=== PATIENT | male | born 1970 | race Caucasian/White ===

== ENCOUNTER 2022-01-16 16:41 | Emergency (ER) | payer BC, SELFPAY ==
--- NOTE | ~2022-01-16 | CT_ITS ---
EXAMINATION: CT abdomen pelvis w con DATE: 01/16/2022 20:37 INDICATION: Hematuria. Fever. TECHNIQUE: Computed tomography (CT) of the abdomen and pelvis was performed with 100 mL Omnipaque 350 intravenous contrast. Automated exposure control and iterative reconstruction technique were employe d. The dose-length product was 1026.94 mGy-cm. COMPARISON: None. FINDINGS: The visualized portions of the lung bases demonstrate minimal atelectasis. Calcified right lung nodules are consistent with old granulomatous disease. There is a 6 mm nodule in left lower lobe . There is a 5 mm nodule in left lower lobe. There is a 4 mm nodule in left lower lobe. No pleural ef fusion. The heart size is normal. No pericardial effusion. The liver, gallbladder, pancreas, adrenal glands, and right kidney are normal. There is a small area of focal volume loss of left kidney. Calci fications in the spleen are consistent with old granulomatous disease. The bladder is not well disten ded. There is diffuse bladder wall thickening. There is an umbilical hernia containing fat. There are no dilated loops of bowel. The appendix is normal. There are no pathologically enlarged lymph nodes. There is no free intraperitoneal fluid. There is mild thoracal lumbar spondylosis. IMPRESSION: 1. Diffuse bladder wall thickening, which may be seen with cystitis. 2. Pulmonary nodules measuring up to 6 mm, probably benign. Consider noncontrast low-dose chest CT in 6-12 months. 3. Umbilical hernia containing fat. Reviewed, dictated and finalized at location A. IMPRESSION: 1. Diffuse bladder wall thickening, which may be seen with cystitis. 2. Pulmonary nodules measuring up to 6 mm, probably benign. Consider noncontras t low-dose chest CT in 6-12 months. 3. Umbilical hernia containing fat.
[2022-01-16 17:08] VITALS: BP 141/93; PULSE 77; RESP 20; TEMP 36.6; O2SAT 98
[2022-01-16 17:15] LABS: Basophils Percent Auto 0.2 % (0.2-1.2); Eosinophils Absolute Auto 0.3 K/mm3 (0-0.3); Eosinophils Percent Auto 2.6 % (0-4.4); Hematocrit 43.5 % (42.0-52.0); Hemoglobin 15.1 g/dL (14.0-18.0); Immature Granulocyte Absolute 0.05 K/mm3 (0.00-0.031); Immature Granulocyte Percent A 0.4 % (0-0.5); Lymphocytes Absolute Auto 3.59 K/mm3 (0.9-3.2); Lymphocytes Percent Auto 29.3 % (18.3-44.2); Mean Corpuscular HGB Conc 34.7 g/dl (32-36); Mean Corpuscular Hemoglobin 30.3 pg (26-34); Mean Corpuscular Volume 87.2 fl (80-100); Mean Platelet Volume 8.8 fl (7.4-10.4); Monocytes Absolute Auto 0.8 K/mm3 (0.1-0.6); Monocytes Percent Auto 6.6 % (2.6-8.5); Neutrophils Absolute Auto 7.5 K/mm3 (1.3-6.7); Neutrophils Percent Auto 60.9 % (45.5-73.1); Platelet Count Result 193 k/mm3 (150-375); Red Blood Count 4.99 M/mm3 (4.6-6.20); Red Cell Distribution Width 12.1 % (11.5-14.5); White Blood Count 12.3 K/mm3 (4.5-10.0)
[2022-01-16 17:21] LABS: Add Urine Microscopic? YES; Appearance Urine Turbid (Clear); Bilirubin Urine 1+ (Negative); Blood Urine 3+ (Negative); Color Urine Red (Yellow); Glucose Urine UA Negative (Negative); Ketones Urine Negative (Negative); Leukocyte Esterase Ur Negative LEU/UL (Negative); Nitrate Urine Negative (Negative); Protein Urine 3+ mg/dL (Negative); Specific Grav Ur >= 1.030 (1.001-1.035); Urobilinogen Urine 0.2 mg/dL (<2.0); pH Urine 5.5 (5.0-9.0)
[2022-01-16 17:25] LABS: Alanine Aminotransferase 58 U/L (6-50); Albumin Level 4.5 g/dL (3.5-5.1); Alkaline Phosphatase 95 U/L (38-126); Anion Gap 10 mmol/L (8-16); Aspartate Amino Transferase 46 U/L (17-59); Bilirubin,Total 0.5 mg/dL (0.2-1.3); Blood Urea Nitrogen 24 mg/dL (9-20); Calcium 9.1 mg/dL (8.4-10.2); Carbon Dioxide 23 mmol/L (22-30); Chloride 107 mmol/L (98-107); Estimated CRCL calculation 115 ml/min; Estimated Glomerular Filt Rate > 60; Glucose 145 mg/dL (65-110); Potassium 4.4 mmol/L (3.4-5.0); Sodium 140 mmol/L (137-145)
[2022-01-16 17:35] LABS: Bacteria Urine Trace /hpf; Mucus Urine Rare /lpf; RBC Urine >75 /hpf (0-2); WBC Urine 51-75 /hpf
--- NOTE | 2022-01-16 18:24 | ED.GENADULT ---
HPI - General Adult General Chief complaint: Urogenital-Male Stated complaint: HEMATURIA Time Seen by Provider: 01/16/22 18:12 History of Present Illness HPI narrative: Patient is a 51-year-old male here for evaluation of urinary symptoms over the past several days. Patient states that his symptoms started out with some burning with urination 4 days ago and also a fever of 101 degrees. He told his primary care doctor who recommended ED evaluation at that time. Patient decided to wait for several days, states his symptoms did improve for a day, but today he started noting blood in his urine and urinary urgency. He denies any back pain, swelling, fevers since 2 days ago, nausea, vomiting, abdominal pain, chest pain or shortness of breath. Related Data Allergies Allergy/AdvReac Type Severity Reaction Status Date / Time No Known Allergies Allergy Unknown Unverified 12/17/21 15:48 Review of Systems Review of Systems: Gen: Denies fevers or chills Eyes: Denies eye pain or visual change ENT: Denies congestion Respiratory: Denies shortness of breath or cough CV: Denies chest pain or palpitations GI: Denies abdominal pain nausea, emesis or diarrhea : Reports urgency and hematuria. Musculoskeletal: Denies back pain or muscle pain Neuro: Denies numbness, tingling, weakness or focal weakness Skin: Denies rash Except as documented, all other systems reviewed and negative PMFSH Family History Family History Other Diabetes mellitus Social History Social History Smoking status: Never smoker Smoking end date: 05/04/05 Alcohol intake: current Alcohol use details: social Substance use: never Gender identity (if verbalized by the patient): Male Exam Narrative: APPEARANCE: Well appearing, no pain in distress, well-nourished. Head: Normocephalic and atraumatic. EYES: PERRLA/EOMI, conjunctivae clear NOSE: No nasal drainage EARS: External ear normal in appearance THROAT: Oropharynx is clear. Mucous membranes are moist. NECK: Supple. No adenopathy, no masses. RESPIRATORY: Airway patent, respirations nonlabored. Clear to auscultation bilaterally, no rales, rhonchi, wheezing. CARDIOVASCULAR: Regular rate and rhythm without murmurs, rubs, or gallops. ABDOMINAL: Normoactive bowel sounds. Soft, nontender, nondistended. No rebound tenderness or guarding. MUSCULOSKELETAL: Extremities are warm and well-perfused. Moves all extremities well. No edema. NEURO: Normal speech. No focal neurologic deficits. SKIN: Skin is warm and dry. No rashes. PSYCHIATRIC: Normal affect/mood. Course Vital Signs Vital signs: Vital Signs Temperature 97.9 F 01/16/22 17:08 Pulse Rate 77 01/16/22 17:08 Respiratory Rate 20 01/16/22 17:08 Blood Pressure 141/93 H 01/16/22 17:08 Pulse Oximetry 98 01/16/22 17:08 Oxygen Delivery Room Air 01/16/22 17:08 Temperature 97.9 F 01/16/22 17:08 Pulse Rate 80 01/16/22 21:40 Respiratory Rate 18 01/16/22 21:40 Blood Pressure 142/68 H 01/16/22 21:40 Pulse Oximetry 99 01/16/22 21:40 Oxygen Delivery Room Air 01/16/22 17:08 Medical Decision Making MDM Narrative Medical decision making narrative: 51 year old male here for evaluation of hematuria, urgency and burning over the past 4 days. Here is he is non-toxic appearing with normal vital signs. He has no abdominal tenderness or CVA tenderness. Workup significant for mikhail hematuria on UA with WBC, leukocytosis to 12.3, CT abdomen with findings suggestive of cystitis. Likely hemorrhagic cystitis; Doubt glomerular bleeding given presence of blood clots in urine. Considered prostatitis but feel unlikely given patient's lack of pelvic pain/systemic symptoms. Shared decision making was used; Will treat with cipro as outpatient and have patient follow up with urology should his symptoms persist. He was given return precautions
[2022-01-16 19:30] VITALS: BP 137/70; PULSE 78; RESP 20; O2SAT 99
[2022-01-16] MEDS: CIPROFLOXACIN 500 MG TAB PO (21:04)
[2022-01-16 21:40] VITALS: BP 142/68; PULSE 80; RESP 18; O2SAT 99
== END 2022-01-16 21:41 | disposition home or self-care (01) ==
PROVIDERS: Emergency Medicine; Emergency Provider Emergency Medicine; PCP Family Medicine
DX: N39.0 Urinary tract infection, site not specified (principal); Z87.891 Personal history of nicotine dependence
CPT/HCPCS: 36415; 74177; 80053; 81001; 85025; 87077; 87086; 87186; 99284; A9270; Q9967

== ENCOUNTER 2023-08-18 14:40 | Outpatient (CLI) | payer BC, SELFPAY ==
--- NOTE | ~2023-08-18 | CT_ITS ---
EXAMINATION:CT diagnostic chest wo con DATE: 08/18/2023 15:15 INDICATION: Solitary pulmonary nodule. TECHNIQUE: Computed tomography (CT) of the chest was performed without intravenous contrast. Automate d exposure control and iterative reconstruction technique were employed. The dose-length product (DLP ) was 271.80 mGy-cm. COMPARISON: None. FINDINGS: There is a 5 mm nodule in right lower lobe. There is a 3 mm nodule in right upper lobe. The re is a 6 mm nodule in left lower lobe. There is a 3 mm nodule in left upper lobe. Calcified pulmonar y nodules and calcified right hilar lymph nodes are consistent with old granulomatous disease. No ple ural effusion. The heart size is normal. No pericardial effusion. There is mild thoracic spondylosis. There is mild chronic anterior wedging of multiple vertebral bodies. IMPRESSION: 1. Pulmonary nodules measuring up to 6 mm, probably benign. Consider noncontrast low-dose chest CT in 6-12 months. Reviewed, dictated and finalized at location E. IMPRESSION: 1. Pulmonary nodules measuring up to 6 mm, probably benign. Consider noncontras t low-dose chest CT in 6-12 months.
== END 2023-08-18 14:41 | disposition home or self-care (01) ==
PROVIDERS: PCP Family Medicine; Visit Provider Physician Assistant
DX: R91.1 Solitary pulmonary nodule (principal); Z87.891 Personal history of nicotine dependence; R91.8 Other nonspecific abnormal finding of lung field
CPT/HCPCS: 71250

== ENCOUNTER 2023-10-13 03:12 | Day surgery (SDC) | payer BC, SELFPAY ==
[2023-09-30 13:13] VITALS: BMI 33.5
[2023-10-13 11:49] VITALS: BP 116/72; PULSE 57; RESP 18; TEMP 36.7; O2SAT 97
[2023-10-13] MEDS: LACTATED RINGERS 1,000 ML 150 ML IV CONT (11:51)
--- NOTE | 2023-10-13 12:34 | P.PNAN_ITS ---
Anes - Initial Pre Proc Eval Procedure: Operation Date: 10/13/23 13:00 Proposed Procedures p Screening Colonoscopy - Karl Ronquillo DO Date/Time: 10/13/23 12:34 Surgeon: Karl Ronquillo DO Pre Op Diagnosis: Screening for malignant neoplasm of colon Patient Data Age: 53 Gender: M Height: 1.78 m Weight: 106 kg Last Vital Signs Temp 98.1 F 10/13/23 11:49 Pulse 57 L 10/13/23 11:49 Resp 18 10/13/23 11:49 BP 116/72 10/13/23 11:49 Pulse Ox 97 10/13/23 11:49 O2 Del Method Room Air 10/13/23 11:49 Allergies Allergy/AdvReac Type Severity Reaction Status Date / Time No Known Allergies Allergy Unknown Verified 10/13/23 11:48 Home Medications Medication Instructions Recorded Confirmed Type tadalafil 5 mg tablet 5 mg PO DAILY #90 tabs 08/04/23 10/13/23 Rx Patient hx anesthesia problems: none Family hx anesthesia problems: none Results Review: All pre-operative results and documents have been reviewed as part of the pre- operative evaluation. [facility] Family History Family History Other Diabetes mellitus Social History Social History Smoking packs per day: 2 Smoking cigarettes per day: 40.0 Years smoked: 16 Smoking pack-years: 32.00 Smoking status: Former smoker Tobacco type: cigarettes Smoking end date: 05/04/05 Alcohol intake: current Drinks per week: 7 Alcohol use details: social Substance use: never Living arrangements: with family Occupation/Education: occupation Gender identity (if verbalized by the patient): Male Spiritual care concerns: No Anes - Eval Final PreProcedure Day of Procedure 10/13/23 12:34 Patient weight: normal Heart: regular rate and rhythm Lungs: clear to auscultation Airway: Mallampati scale class II Neurological: alert and oriented Last oral intake: >/= 8 hours ASA classification: II Emergent: no Anesthetic plan: proceed Anesthesia type and monitoring: general GIVS and standard monitoring Results Review: All pre-operative results and documents have been reviewed as part of the pre- operative evaluation. Informed Consent: The patient's anesthetic plan and its attendant risks and benefits were discussed with the patient/family/POA. Questions were solicited and answers provided to the satisfaction of the patient/family/POA.
--- NOTE | 2023-10-13 13:06 | PM.IMHP ---
H&P: HPI History of Present Illness Date/Time: 10/13/23 13:06 Chief Complaint: screening for colorectal cancer Narrative: this is a 53-year-old man who presents for colonoscopy. He has never had a colonoscopy before. He denies any hematochezia or melena. He denies family history colon cancer. Review of Systems Review of Systems: All systems reviewed & are unremarkable except as noted in HPI and below Constitutional: Constitutional: Denies chills, Denies fever(s), Denies headache(s) and Denies weight loss Eyes: Eyes: Denies change in vision ENT: Denies dizziness, Denies headache(s), Denies neck mass and Denies throat swelling Cardiovascular: Cardiovascular: Denies chest pain, Denies lightheadedness and Denies dyspnea Respiratory: Respiratory: Denies cough, Denies dyspnea and Denies wheezing Gastrointestinal: Gastrointestinal: Denies abdominal pain, Denies change in bowel habits, Denies nausea and Denies vomiting Genitourinary: Genitourinary: Denies hematuria and Denies dysuria Musculoskeletal: Musculoskeletal: Reports as per HPI Integumentary/Breasts: Skin/Breast: Reports as per HPI Neurologic: Denies dizziness and Denies headache(s) Allergic/Immunologic: Allergic/Immunologic: Denies throat swelling and Denies wheezing PMF Family History Family History Other Diabetes mellitus Social History Social History Smoking packs per day: 2 Smoking cigarettes per day: 40.0 Years smoked: 16 Smoking pack-years: 32.00 Smoking status: Former smoker Tobacco type: cigarettes Smoking end date: 05/04/05 Alcohol intake: current Drinks per week: 7 Alcohol use details: social Substance use: never Living arrangements: with family Occupation/Education: occupation Gender identity (if verbalized by the patient): Male Spiritual care concerns: No Meds Home Medications and Allergies Home Medications Medication Instructions Recorded Confirmed Type tadalafil 5 mg tablet 5 mg PO DAILY #90 tabs 08/04/23 10/13/23 Rx Allergies Allergy/AdvReac Type Severity Reaction Status Date / Time No Known Allergies Allergy Unknown Verified 10/13/23 11:48 Vital Signs Vital Signs - 24 hr 10/13/23 11:49 Temperature 36.7 C Pulse Rate 57 L Respiratory Rate 18 Blood Pressure 116/72 Pulse Oximetry 97 Oxygen Delivery Room Air Exam Const: General: no acute distress and alert Orientation/consciousness: patient oriented x3 HENMT: Head: normocephalic and atraumatic Ears: hearing grossly normal bilaterally Face/Nose/Sinus: Normal nares present Mouth: Yes Normal oral and palatal mucosa present Eyes: Periorbital: periorbital findings normal Sclera: sclerae normal EOM: EOMs intact bilaterally Neck: Neck: normal visual inspection, no lymphadenopathy and trachea midline Chest: Chest palpation & inspection: normal inspection of the chest Resp: Effort & Inspection: normal respiratory effort Auscultation: clear to auscultation bilaterally Cardio: Jugular venous distension: no JVD Rate: regular rate Rhythm: regular rhythm Heart sounds: S1 normal heart sound present and S2 normal heart sound present Peripheral pulses: Peripheral pulses 2+ throughout GI: Inspection: normal to inspection GI Palp: Yes Soft to palpation, No Tenderness to palpation present (GI), No Guarding due to palpation present (GI) and No Rebound tenderness present Percussion: Yes normal to percussion Auscultation: normal bowel sounds : General: Yes no CVA tenderness Back/Spine/Pelvis: Back: no CVA tenderness Neuro: General: patient oriented x3, no focal motor deficits and CN's II-XI intact bilaterally Cognition (Neuro): normal cognition Speech: normal speech Motor exam (neuro): 5/5 motor strength present throughout Extrem: General: capillary refill normal and no clubbing, cyanosis or edema Assessm
[2023-10-13 13:39] VITALS: BP 103/56; PULSE 48; RESP 16; O2SAT 95
[2023-10-13 13:49] VITALS: BP 102/70; PULSE 49; RESP 16; O2SAT 96
[2023-10-13 13:59] VITALS: BP 103/66; PULSE 46; RESP 19; O2SAT 98
== END 2023-10-13 14:10 | disposition home or self-care (01) ==
PROVIDERS: PCP Family Medicine; Visit Provider Surgery
PROC: 0DJD8ZZ Inspection of Lower Intestinal Tract, Via Natural or Artificial Opening Endoscopic (ICD-10-PCS; CPT 45378; principal; 2023-10-13 13:00)
DX: Z12.11 Encounter for screening for malignant neoplasm of colon (principal); K63.5 Polyp of colon; Z87.891 Personal history of nicotine dependence
CPT/HCPCS: 45385; 88305; J2704; J7120

== ENCOUNTER 2024-02-01 07:51 | Outpatient (CLI) | payer BC, SELFPAY ==
--- NOTE | ~2024-02-01 | CT_ITS ---
CT Scan of the Chest without Contrast: Clinical Indication: Pulmonary nodule Technique: Contiguous sections were acquired throughout the chest without intravenous contrast. Dose reduction technique was used on this scan by utilizing automated exposure control and iterative recon struction technique. The dose-length product (DLP) was 288.14 mGy-cm. COMPARISON: 08/18/2023 Findings: There is no evidence of any significant mediastinal, hilar or axillary lymphadenopathy. The mediastin al soft tissues appear normal. There is no evidence of pleural or pericardial effusion. 5 mm right middle lobe pulmonary nodule present, unchanged. Stable small fissural nodules along the r ight minor fissure. Stable calcified right basilar granuloma. Stable 5 mm right lower lobe pulmonary nodule (axial image 77). Stable 6 mm left lower lobe pulmonary nodule (axial image 78). Stable small pleural-based nodule medially at the left lower lobe. Images through the upper abdomen reveal no abnormalities. Impression: Stable subcentimeter pulmonary nodules, as detailed above, largest measuring 6 mm. Reviewed, dictated and finalized at location M. Impression: Stable subcentimeter pulmonary nodules, as detailed above, largest measuring 6 mm.
== END 2024-02-01 07:52 | disposition home or self-care (01) ==
PROVIDERS: PCP Family Medicine; Visit Provider Physician Assistant
DX: R91.8 Other nonspecific abnormal finding of lung field (principal)
CPT/HCPCS: 71250

== ENCOUNTER 2024-11-05 11:27 | Emergency (ER) | payer OTHER, BC, SELFPAY ==
--- NOTE | ~2024-11-05 | XR_ITS ---
HISTORY: Pain after hyper extension COMPARISON: None TECHNIQUE: 3 views of the right knee were performed FINDINGS: Acute (likely) avulsion fracture of the fibular head is identified. Medial and lateral tibiofemoral joint space narrowing is identified. Large suprapatellar joint effusion is identified. The infrapatellar joint space is clear. IMPRESSION: Acute (likely) avulsion fracture of the fibular head is suspected with a large suprapate llar joint effusion. Reviewed, dictated and finalized at location A. IMPRESSION: Acute (likely) avulsion fracture of the fibular head is suspected with a large suprapatellar joint effusion.
[2024-11-05 11:28] VITALS: BP 135/76; PULSE 74; RESP 18; TEMP 36.6; O2SAT 98
--- OUTSIDE RECORDS SUMMARY | 2024-11-05 11:29 | XMS_ITS | Clinical Summary ---
Author Organization [facility] Address [address] [place] [id number] Care Team Providers Care Ibm Mainframe Systems Programmer Name Role Phone Unavailable Primary Care Provider Unavailabl e Social History Tobacco Use Types Packs/Day Years Used Date Smoking Tobacco: Never Assessed Sex and Gender Information Value Date Recorded Sex Assigned at Not on file Legal Sex Male 8:01 PM CDT Gender Identity Not on file Sexual Orientation Not on file Plan of Treatment Health Maintenance Due Date Last Done Comments Colorectal Cancer Screening Colonoscopy (10 Years) 1969 Annual Physical 1972 Hepatitis C 1987 DTaP, Tdap and Td Vaccines ( 1 - Tdap) 1988 Hepatitis B Vaccines (1 of 3 - 19+ 3-dose series) 1988 Pneumococcal Vaccine: 50+ Ye ars (1 of 1 - PCV) 2019 Zoster Vaccines (1 of 2) 2019 COVID-19 Vaccine (2023-2 5 season) 2024 Meningococcal B Vaccine Aged Out No l onger eligible based on patient's age to complete this topic Meningococcal Vaccine Aged Out No olive zev eligible based on patient's age to complete this topic RSV Immunizations Under 20 Months Aged Out No longer eligible based on patient's age to complete this topic
--- OUTSIDE RECORDS SUMMARY | 2024-11-05 12:21 | XMS_ITS | Clinical Summary ---
Author Organization [facility] Address [address] [place] [id number] Care Team Providers Care Comber Operator Name Role Phone Unavailable Primary Care Provider [...]
--- NOTE | 2024-11-05 12:22 | ED_ITS ---
HPI - Extremity Injury (Lower) General Chief Complaint: Extremity Injury, Lower Stated Complaint: rle injury Time Seen by Provider: 11/05/24 12:04 Source: patient Mode of arrival: ambulatory Limitations: no limitations History of Present Illness HPI Narrative: 54 years old white male came to the ED by private car complaining of pain at the right knee anteriorly and posteriorly also pain radiating to the back of the right lower leg after tripping on a fence with possible hyper extension of the knee. Prior to arrival. Patient denies other injuries. Related Data Allergies Allergy/AdvReac Type Severity Reaction Status Date / Time No Known Allergies Allergy Unknown Verified 08/11/24 16:27 Review of Systems Review of Systems: All systems reviewed & are unremarkable except as noted in HPI and below PMFSH Family History Family History Other Diabetes mellitus Social History Social History Smoking packs per day: 1 Smoking cigarettes per day: 20.0 Years smoked: 16 Smoking pack-years: 16.00 Smoking status: Former smoker Tobacco type: cigarettes Second hand tobacco smoke exposure: No Smoking end date: 05/04/05 Alcohol intake: current Alcohol use details: social Substance use: never Substance use type: does not use Do You Feel Safe in your Home?: Yes Lack of Transportation: No Lack of Food: Never True Current Housing: I Have Housing Concerned About Future Housing: No Difficulty Paying Gas/Electric Bills: No Difficulty Paying for Meds: No Currently Unemployed: No Education: Don't Know Difficulty w/ Childcare or Family Care: No Living arrangements: with family Occupation/Education: occupation Gender identity (if verbalized by the patient): Male Sexual Orientation (if Verbalized by the Patient): Straight or Heterosexual Spiritual care concerns: No Exam Narrative: General appearance: Well-developed, well-nourished Skin: Normal color Head: Normocephalic, nontraumatic Eyes: Clear conjunctiva ENT: Oropharynx normal, ears normal, nose normal Neck: Supple, nontender Chest and respiratory: Airway patent, no respiratory distress, no accessory muscle use Heart: Regular rate/rhythm Abdomen: Soft, nontender, no organomegaly, quiet bowel sounds Vascular: Normal peripheral pulses, normal capillary refill. Musculoskeletal: Right knee exam showed slight diffuse tenderness, no swelling, no bruises, no deformity, slight diffuse tenderness at the right calf muscle. Neurologic: Alert and oriented ?3, BLOW DOWN OPERATOR is normal as tested, no gross motor deficit Course Vital Signs Vital signs: Vital Signs Temperature 36.6 C 11/05/24 11:28 Pulse Rate 74 11/05/24 11:28 Respiratory Rate 18 11/05/24 11:28 Blood Pressure 135/76 11/05/24 11:28 Pulse Oximetry 98 11/05/24 11:28 Oxygen Delivery Room Air 11/05/24 11:28 Temperature 36.6 C 11/05/24 11:28 Pulse Rate 74 11/05/24 11:28 Respiratory Rate 18 11/05/24 11:28 Blood Pressure 135/76 11/05/24 11:28 Pulse Oximetry 98 11/05/24 11:28 Oxygen Delivery Room Air 11/05/24 11:28 MDM - Extremity Injury (Lower) MDM Narrative Medical decision making narrative: Patient presents with right knee pain after twist Differential diagnosis include strain/sprain less likely fracture The x-ray of over his showed no acute osseous abnormality Diagnosis right knee sprain/strain, days discharged on naproxen, and knee immobilizer was 1. Differential Diagnosis Differential diagnosis: Likely other (As above) Imaging Data Radiologist's impression: Impressions Knee X-Ray 11/05/24 13:15 IMPRESSION: Acute (likely) avulsion fracture of the fibular head is suspected with a large suprapatellar joint effusion. Critical Care Time Critical Care Time Critical Care Time: No Discharge Plan Discharge Clinical Impression: Closed fibular fracture Patient Disposition: Home Condition: Stable Instructions: Leg Fracture (ED), Knee Immobilizer (ED) Additional Instructions: Return if symptoms are worsening , call your family physician for appointment, take Tylenol, ibuprofen as as needed for aches and pain, continue home medications. Crutches as needed Patient Language: [place] Prescriptions: New hydrocodone-acetaminophen 5-325 mg tablet 1 tablet PO Q4H Qty: 20 0RF No Action tadalafil 5 mg tablet See Rx Instructions .ROUTE .COMPLEX Qty: 90 0RF Dose Instruction: TAKE 1 TABLET BY MOUTH EVERY DAY Rx Instructions: TAKE 1 TABLET BY MOUTH EVERY DAY Follow-up/Referrals: Delroy Cueto MD [Primary Care Provider] - Neel Regan MD [Physician] - 11/07/24
[2024-11-05] MEDS: HYDROcodone/acetaminophen (*CRX) 5-325 MG TABLET 1 TAB PO (12:48)
[2024-11-05] MEDS: IBUPROFEN 600 MG TABLET PO (12:48)
== END 2024-11-05 15:22 | disposition home or self-care (01) ==
PROVIDERS: Emergency Provider Emergency Medicine; PCP Family Medicine
DX: S82.831A Other fracture of upper and lower end of right fibula, initial encounter for closed fracture (principal); Z87.891 Personal history of nicotine dependence; W18.41XA Slipping, tripping and stumbling without falling due to stepping on object, initial encounter
CPT/HCPCS: 73562; 99284; A9270

== ENCOUNTER 2024-11-20 11:39 | Inpatient (IN) | payer BC, SELFPAY ==
[2024-11-20] VITALS (13 sets, daily range): BP systolic 108–161; BP diastolic 68–98; PULSE 70–125; RESP 15–116; TEMP 36.3–38.1; O2SAT 92–99; BMI 35.6
--- NOTE | ~2024-11-20 | XR_ITS ---
EXAMINATION: XR chest 1V portable DATE: 12/03/2024 05:46 INDICATION: Pneumonia TECHNIQUE: frontal view of the chest was obtained. COMPARISON: Chest radiograph dated 12/02/2024 FINDINGS: Unchanged blunting lungs are otherwise clear with no pulmonary edema or pneumothorax. At the bilatera l costophrenic angles consistent with persistent small bilateral pleural effusions. The cardiomediast inal silhouette is normal. IMPRESSION: 1. Persistent small bilateral pleural effusions. Reviewed, dictated and finalized at location A.
--- NOTE | ~2024-11-20 | XR_ITS ---
CHEST RADIOGRAPH CLINICAL HISTORY: Pneumonia, . COMPARISON: 11/30/2024 TECHNIQUE: Single portable view of the chest. FINDINGS Right upper extremity PICC line redemonstrated with its tip projecting over the cavoatrial junction. The remainder of the cardiomediastinal silhouette is otherwise unremarkable. Blunting of the left costophrenic sulcus is also redemonstrated suggesting a small left-sided pleural effusion. The remainder of the lungs are clear. IMPRESSION: Small left-sided pleural effusion without focal infiltrate. Reviewed, dictated and finalized at location A.
--- NOTE | ~2024-11-20 | CT_ITS ---
EXAMINATION: CTA chest PE abdomen pel DATE: 11/26/2024 14:58 CDT INDICATION: Increased ventilatory requirements. COMPARISON: 11/23/2024 TECHNIQUE: Computed tomographic angiography (CTA) of the chest was performed, along with multiple con tiguous axial images of the abdomen and pelvis with 100 mL Omnipaque-350 intravenous contrast. The do se-length product was 2380.95 mGy-cm. Maximum intensity projection 3D-reconstructions of the aorta an d other arteries were constructed by the technologist on a separate workstation. FINDINGS/OBSERVATIONS: PULMONARY ARTERIES: No filling defect is identified within the main or proximal pulmonary artery. The main pulmonary artery is not enlarged. THORACIC AORTA: No aneurysmal dilatation or dissection is present. The great vessels are intact LUNGS: Endotracheal tube is identified in good position. Small bilateral pleural effusions, right greater than left with adjacent consolidation - an interval change from prior. A 5 and 6 mm nodule is identified within the right middle and upper lobes, unchanged from prior. The remainder of the lungs are clear. MEDIASTINUM: Calcified lymph nodes within the mediastinum suggesting prior granulomatous disease. No morphologically suspicious or pathologically enlarged lymph nodes are identified within the mediastin um or bilateral axilla. BONES OF THE CHEST: No acute fracture. No significant degenerative disease. No lytic or blastic lesions. HEART: The heart is within the upper limits of normal for size, without pericardial effusion. LIVER: The liver enhances homogeneously and is enlarged measuring 24 cm in longitudinal dimension. Decreased perihepatic fluid when compared with previous examination on 11/23/2024. GALLBLADDER AND BILIARY SYSTEM: The gallbladder is distended, with surrounding inflammatory change. Vicarious excretion of contrast i s identified within the gallbladder. PANCREAS: The pancreas enhances homogeneously without ductal dilatation. SPLEEN: Punctate calcifications identified within the splenic parenchyma, suggesting prior granulomat ous disease. The remainder of the spleen otherwise enhances homogeneously and is not enlarged. KIDNEYS: The bilateral kidneys enhance symmetrically without hydronephrosis or renal calculi. ADRENAL GLANDS: Unremarkable. GASTROINTESTINAL TRACT: Orogastric tube extends into the stomach. Simple fluid now is detected within the lower abdomen and paracolic gutters. Staple line within the right lower quadrant No discrete free intraperitoneal air is noted. Colon is decompressed. APPENDIX: Surgically absent. VASCULATURE: Unremarkable. No aneurysmal dilatation or significant stenosis. LYMPH NODES: No pathologically enlarged or morphologically suspicious lymph nodes within the retroperitoneum or at the root of the mesentery. PELVIC STRUCTURES: The bladder is decompressed with a Mancini catheter, limiting its evaluation. The prostate gland is not enlarged. BODY WALL AND MUSCULOSKELETAL: Midline incision remains open with a wound VAC in place. Age advanced degenerative disease within the thoracic and lumbosacral spines. IMPRESSION: No pulmonary embolus. No aortic dissection. Small bilateral pleural effusions, right greater than left with adjacent consolidation, an interval c hange from prior. Gallbladder distention with mural thickening and surrounding inflammatory change. Right middle and lower lobe nodules, for which follow-up may be performed once patient is beyond this acute phase. No discrete intraperitoneal air is appreciated. Simple free fluid within the dependent portions of the abdomen. Reviewed, dictated and finalized at location A. IMPRESSION: No pulmonary embolus. No aortic dissection. Small bilateral pleural effusions, right greater than left with adjacent consol idation, an interval change from prior. Gallbladder distention with mural thickening and surrounding inflammatory garcia e. Right middle and lower lobe nodules, for which follow-up may be performed once patient is beyond this acute phase. No discrete intraperitoneal air is appreciated. Simple free fluid within the dependent portions of the abdomen.
--- NOTE | ~2024-11-20 | XR_ITS ---
XR chest 1V portable 11/24/2024 06:50 Indication: Intubation. Respiratory distress. Procedure: AP portable chest Comparison: Comparison to multiple prior studies sequentially, with oldest reviewed study dated 11/23. Findings: Heart size normal. Endotracheal tube tip 4.4 cm above the kristopher. NG tube in the stomach. R ight subclavian PICC line tip in SVC. Borderline heart size with pulmonary edema. Bibasilar consolida tion may represent a combination of edema, pneumonia and/or atelectasis. Small pleural effusions. Impression: 1: Progression of bibasilar consolidation since prior examination which may represent a combination o f edema, pneumonia and/or atelectasis. Reviewed, dictated and finalized at location A. Impression: 1: Progression of bibasilar consolidation since prior examination which may rep resent a combination of edema, pneumonia and/or atelectasis.
--- NOTE | ~2024-11-20 | CT_ITS ---
EXAMINATION: CT abdomen pelvis w con DATE: 11/20/2024 14:29 INDICATION: abd pain/distension; diarrhea; WBC 22; fever TECHNIQUE: Computed tomography (CT) of the abdomen and pelvis was performed with 100 mL Omnipaque-350 intravenous contrast. Automated exposure control and iterative reconstruction technique were employe d. The dose-length product was 965.74 mGy-cm. COMPARISON: 01/16/2022. FINDINGS: Lower thorax: Stable left lower lobe granulomas. Liver: Normal. Biliary/Gallbladder: Gallbladder is normal. No bile duct dilation. Pancreas: No mass or duct dilation. Spleen: Normal. Adrenals:No mass. Kidneys: No suspicious mass, obstructing stone, or hydronephrosis. GI tract: No small or large bowel dilation. Appendix is dilated up to 2.4 cm. Appendicolith lodged in the mid appendix. Additional unobstructed appendicoliths in the distal appendix. Cecal wall edema. M oderate surrounding inflammatory change and moderate fluid. Discontiguous appendix wall/enhancement g as in the wall and perhaps just outside the appendiceal lumen. Appendix. No walled off or rim-enhanci ng fluid collection. Mesentery/Peritoneum: No mass or diffuse ascites. Retroperitoneum: No mass. Pelvis: Pelvic organs are within normal limits. Soft Tissues: Small, fat-containing umbilical hernia. Bones: No acute osseous finding. IMPRESSION: Severe appendicitis, with findings concerning for wall breakdown/necrosis and appendiceal rupture. No periappendiceal abscess. Reviewed, dictated and finalized at location K. IMPRESSION: Severe appendicitis, with findings concerning for wall breakdown/necrosis and a ppendiceal rupture. No periappendiceal abscess.
--- NOTE | ~2024-11-20 | XR_ITS ---
XR abdomen gastric tube insert, XR chest ET placement INDICATION: Evaluate NG tube position. TECHNIQUE: Limited KUB perform for evaluating NG tube . COMPARISON: No prior studies for comparison. FINDINGS: NG tube tip in the stomach. Bibasilar airspace disease may represent edema or pneumonia. Vi sualized bowel gas pattern is unremarkable.Endotracheal tube tip 4.3 cm above the kristopher. No pneumoth orax. IMPRESSION: 1: NG tube tip in the stomach. 2: Bibasilar airspace disease, edema versus pneumonia. Reviewed, dictated and finalized at location A. IMPRESSION: 1: NG tube tip in the stomach. 2: Bibasilar airspace disease, edema versus pneumonia.
--- NOTE | ~2024-11-20 | XR_ITS ---
CHEST RADIOGRAPH CLINICAL HISTORY: Pneumonia, . COMPARISON: 12/01/2024 TECHNIQUE: Single portable view of the chest. FINDINGS Right upper extremity PICC line identified with projecting over the cavoatrial junction. The remainder of the cardiomediastinal silhouette is otherwise unremarkable. Increasing bilateral pleural effusions, right greater than left. Increased interstitial markings are identified bilaterally, findings suggesting mild pulmonary vascul ar congestion. The remainder of the lungs are clear. IMPRESSION: Mild pulmonary vascular congestion with increasing bilateral pleural effusions, as detailed above. Reviewed, dictated and finalized at location A.
--- NOTE | ~2024-11-20 | XR_ITS ---
CHEST RADIOGRAPH CLINICAL HISTORY: intubated . COMPARISON: None available TECHNIQUE: Single portable view of the chest. FINDINGS: Right upper extremity PICC line tip projecting over the cavoatrial junction. Endotracheal tube is identified with its tip projecting approximately 6.5cm above the base of the car samson, likely secondary to imaging projection. Orogastric tube identified with its tip extending below the left hemidiaphragm, presumably within the stomach, although the last hole projects over the mid to distal esophagus for which advancement of a pproximately 4-6 cm is recommended for optimal radiographic placement. The remainder of the cardiomediastinal silhouette is partially obscured and otherwise unremarkable. Blunting of the left costophrenic sulcus suggesting a small right-sided pleural effusion. Redemonstration of a moderate right-sided pleural effusion. The remainder of the lungs are clear. IMPRESSION: Moderate right and small left-sided pleural effusion. Endotracheal tube in good position. Advancement of the orogastric tube approximately 4 to 6 cm is recommended for optimal radiographic pl acement. Reviewed, dictated and finalized at location A. IMPRESSION: Moderate right and small left-sided pleural effusion. Endotracheal tube in good position. Advancement of the orogastric tube approximately 4 to 6 cm is recommended for o ptimal radiographic placement.
--- NOTE | ~2024-11-20 | US_ITS ---
EXAMINATION: US venous doppler [facility] DATE: 11/26/2024 15:25 INDICATION: Continued fever with lower extremity swelling TECHNIQUE: Grayscale ultrasound images without and with compression and Doppler ultrasound images of the bilateral lower extremity veins were obtained. COMPARISON: None. FINDINGS: The visualized portions of right common femoral vein, profunda (deep) femoral vein, femoral vein, pop liteal vein, peroneal veins, posterior tibial veins, and greater saphenous vein outflow are patent. The visualized portions of left common femoral vein, profunda femoral vein, femoral vein, popliteal v ein, peroneal veins, posterior tibial veins, and greater saphenous vein outflow are patent. IMPRESSION: 1. No deep venous thrombosis within the bilateral lower extremities, as detailed above. Reviewed, dictated and finalized at location A. IMPRESSION: 1. No deep venous thrombosis within the bilateral lower extremities, as detail ed above.
--- NOTE | ~2024-11-20 | US_ITS ---
EXAMINATION: US venous doppler UE DATE: 11/28/2024 11:09 INDICATION: Fevers. Status post extubation. TECHNIQUE: Avery scale images with and without compression and Doppler images of the right and left up per extremity veins were obtained. COMPARISON: None. FINDINGS: The left internal jugular vein, subclavian vein, axillary vein, brachial veins, basilic vein, cephali c vein, radial vein, and ulnar vein are patent. There is deep venous thrombosis in the right subclavian, axillary and brachial veins. The remainder o f the right upper extremity veins are patent. IMPRESSION: 1. Deep venous thrombosis of the right subclavian, axillary and brachial veins. Dr. Kam Gongora discussed with the federal appellate law clerkWade Castaneda at 11/28/2024 11:23 CDT. Reviewed, dictated and finalized at location B.
--- NOTE | ~2024-11-20 | CT_ITS ---
EXAMINATION: CTA chest PE protocol DATE: 11/23/2024 5:53 CDT INDICATION: Shortness of breath with tachycardia TECHNIQUE: Computed tomographic angiography (CTA) of the chest was performed with 100 mL Omnipaque-35 0 intravenous contrast. The dose-length product was 902.62 mGy-cm. Maximum intensity projection 3D-re constructions of the aorta and other arteries were constructed by the technologist on a separate work station. Automated exposure control and iterative reconstruction technique were employed. COMPARISON: CT dated 02/01/2024. FINDINGS: There is free intraperitoneal air in the upper abdomen. Correlate for recent surgery. In th e absence of known surgery this is most likely secondary to bowel perforation. Clinically correlate. Small right pleural effusion. Dependent atelectasis. Study is technically limited by motion and contr ast bolus timing. No large central pulmonary embolism. No thoracic lymphadenopathy. No evidence for a ortic aneurysm or dissection. Fatty infiltration of the liver. There is ascites. IMPRESSION: 1. Free intraperitoneal air in the upper abdomen. Correlate for recent surgery. In the absence of kno wn surgery this is most likely secondary to bowel perforation. Clinically correlate. 2: No large central pulmonary embolism. Limited evaluation of the secondary and tertiary pulmonary a rteries. 3: Small right pleural effusion. Dependent atelectasis. 4: Ascites. Reviewed, dictated and finalized at location A. IMPRESSION: 1. Free intraperitoneal air in the upper abdomen. Correlate for recent surgery. In the absence of known surgery this is most likely secondary to bowel perfora tion. Clinically correlate. 2: No large central pulmonary embolism. Limited evaluation of the secondary an d tertiary pulmonary arteries. 3: Small right pleural effusion. Dependent atelectasis. 4: Ascites.
--- NOTE | ~2024-11-20 | XR_ITS ---
CHEST RADIOGRAPH CLINICAL HISTORY: Pneumonia, . COMPARISON: 11/29/2024, approximately 24 hours TECHNIQUE: Single portable view of the chest. FINDINGS Interval extubation. Nasogastric tube extends below the left hemidiaphragm. Right upper extremity PICC line identified with its tip projecting over the cavoatrial junction. The remainder of the cardiomediastinal silhouette is otherwise unremarkable. Blunting of the bilateral costophrenic sulci suggesting small bilateral pleural effusions. The remainder of the lungs are clear Asymmetric diffuse haziness within the bilateral lung coronado (right greater than left) secondary to t echnique rather than intrinsic pathology. IMPRESSION: Small bilateral pleural effusions. Nasogastric tube and PICC line in good position. Reviewed, dictated and finalized at location A.
--- NOTE | ~2024-11-20 | CT_ITS ---
History: Altered mental status and leukocytosis/fever PROCEDURE: CT head without contrast. COMPARISON: None TECHNIQUE: Axial imaging of the head performed from the skull base to the vertex without IV contrast. Sagittal a nd coronal reformations obtained. DLP: 681 mGy-cm FINDINGS: The ventricles are normal in size, shape and position. There is no mass, mass effect or midline shift. There is no abnormal extra-axial fluid collection or intracranial hemorrhage. Visualized paranasal sinuses are clear. The mastoid air cells are well aerated. No acute displaced fractures within the overlying cranium. Impression: No acute intracranial hemorrhage or suspicious mass effect. Reviewed, dictated and finalized at location A. Impression: No acute intracranial hemorrhage or suspicious mass effect.
--- NOTE | ~2024-11-20 | CT_ITS ---
EXAMINATION: CT abdomen pelvis wo con DATE: 11/23/2024 00:03 INDICATION: Abdomen pain. TECHNIQUE: Computed tomography (CT) of the abdomen and pelvis was performed without intravenous contr ast. The dose-length product was 1661.44 mGy-cm. Automated exposure control and iterative reconstruct ion technique were employed. COMPARISON: CT dated 11/20/2024. FINDINGS: Small right pleural effusion. Small left pleural effusion. Dependent atelectasis. There is ascites. Free air consistent with recent surgery. Laparotomy staple line present. There is drainage c atheter in the right abdomen. No discrete abscess identified. Calcified granulomas of the spleen. The liver, pancreas, adrenal glands and kidneys are within normal limits. There is high density material dependently in the gallbladder, likely vicarious excretion of contrast. There is gas in the bladder, likely from recent instrumentation. There is moderate lower thoracic and lumbar spondylosis. No acut e osseous abnormality. IMPRESSION: 1. Postoperative changes consistent with recent surgery, likely appendectomy. Clinically correlate. N o abscess identified. 2: Small pleural effusions with dependent atelectasis. Reviewed, dictated and finalized at location A. IMPRESSION: 1. Postoperative changes consistent with recent surgery, likely appendectomy. C linically correlate. No abscess identified. 2: Small pleural effusions with dependent atelectasis.
--- NOTE | ~2024-11-20 | XR_ITS ---
CHEST RADIOGRAPH CLINICAL HISTORY: intubated . COMPARISON: 11/26/2024 TECHNIQUE: Single portable view of the chest. FINDINGS right upper extremity PICC line identified with its tip projecting over the cavoatrial junct ion. Endotracheal tube is identified with its tip projecting approximately 4.7cm above the base of the car samson. Orogastric tube identified with its tip extending below the left hemidiaphragm, presumably within the stomach. The remainder of the cardiomediastinal silhouette is otherwise unremarkable. Redemonstration of bilateral pleural effusions, (with adjacent compressive consolidation is detected on CT examination). The remainder of the lungs are clear. IMPRESSION: Bilateral pleural effusions. Adjacent compressive consolidation as detected on CT examination. Supportive lines and tubes in good position. Reviewed, dictated and finalized at location A.
--- NOTE | ~2024-11-20 | XR_ITS ---
XR chest PICC line 11/23/2024 13:33 Indication: Check PICC line placement Procedure: AP portable chest Comparison: No prior studies for comparison. Findings: Borderline heart size. Small pleural effusions. Bibasilar airspace disease is present which may represent edema or pneumonia. No pneumothorax. PICC line tip in the SVC near the cavoatrial junc tion. Impression: 1: Bibasilar airspace disease may represent pneumonia or edema. Clinically correlate. 2: Small right pleural effusion. Reviewed, dictated and finalized at location A. Impression: 1: Bibasilar airspace disease may represent pneumonia or edema. Clinically mahendra elate. 2: Small right pleural effusion.
--- NOTE | ~2024-11-20 | XR_ITS ---
XR chest 1V portable 11/28/2024 05:45 Indication: Respiratory distress Procedure: AP portable chest Comparison: Comparison to multiple prior studies sequentially, with oldest reviewed study dated 11/24. Findings: Persistent bibasilar airspace disease. Possible small effusion. PICC line tip in the SVC. E ndotracheal tube tip 6 cm above the kristopher. NG tube passes into the stomach. Impression: 1: Persistent bibasilar airspace disease may represent pneumonia and/or atelectasis. Reviewed, dictated and finalized at location B. Impression: 1: Persistent bibasilar airspace disease may represent pneumonia and/or atelect asis.
--- NOTE | ~2024-11-20 | XR_ITS ---
EXAMINATION: XR knee RT min 4V DATE: 12/07/2024 15:59 INDICATION: Fracture TECHNIQUE: Anteroposterior, 2 oblique and crosstable lateral views of the right knee were obtained COMPARISON: 11/05/2024 FINDINGS: No significant change in 2-2.5 cm proximal distraction of a now subacute avulsion fracture involving the midportion of the proximal tip of the head of the fibula. There is likely secondary mild widening of the lateral compartment of the knee. Tiny marginal osteophytes all 3 components of the knee consi stent with at least mild tricompartmental osteoarthritis. Decrease in size of a now small right knee joint effusion. IMPRESSION: 1. No significant change in 2 to 2.5 cm proximal distraction of an avulsion fracture of a portion of the proximal tip of the fibula. 2. Mild widening of the lateral compartment joint space likely secondary to compromise of the stabili zing function of the fibular collateral ligament complex resulting from the avulsion fracture. Reviewed, dictated and finalized at location A. IMPRESSION: 1. No significant change in 2 to 2.5 cm proximal distraction of an avulsion fra cture of a portion of the proximal tip of the fibula. 2. Mild widening of the lateral compartment joint space likely secondary to com promise of the stabilizing function of the fibular collateral ligament complex resulting from the avulsion fracture.
--- NOTE | ~2024-11-20 | XR_ITS ---
XR chest 1V portable 11/25/2024 05:59 Indication: Intubation. Respiratory distress. Procedure: AP portable chest Comparison: Comparison to multiple prior studies sequentially, with oldest reviewed study dated 11/23. Findings: Endotracheal tube tip 4.5 cm above the kristopher. NG tube in the stomach. Unchanged pulmonary edema. Right pleural effusion. No pneumothorax. Bibasilar consolidation may reflect edema, atelectasi s and/or pneumonia. Impression: 1: Stable pulmonary edema with right pleural effusion. 2: Persistent unchanged right basilar consolidation may represent edema, atelectasis and/or pneumoni a. Reviewed, dictated and finalized at location A. Impression: 1: Stable pulmonary edema with right pleural effusion. 2: Persistent unchanged right basilar consolidation may represent edema, atele ctasis and/or pneumonia.
--- NOTE | ~2024-11-20 | XR_ITS ---
XR chest 1V portable 11/29/2024 06:09 Indication: Pneumonia. Respiratory distress. Procedure: AP portable chest Comparison: 11/27/2024 Findings: The endotracheal tube tip 6.4 cm above the kristopher. PICC line tip in the SVC. NG tube in the stomach. Stable bilateral airspace disease. Small pleural effusions. No pneumothorax. Impression: 1: Stable bilateral airspace disease which may represent pneumonia, edema and/or atelectasis. 2: Small pleural effusions. Reviewed, dictated and finalized at location B. Impression: 1: Stable bilateral airspace disease which may represent pneumonia, edema and/o r atelectasis. 2: Small pleural effusions.
--- NOTE | ~2024-11-20 | CT_ITS ---
EXAMINATION: CT abdomen pelvis wo con DATE: 11/23/2024 12:22 INDICATION: Shortness of breath TECHNIQUE: Computed tomography (CT) of the abdomen and pelvis was performed without intravenous contr ast. The dose-length product was 1435.79 mGy-cm. Automated exposure control and iterative reconstruct ion technique were employed. COMPARISON: None. FINDINGS: Progression of bibasilar consolidation which may represent atelectasis or pneumonia. There is ascites. There is free intraperitoneal air consistent with recent surgery. Free air has increased since prior examination. Drainage catheter present in the right mid abdomen. There is fluid and stran ding in the mesentery, although no discrete abscess identified. There is contrast in the bladder. Non dependent gas in the bladder lumen consistent with instrumentation. IMPRESSION: 1. Increasing free intraperitoneal air 11/22/2024, suspicious for bowel leak. Increasing fluid in the mesentery with ascites involving the perihepatic space. No discrete abscess identified. Consider mahendra elation with contrast-enhanced CT abdomen. 2: Increasing consolidation of the lower lobes which may represent atelectasis or pneumonia. 3: Developing small pleural effusions. Reviewed, dictated and finalized at location A. IMPRESSION: 1. Increasing free intraperitoneal air 11/22/2024, suspicious for bowel leak. In creasing fluid in the mesentery with ascites involving the perihepatic space. N o discrete abscess identified. Consider correlation with contrast-enhanced CT a bdomen. 2: Increasing consolidation of the lower lobes which may represent atelectasis or pneumonia. 3: Developing small pleural effusions.
--- NOTE | ~2024-11-20 | US_ITS ---
US venous doppler [facility] - 11/23/2024 9:56 CDT History: 54 years old Male with bilateral lower extremity pain and swelling. Real-time sonographic images of the bilateral lower extremity venous system were obtained. Color Dop pler sonography and spectral waveform analysis were performed. No prior studies for comparison. The bilateral sapheno-femoral junctions are patent. The bilateral common femoral, superficial femor al, popliteal and posterior tibial veins are compressible and without evidence of echogenic thrombus . Impression: No evidence of deep venous thrombosis Reviewed, dictated and finalized at location A. Impression: No evidence of deep venous thrombosis
--- OUTSIDE RECORDS SUMMARY | 2024-11-20 11:42 | XMS_ITS | Clinical Summary ---
Author Organization [facility] Address [address] [place] [id number] Care Team Providers Care Set Up Mechanic Name Role Phone Unavailable Primary Care Provider [...]
--- OUTSIDE RECORDS SUMMARY | 2024-11-20 12:16 | XMS_ITS | Clinical Summary ---
Author Organization [facility] Address [address] [place] [id number] Care Team Providers Care Director Of Respiratory Therapy Name Role Phone Unavailable Primary Care Provider [...] this topic Meningococcal Vaccine Aged Out No oliev zev eligible based on patient's age to complete this topic RSV Immunizations Under 20 Months Aged Out No longer eligible based on patient's age to complete this topic
[2024-11-20] MEDS: SODIUM CHLORIDE 0.9% IV 1,000 ML 999 ML IV CONT (12:29)
[2024-11-20 12:32] LABS: Hematocrit 46.1 % (42.0-52.0); Hemoglobin 15.9 g/dL (14.0-18.0); Immature Granulocyte Percent A 1.1 % (0-0.5); Lymphocytes Absolute Auto 1.15 K/mm3 (0.9-3.2); Mean Corpuscular HGB Conc 34.5 g/dl (32-36); Mean Corpuscular Hemoglobin 31.8 pg (26-34); Mean Corpuscular Volume 92.2 fl (80-100); Nucleated Red Blood Cells Absolute Auto 0.000 K/mm3 (0.0-0.012); Nucleated Red Blood Cells Perc 0.0 % (0.0-0.2); Platelet Count Result 252 k/mm3 (150-375); Red Blood Count 5.00 M/mm3 (4.6-6.20); White Blood Count 22.5 K/mm3 (4.5-10.0)
[2024-11-20 12:44] LABS: Alanine Aminotransferase 42 U/L (6-50); Albumin Level 4.6 g/dL (3.5-5.1); Alkaline Phosphatase 106 U/L (38-126); Anion Gap 13 mmol/L (4-12); Aspartate Amino Transferase 35 U/L (17-59); Bilirubin,Total 1.8 mg/dL (0.2-1.3); Blood Urea Nitrogen 19 mg/dL (9-20); Calcium 9.8 mg/dL (8.4-10.2); Carbon Dioxide 22 mmol/L (22-30); Chloride 103 mmol/L (98-107); Estimated CRCL calculation 84 ml/min; Estimated Glomerular Filt Rate > 60; Glucose 179 mg/dL (65-110); Lipase 35 U/L (23-300); Potassium 3.9 mmol/L (3.4-5.0); Sodium 138 mmol/L (137-145); Total Protein 8.6 g/dL (6.3-8.2)
[2024-11-20 12:48] LABS: Add Urine Microscopic? YES; Appearance Urine Turbid (Clear); Glucose Urine UA Trace mg/dL (Negative); Leukocyte Esterase Ur Trace LEU/UL (Negative); Need Manual Microscopic Reviewed; Nitrate Urine Negative (Negative); Non Pathogenic Casts >20; Specific Grav Ur 1.032 (1.001-1.035)
[2024-11-20 13:08] LABS: Influenza A QL RT-PCR Negative (Negative); Influenza B QL RT-PCR Negative (Negative); RSV RNA, RT-PCR Negative (Negative); SARS-CoV-2 RNA PCR Negative (Negative)
--- NOTE | 2024-11-20 13:31 | ED_ITS ---
HPI - Abdominal Pain General Chief Complaint: Fever Stated Complaint: FEVER ABD PAIN Time Seen by Provider: 11/20/24 11:53 Source: patient Mode of arrival: ambulatory Limitations: no limitations History of Present Illness HPI narrative: Patient presents with report of diarrhea and abdominal pain. He states that his abdominal pain started in the upper area but is now low abdominal pain. He has had several episodes of nonbloody diarrhea. In general he has had decreased p.o. intake. He sustained a right fibular fracture 2 weeks ago and is currently on [place] but without a prescribed bowel regimen. He did take 1 laxative on Thursday. Last oral intake was last night. He is not on anticoagulation. He denies any chest pain or shortness of breath. He states this has never happened before. He had a colonoscopy last year which was reportedly normal. He denies any penile discharge, dysuria or hematuria. He states that he has intermittently been having fevers with a temperature of a 102? on Thursday and 103.6 this morning. He took 4 ibuprofen prior to arrival and has occasionally been using Tylenol for his fevers in addition to the hydrocodone which contains acetaminophen. He states the diarrhea caused him to be incontinent this morning which was embarrassing and he had to clean up. No previous abdominal surgeries. Related Data Allergies Allergy/AdvReac Type Severity Reaction Status Date / Time No Known Allergies Allergy Unknown Verified 11/20/24 12:08 [facility] Past Medical History Medical History (Updated 11/20/24 @ 15:48 by Rojelio Cortez MD) Umbilical hernia Closed right fibular fracture November 2024 Surgical History Surgical History H/O colonoscopy October 2023, Dr Ronquillo Family History Family History Other Diabetes mellitus Social History Social History Smoking packs per day: 1 Smoking cigarettes per day: 20.0 Years smoked: 16 Smoking pack-years: 16.00 Smoking status: Former smoker Tobacco type: cigarettes Second hand tobacco smoke exposure: No Smoking end date: 05/04/05 Alcohol intake: current Alcohol use details: social Substance use: never Substance use type: does not use Do You Feel Safe in your Home?: Yes Lack of Transportation: No Lack of Food: Never True Current Housing: I Have Housing Concerned About Future Housing: No Difficulty Paying Gas/Electric Bills: No Difficulty Paying for Meds: No Currently Unemployed: No Education: Don't Know Difficulty w/ Childcare or Family Care: No Living arrangements: with family Occupation/Education: occupation Gender identity (if verbalized by the patient): Male Sexual Orientation (if Verbalized by the Patient): Straight or Heterosexual Spiritual care concerns: No Exam 2 Narrative: GENERAL: Well-appearing, well-nourished, and in no acute distress. HEAD: Normocephalic, atraumatic. EYES: Non injected, non icteric ENT: Nares clear, no rhinorrhea or epistaxis. Gross auditory acuity intact. NECK: Supple. No meningismus. CHEST: Speaking in full sentences. No respiratory distress. HEART: Regular rate at the time of my exam . ABDOMEN: Obese. Soft, but distended. No rigidity or guarding. Generalized TTP throughout. Reducible umbilical hernia but otherwise without overlying skin changes. EXTREMITIES: R leg in immobilization SKIN: Warm, dry, no rash. NEURO: No focal deficits. Alert and oriented. Answering questions. Following commands. Normal speech without aphasia or dysarthria. PSYCH: Normal mood and affect. Course Vital Signs Vital signs: Vital Signs Temperature 98.3 F 11/20/24 11:53 Pulse Rate 125 H 11/20/24 11:53 Respiratory Rate 18 11/20/24 11:53 Blood Pressure 112/74 11/20/24 11:53 Pulse Oximetry 97 11/20/24 11:53 Oxygen Delivery Room Air 11/20/24 11:53 Temperature 100.1 F H 11/20/24 15:53 Pulse Rate 102 H 11/20/24 15:53 Respiratory Rate 116 H 11/20/24 15:53 Blood Pressure 108/73 11/20/24 15:53 Pulse Oximetry 97 11/20/24 15:53 Oxygen Delivery Room Air 11/20/24 11:53 MDM - Abdominal Pain MDM Narrative Medical decision making narrative: Patient presents with abdominal pain, diarrhea, and fever with a maximum temp of 103. Recent fibula fracture for which he is on [place] w/o bowel regimen though took a laxative Thursday. Has been using APAP intermittently and 4 ibuprofen [employer]. The differential for acute ( less than 14d) diarrhea includes infectious etiologies (viral, preformed toxins, toxins formed after colonization, invasive bacteria, and parasites), medications, inflammatory causes (IBD, radiation enteritis, ischemic colitis, diverticulitis), malabsorption, secretory causes, or motility disorders. In the emergency department he is afebrile currently but with a heart rate of 125. 1 L IV fluids ordered. With this, his HR is 92 on my bedside assessment. He has a marked leukocytosis. CT abdomen and pelvis are ordered in addition to Dilaudid He has hyperglycemia with a slight anion gap but no acidosis. Abnormal UA. Lactic acid normal. Patient is now documented to have a fever. Acetaminophen ordered and patient will be allowed a sip of water to take this. CRP elevated. CT interpreted as severe appendicitis with possible appendiceal rupture. Patient is notified. Will contact on-call general surgeon. He has remained NPO. Zosyn ordered. 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 Patient taken to the OR. Differential Diagnosis Differential diagnosis: Likely abdominal pain, acute appendicitis, constipation, diverticulitis, pancreatitis and other (intra-abdominal abscess) Lab Data Attestation: I reviewed the patient's lab results. 11/20/24 12:20 11/20/24 12:20 Labs: Lab Results 11/20/24 11/20/24 Range/Units 12:20 12:24 WBC 22.5 H (4.5-10.0) K/mm3 RBC 5.00 (4.6-6.20) M/mm3 Hgb 15.9 (14.0-18.0) g/dL Hct 46.1 (42.0-52.0) % MCV 92.2 (80-100) fl MCH 31.8 (26-34) pg MCHC 34.5 (32-36) g/dl RDW 11.9 (11.5-14.5) % Plt Count 252 (150-375) k/mm3 MPV 9.2 (7.4-10.4) fl Immature Gran % (Auto) 1.1 H (0-0.5) % Neut % (Auto) 86.0 H (45.5-73.1) % Lymph % (Auto) 5.1 L (18.3-44.2) % [place] % (Auto) 7.6 (2.6-8.5) % Eos % (Auto) 0.0 (0-4.4) % Baso % (Auto) 0.2 (0.2-1.2) % Lymph # (Auto) 1.15 (0.9-3.2) K/mm3 [place] # (Auto) 1.7 H (0.1-0.6) K/mm3 Eos # (Auto) 0.0 (0-0.3) K/mm3 Baso # (Auto) 0.0 (0.0-0.1) K/mm3 Abs Immat Gran (auto) 0.24 H (0.00-0.031) K/mm3 Absolute Neuts (auto) 19.3 H (1.3-6.7) K/mm3 Absolute Nucleated RBC 0.000 (0.0-0.012) K/mm3 Nucleated RBC % 0.0 (0.0-0.2) % Sodium 138 (137-145) mmol/L Potassium 3.9 (3.4-5.0) mmol/L Chloride 103 (98-107) mmol/L Carbon Dioxide 22 (22-30) mmol/L Anion Gap 13 H (4-12) mmol/L BUN 19 (9-20) mg/dL Creatinine 1.09 (0.7-1.3) mg/dL Estim Creat Clear Calc 84 ml/min Estimated GFR > 60 (59 - ) Glucose 179 H (65-110) mg/dL Lactic Acid 1.6 (0.7-2.0) mmol/L Calcium 9.8 (8.4-10.2) mg/dL Total Bilirubin 1.8 H (0.2-1.3) mg/dL AST 35 (17-59) U/L ALT 42 (6-50) U/L Alkaline Phosphatase 106 (38-126) U/L C-Reactive Protein > 9.0 H (<1.0) mg/dL Total Protein 8.6 H (6.3-8.2) g/dL Albumin 4.6 (3.5-5.1) g/dL Lipase 35 (23-300) U/L Urine Color Dark yellow (Yellow) Urine Appearance Turbid H (Clear) Urine pH 5.5 (5.0-9.0) Ur Specific [place] 1.032 (1.001-1.035) Urine Protein 3+ H (Negative) mg/dL Urine Glucose (UA) Trace H (Negative) mg/dL Urine Ketones Trace H (Negative) mg/dL Ur Blood (Man) Negative (Negative) Urine Nitrate Negative (Negative) Urine Bilirubin 1+ H (Negative) Urine Urobilinogen 1.0 (<2.0) mg/dL Add Ur Microanalysis Reviewed Leukocyte Esterase Rfl Trace H (Negative) RAQUEL/UL Urine RBC 3-5 H (0-2) /hpf Urine WBC 0-5 (0-3) /hpf Ur Squamous Epith Cells Many H (Few) /hpf Urine Bacteria None seen /hpf Urine Casts >20 Influenza A (RT-PCR) Negative (Negative) Influenza B (RT-PCR) Negative (Negative) RSV (RT-PCR) Negative (Negative) SARS-CoV-2 RNA (RT-PCR) Negative (Negative) Imaging Data Attestation: I personally reviewed and interpreted this imaging study as follows: My impression: Inflammation/fat stranding in RLQ, concerning for sequelae of appendicitis on my independent interpretation Radiologist's impression: ITS Impressions Abdomen/Pelvis CT 11/20/24 14:32 IMPRESSION: Severe appendicitis, with findings concerning for wall breakdown/necrosis and appendiceal rupture. No periappendiceal abscess. Discharge Plan Discharge Clinical Impression: Abnormal urinalysis, Acute diarrhea, Leukocytosis, Abdominal pain, Fever, CRP elevated Appendicitis Qualifiers: Appendicitis type: acute appendicitis Acute appendicitis type: with generalized peritonitis Appendicitis gangrene presence: with gangrene Appendicitis perforation presence: with perforation Appendicitis abscess presence: without abscess Qualified Code(s): K35.201 - Acute appendicitis with generalized peritonitis, with perforation, without abscess Patient Disposition: Still a Patient Condition: Stable
[2024-11-20] MEDS: HYDROmorphone HCL INJ (*CRX) 2 MG/ML VIAL 1 MG IV PUSH (14:14)
[2024-11-20 14:37] LABS: CRP > 9.0 mg/dL (<1.0)
--- NOTE | 2024-11-20 15:18 | P.PNAN_ITS ---
Anes - Eval Pre Procedure Procedure: Laparoscopic appendectomy Date/Time: 11/20/24 15:18 Surgeon: Diego Preop Diagnosis: Ruptured appendicitis Pre Op Diagnosis: FEVER ABD PAIN Patient Data Age: 54 Gender: M Height: 1.78 m Weight: 109 kg Last Vital Signs Temp 38.1 C H 11/20/24 14:16 Pulse 93 11/20/24 14:16 Resp 20 11/20/24 14:16 BP 127/76 11/20/24 14:16 Pulse Ox 98 11/20/24 14:16 O2 Del Method Room Air 11/20/24 11:53 Allergies Allergy/AdvReac Type Severity Reaction Status Date / Time No Known Allergies Allergy Unknown Verified 11/20/24 12:08 Home Medications ?Medication ?Instructions ?Recorded ?Confirmed ?Type tadalafil 5 mg tablet See Rx Instructions .Route 10/31/24 11/11/24 Rx .COMPLEX #90 tabs hydrocodone 5 mg-acetaminophen 325 1 tablet PO Q4H #30 tabs 11/11/24 11/11/24 Rx mg tablet Laboratory Tests 11/20/24 11/20/24 12:20 12:24 WBC 22.5 H K/mm3 (4.5-10.0) RBC 5.00 M/mm3 (4.6-6.20) Hgb 15.9 g/dL (14.0-18.0) Hct 46.1 % (42.0-52.0) MCV 92.2 fl (80-100) MCH 31.8 pg (26-34) MCHC 34.5 g/dl (32-36) RDW 11.9 % (11.5-14.5) Plt Count 252 k/mm3 (150-375) MPV 9.2 fl (7.4-10.4) Immature Gran % (Auto) 1.1 H % (0-0.5) Neut % (Auto) 86.0 H % (45.5-73.1) Lymph % (Auto) 5.1 L % (18.3-44.2) [place] % (Auto) 7.6 % (2.6-8.5) Eos % (Auto) 0.0 % (0-4.4) Baso % (Auto) 0.2 % (0.2-1.2) Lymph # (Auto) 1.15 K/mm3 (0.9-3.2) [place] # (Auto) 1.7 H K/mm3 (0.1-0.6) Eos # (Auto) 0.0 K/mm3 (0-0.3) Baso # (Auto) 0.0 K/mm3 (0.0-0.1) Abs Immat Gran (auto) 0.24 H K/mm3 (0.00-0.031) Absolute Neuts (auto) 19.3 H K/mm3 (1.3-6.7) Absolute Nucleated RBC 0.000 K/mm3 (0.0-0.012) Nucleated RBC % 0.0 % (0.0-0.2) Sodium 138 mmol/L (137-145) Potassium 3.9 mmol/L (3.4-5.0) Chloride 103 mmol/L (98-107) Carbon Dioxide 22 mmol/L (22-30) Anion Gap 13 H mmol/L (4-12) BUN 19 mg/dL (9-20) Creatinine 1.09 mg/dL (0.7-1.3) Estim Creat Clear Calc 84 ml/min Estimated GFR > 60 (59 - ) Glucose 179 H mg/dL (65-110) Lactic Acid 1.6 mmol/L (0.7-2.0) Calcium 9.8 mg/dL (8.4-10.2) Total Bilirubin 1.8 H mg/dL (0.2-1.3) AST 35 U/L (17-59) ALT 42 U/L (6-50) Alkaline Phosphatase 106 U/L (38-126) C-Reactive Protein > 9.0 H mg/dL (<1.0) Total Protein 8.6 H g/dL (6.3-8.2) Albumin 4.6 g/dL (3.5-5.1) Lipase 35 U/L (23-300) Urine Color Dark yellow (Yellow) Urine Appearance Turbid H (Clear) Urine pH 5.5 (5.0-9.0) Ur Specific [place] 1.032 (1.001-1.035) Urine Protein 3+ H mg/dL (Negative) Urine Glucose (UA) Trace H mg/dL (Negative) Urine Ketones Trace H mg/dL (Negative) Ur Blood (Man) Negative (Negative) Urine Nitrate Negative (Negative) Urine Bilirubin 1+ H (Negative) Urine Urobilinogen 1.0 mg/dL (<2.0) Add Ur Microanalysis Reviewed Leukocyte Esterase Rfl Trace H RAQUEL/UL (Negative) Urine RBC 3-5 H /hpf (0-2) Urine WBC 0-5 /hpf (0-3) Ur Squamous Epith Cells Many H /hpf (Few) Urine Bacteria None seen /hpf Urine Casts >20 Influenza A (RT-PCR) Negative (Negative) Influenza B (RT-PCR) Negative (Negative) RSV (RT-PCR) Negative (Negative) SARS-CoV-2 RNA (RT-PCR) Negative (Negative) Patient hx anesthesia problems: none Family hx anesthesia problems: none Results Review: All pre-operative results and documents have been reviewed as part of the pre- operative evaluation. [facility] Past Medical History Medical History Umbilical hernia Closed right fibular fracture November 2024 Surgical History Surgical History H/O colonoscopy October 2023, Dr Ronquillo Family History Family History Other Diabetes mellitus Social History Social History Smoking packs per day: 1 Smoking cigarettes per day: 20.0 Years smoked: 16 Smoking pack-years: 16.00 Smoking status: Former smoker Tobacco type: cigarettes Second hand tobacco smoke exposure: No Smoking end date: 05/04/05 Alcohol intake: current Alcohol use details: social Substance use: never Substance use type: does not use Do You Feel Safe in your Home?: Yes Lack of Transportation: No Lack of Food: Never True Current Housing: I Have Housing Concerned About Future Housing: No Difficulty Paying Gas/Electric Bills: No Difficulty Paying for Meds: No Currently Unemployed: No Education: Don't Know Difficulty w/ Childcare or Family Care: No Living arrangements: with family Occupation/Education: occupation Gender identity (if verbalized by the patient): Male Sexual Orientation (if Verbalized by the Patient): Straight or Heterosexual Spiritual care concerns: No Exam Day of Procedure 11/20/24 15:18 Patient weight: normal Heart: regular rate and rhythm Lungs: clear to auscultation and normal air movement Airway: Mallampati scale class II Neurological: alert and oriented
--- NOTE | 2024-11-20 15:22 | PM.IMHP ---
H&P: HPI History of Present Illness Date/Time: 11/20/24 15:22 Chief Complaint: abdominal pain Narrative: Patient broke his proximal fibula by hyperextending his knee on 11/05/24. He noticed diarrhea and abdominal last week and began running fevers 3 days ago. He came to the ER today and had fever of 38.1. His WBC was 22.5K. His abdominal exam showed diffuse tenderness. He had a CT scan abd/pelvis which showed a 2.4cm dilated appendix with mid-appendiceal appendicolith. Wall of appendix appears to be discontiguous with small pocket of air. He has been started on IV Zosyn antibiotics. He is admitted now for ruptured appendicitis and laparoscopic appendectomy. Review of Systems Review of Systems: All systems reviewed & are unremarkable except as noted in HPI and below (HPI) [facility] Past Medical History Medical History (Updated 11/20/24 @ 15:48 by Rojelio Cortez MD) Umbilical hernia Closed right fibular fracture November 2024 Surgical History Surgical History H/O colonoscopy October 2023, Dr Ronquillo Family History Family History Other Diabetes mellitus Social History Social History Smoking packs per day: 1 Smoking cigarettes per day: 20.0 Years smoked: 16 Smoking pack-years: 16.00 Smoking status: Former smoker Tobacco type: cigarettes Second hand tobacco smoke exposure: No Smoking end date: 05/04/05 Alcohol intake: current Alcohol use details: social Substance use: never Substance use type: does not use Do You Feel Safe in your Home?: Yes Lack of Transportation: No Lack of Food: Never True Current Housing: I Have Housing Concerned About Future Housing: No Difficulty Paying Gas/Electric Bills: No Difficulty Paying for Meds: No Currently Unemployed: No Education: Don't Know Difficulty w/ Childcare or Family Care: No Living arrangements: with family Occupation/Education: occupation Gender identity (if verbalized by the patient): Male Sexual Orientation (if Verbalized by the Patient): Straight or Heterosexual Spiritual care concerns: No Meds Home Medications and Allergies Home Medications ?Medication ?Instructions ?Recorded ?Confirmed ?Type tadalafil 5 mg tablet See Rx Instructions .Route 10/31/24 11/11/24 Rx .COMPLEX #90 tabs hydrocodone 5 mg-acetaminophen 325 1 tablet PO Q4H #30 tabs 11/11/24 11/11/24 Rx mg tablet Allergies Allergy/AdvReac Type Severity Reaction Status Date / Time No Known Allergies Allergy Unknown Verified 11/20/24 12:08 Vital Signs Vital Signs - 24 hr 11/20/24 11:53 11/20/24 14:16 Temperature 36.8 C 38.1 C H Pulse Rate 125 H 93 Respiratory Rate 18 20 Blood Pressure 112/74 127/76 Pulse Oximetry 97 98 Oxygen Delivery Room Air Exam Const: General: cooperative, comfortable, no acute distress, alert, awake, ill appearing and overweight Orientation/consciousness: patient oriented x3 and No confusion HENMT: Head: normocephalic and atraumatic Mouth: Yes Normal oral and palatal mucosa present Eyes: Conjunctivae: conjunctivae normal Pupils: Equal, round and reactive pupils present EOM: EOMs intact bilaterally Neck: Neck: normal visual inspection, no lymphadenopathy and nontender Resp: Effort & Inspection: normal respiratory effort Auscultation: clear to auscultation bilaterally Cardio: Rate: regular rate Rhythm: regular rhythm Heart sounds: no gallops, no murmurs and no rubs GI: Inspection: normal to inspection, no abdominal wall ecchymosis, non-distended, obesity, no scars and visible herniation (umbilical) GI Palp: Yes Soft to palpation, Yes Tenderness to palpation present (GI), Yes Guarding due to palpation present (GI), No Hepatomegaly present, No Splenomegaly present and Yes Hernia present umbilical < 3 cm (reducible) Skin: Lesions: no lesions Rashes: no rashes Neuro: General: no focal motor deficits and CN's II-XI intact bilaterally Cranial nerves: Yes Equal, round and reactive pupils present, Yes Bilaterally intact EOM present, Yes facial symmetry and Yes Midline tongue present Speech: normal speech Motor exam (neuro): 5/5 motor strength present throughout and Motor abnormalities not present Extrem: General: no clubbing, cyanosis or edema and edema Right lower extremity: knee (has knee brace) Psych: Affect: normal affect Thought process: Normal thought process present Insight: Good insight present (Psych) H&P: Results Labs Labs: Short CBC 11/20/24 Range/Units 12:20 WBC 22.5 H (4.5-10.0) K/mm3 Hgb 15.9 (14.0-18.0) g/dL Hct 46.1 (42.0-52.0) % Plt Count 252 (150-375) k/mm3 BMP 11/20/24 12:20 Sodium 138 Potassium 3.9 Chloride 103 Carbon Dioxide 22 BUN 19 Creatinine 1.09 Glucose 179 H Calcium 9.8 Liver Function 11/20/24 Range/Units 12:20 Total Bilirubin 1.8 H (0.2-1.3) mg/dL AST 35 (17-59) U/L ALT 42 (6-50) U/L Alkaline Phosphatase 106 (38-126) U/L Albumin 4.6 (3.5-5.1) g/dL Urine 11/20/24 Range/Units 12:24 Urine Color Dark yellow (Yellow) Urine Appearance Turbid H (Clear) Urine pH 5.5 (5.0-9.0) Ur Specific [place] 1.032 (1.001-1.035) Urine Protein 3+ H (Negative) mg/dL Urine Glucose (UA) Trace H (Negative) mg/dL Imaging CT scan - abdomen: Attestation: I personally reviewed and interpreted this imaging study as follows: (CT scan abd/pelvis) My impression: appendicitis Radiologist's impression: IMPRESSION: Severe appendicitis, with findings concerning for wall breakdown/necrosis and appendiceal rupture. No periappendiceal abscess. Assessment and Plan Assessment and plan (1) Appendicitis: Qualifiers: Appendicitis type: acute appendicitis Acute appendicitis type: with generalized peritonitis Appendicitis gangrene presence: with gangrene Appendicitis perforation presence: with perforation Appendicitis abscess presence: without abscess Qualified Code(s): K35.201 - Acute appendicitis with generalized peritonitis, with perforation, without abscess Code(s): K37 - Unspecified appendicitis Status: Acute Assessment and Plan: Patient likely has ruptured appendicitis and peritonitis. Discussed findings and impression. Recommend proceeding with laparoscopic appendectomy. Procedure, risks, benefits, alternatives discussed. All questions answered. He agrees to go ahead. (2) Closed right fibular fracture: Code(s): S82.401A - Unspecified fracture of shaft of right fibula, initial encounter for closed fracture Status: Acute Assessment and Plan: under orthopedic care. Uses knee brace.
[2024-11-20] MEDS: ACETAMINOPHEN 500 MG TABLET 1000 MG PO (15:46)
[2024-11-20] MEDS: PIPERACILLIN/TAZOBACTAM SOD 4.5 GM in SODIUM CHLORIDE 0.9% IV 100 ML 200 ML IVPB (15:47)
--- NOTE | 2024-11-20 15:52 | WPDHPUPDATE1 ---
History and Physical Update Update Date/Time: 11/20/24 15:52 History and Physical has been reviewed, including an updated exam of the patient. There are NO changes in the patient's condition. Risks, benefits, and alternatives have been discussed and questions answered. Patient agrees to proceed with procedure.
--- OUTSIDE RECORDS SUMMARY | 2024-11-20 16:20 | XMS_ITS | Clinical Summary ---
Author Organization [facility] Address [address] [place] [id number] Care Team Providers Care Business Operations Coordinator Name Role Phone Unavailable Primary Care Provider [...]
--- NOTE | 2024-11-20 16:38 | P.PNAN_ITS ---
Anes - Eval Final PreProcedure Day of Procedure 11/20/24 16:38 Patient weight: obese Heart: regular rate and rhythm Lungs: clear to auscultation Airway: Mallampati scale class II Neurological: alert and oriented Last oral intake: >/= 8 hours ASA classification: II Emergent: yes Anesthetic plan: proceed Anesthesia type and monitoring: general ETT and standard monitoring Results Review: All pre-operative results and documents have been reviewed as part of the pre- operative evaluation. Informed Consent: The patient's anesthetic plan and its attendant risks and benefits were discussed with the patient/family/POA. Questions were solicited and answers provided to the satisfaction of the patient/family/POA.
--- NOTE | 2024-11-20 18:56 | S_PTH ---
PATIENT: Chris Calvillo LOC: ANHIMU #:[id number] AGE/SX: 54/M ROOM: 201 RE11/20/[address]: Opal Wilkerson PA-C : 1970 BED: 01 DIS: 12/09/2024 SPEC #: [id number] RECD: 11/21/24 08:07 STATUS: KOBE REQ #: [id number] TONI: 11/20/24 18:[address]: Rojelio Cortez DEPT: [facility] Surgical RECD BY: Page Kent ENTERED: 11/21/24 08:07 SP TYPE: Surgical OTHR DR: MD Lui Sosa PA-C Tissues: A - Appendix Procedures: Hematoxylin and Eosin Stain Gross and Microscopic Level 3 Comments: @ Originally on account #[id number] Req #[id number]
--- NOTE | 2024-11-20 20:29 | OP_ITS ---
This report was moved to the correct visit on 11/21/2024. The original report was signed by Rojelio Cortez MD on 11/20/242028. Procedure Note - Detailed Date of Procedure 11/20/24 Pre-op Diagnosis Ruptured appendicitis with generalized peritonitis Post-op Diagnosis Other (Ruptured appendicitis with generalized peritonitis and with abdominal abscess) Procedure Performed Attempted laparoscopic appendectomy, open appendectomy Surgeon Rojelio Cortez MD Fund Development Manager Davon Haas, [facility] Anesthesia General Indications Patient had been experiencing abdominal pain diarrhea and fevers for at least 3 days. When he woke up again this morning with fever and abdominal pain he decided to come to the emergency room. Evaluation there showed [place] [phone] and diffuse abdominal tenderness. CT showed evidence of ruptured appendicitis with appendicoliths. He is taken to surgery now for laparoscopic appendectomy. Findings This was easily 1 of the top 5% difficult appendectomy as I have ever performed. The appendix was extremely dilated and was retroperitoneal. There was an abscess as well. The appendix was extremely large as noted on the CT scan and was at least 2.5 cm in diameter. The retroperitoneal position of the ruptured appendix caused severe adhesion of the appendix, distal ileum and ileal mesentery to be stuck in the retroperitoneum. Mobilization of these structures laparoscopically resulted in oozing of blood. The ascending colon was attempted to be mobilized laparoscopically and probably the proximal 3rd of it was mobilized but this still did not allow adequate mobilization of the cecum and ileo colic junction to be able to define the anatomy adequately. The appendix was eventually mobilized so that it was anterior but the nearby ileal mesentery, ileum, proximal ascending colon had been subject to traction and blunt dissection with enough bleeding to make visualization difficult. Additionally was still not able to fully mobilize the distal ileum and cecum. We then converted the surgery to open with a midline incision. Prior to this decision, I and placed 7 different trocars trying to complete the surgery laparoscopically. Once the abdomen was opened, the dense adhesions of the appendix, distal ileum and a ANA LUISA cecum to the retroperitoneum and the severe inflammation that had passed into the ileal mesentery and retroperitoneum were better appreciated. The colon and small intestine carefully evaluated for any sign of perforation or significant injury. There was none. The surgery lasted nearly 3 hours which is 4 or 5 times longer than this operation would take even in the case of a difficult ruptured appendix. Estimated blood loss was 200 cc. There was no hemodynamic instability throughout the surgery. A right lower quadrant 19 Albanian Ty drain was placed in the area of the abscess. Description of Procedure The patient had a history of closed right fibular fracture about 2 weeks ago. He has been using a knee brace at home. He is at high risk for DVT and, prior to taking the patient back to surgery, 40 mg of Lovenox were administered subcutaneous in the preoperative area. Patient was taken to surgery and induced into general anesthesia. The abdomen is prepped draped. Trocars were initially placed in the usual fashion using applied Medical optical trocars and starting in the left subcostal position. Remaining other 2 trocars were placed under direct visualization. Patient was placed in Trendelenburg with the right-side elevated. We were able to find the proximal ascending colon and the distal ileum but they were all connected posteriorly and visualization there was inadequate. For that reason, another 5 mm port was placed in the right mid abdomen. We moved our camera to this location. We switched to a 30 degree camera. This did help and I was able to free some adhesions to the proximal ascending colon the degree of adhesions to the appendix and inflammatory process or so so severe that the usual amount of traction needed was completely inadequate. I then placed another 5 mm trocar in the upper mid abdomen to assist with retraction. Suction and irrigation was carried out. Some blunt dissection was was carried out. Still, the appendix was not but able to be seen. Eventually, I was able to see a tubular structure that appeared to be the origin of the appendix. Still, I could not see well enough to mobilize the appendix. I then placed a 2nd 10 11 port on the patient's right lower quadrant and moved there. I placed a 5 mm port on the right side as well. This did help with mobilization and I was able to bluntly free the distal appendix from the retroperitoneum. At this point there was obviously purulent fluid and abscess in the retroperitoneum. Adhesions to mobilize this were very dense. I then repositioned our initial 10 11 trocar and went back to the patient's left side. We continued dissection MR now able to see and extremely dilated and inflamed area of appendix as well as the origin in the appendix from the cecum. There was some mesenteric vessel bleeding which we were able to stop with gentle pressure. I then again tried to mobilize the appendix so that the entire appendix was free and able to be seen. This could not be accomplished. Additionally I was concerned for an occult injury to either small intestine or cecum. After or over 90 minutes of dissection, we converted the surgery to open. Once the instruments were counted and available, midline incision was made starting above the umbilicus and proceeding below the umbilicus. Cautery was used to achieve hemostasis. Midline fascia was divided and then the peritoneum was opened to the length of the wound. The initial wound that I made was too small to adequately visualize the lateral adhesions to the ascending colon as well as the retroperitoneum attachments of the inflammatory process. The wound was enlarged and we then exposed the lateral attachments to the ascending colon and mobilized the ascending colon further. Still there were dense attachments to the retroperitoneum and once these were exposed, I was able to free these and mobilize the mesentery to the distal small bowel so that the appendix and the accompanying structures were in the anterior abdomen and easily reviewed. The appendix was diminutive over its proximal inch but then it was discontiguous with the ruptured area. The distal appendix was extremely dilated as I mentioned before. I continued to mobilize and inflammatory attachments to the appendix. I then ligated the appendix at its base with a Vicryl endoloop. The appendix was amputated just above the ligature and the mucosa of the appendiceal stump was cauterized. The appendix was passed off to pathology in formalin. We then looked at the mesentery associated with the retroperitoneal inflammatory process. Cautery was used to achieve good hemostasis. Suction and gentle dissection was used to break up the loculations of the abscess. I then thoroughly irrigated the right lower quadrant and pelvis. A 19 Albanian Ty drain was brought out the right lower quadrant and positioned in the right retroperitoneum where the abscess had been and directly under where the cecum would lie. The bowel was placed back in its anatomic position. The drain was sutured to the skin with 2-0 silk. A nasogastric tube was placed and positioned appropriately. The midline fascia was then closed with bidirectional right running 1. PDS suture. The subcu was closed with interrupted 3-0 Vicryl suture. The skin to the midline incision was closed with wide fara. All the trocar sites were closed with subcuticular 4-0 Monocryl suture. The trocar sites were dressed with Exofin surgical adhesive. Is Xeroform gauze, fluffs, and Medipore tape were used to dress the abdominal wound. A drain sponge was placed and taped in securely. The drain was placed to bulb suction. Patient was then awakened and taken to recovery in good condition. Sponge and needle counts were correct x2. Estimated Blood Loss -200 Drains Yes (Nineteen Albanian Ty drain right lower quadrant, nasogastric tube, Mancini ) Packing No Pathology Yes (Ruptured appendix with abscess) Complications None Condition Stable Disposition PACU [facility] Billing Surgery - Charge Forward: Surgery Billing (Attempted laparoscopic appendectomy, open appendectomy. Add 22 modifier for increased difficulty) Please be advised this is a medical document. It is intended for avgb-ud-ohgu communication. It is written in medical language and may contain unfamiliar abbreviations or verbiage. Medical documents are intended to carry relevant information, facts as evident, and the clinical opinion of the practitioner at the time of the encounter. This report may have been done utilizing a voice recognition system. Attempts have been made to correct errors. However, there may be uncorrected grammatical, spelling, and recognition errors present. The file time of this note does not necessarily represent the time the patient was seen. Report Initialized date/time: Rojelio Cortez MD 11/20/242028 Electronically signed by: Rojelio Cortez MD 11/20/242028
--- NOTE | 2024-11-20 21:58 | ADMGEN ---
This patient, Chris Calvillo, was admitted to 2 Medical Room 261-01. Patient/family oriented to hospital policies and general routines including ID bracelet, bed and alarms, visiting hours, pain management, procedures, bathroom and other care routines, personal items, smoking policy, room service/diet, and visiting hours. Information on how to activate the Rapid Response Team has been discussed. Patient/Family are encouraged to report perceived risks to care and to ask questions if they do not understand what they are told or what they should do.
[2024-11-20 22:08] LABS: INR 1.2; Prothrombin Time 15.1 Seconds (11.1-14.7)
[2024-11-20 22:09] LABS: Partial Thromboplastin Time 38.9 Seconds (22.3-36.8)
[2024-11-20] MEDS: FAMOTIDINE 20 MG/2 ML VIAL IV PUSH (22:51)
[2024-11-20] MEDS: LACTATED RINGERS 1,000 ML 150 ML IV CONT (22:51)
[2024-11-20] MEDS: IBUPROFEN IV 800 MG/200 ML 800 MG/200 ML BAG 400 MG IVPB (23:08)
[2024-11-20] MEDS: PIPERACILLIN/TAZOBACTAM SOD 3.375 GM in SODIUM CHLORIDE 0.9% IV 50 ML 100 ML IVPB (23:50)
[2024-11-21 03:34] VITALS: BP 112/65; PULSE 72; RESP 18; TEMP 36.4; O2SAT 98
[2024-11-21] MEDS: PIPERACILLIN/TAZOBACTAM SOD 3.375 GM in SODIUM CHLORIDE 0.9% IV 50 ML 100 ML IVPB ×3 (05:52→17:20)
--- OUTSIDE RECORDS SUMMARY | 2024-11-21 08:22 | XMS_ITS | Clinical Summary ---
Author Organization [facility] Address [address] [place] [id number] Care Team Providers Care Shooting Gallery Operator Name Role Phone Unavailable Primary Care [...]
[2024-11-21] MEDS: FAMOTIDINE 20 MG/2 ML VIAL IV PUSH ×2 (08:33→21:58)
[2024-11-21] MEDS: ENOXAPARIN 40 MG/0.4 ML SYRINGE SUB-Q (08:33)
[2024-11-21] MEDS: LACTATED RINGERS 1,000 ML 150 ML IV CONT ×2 (08:33→17:21)
[2024-11-21 08:52] LABS: Hematocrit 41.7 % (42.0-52.0); Hemoglobin 13.7 g/dL (14.0-18.0); Immature Granulocyte Percent A 0.5 % (0-0.5); Lymphocytes Absolute Auto 1.06 K/mm3 (0.9-3.2); Mean Corpuscular HGB Conc 32.9 g/dl (32-36); Mean Corpuscular Hemoglobin 32.1 pg (26-34); Mean Corpuscular Volume 97.7 fl (80-100); Nucleated Red Blood Cells Absolute Auto 0.000 K/mm3 (0.0-0.012); Nucleated Red Blood Cells Perc 0.0 % (0.0-0.2); Platelet Count Result 189 k/mm3 (150-375); Red Blood Count 4.27 M/mm3 (4.6-6.20); White Blood Count 17.0 K/mm3 (4.5-10.0)
[2024-11-21 08:54] VITALS: BP 108/69; PULSE 73; RESP 18; TEMP 36.2; O2SAT 98
[2024-11-21 09:47] LABS: Anion Gap 9 mmol/L (4-12); Blood Urea Nitrogen 23 mg/dL (9-20); Calcium 9.0 mg/dL (8.4-10.2); Carbon Dioxide 22 mmol/L (22-30); Chloride 108 mmol/L (98-107); Estimated CRCL calculation 117 ml/min; Estimated Glomerular Filt Rate > 60; Glucose 182 mg/dL (65-110); Potassium 4.9 mmol/L (3.4-5.0); Sodium 139 mmol/L (137-145)
--- NOTE | 2024-11-21 09:56 | P.PNGS_ITS ---
Progress Note: A&P Assessment and Plan (1) Appendicitis: Qualifiers: Acute appendicitis type: with generalized peritonitis Appendicitis abscess presence: without abscess Appendicitis gangrene presence: with gangrene Appendicitis perforation presence: with perforation Appendicitis type: acute appendicitis Qualified Code(s): K35.201 - Acute appendicitis with generalized peritonitis, with perforation, without abscess Code(s): K37 - Unspecified appendicitis Status: Acute Assessment and Plan: * Postop day 1 following attempted laparoscopic appendectomy, converted to open appendectomy. Continue IV Zosyn. Will await for signs for bowel function returning. Continue NG tube decompression, bowel rest, and IV fluids today. Monitor SRINATH drain. Will have nursing try to get the patient up to chair and ambulate today. (2) Closed right fibular fracture: Code(s): S82.401A - Unspecified fracture of shaft of right fibula, initial encounter for closed fracture Status: Acute Assessment and Plan: * Managed by Ortho outpatient. Hinged knee brace at the bedside. Will discuss with Ortho to clarify any weight bearing restrictions. Plan I have discussed the patient's case and plan of care with Dr. Cortez. Subjective Subjective Date/Time Seen: 11/21/24 09:56 Post Op day: 1 (Attempted laparoscopic appendectomy, open appendectomy) Patient reports: no flatus, no bowel movement and afebrile (last fever was 100.6F yesterday around 1999) Interval history: Patient denies any abdominal pain or nausea. He feels bloated. No flatus or BM. Has not been out of bed. NG tube with minimal out overnight. His main complaint is the discomfort of his NG tube. No other issues at this time. Exam Const: General: comfortable and no acute distress Orientation/consciousness: patient oriented x3 GI: Inspection: distended and other (RLQ SRINATH drain with scant serosanguineous drainage) GI Palp: Yes Soft to palpation, Yes Tenderness to palpation present (GI) (RLQ, LLQ, and near midline incision) and No Guarding due to palpation present (GI) Auscultation: Hypoactive bowel sounds present Other: Port site incisions with glue intact Midline incision dressing was 50% saturated with bloody drainage, it was removed and new sterile dressing applied. Incision with fara intact and very slight oozing of bloody drainage from the bottom of the incision. Urinary Catheter: Urinary Catheter: patent and draining Objective Data Vital Signs Vital Signs: Vital Signs - 24 hr 11/20/24 11:53 11/20/24 14:16 11/20/24 15:53 Temperature 98.3 F 100.5 F H 100.1 F H Pulse Rate 125 H 93 102 H Respiratory Rate 18 20 116 H Blood Pressure 112/74 127/76 108/73 Pulse Oximetry 97 98 97 Oxygen Delivery Room Air 11/20/24 20:20 11/20/24 21:49 11/20/24 22:04 Temperature 97.8 F 97.6 F 97.3 F L Pulse Rate 71 77 79 Respiratory Rate 20 20 20 Blood Pressure 132/73 133/75 114/86 Pulse Oximetry 97 97 96 Oxygen Delivery 11/20/24 22:34 11/21/24 03:34 11/21/24 08:54 Temperature 97.7 F 97.6 F 97.2 F L Pulse Rate 70 72 73 Respiratory Rate 20 18 18 Blood Pressure 130/74 112/65 108/69 Pulse Oximetry 98 98 98 Oxygen Delivery Intake/Output Intake/Output: Intake & Output 11/18/24 11/19/24 11/20/24 11/21/24 23:59 23:59 23:59 23:59 Intake Total 1200 1340 Output Total 130 525 Balance 1070 815 Meds/Results Medications: Active Medications Generic Name Dose Route Start Last Admin Trade Name Freq PRN Reason Stop Dose Admin Enoxaparin Sodium 40 mg 11/21/24 09:00 11/21/24 08:33 Enoxaparin 40 Mg/0.4 Ml Syringe SUB-Q 40 mg DAILY TAMICA Administration Famotidine 20 mg 11/20/24 21:25 11/21/24 08:33 Famotidine 20 Mg/2 Ml Vial IV PUSH 20 mg Q12HR TAMICA Administration Fentanyl Citrate 25 mcg 11/20/24 16:39 Fentanyl Citrate Inj (*Crx) 100 Mcg/2 Ml Vial IV PUSH Q2M PRN Pain Lactated Ringer's 1,000 mls @ 150 mls/hr 11/20/24 21:20 11/21/24 08:33 Lr - Lactated Ringers Iv IV CONT 150 mls/hr .Q6H40M TAMICA Administration Piperacillin Sod/Tazobactam 50 mls @ 100 mls/hr 11/21/24 00:00 11/21/24 06:22 Sod 3.375 gm/ Sodium Chloride IVPB Infused Q6H TAMICA Infusion Ibuprofen 800 mg in 200 mls @ 400 mls/hr 11/20/24 21:23 11/20/24 23:38 Caldolor 800 Mg/200 Ml IVPB Infused Q6H PRN Infusion Breakthrough Pain Rated 1-3 or NPO Morphine Sulfate 2 mg 11/20/24 21:22 Morphine Sulfate (*Crx) 2 Mg/Ml Inj IV PUSH Q2H PRN Breakthrough Pain Rated 4-6 or NPO Morphine Sulfate 4 mg 11/20/24 21:22 Morphine Sulfate (*Crx) 4 Mg/Ml Inj IV PUSH Q2H PRN Breakthrough Pain Rated 7-10 or NPO Naloxone HCl 0.1 mg 11/20/24 21:20 Naloxone Hcl 0.4 Mg/Ml Vial IV PUSH Q2M PRN Opiate Reversal Ondansetron HCl 4 mg 11/20/24 16:39 Ondansetron Inj 4 Mg/2 Ml Vial IV PUSH ONCE PRN Nausea Ondansetron HCl 4 mg 11/20/24 21:20 Ondansetron Inj 4 Mg/2 Ml Vial IV PUSH Q4H PRN Nausea And Vomiting Radiology Results: ITS Impressions Abdomen/Pelvis CT 11/20/24 14:32 IMPRESSION: Severe appendicitis, with findings concerning for wall breakdown/necrosis and appendiceal rupture. No periappendiceal abscess. Labs Labs: Laboratory Results - last 24 hr 11/20/24 11/20/24 11/20/24 12:20 12:24 21:50 WBC 22.5 H RBC 5.00 Hgb 15.9 Hct 46.1 MCV 92.2 MCH 31.8 MCHC 34.5 RDW 11.9 Plt Count 252 MPV 9.2 Immature Gran % (Auto) 1.1 H Neut % (Auto) 86.0 H Lymph % (Auto) 5.1 L [place] % (Auto) 7.6 Eos % (Auto) 0.0 Baso % (Auto) 0.2 Lymph # (Auto) 1.15 [place] # (Auto) 1.7 H Eos # (Auto) 0.0 Baso # (Auto) 0.0 Abs Immat Gran (auto) 0.24 H Absolute Neuts (auto) 19.3 H Absolute Nucleated RBC 0.000 Nucleated RBC % 0.0 PT 15.1 H INR 1.2 APTT 38.9 H Sodium 138 Potassium 3.9 Chloride 103 Carbon Dioxide 22 Anion Gap 13 H BUN 19 Creatinine 1.09 Estim Creat Clear Calc 84 Estimated GFR > 60 Glucose 179 H Lactic Acid 1.6 Calcium 9.8 Total Bilirubin 1.8 H AST 35 ALT 42 Alkaline Phosphatase 106 C-Reactive Protein > 9.0 H Total Protein 8.6 H Albumin 4.6 Lipase 35 Urine Color Dark yellow Urine Appearance Turbid H Urine pH 5.5 Ur Specific [place] 1.032 Urine Protein 3+ H Urine Glucose (UA) Trace H Urine Ketones Trace H Ur Blood (Man) Negative Urine Nitrate Negative Urine Bilirubin 1+ H Urine Urobilinogen 1.0 Add Ur Microanalysis Reviewed Leukocyte Esterase Rfl Trace H Urine RBC 3-5 H Urine WBC 0-5 Ur Squamous Epith Cells Many H Urine Bacteria None seen Urine Casts >20 Influenza A (RT-PCR) Negative Influenza B (RT-PCR) Negative RSV (RT-PCR) Negative SARS-CoV-2 RNA (RT-PCR) Negative 11/21/24 08:47 WBC 17.0 H RBC 4.27 L Hgb 13.7 L Hct 41.7 L MCV 97.7 D MCH 32.1 MCHC 32.9 RDW 12.3 Plt Count 189 MPV 9.3 Immature Gran % (Auto) 0.5 Neut % (Auto) 86.8 H Lymph % (Auto) 6.2 L [place] % (Auto) 6.3 Eos % (Auto) 0.0 Baso % (Auto) 0.2 Lymph # (Auto) 1.06 [place] # (Auto) 1.1 H Eos # (Auto) 0.0 Baso # (Auto) 0.0 Abs Immat Gran (auto) 0.08 H Absolute Neuts (auto) 14.8 H Absolute Nucleated RBC 0.000 Nucleated RBC % 0.0 PT INR APTT Sodium 139 Potassium 4.9 Chloride 108 H Carbon Dioxide 22 Anion Gap 9 BUN 23 H Creatinine 0.78 Estim Creat Clear Calc 117 Estimated GFR > 60 Glucose 182 H Lactic Acid Calcium 9.0 Total Bilirubin AST ALT Alkaline Phosphatase C-Reactive Protein Total Protein Albumin Lipase Urine Color Urine Appearance Urine pH Ur Specific [place] Urine Protein Urine Glucose (UA) Urine Ketones Ur Blood (Man) Urine Nitrate Urine Bilirubin Urine Urobilinogen Add Ur Microanalysis Leukocyte Esterase Rfl Urine RBC Urine WBC Ur Squamous Epith Cells Urine Bacteria Urine Casts Influenza A (RT-PCR) Influenza B (RT-PCR) RSV (RT-PCR) SARS-CoV-2 RNA (RT-PCR)
--- OUTSIDE RECORDS SUMMARY | 2024-11-21 11:28 | XMS_ITS | Clinical Summary ---
Author Organization [facility] Address [address] [place] [id number] Care Team Providers Care Plodding Machine Operator Name Role Phone Unavailable Primary Care [...]
[2024-11-21] MEDS: MORPHINE SULFATE (*CRX) 4 MG/ML INJ IV PUSH (11:31)
[2024-11-21] MEDS: ONDANSETRON INJ 4 MG/2 ML VIAL IV PUSH (11:31)
[2024-11-21 13:52] VITALS: BP 119/90; PULSE 102; RESP 18; TEMP 36.7; O2SAT 93
[2024-11-21 18:39] VITALS: BP 121/73; PULSE 101; RESP 18; TEMP 36.6; O2SAT 95
[2024-11-21 20:00] VITALS: BP 120/72; PULSE 75; PULSE 97; RESP 16; RESP 18; TEMP 37.1; O2SAT 93; O2SAT 94
[2024-11-21] MEDS: IBUPROFEN IV 800 MG/200 ML 800 MG/200 ML BAG 400 MG IVPB (22:16)
[2024-11-22] MEDS: PIPERACILLIN/TAZOBACTAM SOD 3.375 GM in SODIUM CHLORIDE 0.9% IV 50 ML 100 ML IVPB ×4 (00:17→17:22)
[2024-11-22 04:55] LABS: Hematocrit 35.6 % (42.0-52.0); Hemoglobin 11.7 g/dL (14.0-18.0); Mean Corpuscular HGB Conc 32.9 g/dl (32-36); Mean Corpuscular Hemoglobin 31.9 pg (26-34); Mean Corpuscular Volume 97.0 fl (80-100); Platelet Count Result 197 k/mm3 (150-375); Red Blood Count 3.67 M/mm3 (4.6-6.20); White Blood Count 14.0 K/mm3 (4.5-10.0)
[2024-11-22 05:16] LABS: Anion Gap 7 mmol/L (4-12); Blood Urea Nitrogen 25 mg/dL (9-20); Calcium 8.9 mg/dL (8.4-10.2); Carbon Dioxide 26 mmol/L (22-30); Chloride 108 mmol/L (98-107); Estimated CRCL calculation 100 ml/min; Estimated Glomerular Filt Rate > 60; Glucose 130 mg/dL (65-110); Potassium 4.1 mmol/L (3.4-5.0); Sodium 141 mmol/L (137-145)
[2024-11-22 05:17] VITALS: BP 121/81; PULSE 75; RESP 18; TEMP 36.5; O2SAT 93
[2024-11-22] MEDS: LACTATED RINGERS 1,000 ML 150 ML IV CONT ×3 (05:43→21:57)
[2024-11-22] MEDS: ENOXAPARIN 40 MG/0.4 ML SYRINGE SUB-Q (09:08)
[2024-11-22] MEDS: FAMOTIDINE 20 MG/2 ML VIAL IV PUSH ×2 (09:08→21:54)
[2024-11-22] MEDS: IBUPROFEN IV 800 MG/200 ML 800 MG/200 ML BAG 400 MG IVPB ×2 (09:11→18:59)
--- NOTE | 2024-11-22 11:10 | P.PNGS_ITS ---
Progress Note: A&P Assessment and Plan (1) Appendicitis: Qualifiers: Acute appendicitis type: with generalized peritonitis Appendicitis abscess presence: without abscess Appendicitis gangrene presence: with gangrene Appendicitis perforation presence: with perforation Appendicitis type: acute appendicitis Qualified Code(s): K35.201 - Acute appendicitis with generalized peritonitis, with perforation, without abscess Code(s): K37 - Unspecified appendicitis Status: Acute Assessment and Plan: * Postop day 2 following attempted laparoscopic appendectomy, converted to open appendectomy. WBC count trending down. He is passing flatus and has more bowel sounds today. Will remove his NG tube and start clear liquids. Start transitioning to oral pain medication. Will remove his Mancini catheter. Co ntinue IV Zosyn. Monitor SRINATH drain. Increase activity, up in chair and ambulate in halls again today. Repeat labs tomorrow. (2) Closed right fibular fracture: Code(s): S82.401A - Unspecified fracture of shaft of right fibula, initial encounter for closed fracture Status: Acute Assessment and Plan: * Managed by Ortho outpatient. Continue to use hinged knee brace for ambulation. Weight-bearing as tolerated. Plan I have discussed the patient's case and plan of care with Dr. Cortez. Subjective Subjective Date/Time Seen: 11/22/24 11:10 Post Op day: 2 (Attempted laparoscopic appendectomy, open appendectomy) Patient reports: no new complaints Interval history: Patient denies any abdominal pain this morning. He reports feeling more sore today after getting up and moving last night and this morning. He has been walking the halls and tolerating this well. Per nursing he had bloody drainage on the dressing that required a dressing change twice since I saw the patient yesterday. NG tube with 400 cc out since 7:00 p.m. last night. He reports passing flatus yesterday. No other complaints at this time. Exam Const: General: comfortable and no acute distress Orientation/consciousness: patient oriented x3 GI: Inspection: incision (dressing dry and intact, changed at 6 am by nursing) and other (mildly distended) GI Palp: Yes Soft to palpation and Yes Tenderness to palpation present (GI) Auscultation: normal bowel sounds (more bowel sounds today) Other: SRINATH drain with scant serosanguineous drainage Urinary Catheter: Urinary Catheter: patent and draining Extrem: General: no calf tenderness and no edema Objective Data Vital Signs Vital Signs: Vital Signs - 24 hr 11/21/24 13:07 11/21/24 13:52 11/21/24 18:39 Temperature 98.0 F 97.9 F Pulse Rate 102 H 101 H Respiratory Rate 18 18 Blood Pressure 119/90 121/73 Pulse Oximetry 93 95 Oxygen Delivery Room Air 11/21/24 20:00 11/21/24 20:00 11/22/24 05:17 Temperature 98.7 F 97.7 F Pulse Rate 97 75 75 Respiratory Rate 16 18 18 Blood Pressure 120/72 121/81 Pulse Oximetry 94 93 93 Oxygen Delivery Room Air 11/22/24 09:10 Temperature Pulse Rate Respiratory Rate Blood Pressure Pulse Oximetry Oxygen Delivery Room Air Intake/Output Intake/Output: Intake & Output 11/19/24 11/20/24 11/21/24 11/22/24 23:59 23:59 23:59 23:59 Intake Total 1200 2640 1050 Output Total 130 1655 920 Balance 1070 985 130 Meds/Results Medications: Active Medications Generic Name Dose Route Start Last Admin Trade Name Freq PRN Reason Stop Dose Admin Enoxaparin Sodium 40 mg 11/21/24 09:00 11/22/24 09:08 Enoxaparin 40 Mg/0.4 Ml Syringe SUB-Q 40 mg DAILY TAMICA Administration Famotidine 20 mg 11/20/24 21:25 11/22/24 09:08 Famotidine 20 Mg/2 Ml Vial IV PUSH 20 mg Q12HR TAMICA Administration Fentanyl Citrate 25 mcg 11/20/24 16:39 Fentanyl Citrate Inj (*Crx) 100 Mcg/2 Ml Vial IV PUSH Q2M PRN Pain Lactated Ringer's 1,000 mls @ 150 mls/hr 11/20/24 21:20 11/22/24 09:08 Lr - Lactated Ringers Iv IV CONT Not Given .Q6H40M TAMICA Piperacillin Sod/Tazobactam 50 mls @ 100 mls/hr 11/21/24 00:00 11/22/24 05:44 Sod 3.375 gm/ Sodium Chloride IVPB 100 mls/hr Q6H TAMICA Administration Ibuprofen 800 mg in 200 mls @ 400 mls/hr 11/20/24 21:23 11/22/24 09:11 Caldolor 800 Mg/200 Ml IVPB 400 mls/hr Q6H PRN Administration Breakthrough Pain Rated 1-3 or NPO Morphine Sulfate 2 mg 11/20/24 21:22 Morphine Sulfate (*Crx) 2 Mg/Ml Inj IV PUSH Q2H PRN Breakthrough Pain Rated 4-6 or NPO Morphine Sulfate 4 mg 11/20/24 21:22 11/21/24 11:31 Morphine Sulfate (*Crx) 4 Mg/Ml Inj IV PUSH 4 mg Q2H PRN Administration Breakthrough Pain Rated 7-10 or NPO Naloxone HCl 0.1 mg 11/20/24 21:20 Naloxone Hcl 0.4 Mg/Ml Vial IV PUSH Q2M PRN Opiate Reversal Ondansetron HCl 4 mg 11/20/24 16:39 Ondansetron Inj 4 Mg/2 Ml Vial IV PUSH ONCE PRN Nausea Ondansetron HCl 4 mg 11/20/24 21:20 11/21/24 11:31 Ondansetron Inj 4 Mg/2 Ml Vial IV PUSH 4 mg Q4H PRN Administration Nausea And Vomiting Radiology Results: ITS Impressions Abdomen/Pelvis CT 11/20/24 14:32 IMPRESSION: Severe appendicitis, with findings concerning for wall breakdown/necrosis and appendiceal rupture. No periappendiceal abscess. Labs Labs: Laboratory Results - last 24 hr 11/22/24 04:25 WBC 14.0 H RBC 3.67 L Hgb 11.7 L Hct 35.6 L MCV 97.0 MCH 31.9 MCHC 32.9 RDW 12.3 Plt Count 197 MPV 9.2 Sodium 141 Potassium 4.1 Chloride 108 H Carbon Dioxide 26 Anion Gap 7 BUN 25 H Creatinine 0.92 Estim Creat Clear Calc 100 Estimated GFR > 60 Glucose 130 H Calcium 8.9
[2024-11-22 14:08] VITALS: BP 137/84; PULSE 79; RESP 16; TEMP 37.3; O2SAT 95
[2024-11-22] MEDS: MORPHINE SULFATE (*CRX) 4 MG/ML INJ IV PUSH (19:40)
[2024-11-22 20:00] VITALS: PULSE 106; RESP 18; O2SAT 95
[2024-11-22 21:16] VITALS: BP 148/99; PULSE 106; RESP 20; TEMP 37.1; O2SAT 93
[2024-11-22] MEDS: ONDANSETRON INJ 4 MG/2 ML VIAL IV PUSH (21:54)
[2024-11-22] MEDS: HYDROcodone/acetaminophen (*CRX) 10-325 MG TABLET 1 TAB PO (22:01)
[2024-11-22 23:17] VITALS: BP 126/74; PULSE 131; RESP 24; TEMP 36.9; O2SAT 92
[2024-11-22 23:20] VITALS: PULSE 132; RESP 18; O2SAT 95
--- NOTE | 2024-11-22 23:25 | ECG_ITS ---
Test Date: 2024-11-22 23:37:43 Measurements Intervals [place] Rate: 128 P: 51 NE: 124 QRS: 43 QRSD: 93 T: 24 QT: 386 QTc: 564 Interpretive Statements SINUS TACHYCARDIA NONSPECIFIC ST & T-WAVE ABNORMALITY ABNORMAL ECG No previous ECG available for comparison Electronically Signed On 11-23-2024 10:04:01 CDT by Chris Hughes M.D.
--- NOTE | 2024-11-22 23:32 | PC.NURSE ---
patient complained about severe pain on back and shoulder area that started according to pt about 17:00, he got pain meds as charted, pt walked for a bit, pain improved. pt now stated that he's not feeling well in general, nausea, SOB, zofran was given and pt is getting IVF as ordered.VS were rechecked, no fever but heart rate elevated 131 at rest. surgery site looks intact. Dr. Romeo and charge nurse were notified about the change, new orders are in. EKG, labs and Ct were ordered.
[2024-11-22 23:46] LABS: Hematocrit 39.8 % (42.0-52.0); Hemoglobin 13.5 g/dL (14.0-18.0); Immature Granulocyte Percent A 0.7 % (0-0.5); Lymphocytes Absolute Auto 0.42 K/mm3 (0.9-3.2); Mean Corpuscular HGB Conc 33.9 g/dl (32-36); Mean Corpuscular Hemoglobin 31.5 pg (26-34); Mean Corpuscular Volume 92.8 fl (80-100); Nucleated Red Blood Cells Absolute Auto 0.000 K/mm3 (0.0-0.012); Nucleated Red Blood Cells Perc 0.0 % (0.0-0.2); Platelet Count Result 199 k/mm3 (150-375); Red Blood Count 4.29 M/mm3 (4.6-6.20); White Blood Count 4.2 K/mm3 (4.5-10.0)
[2024-11-23] VITALS (52 sets, daily range): BP systolic 77–149; BP diastolic 47–88; PULSE 87–984; RESP 20–39; TEMP 36.5–38.6; O2SAT 88–98
--- NOTE | 2024-11-23 | ECHO_ITS ---
Patient Info Name: Chris Calvillo Age: 54 years : 1970 Gender: Male Ht: 70 in Wt: 248 lbs BSA: 2.40 m2 BP: 126 / 74 mmHg Heart Rhythm: Sinus Rhythm Technical Quality: Fair Exam Date: 11/23/2024 7:55 AM Patient Status: I Admit Date: 11/20/2024 Exam Type: CA echo dop color flow w con Complete two-dimensional, color flow and Doppler transthoracic echocardiogram is performed with contrast to opacify the left ventricle and to improve the deliniation of the left ventricle endocardial borders. Staff Referring Physician: Isabelle Lugo MD Cone Picker: Irena Melendez Attending Provider: Rojelio Cortez MD Contrast/Agitated Saline Contrast/Ag. Saline: Definity Amount: 2.00 ml Administered By: Irena Melendez Existing IV Access: Yes IV Access Condition: patent with no signs of infiltration Summary 1. Left ventricular chamber dimension is normal. 2. Left ventricular systolic function is normal, estimated at 65-70. 3. There is mildly increased left ventricular wall thickness. 4. The left ventricular diastolic function is grade I diastolic dysfunction. 5. Left atrial chamber dimension is mildly enlarged. 6. There is mild tricuspid valve regurgitation. 7. The aortic root size at the sinus of Valsalva is mildly dilated. Left Ventricle Left ventricular chamber dimension is normal. Left ventricular systolic function is normal, estimated at 65-70. There is mildly increased left ventricular wall thickness. The left ventricular diastolic function is grade I diastolic dysfunction. Right Ventricle Right ventricular chamber dimension is normal. Right ventricular systolic function is normal. Left Atria Left atrial chamber dimension is mildly enlarged. Right Atria Right atrial chamber dimension is normal. Atrial Septum Intact interatrial septum visualized by color flow imaging. Aortic Valve The aortic valve is trileaflet. There is mild aortic valve sclerosis. There is no aortic valve stenosis. There is trace aortic valve regurgitation. Pulmonic Valve The pulmonic valve is normal. There is no pulmonic valve stenosis. There is trace pulmonic regurgitation. Mitral Valve The mitral valve has normal leaflets. There is no mitral valve stenosis. There is trace mitral valve regurgitation. Tricuspid Valve The tricuspid valve leaflets are normal. There is no significant tricuspid valve stenosis. There is mild tricuspid valve regurgitation. No pulmonary hypertension, estimated pulmonary arterial systolic pressure is 31 mmHg. Pericardium/Pleural The pericardium appears normal. There is no pericardial effusion. Inferior Vena Cava Normal inferior vena cava with <50% collapse upon inspiration consistent with elevated right atrial pressure, 10 mmHg. Aorta The aortic root size at the sinus of Valsalva is mildly dilated. Left Ventricular Outflow Tract Name Value Normal LVOT 2D LVOT Diameter 2.5 cm LVOT Doppler LVOT Peak Velocity 114 cm/s LVOT Peak Gradient 5 mmHg LVOT Mean Gradient 3 mmHg LVOT VTI 14 cm LVOT VTI/AV VTI Ratio 0.8 LVOT Stroke Volume 69 ml LVOT CO 8.1 l/min LVOT CI 3.4 l/min/m2 Pulmonic Valve Name Value Normal PV Doppler PV Peak Velocity 107 cm/s PV Peak Gradient 5 mmHg Mitral Valve Name Value Normal MV Diastolic Function MV E Peak Velocity 79 cm/s MV A Peak Velocity 103 cm/s MV E/A 0.8 MV Decel Time (PW) 220 ms MV Annular TDI MV E/e' (Septal) 7.8 MV E/e' (Lateral) 7.6 MV E/e' (Average) 7.7 Tricuspid Valve Name Value Normal TV Regurgitation Doppler TR Peak Velocity 229 cm/s TR Peak Gradient 21 mmHg Estimated PAP/RSVP RA Pressure 10 mmHg <=5 PA Systolic Pressure 31 mmHg <36 RV Systolic Pressure 31 mmHg <36 TV Annular TDI TV Lateral Sophia s' Velocity 20.9 cm/s >=9.5 Aortic Valve Name Value Normal AV Doppler AV Peak Velocity 141 cm/s AV Peak Gradient 8 mmHg AV Mean Gradient 5 mmHg AV VTI 18 cm AV Area (Cont Eq VTI) 3.9 cm2 >=3.0 AV Area (Cont Eq Scooby) 3.9 cm2 AV DI (Scooby) 0.81 AV Regurgitation 2D LVOT Area 4.8 cm2 Ventricles Name Value Normal LV Dimensions 2D/MM IVS Diastolic Thickness (2D) 1.1 cm 0.6-1.0 LVID Diastole (2D) 4.5 cm 4.2-5.8 LVIW Diastolic Thickness (2D) 1.3 cm 0.6-1.0 LVID Systole (2D) 3.0 cm 2.5-4.0 LVOT Diameter 2.5 cm LV Mass (2D Cubed) 206.85 g 88.00-224.00 LV Mass Index (2D Cubed) 86 g/m2 49-115 Relative Wall Thickness (2D) 0.58 <=0.42 LV Fractional Shortening/Ejection Fraction 2D/MM LV Fractional Shortening (2D) 34 % 25-43 LV EF (2D Teichholz) 63 % LV Diastolic Volume (4C MOD) 104 ml LV EF (4C MOD) 65 % LV Diastolic Volume (2C MOD) 94 ml LV EF (2C MOD) 62 % LV Diastolic Volume (BP MOD) 103 ml 62-150 LV Diastolic Volume Index (BP MOD) 43 ml/m2 34-74 LV Systolic Volume (BP MOD) 36 ml 21-61 LV Systolic Volume Index (BP MOD) 15 ml/m2 11-31 LV EF (BP MOD) 65 % 52-72 LV Diastolic Length (4C) 9.2 cm LV Systolic Length (4C) 7.3 cm LV Stroke Volume (4C MOD) 68 ml Atria Name Value Normal LA Dimensions LA Volume (4C A-L) 35 ml LA Volume (BP A-L) 41 ml RA Dimensions RA Systolic Major [place] Length (4C) 6.0 cm 2.1-2.7 RA Area (4C) 14.7 cm2 <=18.0 Report Signatures
[2024-11-23 00:05] LABS: Anion Gap 7 mmol/L (4-12); Blood Urea Nitrogen 23 mg/dL (9-20); Calcium 8.8 mg/dL (8.4-10.2); Carbon Dioxide 22 mmol/L (22-30); Chloride 108 mmol/L (98-107); Estimated CRCL calculation 106 ml/min; Estimated Glomerular Filt Rate > 60; Glucose 147 mg/dL (65-110); Potassium 3.0 mmol/L (3.4-5.0); Sodium 137 mmol/L (137-145)
[2024-11-23] MEDS: MORPHINE SULFATE (*CRX) 4 MG/ML INJ IV PUSH (00:58)
[2024-11-23] MEDS: PIPERACILLIN/TAZOBACTAM SOD 3.375 GM in SODIUM CHLORIDE 0.9% IV 50 ML 100 ML IVPB ×4 (00:58→18:35)
--- NOTE | 2024-11-23 04:27 | PC.NURSE ---
pt is still suffering from SOB, Sat. RA dropped to 88% , heart rate still elevated 146. Dr. Romeo and charge nurse were notified immediately. CT abdomen results were read to the provider. CTA ordered stat, pt will be transferred to IMU. pt currently on 2 L NC. IVF were held.
--- NOTE | 2024-11-23 05:34 | PM.IMCN ---
Assessment and Plan Assessment and plan (1) Acute hypoxic respiratory failure: Code(s): J96.01 - Acute respiratory failure with hypoxia Status: Acute (2) Status post appendectomy: Onset Date: 11/20/24 Code(s): Z90.49 - Acquired absence of other specified parts of digestive tract Status: Acute (3) Tachycardia: Code(s): R00.0 - Tachycardia, unspecified Status: Acute (4) Low serum bicarbonate: Code(s): R79.89 - Other specified abnormal findings of blood chemistry Status: Acute (5) Hepatic steatosis: Code(s): K76.0 - Fatty (change of) liver, not elsewhere classified Status: Acute (6) Closed right fibular fracture: Qualifiers: Encounter type: subsequent encounter Code(s): S82.401A - Unspecified fracture of shaft of right fibula, initial encounter for closed fracture Status: Acute Plan Patient is a developed acute hypoxic respiratory failure of uncertain etiology. The patient did at have significant drop in his white count from previous and is now leukopenic instead of having leukocytosis. He remains afebrile. He has been on routine DVT prophylaxis postop with Lovenox. Noticed definite gravity prospecting observer helper possible pulmonary embolism. Patient went for stat CT of the chest which was negative for any large vessel PE but more peripheral exam was limited due to contrast timing and motion artifact. The patient is still having right-sided chest pain and has had rapid increase in oxygen requirement up to 10 L nasal cannula. Patient still remains significantly tachypneic and is struggling to maintain oxygen saturations of 92% on [address] patient on Airvo. ABG demonstrated mild respiratory alkalosis. I had initially ordered a dose of Lasix due to crackles on exam but further laboratory findings demonstrated lactic acidosis in a low serum bicarb. The patient's mucous membranes are dry his lips are peeling. He appears more intervascular volume depleted despite nursing reporting that the patient has drinks 5-6 L of water a day or more and receiving IV fluid hydration. According to the cumulative fluid summary the patient is about 4.5 L positive for admission. Patient has remained on Zosyn since admission. CT of the abdomen pelvis demonstrated stable postoperative findings. It Is unclear if the patient is developing sepsis verses, possible ARDS, pulmonary edema seems less likely given lack of findings on imaging. Stat troponin has been ordered. Will repeat EKG. Will check cheetah score is see if patient is fluid responsive. And check echocardiogram to evaluate cardiac structure and function. Electrolyte panel did demonstrate mild hypokalemia. Will check magnesium level and replace if needed. Will give 40 mEq potassium chloride rider. Given poor contrast timing on CTA will obtain lower extremity Dopplers to rule out DVT. 85 minutes spent in critical care activities. Due to a high probability of clinically significant, life threatening deterioration, the patient required my highest level of preparedness to intervene emergently and I personally spent this critical care time directly and personally managing the patient. This critical care time included obtaining a history; examining the patient; pulse oximetry; ordering and review of studies; arranging urgent treatment with development of a management plan; evaluation of patient's response to treatment; frequent reassessment; and discussions with other providers. It was exclusive of separately billable procedures and treating other patients and teaching time. Please see Assessment and Plan section and the rest of the note for further information on patient assessment and treatment. HPI Date of Consult Consult date: 11/23/24 Requesting Physician: Rojelio Cortez MD Primary Care Provider: Delroy Cueto MD Consult Narrative Narrative: Chris Calvillo is a 54 year old male with a past history of umbilical hernia, allergic rhinitis, erectile dysfunction, obstructive sleep apnea and closed right fibular fracture who presented to the hospital 11/20/2024 due to abdominal pain. The patient had broken is fibula 2 weeks prior and had been on pain medications. They told him that the pain medications could cause constipation so when he started having abdominal pain he delayed coming to the ER because he thought it was due to constipation. He stopped taking his pain medications but continued to have abdominal pain and diarrhea for several days and began running a fever 3 days prior to coming to the hospital. In the ER the patient has CT scan which demonstrated severe appendicitis with rupture. The patient was treated with empiric antibiotic therapy and taken to the OR where he underwent attempted laparoscopic appendectomy with conversion to open appendectomy which demonstrated dense adhesions to the appendix, distal ileum and cecum to the retroperitoneum and severe inflammation dated passed into the ileal mesenteric and retroperitoneum and ruptured appendix P. There was no evidence of perforation of the remainder the bowel or significant injury. According to the OR note f operation lasted 4-5 times longer than even a case with a difficult ruptured appendix. Estimated blood loss was 200 mL. The patient reports that he was doing okay postoperatively until around 17:00 last night. At that time he reported right shoulder and chest pain that radiated to the back and down into his abdomen. He reported feeling short of breath and generally uncomfortable of. He reports that the pain was greater than a 10 in intensity. He could not find any relief in symptoms. He was sent for stat CT of the abdomen pelvis which demonstrated expected postoperative findings. Stat labs were obtained which demonstrated significant drop in his white count from prior in patient went from having significant leukocytosis to leukopenia. His hemoglobin had remained relatively stable. His serum bicarb was normal and his creatinine was stable. He was afebrile. As the evening progressed the patient developed sinus tachycardia. Around 23:00 he has a jump in his heart rate into the 120s and 130s. Stat EKG had been ordered which demonstrated sinus tachycardia. Review of Systems Review of Systems: 12 systems were reviewed with pertinent positives and negatives per HPI. Except as documented in the HPI, all other systems were reviewed and are negative. [facility] Past Medical History Medical History (Updated 11/23/24 @ 07:32 by Joanie Rivas DO) Obstructive sleep apnea Anxiety disorder, unspecified Pure hypercholesterolemia Erectile dysfunction Umbilical hernia Closed right fibular fracture November 2024 Surgical History Surgical History (Updated 11/23/24 @ 07:33 by Joanie Rivas DO) Status post appendectomy (11/20/24) Due to perforated appendicitis with generalized peritonitis H/O colonoscopy October 2023, Dr Ronquillo Family History Family History Other Diabetes mellitus Social History Social History (Updated 11/23/24 @ 07:26 by Joanie Rivas DO) Social History: The patient is a former smoker. He drinks a couple of beers each night. He he denies history of illicit substance use. 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 He has a 13-year-old son. He denies illicit substance use. Code status: Full code Surrogate decision maker: Araceli Simms (sister) Smoking packs per day: 1 Smoking cigarettes per day: 20.0 Years smoked: 16 Smoking pack-years: 16.00 Smoking status: Former smoker Tobacco type: cigarettes Second hand tobacco smoke exposure: No Smoking end date: 05/04/05 Alcohol intake: current Drinks per week: 14 Alcohol use details: social Substance use: never Substance use type: does not use Do You Feel Safe in your Home?: Yes Lack of Transportation: No Lack of Food: Never True Current Housing: I Have Housing Concerned About Future Housing: No Difficulty Paying Gas/Electric Bills: No Difficulty Paying for Meds: No Currently Unemployed: No Education: Trade/Vocational Certificate Difficulty w/ Childcare or Family Care: No Living arrangements: with family Occupation/Education: occupation Gender identity (if verbalized by the patient): Male Sexual Orientation (if Verbalized by the Patient): Straight or Heterosexual Spiritual care concerns: No Meds Home Medications and Allergies Home Medications ?Medication ?Instructions ?Recorded ?Confirmed ?Type tadalafil 5 mg tablet See Rx Instructions .Route 10/31/24 11/20/24 Rx .COMPLEX #90 tabs fluticasone propionate 93 1 spray intranasal Q12H 11/20/24 11/20/24 History mcg/actuation breath activated aerosol (Xhance) Allergies Allergy/AdvReac Type Severity Reaction Status Date / Time No Known Allergies Allergy Unknown Verified 11/20/24 12:08 Vital Signs Vital Signs - 24 hr 11/22/24 09:10 11/22/24 14:08 11/22/24 20:00 Temperature 99.2 F Pulse Rate 79 106 H Respiratory Rate 16 18 Blood Pressure 137/84 Pulse Oximetry 95 95 Oxygen Delivery Room Air Room Air 11/22/24 21:16 11/22/24 23:17 11/22/24 23:20 Temperature 98.8 F 98.5 F Pulse Rate 106 H 131 H 132 H Respiratory Rate 20 24 H 18 Blood Pressure 148/99 H 126/74 Pulse Oximetry 93 92 95 Oxygen Delivery Room Air 11/23/24 01:00 11/23/24 01:00 11/23/24 04:15 Temperature 97.7 F Pulse Rate 122 H 122 H 146 H Respiratory Rate 20 20 24 H Blood Pressure 116/88 Pulse Oximetry 93 93 88 L Oxygen Delivery Room Air 11/23/24 04:34 Temperature Pulse Rate 146 H Respiratory Rate 24 H Blood Pressure Pulse Oximetry 88 L Oxygen Delivery Room Air Exam Narrative: Weight 112.9 kg BMI 35.7 Const: Other: Severely ill-appearing, appears stated age, restless HENMT: Other: Mucous membranes are dry, peeling lips, no oral pharyngeal erythema, crowded posterior oropharynx Eyes: Other: Pupils are equal and reactive, no scleral icterus, no conjunctival pallor Neck: Other: Large neck circumference, no lymphadenopathy, no JVD Resp: Other: Crackles at the bases bilaterally, moderate tachypnea, no accessory muscle use Cardio: Other: Sinus tachycardia, 2+ bilateral radial pedal pulses, no murmur GI: Other: Distended, postoperative dressing clean dry and intact, hyperactive bowel sounds Back/Spine/Pelvis: Other: No thoracic kyphosis Skin: Other: Warm to touch, non jaundice, generalized pallor Neuro: Other: Alert oriented, speech is clear, no facial asymmetry, no localizing neurologic deficits noted during the course of conversation Extrem: Other: No clubbing, cyanosis or edema no mottling of extremities Psych: Other: Mildly anxious otherwise appropriate mood and affect, cooperative, intact judgment and insight Results Labs 11/23/24 06:09 11/23/24 06:09 Labs: Short CBC 11/22/24 Range/Units 23:42 WBC 4.2 L (4.5-10.0) K/mm3 Hgb 13.5 L (14.0-18.0) g/dL Hct 39.8 L (42.0-52.0) % Plt Count 199 (150-375) k/mm3 BMP 11/22/24 23:42 Sodium 137 Potassium 3.0 L Chloride 108 H Carbon Dioxide 22 BUN 23 H Creatinine 0.87 Glucose 147 H Calcium 8.8 Impressions Chest CTA 11/23/24 05:53 IMPRESSION: 1. Free intraperitoneal air in the upper abdomen. Correlate for recent surgery. In the absence of known surgery this is most likely secondary to bowel perforation. Clinically correlate. 2: No large central pulmonary embolism. Limited evaluation of the secondary and tertiary pulmonary arteries. 3: Small right pleural effusion. Dependent atelectasis. 4: Ascites. Abdomen/Pelvis CT 11/23/24 06:53 IMPRESSION: 1. Postoperative changes consistent with recent surgery, likely appendectomy. Clinically correlate. No abscess identified. 2: Small pleural effusions with dependent atelectasis. Quality VTE Prophylaxis VTE prophylaxis: pharmacologic ordered (Lovenox 40 mg subQ daily) Hospitalist MIPS Advance Care Plan I have confirmed that the patient's Advanced Care Plan is present, code status is documented, or surrogate decision maker is listed in patient medical record.: Yes Medication Reconciliation I have utilized all available resources to obtain, update and review the patients current medications (includes all prescriptions, OTC, herbals, cannabis, and nutritional supplements).: Yes
[2024-11-23 06:15] LABS: Hematocrit 42.0 % (42.0-52.0); Hemoglobin 14.4 g/dL (14.0-18.0); Mean Corpuscular HGB Conc 34.3 g/dl (32-36); Mean Corpuscular Hemoglobin 31.9 pg (26-34); Mean Corpuscular Volume 92.9 fl (80-100); Platelet Count Result 245 k/mm3 (150-375); Red Blood Count 4.52 M/mm3 (4.6-6.20); White Blood Count 10.7 K/mm3 (4.5-10.0)
--- NOTE | 2024-11-23 06:29 | PC.NURSE ---
This patient, Chris Calvillo, was received from [[id number] ] on 11/23/24 at 0520. Patient/family oriented to unit policies and routines
[2024-11-23] MEDS: POTASSIUM CHLORIDE INJ 40 MEQ in SODIUM CHLORIDE 0.9% IV 500 ML 130 MEQ IVPB (06:36)
[2024-11-23 06:39] LABS: Anion Gap 13 mmol/L (4-12); Blood Urea Nitrogen 25 mg/dL (9-20); Calcium 8.7 mg/dL (8.4-10.2); Carbon Dioxide 18 mmol/L (22-30); Chloride 106 mmol/L (98-107); Estimated CRCL calculation 86 ml/min; Estimated Glomerular Filt Rate > 60; Glucose 168 mg/dL (65-110); Magnesium 1.8 mg/dL (1.6-2.3); Potassium 3.6 mmol/L (3.4-5.0); Sodium 137 mmol/L (137-145)
--- NOTE | 2024-11-23 06:41 | ECG_ITS ---
Test Date: 2024-11-23 07:12:58 Measurements Intervals [place] Rate: 123 P: 21 SC: 128 QRS: 2 QRSD: 91 T: -3 QT: 314 QTc: 450 Interpretive Statements SINUS TACHYCARDIA NONSPECIFIC T-WAVE ABNORMALITY ABNORMAL ECG Compared to ECG 11/22/2024 23:37:43 No significant changes Electronically Signed On 11-23-2024 10:07:26 CDT by Chris Hughes M.D.
[2024-11-23 07:20] LABS: NT Pro B Type Natriuretic Pept 645 pg/mL (19.9-100); Troponin I < 0.012 ng/mL (0.000-0.034)
[2024-11-23 07:28] LABS: CRP 16.0 mg/dL (<1.0)
[2024-11-23 07:47] LABS: Alveolar/Arterial O2 Gradient 252.9 mmHg; Carboxyhemoglobin 1.0 % THb (0-2.0); Fractional Inspired Oxygen 50 %; HCO3 ABG 21.3 mEq/l (22.0-26.0); Methemoglobin ABG 0.1 %THb (0-1.5); Oxygen Content ABG 20.0 %vol (16.0-22.0); Oxygen Saturation ABG 93.9 % (95.0-100.0); PCO2 ABG 32.9 mmHg (35.0-45.0); PO2 ABG 66.6 mmHg (80.0-100.0); PO2 FiO2 Ratio Arterial Blood 1.33 %; Reduced Hemoglobin 6.5 %THb (0-5.0)
[2024-11-23 07:48] LABS: Liters per Minute 10.0 LPM; Modified Allen's Test Pass; Site Drawn RIGHT BRACHIAL
[2024-11-23] MEDS: PERFLUTREN LIPID MICROSPHERES 1.5 ML VIAL DILUTED TO 10 ML TOTAL VOLUME IV PUSH (08:20)
--- NOTE | 2024-11-23 08:46 | P.CONPL_ITS ---
Assessment and Plan Assessment and plan (1) Acute hypoxic respiratory failure: Code(s): J96.01 - Acute respiratory failure with hypoxia Status: Acute Assessment and Plan: His acute hypoxic respiratory failure was due to sepsis with multi-system involvement. Dr. Lugo is assuming are with transfer to ICU. History of Present Illness History of Present Illness Consult date: 11/23/24 Requesting physician: Rojelio Cortez MD Chief complaint: acute hypoxemic respiratory failure Narrative: pt was seen November 23 @ 11: a.m. Room 200 NEW: Chris Ramachandran is a 54-year-old man admitted 11/20/2024 with ruptured appendicitis with peritonitis, had attempted laparoscopic appendectomy, converted to open appendectomy. He had a right fibular fracture 2 weeks prior to admission. Overnight he developed worsening saturation. CTA showed no PE, small right pleural effusion, dependent atelectasis and ascites. No infiltrate. He is on high flow 70 L a minute and 60% oxygen with a saturation of 95%. He continued to have deterioration, appeared to have sepsis, was at the bedside when I came to see the patient. He is soon care as the patient had multiple problems related to sepsis and acute respiratory failure which was worsening. Sister and sister in law were at the bedside. Tobacco: 1 ppd x 16 years, quit 2005. PMH : Hyperlipidemia, ED, obstructive sleep apnea, anxiety DATA * 11/23/2024, 5:53 a.m. CTA; IMPRESSION: 1. Free intraperitoneal air in the upper abdomen. Correlate for recent surgery. In the absence of known surgery this is most likely secondary to bowel perforation. Clinically correlate. 2: No large central pulmonary embolism. Limited evaluation of the secondary and tertiary pulmonary arteries. 3: Small right pleural effusion. Dependent atelectasis. 4: Ascites. [facility] Past Medical History Medical History Obstructive sleep apnea Anxiety disorder, unspecified Pure hypercholesterolemia Erectile dysfunction Umbilical hernia Closed right fibular fracture November 2024 Surgical History Surgical History Status post appendectomy (11/20/24) Due to perforated appendicitis with generalized peritonitis H/O colonoscopy October 2023, Dr Ronquillo Family History Family History Other Diabetes mellitus Social History Social History Social History: The patient is a former smoker. He drinks a couple of beers each night. He he denies history of illicit substance use. 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 He has a 13-year-old son. He denies illicit substance use. Code status: Full code Surrogate decision maker: Araceli Simms (sister) Smoking packs per day: 1 Smoking cigarettes per day: 20.0 Years smoked: 16 Smoking pack-years: 16.00 Smoking status: Former smoker Tobacco type: cigarettes Second hand tobacco smoke exposure: No Smoking end date: 05/04/05 Alcohol intake: current Drinks per week: 14 Alcohol use details: social Substance use: never Substance use type: does not use Do You Feel Safe in your Home?: Yes Lack of Transportation: No Lack of Food: Never True Current Housing: I Have Housing Concerned About Future Housing: No Difficulty Paying Gas/Electric Bills: No Difficulty Paying for Meds: No Currently Unemployed: No Education: Trade/Vocational Certificate Difficulty w/ Childcare or Family Care: No Living arrangements: with family Occupation/Education: occupation Gender identity (if verbalized by the patient): Male Sexual Orientation (if Verbalized by the Patient): Straight or Heterosexual Spiritual care concerns: No Meds Home Medications and Allergies Home Medications ?Medication ?Instructions ?Recorded ?Confirmed ?Type tadalafil 5 mg tablet See Rx Instructions .Route 10/31/24 11/20/24 Rx .COMPLEX #90 tabs fluticasone propionate 93 1 spray intranasal Q12H 11/20/24 11/20/24 History mcg/actuation breath activated aerosol (Xhance) Allergies Allergy/AdvReac Type Severity Reaction Status Date / Time No Known Allergies Allergy Unknown Verified 11/23/24 23:23 Vital Signs Vital Signs - 24 hr 11/22/24 09:10 11/22/24 14:08 11/22/24 20:00 Temperature 37.3 C Pulse Rate 79 106 H Respiratory Rate 16 18 Blood Pressure 137/84 Pulse Oximetry 95 95 Oxygen Delivery Room Air Room Air Oxygen Flow Rate Fraction of Inspired Oxygen 11/22/24 21:16 11/22/24 23:17 11/22/24 23:20 Temperature 37.1 C 36.9 C Pulse Rate 106 H 131 H 132 H Respiratory Rate 20 24 H 18 Blood Pressure 148/99 H 126/74 Pulse Oximetry 93 92 95 Oxygen Delivery Room Air Oxygen Flow Rate Fraction of Inspired Oxygen 11/23/24 01:00 11/23/24 01:00 11/23/24 04:15 Temperature 36.5 C Pulse Rate 122 H 122 H 146 H Respiratory Rate 20 20 24 H Blood Pressure 116/88 Pulse Oximetry 93 93 88 L Oxygen Delivery Room Air Oxygen Flow Rate Fraction of Inspired Oxygen 11/23/24 04:34 11/23/24 06:23 11/23/24 06:26 Temperature Pulse Rate 146 H 130 H 130 H Respiratory Rate 24 H 24 H Blood Pressure Pulse Oximetry 88 L 92 Oxygen Delivery Room Air High Flow Therapy with Na Oxygen Flow Rate 10 Fraction of Inspired Oxygen 11/23/24 07:35 11/23/24 07:55 11/23/24 08:02 Temperature 36.5 C Pulse Rate 124 H 127 H 122 H Respiratory Rate 20 20 24 H Blood Pressure 115/73 Pulse Oximetry 94 94 95 Oxygen Delivery High Flow Nasal Cannula High Flow Therapy with Na Oxygen Flow Rate 10 70 Fraction of Inspired Oxygen 60 Exam 2 Narrative: GEN: Alert, oriented, not in distress. Resp elevated 28 per minute, on high flow 70%, borderline saturation HEENT: pupils are equal, EOMI, symmetrical face; dry oral membranes; NECK: Trachea is midline CHEST: Equal air entry, symmetric excursion, decreased breath sounds, increased accessory muscle use CV: Tachycardic regular S1S2 no m/g/r ABD : (+) bowel sounds Extremities : no clubbing, cyanosis, 1 (+) edema PSYCH: normal thought and speech Results Laboratory Findings 11/25/24 04:53 11/25/24 04:53 ABG, PT/INR, D-dimer: ABG ABG pH 7.429 (7.350-7.450) 11/23/24 07:41 ABG pCO2 32.9 mmHg (35.0-45.0) L 11/23/24 07:41 ABG pO2 66.6 mmHg (80.0-100.0) L 11/23/24 07:41 ABG O2 Saturation 93.9 % (95.0-100.0) L 11/23/24 07:41 PT/INR, D-dimer PT 15.1 Seconds (11.1-14.7) H 11/20/24 21:50 INR 1.2 11/20/24 21:50 Abnormal lab findings: Abnormal Labs 11/20/24 11/20/24 11/20/24 12:20 12:24 21:50 WBC 22.5 H RBC Hgb Hct Immature Gran % (Auto) 1.1 H Neut % (Auto) 86.0 H Lymph % (Auto) 5.1 L Lymph # (Auto) [place] # (Auto) 1.7 H Abs Immat Gran (auto) 0.24 H Absolute Neuts (auto) 19.3 H PT 15.1 H APTT 38.9 H ABG pCO2 ABG pO2 ABG HCO3 ABG O2 Saturation Reduced Hemoglobin Potassium Chloride Carbon Dioxide Anion Gap 13 H BUN Glucose 179 H Lactic Acid Total Bilirubin 1.8 H C-Reactive Protein > 9.0 H NT-Pro-B Natriuret Pep Total Protein 8.6 H Urine Appearance Turbid H Urine Protein 3+ H Urine Glucose (UA) Trace H Urine Ketones Trace H Urine Bilirubin 1+ H Leukocyte Esterase Rfl Trace H Urine RBC 3-5 H Ur Squamous Epith Cells Many H 11/21/24 11/22/24 11/22/24 08:47 04:25 23:42 WBC 17.0 H 14.0 H 4.2 L RBC 4.27 L 3.67 L 4.29 L Hgb 13.7 L 11.7 L 13.5 L Hct 41.7 L 35.6 L 39.8 L Immature Gran % (Auto) 0.7 H Neut % (Auto) 86.8 H 83.7 H Lymph % (Auto) 6.2 L 9.9 L Lymph # (Auto) 0.42 L [place] # (Auto) 1.1 H Abs Immat Gran (auto) 0.08 H Absolute Neuts (auto) 14.8 H PT APTT ABG pCO2 ABG pO2 ABG HCO3 ABG O2 Saturation Reduced Hemoglobin Potassium 3.0 L Chloride 108 H 108 H 108 H Carbon Dioxide Anion Gap BUN 23 H 25 H 23 H Glucose 182 H 130 H 147 H Lactic Acid Total Bilirubin C-Reactive Protein NT-Pro-B Natriuret Pep Total Protein Urine Appearance Urine Protein Urine Glucose (UA) Urine Ketones Urine Bilirubin Leukocyte Esterase Rfl Urine RBC Ur Squamous Epith Cells 11/23/24 11/23/24 11/23/24 06:09 07:09 07:41 WBC 10.7 H RBC 4.52 L Hgb Hct Immature Gran % (Auto) Neut % (Auto) Lymph % (Auto) Lymph # (Auto) [place] # (Auto) Abs Immat Gran (auto) Absolute Neuts (auto) PT APTT ABG pCO2 32.9 L ABG pO2 66.6 L ABG HCO3 21.3 L ABG O2 Saturation 93.9 L Reduced Hemoglobin 6.5 H Potassium Chloride Carbon Dioxide 18 L Anion Gap 13 H BUN 25 H Glucose 168 H Lactic Acid 3.7 H Total Bilirubin C-Reactive Protein 16.0 H NT-Pro-B Natriuret Pep 645 H Total Protein Urine Appearance Urine Protein Urine Glucose (UA) Urine Ketones Urine Bilirubin Leukocyte Esterase Rfl Urine RBC Ur Squamous Epith Cells
[2024-11-23 09:48] LABS: Troponin I < 0.012 ng/mL (0.000-0.034)
[2024-11-23] MEDS: ENOXAPARIN 40 MG/0.4 ML SYRINGE SUB-Q (10:04)
[2024-11-23] MEDS: ACETAMINOPHEN 325 MG TABLET 650 MG PO (10:04)
[2024-11-23] MEDS: FAMOTIDINE 20 MG/2 ML VIAL IV PUSH (10:04)
--- NOTE | 2024-11-23 10:10 | IVDEFINITY ---
Prior to administration of IV Definity the patient was educated on the risks and benefits of the imaging enhancing agent including potential adverse side effects. The patient verbalized understanding. Allergies were verified. No exclusion criteria were identified and at least one of the following inclusion criteria were met: 1) physician request, 2) patient technically difficult to image (per the [place] [employer] guidelines of two or more segments not discernable within the apical view), or 3) questionable left ventricular function. ?
[2024-11-23] MEDS: SODIUM CHLORIDE 0.9% IV 1,000 ML 500 ML IV CONT (10:26)
--- NOTE | 2024-11-23 11:30 | PC.NURSE ---
Notified DR Michel of patients status, increased SOA, tachy, increased abdominal pain at approximately 1100. Previously had spoke to Dr Rivas at the beginning of the shift. Dr Michel at bedside, received order for stat abdominal CT. ICU provider, Dr Lugo at bedside. Will be transferring PT to ICU after CT.
[2024-11-23] MEDS: ALBUTEROL SULFATE NEB 2.5 MG/3 ML INH INHALATION (11:36)
--- NOTE | 2024-11-23 12:09 | P.CONIN_ITS ---
Assessment and Plan Assessment and plan (1) Acute hypoxic respiratory failure: Code(s): J96.01 - Acute respiratory failure with hypoxia Status: Acute Assessment and Plan: Acute respiratory failure likely related to SIRS/sepsis -11/22: CTA chest: No large central PE, small right pleural effusion, dependent atelectasis, ascites, free intraperitoneal air in the upper abdomen correlate for some recent surgery -patient was initially placed on 10 L nasal cannula, now on high-flow therapy 60 L flow rate and 77% FiO2 -patient significantly tachypneic, breathing 40+ times a minute, with O2 side of 90-92% -add bronchodilators -patient likely will be intubated given picture of severe sepsis, hypoxia (2) Severe sepsis: Code(s): A41.9 - Sepsis, unspecified organism; R65.20 - Severe sepsis without septic shock Status: Acute Assessment and Plan: Patient POD #3, tachypneic with hypoxic respiratory failure, lactic acidosis, increasing WBC count, anion gap metabolic acidosis -lactic acid of 3.7, was given 500 mL IV fluid bolus with improvement of lactic acid to 3.5 -will give additional 1 L IV fluid bolus -continue Zosyn (11/20) -likely related to SIRS/severe sepsis secondary to ruptured appendicitis -11/22: CT scan of the abdomen and pelvis this morning showed postop changes consider the since surgery likely appendectomy, no abscess identified. Small pleural effusion with dependent atelectasis 11/02: Repeat CT scan of the abdomen and pelvis pending -will obtain labs along with lipase (3) Metabolic acidosis: Code(s): E87.20 - Acidosis, unspecified Status: Acute Assessment and Plan: Patient developed metabolic acidosis likely related to lactic acidosis - will give additional IV fluids secondary to severe sepsis -continue urine output, renal function, electrolyte (4) Status post appendectomy: Onset Date: 11/20/24 Code(s): Z90.49 - Acquired absence of other specified parts of digestive tract Status: Acute Assessment and Plan: POD #3: Discussed with surgery, NG tube will be inserted due to abdominal distension Plan DVT prophylaxis: Lovenox Stress ulcer prophylaxis: Protonix Nutrition: NPO Code Status: Full code Critical Care Time Spent: 55 minutes Discussed with patient and his sister GABRIELA Charles, updated them with patient's condition plan of care. The aware that the patient be getting a PICC line placed off to which she may be intubated given his hypoxia and tachypnea. Due to a high probability of clinically significant, life threatening deterioration, the patient required my highest level of preparedness to intervene emergently and I personally spent this critical care time directly and personally managing the patient. This critical care time included obtaining a history; examining the patient; pulse oximetry; ordering and review of studies; arranging urgent treatment with development of a management plan; evaluation of patient's response to treatment; frequent reassessment; and discussions with other providers. It was exclusive of separately billable procedures and treating other patients and teaching time. Please see Assessment and Plan section and the rest of the note for further information on patient assessment and treatment This dictation may have been done utilizing a voice recognition system. Attempts have been made to correct errors. However, there may be uncorrected grammatical, spelling, and recognitions errors present. 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 Patient was on pain medication for recent fibular fracture, he thought that the pain was secondary to constipation the abdominal pain persisted, along with fevers 3 days prior to hospital admission. In the ER the CT scan of abdomen and pelvis demonstrated severe appendicitis with rupture, patient was started on antibiotic therapy and taken to the OR on 11/20/2024. It was a difficult impending MAURICIO as per the overnight given the retroperitoneal position of the ruptured appendix along with severe adhesions of the appendix, distant ileum and ileal mesentery to be stuck in the retroperitoneum. Postop day 1 and 2 patient denies any abdominal pain, was afebrile, hemodynamically stable, NG tube was in place, on postop day 2 patient was passing gas. 11/23: POD#3 patient started developing hypoxia with increased oxygen requirements, leukocytosis, increasing abdominal pain. CTA scan of the chest abdomen pelvis was negative for any large vessel PE, free intraperitoneal air in the upper abdomen correlate for recent surgery. Post of changes consistent with recent surgery likely appendectomy. No abscess identified. Small pleural effusion with dependent atelectasis. -lactic acid was elevated to 3.7 this morning, patient received 500 mL IV fluid bolus, repeat lactic was 3.5, patient was also tachycardic in the 110-140s. Initially was on 10 L nasal cannula, which was increased to high-flow therapy, 60 L flow rate and 77% FiO2. WBC count is increased to 10.7 from 4.2 yesterday, hemoglobin 14.4, platelets 245, sodium 137, potassium 3.6, chloride 106, CO2 18, anion gap of 13, BUN 25, creatinine 1.07. C-reactive protein 16.0, proBNP 645, troponin < 0.012 x 2 11/23: venous Dopplers negative for DVT in bilateral lower extremities I was asked to see the patient in the intermediate Unit secondary to hypoxic respiratory failure, increasing abdominal pain. Patient was seen and examined in the intermediate Unit, pleasant gentleman currently having pain in the abdomen radiating to the flanks. He states he is confined comfortable position and has not been able to sleep due to the discomfort. Complains of shortness of breath, on high-flow therapy, 77 and % FiO2 and 60 L flow rate. Patient is on Zosyn, urine output has been adequate. Denies any nausea vomiting at this time, denies any chest Review of Systems 2 Review of Systems: All systems reviewed & are unremarkable except as noted in HPI and below PMFSH Past Medical History Medical History (Updated 11/23/24 @ 12:29 by Isabelle Lugo MD) Obstructive sleep apnea Anxiety disorder, unspecified Pure hypercholesterolemia Erectile dysfunction Umbilical hernia Closed right fibular fracture November 2024 Surgical History Surgical History (Updated 11/23/24 @ 07:33 by Joanie Rivas DO) Status post appendectomy (11/20/24) Due to perforated appendicitis with generalized peritonitis H/O colonoscopy October 2023, Dr Ronquillo Family History Family History Other Diabetes mellitus Social History Social History (Updated 11/23/24 @ 07:26 by Joanie Rivas DO) Social History: The patient is a former smoker. He drinks a couple of beers each night. He he denies history of illicit substance use. 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 He has a 13-year-old son. He denies illicit substance use. Code status: Full code Surrogate decision maker: Araceli Simms (sister) Smoking packs per day: 1 Smoking cigarettes per day: 20.0 Years smoked: 16 Smoking pack-years: 16.00 Smoking status: Former smoker Tobacco type: cigarettes Second hand tobacco smoke exposure: No Smoking end date: 05/04/05 Alcohol intake: current Drinks per week: 14 Alcohol use details: social Substance use: never Substance use type: does not use Do You Feel Safe in your Home?: Yes Lack of Transportation: No Lack of Food: Never True Current Housing: I Have Housing Concerned About Future Housing: No Difficulty Paying Gas/Electric Bills: No Difficulty Paying for Meds: No Currently Unemployed: No Education: Trade/Vocational Certificate Difficulty w/ Childcare or Family Care: No Living arrangements: with family Occupation/Education: occupation Gender identity (if verbalized by the patient): Male Sexual Orientation (if Verbalized by the Patient): Straight or Heterosexual Spiritual care concerns: No Meds Home Medications and Allergies Home Medications ?Medication ?Instructions ?Recorded ?Confirmed ?Type tadalafil 5 mg tablet See Rx Instructions .Route 10/31/24 11/20/24 Rx .COMPLEX #90 tabs fluticasone propionate 93 1 spray intranasal Q12H 11/20/24 11/20/24 History mcg/actuation breath activated aerosol (Xhance) Allergies Allergy/AdvReac Type Severity Reaction Status Date / Time No Known Allergies Allergy Unknown Verified 11/20/24 12:08 Vital Signs Vital Signs - 24 hr 11/22/24 14:08 11/22/24 20:00 11/22/24 21:16 Temperature 99.2 F 98.8 F Pulse Rate 79 106 H 106 H Respiratory Rate 16 18 20 Blood Pressure 137/84 148/99 H Pulse Oximetry 95 95 93 Oxygen Delivery Room Air Oxygen Flow Rate Fraction of Inspired Oxygen 11/22/24 23:17 11/22/24 23:20 11/23/24 01:00 Temperature 98.5 F Pulse Rate 131 H 132 H 122 H Respiratory Rate 24 H 18 20 Blood Pressure 126/74 Pulse Oximetry 92 95 93 Oxygen Delivery Room Air Room Air Oxygen Flow Rate Fraction of Inspired Oxygen 11/23/24 01:00 11/23/24 04:15 11/23/24 04:34 Temperature 97.7 F Pulse Rate 122 H 146 H 146 H Respiratory Rate 20 24 H 24 H Blood Pressure 116/88 Pulse Oximetry 93 88 L 88 L Oxygen Delivery Room Air Oxygen Flow Rate Fraction of Inspired Oxygen 11/23/24 06:23 11/23/24 06:26 11/23/24 07:35 Temperature Pulse Rate 130 H 130 H 124 H Respiratory Rate 24 H 20 Blood Pressure Pulse Oximetry 92 94 Oxygen Delivery High Flow Therapy with Na High Flow Nasal Cannula Oxygen Flow Rate 10 10 Fraction of Inspired Oxygen 11/23/24 07:55 11/23/24 08:00 11/23/24 08:00 Temperature 97.7 F Pulse Rate 127 H 123 H Respiratory Rate 20 Blood Pressure 115/73 Pulse Oximetry 94 91 Oxygen Delivery Oxygen Flow Rate Fraction of Inspired Oxygen 11/23/24 08:02 11/23/24 09:00 11/23/24 10:00 Temperature Pulse Rate 122 H 115 H Respiratory Rate 24 H Blood Pressure Pulse Oximetry 95 93 Oxygen Delivery High Flow Therapy with Na High Flow Therapy with Na Oxygen Flow Rate 70 60 Fraction of Inspired Oxygen 60 70 11/23/24 11:35 11/23/24 11:38 11/23/24 11:49 Temperature Pulse Rate 112 H 112 H 120 H Respiratory Rate 24 H 24 H 20 Blood Pressure Pulse Oximetry 97 Oxygen Delivery High Flow Therapy with Na Oxygen Flow Rate 70 Fraction of Inspired Oxygen 60 11/23/24 11:52 Temperature 99.2 F Pulse Rate 127 H Respiratory Rate 24 H Blood Pressure 149/69 H Pulse Oximetry 98 Oxygen Delivery Oxygen Flow Rate Fraction of Inspired Oxygen Exam 2 Narrative: General: Pleasant gentleman seems to be in discomfort HEENT:? Pupils equal and reactive, sclera is clear Neck:? Supple Respiratory:? Clear to auscultation bilaterally, decreased at bases, coarse breath sounds at bases, no wheezing Cardiac:? S1-S2 is normal, sinus tachycardia Abdomen:? Abdominal distended, tympanic to percussion, tender to palpation, decreased bowel sounds Extremities:? No edema, palpable pedal pulses, warm extremities Neuro:? Patient is awake, alert, oriented, able to answer questions appropriately and follows simple commands Skin:? Warm and dry Psych:? Anxious appearing Results Labs 11/23/24 06:09 11/23/24 06:09 Labs: Short CBC 11/22/24 11/23/24 Range/Units 23:42 06:09 WBC 4.2 L 10.7 H (4.5-10.0) K/mm3 Hgb 13.5 L 14.4 (14.0-18.0) g/dL Hct 39.8 L 42.0 (42.0-52.0) % Plt Count 199 245 (150-375) k/mm3 BMP 11/22/24 11/23/24 23:42 06:09 Sodium 137 137 Potassium 3.0 L 3.6 Chloride 108 H 106 Carbon Dioxide 22 18 L BUN 23 H 25 H Creatinine 0.87 1.09 Glucose 147 H 168 H Calcium 8.8 8.7 Cardiac Enzymes 11/23/24 11/23/24 Range/Units 06:09 09:08 Troponin I < 0.012 < 0.012 (0.000-0.034) ng/mL
[2024-11-23] MEDS: LIDOCAINE 1% PF INJ 5 ML VIAL INFILTRATE (12:45)
[2024-11-23] MEDS: ETOMIDATE 20 MG/10 ML AMPUL 30 MG IV PUSH (13:40)
[2024-11-23] MEDS: ROCURONIUM BROMIDE 50 MG/5 ML VIAL 75 MG IV PUSH (13:41)
[2024-11-23] MEDS: PROPOFOL IV EMULSION 100 ML 3.39 MG IV CONT (13:52)
[2024-11-23] MEDS: LACTATED RINGERS 1,000 ML 999 ML IV CONT ×2 (13:52→18:35)
--- NOTE | 2024-11-23 13:55 | WPDPROCEDUR ---
Procedures Intubation Intubation Date: 11/23/24 Intubation Time: 13:55 Consent: Consent was obtained from the patient and his sister Araceli who is the POA, after explaining the rationale and indication for intubation. Both are agreeable to intubation and mechanical ventilation A pre-procedural Time-Out was completed immediately before starting the procedure and confirmed: Patient Identification, Site, Procedure, Patient Position and the Availability of Requisite Equipment: Yes Sedative: etomidate Paralytic: rocuronium Laryngoscope: fiber optic video scope Assist device used: fiber optic device ET tube size: 8 Tube secured depth (cm): 25 Tube secured location: lips Tube placement confirmation: visualized tube passing through cords, equal breath sounds bilaterally, no breath sounds over epigastrium and confirmation by capnometry Patient tolerated procedure: well Intubation complications: none
[2024-11-23] MEDS: CENTRAL LINE FLUSH 10 ML IV PUSH ×2 (14:09→23:07)
[2024-11-23] MEDS: FENTANYL 2,500MCG/NS250ML(*CRX 2,500 MCG/250 ML BAG IV CONT (14:10)
[2024-11-23] MEDS: MIDAZOLAM HCL (*CRX) 2 MG/2 ML VIAL IV PUSH (14:10)
--- NOTE | 2024-11-23 14:18 | PM.PNGS ---
Progress Note: A&P Assessment and Plan (1) Severe sepsis: Code(s): A41.9 - Sepsis, unspecified organism; R65.20 - Severe sepsis without septic shock Status: Acute Assessment and Plan: Patient became hypoxic, as well as tachypneic and tachycardic overnight. Patient was on Airvo at 60-70%, now intubated in the ICU. Evaluation for PE, acute NE, CHF have all been negative today. Patient is status is likely related to sirs/severe sepsis secondary to ruptured appendicitis. Laparotomy will be performed this afternoon by Dr. Cortez, and patient will likely return to the ICU to resume critical care management afterwards. (2) Appendicitis: Qualifiers: Acute appendicitis type: with generalized peritonitis Appendicitis abscess presence: without abscess Appendicitis gangrene presence: with gangrene Appendicitis perforation presence: with perforation Appendicitis type: acute appendicitis Qualified Code(s): K35.201 - Acute appendicitis with generalized peritonitis, with perforation, without abscess Code(s): K37 - Unspecified appendicitis Status: Acute (3) Closed right fibular fracture: Qualifiers: Encounter type: subsequent encounter Code(s): S82.401A - Unspecified fracture of shaft of right fibula, initial encounter for closed fracture Status: Acute Plan Discussed patient's case and plan of care with Dr. Cortez. Subjective Subjective Date/Time Seen: 11/23/24 14:18 Interval history: Patient had a rough night, as he developed acute hypoxic respiratory failure later in the evening yesterday. He reports that he started having pain from his right shoulder down to his right groin yesterday. He had a bowel movement which relieved a small amount of the pain. He was able to sit up in the chair, but pain continued to progress. Along with increased pain, patient became very short of breath. Patient was placed on high-flow therapy with nasal cannula as of this morning around 6:30 a.m when his O2 dropped to 88. He has since been stable in the 90s. Had 1 incidence of low-grade fever at 99.2 around 2:00 pm yesterday afternoon, but otherwise afebrile. Yesterday patient was slightly leukopenic at 4.2, up to 10.7 today. Increasingly tachycardic with pulse rate up to 146 early this morning. Respiratory rate has been around 24 breaths per minute. He has been on routine DVT prophylaxis postop with Lovenox. Hospitalist team consult at around 5:30 a.m. Stat troponin normal. EKG obtained and demonstrated no significant changes from previous EKG yesterday. BNP 645. Lactic acid elevated at 3.7 this morning. CRP 16. Cheetah score 29%, indicating fluid responsive state. 1 L fluid bolus over 2 hrs ordered. Hypokalemia present on labs today and 40 mEq of potassium chloride rider was given. Magnesium level drawn and normal at 1.8. Echo was ordered and did not show any acute process. Venous Doppler study negative for DVT. CT of the abdomen and pelvis today demonstrated increasing free intraperitoneal air, suspicious for bowel leak. Increasing fluid in the mesentery with ascites involving the perihepatic space. No discrete abscess identified. Increasing consolidation of the lower lobes which may represent atelectasis or pneumonia. Developing small pleural effusions. Chest x-ray obtained and demonstrated bibasilar airspace disease, likely representing pneumonia or edema. Small right pleural effusion. NG tube was placed an abdominal x-ray confirmed it to be in the stomach. Patient was transferred to ICU. Per planner intern note, this is likely related to sirs/severe sepsis secondary to ruptured appendicitis. Patient was intubated successfully and placed on mechanical ventilation. Sedated with propofol and fentanyl infusion. Patient will be taken back to the OR today for laparotomy. He will likely return to the ICU following the surgery. Exam Const: General: in distress and uncomfortable Resp: Other: On Airvo. Able to make complete sentences. GI: Inspection: distended GI Palp: Yes Firmness to palpation present (GI) and Yes Tenderness to palpation present (GI) Other: Midline incision as well as laparoscopic incisions clean and dry with no signs of infection, dehiscence, skin necrosis. Patient's abdomen is distended. SRINATH drain with serosanguineous fluid. Skin: General skin exam: normal color and no rashes or lesions noted Objective Data Vital Signs Vital Signs: Vital Signs - 24 hr 11/22/24 20:00 11/22/24 21:16 11/22/24 23:17 Temperature 98.8 F 98.5 F Pulse Rate 106 H 106 H 131 H Respiratory Rate 18 20 24 H Blood Pressure 148/99 H 126/74 Pulse Oximetry 95 93 92 Oxygen Delivery Room Air Oxygen Flow Rate Fraction of Inspired Oxygen 11/22/24 23:20 11/23/24 01:00 11/23/24 01:00 Temperature Pulse Rate 132 H 122 H 122 H Respiratory Rate 18 20 20 Blood Pressure Pulse Oximetry 95 93 93 Oxygen Delivery Room Air Room Air Oxygen Flow Rate Fraction of Inspired Oxygen 11/23/24 04:15 11/23/24 04:34 11/23/24 06:23 Temperature 97.7 F Pulse Rate 146 H 146 H 130 H Respiratory Rate 24 H 24 H 24 H Blood Pressure 116/88 Pulse Oximetry 88 L 88 L 92 Oxygen Delivery Room Air High Flow Therapy with Na Oxygen Flow Rate 10 Fraction of Inspired Oxygen 11/23/24 06:26 11/23/24 07:35 11/23/24 07:55 Temperature 97.7 F Pulse Rate 130 H 124 H 127 H Respiratory Rate 20 20 Blood Pressure 115/73 Pulse Oximetry 94 94 Oxygen Delivery High Flow Nasal Cannula Oxygen Flow Rate 10 Fraction of Inspired Oxygen 11/23/24 08:00 11/23/24 08:00 11/23/24 08:02 Temperature Pulse Rate 123 H 122 H Respiratory Rate 24 H Blood Pressure Pulse Oximetry 91 95 Oxygen Delivery High Flow Therapy with Na Oxygen Flow Rate 70 Fraction of Inspired Oxygen 60 11/23/24 09:00 11/23/24 10:00 11/23/24 11:35 Temperature Pulse Rate 115 H 112 H Respiratory Rate 24 H Blood Pressure Pulse Oximetry 93 Oxygen Delivery High Flow Therapy with Na Oxygen Flow Rate 60 Fraction of Inspired Oxygen 70 11/23/24 11:38 11/23/24 11:49 11/23/24 11:52 Temperature 99.2 F Pulse Rate 112 H 120 H 127 H Respiratory Rate 24 H 20 24 H Blood Pressure 149/69 H Pulse Oximetry 97 98 Oxygen Delivery High Flow Therapy with Na Oxygen Flow Rate 70 Fraction of Inspired Oxygen 60 11/23/24 12:00 11/23/24 12:00 11/23/24 13:52 Temperature Pulse Rate 121 H 106 H Respiratory Rate 24 H Blood Pressure Pulse Oximetry 90 Oxygen Delivery High Flow Therapy with Na Oxygen Flow Rate 60 Fraction of Inspired Oxygen 70 11/23/24 14:10 Temperature Pulse Rate 125 H Respiratory Rate 24 H Blood Pressure Pulse Oximetry Oxygen Delivery Oxygen Flow Rate Fraction of Inspired Oxygen Intake/Output Intake/Output: Intake & Output 11/20/24 11/21/24 11/22/24 11/23/24 23:59 23:59 23:59 23:59 Intake Total 1200 2640 4435 1940 Output Total 130 3115 2935 500 Balance 9567 589 7204 1440 Meds/Results Medications: Active Medications Generic Name Dose Route Start Last Admin Trade Name Freq PRN Reason Stop Dose Admin Acetaminophen 650 mg 11/22/24 11:10 11/23/24 10:04 Acetaminophen 325 Mg Tablet PO 650 mg Q4H PRN Administration Mild Pain (1-3) or Fever Hydrocodone Bitart/Acetaminophen 1 tab 11/22/24 11:10 Hydrocodone/Acetaminophen (*Crx) 5-325 Mg Tablet PO Q4H PRN Pain Rated 4-6 Hydrocodone Bitart/Acetaminophen 1 tab 11/22/24 11:10 11/22/24 22:01 Hydrocodone/Acetaminophen (*Crx) 10-325 Mg Tablet PO 1 tab Q6H PRN Administration Pain Rated 7-10 Enoxaparin Sodium 40 mg 11/21/24 09:00 11/23/24 10:04 Enoxaparin 40 Mg/0.4 Ml Syringe SUB-Q 40 mg DAILY TAMICA Administration Famotidine 20 mg 11/20/24 21:25 11/23/24 10:04 Famotidine 20 Mg/2 Ml Vial IV PUSH 20 mg Q12HR TAMICA Administration Fentanyl Citrate 25 mcg 11/20/24 16:39 Fentanyl Citrate Inj (*Crx) 100 Mcg/2 Ml Vial IV PUSH Q2M PRN Pain Piperacillin Sod/Tazobactam 50 mls @ 100 mls/hr 11/21/24 00:00 11/23/24 14:14 Sod 3.375 gm/ Sodium Chloride IVPB 100 mls/hr Q6H TAMICA Administration Ibuprofen 800 mg in 200 mls @ 400 mls/hr 11/20/24 21:23 11/22/24 21:30 Caldolor 800 Mg/200 Ml IVPB Infused Q6H PRN Infusion Breakthrough Pain Rated 1-3 or NPO Propofol 100 mls @ 10.161 mls/hr 11/23/24 13:45 11/23/24 13:52 Diprivan IV CONT 5 mcg/kg/min .Q9H51M TAMICA 3.39 mls/hr Administration Protocol 15 MCG/KG/MIN Fentanyl Citrate 2,500 mcg in 250 mls @ 5 mls/hr 11/23/24 14:05 11/23/24 14:10 Fentanyl 2,500 Mcg/Ns 250 Ml IV CONT 50 mcg/hr .Q50H TAMICA 5 mls/hr Administration Protocol 50 MCG/HR Ipratropium [place] 0.5 mg 11/23/24 14:00 Ipratropium Br 0.02% Inh Soln 0.5 Mg/2.5 Ml Vial INHALATION Q6HRT TAMICA Levalbuterol HCl 0.63 mg 11/23/24 14:00 Levalbuterol Neb 1.25 Mg/3 Ml INHALATION Q6HRT [facility] Morphine Sulfate 2 mg 11/20/24 21:22 Morphine Sulfate (*Crx) 2 Mg/Ml Inj IV PUSH Q2H PRN Breakthrough Pain Rated 4-6 or NPO Morphine Sulfate 4 mg 11/20/24 21:22 11/23/24 00:58 Morphine Sulfate (*Crx) 4 Mg/Ml Inj IV PUSH 4 mg Q2H PRN Administration Breakthrough Pain Rated 7-10 or NPO Multi-Ingred Cream/Lotion/Oil/Oint 1 applic 11/23/24 21:00 Mineral Oil/White Petrolatum Ointment EACH EYE Q12HR TAMICA Naloxone HCl 0.1 mg 11/20/24 21:20 Naloxone Hcl 0.4 Mg/Ml Vial IV PUSH Q2M PRN Opiate Reversal Ondansetron HCl 4 mg 11/20/24 16:39 11/22/24 21:54 Ondansetron Inj 4 Mg/2 Ml Vial IV PUSH 4 mg ONCE PRN Administration Nausea Ondansetron HCl 4 mg 11/20/24 21:20 11/21/24 11:31 Ondansetron Inj 4 Mg/2 Ml Vial IV PUSH 4 mg Q4H PRN Administration Nausea And Vomiting Pantoprazole Sodium 40 mg 11/24/24 09:00 Pantoprazole Sodium Iv 40 Mg Vial IV PUSH QAM TAMICA Sodium Chloride 10 ml 11/23/24 14:00 11/23/24 14:09 Central Line Flush IV PUSH 10 ml Q8HR TAMICA Administration Sodium Chloride 10 ml 11/23/24 13:39 Central Line Flush IV PUSH PRN PRN with TPN bag changes Sodium Chloride 20 ml 11/23/24 13:39 Central Line Flush IV PUSH PRN PRN after blood draws Radiology Results: ITS Impressions Chest CTA 11/23/24 05:53 IMPRESSION: 1. Free intraperitoneal air in the upper abdomen. Correlate for recent surgery. In the absence of known surgery this is most likely secondary to bowel perforation. Clinically correlate. 2: No large central pulmonary embolism. Limited evaluation of the secondary and tertiary pulmonary arteries. 3: Small right pleural effusion. Dependent atelectasis. 4: Ascites. Venous Doppler Study 11/23/24 09:56 Impression: No evidence of deep venous thrombosis Abdomen/Pelvis CT 11/23/24 13:00 IMPRESSION: 1. Increasing free intraperitoneal air 11/22/2024, suspicious for bowel leak. Increasing fluid in the mesentery with ascites involving the perihepatic space. No discrete abscess identified. Consider correlation with contrast-enhanced CT abdomen. 2: Increasing consolidation of the lower lobes which may represent atelectasis or pneumonia. 3: Developing small pleural effusions. Abdomen X-Ray 11/23/24 14:04 IMPRESSION: 1: NG tube tip in the stomach. 2: Bibasilar airspace disease, edema versus pneumonia. Chest X-Ray 11/23/24 14:04 IMPRESSION: 1: NG tube tip in the stomach. 2: Bibasilar airspace disease, edema versus pneumonia. Labs Labs: Laboratory Results - last 24 hr 11/22/24 11/23/24 11/23/24 23:42 06:09 07:09 WBC 4.2 L 10.7 H RBC 4.29 L 4.52 L Hgb 13.5 L 14.4 Hct 39.8 L 42.0 MCV 92.8 92.9 MCH 31.5 31.9 MCHC 33.9 34.3 RDW 12.2 12.3 Plt Count 199 245 MPV 8.8 9.0 Immature Gran % (Auto) 0.7 H Neut % (Auto) 83.7 H Lymph % (Auto) 9.9 L [place] % (Auto) 5.0 Eos % (Auto) 0.2 Baso % (Auto) 0.5 Lymph # (Auto) 0.42 L [place] # (Auto) 0.2 Eos # (Auto) 0.0 Baso # (Auto) 0.0 Abs Immat Gran (auto) 0.03 Absolute Neuts (auto) 3.6 Absolute Nucleated RBC 0.000 Nucleated RBC % 0.0 Puncture Site ABG pH ABG pCO2 ABG pO2 ABG PO2/FiO2 Ratio ABG HCO3 ABG O2 Saturation ABG O2 Content ABG Base Excess A-a Gradient Oxyhemoglobin Carboxyhemoglobin Methemoglobin Reduced Hemoglobin Total Hemoglobin O2 Delivery Device O2 Liters/Min FiO2 Sodium 137 137 Potassium 3.0 L 3.6 Chloride 108 H 106 Carbon Dioxide 22 18 L Anion Gap 7 13 H BUN 23 H 25 H Creatinine 0.87 1.09 Estim Creat Clear Calc 106 86 Estimated GFR > 60 > 60 Glucose 147 H 168 H Lactic Acid 3.7 H Calcium 8.8 8.7 Magnesium 1.8 Troponin I < 0.012 C-Reactive Protein 16.0 H NT-Pro-B Natriuret Pep 645 H 11/23/24 11/23/24 11/23/24 07:41 09:08 09:30 WBC RBC Hgb Hct MCV MCH MCHC RDW Plt Count MPV Immature Gran % (Auto) Neut % (Auto) Lymph % (Auto) [place] % (Auto) Eos % (Auto) Baso % (Auto) Lymph # (Auto) [place] # (Auto) Eos # (Auto) Baso # (Auto) Abs Immat Gran (auto) Absolute Neuts (auto) Absolute Nucleated RBC Nucleated RBC % Puncture Site Right brachial ABG pH 7.429 ABG pCO2 32.9 L ABG pO2 66.6 L ABG PO2/FiO2 Ratio 1.33 ABG HCO3 21.3 L ABG O2 Saturation 93.9 L ABG O2 Content 20.0 ABG Base Excess -2.1 A-a Gradient 252.9 Oxyhemoglobin 92.4 Carboxyhemoglobin 1.0 Methemoglobin 0.1 Reduced Hemoglobin 6.5 H Total Hemoglobin 15.4 O2 Delivery Device High flow nasal deisy O2 Liters/Min 10.0 FiO2 50 Sodium Potassium Chloride Carbon Dioxide Anion Gap BUN Creatinine Estim Creat Clear Calc Estimated GFR Glucose Lactic Acid 3.5 H Calcium Magnesium Troponin I < 0.012 C-Reactive Protein NT-Pro-B Natriuret Pep
--- NOTE | 2024-11-23 14:29 | CONSULT_PTH ---
PATIENT: Chris Calvillo LOC: [facility] #:[id number] AGE/SX: 54/M ROOM: 201 RE11/20/[address]: Opal Wilkerson PA-C : 1970 BED: 01 DIS: 12/09/2024 SPEC #: [id number] RECD: 11/23/24 15:35 STATUS: KOBE REQ #: [id number] TONI: 11/23/24 14:[address]: Rojelio Cortez DEPT: [facility] Consult RECD BY: Kedar Mcdaniel MLT, ([facility]) ENTERED: 11/23/24 15:36 SP TYPE: Consult OT DR: MD Natalie Sosa MD Shannon J. Hopen, DO Zohair H. Karmally, MD Tissues: A - Smear Procedures: Hematology Consult
--- NOTE | 2024-11-23 14:29 | WPDHPUPDATE1 ---
History and Physical Update Update Date/Time: 11/23/24 14:29 History and Physical has been reviewed, including an updated exam of the patient. There are NO changes in the patient's condition. Risks, benefits, and alternatives have been discussed and questions answered. Patient agrees to proceed with procedure.
--- NOTE | 2024-11-23 14:30 | PM.PNGS ---
Progress Note: A&P Assessment and Plan (1) Severe sepsis: Code(s): A41.9 - Sepsis, unspecified organism; R65.20 - Severe sepsis without septic shock Status: Acute Assessment and Plan: Dr. Rivas's and Dr. Lugo's care appreciated. I have been following the patient's condition since I arrived this morning. Evaluation for other conditions such as pulmonary embolism, acute CT, CHF, have all been negative. Earlier today, I had decided that he would need a second-look laparotomy as he has continued to deteriorate. Repeat CT scan shows increased intraperitoneal air which solidifies that decision. Interestingly, patient had active bowel sounds and very normal exam yesterday. There is no enteric content coming from his SRINATH drain. Even if the laparotomy is negative, it is definitely indicated. I spoke with the patient's sister and explained his condition and my concerns. I explained the need for laparotomy and that most likely he does have a bowel perforation. She is in agreement with proceeding with laparotomy. Patient will return to the intensive care unit following surgery and critical care management will need to be continued. (2) Acute hypoxic respiratory failure: Code(s): J96.01 - Acute respiratory failure with hypoxia Status: Acute Assessment and Plan: Currently intubated and on mechanical ventilator (3) Status post appendectomy: Onset Date: 11/20/24 Code(s): Z90.49 - Acquired absence of other specified parts of digestive tract Status: Acute Assessment and Plan: Pathology shows ruptured appendicitis but no evidence of tumor (4) Closed right fibular fracture: Qualifiers: Encounter type: subsequent encounter Code(s): S82.401A - Unspecified fracture of shaft of right fibula, initial encounter for closed fracture Status: Acute Subjective Subjective Date/Time Seen: 11/23/24 14:30 Post Op day: 3 Patient reports: other (Patient intubated) Review of Systems Review of Systems: ROS unobtainable: Yes unobtainable due to endotracheal tube Exam Const: General: lethargic GI: Inspection: incision (Dressing dry and intact, serosanguineous fluid per SRINATH drain) GI Palp: Yes Soft to palpation (Patient sedated, was just intubated) Objective Data Vital Signs Vital Signs: Vital Signs - 24 hr 11/22/24 20:00 11/22/24 21:16 11/22/24 23:17 Temperature 37.1 C 36.9 C Pulse Rate 106 H 106 H 131 H Respiratory Rate 18 20 24 H Blood Pressure 148/99 H 126/74 Pulse Oximetry 95 93 92 Oxygen Delivery Room Air Oxygen Flow Rate Fraction of Inspired Oxygen 11/22/24 23:20 11/23/24 01:00 11/23/24 01:00 Temperature Pulse Rate 132 H 122 H 122 H Respiratory Rate 18 20 20 Blood Pressure Pulse Oximetry 95 93 93 Oxygen Delivery Room Air Room Air Oxygen Flow Rate Fraction of Inspired Oxygen 11/23/24 04:15 11/23/24 04:34 11/23/24 06:23 Temperature 36.5 C Pulse Rate 146 H 146 H 130 H Respiratory Rate 24 H 24 H 24 H Blood Pressure 116/88 Pulse Oximetry 88 L 88 L 92 Oxygen Delivery Room Air High Flow Therapy with Na Oxygen Flow Rate 10 Fraction of Inspired Oxygen 11/23/24 06:26 11/23/24 07:35 11/23/24 07:55 Temperature 36.5 C Pulse Rate 130 H 124 H 127 H Respiratory Rate 20 20 Blood Pressure 115/73 Pulse Oximetry 94 94 Oxygen Delivery High Flow Nasal Cannula Oxygen Flow Rate 10 Fraction of Inspired Oxygen 11/23/24 08:00 11/23/24 08:00 11/23/24 08:02 Temperature Pulse Rate 123 H 122 H Respiratory Rate 24 H Blood Pressure Pulse Oximetry 91 95 Oxygen Delivery High Flow Therapy with Na Oxygen Flow Rate 70 Fraction of Inspired Oxygen 60 11/23/24 09:00 11/23/24 10:00 11/23/24 11:35 Temperature Pulse Rate 115 H 112 H Respiratory Rate 24 H Blood Pressure Pulse Oximetry 93 Oxygen Delivery High Flow Therapy with Na Oxygen Flow Rate 60 Fraction of Inspired Oxygen 70 11/23/24 11:38 11/23/24 11:49 11/23/24 11:52 Temperature 37.3 C Pulse Rate 112 H 120 H 127 H Respiratory Rate 24 H 20 24 H Blood Pressure 149/69 H Pulse Oximetry 97 98 Oxygen Delivery High Flow Therapy with Na Oxygen Flow Rate 70 Fraction of Inspired Oxygen 60 11/23/24 12:00 11/23/24 12:00 11/23/24 13:52 Temperature Pulse Rate 121 H 106 H Respiratory Rate 24 H Blood Pressure Pulse Oximetry 90 Oxygen Delivery High Flow Therapy with Na Oxygen Flow Rate 60 Fraction of Inspired Oxygen 70 11/23/24 14:10 Temperature Pulse Rate 125 H Respiratory Rate 24 H Blood Pressure Pulse Oximetry Oxygen Delivery Oxygen Flow Rate Fraction of Inspired Oxygen Intake/Output Intake/Output: Intake & Output 11/20/24 11/21/24 11/22/24 11/23/24 23:59 23:59 23:59 23:59 Intake Total 1200 2640 4435 1940 Output Total 130 1655 2935 500 Balance 1323 615 5625 1440 Meds/Results Medications: Active Medications Generic Name Dose Route Start Last Admin Trade Name Freq PRN Reason Stop Dose Admin Acetaminophen 650 mg 11/22/24 11:10 11/23/24 10:04 Acetaminophen 325 Mg Tablet PO 650 mg Q4H PRN Administration Mild Pain (1-3) or Fever Hydrocodone Bitart/Acetaminophen 1 tab 11/22/24 11:10 Hydrocodone/Acetaminophen (*Crx) 5-325 Mg Tablet PO Q4H PRN Pain Rated 4-6 Hydrocodone Bitart/Acetaminophen 1 tab 11/22/24 11:10 11/22/24 22:01 Hydrocodone/Acetaminophen (*Crx) 10-325 Mg Tablet PO 1 tab Q6H PRN Administration Pain Rated 7-10 Enoxaparin Sodium 40 mg 11/21/24 09:00 11/23/24 10:04 Enoxaparin 40 Mg/0.4 Ml Syringe SUB-Q 40 mg DAILY TAMICA Administration Famotidine 20 mg 11/20/24 21:25 11/23/24 10:04 Famotidine 20 Mg/2 Ml Vial IV PUSH 20 mg Q12HR TAMICA Administration Fentanyl Citrate 25 mcg 11/20/24 16:39 Fentanyl Citrate Inj (*Crx) 100 Mcg/2 Ml Vial IV PUSH Q2M PRN Pain Piperacillin Sod/Tazobactam 50 mls @ 100 mls/hr 11/21/24 00:00 11/23/24 14:14 Sod 3.375 gm/ Sodium Chloride IVPB 100 mls/hr Q6H TAMICA Administration Ibuprofen 800 mg in 200 mls @ 400 mls/hr 11/20/24 21:23 11/22/24 21:30 Caldolor 800 Mg/200 Ml IVPB Infused Q6H PRN Infusion Breakthrough Pain Rated 1-3 or NPO Propofol 100 mls @ 10.161 mls/hr 11/23/24 13:45 11/23/24 13:52 Diprivan IV CONT 5 mcg/kg/min .Q9H51M TAMICA 3.39 mls/hr Administration Protocol 15 MCG/KG/MIN Fentanyl Citrate 2,500 mcg in 250 mls @ 5 mls/hr 11/23/24 14:05 11/23/24 14:10 Fentanyl 2,500 Mcg/Ns 250 Ml IV CONT 50 mcg/hr .Q50H TAMICA 5 mls/hr Administration Protocol 50 MCG/HR Ipratropium [place] 0.5 mg 11/23/24 14:00 Ipratropium Br 0.02% Inh Soln 0.5 Mg/2.5 Ml Vial INHALATION Q6HRT TAMICA Levalbuterol HCl 0.63 mg 11/23/24 14:00 Levalbuterol Neb 1.25 Mg/3 Ml INHALATION Q6HRT TAMICA Morphine Sulfate 2 mg 11/20/24 21:22 Morphine Sulfate (*Crx) 2 Mg/Ml Inj IV PUSH Q2H PRN Breakthrough Pain Rated 4-6 or NPO Morphine Sulfate 4 mg 11/20/24 21:22 11/23/24 00:58 Morphine Sulfate (*Crx) 4 Mg/Ml Inj IV PUSH 4 mg Q2H PRN Administration Breakthrough Pain Rated 7-10 or NPO Multi-Ingred Cream/Lotion/Oil/Oint 1 applic 11/23/24 21:00 Mineral Oil/White Petrolatum Ointment EACH EYE Q12HR TAMICA Naloxone HCl 0.1 mg 11/20/24 21:20 Naloxone Hcl 0.4 Mg/Ml Vial IV PUSH Q2M PRN Opiate Reversal Ondansetron HCl 4 mg 11/20/24 16:39 11/22/24 21:54 Ondansetron Inj 4 Mg/2 Ml Vial IV PUSH 4 mg ONCE PRN Administration Nausea Ondansetron HCl 4 mg 11/20/24 21:20 11/21/24 11:31 Ondansetron Inj 4 Mg/2 Ml Vial IV PUSH 4 mg Q4H PRN Administration Nausea And Vomiting Pantoprazole Sodium 40 mg 11/24/24 09:00 Pantoprazole Sodium Iv 40 Mg Vial IV PUSH QAM TAMICA Sodium Chloride 10 ml 11/23/24 14:00 11/23/24 14:09 Central Line Flush IV PUSH 10 ml Q8HR TAMICA Administration Sodium Chloride 10 ml 11/23/24 13:39 Central Line Flush IV PUSH PRN PRN with TPN bag changes Sodium Chloride 20 ml 11/23/24 13:39 Central Line Flush IV PUSH PRN PRN after blood draws Radiology Results: ITS Impressions Chest CTA 11/23/24 05:53 IMPRESSION: 1. Free intraperitoneal air in the upper abdomen. Correlate for recent surgery. In the absence of known surgery this is most likely secondary to bowel perforation. Clinically correlate. 2: No large central pulmonary embolism. Limited evaluation of the secondary and tertiary pulmonary arteries. 3: Small right pleural effusion. Dependent atelectasis. 4: Ascites. Venous Doppler Study 11/23/24 09:56 Impression: No evidence of deep venous thrombosis Abdomen/Pelvis CT 11/23/24 13:00 IMPRESSION: 1. Increasing free intraperitoneal air 11/22/2024, suspicious for bowel leak. Increasing fluid in the mesentery with ascites involving the perihepatic space. No discrete abscess identified. Consider correlation with contrast-enhanced CT abdomen. 2: Increasing consolidation of the lower lobes which may represent atelectasis or pneumonia. 3: Developing small pleural effusions. Abdomen X-Ray 11/23/24 14:04 IMPRESSION: 1: NG tube tip in the stomach. 2: Bibasilar airspace disease, edema versus pneumonia. Chest X-Ray 11/23/24 14:04 IMPRESSION: 1: NG tube tip in the stomach. 2: Bibasilar airspace disease, edema versus pneumonia. Labs Labs: Laboratory Results - last 24 hr 11/22/24 11/23/24 11/23/24 23:42 06:09 07:09 WBC 4.2 L 10.7 H RBC 4.29 L 4.52 L Hgb 13.5 L 14.4 Hct 39.8 L 42.0 MCV 92.8 92.9 MCH 31.5 31.9 MCHC 33.9 34.3 RDW 12.2 12.3 Plt Count 199 245 MPV 8.8 9.0 Immature Gran % (Auto) 0.7 H Neut % (Auto) 83.7 H Lymph % (Auto) 9.9 L [place] % (Auto) 5.0 Eos % (Auto) 0.2 Baso % (Auto) 0.5 Lymph # (Auto) 0.42 L [place] # (Auto) 0.2 Eos # (Auto) 0.0 Baso # (Auto) 0.0 Abs Immat Gran (auto) 0.03 Absolute Neuts (auto) 3.6 Absolute Nucleated RBC 0.000 Nucleated RBC % 0.0 Puncture Site ABG pH ABG pCO2 ABG pO2 ABG PO2/FiO2 Ratio ABG HCO3 ABG O2 Saturation ABG O2 Content ABG Base Excess A-a Gradient Oxyhemoglobin Carboxyhemoglobin Methemoglobin Reduced Hemoglobin Total Hemoglobin O2 Delivery Device O2 Liters/Min FiO2 Sodium 137 137 Potassium 3.0 L 3.6 Chloride 108 H 106 Carbon Dioxide 22 18 L Anion Gap 7 13 H BUN 23 H 25 H Creatinine 0.87 1.09 Estim Creat Clear Calc 106 86 Estimated GFR > 60 > 60 Glucose 147 H 168 H Lactic Acid 3.7 H Calcium 8.8 8.7 Magnesium 1.8 Troponin I < 0.012 C-Reactive Protein 16.0 H NT-Pro-B Natriuret Pep 645 H 11/23/24 11/23/24 11/23/24 07:41 09:08 09:30 WBC RBC Hgb Hct MCV MCH MCHC RDW Plt Count MPV Immature Gran % (Auto) Neut % (Auto) Lymph % (Auto) [place] % (Auto) Eos % (Auto) Baso % (Auto) Lymph # (Auto) [place] # (Auto) Eos # (Auto) Baso # (Auto) Abs Immat Gran (auto) Absolute Neuts (auto) Absolute Nucleated RBC Nucleated RBC % Puncture Site Right brachial ABG pH 7.429 ABG pCO2 32.9 L ABG pO2 66.6 L ABG PO2/FiO2 Ratio 1.33 ABG HCO3 21.3 L ABG O2 Saturation 93.9 L ABG O2 Content 20.0 ABG Base Excess -2.1 A-a Gradient 252.9 Oxyhemoglobin 92.4 Carboxyhemoglobin 1.0 Methemoglobin 0.1 Reduced Hemoglobin 6.5 H Total Hemoglobin 15.4 O2 Delivery Device High flow nasal deisy O2 Liters/Min 10.0 FiO2 50 Sodium Potassium Chloride Carbon Dioxide Anion Gap BUN Creatinine Estim Creat Clear Calc Estimated GFR Glucose Lactic Acid 3.5 H Calcium Magnesium Troponin I < 0.012 C-Reactive Protein NT-Pro-B Natriuret Pep Imaging Attestation: I personally reviewed and interpreted this imaging study as follows: (Both CT scans of the abdomen today) My impression: Increased free intraperitoneal air from CT earlier this morning Radiologist's impression: Same
[2024-11-23 14:49] LABS: Hematocrit 39.0 % (42.0-52.0); Hemoglobin 13.4 g/dL (14.0-18.0); Mean Corpuscular HGB Conc 34.4 g/dl (32-36); Mean Corpuscular Hemoglobin 32.3 pg (26-34); Mean Corpuscular Volume 94.0 fl (80-100); Platelet Count Result 241 k/mm3 (150-375); Red Blood Count 4.15 M/mm3 (4.6-6.20); White Blood Count 19.5 K/mm3 (4.5-10.0)
[2024-11-23 14:58] LABS: INR 1.2; Prothrombin Time 15.1 Seconds (11.1-14.7)
[2024-11-23 14:59] LABS: Partial Thromboplastin Time 31.3 Seconds (22.3-36.8)
--- NOTE | 2024-11-23 15:05 | WPDANESEPPF ---
Anes - Initial Pre Proc Eval Procedure: Operation Date: 11/20/24 16:30 Proposed Procedures p Laparoscopic Appendectomy - Rojelio Cortez MD Operation Date: 11/23/24 14:30 Proposed Procedures p Exploratory Laparotomy for Possible Bowel Perforation - Rojelio Cortez MD Date/Time: 11/23/24 15:05 Surgeon: Rojelio Cortez MD Pre Op Diagnosis: acute hypoxemic respiratory failure Patient Data Age: 54 Gender: M Height: 1.78 m Weight: 112.9 kg Last Vital Signs Temp 37.3 C 11/23/24 11:52 Pulse 125 H 11/23/24 14:10 Resp 24 H 11/23/24 14:10 BP 149/69 H 11/23/24 11:52 Pulse Ox 95 11/23/24 14:00 O2 Del Method Mechanical Ventilation 11/23/24 14:00 O2 Flow Rate 60 11/23/24 12:00 FiO2 100 11/23/24 14:00 Allergies Allergy/AdvReac Type Severity Reaction Status Date / Time No Known Allergies Allergy Unknown Verified 11/20/24 12:08 Home Medications ?Medication ?Instructions ?Recorded ?Confirmed ?Type tadalafil 5 mg tablet See Rx Instructions .Route 10/31/24 11/20/24 Rx .COMPLEX #90 tabs fluticasone propionate 93 1 spray intranasal Q12H 11/20/24 11/20/24 History mcg/actuation breath activated aerosol (Xhance) Laboratory Tests 11/22/24 11/23/24 11/23/24 23:42 06:09 07:09 WBC 4.2 L K/mm3 10.7 H K/mm3 (4.5-10.0) (4.5-10.0) RBC 4.29 L M/mm3 4.52 L M/mm3 (4.6-6.20) (4.6-6.20) Hgb 13.5 L g/dL 14.4 g/dL (14.0-18.0) (14.0-18.0) Hct 39.8 L % 42.0 % (42.0-52.0) (42.0-52.0) MCV 92.8 fl 92.9 fl (80-100) (80-100) MCH 31.5 pg 31.9 pg (26-34) (26-34) MCHC 33.9 g/dl 34.3 g/dl (32-36) (32-36) RDW 12.2 % 12.3 % (11.5-14.5) (11.5-14.5) Plt Count 199 k/mm3 245 k/mm3 (150-375) (150-375) MPV 8.8 fl 9.0 fl (7.4-10.4) (7.4-10.4) Immature Gran % (Auto) 0.7 H % (0-0.5) Neut % (Auto) 83.7 H % (45.5-73.1) Lymph % (Auto) 9.9 L % (18.3-44.2) [place] % (Auto) 5.0 % (2.6-8.5) Eos % (Auto) 0.2 % (0-4.4) Baso % (Auto) 0.5 % (0.2-1.2) Lymph # (Auto) 0.42 L K/mm3 (0.9-3.2) [place] # (Auto) 0.2 K/mm3 (0.1-0.6) Eos # (Auto) 0.0 K/mm3 (0-0.3) Baso # (Auto) 0.0 K/mm3 (0.0-0.1) Abs Immat Gran (auto) 0.03 K/mm3 (0.00-0.031) Absolute Neuts (auto) 3.6 K/mm3 (1.3-6.7) Absolute Nucleated RBC 0.000 K/mm3 (0.0-0.012) Nucleated RBC % 0.0 % (0.0-0.2) PT INR APTT Puncture Site ABG pH ABG pCO2 ABG pO2 ABG PO2/FiO2 Ratio ABG HCO3 ABG O2 Saturation ABG O2 Content ABG Base Excess A-a Gradient Oxyhemoglobin Carboxyhemoglobin Methemoglobin Reduced Hemoglobin Total Hemoglobin O2 Delivery Device O2 Liters/Min FiO2 Sodium 137 mmol/L 137 mmol/L (137-145) (137-145) Potassium 3.0 L mmol/L 3.6 mmol/L (3.4-5.0) (3.4-5.0) Chloride 108 H mmol/L 106 mmol/L (98-107) (98-107) Carbon Dioxide 22 mmol/L 18 L mmol/L (22-30) (22-30) Anion Gap 7 mmol/L 13 H mmol/L (4-12) (4-12) BUN 23 H mg/dL 25 H mg/dL (9-20) (9-20) Creatinine 0.87 mg/dL 1.09 mg/dL (0.7-1.3) (0.7-1.3) Estim Creat Clear Calc 106 ml/min 86 ml/min Estimated GFR > 60 > 60 (59 - ) (59 - ) Glucose 147 H mg/dL 168 H mg/dL (65-110) (65-110) Lactic Acid 3.7 H mmol/L (0.7-2.0) Calcium 8.8 mg/dL 8.7 mg/dL (8.4-10.2) (8.4-10.2) Phosphorus Magnesium 1.8 mg/dL (1.6-2.3) Total Bilirubin AST ALT Alkaline Phosphatase Total Creatine Kinase Troponin I < 0.012 ng/mL (0.000-0.034) C-Reactive Protein 16.0 H mg/dL (<1.0) NT-Pro-B Natriuret Pep 645 H pg/mL (19.9-100) Total Protein Albumin Triglycerides Lipase Blood Type Antibody Screen 11/23/24 11/23/24 11/23/24 07:41 09:08 09:30 WBC RBC Hgb Hct MCV MCH MCHC RDW Plt Count MPV Immature Gran % (Auto) Neut % (Auto) Lymph % (Auto) [place] % (Auto) Eos % (Auto) Baso % (Auto) Lymph # (Auto) [place] # (Auto) Eos # (Auto) Baso # (Auto) Abs Immat Gran (auto) Absolute Neuts (auto) Absolute Nucleated RBC Nucleated RBC % PT INR APTT Puncture Site Right brachial ABG pH 7.429 (7.350-7.450) ABG pCO2 32.9 L mmHg (35.0-45.0) ABG pO2 66.6 L mmHg (80.0-100.0) ABG PO2/FiO2 Ratio 1.33 % ABG HCO3 21.3 L mEq/l (22.0-26.0) ABG O2 Saturation 93.9 L % (95.0-100.0) ABG O2 Content 20.0 %vol (16.0-22.0) ABG Base Excess -2.1 mEq/l (+/-2.0) A-a Gradient 252.9 mmHg Oxyhemoglobin 92.4 % THb (90.0-100.0) Carboxyhemoglobin 1.0 % THb (0-2.0) Methemoglobin 0.1 %THb (0-1.5) Reduced Hemoglobin 6.5 H %THb (0-5.0) Total Hemoglobin 15.4 g/dL (12.0-18.0) O2 Delivery Device High flow nasal deisy O2 Liters/Min 10.0 LPM FiO2 50 % Sodium Potassium Chloride Carbon Dioxide Anion Gap BUN Creatinine Estim Creat Clear Calc Estimated GFR Glucose Lactic Acid 3.5 H mmol/L (0.7-2.0) Calcium Phosphorus Magnesium Total Bilirubin AST ALT Alkaline Phosphatase Total Creatine Kinase Troponin I < 0.012 ng/mL (0.000-0.034) C-Reactive Protein NT-Pro-B Natriuret Pep Total Protein Albumin Triglycerides Lipase Blood Type Antibody Screen 11/23/24 14:30 WBC Pending RBC Pending Hgb Pending Hct Pending MCV Pending MCH Pending MCHC Pending RDW Pending Plt Count Pending MPV Pending Immature Gran % (Auto) Pending Neut % (Auto) Pending Lymph % (Auto) Pending [place] % (Auto) Pending Eos % (Auto) Pending Baso % (Auto) Pending Lymph # (Auto) Pending [place] # (Auto) Pending Eos # (Auto) Pending Baso # (Auto) Pending Abs Immat Gran (auto) Pending Absolute Neuts (auto) Pending Absolute Nucleated RBC Pending Nucleated RBC % Pending PT 15.1 H Seconds (11.1-14.7) INR 1.2 APTT 31.3 Seconds (22.3-36.8) Puncture Site ABG pH ABG pCO2 ABG pO2 ABG PO2/FiO2 Ratio ABG HCO3 ABG O2 Saturation ABG O2 Content ABG Base Excess A-a Gradient Oxyhemoglobin Carboxyhemoglobin Methemoglobin Reduced Hemoglobin Total Hemoglobin O2 Delivery Device O2 Liters/Min FiO2 Sodium Pending Potassium Pending Chloride Pending Carbon Dioxide Pending Anion Gap Pending BUN Pending Creatinine Pending Estim Creat Clear Calc Pending Estimated GFR Pending Glucose Pending Lactic Acid Pending Calcium Pending Phosphorus Pending Magnesium Pending Total Bilirubin Pending AST Pending ALT Pending Alkaline Phosphatase Pending Total Creatine Kinase Pending Troponin I C-Reactive Protein Pending NT-Pro-B Natriuret Pep Total Protein Pending Albumin Pending Triglycerides Pending Lipase Pending Blood Type Pending Antibody Screen Pending Patient hx anesthesia problems: none Family hx anesthesia problems: none Results Review: All pre-operative results and documents have been reviewed as part of the pre-operative evaluation. [facility] Past Medical History Medical History Obstructive sleep apnea Anxiety disorder, unspecified Pure hypercholesterolemia Erectile dysfunction Umbilical hernia Closed right fibular fracture November 2024 Surgical History Surgical History Status post appendectomy (11/20/24) Due to perforated appendicitis with generalized peritonitis H/O colonoscopy October 2023, Dr Ronquillo Family History Family History Other Diabetes mellitus Social History Social History Social History: The patient is a former smoker. He drinks a couple of beers each night. He he denies history of illicit substance use. 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 He has a 13-year-old son. He denies illicit substance use. Code status: Full code Surrogate decision maker: Araceli Simms (sister) Smoking packs per day: 1 Smoking cigarettes per day: 20.0 Years smoked: 16 Smoking pack-years: 16.00 Smoking status: Former smoker Tobacco type: cigarettes Second hand tobacco smoke exposure: No Smoking end date: 05/04/05 Alcohol intake: current Drinks per week: 14 Alcohol use details: social Substance use: never Substance use type: does not use Do You Feel Safe in your Home?: Yes Lack of Transportation: No Lack of Food: Never True Current Housing: I Have Housing Concerned About Future Housing: No Difficulty Paying Gas/Electric Bills: No Difficulty Paying for Meds: No Currently Unemployed: No Education: Trade/Vocational Certificate Difficulty w/ Childcare or Family Care: No Living arrangements: with family Occupation/Education: occupation Gender identity (if verbalized by the patient): Male Sexual Orientation (if Verbalized by the Patient): Straight or Heterosexual Spiritual care concerns: No Anes - Eval Final PreProcedure Day of Procedure 11/23/24 15:05 Patient weight: obese Heart: tachycardia Lungs: decreased breath sounds Airway: other (intubated sedated) Neurological: other (sedated) Last oral intake: >/= 8 hours ASA classification: IV Emergent: yes Anesthetic plan: proceed Anesthesia type and monitoring: general ETT, standard monitoring and invasive monitoring arterial line Results Review: All pre-operative results and documents have been reviewed as part of the pre-operative evaluation. Informed Consent: The patient's anesthetic plan and its attendant risks and benefits were discussed with the patient/family/POA. Questions were solicited and answers provided to the satisfaction of the patient/family/POA.
--- NOTE | 2024-11-23 15:07 | P.PCNANE_ITS ---
Arterial Cath Proc Note Consent: Given emergent patient conditions, temporal constraints may have precluded informed consent. Time-Out: A pre-procedural Time-Out was completed immediately before starting the procedure and confirmed: Patient Identification, Site, Procedure, Patient Position and the Availability of Requisite Equipment. Procedure Note Patient position: supine Insertion site: left radial Method of insertion: surface landmarks Manager Environmental Affairs prep: sterile gloves, mask and hat Site prep: chlorahexadine Skin anesthesia: general anesthesia Gauge: 20 gauge Length (cm): 4.4 cm Closure/Dressing: antimicrobial disc and tegaderm Complications: None immediately noted/suspected.
[2024-11-23] MEDS: HYDROGEN PEROXIDE 3% TOPICAL SOLUTION 118 ML BOTTLE 20 ML IRRIGATION (15:14)
[2024-11-23 15:18] LABS: Band Neutrophils Percent 35 % (0-6); Lymphocytes Absolute Manual 1.56 K/mm3 (1.1-4.5); Lymphocytes Percent Manual 8.0 % (18-44); Metamyelocytes Percent 3 %; Monocytes Absolute Manual 1.36 K/mm3 (0.1-0.90); Monocytes Percent Manual 7 % (3-9); Neutrophils Absolute Manual 15.99 K/mm3 (1.3-6.7); Neutrophils Percent Manual 47 % (46-73); Total Cells Counted 100
[2024-11-23 15:19] LABS: Schistocytes None Seen
[2024-11-23 15:37] LABS: Triglycerides 697 mg/dL (<150)
[2024-11-23 15:48] LABS: Alanine Aminotransferase 36 U/L (6-50); Albumin Level 2.8 g/dL (3.5-5.1); Alkaline Phosphatase 83 U/L (38-126); Anion Gap 12 mmol/L (4-12); Aspartate Amino Transferase 43 U/L (17-59); Bilirubin,Total 1.5 mg/dL (0.2-1.3); Blood Urea Nitrogen 28 mg/dL (9-20); CRP > 9.0 mg/dL (<1.0); Calcium 8.0 mg/dL (8.4-10.2); Carbon Dioxide 18 mmol/L (22-30); Chloride 106 mmol/L (98-107); Creatine Kinase 233 U/L (55-170); Estimated CRCL calculation 93 ml/min; Estimated Glomerular Filt Rate > 60; Glucose 174 mg/dL (65-110); Lipase 69 U/L (23-300); Magnesium 1.6 mg/dL (1.6-2.3); Potassium 3.7 mmol/L (3.4-5.0); Sodium 136 mmol/L (137-145); Total Protein 5.6 g/dL (6.3-8.2)
--- NOTE | 2024-11-23 15:56 | S_PTH ---
PATIENT: Chris Calvillo LOC: ANH[facility] #:[id number] AGE/SX: 54/M ROOM: 201 RE11/20/[address]: Opal Wilkerson PA-C : 1970 BED: 01 DIS: 12/09/2024 SPEC #: [id number] RECD: 11/24/24 07:28 STATUS: KOBE RECollin #: [id number] TONI: 11/23/24 15:[address]: Rojelio Cortez DEPT: [facility] Surgical RECD BY: Page Kent ENTERED: 11/24/24 07:28 SP TYPE: Surgical OTHR DR: MD Natalie Sosa MD Shannon J. Hopen, DO Zohair H. Karmally, MD Tissues: A - Small Bowel Procedures: Hematoxylin and Eosin Stain Gross and Microscopic Level 5
--- NOTE | 2024-11-23 16:51 | P.PNIM_ITS ---
Progress Note: A&P Assessment and Plan (1) Acute hypoxic respiratory failure: Code(s): J96.01 - Acute respiratory failure with hypoxia Status: Acute (2) Status post appendectomy: Onset Date: 11/20/24 Code(s): Z90.49 - Acquired absence of other specified parts of digestive tract Status: Acute (3) Tachycardia: Code(s): R00.0 - Tachycardia, unspecified Status: Acute (4) Low serum bicarbonate: Code(s): R79.89 - Other specified abnormal findings of blood chemistry Status: Acute (5) Hepatic steatosis: Code(s): K76.0 - Fatty (change of) liver, not elsewhere classified Status: Acute (6) Closed right fibular fracture: Qualifiers: Encounter type: subsequent encounter Code(s): S82.401A - Unspecified fracture of shaft of right fibula, initial encounter for closed fracture Status: Acute Plan patient was taken to OR and had emergent exploratory laparotomy, ileocolic resec tion, patient was transferred to IMU, when I saw the patient he was complaining of severe abdominal pain, I repeat CT scan of the abdomen without contrast and discuss the case with the Consumer Services Consultant Dr. Lugo, who examined the patient and transferred to patient to ICU for close observation and management. appreciate assistance of the coat operator. Subjective Date/time seen: 11/23/24 16:51 Interval history: H&P-Narrative Patient is a developed acute hypoxic respiratory failure of uncertain etiology. The patient did at have significant drop in his white count from previous and is now leukopenic instead of having leukocytosis. He remains afebrile. He has been on routine DVT prophylaxis postop with Lovenox. 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 Patient went for stat CT of the chest which was negative for any large vessel PE but more peripheral exam was limited due to contrast timing and motion artifact. The patient is still having right-sided chest pain and has had rapid increase in oxygen requirement up to 10 L nasal cannula. Patient still remains significantly tachypneic and is struggling to maintain oxygen saturations of 92% on [address] patient on Airvo. ABG demonstrated mild respiratory alkalosis. I had initially ordered a dose of Lasix due to crackles on exam but further laboratory findings demonstrated lactic acidosis in a low serum bicarb. The patient's mucous membranes are dry his lips are peeling. He appears more intervascular volume depleted despite nursing reporting that the patient has drinks 5-6 L of water a day or more and receiving IV fluid hydration. According to the cumulative fluid summary the patient is about 4.5 L positive for admission. Patient has remained on Zosyn since admission. CT of the abdomen pelvis demonstrated stable postoperative findings. It Is unclear if the patient is developing sepsis verses, possible ARDS, pulmonary edema seems less likely given lack of findings on imaging. Stat troponin has been ordered. Will repeat EKG. Will check cheetah score is see if patient is fluid responsive. And check echocardiogram to evaluate cardiac structure and function. Electrolyte panel did demonstrate mild hypokalemia. Will check magnesium level and replace if needed. Will give 40 mEq potassium chloride rider. Given poor contrast timing on CTA will obtain lower extremity Dopplers to rule out DVT. patient was taken to OR and had emergent exploratory laparotomy, ileocolic resection, patient was transferred to IMU, when I saw the patient he was complaining of severe abdominal pain, I repeat CT scan of the abdomen without contrast and discuss the case with the Consumer Services Consultant Dr. Lugo, who examined the patient and transferred to patient to ICU for close observation and management. appreciate assistance of the coat operator. Review of Systems Review of Systems: All systems reviewed & are unremarkable except as noted in HPI and below Exam Narrative: Patient appears in pain Patient is comfortable, NAD HEENT: eyes are clear and none icteric LUNGS:CTA HEART: RR S1S2 ABD: BS+, distended and tender Lower extremities: no edema SKIN: nonjaundiced Neuro: grossly intact. Objective Data Vital Signs Vital Signs: Vital Signs - 24 hr 11/22/24 20:00 11/22/24 21:16 11/22/24 23:17 Temperature 37.1 C 36.9 C Pulse Rate 106 H 106 H 131 H Respiratory Rate 18 20 24 H Blood Pressure 148/99 H 126/74 Pulse Oximetry 95 93 92 Oxygen Delivery Room Air Oxygen Flow Rate Fraction of Inspired Oxygen 11/22/24 23:20 11/23/24 01:00 11/23/24 01:00 Temperature Pulse Rate 132 H 122 H 122 H Respiratory Rate 18 20 20 Blood Pressure Pulse Oximetry 95 93 93 Oxygen Delivery Room Air Room Air Oxygen Flow Rate Fraction of Inspired Oxygen 11/23/24 04:15 11/23/24 04:34 11/23/24 06:23 Temperature 36.5 C Pulse Rate 146 H 146 H 130 H Respiratory Rate 24 H 24 H 24 H Blood Pressure 116/88 Pulse Oximetry 88 L 88 L 92 Oxygen Delivery Room Air High Flow Therapy with Na Oxygen Flow Rate 10 Fraction of Inspired Oxygen 11/23/24 06:26 11/23/24 07:35 11/23/24 07:55 Temperature 36.5 C Pulse Rate 130 H 124 H 127 H Respiratory Rate 20 20 Blood Pressure 115/73 Pulse Oximetry 94 94 Oxygen Delivery High Flow Nasal Cannula Oxygen Flow Rate 10 Fraction of Inspired Oxygen 11/23/24 08:00 11/23/24 08:00 11/23/24 08:02 Temperature Pulse Rate 123 H 122 H Respiratory Rate 24 H Blood Pressure Pulse Oximetry 91 95 Oxygen Delivery High Flow Therapy with Na Oxygen Flow Rate 70 Fraction of Inspired Oxygen 60 11/23/24 09:00 11/23/24 10:00 11/23/24 11:35 Temperature Pulse Rate 115 H 112 H Respiratory Rate 24 H Blood Pressure Pulse Oximetry 93 Oxygen Delivery High Flow Therapy with Na Oxygen Flow Rate 60 Fraction of Inspired Oxygen 70 11/23/24 11:38 11/23/24 11:49 11/23/24 11:52 Temperature 37.3 C Pulse Rate 112 H 120 H 127 H Respiratory Rate 24 H 20 24 H Blood Pressure 149/69 H Pulse Oximetry 97 98 Oxygen Delivery High Flow Therapy with Na Oxygen Flow Rate 70 Fraction of Inspired Oxygen 60 11/23/24 12:00 11/23/24 12:00 11/23/24 13:42 Temperature Pulse Rate 121 H Respiratory Rate Blood Pressure Pulse Oximetry 90 98 Oxygen Delivery High Flow Therapy with Na Mechanical Ventilation Oxygen Flow Rate 60 Fraction of Inspired Oxygen 70 100 11/23/24 13:52 11/23/24 14:00 11/23/24 14:00 Temperature Pulse Rate 106 H 124 H 121 H Respiratory Rate 24 H Blood Pressure Pulse Oximetry 95 Oxygen Delivery Mechanical Ventilation Oxygen Flow Rate Fraction of Inspired Oxygen 100 11/23/24 14:10 Temperature Pulse Rate 125 H Respiratory Rate 24 H Blood Pressure Pulse Oximetry Oxygen Delivery Oxygen Flow Rate Fraction of Inspired Oxygen Intake/Output Intake/Output: Intake & Output 11/20/24 11/21/24 11/22/24 11/23/24 23:59 23:59 23:59 23:59 Intake Total 1200 2640 4435 1940 Output Total 130 1885 2935 500 Balance 9328 280 3635 1440 Meds/Results Medications: Active Medications Generic Name Dose Route Start Last Admin Trade Name Freq PRN Reason Stop Dose Admin Acetaminophen 650 mg 11/22/24 11:10 11/23/24 10:04 Acetaminophen 325 Mg Tablet PO 650 mg Q4H PRN Administration Mild Pain (1-3) or Fever Hydrocodone Bitart/Acetaminophen 1 tab 11/22/24 11:10 Hydrocodone/Acetaminophen (*Crx) 5-325 Mg Tablet PO Q4H PRN Pain Rated 4-6 Hydrocodone Bitart/Acetaminophen 1 tab 11/22/24 11:10 11/22/24 22:01 Hydrocodone/Acetaminophen (*Crx) 10-325 Mg Tablet PO 1 tab Q6H PRN Administration Pain Rated 7-10 Enoxaparin Sodium 40 mg 11/21/24 09:00 11/23/24 10:04 Enoxaparin 40 Mg/0.4 Ml Syringe SUB-Q 40 mg DAILY TAMICA Administration Famotidine 20 mg 11/20/24 21:25 11/23/24 10:04 Famotidine 20 Mg/2 Ml Vial IV PUSH 20 mg Q12HR TAMICA Administration Fentanyl Citrate 25 mcg 11/20/24 16:39 Fentanyl Citrate Inj (*Crx) 100 Mcg/2 Ml Vial IV PUSH Q2M PRN Pain Fentanyl Citrate 25 mcg 11/23/24 15:09 Fentanyl Citrate Inj (*Crx) 100 Mcg/2 Ml Vial IV PUSH Q2M PRN Pain Piperacillin Sod/Tazobactam 50 mls @ 100 mls/hr 11/21/24 00:00 11/23/24 14:14 Sod 3.375 gm/ Sodium Chloride IVPB 100 mls/hr Q6H TAMICA Administration Ibuprofen 800 mg in 200 mls @ 400 mls/hr 11/20/24 21:23 11/22/24 21:30 Caldolor 800 Mg/200 Ml IVPB Infused Q6H PRN Infusion Breakthrough Pain Rated 1-3 or NPO Propofol 100 mls @ 10.161 mls/hr 11/23/24 13:45 11/23/24 13:52 Diprivan IV CONT 5 mcg/kg/min .Q9H51M TAMICA 3.39 mls/hr Administration Protocol 15 MCG/KG/MIN Fentanyl Citrate 2,500 mcg in 250 mls @ 5 mls/hr 11/23/24 14:05 11/23/24 14:10 Fentanyl 2,500 Mcg/Ns 250 Ml IV CONT 50 mcg/hr .Q50H TAMICA 5 mls/hr Administration Protocol 50 MCG/HR Lactated Ringer's 1,000 mls @ 30 mls/hr 11/23/24 15:10 Lr - Lactated Ringers Iv IV CONT .Q24H [facility] Ipratropium [place] 0.5 mg 11/23/24 14:00 11/23/24 14:33 Ipratropium Br 0.02% Inh Soln 0.5 Mg/2.5 Ml Vial INHALATION Not Given Q6HRT [facility] Levalbuterol HCl 0.63 mg 11/23/24 14:00 11/23/24 14:33 Levalbuterol Neb 1.25 Mg/3 Ml INHALATION Not Given Q6HRT [facility] Morphine Sulfate 2 mg 11/20/24 21:22 Morphine Sulfate (*Crx) 2 Mg/Ml Inj IV PUSH Q2H PRN Breakthrough Pain Rated 4-6 or NPO Morphine Sulfate 4 mg 11/20/24 21:22 11/23/24 00:58 Morphine Sulfate (*Crx) 4 Mg/Ml Inj IV PUSH 4 mg Q2H PRN Administration Breakthrough Pain Rated 7-10 or NPO Multi-Ingred Cream/Lotion/Oil/Oint 1 applic 11/23/24 21:00 Mineral Oil/White Petrolatum Ointment EACH EYE Q12HR [facility] Naloxone HCl 0.1 mg 11/20/24 21:20 Naloxone Hcl 0.4 Mg/Ml Vial IV PUSH Q2M PRN Opiate Reversal Ondansetron HCl 4 mg 11/20/24 16:39 11/22/24 21:54 Ondansetron Inj 4 Mg/2 Ml Vial IV PUSH 4 mg ONCE PRN Administration Nausea Ondansetron HCl 4 mg 11/20/24 21:20 11/21/24 11:31 Ondansetron Inj 4 Mg/2 Ml Vial IV PUSH 4 mg Q4H PRN Administration Nausea And Vomiting Ondansetron HCl 4 mg 11/23/24 15:09 Ondansetron Inj 4 Mg/2 Ml Vial IV PUSH ONCE PRN Nausea Pantoprazole Sodium 40 mg 11/24/24 09:00 Pantoprazole Sodium Iv 40 Mg Vial IV PUSH QAM TAMICA Sodium Chloride 10 ml 11/23/24 14:00 11/23/24 14:09 Central Line Flush IV PUSH 10 ml Q8HR TAMICA Administration Sodium Chloride 10 ml 11/23/24 13:39 Central Line Flush IV PUSH PRN PRN with TPN bag changes Sodium Chloride 20 ml 11/23/24 13:39 Central Line Flush IV PUSH PRN PRN after blood draws Radiology Results: ITS Impressions Chest CTA 11/23/24 05:53 IMPRESSION: 1. Free intraperitoneal air in the upper abdomen. Correlate for recent surgery. In the absence of known surgery this is most likely secondary to bowel perforation. Clinically correlate. 2: No large central pulmonary embolism. Limited evaluation of the secondary and tertiary pulmonary arteries. 3: Small right pleural effusion. Dependent atelectasis. 4: Ascites. Venous Doppler Study 11/23/24 09:56 Impression: No evidence of deep venous thrombosis Abdomen/Pelvis CT 11/23/24 13:00 IMPRESSION: 1. Increasing free intraperitoneal air 11/22/2024, suspicious for bowel leak. Increasing fluid in the mesentery with ascites involving the perihepatic space. No discrete abscess identified. Consider correlation with contrast-enhanced CT abdomen. 2: Increasing consolidation of the lower lobes which may represent atelectasis or pneumonia. 3: Developing small pleural effusions. Abdomen X-Ray 11/23/24 14:04 IMPRESSION: 1: NG tube tip in the stomach. 2: Bibasilar airspace disease, edema versus pneumonia. Chest X-Ray 11/23/24 14:04 IMPRESSION: 1: NG tube tip in the stomach. 2: Bibasilar airspace disease, edema versus pneumonia. Labs Labs: Laboratory Results - last 24 hr 11/22/24 11/23/24 11/23/24 23:42 06:09 07:09 WBC 4.2 L 10.7 H RBC 4.29 L 4.52 L Hgb 13.5 L 14.4 Hct 39.8 L 42.0 MCV 92.8 92.9 MCH 31.5 31.9 MCHC 33.9 34.3 RDW 12.2 12.3 Plt Count 199 245 MPV 8.8 9.0 Immature Gran % (Auto) 0.7 H Neut % (Auto) 83.7 H Lymph % (Auto) 9.9 L [place] % (Auto) 5.0 Eos % (Auto) 0.2 Baso % (Auto) 0.5 Lymph # (Auto) 0.42 L [place] # (Auto) 0.2 Eos # (Auto) 0.0 Baso # (Auto) 0.0 Abs Immat Gran (auto) 0.03 Absolute Neuts (auto) 3.6 Absolute Nucleated RBC 0.000 Total Counted Neutrophils % (Manual) Band Neutrophils % Lymphocytes % (Manual) Monocytes % (Manual) Metamyelocytes % Nucleated RBC % 0.0 Abs Neuts (Manual) Abs Lymphs (Manual) Abs Monocytes (Manual) Platelet Estimate Clumped Platelets Schistocytes PT INR APTT Puncture Site ABG pH ABG pCO2 ABG pO2 ABG PO2/FiO2 Ratio ABG HCO3 ABG O2 Saturation ABG O2 Content ABG Base Excess A-a Gradient Oxyhemoglobin Carboxyhemoglobin Methemoglobin Reduced Hemoglobin Total Hemoglobin O2 Delivery Device O2 Liters/Min FiO2 Sodium 137 137 Potassium 3.0 L 3.6 Chloride 108 H 106 Carbon Dioxide 22 18 L Anion Gap 7 13 H BUN 23 H 25 H Creatinine 0.87 1.09 Estim Creat Clear Calc 106 86 Estimated GFR > 60 > 60 Glucose 147 H 168 H Lactic Acid 3.7 H Calcium 8.8 8.7 Phosphorus Magnesium 1.8 Total Bilirubin AST ALT Alkaline Phosphatase Total Creatine Kinase Troponin I < 0.012 C-Reactive Protein 16.0 H NT-Pro-B Natriuret Pep 645 H Total Protein Albumin Triglycerides Lipase Blood Type Antibody Screen 11/23/24 11/23/24 11/23/24 07:41 09:08 09:30 WBC RBC Hgb Hct MCV MCH MCHC RDW Plt Count MPV Immature Gran % (Auto) Neut % (Auto) Lymph % (Auto) [place] % (Auto) Eos % (Auto) Baso % (Auto) Lymph # (Auto) [place] # (Auto) Eos # (Auto) Baso # (Auto) Abs Immat Gran (auto) Absolute Neuts (auto) Absolute Nucleated RBC Total Counted Neutrophils % (Manual) Band Neutrophils % Lymphocytes % (Manual) Monocytes % (Manual) Metamyelocytes % Nucleated RBC % Abs Neuts (Manual) Abs Lymphs (Manual) Abs Monocytes (Manual) Platelet Estimate Clumped Platelets Schistocytes PT INR APTT Puncture Site Right brachial ABG pH 7.429 ABG pCO2 32.9 L ABG pO2 66.6 L ABG PO2/FiO2 Ratio 1.33 ABG HCO3 21.3 L ABG O2 Saturation 93.9 L ABG O2 Content 20.0 ABG Base Excess -2.1 A-a Gradient 252.9 Oxyhemoglobin 92.4 Carboxyhemoglobin 1.0 Methemoglobin 0.1 Reduced Hemoglobin 6.5 H Total Hemoglobin 15.4 O2 Delivery Device High flow nasal deisy O2 Liters/Min 10.0 FiO2 50 Sodium Potassium Chloride Carbon Dioxide Anion Gap BUN Creatinine Estim Creat Clear Calc Estimated GFR Glucose Lactic Acid 3.5 H Calcium Phosphorus Magnesium Total Bilirubin AST ALT Alkaline Phosphatase Total Creatine Kinase Troponin I < 0.012 C-Reactive Protein NT-Pro-B Natriuret Pep Total Protein Albumin Triglycerides Lipase Blood Type Antibody Screen 11/23/24 14:30 WBC 19.5 H RBC 4.15 L Hgb 13.4 L Hct 39.0 L MCV 94.0 MCH 32.3 MCHC 34.4 RDW 12.4 Plt Count 241 MPV 9.6 Immature Gran % (Auto) Not Reportable Neut % (Auto) Not Reportable Lymph % (Auto) Not Reportable [place] % (Auto) Not Reportable Eos % (Auto) Not Reportable Baso % (Auto) Not Reportable Lymph # (Auto) Not Reportable [place] # (Auto) Not Reportable Eos # (Auto) Not Reportable Baso # (Auto) Not Reportable Abs Immat Gran (auto) Not Reportable Absolute Neuts (auto) Not Reportable Absolute Nucleated RBC Not Reportable Total Counted 100 Neutrophils % (Manual) 47 Band Neutrophils % 35 H Lymphocytes % (Manual) 8.0 L Monocytes % (Manual) 7 Metamyelocytes % 3 Nucleated RBC % Not Reportable Abs Neuts (Manual) 15.99 H Abs Lymphs (Manual) 1.56 Abs Monocytes (Manual) 1.36 H Platelet Estimate Adequate Clumped Platelets Present Schistocytes None seen PT 15.1 H INR 1.2 APTT 31.3 Puncture Site ABG pH ABG pCO2 ABG pO2 ABG PO2/FiO2 Ratio ABG HCO3 ABG O2 Saturation ABG O2 Content ABG Base Excess A-a Gradient Oxyhemoglobin Carboxyhemoglobin Methemoglobin Reduced Hemoglobin Total Hemoglobin O2 Delivery Device O2 Liters/Min FiO2 Sodium 136 L Potassium 3.7 Chloride 106 Carbon Dioxide 18 L Anion Gap 12 BUN 28 H Creatinine 1.00 Estim Creat Clear Calc 93 Estimated GFR > 60 Glucose 174 H Lactic Acid 3.5 H Calcium 8.0 L Phosphorus 5.0 H Magnesium 1.6 Total Bilirubin 1.5 H AST 43 ALT 36 Alkaline Phosphatase 83 Total Creatine Kinase 233 H Troponin I C-Reactive Protein > 9.0 H NT-Pro-B Natriuret Pep Total Protein 5.6 L Albumin 2.8 L Triglycerides 697 H Lipase 69 Blood Type A Positive Antibody Screen Negative Quality VTE Prophylaxis VTE prophylaxis: pharmacologic ordered (Lovenox 40 mg subQ daily)
--- NOTE | 2024-11-23 17:21 | SUR.OPER ---
EBL 20
--- NOTE | 2024-11-23 17:46 | P.OP_ITS ---
Procedure Note - Detailed Date of Procedure 11/23/24 Pre-op Diagnosis Bowel perforation, sepsis Post-op Diagnosis Same Procedure Performed exploratory laparotomy, ileocolic resection Surgeon Rojelio Cortez MD Putty And Patch Worker Ivelisse Montes De Oca RN Anesthesia General Indications patient underwent attempted laparoscopic appendectomy converted to open appendectomy 3 days ago, 11/20/2024. He was doing well but last night developed chest and abdominal pain with hypoxemia. Evaluation for various medical causes were was negative. Initial CT scan of the abdomen was negative but a repeat CT showed increased intra-abdominal air. Patient is taken to surgery now for laparotomy for possible bowel perforation. Findings There was a 1 mm opening in the cecum about 2-1/2 cm from the appendiceal stump. This was the perforation. There was a lot of fibrin is exudate and enteric content in the abdomen. It was surprising that no enteric content was coming out of the SRINATH drain. Even though the perforation was relatively small, the area around the perforation looked as though it may have been injured as well. Ileocolic resection with hand-sewn 2 layer esiw-dc-foke but function all in the end anastomosis was performed. The wound was left open in anticipation of wound VAC therapy. Patient was tachycardic through the procedure but did not require any vasopressor agents. Patient Description of Procedure patient was taken to surgery and induced into general anesthesia. The previously placed wound fara were removed. The right lower quadrant SRINATH drain was removed. The abdomen is prepped and draped. The previous midline incision was reopened. As many loose sutures as could be found in the subcutaneous were removed. The fascial closure was a running closure and all of the PDS was removed. On entering the abdominal cavity, there was a collection of enteric content in the pelvis. This was noticed 1st. We suctioned this away and then gently the wall of the abdomen from the underlying contents. There was quite a bit of fibrin is inflammatory exudate on bowel surfaces and mesenteric surfaces. The areas this was loose were removed. We then mobilized the small intestine which was not difficult as the inflammatory adhesions were flimsy. When we were able to mobilize the cecum, it was easily seen that there was a small opening that was the source of the perforation. As mentioned above, this was about 2.5 cm from the intact appendiceal stump. A [place] 4-0 silk suture was used to occlude the opening to prevent further contamination on a temporary basis. I then further mobilized the area of the cecum and distal ileum. We also irrigated and suctioned the abdomen with warm saline. Regarding repair, I conferred with 2 of my partners who came to the operating room at my request. none of us felt that over-sewing this or some type of tangential resection of the cecum would be safe. I went ahead with an ileocolic resection. I mobilized more of the right colon by dividing lateral peritoneal attachments. I then took down adhesions around the distal ileum and ascending colon in anticipation of the resection. TLC 75 stapler was used to divide the distal ileum as well as the proximal ascending colon. The LigaSure was used to divide the intervening as enteric. I then placed the distal ileum and proximal ascending colon in a [id number] fashion. The posterior outer layer of 4-0 silk seromuscular interrupted suture were then placed. Noncrushing bowel clamps were then placed on the more distal ascending colon and the more proximal ileum. The distal ileum and then the proximal small intestine were opened with the cautery. Suction was used to avoid spillage. Bidirectional 4-0 chromic suture was used for the posterior inner layer which was running locking suture. For the corners and a anterior interval air, this was converted to a running inverting or [place] stitch. The 2 suture were tied together to finish the anterior inner layer. We then used interrupted 4-[address] the anterior outer layer and finished the anastomosis. All looked good. The bowel appeared quite healthy. We then set a bowel with further irrigation of the abdomen. I used a L of dilute peroxide saline mixture. I used this to irrigate and cleanse the entire abdominal cavity. Following this, another 4 L of warm saline was used to further dilute and remove bowel contamination. The nasogastric tube was checked and was in good position in the stomach. I ran the entire small bowel and recheck the anastomosis. The anastomosis was placed in the right colic gutter and then the small intestine was placed back in the abdomen in gentle S shaped curves. The omentum was positioned anteriorly over the bowel. The peritoneum was closed from the bottom of the incision up to the semicircular line. This was with 0 chromic. I then used 1. Looped PDS and closed the abdominal fascia in running fashion, tying in the midportion. The subcutaneous was then dressed with Betadine soaked vaginal packing. Multiple fluffs and ABDs were placed over the abdominal wound. Medipore tape was used to secure the dressing. The patient was kept intubated and transferred directly to the intensive care unit. Sponge and needle counts were correct x2. Estimated Blood Loss -20 Urine Output 200 Drains Yes ( Nasogastric tube, Mancini catheter) Packing Yes ( Betadine-soaked vaginal packing in the wound) Pathology Yes ( ileocolic resection with cecal perforation) Complications None Condition Critical Disposition ICU [facility] Billing Surgery - Charge Forward: Surgery Billing ( exploratory laparotomy for bowel perforation, ileocolic resection with anastomosis)
[2024-11-23 18:11] LABS: Alveolar/Arterial O2 Gradient 611.2 mmHg; Carboxyhemoglobin 1.1 % THb (0-2.0); Fractional Inspired Oxygen 100 %; HCO3 ABG 18.2 mEq/l (22.0-26.0); Methemoglobin ABG 0.2 %THb (0-1.5); Oxygen Content ABG 19.7 %vol (16.0-22.0); Oxygen Saturation ABG 91.2 % (95.0-100.0); PCO2 ABG 36.8 mmHg (35.0-45.0); PO2 ABG 65.0 mmHg (80.0-100.0); PO2 FiO2 Ratio Arterial Blood 0.65 %; Reduced Hemoglobin 9.0 %THb (0-5.0)
[2024-11-23 18:12] LABS: Arterial Blood Gas Tidal Volume 450 ml; Arterial Blood Gas Ventilator rate 24 /MIN; Site Drawn ARTLINE
--- NOTE | 2024-11-23 18:26 | PC.NURSE ---
Updated Dr Lugo on patient status after arriving back in ICU from OR. Updated MD on vital signs HR 133 O2 88%, RR 33, BP 99/66 ART line BP cuff 127/81.Notified MD of output of 100ml since saleh cath insertion. PT does have a slight temp at 100.5 Received order for 2 amp of bicarb, 1 LR bolus. Vent settings- increase peep to 10 and increase RR to 26. .
[2024-11-23] MEDS: SODIUM BICARBONATE 8.4% 50 MEQ/50 ML SYRINGE IV PUSH ×2 (18:41)
[2024-11-23] MEDS: IPRATROPIUM BR 0.02% INH SOLN 0.5 MG/2.5 ML VIAL INHALATION (19:16)
[2024-11-23] MEDS: PHENYLEPHRINE HCL INJ 50 MG in SODIUM CHLORIDE 0.9% IV 245 ML 12 ML IV CONT (19:42)
[2024-11-23] MEDS: PROPOFOL IV EMULSION 100 ML 23.71 MG IV CONT (21:00)
[2024-11-23 21:05] LABS: Alveolar/Arterial O2 Gradient 513.1 mmHg; Carboxyhemoglobin 0.5 % THb (0-2.0); Fractional Inspired Oxygen 100 %; HCO3 ABG 21.0 mEq/l (22.0-26.0); Methemoglobin ABG 0.2 %THb (0-1.5); Oxygen Content ABG 20.2 %vol (16.0-22.0); Oxygen Saturation ABG 99.1 % (95.0-100.0); PCO2 ABG 34.5 mmHg (35.0-45.0); PO2 ABG 165.4 mmHg (80.0-100.0); PO2 FiO2 Ratio Arterial Blood 1.65 %; Reduced Hemoglobin 0.9 %THb (0-5.0)
[2024-11-23 21:07] LABS: Modified Allen's Test Pass; Site Drawn ARTLINE
[2024-11-23 21:08] LABS: Arterial Blood Gas Tidal Volume 450 ml; Arterial Blood Gas Ventilator rate 26 /MIN
[2024-11-23] MEDS: VASOPRESSIN INJ 100 UNITS in DEXTROSE 5% 95 ML IV CONT (21:40)
[2024-11-23] MEDS: MINERAL OIL/WHITE PETROLATUM OINTMENT 1 APPLIC EACH EYE (22:09)
[2024-11-23] MEDS: MIDAZOLAM 100MG/NS 100ML(*CRX) 100 MG/100 ML BAG IV CONT (22:09)
[2024-11-23] MEDS: NOREPINEPHRINE 8 MG/D5W 250 ML 8 MG/250 ML BAG 9.38 MG IV CONT (23:35)
[2024-11-24] VITALS (47 sets, daily range): BP systolic 75–125; BP diastolic 5–85; PULSE 70–117; RESP 6–29; TEMP 38.3–38.6; O2SAT 90–99; BMI 35.6
[2024-11-24] MEDS: PHENYLEPHRINE HCL INJ 50 MG in SODIUM CHLORIDE 0.9% IV 245 ML 60 ML IV CONT
[2024-11-24] MEDS: PIPERACILLIN/TAZOBACTAM SOD 3.375 GM in SODIUM CHLORIDE 0.9% IV 50 ML 100 ML IVPB ×4 (00:21→17:51)
[2024-11-24] MEDS: IPRATROPIUM BR 0.02% INH SOLN 0.5 MG/2.5 ML VIAL INHALATION ×4 (01:11→20:19)
[2024-11-24] MEDS: PHENYLEPHRINE HCL INJ 50 MG in SODIUM CHLORIDE 0.9% IV 245 ML 42 ML IV CONT ×2 (04:00→15:38)
[2024-11-24 04:36] LABS: Alveolar/Arterial O2 Gradient 516.6 mmHg; Carboxyhemoglobin 0.5 % THb (0-2.0); Fractional Inspired Oxygen 100 %; HCO3 ABG 23.0 mEq/l (22.0-26.0); Methemoglobin ABG 0.1 %THb (0-1.5); Oxygen Content ABG 20.4 %vol (16.0-22.0); Oxygen Saturation ABG 99.1 % (95.0-100.0); PCO2 ABG 37.0 mmHg (35.0-45.0); PO2 ABG 159.4 mmHg (80.0-100.0); PO2 FiO2 Ratio Arterial Blood 1.59 %; Reduced Hemoglobin 0.8 %THb (0-5.0)
[2024-11-24 04:38] LABS: Arterial Blood Gas Ventilator rate 26 /MIN; Site Drawn ARTLINE
[2024-11-24 04:39] LABS: Arterial Blood Gas Tidal Volume 450 ml
[2024-11-24 05:15] LABS: Hematocrit 41.0 % (42.0-52.0); Hemoglobin 13.7 g/dL (14.0-18.0); Mean Corpuscular HGB Conc 33.4 g/dl (32-36); Mean Corpuscular Hemoglobin 31.8 pg (26-34); Mean Corpuscular Volume 95.1 fl (80-100); Platelet Count Result 283 k/mm3 (150-375); Red Blood Count 4.31 M/mm3 (4.6-6.20); White Blood Count 20.1 K/mm3 (4.5-10.0)
[2024-11-24 05:31] LABS: INR 1.3; Prothrombin Time 16.2 Seconds (11.1-14.7)
[2024-11-24 05:32] LABS: Partial Thromboplastin Time 31.8 Seconds (22.3-36.8)
[2024-11-24 06:06] LABS: Band Neutrophils Percent 7 % (0-6); Lymphocytes Absolute Manual 1.00 K/mm3 (1.1-4.5); Lymphocytes Percent Manual 5.0 % (18-44); Monocytes Absolute Manual 0.80 K/mm3 (0.1-0.90); Monocytes Percent Manual 4 % (3-9); Neutrophils Absolute Manual 18.29 K/mm3 (1.3-6.7); Neutrophils Percent Manual 84 % (46-73); Total Cells Counted 100
[2024-11-24 06:07] LABS: Schistocytes None Seen
[2024-11-24 06:15] LABS: Alanine Aminotransferase 33 U/L (6-50); Albumin Level 2.4 g/dL (3.5-5.1); Alkaline Phosphatase 92 U/L (38-126); Anion Gap 9 mmol/L (4-12); Aspartate Amino Transferase 43 U/L (17-59); Bilirubin,Total 1.7 mg/dL (0.2-1.3); Blood Urea Nitrogen 35 mg/dL (9-20); Calcium 7.8 mg/dL (8.4-10.2); Carbon Dioxide 22 mmol/L (22-30); Chloride 107 mmol/L (98-107); Estimated CRCL calculation 75 ml/min; Estimated Glomerular Filt Rate 60; Glucose 237 mg/dL (65-110); Magnesium 2.2 mg/dL (1.6-2.3); Potassium 4.0 mmol/L (3.4-5.0); Sodium 138 mmol/L (137-145); Total Protein 5.1 g/dL (6.3-8.2)
[2024-11-24] MEDS: CENTRAL LINE FLUSH 10 ML IV PUSH ×3 (06:39→21:22)
[2024-11-24] MEDS: LACTATED RINGERS 1,000 ML 999 ML IV CONT (07:31)
[2024-11-24] MEDS: ENOXAPARIN 40 MG/0.4 ML SYRINGE SUB-Q (09:23)
[2024-11-24] MEDS: MINERAL OIL/WHITE PETROLATUM OINTMENT 1 APPLIC EACH EYE ×2 (09:23→21:20)
[2024-11-24] MEDS: MICAFUNGIN SODIUM 100 MG in SODIUM CHLORIDE 0.9% IV 100 ML IVPB (09:23)
[2024-11-24] MEDS: PANTOPRAZOLE SODIUM IV 40 MG VIAL IV PUSH (09:23)
[2024-11-24] MEDS: LACTATED RINGERS 1,000 ML 100 ML IV CONT (09:28)
[2024-11-24] MEDS: INSULIN ASPART (*BKC) 100 UNITS/ML SUB-Q ×3 (10:02→21:20)
[2024-11-24] MEDS: PHENYLEPHRINE HCL INJ 50 MG in SODIUM CHLORIDE 0.9% IV 245 ML 54 ML IV CONT (10:21)
--- NOTE | 2024-11-24 11:03 | P.PNINT_ITS ---
Progress Note: A&P Assessment and Plan (1) Acute hypoxic respiratory failure: Code(s): J96.01 - Acute respiratory failure with hypoxia Status: Acute Assessment and Plan: Acute respiratory failure likely related to SIRS/sepsis -11/22: CTA chest: No large central PE, small right pleural effusion, dependent atelectasis, ascites, free intraperitoneal air in the upper abdomen correlate for some recent surgery -patient was initially placed on 10 L nasal cannula, now on high-flow therapy 60 L flow rate and 77% FiO2 -patient significantly tachypneic, breathing 40+ times a minute, with O2 side of 90-92% -11/23: Intubated in the ICU -chest x-ray and ABGs reviewed this morning, ventilator adjusted, wean FiO2 to maintain O2 sats greater than 92% -continue bronchodilators -sedated with fentanyl and Versed infusion, maintain RASS of -2 for now (2) Septic shock: Code(s): A41.9 - Sepsis, unspecified organism; R65.21 - Severe sepsis with septic shock Status: Acute Assessment and Plan: Patient POD #3, tachypneic with hypoxic respiratory failure, lactic acidosis, increasing WBC count, anion gap metabolic acidosis -initial lactic acids were elevated on 11/24/2023 when patient was brought to the ICU, adequately fluid-resuscitated before patient was taken to the OR -likely related to SIRS/severe sepsis secondary to ruptured appendicitis -11/22: CT scan of the abdomen and pelvis this morning showed postop changes consider the since surgery likely appendectomy, no abscess identified. Small pleural effusion with dependent atelectasis -11/23: Repeat CT scan of the abdomen and pelvis without contrast showed increasing free intraperitoneal air suspicious for bowel leak. Increasing fluid in the mesentery with ascites involving the perihepatic space. No discrete abscess identified. Increasing consolidation of the lower lobes which may represent atelectasis or pneumonia. Developing small pleural effusions -discussed CT results with surgeon, - 11/23: Exploratory laparotomy with ileocolic resection for bowel perforation (cecal perforation) with spillage of bowel contents in the abdominal cavity -currently on norepinephrine, Ruddy-Synephrine, vasopressin, will maintain MAP > 65 mmHg or SBP> 100 mmHg -started stressed to steroids -continue Zosyn (11/20) -started on micafungin (11/24) due to spillage of bowel contents secondary to bowel perforation in the abdominal cavity, and given that patient is febrile with a T-max of 101.3? (3) Metabolic acidosis: Code(s): E87.20 - Acidosis, unspecified Status: Acute Assessment and Plan: RESOLVED Patient developed metabolic acidosis likely related to lactic acidosis - will give additional IV fluids secondary to severe sepsis -continue urine output, renal function, electrolyte -lactic acid is normal -urine output has been adequate, Normal creatinine for now (4) Status post appendectomy: Onset Date: 11/20/24 Code(s): Z90.49 - Acquired absence of other specified parts of digestive tract Status: Acute Assessment and Plan: 11/20: Discussed with surgery, NG tube will be inserted due to abdominal distension 11/23: Exploratory laparotomy with ileocolic resection for bowel perforation (cecal perforation) with spillage of bowel contents in the abdominal cavity Treatment plans as above -pain control with fentanyl infusion Plan DVT prophylaxis: Lovenox Stress ulcer prophylaxis: Protonix Nutrition: NPO Code Status: Full code Critical Care Time Spent: 43 minutes Discussed with patient's sister GABRIELA Charles, updated her with patient's condition plan of care. She is aware that patient is on 3 blood pressure support medications, on mechanical ventilation. Urine output has been adequate, renal function is within normal limits, lactic acid levels have normalized, she is aware that the patient is still critical Due to a high probability of clinically significant, life threatening deteri oration, the patient required my highest level of preparedness to intervene emergently and I personally spent this critical care time directly and personally managing the patient. This critical care time included obtaining a history; examining the patient; pulse oximetry; ordering and review of studies; arranging urgent treatment with development of a management plan; evaluation of patient's response to treatment; frequent reassessment; and discussions with other providers. It was exclusive of separately billable procedures and treating other patients and teaching time. Please see Assessment and Plan section and the rest of the note for further information on patient assessment and treatment This dictation may have been done utilizing a voice recognition system. Attempts have been made to correct errors. However, there may be uncorrected grammatical, spelling, and recognitions errors present. Subjective Date/time seen: 11/24/24 11:03 Interval history: Reason for consult: Acute hypoxic respiratory failure requiring intubation and mechanical ventilation, status post appendicectomy 11/22/2024, septic shock 11/23: Exploratory laparotomy with ileocolic resection for bowel perforation (cecal perforation) with spillage of bowel contents in the abdominal cavity 11/24/2024: Patient seen and examined the ICU, remains intubated on CMV mode of ventilation, peep of 10, 100% FiO2. Sedated with fentanyl and Versed infusion. Patient was drinking his eyes follows simple commands. Remains on Levophed, Ruddy-Synephrine and vasopressin infusions for vasopressor support. Patient febrile with a T-max of 101.3?. Urine output has been adequate Review of Systems Review of Systems: ROS unobtainable: Yes unobtainable due to endotracheal tube, unobtainable due to medical condition and unobtainable due to mental status Exam Narrative: General: Intubated in singing in acute distress HEENT:? Pupils pinpoint and sluggish, sclera is clear Neck:? Supple Respiratory:? Coarse breath sounds bilaterally, decreased at bases, adequate air entry, no wheezing Cardiac:? S1-S2 is normal, normal sinus rhythm Abdomen:? Abdominal is soft, nondistended, midline incision with dressing in place, unable to hear any bowel sounds Extremities:? No edema, palpable pedal pulses, warm extremities Neuro:? Intubated, sedated, does not open his eyes or follow simple commands Skin:? Warm and dry Psych:? Unable to assess at this time Objective Data Vital Signs Vital Signs: Vital Signs - 24 hr 11/23/24 11:35 11/23/24 11:38 11/23/24 11:49 Temperature Pulse Rate 112 H 112 H 120 H Respiratory Rate 24 H 24 H 20 Blood Pressure Pulse Oximetry 97 Oxygen Delivery High Flow Therapy with Na Oxygen Flow Rate 70 Fraction of Inspired Oxygen 60 11/23/24 11:52 11/23/24 12:00 11/23/24 12:00 Temperature 99.2 F Pulse Rate 127 H 121 H Respiratory Rate 24 H Blood Pressure 149/69 H Pulse Oximetry 98 90 Oxygen Delivery High Flow Therapy with Na Oxygen Flow Rate 60 Fraction of Inspired Oxygen 70 11/23/24 13:42 11/23/24 13:52 11/23/24 14:00 Temperature Pulse Rate 106 H 124 H Respiratory Rate 24 H Blood Pressure Pulse Oximetry 98 95 Oxygen Delivery Mechanical Ventilation Mechanical Ventilation Oxygen Flow Rate Fraction of Inspired Oxygen 100 100 11/23/24 14:00 07/23/25 14:00 11/23/24 14:10 Temperature Pulse Rate 121 H 142 H 125 H Respiratory Rate 30 H 24 H Blood Pressure Pulse Oximetry Oxygen Delivery Oxygen Flow Rate Fraction of Inspired Oxygen 11/23/24 17:45 11/23/24 17:49 11/23/24 17:53 Temperature 101 F H Pulse Rate 136 H 143 H Respiratory Rate 30 H 33 H Blood Pressure 133/75 Pulse Oximetry 93 Oxygen Delivery Mechanical Ventilation Oxygen Flow Rate Fraction of Inspired Oxygen 100 11/23/24 17:54 11/23/24 18:00 11/23/24 18:00 Temperature Pulse Rate 143 H 140 H 140 H Respiratory Rate 33 H 33 H Blood Pressure Pulse Oximetry Oxygen Delivery Oxygen Flow Rate Fraction of Inspired Oxygen 11/23/24 18:00 11/23/24 18:02 11/23/24 18:05 Temperature Pulse Rate 141 H 140 H 142 H Respiratory Rate 35 H 33 H 37 H Blood Pressure 117/74 Pulse Oximetry 90 Oxygen Delivery Oxygen Flow Rate Fraction of Inspired Oxygen 11/23/24 18:32 11/23/24 18:37 11/23/24 18:38 Temperature Pulse Rate 138 H 138 H Respiratory Rate 39 H 36 H Blood Pressure Pulse Oximetry Oxygen Delivery Mechanical Ventilation Oxygen Flow Rate Fraction of Inspired Oxygen 100 11/23/24 18:51 11/23/24 19:00 11/23/24 19:02 Temperature 100.2 F H Pulse Rate 125 H 120 H 120 H Respiratory Rate 30 H 28 H Blood Pressure 90/56 L Pulse Oximetry 92 92 Oxygen Delivery Mechanical Ventilation Oxygen Flow Rate Fraction of Inspired Oxygen 100 11/23/24 19:17 11/23/24 19:42 11/23/24 20:00 Temperature Pulse Rate 114 H 111 H 107 H Respiratory Rate 29 H Blood Pressure 80/47 L 81/49 L Pulse Oximetry Oxygen Delivery Oxygen Flow Rate Fraction of Inspired Oxygen 11/23/24 20:00 11/23/24 20:00 11/23/24 20:00 Temperature Pulse Rate 107 H 107 H 99 Respiratory Rate 26 H 26 H 26 H Blood Pressure Pulse Oximetry 98 Oxygen Delivery Mechanical Ventilation Oxygen Flow Rate Fraction of Inspired Oxygen 100 11/23/24 20:00 11/23/24 20:00 11/23/24 20:12 Temperature Pulse Rate 106 H 98 Respiratory Rate 26 H Blood Pressure Pulse Oximetry Oxygen Delivery Oxygen Flow Rate Fraction of Inspired Oxygen 100 11/23/24 20:15 11/23/24 20:30 11/23/24 20:45 Temperature Pulse Rate 105 H 105 H 103 H Respiratory Rate Blood Pressure 79/50 L 84/51 L 84/50 L Pulse Oximetry Oxygen Delivery Oxygen Flow Rate Fraction of Inspired Oxygen 11/23/24 21:00 11/23/24 21:09 11/23/24 21:22 Temperature Pulse Rate 98 99 99 Respiratory Rate 26 H Blood Pressure 89/53 L Pulse Oximetry 98 Oxygen Delivery Mechanical Ventilation Oxygen Flow Rate Fraction of Inspired Oxygen 100 11/23/24 21:40 11/23/24 22:00 11/23/24 22:00 Temperature 99.3 F Pulse Rate 94 984 H 94 Respiratory Rate 26 H Blood Pressure 79/48 L 80/48 L Pulse Oximetry 98 Oxygen Delivery Oxygen Flow Rate Fraction of Inspired Oxygen 11/23/24 22:00 11/23/24 22:00 11/23/24 22:00 Temperature Pulse Rate 97 97 97 Respiratory Rate 26 H 26 H Blood Pressure 79/48 L Pulse Oximetry Oxygen Delivery Oxygen Flow Rate Fraction of Inspired Oxygen 11/23/24 22:00 11/23/24 22:09 11/23/24 22:30 Temperature Pulse Rate 97 99 93 Respiratory Rate 26 H 26 H Blood Pressure 79/49 L Pulse Oximetry Oxygen Delivery Oxygen Flow Rate Fraction of Inspired Oxygen 11/23/24 22:41 11/23/24 23:00 11/23/24 23:00 Temperature 101.2 F H Pulse Rate 95 90 90 Respiratory Rate 26 H 26 H Blood Pressure 83/52 L Pulse Oximetry 98 97 Oxygen Delivery Mechanical Ventilation Oxygen Flow Rate Fraction of Inspired Oxygen 100 11/23/24 23:30 11/23/24 23:35 11/23/24 23:35 Temperature 101.4 F H Pulse Rate 89 89 89 Respiratory Rate 26 H 26 H Blood Pressure 77/49 L 77/49 L Pulse Oximetry 98 Oxygen Delivery Oxygen Flow Rate Fraction of Inspired Oxygen 11/23/24 23:55 11/23/24 23:56 11/24/24 00:00 Temperature Pulse Rate 89 87 Respiratory Rate 26 H Blood Pressure Pulse Oximetry 98 Oxygen Delivery Mechanical Ventilation Oxygen Flow Rate Fraction of Inspired Oxygen 100 100 11/24/24 00:00 11/24/24 00:00 11/24/24 00:00 Temperature Pulse Rate 87 87 87 Respiratory Rate Blood Pressure 77/49 L 85/53 L 85/53 L Pulse Oximetry Oxygen Delivery Oxygen Flow Rate Fraction of Inspired Oxygen 11/24/24 00:00 11/24/24 00:00 11/24/24 00:00 Temperature Pulse Rate 87 87 87 Respiratory Rate 26 H 26 H Blood Pressure 85/53 L Pulse Oximetry Oxygen Delivery Oxygen Flow Rate Fraction of Inspired Oxygen 11/24/24 00:00 11/24/24 01:00 11/24/24 01:12 Temperature Pulse Rate 98 87 85 Respiratory Rate 29 H Blood Pressure 87/54 L 97/56 L Pulse Oximetry Oxygen Delivery Oxygen Flow Rate Fraction of Inspired Oxygen 11/24/24 01:17 11/24/24 02:00 11/24/24 02:00 Temperature Pulse Rate 88 84 84 Respiratory Rate Blood Pressure 95/53 L Pulse Oximetry 98 Oxygen Delivery Mechanical Ventilation Oxygen Flow Rate Fraction of Inspired Oxygen 100 11/24/24 02:00 11/24/24 02:00 11/24/24 02:00 Temperature Pulse Rate 84 84 84 Respiratory Rate 26 H 26 H Blood Pressure 94/53 L Pulse Oximetry Oxygen Delivery Oxygen Flow Rate Fraction of Inspired Oxygen 11/24/24 02:00 11/24/24 02:00 11/24/24 03:21 Temperature 101.4 F H Pulse Rate 84 84 84 Respiratory Rate 26 H 26 H Blood Pressure 94/56 L 93/56 L Pulse Oximetry 97 98 Oxygen Delivery Mechanical Ventilation Oxygen Flow Rate Fraction of Inspired Oxygen 100 11/24/24 03:23 11/24/24 03:23 11/24/24 04:00 Temperature 101.2 F H Pulse Rate 84 83 Respiratory Rate 18 Blood Pressure 96/53 L Pulse Oximetry 99 Oxygen Delivery Oxygen Flow Rate Fraction of Inspired Oxygen 100 11/24/24 04:00 11/24/24 04:00 11/24/24 04:00 Temperature Pulse Rate 83 83 83 Respiratory Rate 26 H Blood Pressure 96/53 L 96/53 L Pulse Oximetry Oxygen Delivery Oxygen Flow Rate Fraction of Inspired Oxygen 11/24/24 04:00 11/24/24 04:00 11/24/24 04:24 Temperature Pulse Rate 83 83 86 Respiratory Rate 26 H Blood Pressure 96/53 L Pulse Oximetry 97 Oxygen Delivery Mechanical Ventilation Oxygen Flow Rate Fraction of Inspired Oxygen 100 11/24/24 05:00 11/24/24 05:56 11/24/24 06:00 Temperature 101 F H Pulse Rate 84 108 H 108 H Respiratory Rate 26 H Blood Pressure 96/5 L 92/55 L Pulse Oximetry 96 Oxygen Delivery Oxygen Flow Rate Fraction of Inspired Oxygen 11/24/24 07:34 11/24/24 08:00 11/24/24 08:00 Temperature 101.3 F H Pulse Rate 117 H 93 Respiratory Rate 25 H Blood Pressure 94/58 L 112/75 Pulse Oximetry 97 Oxygen Delivery Oxygen Flow Rate Fraction of Inspired Oxygen 60 11/24/24 08:00 11/24/24 08:00 11/24/24 08:58 Temperature Pulse Rate 95 84 Respiratory Rate 24 H Blood Pressure Pulse Oximetry 98 Oxygen Delivery Mechanical Ventilation Oxygen Flow Rate Fraction of Inspired Oxygen 100 11/24/24 09:00 11/24/24 09:07 11/24/24 09:11 Temperature Pulse Rate 87 86 90 Respiratory Rate 26 H Blood Pressure 124/77 Pulse Oximetry 93 Oxygen Delivery Mechanical Ventilation Oxygen Flow Rate Fraction of Inspired Oxygen 60 11/24/24 09:12 11/24/24 09:48 11/24/24 10:00 Temperature Pulse Rate 85 89 81 Respiratory Rate Blood Pressure 75/69 L 103/85 Pulse Oximetry Oxygen Delivery Oxygen Flow Rate Fraction of Inspired Oxygen 11/24/24 10:21 Temperature Pulse Rate 90 Respiratory Rate Blood Pressure 104/71 Pulse Oximetry Oxygen Delivery Oxygen Flow Rate Fraction of Inspired Oxygen Intake/Output Intake/Output: Intake & Output 11/21/24 11/22/24 11/23/24 11/24/24 23:59 23:59 23:59 23:59 Intake Total 2640 4435 2342.8 933.7 Output Total 1655 2935 800 650 Balance 985 1500 1542.8 283.7 Meds/Results Medications: Active Medications Generic Name Dose Route Start Last Admin Trade Name Freq PRN Reason Stop Dose Admin Dextrose 12.5 gm 11/24/24 08:03 Dextrose 50% 25 Gm/50 Ml Syringe IV PUSH PRN PRN Hypoglycemia Protocol Enoxaparin Sodium 40 mg 11/21/24 09:00 11/24/24 09:23 Enoxaparin 40 Mg/0.4 Ml Syringe SUB-Q 40 mg DAILY TAMICA Administration Glucagon 1 mg 11/24/24 08:03 Glucagon For Inj 1 Mg Vial IM PRN PRN Hypoglycemia Protocol Glucose 15 gm 11/24/24 08:03 Glucose Oral Gel 15 Gm Of Glucse In 37.5 Gm Tube PO PRN PRN Hypoglycemia Protocol Hydrocortisone Sodium Succinate 100 mg 11/24/24 10:55 Hydrocortisone Sodium Succinate 100 Mg/2 Ml Vial IV PUSH Q8HR TAMICA Piperacillin Sod/Tazobactam 50 mls @ 100 mls/hr 11/21/24 00:00 11/24/24 06:39 Sod 3.375 gm/ Sodium Chloride IVPB 100 mls/hr Q6H TAMICA Administration Propofol 100 mls @ 0 mls/hr 11/23/24 13:45 11/23/24 23:53 Diprivan IV CONT Not Given .Q0M TAMICA Protocol 0 MCG/KG/MIN Fentanyl Citrate 2,500 mcg in 250 mls @ 10 mls/hr 11/23/24 14:05 11/24/24 04:00 Fentanyl 2,500 Mcg/Ns 250 Ml IV CONT 100 mcg/hr .Q25H TAMICA 10 mls/hr Titration Protocol 100 MCG/HR Phenylephrine HCl 50 mg/ 250 mls @ 42 mls/hr 11/23/24 18:45 11/24/24 10:21 Sodium Chloride IV CONT 180 mcg/min .Q5H58M TAMICA 54 mls/hr Administration Protocol 140 MCG/MIN Vasopressin 100 units/ 100 mls @ 2.4 mls/hr 11/23/24 21:45 11/24/24 04:00 Dextrose IV CONT 0.04 units/min .[id number] TAMICA 2.4 mls/hr Titration Protocol 0.04 UNITS/MIN Midazolam HCl 100 mg in 100 mls @ 4 mls/hr 11/23/24 21:45 11/24/24 04:00 Versed 100 Mg/Ns 100 Ml IV CONT 4 mg/hr .Q25H TAMICA 4 mls/hr Titration Protocol 4 MG/HR Norepinephrine Bitartrate 8 mg in 250 mls @ 9.375 mls/hr 11/23/24 23:25 11/24/24 09:07 Levophed 8 Mg/D5w 250 Ml IV CONT 5 mcg/min .Q24H TAMICA 9.38 mls/hr Titration Protocol 5 MCG/MIN Micafungin Sodium 100 mg/ 100 mls @ 100 mls/hr 11/24/24 09:00 11/24/24 09:23 Sodium Chloride IVPB 100 mls/hr DAILY TAMICA Administration Dextrose 1,000 mls @ 100 mls/hr 11/24/24 08:03 Dextrose 5% 1,000 Ml IVPB PRN PRN Hypoglycemia Protocol Lactated Ringer's 1,000 mls @ 125 mls/hr 11/24/24 09:10 11/24/24 09:28 Lr - Lactated Ringers Iv IV CONT 100 mls/hr .Q8H TAMICA Administration Insulin Aspart 3 - 6 units 11/24/24 09:00 11/24/24 10:02 Insulin Aspart (*Bkc) 100 Units/Ml SUB-Q 3 units Q4H TAMICA Administration Protocol Ipratropium [place] 0.5 mg 11/23/24 14:00 11/24/24 08:57 Ipratropium Br 0.02% Inh Soln 0.5 Mg/2.5 Ml Vial INHALATION 0.5 mg Q6HRT TAMICA Administration Levalbuterol HCl 0.63 mg 11/23/24 14:00 11/24/24 08:57 Levalbuterol Neb 1.25 Mg/3 Ml INHALATION 0.63 mg Q6HRT TAMICA Administration Midazolam HCl 2 mg 11/23/24 21:45 Midazolam Hcl (*Crx) 2 Mg/2 Ml Vial IV PUSH Q5M PRN ventilator asynchrony Multi-Ingred Cream/Lotion/Oil/Oint 1 applic 11/23/24 21:00 11/24/24 09:23 Mineral Oil/White Petrolatum Ointment EACH EYE 1 applic Q12HR TAMICA Administration Pantoprazole Sodium 40 mg 11/24/24 09:00 11/24/24 09:23 Pantoprazole Sodium Iv 40 Mg Vial IV PUSH 40 mg QAM TAMICA Administration Sodium Chloride 10 ml 11/23/24 14:00 11/24/24 06:39 Central Line Flush IV PUSH 10 ml Q8HR TAMICA Administration Sodium Chloride 10 ml 11/23/24 13:39 Central Line Flush IV PUSH PRN PRN with TPN bag changes Sodium Chloride 20 ml 11/23/24 13:39 Central Line Flush IV PUSH PRN PRN after blood draws Radiology Results: ITS Impressions Chest CTA 11/23/24 05:53 IMPRESSION: 1. Free intraperitoneal air in the upper abdomen. Correlate for recent surgery. In the absence of known surgery this is most likely secondary to bowel perforation. Clinically correlate. 2: No large central pulmonary embolism. Limited evaluation of the secondary and tertiary pulmonary arteries. 3: Small right pleural effusion. Dependent atelectasis. 4: Ascites. Venous Doppler Study 11/23/24 09:56 Impression: No evidence of deep venous thrombosis Abdomen/Pelvis CT 11/23/24 13:00 IMPRESSION: 1. Increasing free intraperitoneal air 11/22/2024, suspicious for bowel leak. I ncreasing fluid in the mesentery with ascites involving the perihepatic space. No discrete abscess identified. Consider correlation with contrast-enhanced CT abdomen. 2: Increasing consolidation of the lower lobes which may represent atelectasis or pneumonia. 3: Developing small pleural effusions. Abdomen X-Ray 11/23/24 14:04 IMPRESSION: 1: NG tube tip in the stomach. 2: Bibasilar airspace disease, edema versus pneumonia. Chest X-Ray 11/24/24 06:58 Impression: 1: Progression of bibasilar consolidation since prior examination which may repr esent a combination of edema, pneumonia and/or atelectasis. Labs Labs: Laboratory Results - last 24 hr 11/23/24 11/23/24 11/23/24 14:30 18:00 20:54 WBC 19.5 H RBC 4.15 L Hgb 13.4 L Hct 39.0 L MCV 94.0 MCH 32.3 MCHC 34.4 RDW 12.4 Plt Count 241 MPV 9.6 Immature Gran % (Auto) Not Reportable Neut % (Auto) Not Reportable Lymph % (Auto) Not Reportable [place] % (Auto) Not Reportable Eos % (Auto) Not Reportable Baso % (Auto) Not Reportable Lymph # (Auto) Not Reportable [place] # (Auto) Not Reportable Eos # (Auto) Not Reportable Baso # (Auto) Not Reportable Abs Immat Gran (auto) Not Reportable Absolute Neuts (auto) Not Reportable Absolute Nucleated RBC Not Reportable Total Counted 100 Neutrophils % (Manual) 47 Band Neutrophils % 35 H Lymphocytes % (Manual) 8.0 L Monocytes % (Manual) 7 Metamyelocytes % 3 Nucleated RBC % Not Reportable Abs Neuts (Manual) 15.99 H Abs Lymphs (Manual) 1.56 Abs Monocytes (Manual) 1.36 H Platelet Estimate Adequate Clumped Platelets Present Schistocytes None seen PT 15.1 H INR 1.2 APTT 31.3 Puncture Site Artline Artline ABG pH 7.312 L 7.403 ABG pCO2 36.8 34.5 L ABG pO2 65.0 L 165.4 H ABG PO2/FiO2 Ratio 0.65 1.65 ABG HCO3 18.2 L 21.0 L ABG O2 Saturation 91.2 L 99.1 ABG O2 Content 19.7 20.2 ABG Base Excess -7.2 -2.9 A-a Gradient 611.2 513.1 Oxyhemoglobin 89.7 L 98.4 Carboxyhemoglobin 1.1 0.5 Methemoglobin 0.2 0.2 Reduced Hemoglobin 9.0 H 0.9 Total Hemoglobin 15.6 14.4 O2 Delivery Device Ventilator Ventilator O2 Liters/Min Not Reportable Not Reportable Minute Volume Not Reportable Not Reportable Vent Rate 24 26 Vent Mode Assist control Cmv FiO2 100 100 Tidal Volume 450 450 PEEP 8 10 Peak Inspir Pressure Not Reportable Not Reportable Pressure Support Not Reportable Not Reportable Sodium 136 L Potassium 3.7 Chloride 106 Carbon Dioxide 18 L Anion Gap 12 BUN 28 H Creatinine 1.00 Estim Creat Clear Calc 93 Estimated GFR > 60 Glucose 174 H POC Capillary Glucose Lactic Acid 3.5 H Calcium 8.0 L Phosphorus 5.0 H Magnesium 1.6 Total Bilirubin 1.5 H AST 43 ALT 36 Alkaline Phosphatase 83 Total Creatine Kinase 233 H C-Reactive Protein > 9.0 H Total Protein 5.6 L Albumin 2.8 L Triglycerides 697 H Lipase 69 Blood Type A Positive Antibody Screen Negative 11/24/24 11/24/24 11/24/24 04:29 05:02 07:28 WBC 20.1 H RBC 4.31 L Hgb 13.7 L Hct 41.0 L MCV 95.1 MCH 31.8 MCHC 33.4 RDW 13.1 Plt Count 283 MPV 10.0 Immature Gran % (Auto) Not Reportable Neut % (Auto) Not Reportable Lymph % (Auto) Not Reportable [place] % (Auto) Not Reportable Eos % (Auto) Not Reportable Baso % (Auto) Not Reportable Lymph # (Auto) Not Reportable [place] # (Auto) Not Reportable Eos # (Auto) Not Reportable Baso # (Auto) Not Reportable Abs Immat Gran (auto) Not Reportable Absolute Neuts (auto) Not Reportable Absolute Nucleated RBC Not Reportable Total Counted 100 Neutrophils % (Manual) 84 H Band Neutrophils % 7 H Lymphocytes % (Manual) 5.0 L Monocytes % (Manual) 4 Metamyelocytes % Nucleated RBC % Not Reportable Abs Neuts (Manual) 18.29 H Abs Lymphs (Manual) 1.00 L Abs Monocytes (Manual) 0.80 Platelet Estimate Adequate Clumped Platelets Schistocytes None seen PT 16.2 H INR 1.3 APTT 31.8 Puncture Site Artline ABG pH 7.412 ABG pCO2 37.0 ABG pO2 159.4 H ABG PO2/FiO2 Ratio 1.59 ABG HCO3 23.0 ABG O2 Saturation 99.1 ABG O2 Content 20.4 ABG Base Excess -1.1 A-a Gradient 516.6 Oxyhemoglobin 98.6 Carboxyhemoglobin 0.5 Methemoglobin 0.1 Reduced Hemoglobin 0.8 Total Hemoglobin 14.5 O2 Delivery Device Ventilator O2 Liters/Min Not Reportable Minute Volume Not Reportable Vent Rate 26 Vent Mode Cmv FiO2 100 Tidal Volume 450 PEEP 10 Peak Inspir Pressure Not Reportable Pressure Support Not Reportable Sodium 138 Potassium 4.0 Chloride 107 Carbon Dioxide 22 Anion Gap 9 BUN 35 H Creatinine 1.25 Estim Creat Clear Calc 75 Estimated GFR 60 Glucose 237 H POC Capillary Glucose Lactic Acid 2.2 H 2.0 Calcium 7.8 L Phosphorus 4.3 Magnesium 2.2 Total Bilirubin 1.7 H AST 43 ALT 33 Alkaline Phosphatase 92 Total Creatine Kinase C-Reactive Protein Total Protein 5.1 L Albumin 2.4 L Triglycerides Lipase Blood Type Antibody Screen 11/24/24 08:19 WBC RBC Hgb Hct MCV MCH MCHC RDW Plt Count MPV Immature Gran % (Auto) Neut % (Auto) Lymph % (Auto) [place] % (Auto) Eos % (Auto) Baso % (Auto) Lymph # (Auto) [place] # (Auto) Eos # (Auto) Baso # (Auto) Abs Immat Gran (auto) Absolute Neuts (auto) Absolute Nucleated RBC Total Counted Neutrophils % (Manual) Band Neutrophils % Lymphocytes % (Manual) Monocytes % (Manual) Metamyelocytes % Nucleated RBC % Abs Neuts (Manual) Abs Lymphs (Manual) Abs Monocytes (Manual) Platelet Estimate Clumped Platelets Schistocytes PT INR APTT Puncture Site ABG pH ABG pCO2 ABG pO2 ABG PO2/FiO2 Ratio ABG HCO3 ABG O2 Saturation ABG O2 Content ABG Base Excess A-a Gradient Oxyhemoglobin Carboxyhemoglobin Methemoglobin Reduced Hemoglobin Total Hemoglobin O2 Delivery Device O2 Liters/Min Minute Volume Vent Rate Vent Mode FiO2 Tidal Volume PEEP Peak Inspir Pressure Pressure Support Sodium Potassium Chloride Carbon Dioxide Anion Gap BUN Creatinine Estim Creat Clear Calc Estimated GFR Glucose POC Capillary Glucose 229 H Lactic Acid Calcium Phosphorus Magnesium Total Bilirubin AST ALT Alkaline Phosphatase Total Creatine Kinase C-Reactive Protein Total Protein Albumin Triglycerides Lipase Blood Type Antibody Screen Quality VTE Prophylaxis VTE prophylaxis: pharmacologic ordered (Lovenox 40 mg subQ daily)
[2024-11-24] MEDS: HYDROCORTISONE SODIUM SUCCINATE 100 MG/2 ML VIAL IV PUSH ×3 (11:29→21:22)
--- NOTE | 2024-11-24 11:58 | PM.PNGS ---
Progress Note: A&P Assessment and Plan (1) Severe sepsis: Code(s): A41.9 - Sepsis, unspecified organism; R65.20 - Severe sepsis without septic shock Status: Acute Assessment and Plan: POD1 s/p exploratory laparotomy, ileocolic resection. Patient was febrile, tachycardic, tachypneic overnight. He has also been hypotensive. Currently still intubated and on pressors. wound vac applied today. Tolerated well. No facial dehiscence, fluctuance, or signs of skin necrosis. We will plan to change wound vac on a // schedule with the next change being on . Patient's family expressed wishes to transfer to [place]. We will likely pursue this transfer once patient is stable. Continue with management per lead manufacturing technician. (2) Appendicitis: Qualifiers: Acute appendicitis type: with generalized peritonitis Appendicitis abscess presence: without abscess Appendicitis gangrene presence: with gangrene Appendicitis perforation presence: with perforation Appendicitis type: acute appendicitis Qualified Code(s): K35.201 - Acute appendicitis with generalized peritonitis, with perforation, without abscess Code(s): K37 - Unspecified appendicitis Status: Acute (3) Closed right fibular fracture: Qualifiers: Encounter type: subsequent encounter Code(s): S82.401A - Unspecified fracture of shaft of right fibula, initial encounter for closed fracture Status: Acute (4) Status post appendectomy: Onset Date: 11/20/24 Code(s): Z90.49 - Acquired absence of other specified parts of digestive tract Status: Acute (5) Acute hypoxic respiratory failure: Code(s): J96.01 - Acute respiratory failure with hypoxia Status: Acute Plan Discussed patient's case and plan of care with Dr. Cortez. Subjective Subjective Date/Time Seen: 11/24/24 11:58 Post Op day: 1 Patient reports: fever Interval history: Patient febrile, tachycardic, tachypneic, and hypotensive overnight. Vital signs seem to be improving throughout the day. WBC 20.1, up from 19.5 yesterday. Patient is still intubated and on pressors. Wound vac placed with wound care nurse at bedside today. Exam GI: Other: Midline wound measuring 25.5 x 4 x 3.5. Bandage saturated with serosanguineous fluid. Wound bed looks very healthy with red tissue throughout. Some of the fascial sutures are visible, but intact. Wound vac applied. All other laparoscopic incisions healing well. Objective Data Vital Signs Vital Signs: Vital Signs - 24 hr 11/23/24 12:00 11/23/24 12:00 11/23/24 13:42 Temperature Pulse Rate 121 H Respiratory Rate Blood Pressure Pulse Oximetry 90 98 Oxygen Delivery High Flow Therapy with Na Mechanical Ventilation Oxygen Flow Rate 60 Fraction of Inspired Oxygen 70 100 11/23/24 13:52 11/23/24 14:00 11/23/24 14:00 Temperature Pulse Rate 106 H 124 H 121 H Respiratory Rate 24 H Blood Pressure Pulse Oximetry 95 Oxygen Delivery Mechanical Ventilation Oxygen Flow Rate Fraction of Inspired Oxygen 100 11/23/24 14:00 11/23/24 14:10 11/23/24 17:45 Temperature 101 F H Pulse Rate 142 H 125 H Respiratory Rate 30 H 24 H 30 H Blood Pressure 133/75 Pulse Oximetry Oxygen Delivery Oxygen Flow Rate Fraction of Inspired Oxygen 11/23/24 17:49 11/23/24 17:53 11/23/24 17:54 Temperature Pulse Rate 136 H 143 H 143 H Respiratory Rate 33 H 33 H Blood Pressure Pulse Oximetry 93 Oxygen Delivery Mechanical Ventilation Oxygen Flow Rate Fraction of Inspired Oxygen 100 11/23/24 18:00 11/23/24 18:00 11/23/24 18:00 Temperature Pulse Rate 140 H 140 H 141 H Respiratory Rate 33 H 35 H Blood Pressure 117/74 Pulse Oximetry 90 Oxygen Delivery Oxygen Flow Rate Fraction of Inspired Oxygen 11/23/24 18:02 11/23/24 18:05 11/23/24 18:32 Temperature Pulse Rate 140 H 142 H Respiratory Rate 33 H 37 H Blood Pressure Pulse Oximetry Oxygen Delivery Mechanical Ventilation Oxygen Flow Rate Fraction of Inspired Oxygen 100 11/23/24 18:37 11/23/24 18:38 11/23/24 18:51 Temperature Pulse Rate 138 H 138 H 125 H Respiratory Rate 39 H 36 H 30 H Blood Pressure Pulse Oximetry Oxygen Delivery Oxygen Flow Rate Fraction of Inspired Oxygen 11/23/24 19:00 11/23/24 19:02 11/23/24 19:17 Temperature 100.2 F H Pulse Rate 120 H 120 H 114 H Respiratory Rate 28 H 29 H Blood Pressure 90/56 L Pulse Oximetry 92 92 Oxygen Delivery Mechanical Ventilation Oxygen Flow Rate Fraction of Inspired Oxygen 100 11/23/24 19:42 11/23/24 20:00 11/23/24 20:00 Temperature Pulse Rate 111 H 107 H 107 H Respiratory Rate 26 H Blood Pressure 80/47 L 81/49 L Pulse Oximetry Oxygen Delivery Oxygen Flow Rate Fraction of Inspired Oxygen 11/23/24 20:00 11/23/24 20:00 11/23/24 20:00 Temperature Pulse Rate 107 H 99 106 H Respiratory Rate 26 H 26 H Blood Pressure Pulse Oximetry 98 Oxygen Delivery Mechanical Ventilation Oxygen Flow Rate Fraction of Inspired Oxygen 100 11/23/24 20:00 11/23/24 20:12 11/23/24 20:15 Temperature Pulse Rate 98 105 H Respiratory Rate 26 H Blood Pressure 79/50 L Pulse Oximetry Oxygen Delivery Oxygen Flow Rate Fraction of Inspired Oxygen 100 11/23/24 20:30 11/23/24 20:45 11/23/24 21:00 Temperature Pulse Rate 105 H 103 H 98 Respiratory Rate 26 H Blood Pressure 84/51 L 84/50 L Pulse Oximetry Oxygen Delivery Oxygen Flow Rate Fraction of Inspired Oxygen 11/23/24 21:09 11/23/24 21:22 11/23/24 21:40 Temperature Pulse Rate 99 99 94 Respiratory Rate Blood Pressure 89/53 L 79/48 L Pulse Oximetry 98 Oxygen Delivery Mechanical Ventilation Oxygen Flow Rate Fraction of Inspired Oxygen 100 11/23/24 22:00 11/23/24 22:00 11/23/24 22:00 Temperature 99.3 F Pulse Rate 984 H 94 97 Respiratory Rate 26 H Blood Pressure 80/48 L 79/48 L Pulse Oximetry 98 Oxygen Delivery Oxygen Flow Rate Fraction of Inspired Oxygen 11/23/24 22:00 11/23/24 22:00 11/23/24 22:00 Temperature Pulse Rate 97 97 97 Respiratory Rate 26 H 26 H Blood Pressure 79/49 L Pulse Oximetry Oxygen Delivery Oxygen Flow Rate Fraction of Inspired Oxygen 11/23/24 22:09 11/23/24 22:30 11/23/24 22:41 Temperature Pulse Rate 99 93 95 Respiratory Rate 26 H 26 H Blood Pressure Pulse Oximetry 98 Oxygen Delivery Mechanical Ventilation Oxygen Flow Rate Fraction of Inspired Oxygen 100 11/23/24 23:00 11/23/24 23:00 11/23/24 23:30 Temperature 101.2 F H Pulse Rate 90 90 89 Respiratory Rate 26 H 26 H 26 H Blood Pressure 83/52 L Pulse Oximetry 97 Oxygen Delivery Oxygen Flow Rate Fraction of Inspired Oxygen 11/23/24 23:35 11/23/24 23:35 11/23/24 23:55 Temperature 101.4 F H Pulse Rate 89 89 89 Respiratory Rate 26 H 26 H Blood Pressure 77/49 L 77/49 L Pulse Oximetry 98 98 Oxygen Delivery Mechanical Ventilation Oxygen Flow Rate Fraction of Inspired Oxygen 100 11/23/24 23:56 11/24/24 00:00 11/24/24 00:00 Temperature Pulse Rate 87 87 Respiratory Rate Blood Pressure 77/49 L Pulse Oximetry Oxygen Delivery Oxygen Flow Rate Fraction of Inspired Oxygen 100 11/24/24 00:00 11/24/24 00:00 11/24/24 00:00 Temperature Pulse Rate 87 87 87 Respiratory Rate 26 H Blood Pressure 85/53 L 85/53 L Pulse Oximetry Oxygen Delivery Oxygen Flow Rate Fraction of Inspired Oxygen 11/24/24 00:00 11/24/24 00:00 11/24/24 00:00 Temperature Pulse Rate 87 87 98 Respiratory Rate 26 H Blood Pressure 85/53 L 87/54 L Pulse Oximetry Oxygen Delivery Oxygen Flow Rate Fraction of Inspired Oxygen 11/24/24 01:00 11/24/24 01:12 11/24/24 01:17 Temperature Pulse Rate 87 85 88 Respiratory Rate 29 H Blood Pressure 97/56 L Pulse Oximetry 98 Oxygen Delivery Mechanical Ventilation Oxygen Flow Rate Fraction of Inspired Oxygen 100 11/24/24 02:00 11/24/24 02:00 11/24/24 02:00 Temperature Pulse Rate 84 84 84 Respiratory Rate Blood Pressure 95/53 L 94/53 L Pulse Oximetry Oxygen Delivery Oxygen Flow Rate Fraction of Inspired Oxygen 11/24/24 02:00 11/24/24 02:00 11/24/24 02:00 Temperature Pulse Rate 84 84 84 Respiratory Rate 26 H 26 H Blood Pressure 94/56 L Pulse Oximetry Oxygen Delivery Oxygen Flow Rate Fraction of Inspired Oxygen 11/24/24 02:00 11/24/24 03:21 11/24/24 03:23 Temperature 101.4 F H Pulse Rate 84 84 84 Respiratory Rate 26 H 26 H Blood Pressure 93/56 L Pulse Oximetry 97 98 Oxygen Delivery Mechanical Ventilation Oxygen Flow Rate Fraction of Inspired Oxygen 100 11/24/24 03:23 11/24/24 04:00 11/24/24 04:00 Temperature 101.2 F H Pulse Rate 83 83 Respiratory Rate 18 Blood Pressure 96/53 L 96/53 L Pulse Oximetry 99 Oxygen Delivery Oxygen Flow Rate Fraction of Inspired Oxygen 100 11/24/24 04:00 11/24/24 04:00 11/24/24 04:00 Temperature Pulse Rate 83 83 83 Respiratory Rate 26 H 26 H Blood Pressure 96/53 L Pulse Oximetry Oxygen Delivery Oxygen Flow Rate Fraction of Inspired Oxygen 11/24/24 04:00 11/24/24 04:24 11/24/24 05:00 Temperature Pulse Rate 83 86 84 Respiratory Rate Blood Pressure 96/53 L 96/5 L Pulse Oximetry 97 Oxygen Delivery Mechanical Ventilation Oxygen Flow Rate Fraction of Inspired Oxygen 100 11/24/24 05:56 11/24/24 06:00 11/24/24 07:34 Temperature 101 F H 101.3 F H Pulse Rate 108 H 108 H 117 H Respiratory Rate 26 H 25 H Blood Pressure 92/55 L 94/58 L Pulse Oximetry 96 97 Oxygen Delivery Oxygen Flow Rate Fraction of Inspired Oxygen 11/24/24 08:00 11/24/24 08:00 11/24/24 08:00 Temperature Pulse Rate 93 Respiratory Rate Blood Pressure 112/75 Pulse Oximetry 98 Oxygen Delivery Mechanical Ventilation Oxygen Flow Rate Fraction of Inspired Oxygen 60 100 11/24/24 08:00 11/24/24 08:58 11/24/24 09:00 Temperature Pulse Rate 95 84 87 Respiratory Rate 24 H Blood Pressure Pulse Oximetry 93 Oxygen Delivery Mechanical Ventilation Oxygen Flow Rate Fraction of Inspired Oxygen 60 11/24/24 09:07 11/24/24 09:11 11/24/24 09:12 Temperature Pulse Rate 86 90 85 Respiratory Rate 26 H Blood Pressure 124/77 75/69 L Pulse Oximetry Oxygen Delivery Oxygen Flow Rate Fraction of Inspired Oxygen 11/24/24 09:48 11/24/24 10:00 11/24/24 10:00 Temperature 101.3 F H Pulse Rate 89 81 80 Respiratory Rate 28 H Blood Pressure 103/85 122/79 Pulse Oximetry 95 Oxygen Delivery Oxygen Flow Rate Fraction of Inspired Oxygen 11/24/24 10:21 11/24/24 11:09 Temperature Pulse Rate 90 83 Respiratory Rate Blood Pressure 104/71 Pulse Oximetry 95 Oxygen Delivery Mechanical Ventilation Oxygen Flow Rate Fraction of Inspired Oxygen 60 Intake/Output Intake/Output: Intake & Output 07/21/11/22/24 11/23/24 11/24/24 23:59 23:59 23:59 23:59 Intake Total 2640 4435 2342.8 987.0 Output Total 1655 2935 800 650 Balance 985 1500 1542.8 337.0 Meds/Results Medications: Active Medications Generic Name Dose Route Start Last Admin Trade Name Freq PRN Reason Stop Dose Admin Dextrose 12.5 gm 11/24/24 08:03 Dextrose 50% 25 Gm/50 Ml Syringe IV PUSH PRN PRN Hypoglycemia Protocol Enoxaparin Sodium 40 mg 11/21/24 09:00 11/24/24 09:23 Enoxaparin 40 Mg/0.4 Ml Syringe SUB-Q 40 mg DAILY TAMICA Administration Glucagon 1 mg 11/24/24 08:03 Glucagon For Inj 1 Mg Vial IM PRN PRN Hypoglycemia Protocol Glucose 15 gm 11/24/24 08:03 Glucose Oral Gel 15 Gm Of Glucse In 37.5 Gm Tube PO PRN PRN Hypoglycemia Protocol Hydrocortisone Sodium Succinate 100 mg 11/24/24 10:55 11/24/24 11:29 Hydrocortisone Sodium Succinate 100 Mg/2 Ml Vial IV PUSH 100 mg Q8HR TAMICA Administration Piperacillin Sod/Tazobactam 50 mls @ 100 mls/hr 11/21/24 00:00 11/24/24 06:39 Sod 3.375 gm/ Sodium Chloride IVPB 100 mls/hr Q6H TAMICA Administration Propofol 100 mls @ 0 mls/hr 11/23/24 13:45 11/23/24 23:53 Diprivan IV CONT Not Given .Q0M TAMICA Protocol 0 MCG/KG/MIN Fentanyl Citrate 2,500 mcg in 250 mls @ 10 mls/hr 11/23/24 14:05 11/24/24 04:00 Fentanyl 2,500 Mcg/Ns 250 Ml IV CONT 100 mcg/hr .Q25H TAMICA 10 mls/hr Titration Protocol 100 MCG/HR Phenylephrine HCl 50 mg/ 250 mls @ 42 mls/hr 11/23/24 18:45 11/24/24 10:21 Sodium Chloride IV CONT 180 mcg/min .Q5H58M TAMICA 54 mls/hr Administration Protocol 140 MCG/MIN Vasopressin 100 units/ 100 mls @ 2.4 mls/hr 11/23/24 21:45 11/24/24 04:00 Dextrose IV CONT 0.04 units/min .[id number] TAMICA 2.4 mls/hr Titration Protocol 0.04 UNITS/MIN Midazolam HCl 100 mg in 100 mls @ 4 mls/hr 11/23/24 21:45 11/24/24 04:00 Versed 100 Mg/Ns 100 Ml IV CONT 4 mg/hr .Q25H TAMICA 4 mls/hr Titration Protocol 4 MG/HR Norepinephrine Bitartrate 8 mg in 250 mls @ 9.375 mls/hr 11/23/24 23:25 11/24/24 09:07 Levophed 8 Mg/D5w 250 Ml IV CONT 5 mcg/min .Q24H TAMICA 9.38 mls/hr Titration Protocol 5 MCG/MIN Micafungin Sodium 100 mg/ 100 mls @ 100 mls/hr 11/24/24 09:00 11/24/24 09:23 Sodium Chloride IVPB 100 mls/hr DAILY TAMICA Administration Dextrose 1,000 mls @ 100 mls/hr 11/24/24 08:03 Dextrose 5% 1,000 Ml IVPB PRN PRN Hypoglycemia Protocol Lactated Ringer's 1,000 mls @ 125 mls/hr 11/24/24 09:10 11/24/24 10:00 Lr - Lactated Ringers Iv IV CONT 125 mls/hr .Q8H TAMICA Infusion Insulin Aspart 3 - 6 units 11/24/24 09:00 11/24/24 10:02 Insulin Aspart (*Bkc) 100 Units/Ml SUB-Q 3 units Q4H TAMICA Administration Protocol Ipratropium George 0.5 mg 11/23/24 14:00 11/24/24 08:57 Ipratropium Br 0.02% Inh Soln 0.5 Mg/2.5 Ml Vial INHALATION 0.5 mg Q6HRT TAMICA Administration Levalbuterol HCl 0.63 mg 11/23/24 14:00 11/24/24 08:57 Levalbuterol Neb 1.25 Mg/3 Ml INHALATION 0.63 mg Q6HRT TAMICA Administration Midazolam HCl 2 mg 11/23/24 21:45 Midazolam Hcl (*Crx) 2 Mg/2 Ml Vial IV PUSH Q5M PRN ventilator asynchrony Multi-Ingred Cream/Lotion/Oil/Oint 1 applic 11/23/24 21:00 11/24/24 09:23 Mineral Oil/White Petrolatum Ointment EACH EYE 1 applic Q12HR TAMICA Administration Pantoprazole Sodium 40 mg 11/24/24 09:00 11/24/24 09:23 Pantoprazole Sodium Iv 40 Mg Vial IV PUSH 40 mg QAM TAMICA Administration Sodium Chloride 10 ml 11/23/24 14:00 11/24/24 06:39 Central Line Flush IV PUSH 10 ml Q8HR TAMICA Administration Sodium Chloride 10 ml 11/23/24 13:39 Central Line Flush IV PUSH PRN PRN with TPN bag changes Sodium Chloride 20 ml 11/23/24 13:39 Central Line Flush IV PUSH PRN PRN after blood draws Radiology Results: ITS Impressions Chest CTA 11/23/24 05:53 IMPRESSION: 1. Free intraperitoneal air in the upper abdomen. Correlate for recent surgery. In the absence of known surgery this is most likely secondary to bowel perforation. Clinically correlate. 2: No large central pulmonary embolism. Limited evaluation of the secondary and tertiary pulmonary arteries. 3: Small right pleural effusion. Dependent atelectasis. 4: Ascites. Venous Doppler Study 11/23/24 09:56 Impression: No evidence of deep venous thrombosis Abdomen/Pelvis CT 11/23/24 13:00 IMPRESSION: 1. Increasing free intraperitoneal air 11/22/2024, suspicious for bowel leak. Increasing fluid in the mesentery with ascites involving the perihepatic space. No discrete abscess identified. Consider correlation with contrast-enhanced CT abdomen. 2: Increasing consolidation of the lower lobes which may represent atelectasis or pneumonia. 3: Developing small pleural effusions. Abdomen X-Ray 11/23/24 14:04 IMPRESSION: 1: NG tube tip in the stomach. 2: Bibasilar airspace disease, edema versus pneumonia. Chest X-Ray 11/24/24 06:58 Impression: 1: Progression of bibasilar consolidation since prior examination which may represent a combination of edema, pneumonia and/or atelectasis. Labs Labs: Laboratory Results - last 24 hr 11/23/24 11/23/24 11/23/24 14:30 18:00 20:54 WBC 19.5 H RBC 4.15 L Hgb 13.4 L Hct 39.0 L MCV 94.0 MCH 32.3 MCHC 34.4 RDW 12.4 Plt Count 241 MPV 9.6 Immature Gran % (Auto) Not Reportable Neut % (Auto) Not Reportable Lymph % (Auto) Not Reportable [place] % (Auto) Not Reportable Eos % (Auto) Not Reportable Baso % (Auto) Not Reportable Lymph # (Auto) Not Reportable [place] # (Auto) Not Reportable Eos # (Auto) Not Reportable Baso # (Auto) Not Reportable Abs Immat Gran (auto) Not Reportable Absolute Neuts (auto) Not Reportable Absolute Nucleated RBC Not Reportable Total Counted 100 Neutrophils % (Manual) 47 Band Neutrophils % 35 H Lymphocytes % (Manual) 8.0 L Monocytes % (Manual) 7 Metamyelocytes % 3 Nucleated RBC % Not Reportable Abs Neuts (Manual) 15.99 H Abs Lymphs (Manual) 1.56 Abs Monocytes (Manual) 1.36 H Platelet Estimate Adequate Clumped Platelets Present Schistocytes None seen PT 15.1 H INR 1.2 APTT 31.3 Puncture Site Artline Artline ABG pH 7.312 L 7.403 ABG pCO2 36.8 34.5 L ABG pO2 65.0 L 165.4 H ABG PO2/FiO2 Ratio 0.65 1.65 ABG HCO3 18.2 L 21.0 L ABG O2 Saturation 91.2 L 99.1 ABG O2 Content 19.7 20.2 ABG Base Excess -7.2 -2.9 A-a Gradient 611.2 513.1 Oxyhemoglobin 89.7 L 98.4 Carboxyhemoglobin 1.1 0.5 Methemoglobin 0.2 0.2 Reduced Hemoglobin 9.0 H 0.9 Total Hemoglobin 15.6 14.4 O2 Delivery Device Ventilator Ventilator O2 Liters/Min Not Reportable Not Reportable Minute Volume Not Reportable Not Reportable Vent Rate 24 26 Vent Mode Assist control Cmv FiO2 100 100 Tidal Volume 450 450 PEEP 8 10 Peak Inspir Pressure Not Reportable Not Reportable Pressure Support Not Reportable Not Reportable Sodium 136 L Potassium 3.7 Chloride 106 Carbon Dioxide 18 L Anion Gap 12 BUN 28 H Creatinine 1.00 Estim Creat Clear Calc 93 Estimated GFR > 60 Glucose 174 H POC Capillary Glucose Lactic Acid 3.5 H Calcium 8.0 L Phosphorus 5.0 H Magnesium 1.6 Total Bilirubin 1.5 H AST 43 ALT 36 Alkaline Phosphatase 83 Total Creatine Kinase 233 H C-Reactive Protein > 9.0 H Total Protein 5.6 L Albumin 2.8 L Triglycerides 697 H Lipase 69 Blood Type A Positive Antibody Screen Negative 11/24/24 11/24/24 11/24/24 04:29 05:02 07:28 WBC 20.1 H RBC 4.31 L Hgb 13.7 L Hct 41.0 L MCV 95.1 MCH 31.8 MCHC 33.4 RDW 13.1 Plt Count 283 MPV 10.0 Immature Gran % (Auto) Not Reportable Neut % (Auto) Not Reportable Lymph % (Auto) Not Reportable [place] % (Auto) Not Reportable Eos % (Auto) Not Reportable Baso % (Auto) Not Reportable Lymph # (Auto) Not Reportable [place] # (Auto) Not Reportable Eos # (Auto) Not Reportable Baso # (Auto) Not Reportable Abs Immat Gran (auto) Not Reportable Absolute Neuts (auto) Not Reportable Absolute Nucleated RBC Not Reportable Total Counted 100 Neutrophils % (Manual) 84 H Band Neutrophils % 7 H Lymphocytes % (Manual) 5.0 L Monocytes % (Manual) 4 Metamyelocytes % Nucleated RBC % Not Reportable Abs Neuts (Manual) 18.29 H Abs Lymphs (Manual) 1.00 L Abs Monocytes (Manual) 0.80 Platelet Estimate Adequate Clumped Platelets Schistocytes None seen PT 16.2 H INR 1.3 APTT 31.8 Puncture Site Artline ABG pH 7.412 ABG pCO2 37.0 ABG pO2 159.4 H ABG PO2/FiO2 Ratio 1.59 ABG HCO3 23.0 ABG O2 Saturation 99.1 ABG O2 Content 20.4 ABG Base Excess -1.1 A-a Gradient 516.6 Oxyhemoglobin 98.6 Carboxyhemoglobin 0.5 Methemoglobin 0.1 Reduced Hemoglobin 0.8 Total Hemoglobin 14.5 O2 Delivery Device Ventilator O2 Liters/Min Not Reportable Minute Volume Not Reportable Vent Rate 26 Vent Mode Cmv FiO2 100 Tidal Volume 450 PEEP 10 Peak Inspir Pressure Not Reportable Pressure Support Not Reportable Sodium 138 Potassium 4.0 Chloride 107 Carbon Dioxide 22 Anion Gap 9 BUN 35 H Creatinine 1.25 Estim Creat Clear Calc 75 Estimated GFR 60 Glucose 237 H POC Capillary Glucose Lactic Acid 2.2 H 2.0 Calcium 7.8 L Phosphorus 4.3 Magnesium 2.2 Total Bilirubin 1.7 H AST 43 ALT 33 Alkaline Phosphatase 92 Total Creatine Kinase C-Reactive Protein Total Protein 5.1 L Albumin 2.4 L Triglycerides Lipase Blood Type Antibody Screen 11/24/24 11/24/24 08:19 11:22 WBC RBC Hgb Hct MCV MCH MCHC RDW Plt Count MPV Immature Gran % (Auto) Neut % (Auto) Lymph % (Auto) [place] % (Auto) Eos % (Auto) Baso % (Auto) Lymph # (Auto) [place] # (Auto) Eos # (Auto) Baso # (Auto) Abs Immat Gran (auto) Absolute Neuts (auto) Absolute Nucleated RBC Total Counted Neutrophils % (Manual) Band Neutrophils % Lymphocytes % (Manual) Monocytes % (Manual) Metamyelocytes % Nucleated RBC % Abs Neuts (Manual) Abs Lymphs (Manual) Abs Monocytes (Manual) Platelet Estimate Clumped Platelets Schistocytes PT INR APTT Puncture Site ABG pH ABG pCO2 ABG pO2 ABG PO2/FiO2 Ratio ABG HCO3 ABG O2 Saturation ABG O2 Content ABG Base Excess A-a Gradient Oxyhemoglobin Carboxyhemoglobin Methemoglobin Reduced Hemoglobin Total Hemoglobin O2 Delivery Device O2 Liters/Min Minute Volume Vent Rate Vent Mode FiO2 Tidal Volume PEEP Peak Inspir Pressure Pressure Support Sodium Potassium Chloride Carbon Dioxide Anion Gap BUN Creatinine Estim Creat Clear Calc Estimated GFR Glucose POC Capillary Glucose 229 H 231 H Lactic Acid Calcium Phosphorus Magnesium Total Bilirubin AST ALT Alkaline Phosphatase Total Creatine Kinase C-Reactive Protein Total Protein Albumin Triglycerides Lipase Blood Type Antibody Screen
--- NOTE | 2024-11-24 12:27 | WPDPROCEDUR ---
Procedures Arterial Line Arterial Line Date: 11/24/24 Arterial Line Time: 12:10 Discussed with the patient/family/POA, the placement of an arterial catheter, including its clinical necessity/indication and associated potential risks, benefits and alternatives.: Yes Time Out Performed: Yes Patient Position: supine Cert Occupational Therapy Asst Prep: sterile gown, sterile gloves, mask and hat Site: right and radial Site Prep: chlorhexidine and sterile drape Skin Anesthesia: none Technique used: ultrasound-guided Size (Gauge): 18 Length: 4.4 cm Closure/Dressing: suture, transparent dressing, hemostatic product, antimicrobial product and securement product Patient tolerated procedure: well and no complications Complications: none
--- NOTE | 2024-11-24 13:12 | P.PNAN_ITS ---
Anes - Prog Note Post-Op Date/Time: 11/24/24 13:12 Cardiovascular status: other Respiratory status: other Airway patency: other Mental status: other Post-Op hydration status: other Vital Signs: Last Vital Signs Temp 38.6 C H 11/24/24 12:00 Pulse 80 11/24/24 12:00 Resp 26 H 11/24/24 12:00 BP 108/53 L 11/24/24 12:00 Pulse Ox 95 11/24/24 12:00 O2 Del Method Mechanical Ventilation 11/24/24 12:00 O2 Flow Rate 60 11/23/24 12:00 FiO2 60 11/24/24 12:00 Pain Score (VAS): 0 I/O: Intake & Output 11/23/24 11/24/24 11/24/24 23:59 07:59 15:59 Intake Total 402.3 656.5 380.5 Output Total 300 650 Balance 102.3 6.5 380.5 Laboratory Tests 11/24/24 05:02 11/24/24 05:02 11/23/24 11/23/24 11/23/24 14:30 18:00 20:54 WBC 19.5 H RBC 4.15 L Hgb 13.4 L Hct 39.0 L MCV 94.0 MCH 32.3 MCHC 34.4 RDW 12.4 Plt Count 241 MPV 9.6 Immature Gran % (Auto) Not Reportable Neut % (Auto) Not Reportable Lymph % (Auto) Not Reportable [place]gs % (Auto) Not Reportable Eos % (Auto) Not Reportable Baso % (Auto) Not Reportable Lymph # (Auto) Not Reportable [place]gs # (Auto) Not Reportable Eos # (Auto) Not Reportable Baso # (Auto) Not Reportable Abs Immat Gran (auto) Not Reportable Absolute Neuts (auto) Not Reportable Absolute Nucleated RBC Not Reportable Total Counted 100 Neutrophils % (Manual) 47 Band Neutrophils % 35 H Lymphocytes % (Manual) 8.0 L Monocytes % (Manual) 7 Metamyelocytes % 3 Nucleated RBC % Not Reportable Abs Neuts (Manual) 15.99 H Abs Lymphs (Manual) 1.56 Abs Monocytes (Manual) 1.36 H Platelet Estimate Adequate Clumped Platelets Present Schistocytes None seen PT 15.1 H INR 1.2 APTT 31.3 Puncture Site Artline Artline ABG pH 7.312 L 7.403 ABG pCO2 36.8 34.5 L ABG pO2 65.0 L 165.4 H ABG PO2/FiO2 Ratio 0.65 1.65 ABG HCO3 18.2 L 21.0 L ABG O2 Saturation 91.2 L 99.1 ABG O2 Content 19.7 20.2 ABG Base Excess -7.2 -2.9 A-a Gradient 611.2 513.1 Oxyhemoglobin 89.7 L 98.4 Carboxyhemoglobin 1.1 0.5 Methemoglobin 0.2 0.2 Reduced Hemoglobin 9.0 H 0.9 Total Hemoglobin 15.6 14.4 O2 Delivery Device Ventilator Ventilator O2 Liters/Min Not Reportable Not Reportable Minute Volume Not Reportable Not Reportable Vent Rate 24 26 Vent Mode Assist control Cmv FiO2 100 100 Tidal Volume 450 450 PEEP 8 10 Peak Inspir Pressure Not Reportable Not Reportable Pressure Support Not Reportable Not Reportable Sodium 136 L Potassium 3.7 Chloride 106 Carbon Dioxide 18 L Anion Gap 12 BUN 28 H Creatinine 1.00 Estim Creat Clear Calc 93 Estimated GFR > 60 Glucose 174 H POC Capillary Glucose Lactic Acid 3.5 H Calcium 8.0 L Phosphorus 5.0 H Magnesium 1.6 Total Bilirubin 1.5 H AST 43 ALT 36 Alkaline Phosphatase 83 Total Creatine Kinase 233 H C-Reactive Protein > 9.0 H Total Protein 5.6 L Albumin 2.8 L Triglycerides 697 H Lipase 69 Blood Type A Positive Antibody Screen Negative 11/24/24 11/24/24 11/24/24 04:29 05:02 07:28 WBC 20.1 H RBC 4.31 L Hgb 13.7 L Hct 41.0 L MCV 95.1 MCH 31.8 MCHC 33.4 RDW 13.1 Plt Count 283 MPV 10.0 Immature Gran % (Auto) Not Reportable Neut % (Auto) Not Reportable Lymph % (Auto) Not Reportable [place]gs % (Auto) Not Reportable Eos % (Auto) Not Reportable Baso % (Auto) Not Reportable Lymph # (Auto) Not Reportable [place]gs # (Auto) Not Reportable Eos # (Auto) Not Reportable Baso # (Auto) Not Reportable Abs Immat Gran (auto) Not Reportable Absolute Neuts (auto) Not Reportable Absolute Nucleated RBC Not Reportable Total Counted 100 Neutrophils % (Manual) 84 H Band Neutrophils % 7 H Lymphocytes % (Manual) 5.0 L Monocytes % (Manual) 4 Metamyelocytes % Nucleated RBC % Not Reportable Abs Neuts (Manual) 18.29 H Abs Lymphs (Manual) 1.00 L Abs Monocytes (Manual) 0.80 Platelet Estimate Adequate Clumped Platelets Schistocytes None seen PT 16.2 H INR 1.3 APTT 31.8 Puncture Site Artline ABG pH 7.412 ABG pCO2 37.0 ABG pO2 159.4 H ABG PO2/FiO2 Ratio 1.59 ABG HCO3 23.0 ABG O2 Saturation 99.1 ABG O2 Content 20.4 ABG Base Excess -1.1 A-a Gradient 516.6 Oxyhemoglobin 98.6 Carboxyhemoglobin 0.5 Methemoglobin 0.1 Reduced Hemoglobin 0.8 Total Hemoglobin 14.5 O2 Delivery Device Ventilator O2 Liters/Min Not Reportable Minute Volume Not Reportable Vent Rate 26 Vent Mode Cmv FiO2 100 Tidal Volume 450 PEEP 10 Peak Inspir Pressure Not Reportable Pressure Support Not Reportable Sodium 138 Potassium 4.0 Chloride 107 Carbon Dioxide 22 Anion Gap 9 BUN 35 H Creatinine 1.25 Estim Creat Clear Calc 75 Estimated GFR 60 Glucose 237 H POC Capillary Glucose Lactic Acid 2.2 H 2.0 Calcium 7.8 L Phosphorus 4.3 Magnesium 2.2 Total Bilirubin 1.7 H AST 43 ALT 33 Alkaline Phosphatase 92 Total Creatine Kinase C-Reactive Protein Total Protein 5.1 L Albumin 2.4 L Triglycerides Lipase Blood Type Antibody Screen 11/24/24 11/24/24 08:19 11:22 WBC RBC Hgb Hct MCV MCH MCHC RDW Plt Count MPV Immature Gran % (Auto) Neut % (Auto) Lymph % (Auto) [place] % (Auto) Eos % (Auto) Baso % (Auto) Lymph # (Auto) [place] # (Auto) Eos # (Auto) Baso # (Auto) Abs Immat Gran (auto) Absolute Neuts (auto) Absolute Nucleated RBC Total Counted Neutrophils % (Manual) Band Neutrophils % Lymphocytes % (Manual) Monocytes % (Manual) Metamyelocytes % Nucleated RBC % Abs Neuts (Manual) Abs Lymphs (Manual) Abs Monocytes (Manual) Platelet Estimate Clumped Platelets Schistocytes PT INR APTT Puncture Site ABG pH ABG pCO2 ABG pO2 ABG PO2/FiO2 Ratio ABG HCO3 ABG O2 Saturation ABG O2 Content ABG Base Excess A-a Gradient Oxyhemoglobin Carboxyhemoglobin Methemoglobin Reduced Hemoglobin Total Hemoglobin O2 Delivery Device O2 Liters/Min Minute Volume Vent Rate Vent Mode FiO2 Tidal Volume PEEP Peak Inspir Pressure Pressure Support Sodium Potassium Chloride Carbon Dioxide Anion Gap BUN Creatinine Estim Creat Clear Calc Estimated GFR Glucose POC Capillary Glucose 229 H 231 H Lactic Acid Calcium Phosphorus Magnesium Total Bilirubin AST ALT Alkaline Phosphatase Total Creatine Kinase C-Reactive Protein Total Protein Albumin Triglycerides Lipase Blood Type Antibody Screen Patient Feedback: Patient satisfied with anesthetic care.
[2024-11-24] MEDS: NOREPINEPHRINE 8 MG/D5W 250 ML 8 MG/250 ML BAG 9.38 MG IV CONT (13:46)
[2024-11-24] MEDS: FENTANYL 2,500MCG/NS250ML(*CRX 2,500 MCG/250 ML BAG 10 MCG IV CONT (14:10)
[2024-11-24] MEDS: MIDAZOLAM 100MG/NS 100ML(*CRX) 100 MG/100 ML BAG IV CONT (17:00)
[2024-11-24] MEDS: LACTATED RINGERS 1,000 ML 125 ML IV CONT (20:06)
[2024-11-25] VITALS (38 sets, daily range): BP systolic 90–121; BP diastolic 48–83; PULSE 66–100; RESP 18–29; TEMP 37.7–38.2; O2SAT 91–94
[2024-11-25] MEDS: PIPERACILLIN/TAZOBACTAM SOD 3.375 GM in SODIUM CHLORIDE 0.9% IV 50 ML 100 ML IVPB ×4 (00:50→17:15)
[2024-11-25] MEDS: INSULIN ASPART (*BKC) 100 UNITS/ML SUB-Q ×5 (02:02→21:18)
[2024-11-25] MEDS: NOREPINEPHRINE 8 MG/D5W 250 ML 8 MG/250 ML BAG 18.75 MG IV CONT (02:02)
[2024-11-25] MEDS: IPRATROPIUM BR 0.02% INH SOLN 0.5 MG/2.5 ML VIAL INHALATION ×4 (02:10→20:45)
[2024-11-25 04:57] LABS: Alveolar/Arterial O2 Gradient 380.5 mmHg; Carboxyhemoglobin 0.1 % THb (0-2.0); Fractional Inspired Oxygen 70 %; HCO3 ABG 25.9 mEq/l (22.0-26.0); Methemoglobin ABG 0.3 %THb (0-1.5); Oxygen Content ABG 15.5 %vol (16.0-22.0); Oxygen Saturation ABG 96.3 % (95.0-100.0); PCO2 ABG 37.1 mmHg (35.0-45.0); PO2 ABG 78.7 mmHg (80.0-100.0); PO2 FiO2 Ratio Arterial Blood 1.12 %; Reduced Hemoglobin 4.4 %THb (0-5.0)
[2024-11-25 05:01] LABS: Site Drawn ARTLINE
[2024-11-25 05:02] LABS: Arterial Blood Gas Tidal Volume 450 ml; Arterial Blood Gas Ventilator rate 26 /MIN
[2024-11-25 05:03] LABS: Hematocrit 32.8 % (42.0-52.0); Hemoglobin 10.9 g/dL (14.0-18.0); Mean Corpuscular HGB Conc 33.2 g/dl (32-36); Mean Corpuscular Hemoglobin 32.3 pg (26-34); Mean Corpuscular Volume 97.3 fl (80-100); Platelet Count Result 182 k/mm3 (150-375); Red Blood Count 3.37 M/mm3 (4.6-6.20); White Blood Count 23.5 K/mm3 (4.5-10.0)
[2024-11-25] MEDS: LACTATED RINGERS 1,000 ML 125 ML IV CONT (05:10)
[2024-11-25 05:24] LABS: INR 1.1; Prothrombin Time 14.0 Seconds (11.1-14.7)
[2024-11-25 05:25] LABS: Partial Thromboplastin Time 28.8 Seconds (22.3-36.8)
[2024-11-25 05:30] LABS: Anisocytosis 1+; Band Neutrophils Percent 4 % (0-6); Hypochromasia 1+; Lymphocytes Absolute Manual 1.17 K/mm3 (1.1-4.5); Lymphocytes Percent Manual 5.0 % (18-44); Monocytes Absolute Manual 0.70 K/mm3 (0.1-0.90); Monocytes Percent Manual 3 % (3-9); Neutrophils Absolute Manual 21.62 K/mm3 (1.3-6.7); Neutrophils Percent Manual 88 % (46-73); Schistocytes None Seen; Smudge Cells PRESENT; Total Cells Counted 100
[2024-11-25 05:33] LABS: Alanine Aminotransferase 33 U/L (6-50); Albumin Level 2.2 g/dL (3.5-5.1); Alkaline Phosphatase 91 U/L (38-126); Anion Gap 4 mmol/L (4-12); Aspartate Amino Transferase 42 U/L (17-59); Bilirubin,Total 1.4 mg/dL (0.2-1.3); Blood Urea Nitrogen 31 mg/dL (9-20); Carbon Dioxide 25 mmol/L (22-30); Chloride 105 mmol/L (98-107); Estimated CRCL calculation 98 ml/min; Estimated Glomerular Filt Rate > 60; Magnesium 2.6 mg/dL (1.6-2.3); Sodium 134 mmol/L (137-145); Total Protein 4.8 g/dL (6.3-8.2)
[2024-11-25 06:16] LABS: Calcium 8.0 mg/dL (8.4-10.2); Glucose 237 mg/dL (65-110); Potassium 4.1 mmol/L (3.4-5.0)
[2024-11-25] MEDS: HYDROCORTISONE SODIUM SUCCINATE 100 MG/2 ML VIAL IV PUSH ×3 (06:37→21:20)
[2024-11-25] MEDS: CENTRAL LINE FLUSH 10 ML IV PUSH ×2 (07:00→14:04)
[2024-11-25] MEDS: MICAFUNGIN SODIUM 100 MG in SODIUM CHLORIDE 0.9% IV 100 ML IVPB (08:02)
[2024-11-25] MEDS: PANTOPRAZOLE SODIUM IV 40 MG VIAL IV PUSH (08:02)
[2024-11-25] MEDS: ENOXAPARIN 40 MG/0.4 ML SYRINGE SUB-Q (08:03)
[2024-11-25] MEDS: MINERAL OIL/WHITE PETROLATUM OINTMENT 1 APPLIC EACH EYE ×2 (08:03→21:20)
[2024-11-25] MEDS: INSULIN GLARGINE (*BKC) 100 UNITS/ML 8 UNITS SUB-Q (10:46)
--- NOTE | 2024-11-25 10:59 | PCNFU ---
Nutrition Follow-Up Complete: Altered GI function as related to Perforated Bowel as evidenced by NPO. Meet estimated nutritional needs.- Not progressing yet. Still NPO Goal: Pt current nutrition is NPO Nutrition recommendation: TPN orders per surgery. Recommend Clinmix 5/15 E with lipids @ goal rate 60 ml/h. Start at 40 ml/h and progress as tolerated Last recorded weight is 112.9 kg. Bowel Motility: Last BM 11/22. No bowels since surgery. No bowel sounds yet Labs Reviewed: Hgb 10.9, GHct 32.8, Alb 2.2, Na 134, BUN 31, Glu 237, Mag 2.6 Meds Noted: Fentanyl, versed, Levophed, LR Skin: Wound vac to abdomen Additional Notes: Surgery MD to order TPn when ready. Clinmix 5/15 E with lipids @ goal rate 60 ml/h to provide 1522 kcal, 72 g protein, 1690 ml total volume. Will continue to follow Will monitor weight, labs, skin, diet orders, meds every Thursday and Thursday.
--- NOTE | 2024-11-25 11:02 | WPDINTPN ---
Progress Note: A&P Assessment and Plan (1) Acute hypoxic respiratory failure: Code(s): J96.01 - Acute respiratory failure with hypoxia Status: Acute Assessment and Plan: Acute respiratory failure likely related to SIRS/sepsis -11/22: CTA chest: No large central PE, small right pleural effusion, dependent atelectasis, ascites, free intraperitoneal air in the upper abdomen correlate for some recent surgery -patient was initially placed on 10 L nasal cannula, now on high-flow therapy 60 L flow rate and 77% FiO2 -patient significantly tachypneic, breathing 40+ times a minute, with O2 side of 90-92% -11/23: Intubated in the ICU -chest x-ray and ABGs reviewed this morning, ventilator adjusted, increased PEEP to 12 and FiO2 to 70%, wean FiO2 to maintain O2 sats greater than 92% -continue bronchodilators -sedated with fentanyl and Versed infusion, maintain RASS of -2 for now -decrease IV fluids (2) Septic shock: Code(s): A41.9 - Sepsis, unspecified organism; R65.21 - Severe sepsis with septic shock Status: Acute Assessment and Plan: Patient POD #3, tachypneic with hypoxic respiratory failure, lactic acidosis, increasing WBC count, anion gap metabolic acidosis -initial lactic acids were elevated on 11/24/2023 when patient was brought to the ICU, adequately fluid-resuscitated before patient was taken to the OR -likely related to SIRS/severe sepsis secondary to ruptured appendicitis -11/22: CT scan of the abdomen and pelvis this morning showed postop changes consider the since surgery likely appendectomy, no abscess identified. Small pleural effusion with dependent atelectasis -11/23: Repeat CT scan of the abdomen and pelvis without contrast showed increasing free intraperitoneal air suspicious for bowel leak. Increasing fluid in the mesentery with ascites involving the perihepatic space. No discrete abscess identified. Increasing consolidation of the lower lobes which may represent atelectasis or pneumonia. Developing small pleural effusions -discussed CT results with surgeon, - 11/23: Exploratory laparotomy with ileocolic resection for bowel perforation (cecal perforation) with spillage of bowel contents in the abdominal cavity -currently on norepinephrine, Ruddy-Synephrine, vasopressin, will maintain MAP > 65 mmHg or SBP> 100 mmHg -started stressed to steroids -continue Zosyn (11/20) and micafungin (11/24) due to spillage of bowel contents secondary to bowel perforation in the abdominal cavity, and given that patient is febrile with a T-max of 101.3? -11/24: Blood cultures pending -11/24: Sputum cultures obtained and pending -11/24: Urine cultures pending -lactic acid has resolved (3) Metabolic acidosis: Code(s): E87.20 - Acidosis, unspecified Status: Acute Assessment and Plan: RESOLVED Patient developed metabolic acidosis likely related to lactic acidosis - will give additional IV fluids secondary to severe sepsis -continue urine output, renal function, electrolyte -lactic acid is normal -urine output has been adequate, Normal creatinine for now (4) Status post appendectomy: Onset Date: 11/20/24 Code(s): Z90.49 - Acquired absence of other specified parts of digestive tract Status: Acute Assessment and Plan: 11/20: Discussed with surgery, NG tube will be inserted due to abdominal distension 11/23: Exploratory laparotomy with ileocolic resection for bowel perforation (cecal perforation) with spillage of bowel contents in the abdominal cavity 11/24: Wound VAC placed Treatment plans as above -pain control with fentanyl infusion (5) Hyperglycemia: Code(s): R73.9 - Hyperglycemia, unspecified Status: Acute Assessment and Plan: Related to stress response and/or steroids - Plan DVT prophylaxis: Lovenox Stress ulcer prophylaxis: Protonix Nutrition: NPO Code Status: Full code Critical Care Time Spent: 34 minutes Discussed with patient's sister GABRIELA Charles, updated her with patient's condition plan of care. She had patient is only on 1 pressor to this morning, wound will put, acidosis has resolved, kidney functions and normal. I answered all her questions Due to a high probability of clinically significant, life threatening deterioration, the patient required my highest level of preparedness to intervene emergently and I personally spent this critical care time directly and personally managing the patient. This critical care time included obtaining a history; examining the patient; pulse oximetry; ordering and review of studies; arranging urgent treatment with development of a management plan; evaluation of patient's response to treatment; frequent reassessment; and discussions with other providers. It was exclusive of separately billable procedures and treating other patients and teaching time. Please see Assessment and Plan section and the rest of the note for further information on patient assessment and treatment This dictation may have been done utilizing a voice recognition system. Attempts have been made to correct errors. However, there may be uncorrected grammatical, spelling, and recognitions errors present. Subjective Date/time seen: 11/25/24 11:02 Interval history: Reason for consult: Acute hypoxic respiratory failure requiring intubation and mechanical ventilation, status post appendicectomy 11/22/2024, septic shock 11/23: Exploratory laparotomy with ileocolic resection for bowel perforation (cecal perforation) with spillage of bowel contents in the abdominal cavity 11/25/2024: Patient seen and examined the ICU, remains intubated on CMV mode of ventilation, peep of 10, 70% FiO2. Sedated with fentanyl and Versed infusion. Does not open his eyes and follows commands. Remains on Levophed only, OFF Ruddy-Synephrine and vasopressin. Lactic acid is 1.2, adequate urine output. T-max 100.6? overnight Review of Systems Review of Systems: ROS unobtainable: Yes unobtainable due to endotracheal tube, unobtainable due to medical condition and unobtainable due to mental status Exam Narrative: General: Intubated in singing in acute distress HEENT:? Pupils pinpoint and sluggish, sclera is clear Neck:? Supple Respiratory:? Coarse breath sounds bilaterally, decreased at bases, adequate air entry, no wheezing Cardiac:? S1-S2 is normal, normal sinus rhythm Abdomen:? Abdominal is soft, nondistended, midline incision with dressing in place, unable to hear any bowel sounds Extremities:? No edema, palpable pedal pulses, warm extremities Neuro:? Intubated, sedated, does not open his eyes or follow simple commands Skin:? Warm and dry Psych:? Unable to assess at this time Objective Data Vital Signs Vital Signs: Vital Signs - 24 hr 11/24/24 11:09 11/24/24 12:00 11/24/24 12:00 Temperature 101.4 F H Pulse Rate 83 81 80 Respiratory Rate 26 H Blood Pressure 125/77 108/53 L Pulse Oximetry 95 95 Oxygen Delivery Mechanical Ventilation Fraction of Inspired Oxygen 60 11/24/24 12:11/24/24 12:11/24/24 12:00 Temperature Pulse Rate 83 Respiratory Rate Blood Pressure Pulse Oximetry 95 Oxygen Delivery Mechanical Ventilation Fraction of Inspired Oxygen 60 60 11/24/24 12:00 11/24/24 12:00 11/24/24 12:00 Temperature Pulse Rate 82 82 82 Respiratory Rate 26 H Blood Pressure 125/77 125/77 Pulse Oximetry Oxygen Delivery Fraction of Inspired Oxygen 11/24/24 12:00 11/24/24 12:00 11/24/24 13:46 Temperature Pulse Rate 82 82 82 Respiratory Rate 26 H Blood Pressure 125/77 105/53 L Pulse Oximetry Oxygen Delivery Fraction of Inspired Oxygen 11/24/24 13:46 11/24/24 14:00 11/24/24 14:00 Temperature Pulse Rate 82 77 82 Respiratory Rate 26 H Blood Pressure 105/53 L Pulse Oximetry Oxygen Delivery Fraction of Inspired Oxygen 11/24/24 14:00 11/24/24 14:00 11/24/24 14:00 Temperature Pulse Rate 82 82 82 Respiratory Rate Blood Pressure 96/49 L 96/49 L 96/49 L Pulse Oximetry Oxygen Delivery Fraction of Inspired Oxygen 11/24/24 14:10 11/24/24 14:10 11/24/24 14:19 Temperature Pulse Rate 78 78 76 Respiratory Rate 26 H 26 H 26 H Blood Pressure Pulse Oximetry Oxygen Delivery Fraction of Inspired Oxygen 11/24/24 14:22 11/24/24 14:31 11/24/24 15:16 Temperature Pulse Rate 75 78 75 Respiratory Rate 26 H Blood Pressure 108/56 L Pulse Oximetry 93 Oxygen Delivery Mechanical Ventilation Fraction of Inspired Oxygen 60 11/24/24 15:38 11/24/24 16:00 11/24/24 16:00 Temperature Pulse Rate 75 79 78 Respiratory Rate 26 H Blood Pressure 108/56 L 106/54 L Pulse Oximetry Oxygen Delivery Fraction of Inspired Oxygen 11/24/24 16:00 11/24/24 16:00 11/24/24 16:00 Temperature Pulse Rate 77 79 78 Respiratory Rate 26 H Blood Pressure 105/54 L 105/54 L Pulse Oximetry Oxygen Delivery Fraction of Inspired Oxygen 11/24/24 16:00 11/24/24 16:00 11/24/24 16:00 Temperature 101.3 F H Pulse Rate 77 Respiratory Rate 18 Blood Pressure 108/54 L 107/53 L Pulse Oximetry 93 96 Oxygen Delivery Mechanical Ventilation Fraction of Inspired Oxygen 60 11/24/24 16:00 11/24/24 16:00 11/24/24 17:00 Temperature Pulse Rate 80 74 Respiratory Rate 26 H Blood Pressure Pulse Oximetry Oxygen Delivery Fraction of Inspired Oxygen 60 11/24/24 17:00 11/24/24 17:38 11/24/24 18:00 Temperature Pulse Rate 74 70 80 Respiratory Rate 26 H Blood Pressure Pulse Oximetry 93 Oxygen Delivery Mechanical Ventilation Fraction of Inspired Oxygen 60 11/24/24 18:00 11/24/24 18:00 11/24/24 18:00 Temperature Pulse Rate 82 81 81 Respiratory Rate 26 H Blood Pressure 98/50 L 99/50 L 98/49 L Pulse Oximetry 90 Oxygen Delivery Fraction of Inspired Oxygen 11/24/24 18:00 11/24/24 18:00 11/24/24 18:00 Temperature Pulse Rate 80 82 81 Respiratory Rate 26 H 26 H Blood Pressure 98/49 L Pulse Oximetry Oxygen Delivery Fraction of Inspired Oxygen 11/24/24 18:54 11/24/24 19:27 11/24/24 19:29 Temperature Pulse Rate 81 73 Respiratory Rate 26 H Blood Pressure Pulse Oximetry 90 Oxygen Delivery Mechanical Ventilation Fraction of Inspired Oxygen 70 70 11/24/24 19:30 11/24/24 20:00 11/24/24 20:00 Temperature 101 F H Pulse Rate 70 71 Respiratory Rate 26 H Blood Pressure 112/55 L 113/55 L Pulse Oximetry 93 Oxygen Delivery Fraction of Inspired Oxygen 70 11/24/24 20:00 11/24/24 20:00 11/24/24 20:00 Temperature Pulse Rate 71 71 71 Respiratory Rate 26 H Blood Pressure 113/56 L 113/53 L Pulse Oximetry Oxygen Delivery Fraction of Inspired Oxygen 11/24/24 20:00 11/24/24 20:25 11/24/24 20:25 Temperature Pulse Rate 71 75 75 Respiratory Rate 26 H 26 H Blood Pressure Pulse Oximetry 93 Oxygen Delivery Mechanical Ventilation Fraction of Inspired Oxygen 70 11/24/24 20:40 11/24/24 21:00 11/24/24 21:00 Temperature 100.9 F H Pulse Rate 73 72 70 Respiratory Rate 26 H 26 H Blood Pressure 109/53 L 108/51 L Pulse Oximetry 93 Oxygen Delivery Fraction of Inspired Oxygen 11/24/24 21:32 11/24/24 22:00 11/24/24 22:00 Temperature Pulse Rate 70 74 74 Respiratory Rate 6 L Blood Pressure 105/52 L Pulse Oximetry Oxygen Delivery Fraction of Inspired Oxygen 11/24/24 22:00 11/24/24 22:00 11/24/24 22:34 Temperature Pulse Rate 74 74 74 Respiratory Rate 26 H Blood Pressure 107/53 L 107/53 L Pulse Oximetry Oxygen Delivery Fraction of Inspired Oxygen 11/24/24 23:30 11/25/24 00:00 11/25/24 00:00 Temperature Pulse Rate 71 74 74 Respiratory Rate 26 H Blood Pressure 108/54 L Pulse Oximetry 92 93 Oxygen Delivery Mechanical Ventilation Mechanical Ventilation Fraction of Inspired Oxygen 70 60 11/25/24 00:00 11/25/24 00:00 11/25/24 00:00 Temperature 100.6 F H Pulse Rate 74 66 Respiratory Rate 26 H Blood Pressure 108/54 L Pulse Oximetry 92 Oxygen Delivery Fraction of Inspired Oxygen 60 11/25/24 00:00 11/25/24 00:00 11/25/24 00:00 Temperature Pulse Rate 66 66 66 Respiratory Rate 26 H Blood Pressure 108/54 L 108/54 L Pulse Oximetry Oxygen Delivery Fraction of Inspired Oxygen 11/25/24 00:00 11/25/24 02:00 11/25/24 02:00 Temperature Pulse Rate 66 76 76 Respiratory Rate 26 H Blood Pressure 101/48 L 101/48 L Pulse Oximetry Oxygen Delivery Fraction of Inspired Oxygen 11/25/24 02:00 11/25/24 02:00 11/25/24 02:00 Temperature Pulse Rate 76 76 76 Respiratory Rate 26 H 26 H Blood Pressure Pulse Oximetry Oxygen Delivery Fraction of Inspired Oxygen 11/25/24 02:00 11/25/24 02:00 11/25/24 02:02 Temperature 100.3 F H Pulse Rate 76 76 76 Respiratory Rate 26 H Blood Pressure 101/48 L 101/48 L 101/48 L Pulse Oximetry 92 Oxygen Delivery Fraction of Inspired Oxygen 11/25/24 02:10 11/25/24 02:14 11/25/24 02:22 Temperature Pulse Rate 75 75 77 Respiratory Rate 29 H 29 H Blood Pressure Pulse Oximetry 92 Oxygen Delivery Mechanical Ventilation Fraction of Inspired Oxygen 70 11/25/24 04:00 11/25/24 04:00 11/25/24 04:00 Temperature Pulse Rate 77 73 77 Respiratory Rate 29 H Blood Pressure 112/59 L Pulse Oximetry 92 Oxygen Delivery Mechanical Ventilation Fraction of Inspired Oxygen 70 11/25/24 04:00 11/25/24 04:00 11/25/24 04:00 Temperature 100.3 F H Pulse Rate 71 75 Respiratory Rate 26 H Blood Pressure 110/58 L 110/57 L Pulse Oximetry 92 Oxygen Delivery Fraction of Inspired Oxygen 70 11/25/24 04:00 11/25/24 04:00 11/25/24 04:00 Temperature Pulse Rate 71 71 71 Respiratory Rate 26 H Blood Pressure 110/57 L 110/57 L Pulse Oximetry Oxygen Delivery Fraction of Inspired Oxygen 11/25/24 04:49 11/25/24 05:14 11/25/24 06:00 Temperature Pulse Rate 69 71 93 Respiratory Rate 26 H 26 H Blood Pressure Pulse Oximetry 92 Oxygen Delivery Mechanical Ventilation Fraction of Inspired Oxygen 70 11/25/24 06:00 11/25/24 06:00 11/25/24 06:00 Temperature Pulse Rate 93 91 91 Respiratory Rate 26 H Blood Pressure 94/50 L 94/50 L Pulse Oximetry Oxygen Delivery Fraction of Inspired Oxygen 11/25/24 06:00 11/25/24 06:00 11/25/24 06:00 Temperature 100.2 F H Pulse Rate 91 100 100 Respiratory Rate 26 H Blood Pressure 94/50 L 90/56 L Pulse Oximetry 92 Oxygen Delivery Fraction of Inspired Oxygen 11/25/24 07:46 11/25/24 07:46 11/25/24 07:59 Temperature 100.2 F H Pulse Rate 72 78 74 Respiratory Rate 26 H 26 H Blood Pressure 121/73 Pulse Oximetry 92 91 Oxygen Delivery Mechanical Ventilation Fraction of Inspired Oxygen 70 11/25/24 08:00 11/25/24 08:00 11/25/24 08:00 Temperature Pulse Rate 84 75 75 Respiratory Rate 27 H Blood Pressure 104/52 L 104/52 L Pulse Oximetry Oxygen Delivery Fraction of Inspired Oxygen 11/25/24 08:00 11/25/24 08:00 11/25/24 08:00 Temperature Pulse Rate 75 75 Respiratory Rate 27 H Blood Pressure 104/52 L Pulse Oximetry Oxygen Delivery Fraction of Inspired Oxygen 70 11/25/24 08:00 11/25/24 08:00 11/25/24 08:15 Temperature Pulse Rate 82 80 Respiratory Rate Blood Pressure 111/57 L Pulse Oximetry 91 Oxygen Delivery Mechanical Ventilation Fraction of Inspired Oxygen 70 11/25/24 08:16 11/25/24 08:18 11/25/24 08:31 Temperature Pulse Rate 75 87 Respiratory Rate 26 H Blood Pressure 102/53 L Pulse Oximetry Oxygen Delivery Fraction of Inspired Oxygen 70 11/25/24 08:31 11/25/24 08:32 11/25/24 09:24 Temperature Pulse Rate 86 85 84 Respiratory Rate Blood Pressure 104/53 L 110/57 L Pulse Oximetry 91 Oxygen Delivery Mechanical Ventilation Fraction of Inspired Oxygen 70 11/25/24 10:00 11/25/24 10:00 11/25/24 10:00 Temperature 100.7 F H Pulse Rate 86 89 89 Respiratory Rate 26 H 26 H Blood Pressure 109/67 Pulse Oximetry 92 Oxygen Delivery Fraction of Inspired Oxygen 11/25/24 10:00 11/25/24 10:00 11/25/24 10:46 Temperature Pulse Rate 89 85 92 Respiratory Rate 26 H Blood Pressure 114/59 L 110/56 L Pulse Oximetry Oxygen Delivery Fraction of Inspired Oxygen Intake/Output Intake/Output: Intake & Output 11/22/24 11/23/24 11/24/24 11/25/24 23:59 23:59 23:59 23:59 Intake Total 4435 2342.8 3160.6 2180.1 Output Total 2935 800 1700 1070 Balance 1500 1542.8 1460.6 1110.1 Meds/Results Medications: Active Medications Generic Name Dose Route Start Last Admin Trade Name Freq PRN Reason Stop Dose Admin Dextrose 12.5 gm 11/24/24 08:03 Dextrose 50% 25 Gm/50 Ml Syringe IV PUSH PRN PRN Hypoglycemia Protocol Enoxaparin Sodium 40 mg 11/21/24 09:00 11/25/24 08:03 Enoxaparin 40 Mg/0.4 Ml Syringe SUB-Q 40 mg DAILY TAMICA Administration Glucagon 1 mg 11/24/24 08:03 Glucagon For Inj 1 Mg Vial IM PRN PRN Hypoglycemia Protocol Glucose 15 gm 11/24/24 08:03 Glucose Oral Gel 15 Gm Of Glucse In 37.5 Gm Tube PO PRN PRN Hypoglycemia Protocol Hydrocortisone Sodium Succinate 100 mg 11/24/24 10:55 11/25/24 06:37 Hydrocortisone Sodium Succinate 100 Mg/2 Ml Vial IV PUSH 100 mg Q8HR TAMICA Administration Piperacillin Sod/Tazobactam 50 mls @ 100 mls/hr 11/21/24 00:00 11/25/24 06:37 Sod 3.375 gm/ Sodium Chloride IVPB 100 mls/hr Q6H TAMICA Administration Fentanyl Citrate 2,500 mcg in 250 mls @ 7.5 mls/hr 11/23/24 14:05 11/25/24 10:00 Fentanyl 2,500 Mcg/Ns 250 Ml IV CONT 75 mcg/hr .[id number] TAMICA 7.5 mls/hr Titration Protocol 75 MCG/HR Vasopressin 100 units/ 100 mls @ 0 mls/hr 11/23/24 21:45 11/25/24 10:00 Dextrose IV CONT 0 units/min .Q0M TAMICA 0 mls/hr Titration Protocol 0 UNITS/MIN Midazolam HCl 100 mg in 100 mls @ 2 mls/hr 11/23/24 21:45 11/25/24 10:00 Versed 100 Mg/Ns 100 Ml IV CONT 2 mg/hr .Q50H TAMICA 2 mls/hr Titration Protocol 2 MG/HR Norepinephrine Bitartrate 8 mg in 250 mls @ 11.25 mls/hr 11/23/24 23:25 11/25/24 10:46 Levophed 8 Mg/D5w 250 Ml IV CONT 6 mcg/min .[id number] TAMICA 11.25 mls/hr Titration Protocol 6 MCG/MIN Micafungin Sodium 100 mg/ 100 mls @ 100 mls/hr 11/24/24 09:00 11/25/24 09:02 Sodium Chloride IVPB Infused DAILY TAMICA Infusion Dextrose 1,000 mls @ 100 mls/hr 11/24/24 08:03 Dextrose 5% 1,000 Ml IVPB PRN PRN Hypoglycemia Protocol Lactated Ringer's 1,000 mls @ 75 mls/hr 11/24/24 09:10 11/25/24 08:19 Lr - Lactated Ringers Iv IV CONT 75 mls/hr .[id number] TAMICA Infusion Insulin Aspart 3 - 6 units 11/24/24 09:00 11/25/24 08:02 Insulin Aspart (*Bkc) 100 Units/Ml SUB-Q 3 units Q4H TAMICA Administration Protocol Insulin Glargine 8 units 11/25/24 10:30 11/25/24 10:46 Insulin Glargine (*Bkc) 100 Units/Ml SUB-Q 8 units DAILY TAMICA Administration Ipratropium [place] 0.5 mg 11/23/24 14:00 11/25/24 07:45 Ipratropium Br 0.02% Inh Soln 0.5 Mg/2.5 Ml Vial INHALATION 0.5 mg Q6HRT TAMICA Administration Levalbuterol HCl 0.63 mg 11/23/24 14:00 11/25/24 07:45 Levalbuterol Neb 1.25 Mg/3 Ml INHALATION 0.63 mg Q6HRT TAMICA Administration Midazolam HCl 2 mg 11/23/24 21:45 Midazolam Hcl (*Crx) 2 Mg/2 Ml Vial IV PUSH Q5M PRN ventilator asynchrony Multi-Ingred Cream/Lotion/Oil/Oint 1 applic 11/23/24 21:00 11/25/24 08:03 Mineral Oil/White Petrolatum Ointment EACH EYE 1 applic Q12HR TAMICA Administration Pantoprazole Sodium 40 mg 11/24/24 09:00 11/25/24 08:02 Pantoprazole Sodium Iv 40 Mg Vial IV PUSH 40 mg QAM TAMICA Administration Sodium Chloride 10 ml 11/23/24 14:00 11/25/24 07:00 Central Line Flush IV PUSH 10 ml Q8HR TAMICA Administration Sodium Chloride 10 ml 11/23/24 13:39 Central Line Flush IV PUSH PRN PRN with TPN bag changes Sodium Chloride 20 ml 11/23/24 13:39 Central Line Flush IV PUSH PRN PRN after blood draws Radiology Results: ITS Impressions Chest CTA 11/23/24 05:53 IMPRESSION: 1. Free intraperitoneal air in the upper abdomen. Correlate for recent surgery. In the absence of known surgery this is most likely secondary to bowel perforation. Clinically correlate. 2: No large central pulmonary embolism. Limited evaluation of the secondary and tertiary pulmonary arteries. 3: Small right pleural effusion. Dependent atelectasis. 4: Ascites. Venous Doppler Study 11/23/24 09:56 Impression: No evidence of deep venous thrombosis Abdomen/Pelvis CT 11/23/24 13:00 IMPRESSION: 1. Increasing free intraperitoneal air 11/22/2024, suspicious for bowel leak. Increasing fluid in the mesentery with ascites involving the perihepatic space. No discrete abscess identified. Consider correlation with contrast-enhanced CT abdomen. 2: Increasing consolidation of the lower lobes which may represent atelectasis or pneumonia. 3: Developing small pleural effusions. Abdomen X-Ray 11/23/24 14:04 IMPRESSION: 1: NG tube tip in the stomach. 2: Bibasilar airspace disease, edema versus pneumonia. Chest X-Ray 11/25/24 06:07 Impression: 1: Stable pulmonary edema with right pleural effusion. 2: Persistent unchanged right basilar consolidation may represent edema, atelectasis and/or pneumonia. Labs Labs: Laboratory Results - last 24 hr 11/24/24 11/24/24 11/24/24 11:22 15:56 21:19 WBC RBC Hgb Hct MCV MCH MCHC RDW Plt Count MPV Immature Gran % (Auto) Neut % (Auto) Lymph % (Auto) [place] % (Auto) Eos % (Auto) Baso % (Auto) Lymph # (Auto) [place] # (Auto) Eos # (Auto) Baso # (Auto) Abs Immat Gran (auto) Absolute Neuts (auto) Absolute Nucleated RBC Total Counted Neutrophils % (Manual) Band Neutrophils % Lymphocytes % (Manual) Monocytes % (Manual) Nucleated RBC % Abs Neuts (Manual) Abs Lymphs (Manual) Abs Monocytes (Manual) Smudge Cells Platelet Estimate Hypochromasia Anisocytosis Schistocytes PT INR APTT Puncture Site ABG pH ABG pCO2 ABG pO2 ABG PO2/FiO2 Ratio ABG HCO3 ABG O2 Saturation ABG O2 Content ABG Base Excess A-a Gradient Oxyhemoglobin Carboxyhemoglobin Methemoglobin Reduced Hemoglobin Total Hemoglobin O2 Delivery Device O2 Liters/Min Minute Volume Vent Rate Vent Mode FiO2 Tidal Volume PEEP Peak Inspir Pressure Pressure Support Sodium Potassium Chloride Carbon Dioxide Anion Gap BUN Creatinine Estim Creat Clear Calc Estimated GFR Glucose POC Capillary Glucose 231 H 195 H 216 H Lactic Acid Calcium Phosphorus Magnesium Total Bilirubin AST ALT Alkaline Phosphatase Total Protein Albumin 11/25/24 11/25/24 04:53 07:09 WBC 23.5 H RBC 3.37 L Hgb 10.9 L Hct 32.8 L MCV 97.3 MCH 32.3 MCHC 33.2 RDW 13.4 Plt Count 182 MPV 9.5 Immature Gran % (Auto) Not Reportable Neut % (Auto) Not Reportable Lymph % (Auto) Not Reportable [place] % (Auto) Not Reportable Eos % (Auto) Not Reportable Baso % (Auto) Not Reportable Lymph # (Auto) Not Reportable [place] # (Auto) Not Reportable Eos # (Auto) Not Reportable Baso # (Auto) Not Reportable Abs Immat Gran (auto) Not Reportable Absolute Neuts (auto) Not Reportable Absolute Nucleated RBC Not Reportable Total Counted 100 Neutrophils % (Manual) 88 H Band Neutrophils % 4 Lymphocytes % (Manual) 5.0 L Monocytes % (Manual) 3 Nucleated RBC % Not Reportable Abs Neuts (Manual) 21.62 H Abs Lymphs (Manual) 1.17 Abs Monocytes (Manual) 0.70 Smudge Cells Present Platelet Estimate Adequate Hypochromasia 1+ Anisocytosis 1+ Schistocytes None seen PT 14.0 INR 1.1 APTT 28.8 Puncture Site Artline ABG pH 7.462 H ABG pCO2 37.1 ABG pO2 78.7 L ABG PO2/FiO2 Ratio 1.12 ABG HCO3 25.9 ABG O2 Saturation 96.3 ABG O2 Content 15.5 L ABG Base Excess 2.2 A-a Gradient 380.5 Oxyhemoglobin 95.2 Carboxyhemoglobin 0.1 Methemoglobin 0.3 Reduced Hemoglobin 4.4 Total Hemoglobin 11.5 L O2 Delivery Device Ventilator O2 Liters/Min Not Reportable Minute Volume Not Reportable Vent Rate 26 Vent Mode Cmv FiO2 70 Tidal Volume 450 PEEP 10 Peak Inspir Pressure Not Reportable Pressure Support Not Reportable Sodium 134 L Potassium 4.1 Chloride 105 Carbon Dioxide 25 Anion Gap 4 BUN 31 H Creatinine 0.94 Estim Creat Clear Calc 98 Estimated GFR > 60 Glucose 237 H POC Capillary Glucose 237 H Lactic Acid 1.2 Calcium 8.0 L Phosphorus 2.6 Magnesium 2.6 H Total Bilirubin 1.4 H AST 42 ALT 33 Alkaline Phosphatase 91 Total Protein 4.8 L Albumin 2.2 L Quality VTE Prophylaxis VTE prophylaxis: pharmacologic ordered (Lovenox 40 mg subQ daily)
--- NOTE | 2024-11-25 12:59 | P.PNGS_ITS ---
Progress Note: A&P Assessment and Plan (1) Severe sepsis: Code(s): A41.9 - Sepsis, unspecified organism; R65.20 - Severe sepsis without septic shock Status: Acute Assessment and Plan: POD2 s/p exploratory laparotomy, ileocolic resection. Patient was again febrile and tachypneic overnight. Heart rate has normalized. Mildly hypotensive, but stable. Currently still intubated. Dropped down to only 1 pressor. Wound VAC intact and functioning well with small amount of serosanguineous fluid in canister. Patient's family still expressing wishes to transfer to [place] for convenience when patient is stable. Continue with management per denial management representative. Next wound VAC change will be on Monday 11/27 and he will continue on a Thursday/Thursday/Thursday schedule. (2) Appendicitis: Qualifiers: Acute appendicitis type: with generalized peritonitis Appendicitis abscess presence: without abscess Appendicitis gangrene presence: with gangrene Appendicitis perforation presence: with perforation Appendicitis type: acute appendicitis Qualified Code(s): K35.201 - Acute appendicitis with generalized peritonitis, with perforation, without abscess Code(s): K37 - Unspecified appendicitis Status: Acute (3) Closed right fibular fracture: Qualifiers: Encounter type: subsequent encounter Code(s): S82.401A - Unspecified fracture of shaft of right fibula, initial encounter for closed fracture Status: Acute (4) Status post appendectomy: Onset Date: 11/20/24 Code(s): Z90.49 - Acquired absence of other specified parts of digestive tract Status: Acute (5) Acute hypoxic respiratory failure: Code(s): J96.01 - Acute respiratory failure with hypoxia Status: Acute Plan Discussed patient's case and plan of care with Dr. Cortez. Subjective Subjective Date/Time Seen: 11/25/24 12:59 Post Op day: 2 Interval history: Patient status fairly unchanged from yesterday. Remains intubated on CMV mode of and ventilation. Sedated with fentanyl and Versed. He has continued to be febrile with temperatures around 100.2. Tachypneic. Blood pressure readings have been soft, but stable. WBC 23.5, up from 20.1. Patient on Levophed, but off vasopressin. Lactic acid is 1.2. Exam GI: Inspection: normal to inspection, no abdominal wall ecchymosis, distended, incision (Dressing dry and intact, serosanguineous fluid per SRINATH drain), obesity, no scars, visible herniation (umbilical) and other (mildly distended) Auscultation: normal bowel sounds (more bowel sounds today) and Hypoactive bowel sounds present Other: Wound VAC intact and suctioning well. With small amount of serosanguineous fluid in canister. Mild redness surrounding wound. All other laparoscopic incisions healing well. Objective Data Vital Signs Vital Signs: Vital Signs - 24 hr 11/24/24 13:46 11/24/24 13:46 11/24/24 14:00 Temperature Pulse Rate 82 82 77 Respiratory Rate Blood Pressure 105/53 L 105/53 L Pulse Oximetry Oxygen Delivery Fraction of Inspired Oxygen 11/24/24 14:00 11/24/24 14:00 11/24/24 14:00 Temperature Pulse Rate 82 82 82 Respiratory Rate 26 H Blood Pressure 96/49 L 96/49 L Pulse Oximetry Oxygen Delivery Fraction of Inspired Oxygen 11/24/24 14:00 11/24/24 14:10 11/24/24 14:10 Temperature Pulse Rate 82 78 78 Respiratory Rate 26 H 26 H Blood Pressure 96/49 L Pulse Oximetry Oxygen Delivery Fraction of Inspired Oxygen 11/24/24 14:19 11/24/24 14:22 11/24/24 14:31 Temperature Pulse Rate 76 75 78 Respiratory Rate 26 H 26 H Blood Pressure Pulse Oximetry 93 Oxygen Delivery Mechanical Ventilation Fraction of Inspired Oxygen 60 11/24/24 15:16 11/24/24 15:38 11/24/24 16:00 Temperature Pulse Rate 75 75 79 Respiratory Rate Blood Pressure 108/56 L 108/56 L 106/54 L Pulse Oximetry Oxygen Delivery Fraction of Inspired Oxygen 11/24/24 16:00 11/24/24 16:00 11/24/24 16:00 Temperature Pulse Rate 78 77 79 Respiratory Rate 26 H Blood Pressure 105/54 L 105/54 L Pulse Oximetry Oxygen Delivery Fraction of Inspired Oxygen 11/24/24 16:00 11/24/24 16:00 11/24/24 16:00 Temperature 101.3 F H Pulse Rate 78 77 Respiratory Rate 26 H 18 Blood Pressure 108/54 L Pulse Oximetry 93 96 Oxygen Delivery Mechanical Ventilation Fraction of Inspired Oxygen 60 11/24/24 16:00 11/24/24 16:00 11/24/24 16:00 Temperature Pulse Rate 80 Respiratory Rate Blood Pressure 107/53 L Pulse Oximetry Oxygen Delivery Fraction of Inspired Oxygen 60 11/24/24 17:00 11/24/24 17:00 11/24/24 17:38 Temperature Pulse Rate 74 74 70 Respiratory Rate 26 H 26 H Blood Pressure Pulse Oximetry 93 Oxygen Delivery Mechanical Ventilation Fraction of Inspired Oxygen 60 11/24/24 18:00 11/24/24 18:00 11/24/24 18:00 Temperature Pulse Rate 80 82 81 Respiratory Rate 26 H Blood Pressure 98/50 L 99/50 L Pulse Oximetry 90 Oxygen Delivery Fraction of Inspired Oxygen 11/24/24 18:00 11/24/24 18:00 11/24/24 18:00 Temperature Pulse Rate 81 80 82 Respiratory Rate 26 H Blood Pressure 98/49 L 98/49 L Pulse Oximetry Oxygen Delivery Fraction of Inspired Oxygen 11/24/24 18:00 11/24/24 18:54 11/24/24 19:27 Temperature Pulse Rate 81 81 Respiratory Rate 26 H 26 H Blood Pressure Pulse Oximetry 90 Oxygen Delivery Mechanical Ventilation Fraction of Inspired Oxygen 70 70 11/24/24 19:29 11/24/24 19:30 11/24/24 20:00 Temperature 101 F H Pulse Rate 73 70 Respiratory Rate 26 H Blood Pressure 112/55 L Pulse Oximetry 93 Oxygen Delivery Fraction of Inspired Oxygen 70 11/24/24 20:00 11/24/24 20:00 11/24/24 20:00 Temperature Pulse Rate 71 71 71 Respiratory Rate Blood Pressure 113/55 L 113/56 L 113/53 L Pulse Oximetry Oxygen Delivery Fraction of Inspired Oxygen 11/24/24 20:00 11/24/24 20:00 11/24/24 20:25 Temperature Pulse Rate 71 71 75 Respiratory Rate 26 H 26 H 26 H Blood Pressure Pulse Oximetry Oxygen Delivery Fraction of Inspired Oxygen 11/24/24 20:25 11/24/24 20:40 11/24/24 21:00 Temperature 100.9 F H Pulse Rate 75 73 72 Respiratory Rate 26 H 26 H Blood Pressure 109/53 L Pulse Oximetry 93 93 Oxygen Delivery Mechanical Ventilation Fraction of Inspired Oxygen 70 11/24/24 21:00 11/24/24 21:32 11/24/24 22:00 Temperature Pulse Rate 70 70 74 Respiratory Rate Blood Pressure 108/51 L 105/52 L Pulse Oximetry Oxygen Delivery Fraction of Inspired Oxygen 11/24/24 22:00 11/24/24 22:00 11/24/24 22:00 Temperature Pulse Rate 74 74 74 Respiratory Rate 6 L Blood Pressure 107/53 L 107/53 L Pulse Oximetry Oxygen Delivery Fraction of Inspired Oxygen 11/24/24 22:34 11/24/24 23:30 11/25/24 00:00 Temperature Pulse Rate 74 71 74 Respiratory Rate 26 H Blood Pressure 108/54 L Pulse Oximetry 92 Oxygen Delivery Mechanical Ventilation Fraction of Inspired Oxygen 70 11/25/24 00:00 11/25/24 00:00 11/25/24 00:00 Temperature Pulse Rate 74 74 Respiratory Rate 26 H Blood Pressure Pulse Oximetry 93 Oxygen Delivery Mechanical Ventilation Fraction of Inspired Oxygen 60 60 11/25/24 00:00 11/25/24 00:00 11/25/24 00:00 Temperature 100.6 F H Pulse Rate 66 66 66 Respiratory Rate 26 H 26 H Blood Pressure 108/54 L 108/54 L Pulse Oximetry 92 Oxygen Delivery Fraction of Inspired Oxygen 11/25/24 00:00 11/25/24 00:00 11/25/24 02:00 Temperature Pulse Rate 66 66 76 Respiratory Rate 26 H Blood Pressure 108/54 L 101/48 L Pulse Oximetry Oxygen Delivery Fraction of Inspired Oxygen 11/25/24 02:00 11/25/24 02:00 11/25/24 02:00 Temperature Pulse Rate 76 76 76 Respiratory Rate 26 H 26 H Blood Pressure 101/48 L Pulse Oximetry Oxygen Delivery Fraction of Inspired Oxygen 11/25/24 02:00 11/25/24 02:00 11/25/24 02:00 Temperature 100.3 F H Pulse Rate 76 76 76 Respiratory Rate 26 H Blood Pressure 101/48 L 101/48 L Pulse Oximetry 92 Oxygen Delivery Fraction of Inspired Oxygen 11/25/24 02:02 11/25/24 02:10 11/25/24 02:14 Temperature Pulse Rate 76 75 75 Respiratory Rate 29 H Blood Pressure 101/48 L Pulse Oximetry 92 Oxygen Delivery Mechanical Ventilation Fraction of Inspired Oxygen 70 11/25/24 02:22 11/25/24 04:00 11/25/24 04:00 Temperature Pulse Rate 77 77 73 Respiratory Rate 29 H 29 H Blood Pressure 112/59 L Pulse Oximetry 92 Oxygen Delivery Mechanical Ventilation Fraction of Inspired Oxygen 70 11/25/24 04:00 11/25/24 04:00 11/25/24 04:00 Temperature 100.3 F H Pulse Rate 77 71 Respiratory Rate 26 H Blood Pressure 110/58 L Pulse Oximetry 92 Oxygen Delivery Fraction of Inspired Oxygen 70 11/25/24 04:00 11/25/24 04:00 11/25/24 04:00 Temperature Pulse Rate 75 71 71 Respiratory Rate 26 H Blood Pressure 110/57 L 110/57 L Pulse Oximetry Oxygen Delivery Fraction of Inspired Oxygen 11/25/24 04:00 11/25/24 04:49 11/25/24 05:14 Temperature Pulse Rate 71 69 71 Respiratory Rate 26 H Blood Pressure 110/57 L Pulse Oximetry 92 Oxygen Delivery Mechanical Ventilation Fraction of Inspired Oxygen 70 11/25/24 06:00 11/25/24 06:00 11/25/24 06:00 Temperature Pulse Rate 93 93 91 Respiratory Rate 26 H 26 H Blood Pressure 94/50 L Pulse Oximetry Oxygen Delivery Fraction of Inspired Oxygen 11/25/24 06:00 11/25/24 06:00 11/25/24 06:00 Temperature Pulse Rate 91 91 100 Respiratory Rate Blood Pressure 94/50 L 94/50 L Pulse Oximetry Oxygen Delivery Fraction of Inspired Oxygen 11/25/24 06:00 11/25/24 07:46 11/25/24 07:46 Temperature 100.2 F H Pulse Rate 100 72 78 Respiratory Rate 26 H 26 H Blood Pressure 90/56 L Pulse Oximetry 92 92 Oxygen Delivery Mechanical Ventilation Fraction of Inspired Oxygen 70 11/25/24 07:59 11/25/24 08:00 11/25/24 08:00 Temperature 100.2 F H Pulse Rate 74 84 75 Respiratory Rate 26 H 27 H Blood Pressure 121/73 104/52 L Pulse Oximetry 91 Oxygen Delivery Fraction of Inspired Oxygen 11/25/24 08:00 11/25/24 08:00 11/25/24 08:00 Temperature Pulse Rate 75 75 Respiratory Rate 27 H Blood Pressure 104/52 L Pulse Oximetry Oxygen Delivery Fraction of Inspired Oxygen 70 11/25/24 08:00 11/25/24 08:00 11/25/24 08:00 Temperature Pulse Rate 75 82 Respiratory Rate Blood Pressure 104/52 L Pulse Oximetry 91 Oxygen Delivery Mechanical Ventilation Fraction of Inspired Oxygen 70 11/25/24 08:15 11/25/24 08:16 11/25/24 08:18 Temperature Pulse Rate 80 75 Respiratory Rate 26 H Blood Pressure 111/57 L Pulse Oximetry Oxygen Delivery Fraction of Inspired Oxygen 70 11/25/24 08:31 11/25/24 08:31 11/25/24 08:32 Temperature Pulse Rate 87 86 85 Respiratory Rate Blood Pressure 102/53 L 104/53 L Pulse Oximetry 91 Oxygen Delivery Mechanical Ventilation Fraction of Inspired Oxygen 70 11/25/24 09:24 11/25/24 10:00 11/25/24 10:00 Temperature 100.7 F H Pulse Rate 84 86 89 Respiratory Rate 26 H Blood Pressure 110/57 L 109/67 Pulse Oximetry 92 Oxygen Delivery Fraction of Inspired Oxygen 11/25/24 10:00 11/25/24 10:00 11/25/24 10:00 Temperature Pulse Rate 89 89 85 Respiratory Rate 26 H 26 H Blood Pressure 114/59 L Pulse Oximetry Oxygen Delivery Fraction of Inspired Oxygen 11/25/24 10:46 11/25/24 11:38 11/25/24 11:43 Temperature Pulse Rate 92 87 90 Respiratory Rate Blood Pressure 110/56 L 113/58 L Pulse Oximetry 91 Oxygen Delivery Mechanical Ventilation Fraction of Inspired Oxygen 70 11/25/24 12:00 11/25/24 12:00 11/25/24 12:00 Temperature 100.2 F H Pulse Rate 86 Respiratory Rate 22 H Blood Pressure 105/56 L Pulse Oximetry 93 93 Oxygen Delivery Mechanical Ventilation Fraction of Inspired Oxygen 75 75 11/25/24 12:00 11/25/24 12:00 11/25/24 12:00 Temperature Pulse Rate 87 88 89 Respiratory Rate 22 H 22 H Blood Pressure 109/56 L Pulse Oximetry Oxygen Delivery Fraction of Inspired Oxygen 11/25/24 12:43 11/25/24 12:50 Temperature Pulse Rate 92 87 Respiratory Rate Blood Pressure 110/83 106/57 L Pulse Oximetry Oxygen Delivery Fraction of Inspired Oxygen Intake/Output Intake/Output: Intake & Output 11/22/24 11/23/24 11/24/24 11/25/24 23:59 23:59 23:59 23:59 Intake Total 4435 2342.8 3160.6 2320.0 Output Total 2935 800 1700 1070 Balance 1500 1542.8 1460.6 1250.0 Meds/Results Medications: Active Medications Generic Name Dose Route Start Last Admin Trade Name Freq PRN Reason Stop Dose Admin Dextrose 12.5 gm 11/24/24 08:03 Dextrose 50% 25 Gm/50 Ml Syringe IV PUSH PRN PRN Hypoglycemia Protocol Enoxaparin Sodium 40 mg 11/21/24 09:00 11/25/24 08:03 Enoxaparin 40 Mg/0.4 Ml Syringe SUB-Q 40 mg DAILY TAMICA Administration Glucagon 1 mg 11/24/24 08:03 Glucagon For Inj 1 Mg Vial IM PRN PRN Hypoglycemia Protocol Glucose 15 gm 11/24/24 08:03 Glucose Oral Gel 15 Gm Of Glucse In 37.5 Gm Tube PO PRN PRN Hypoglycemia Protocol Hydrocortisone Sodium Succinate 100 mg 11/24/24 10:55 11/25/24 06:37 Hydrocortisone Sodium Succinate 100 Mg/2 Ml Vial IV PUSH 100 mg Q8HR TAMICA Administration Piperacillin Sod/Tazobactam 50 mls @ 100 mls/hr 11/21/24 00:00 11/25/24 12:08 Sod 3.375 gm/ Sodium Chloride IVPB Infused Q6H TAMICA Infusion Fentanyl Citrate 2,500 mcg in 250 mls @ 7.5 mls/hr 11/23/24 14:05 11/25/24 12:00 Fentanyl 2,500 Mcg/Ns 250 Ml IV CONT 75 mcg/hr .[id number] TAMICA 7.5 mls/hr Titration Protocol 75 MCG/HR Vasopressin 100 units/ 100 mls @ 0 mls/hr 11/23/24 21:45 11/25/24 12:00 Dextrose IV CONT 0 units/min .Q0M TAMICA 0 mls/hr Titration Protocol 0 UNITS/MIN Midazolam HCl 100 mg in 100 mls @ 2 mls/hr 11/23/24 21:45 11/25/24 12:00 Versed 100 Mg/Ns 100 Ml IV CONT 2 mg/hr .Q50H TAMICA 2 mls/hr Titration Protocol 2 MG/HR Norepinephrine Bitartrate 8 mg in 250 mls @ 5.625 mls/hr 11/23/24 23:25 11/25/24 12:50 Levophed 8 Mg/D5w 250 Ml IV CONT 3 mcg/min .Q24H TAMICA 5.63 mls/hr Titration Protocol 3 MCG/MIN Micafungin Sodium 100 mg/ 100 mls @ 100 mls/hr 11/24/24 09:00 11/25/24 09:02 Sodium Chloride IVPB Infused DAILY TAMICA Infusion Dextrose 1,000 mls @ 100 mls/hr 11/24/24 08:03 Dextrose 5% 1,000 Ml IVPB PRN PRN Hypoglycemia Protocol Lactated Ringer's 1,000 mls @ 75 mls/hr 11/24/24 09:10 11/25/24 08:19 Lr - Lactated Ringers Iv IV CONT 75 mls/hr .[id number] TAMICA Infusion Insulin Aspart 3 - 6 units 11/24/24 09:00 11/25/24 12:00 Insulin Aspart (*Bkc) 100 Units/Ml SUB-Q 3 units Q4H TAMICA Administration Protocol Insulin Glargine 8 units 11/25/24 10:30 11/25/24 10:46 Insulin Glargine (*Bkc) 100 Units/Ml SUB-Q 8 units DAILY TAMICA Administration Ipratropium Tuttle 0.5 mg 11/23/24 14:00 11/25/24 07:45 Ipratropium Br 0.02% Inh Soln 0.5 Mg/2.5 Ml Vial INHALATION 0.5 mg Q6HRT TAMICA Administration Levalbuterol HCl 0.63 mg 11/23/24 14:00 11/25/24 07:45 Levalbuterol Neb 1.25 Mg/3 Ml INHALATION 0.63 mg Q6HRT TAMICA Administration Midazolam HCl 2 mg 11/23/24 21:45 Midazolam Hcl (*Crx) 2 Mg/2 Ml Vial IV PUSH Q5M PRN ventilator asynchrony Multi-Ingred Cream/Lotion/Oil/Oint 1 applic 11/23/24 21:00 11/25/24 08:03 Mineral Oil/White Petrolatum Ointment EACH EYE 1 applic Q12HR TAMICA Administration Pantoprazole Sodium 40 mg 11/24/24 09:00 11/25/24 08:02 Pantoprazole Sodium Iv 40 Mg Vial IV PUSH 40 mg QAM TAMICA Administration Sodium Chloride 10 ml 11/23/24 14:00 11/25/24 07:00 Central Line Flush IV PUSH 10 ml Q8HR TAMICA Administration Sodium Chloride 10 ml 11/23/24 13:39 Central Line Flush IV PUSH PRN PRN with TPN bag changes Sodium Chloride 20 ml 11/23/24 13:39 Central Line Flush IV PUSH PRN PRN after blood draws Radiology Results: ITS Impressions Chest CTA 11/23/24 05:53 IMPRESSION: 1. Free intraperitoneal air in the upper abdomen. Correlate for recent surgery. In the absence of known surgery this is most likely secondary to bowel perforation. Clinically correlate. 2: No large central pulmonary embolism. Limited evaluation of the secondary and tertiary pulmonary arteries. 3: Small right pleural effusion. Dependent atelectasis. 4: Ascites. Venous Doppler Study 11/23/24 09:56 Impression: No evidence of deep venous thrombosis Abdomen/Pelvis CT 11/23/24 13:00 IMPRESSION: 1. Increasing free intraperitoneal air 11/22/2024, suspicious for bowel leak. Increasing fluid in the mesentery with ascites involving the perihepatic space. No discrete abscess identified. Consider correlation with contrast-enhanced CT abdomen. 2: Increasing consolidation of the lower lobes which may represent atelectasis or pneumonia. 3: Developing small pleural effusions. Abdomen X-Ray 11/23/24 14:04 IMPRESSION: 1: NG tube tip in the stomach. 2: Bibasilar airspace disease, edema versus pneumonia. Chest X-Ray 11/25/24 06:07 Impression: 1: Stable pulmonary edema with right pleural effusion. 2: Persistent unchanged right basilar consolidation may represent edema, atelectasis and/or pneumonia. Labs Labs: Laboratory Results - last 24 hr 11/24/24 11/24/24 11/25/24 15:56 21:19 04:53 WBC 23.5 H RBC 3.37 L Hgb 10.9 L Hct 32.8 L MCV 97.3 MCH 32.3 MCHC 33.2 RDW 13.4 Plt Count 182 MPV 9.5 Immature Gran % (Auto) Not Reportable Neut % (Auto) Not Reportable Lymph % (Auto) Not Reportable [place] % (Auto) Not Reportable Eos % (Auto) Not Reportable Baso % (Auto) Not Reportable Lymph # (Auto) Not Reportable [place] # (Auto) Not Reportable Eos # (Auto) Not Reportable Baso # (Auto) Not Reportable Abs Immat Gran (auto) Not Reportable Absolute Neuts (auto) Not Reportable Absolute Nucleated RBC Not Reportable Total Counted 100 Neutrophils % (Manual) 88 H Band Neutrophils % 4 Lymphocytes % (Manual) 5.0 L Monocytes % (Manual) 3 Nucleated RBC % Not Reportable Abs Neuts (Manual) 21.62 H Abs Lymphs (Manual) 1.17 Abs Monocytes (Manual) 0.70 Smudge Cells Present Platelet Estimate Adequate Hypochromasia 1+ Anisocytosis 1+ Schistocytes None seen PT 14.0 INR 1.1 APTT 28.8 Puncture Site Artline ABG pH 7.462 H ABG pCO2 37.1 ABG pO2 78.7 L ABG PO2/FiO2 Ratio 1.12 ABG HCO3 25.9 ABG O2 Saturation 96.3 ABG O2 Content 15.5 L ABG Base Excess 2.2 A-a Gradient 380.5 Oxyhemoglobin 95.2 Carboxyhemoglobin 0.1 Methemoglobin 0.3 Reduced Hemoglobin 4.4 Total Hemoglobin 11.5 L O2 Delivery Device Ventilator O2 Liters/Min Not Reportable Minute Volume Not Reportable Vent Rate 26 Vent Mode Cmv FiO2 70 Tidal Volume 450 PEEP 10 Peak Inspir Pressure Not Reportable Pressure Support Not Reportable Sodium 134 L Potassium 4.1 Chloride 105 Carbon Dioxide 25 Anion Gap 4 BUN 31 H Creatinine 0.94 Estim Creat Clear Calc 98 Estimated GFR > 60 Glucose 237 H POC Capillary Glucose 195 H 216 H Lactic Acid 1.2 Calcium 8.0 L Phosphorus 2.6 Magnesium 2.6 H Total Bilirubin 1.4 H AST 42 ALT 33 Alkaline Phosphatase 91 Total Protein 4.8 L Albumin 2.2 L 11/25/24 11/25/24 07:09 11:25 WBC RBC Hgb Hct MCV MCH MCHC RDW Plt Count MPV Immature Gran % (Auto) Neut % (Auto) Lymph % (Auto) [place] % (Auto) Eos % (Auto) Baso % (Auto) Lymph # (Auto) [place] # (Auto) Eos # (Auto) Baso # (Auto) Abs Immat Gran (auto) Absolute Neuts (auto) Absolute Nucleated RBC Total Counted Neutrophils % (Manual) Band Neutrophils % Lymphocytes % (Manual) Monocytes % (Manual) Nucleated RBC % Abs Neuts (Manual) Abs Lymphs (Manual) Abs Monocytes (Manual) Smudge Cells Platelet Estimate Hypochromasia Anisocytosis Schistocytes PT INR APTT Puncture Site ABG pH ABG pCO2 ABG pO2 ABG PO2/FiO2 Ratio ABG HCO3 ABG O2 Saturation ABG O2 Content ABG Base Excess A-a Gradient Oxyhemoglobin Carboxyhemoglobin Methemoglobin Reduced Hemoglobin Total Hemoglobin O2 Delivery Device O2 Liters/Min Minute Volume Vent Rate Vent Mode FiO2 Tidal Volume PEEP Peak Inspir Pressure Pressure Support Sodium Potassium Chloride Carbon Dioxide Anion Gap BUN Creatinine Estim Creat Clear Calc Estimated GFR Glucose POC Capillary Glucose 237 H 220 H Lactic Acid Calcium Phosphorus Magnesium Total Bilirubin AST ALT Alkaline Phosphatase Total Protein Albumin
[2024-11-25 14:28] LABS: Hematocrit 32.0 % (42.0-52.0); Hemoglobin 10.2 g/dL (14.0-18.0); Mean Corpuscular HGB Conc 31.9 g/dl (32-36); Mean Corpuscular Hemoglobin 31.7 pg (26-34); Mean Corpuscular Volume 99.4 fl (80-100); Platelet Count Result 179 k/mm3 (150-375); Red Blood Count 3.22 M/mm3 (4.6-6.20); White Blood Count 25.5 K/mm3 (4.5-10.0)
--- NOTE | 2024-11-25 14:40 | W.PM.PROC2 ---
Procedure Note - Detailed Date of Procedure 11/25/24 Pre-op Diagnosis Ruptured appendicitis Post-op Diagnosis Same (Ruptured appendicitis with abscess) Surgeon Rojelio Cortez MD Estimated Blood Loss -20 Urine Output 200
[2024-11-25 14:51] LABS: Alanine Aminotransferase 30 U/L (6-50); Albumin Level 2.3 g/dL (3.5-5.1); Alkaline Phosphatase 80 U/L (38-126); Anion Gap 4 mmol/L (4-12); Aspartate Amino Transferase 36 U/L (17-59); Bilirubin,Total 1.5 mg/dL (0.2-1.3); Blood Urea Nitrogen 34 mg/dL (9-20); Calcium 8.1 mg/dL (8.4-10.2); Carbon Dioxide 27 mmol/L (22-30); Chloride 109 mmol/L (98-107); Estimated CRCL calculation 89 ml/min; Estimated Glomerular Filt Rate > 60; Glucose 200 mg/dL (65-110); Magnesium 2.8 mg/dL (1.6-2.3); Potassium 3.9 mmol/L (3.4-5.0); Sodium 140 mmol/L (137-145); Total Protein 5.0 g/dL (6.3-8.2)
[2024-11-25 14:52] LABS: Partial Thromboplastin Time 27.8 Seconds (22.3-36.8); Triglycerides 316 mg/dL (<150)
[2024-11-25 14:59] LABS: Transferrin 87 mg/dL (206-381)
[2024-11-25 16:07] LABS: Anisocytosis 1+; Band Neutrophils Percent 9 % (0-6); Burr Cells 1+; Lymphocytes Absolute Manual 1.02 K/mm3 (1.1-4.5); Lymphocytes Percent Manual 4 % (18-44); Neutrophils Absolute Manual 24.48 K/mm3 (1.3-6.7); Neutrophils Percent Manual 87 % (46-73); Schistocytes None Seen; Total Cells Counted 100
[2024-11-25] MEDS: AMINO ACIDS 5%/DEXTROSE 15% 1,000 ML with MULTIVITAMINS-12 INJ VIAL 1 1.25 ML, MULTIVIT... 40 ML IV CONT (18:02)
[2024-11-25] MEDS: FAT EMULSIONS IV 20% 250 ML 20.83 ML IVPB (18:03)
[2024-11-25] MEDS: FENTANYL 2,500MCG/NS250ML(*CRX 2,500 MCG/250 ML BAG 7.5 MCG IV CONT (18:15)
[2024-11-26] VITALS (28 sets, daily range): BP systolic 101–142; BP diastolic 49–85; PULSE 65–112; RESP 13–90; TEMP 37.7–38.8; O2SAT 92–97
[2024-11-26] MEDS: CENTRAL LINE FLUSH 10 ML IV PUSH ×4 (00:09→22:41)
[2024-11-26] MEDS: PIPERACILLIN/TAZOBACTAM SOD 3.375 GM in SODIUM CHLORIDE 0.9% IV 50 ML 100 ML IVPB ×3 (00:17→11:56)
[2024-11-26] MEDS: INSULIN ASPART (*BKC) 100 UNITS/ML SUB-Q ×5 (01:15→16:12)
[2024-11-26] MEDS: IPRATROPIUM BR 0.02% INH SOLN 0.5 MG/2.5 ML VIAL INHALATION ×4 (02:21→20:01)
[2024-11-26 05:10] LABS: Hematocrit 29.1 % (42.0-52.0); Hemoglobin 9.5 g/dL (14.0-18.0); Immature Granulocyte Percent A 5.5 % (0-0.5); Lymphocytes Absolute Auto 1.03 K/mm3 (0.9-3.2); Mean Corpuscular HGB Conc 32.6 g/dl (32-36); Mean Corpuscular Hemoglobin 31.8 pg (26-34); Mean Corpuscular Volume 97.3 fl (80-100); Nucleated Red Blood Cells Absolute Auto 0.020 K/mm3 (0.0-0.012); Nucleated Red Blood Cells Perc 0.1 % (0.0-0.2); Platelet Count Result 177 k/mm3 (150-375); Red Blood Count 2.99 M/mm3 (4.6-6.20); White Blood Count 21.1 K/mm3 (4.5-10.0)
[2024-11-26 05:11] LABS: Alveolar/Arterial O2 Gradient 404.2 mmHg; Carboxyhemoglobin 0.3 % THb (0-2.0); Fractional Inspired Oxygen 75 %; HCO3 ABG 25.1 mEq/l (22.0-26.0); Methemoglobin ABG 0.3 %THb (0-1.5); Oxygen Content ABG 14.1 %vol (16.0-22.0); Oxygen Saturation ABG 97.5 % (95.0-100.0); PCO2 ABG 35.9 mmHg (35.0-45.0); PO2 ABG 92.4 mmHg (80.0-100.0); PO2 FiO2 Ratio Arterial Blood 1.23 %; Reduced Hemoglobin 2.9 %THb (0-5.0)
[2024-11-26 05:12] LABS: Modified Allen's Test Pass; Site Drawn ARTLINE
[2024-11-26 05:13] LABS: Arterial Blood Gas Tidal Volume 450 ml; Arterial Blood Gas Ventilator rate 22 /MIN
[2024-11-26 05:26] LABS: Alanine Aminotransferase 31 U/L (6-50); Albumin Level 2.4 g/dL (3.5-5.1); Alkaline Phosphatase 88 U/L (38-126); Anion Gap 4 mmol/L (4-12); Aspartate Amino Transferase 37 U/L (17-59); Bilirubin,Total 1.5 mg/dL (0.2-1.3); Blood Urea Nitrogen 34 mg/dL (9-20); Calcium 8.0 mg/dL (8.4-10.2); Carbon Dioxide 27 mmol/L (22-30); Chloride 108 mmol/L (98-107); Estimated CRCL calculation 93 ml/min; Estimated Glomerular Filt Rate > 60; Glucose 295 mg/dL (65-110); Magnesium 2.9 mg/dL (1.6-2.3); Potassium 3.9 mmol/L (3.4-5.0); Sodium 139 mmol/L (137-145); Total Protein 5.2 g/dL (6.3-8.2)
[2024-11-26] MEDS: HYDROCORTISONE SODIUM SUCCINATE 100 MG/2 ML VIAL IV PUSH (06:17)
[2024-11-26] MEDS: BUMETANIDE INJ 1 MG/4 ML VIAL IV PUSH (07:57)
[2024-11-26] MEDS: PANTOPRAZOLE SODIUM IV 40 MG VIAL IV PUSH (08:00)
[2024-11-26] MEDS: INSULIN GLARGINE (*BKC) 100 UNITS/ML 16 UNITS SUB-Q (08:01)
[2024-11-26] MEDS: MICAFUNGIN SODIUM 100 MG in SODIUM CHLORIDE 0.9% IV 100 ML IVPB (08:01)
[2024-11-26] MEDS: MINERAL OIL/WHITE PETROLATUM OINTMENT 1 APPLIC EACH EYE ×2 (08:01→21:09)
[2024-11-26] MEDS: ENOXAPARIN 40 MG/0.4 ML SYRINGE SUB-Q (08:02)
[2024-11-26] MEDS: SODIUM PHOSPHATE 20 MM in DEXTROSE 5% IN WATER 250 ML 50 MM IVPB (09:10)
[2024-11-26] MEDS: MIDAZOLAM 100MG/NS 100ML(*CRX) 100 MG/100 ML BAG IV CONT (09:28)
--- NOTE | 2024-11-26 09:35 | WPDINTPN ---
Progress Note: A&P Assessment and Plan (1) Acute hypoxic respiratory failure: Code(s): J96.01 - Acute respiratory failure with hypoxia Status: Acute Assessment and Plan: Acute respiratory failure likely related to SIRS/sepsis -11/22: CTA chest: No large central PE, small right pleural effusion, dependent atelectasis, ascites, free intraperitoneal air in the upper abdomen correlate for some recent surgery -patient was initially placed on 10 L nasal cannula, now on high-flow therapy 60 L flow rate and 77% FiO2 -patient significantly tachypneic, breathing 40+ times a minute, with O2 side of 90-92% -11/23: Intubated in the ICU -chest x-ray and ABGs reviewed this morning, ventilator adjusted, increased PEEP to 12 and FiO2 to 70%, wean FiO2 to maintain O2 sats greater than 92% -continue bronchodilators -sedated with fentanyl and Versed infusion, maintain RASS of -2 for now -discontinued IV fluids -will give a dose of Bumex (2) Septic shock: Code(s): A41.9 - Sepsis, unspecified organism; R65.21 - Severe sepsis with septic shock Status: Acute Assessment and Plan: Patient POD #3, tachypneic with hypoxic respiratory failure, lactic acidosis, increasing WBC count, anion gap metabolic acidosis -initial lactic acids were elevated on 11/24/2023 when patient was brought to the ICU, adequately fluid-resuscitated before patient was taken to the OR -likely related to SIRS/severe sepsis secondary to ruptured appendicitis -11/22: CT scan of the abdomen and pelvis this morning showed postop changes consider the since surgery likely appendectomy, no abscess identified. Small pleural effusion with dependent atelectasis -11/23: Repeat CT scan of the abdomen and pelvis without contrast showed increasing free intraperitoneal air suspicious for bowel leak. Increasing fluid in the mesentery with ascites involving the perihepatic space. No discrete abscess identified. Increasing consolidation of the lower lobes which may represent atelectasis or pneumonia. Developing small pleural effusions -discussed CT results with surgeon, - 11/23: Exploratory laparotomy with ileocolic resection for bowel perforation (cecal perforation) with spillage of bowel contents in the abdominal cavity -OFF ALL PRESSORS, maintain MAP > 65 mmHg or SBP> 100 mmHg -WEAN stress dose steroids -continue Zosyn (11/20) and micafungin (11/24) due to spillage of bowel contents secondary to bowel perforation in the abdominal cavity, and given that patient is febrile with a T-max of 101.3? -11/24: Blood cultures pending -11/24: Sputum cultures obtained and pending -11/24: Urine cultures pending -lactic acid has resolved (3) Metabolic acidosis: Code(s): E87.20 - Acidosis, unspecified Status: Acute Assessment and Plan: RESOLVED Patient developed metabolic acidosis likely related to lactic acidosis - will give additional IV fluids secondary to severe sepsis -continue urine output, renal function, electrolyte -lactic acid is normal -urine output has been adequate, Normal creatinine for now (4) Status post appendectomy: Onset Date: 11/20/24 Code(s): Z90.49 - Acquired absence of other specified parts of digestive tract Status: Acute Assessment and Plan: 11/20: Discussed with surgery, NG tube will be inserted due to abdominal distension 11/23: Exploratory laparotomy with ileocolic resection for bowel perforation (cecal perforation) with spillage of bowel contents in the abdominal cavity 11/24: Wound VAC placed Treatment plans as above -pain control with fentanyl infusion -11/25: started on TPN after discussing with surgery (5) Hyperglycemia: Code(s): R73.9 - Hyperglycemia, unspecified Status: Acute Assessment and Plan: Related to stress response and/or steroids -Accu-Cheks and sliding scale insulin -Lantus increased Plan DVT prophylaxis: Lovenox Stress ulcer prophylaxis: Protonix Nutrition: TPN Code Status: Full code Critical Care Time Spent: 33 minutes Discussed with patient's sister GABRIELA Charles, updated her with patient's condition plan of care. She had patient is only on 1 pressor to this morning, wound will put, acidosis has resolved, kidney functions and normal. I answered all her questions Due to a high probability of clinically significant, life threatening deterioration, the patient required my highest level of preparedness to intervene emergently and I personally spent this critical care time directly and personally managing the patient. This critical care time included obtaining a history; examining the patient; pulse oximetry; ordering and review of studies; arranging urgent treatment with development of a management plan; evaluation of patient's response to treatment; frequent reassessment; and discussions with other providers. It was exclusive of separately billable procedures and treating other patients and teaching time. Please see Assessment and Plan section and the rest of the note for further information on patient assessment and treatment This dictation may have been done utilizing a voice recognition system. Attempts have been made to correct errors. However, there may be uncorrected grammatical, spelling, and recognitions errors present. Subjective Date/time seen: 11/26/24 09:35 Interval history: Reason for consult: Acute hypoxic respiratory failure requiring intubation and mechanical ventilation, status post appendicectomy 11/22/2024, septic shock 11/23: Exploratory laparotomy with ileocolic resection for bowel perforation (cecal perforation) with spillage of bowel contents in the abdominal cavity 11/26/2024: Patient seen and examined the ICU, remains intubated on CMV mode of ventilation, peep of 12, 70% FiO2. Sedated with fentanyl and Versed infusion. Patient opens his eyes but does not follow commands. Off all pressors. Lactic acid is normal, adequate urine output. T-max 101.3 ? overnight. Hyperglycemia Review of Systems Review of Systems: ROS unobtainable: Yes unobtainable due to endotracheal tube, unobtainable due to medical condition and unobtainable due to mental status Exam Narrative: General: Intubated in singing in acute distress HEENT:? Pupils pinpoint and sluggish, sclera is clear Neck:? Supple Respiratory:? Coarse breath sounds bilaterally, decreased at bases, adequate air entry, no wheezing Cardiac:? S1-S2 is normal, normal sinus rhythm Abdomen:? Abdominal is soft, nondistended, midline incision with dressing in place, unable to hear any bowel sounds Extremities:? No edema, palpable pedal pulses, warm extremities Neuro:? Intubated, sedated, opens his eyes but does not follow simple commands Skin:? Warm and dry Psych:? Unable to assess at this time Objective Data Vital Signs Vital Signs: Vital Signs - 24 hr 11/25/24 10:11/25/24 10:11/25/24 10:00 Temperature 100.7 F H Pulse Rate 86 89 89 Respiratory Rate 26 H 26 H Blood Pressure 109/67 Pulse Oximetry 92 Oxygen Delivery Fraction of Inspired Oxygen 11/25/24 10:11/25/24 10:00 11/25/24 10:46 Temperature Pulse Rate 89 85 92 Respiratory Rate 26 H Blood Pressure 114/59 L 110/56 L Pulse Oximetry Oxygen Delivery Fraction of Inspired Oxygen 11/25/24 11:38 11/25/24 11:43 11/25/24 12:00 Temperature Pulse Rate 87 90 Respiratory Rate Blood Pressure 113/58 L Pulse Oximetry 91 93 Oxygen Delivery Mechanical Ventilation Mechanical Ventilation Fraction of Inspired Oxygen 70 75 11/25/24 12:00 11/25/24 12:00 11/25/24 12:00 Temperature 100.2 F H Pulse Rate 86 87 Respiratory Rate 22 H 22 H Blood Pressure 105/56 L Pulse Oximetry 93 Oxygen Delivery Fraction of Inspired Oxygen 75 11/25/24 12:00 11/25/24 12:00 11/25/24 12:00 Temperature Pulse Rate 88 89 86 Respiratory Rate 22 H Blood Pressure 109/56 L Pulse Oximetry Oxygen Delivery Fraction of Inspired Oxygen 11/25/24 12:43 11/25/24 12:50 11/25/24 14:00 Temperature Pulse Rate 92 87 83 Respiratory Rate 23 H Blood Pressure 110/83 106/57 L Pulse Oximetry Oxygen Delivery Fraction of Inspired Oxygen 11/25/24 14:00 11/25/24 14:00 11/25/24 14:00 Temperature Pulse Rate 80 83 81 Respiratory Rate 23 H Blood Pressure 103/55 L 103/53 L Pulse Oximetry Oxygen Delivery Fraction of Inspired Oxygen 11/25/24 14:00 11/25/24 14:00 11/25/24 15:21 Temperature 100 F H Pulse Rate 82 81 78 Respiratory Rate 23 H 18 Blood Pressure 103/53 L Pulse Oximetry 94 Oxygen Delivery Fraction of Inspired Oxygen 11/25/24 15:25 11/25/24 15:35 11/25/24 16:00 Temperature Pulse Rate 84 76 90 Respiratory Rate 22 H Blood Pressure 106/53 L Pulse Oximetry 94 Oxygen Delivery Mechanical Ventilation Fraction of Inspired Oxygen 75 11/25/24 16:00 11/25/24 16:00 11/25/24 16:00 Temperature Pulse Rate 90 90 90 Respiratory Rate 22 H 22 H Blood Pressure 106/53 L Pulse Oximetry Oxygen Delivery Fraction of Inspired Oxygen 11/25/24 16:00 11/25/24 16:00 11/25/24 16:00 Temperature 100.3 F H Pulse Rate 90 Respiratory Rate 22 H Blood Pressure 106/53 L Pulse Oximetry 93 93 Oxygen Delivery Mechanical Ventilation Fraction of Inspired Oxygen 75 75 11/25/24 16:00 11/25/24 17:44 11/25/24 18:00 Temperature Pulse Rate 90 91 88 Respiratory Rate Blood Pressure 102/54 L Pulse Oximetry 94 Oxygen Delivery Mechanical Ventilation Fraction of Inspired Oxygen 75 11/25/24 18:00 11/25/24 18:00 11/25/24 18:00 Temperature Pulse Rate 86 90 90 Respiratory Rate 27 H 27 H Blood Pressure 102/54 L Pulse Oximetry Oxygen Delivery Fraction of Inspired Oxygen 11/25/24 18:00 11/25/24 18:00 11/25/24 18:15 Temperature 100.5 F H Pulse Rate 86 86 87 Respiratory Rate 25 H 22 H Blood Pressure 102/54 L Pulse Oximetry 92 Oxygen Delivery Fraction of Inspired Oxygen 11/25/24 18:15 11/25/24 20:00 11/25/24 20:00 Temperature Pulse Rate 87 87 87 Respiratory Rate 22 H 24 H Blood Pressure 101/49 L Pulse Oximetry 92 Oxygen Delivery Mechanical Ventilation Fraction of Inspired Oxygen 75 11/25/24 20:00 11/25/24 20:00 11/25/24 20:00 Temperature 100.7 F H Pulse Rate 87 82 Respiratory Rate 22 H Blood Pressure 101/49 L Pulse Oximetry 93 Oxygen Delivery Fraction of Inspired Oxygen 75 11/25/24 20:00 11/25/24 20:00 11/25/24 20:00 Temperature Pulse Rate 82 82 82 Respiratory Rate 22 H 22 H Blood Pressure 101/49 L Pulse Oximetry Oxygen Delivery Fraction of Inspired Oxygen 11/25/24 20:46 11/25/24 20:46 11/25/24 20:50 Temperature Pulse Rate 93 95 82 Respiratory Rate 24 H 24 H Blood Pressure Pulse Oximetry 93 Oxygen Delivery Mechanical Ventilation Fraction of Inspired Oxygen 75 11/25/24 22:00 11/25/24 22:00 11/25/24 22:00 Temperature 100.8 F H Pulse Rate 90 90 88 Respiratory Rate 22 H 22 H Blood Pressure 102/48 L Pulse Oximetry 92 Oxygen Delivery Fraction of Inspired Oxygen 11/25/24 22:00 11/25/24 23:53 11/26/24 00:00 Temperature Pulse Rate 87 97 97 Respiratory Rate 22 H Blood Pressure 103/54 L Pulse Oximetry 93 Oxygen Delivery Mechanical Ventilation Fraction of Inspired Oxygen 75 11/26/24 00:00 11/26/24 00:00 11/26/24 00:00 Temperature Pulse Rate 97 97 Respiratory Rate 22 H Blood Pressure Pulse Oximetry 93 Oxygen Delivery Mechanical Ventilation Fraction of Inspired Oxygen 75 75 11/26/24 00:00 11/26/24 00:00 11/26/24 02:00 Temperature 100.9 F H Pulse Rate 97 95 85 Respiratory Rate 22 H 22 H Blood Pressure 103/52 L Pulse Oximetry 93 Oxygen Delivery Fraction of Inspired Oxygen 11/26/24 02:00 11/26/24 02:00 11/26/24 02:00 Temperature 101 F H Pulse Rate 85 85 85 Respiratory Rate 22 H 22 H 22 H Blood Pressure 112/57 L Pulse Oximetry 95 Oxygen Delivery Fraction of Inspired Oxygen 11/26/24 02:23 11/26/24 02:24 11/26/24 04:00 Temperature Pulse Rate 84 83 83 Respiratory Rate 26 H Blood Pressure 107/49 L Pulse Oximetry 93 Oxygen Delivery Mechanical Ventilation Fraction of Inspired Oxygen 75 11/26/24 04:00 11/26/24 04:00 11/26/24 04:00 Temperature Pulse Rate 90 90 Respiratory Rate 22 H Blood Pressure Pulse Oximetry 93 Oxygen Delivery Mechanical Ventilation Fraction of Inspired Oxygen 75 75 11/26/24 04:00 11/26/24 06:00 11/26/24 06:00 Temperature 101.3 F H 101.2 F H Pulse Rate 90 99 90 Respiratory Rate 90 H 22 H Blood Pressure 107/50 L 101/63 Pulse Oximetry 93 93 Oxygen Delivery Fraction of Inspired Oxygen 11/26/24 08:00 11/26/24 08:00 11/26/24 08:00 Temperature 101.8 F H Pulse Rate 100 Respiratory Rate 21 H Blood Pressure 118/57 L Pulse Oximetry 92 92 Oxygen Delivery Mechanical Ventilation Fraction of Inspired Oxygen 65 65 11/26/24 08:00 11/26/24 08:00 11/26/24 08:00 Temperature Pulse Rate 100 100 100 Respiratory Rate 21 H 21 H Blood Pressure 118/57 L Pulse Oximetry Oxygen Delivery Fraction of Inspired Oxygen 11/26/24 08:13 11/26/24 08:13 11/26/24 08:24 Temperature Pulse Rate 94 94 104 H Respiratory Rate 22 H 32 H Blood Pressure Pulse Oximetry 93 Oxygen Delivery Mechanical Ventilation Fraction of Inspired Oxygen 65 11/26/24 09:28 11/26/24 09:28 11/26/24 09:31 Temperature Pulse Rate 105 H 105 H 104 H Respiratory Rate 25 H 25 H Blood Pressure 124/59 L Pulse Oximetry Oxygen Delivery Fraction of Inspired Oxygen Intake/Output Intake/Output: Intake & Output 11/23/24 11/24/24 11/25/24 11/26/24 23:59 23:59 23:59 23:59 Intake Total 2342.8 3160.6 2905.3 251.8 Output Total 800 1700 1770 1120 Balance 1542.8 1460.6 1135.3 -868.2 Meds/Results Medications: Active Medications Generic Name Dose Route Start Last Admin Trade Name Freq PRN Reason Stop Dose Admin Dextrose 12.5 gm 11/24/24 08:03 Dextrose 50% 25 Gm/50 Ml Syringe IV PUSH PRN PRN Hypoglycemia Protocol Enoxaparin Sodium 40 mg 11/21/24 09:00 11/26/24 08:02 Enoxaparin 40 Mg/0.4 Ml Syringe SUB-Q 40 mg DAILY TAMICA Administration Glucagon 1 mg 11/24/24 08:03 Glucagon For Inj 1 Mg Vial IM PRN PRN Hypoglycemia Protocol Glucose 15 gm 11/24/24 08:03 Glucose Oral Gel 15 Gm Of Glucse In 37.5 Gm Tube PO PRN PRN Hypoglycemia Protocol Hydrocortisone Sodium Succinate 100 mg 11/24/24 10:55 11/26/24 06:17 Hydrocortisone Sodium Succinate 100 Mg/2 Ml Vial IV PUSH 100 mg Q8HR TAMICA Administration Piperacillin Sod/Tazobactam 50 mls @ 100 mls/hr 11/21/24 00:00 11/26/24 06:17 Sod 3.375 gm/ Sodium Chloride IVPB 100 mls/hr Q6H TAMICA Administration Fentanyl Citrate 2,500 mcg in 250 mls @ 7.5 mls/hr 11/23/24 14:05 11/26/24 08:00 Fentanyl 2,500 Mcg/Ns 250 Ml IV CONT 75 mcg/hr .[id number] TAMICA 7.5 mls/hr Titration Protocol 75 MCG/HR Midazolam HCl 100 mg in 100 mls @ 2 mls/hr 11/23/24 21:45 11/26/24 09:28 Versed 100 Mg/Ns 100 Ml IV CONT 3 mg/hr .Q50H TAMICA 3 mls/hr Administration Protocol 2 MG/HR Micafungin Sodium 100 mg/ 100 mls @ 100 mls/hr 11/24/24 09:00 11/26/24 09:01 Sodium Chloride IVPB Infused DAILY TAMICA Infusion Dextrose 1,000 mls @ 100 mls/hr 11/24/24 08:03 Dextrose 5% 1,000 Ml IVPB PRN PRN Hypoglycemia Protocol Multivitamins 1.25 ml/ 1,002.5 mls @ 40 mls/hr 11/25/24 15:00 11/25/24 18:02 Multivitamins 1.25 ml/ Amino IV CONT 40 mls/hr Acids/Dextrose .Q24H TAMICA Administration Protocol Dextrose 1,000 mls @ 50 mls/hr 11/25/24 14:02 Dextrose 10% IV CONT .Q20H PRN if PN is interrupted Fat Emulsion Intravenous 250 mls @ 20.833 mls/hr 11/25/24 15:00 11/25/24 18:03 Lipids 20% IVPB 20.83 mls/hr Q24H TAMICA Administration Sodium Phosphate 20 mm/ 256.6667 mls @ 50 mls/hr 11/26/24 09:00 11/26/24 09:10 Dextrose IVPB 11/26/24 14:07 50 mls/hr ONCE ONE Administration Insulin Aspart 3 - 6 units 11/24/24 09:00 11/26/24 08:01 Insulin Aspart (*Bkc) 100 Units/Ml SUB-Q 4 units Q4H TAMICA Administration Protocol Insulin Glargine 16 units 11/26/24 09:00 11/26/24 08:01 Insulin Glargine (*Bkc) 100 Units/Ml SUB-Q 16 units DAILY TAMICA Administration Ipratropium [place] 0.5 mg 11/23/24 14:00 11/26/24 08:13 Ipratropium Br 0.02% Inh Soln 0.5 Mg/2.5 Ml Vial INHALATION 0.5 mg Q6HRT TAMICA Administration Levalbuterol HCl 0.63 mg 11/23/24 14:00 11/26/24 08:12 Levalbuterol Neb 1.25 Mg/3 Ml INHALATION 0.63 mg Q6HRT TAMICA Administration Midazolam HCl 2 mg 11/23/24 21:45 Midazolam Hcl (*Crx) 2 Mg/2 Ml Vial IV PUSH Q5M PRN ventilator asynchrony Multi-Ingred Cream/Lotion/Oil/Oint 1 applic 11/23/24 21:00 11/26/24 08:01 Mineral Oil/White Petrolatum Ointment EACH EYE 1 applic Q12HR TAMICA Administration Pantoprazole Sodium 40 mg 11/24/24 09:00 11/26/24 08:00 Pantoprazole Sodium Iv 40 Mg Vial IV PUSH 40 mg QAM TAMICA Administration Sodium Chloride 10 ml 11/23/24 14:00 11/26/24 07:57 Central Line Flush IV PUSH 10 ml Q8HR TAMICA Administration Sodium Chloride 10 ml 11/23/24 13:39 Central Line Flush IV PUSH PRN PRN with TPN bag changes Sodium Chloride 20 ml 11/23/24 13:39 Central Line Flush IV PUSH PRN PRN after blood draws Radiology Results: ITS Impressions Chest CTA 11/23/24 05:53 IMPRESSION: 1. Free intraperitoneal air in the upper abdomen. Correlate for recent surgery. In the absence of known surgery this is most likely secondary to bowel perforation. Clinically correlate. 2: No large central pulmonary embolism. Limited evaluation of the secondary and tertiary pulmonary arteries. 3: Small right pleural effusion. Dependent atelectasis. 4: Ascites. Venous Doppler Study 11/23/24 09:56 Impression: No evidence of deep venous thrombosis Abdomen/Pelvis CT 11/23/24 13:00 IMPRESSION: 1. Increasing free intraperitoneal air 11/22/2024, suspicious for bowel leak. Increasing fluid in the mesentery with ascites involving the perihepatic space. No discrete abscess identified. Consider correlation with contrast-enhanced CT abdomen. 2: Increasing consolidation of the lower lobes which may represent atelectasis or pneumonia. 3: Developing small pleural effusions. Abdomen X-Ray 11/23/24 14:04 IMPRESSION: 1: NG tube tip in the stomach. 2: Bibasilar airspace disease, edema versus pneumonia. Chest X-Ray 11/26/24 06:27 IMPRESSION: Moderate right and small left-sided pleural effusion. Endotracheal tube in good position. Advancement of the orogastric tube approximately 4 to 6 cm is recommended for optimal radiographic placement. Labs Labs: Laboratory Results - last 24 hr 11/25/24 11/25/24 11/25/24 11:25 14:11 14:13 WBC 25.5 H RBC 3.22 L Hgb 10.2 L Hct 32.0 L MCV 99.4 MCH 31.7 MCHC 31.9 L RDW 13.5 Plt Count 179 MPV 9.7 Immature Gran % (Auto) Not Reportable Neut % (Auto) Not Reportable Lymph % (Auto) Not Reportable [place] % (Auto) Not Reportable Eos % (Auto) Not Reportable Baso % (Auto) Not Reportable Lymph # (Auto) Not Reportable [place] # (Auto) Not Reportable Eos # (Auto) Not Reportable Baso # (Auto) Not Reportable Abs Immat Gran (auto) Not Reportable Absolute Neuts (auto) Not Reportable Absolute Nucleated RBC Not Reportable Total Counted 100 Neutrophils % (Manual) 87 H Band Neutrophils % 9 H Lymphocytes % (Manual) 4 L Nucleated RBC % Not Reportable Abs Neuts (Manual) 24.48 H Abs Lymphs (Manual) 1.02 L Platelet Estimate Adequate Anisocytosis 1+ [place] Cells 1+ Schistocytes None seen APTT 27.8 Puncture Site ABG pH ABG pCO2 ABG pO2 ABG PO2/FiO2 Ratio ABG HCO3 ABG O2 Saturation ABG O2 Content ABG Base Excess A-a Gradient Oxyhemoglobin Carboxyhemoglobin Methemoglobin Reduced Hemoglobin Total Hemoglobin O2 Delivery Device O2 Liters/Min Minute Volume Vent Rate Vent Mode FiO2 Tidal Volume PEEP Peak Inspir Pressure Pressure Support Sodium 140 Potassium 3.9 Chloride 109 H Carbon Dioxide 27 Anion Gap 4 BUN 34 H Creatinine 1.04 Estim Creat Clear Calc 89 Estimated GFR > 60 Glucose 200 H POC Capillary Glucose 220 H Lactic Acid Calcium 8.1 L Phosphorus Magnesium 2.8 H Transferrin 87 L Total Bilirubin 1.5 H AST 36 ALT 30 Alkaline Phosphatase 80 Total Protein 5.0 L Albumin 2.3 L Triglycerides 316 H 11/25/24 11/25/24 11/26/24 16:11 21:11 04:59 WBC 21.1 H RBC 2.99 L Hgb 9.5 L Hct 29.1 L MCV 97.3 MCH 31.8 MCHC 32.6 RDW 13.8 Plt Count 177 MPV 10.0 Immature Gran % (Auto) 5.5 H Neut % (Auto) 85.4 H Lymph % (Auto) 4.9 L [place] % (Auto) 3.7 Eos % (Auto) 0.0 Baso % (Auto) 0.5 Lymph # (Auto) 1.03 [place] # (Auto) 0.8 H Eos # (Auto) 0.0 Baso # (Auto) 0.1 Abs Immat Gran (auto) 1.16 H Absolute Neuts (auto) 18.0 H Absolute Nucleated RBC 0.020 H Total Counted Neutrophils % (Manual) Band Neutrophils % Lymphocytes % (Manual) Nucleated RBC % 0.1 Abs Neuts (Manual) Abs Lymphs (Manual) Platelet Estimate Anisocytosis [place] Cells Schistocytes APTT Puncture Site Artline ABG pH 7.463 H ABG pCO2 35.9 ABG pO2 92.4 ABG PO2/FiO2 Ratio 1.23 ABG HCO3 25.1 ABG O2 Saturation 97.5 ABG O2 Content 14.1 L ABG Base Excess 1.5 A-a Gradient 404.2 Oxyhemoglobin 96.5 Carboxyhemoglobin 0.3 Methemoglobin 0.3 Reduced Hemoglobin 2.9 Total Hemoglobin 10.3 L O2 Delivery Device Ventilator O2 Liters/Min Not Reportable Minute Volume Not Reportable Vent Rate 22 Vent Mode Cmv FiO2 75 Tidal Volume 450 PEEP 12 Peak Inspir Pressure Not Reportable Pressure Support Not Reportable Sodium 139 Potassium 3.9 Chloride 108 H Carbon Dioxide 27 Anion Gap 4 BUN 34 H Creatinine 1.00 Estim Creat Clear Calc 93 Estimated GFR > 60 Glucose 295 H POC Capillary Glucose 200 H 246 H Lactic Acid 1.1 Calcium 8.0 L Phosphorus 2.4 L Magnesium 2.9 H Transferrin Total Bilirubin 1.5 H AST 37 ALT 31 Alkaline Phosphatase 88 Total Protein 5.2 L Albumin 2.4 L Triglycerides 11/26/24 07:47 WBC RBC Hgb Hct MCV MCH MCHC RDW Plt Count MPV Immature Gran % (Auto) Neut % (Auto) Lymph % (Auto) [place] % (Auto) Eos % (Auto) Baso % (Auto) Lymph # (Auto) [place] # (Auto) Eos # (Auto) Baso # (Auto) Abs Immat Gran (auto) Absolute Neuts (auto) Absolute Nucleated RBC Total Counted Neutrophils % (Manual) Band Neutrophils % Lymphocytes % (Manual) Nucleated RBC % Abs Neuts (Manual) Abs Lymphs (Manual) Platelet Estimate Anisocytosis [place] Cells Schistocytes APTT Puncture Site ABG pH ABG pCO2 ABG pO2 ABG PO2/FiO2 Ratio ABG HCO3 ABG O2 Saturation ABG O2 Content ABG Base Excess A-a Gradient Oxyhemoglobin Carboxyhemoglobin Methemoglobin Reduced Hemoglobin Total Hemoglobin O2 Delivery Device O2 Liters/Min Minute Volume Vent Rate Vent Mode FiO2 Tidal Volume PEEP Peak Inspir Pressure Pressure Support Sodium Potassium Chloride Carbon Dioxide Anion Gap BUN Creatinine Estim Creat Clear Calc Estimated GFR Glucose POC Capillary Glucose 296 H Lactic Acid Calcium Phosphorus Magnesium Transferrin Total Bilirubin AST ALT Alkaline Phosphatase Total Protein Albumin Triglycerides Quality VTE Prophylaxis VTE prophylaxis: pharmacologic ordered (Lovenox 40 mg subQ daily)
--- NOTE | 2024-11-26 12:19 | P.PNGS_ITS ---
Progress Note: A&P Assessment and Plan (1) Perforated abdominal viscus: Code(s): R19.8 - Other specified symptoms and signs involving the digestive system and abdomen Status: Acute Assessment and Plan: * Patient remains intubated and sedated, remains febrile as well. * Vasopressors have been weaned off and white blood count is slightly improved today. * Continue IV Zosyn and micafungin, await further workup for fevers * Continue TPN until showing further signs of return of bowel function * Wound VAC in place and will be changed on Thursday (2) Septic shock: Code(s): A41.9 - Sepsis, unspecified organism; R65.21 - Severe sepsis with septic shock Status: Acute (3) Acute hypoxic respiratory failure: Code(s): J96.01 - Acute respiratory failure with hypoxia Status: Acute Assessment and Plan: * Wean and extubate per [facility] (4) Appendicitis: Qualifiers: Acute appendicitis type: with generalized peritonitis Appendicitis abscess presence: without abscess Appendicitis gangrene presence: with gangrene Appendicitis perforation presence: with perforation Appendicitis type: acute appendicitis Qualified Code(s): K35.201 - Acute appendicitis with generalized peritonitis, with perforation, without abscess Code(s): K37 - Unspecified appendicitis Status: Acute Subjective Subjective Date/Time Seen: 11/26/24 12:19 Interval history: Patient remains intubated and sedated. Off vasopressors. He has essentially remained febrile since 11/23/2024. Venous ultrasounds ordered for today. White blood count slightly improved from yesterday. Exam Const: Other: Remains intubated and sedated GI: Inspection: non-distended and incision (Wound VAC in place, no surrounding redness) GI Palp: Yes Soft to palpation and No Tenderness to palpation present (GI) Auscultation: Hypoactive bowel sounds present Objective Data Vital Signs Vital Signs: Vital Signs - 24 hr 11/25/24 12:43 11/25/24 12:50 11/25/24 14:00 Temperature Pulse Rate 92 87 83 Respiratory Rate 23 H Blood Pressure 110/83 106/57 L Pulse Oximetry Oxygen Delivery Fraction of Inspired Oxygen 11/25/24 14:00 11/25/24 14:00 11/25/24 14:00 Temperature Pulse Rate 80 83 81 Respiratory Rate 23 H Blood Pressure 103/55 L 103/53 L Pulse Oximetry Oxygen Delivery Fraction of Inspired Oxygen 11/25/24 14:00 11/25/24 14:00 11/25/24 15:21 Temperature 100 F H Pulse Rate 82 81 78 Respiratory Rate 23 H 18 Blood Pressure 103/53 L Pulse Oximetry 94 Oxygen Delivery Fraction of Inspired Oxygen 11/25/24 15:25 11/25/24 15:35 11/25/24 16:00 Temperature Pulse Rate 84 76 90 Respiratory Rate 22 H Blood Pressure 106/53 L Pulse Oximetry 94 Oxygen Delivery Mechanical Ventilation Fraction of Inspired Oxygen 75 11/25/24 16:00 11/25/24 16:00 11/25/24 16:00 Temperature Pulse Rate 90 90 90 Respiratory Rate 22 H 22 H Blood Pressure 106/53 L Pulse Oximetry Oxygen Delivery Fraction of Inspired Oxygen 11/25/24 16:00 11/25/24 16:00 11/25/24 16:00 Temperature 100.3 F H Pulse Rate 90 Respiratory Rate 22 H Blood Pressure 106/53 L Pulse Oximetry 93 93 Oxygen Delivery Mechanical Ventilation Fraction of Inspired Oxygen 75 75 11/25/24 16:00 11/25/24 17:44 11/25/24 18:00 Temperature Pulse Rate 90 91 88 Respiratory Rate Blood Pressure 102/54 L Pulse Oximetry 94 Oxygen Delivery Mechanical Ventilation Fraction of Inspired Oxygen 75 11/25/24 18:00 11/25/24 18:00 11/25/24 18:00 Temperature Pulse Rate 86 90 90 Respiratory Rate 27 H 27 H Blood Pressure 102/54 L Pulse Oximetry Oxygen Delivery Fraction of Inspired Oxygen 11/25/24 18:00 11/25/24 18:00 11/25/24 18:15 Temperature 100.5 F H Pulse Rate 86 86 87 Respiratory Rate 25 H 22 H Blood Pressure 102/54 L Pulse Oximetry 92 Oxygen Delivery Fraction of Inspired Oxygen 11/25/24 18:15 11/25/24 20:00 11/25/24 20:00 Temperature Pulse Rate 87 87 87 Respiratory Rate 22 H 24 H Blood Pressure 101/49 L Pulse Oximetry 92 Oxygen Delivery Mechanical Ventilation Fraction of Inspired Oxygen 75 11/25/24 20:00 11/25/24 20:00 11/25/24 20:00 Temperature 100.7 F H Pulse Rate 87 82 Respiratory Rate 22 H Blood Pressure 101/49 L Pulse Oximetry 93 Oxygen Delivery Fraction of Inspired Oxygen 75 11/25/24 20:00 11/25/24 20:00 11/25/24 20:00 Temperature Pulse Rate 82 82 82 Respiratory Rate 22 H 22 H Blood Pressure 101/49 L Pulse Oximetry Oxygen Delivery Fraction of Inspired Oxygen 11/25/24 20:46 11/25/24 20:46 11/25/24 20:50 Temperature Pulse Rate 93 95 82 Respiratory Rate 24 H 24 H Blood Pressure Pulse Oximetry 93 Oxygen Delivery Mechanical Ventilation Fraction of Inspired Oxygen 75 11/25/24 22:00 11/25/24 22:00 11/25/24 22:00 Temperature 100.8 F H Pulse Rate 90 90 88 Respiratory Rate 22 H 22 H Blood Pressure 102/48 L Pulse Oximetry 92 Oxygen Delivery Fraction of Inspired Oxygen 11/25/24 22:00 11/25/24 23:53 11/26/24 00:00 Temperature Pulse Rate 87 97 97 Respiratory Rate 22 H Blood Pressure 103/54 L Pulse Oximetry 93 Oxygen Delivery Mechanical Ventilation Fraction of Inspired Oxygen 75 11/26/24 00:00 11/26/24 00:00 11/26/24 00:00 Temperature Pulse Rate 97 97 Respiratory Rate 22 H Blood Pressure Pulse Oximetry 93 Oxygen Delivery Mechanical Ventilation Fraction of Inspired Oxygen 75 75 11/26/24 00:00 11/26/24 00:00 11/26/24 02:00 Temperature 100.9 F H Pulse Rate 97 95 85 Respiratory Rate 22 H 22 H Blood Pressure 103/52 L Pulse Oximetry 93 Oxygen Delivery Fraction of Inspired Oxygen 11/26/24 02:00 11/26/24 02:00 11/26/24 02:00 Temperature 101 F H Pulse Rate 85 85 85 Respiratory Rate 22 H 22 H 22 H Blood Pressure 112/57 L Pulse Oximetry 95 Oxygen Delivery Fraction of Inspired Oxygen 11/26/24 02:23 11/26/24 02:24 11/26/24 04:00 Temperature Pulse Rate 84 83 83 Respiratory Rate 26 H Blood Pressure 107/49 L Pulse Oximetry 93 Oxygen Delivery Mechanical Ventilation Fraction of Inspired Oxygen 75 11/26/24 04:00 11/26/24 04:00 11/26/24 04:00 Temperature Pulse Rate 90 90 Respiratory Rate 22 H Blood Pressure Pulse Oximetry 93 Oxygen Delivery Mechanical Ventilation Fraction of Inspired Oxygen 75 75 11/26/24 04:00 11/26/24 06:00 11/26/24 06:00 Temperature 101.3 F H 101.2 F H Pulse Rate 90 99 90 Respiratory Rate 90 H 22 H Blood Pressure 107/50 L 101/63 Pulse Oximetry 93 93 Oxygen Delivery Fraction of Inspired Oxygen 11/26/24 08:00 11/26/24 08:00 11/26/24 08:00 Temperature 101.8 F H Pulse Rate 100 Respiratory Rate 21 H Blood Pressure 118/57 L Pulse Oximetry 92 92 Oxygen Delivery Mechanical Ventilation Fraction of Inspired Oxygen 65 65 11/26/24 08:00 11/26/24 08:00 11/26/24 08:00 Temperature Pulse Rate 100 100 100 Respiratory Rate 21 H 21 H Blood Pressure 118/57 L Pulse Oximetry Oxygen Delivery Fraction of Inspired Oxygen 11/26/24 08:00 11/26/24 08:13 11/26/24 08:13 Temperature Pulse Rate 97 94 94 Respiratory Rate 22 H Blood Pressure Pulse Oximetry 93 Oxygen Delivery Mechanical Ventilation Fraction of Inspired Oxygen 65 11/26/24 08:24 11/26/24 09:28 11/26/24 09:28 Temperature Pulse Rate 104 H 105 H 105 H Respiratory Rate 32 H 25 H 25 H Blood Pressure Pulse Oximetry Oxygen Delivery Fraction of Inspired Oxygen 11/26/24 09:31 11/26/24 10:00 11/26/24 10:00 Temperature 101.9 F H Pulse Rate 104 H 112 H 112 H Respiratory Rate 25 H Blood Pressure 124/59 L 140/66 Pulse Oximetry 92 Oxygen Delivery Fraction of Inspired Oxygen 11/26/24 10:00 11/26/24 10:00 11/26/24 11:00 Temperature Pulse Rate 98 112 H 103 H Respiratory Rate 25 H 25 H Blood Pressure Pulse Oximetry 93 Oxygen Delivery Mechanical Ventilation Fraction of Inspired Oxygen 65 Intake/Output Intake/Output: Intake & Output 11/23/24 11/24/24 11/25/24 11/26/24 23:59 23:59 23:59 23:59 Intake Total 2342.8 3160.6 2905.3 318.4 Output Total 800 1700 1770 1120 Balance 1542.8 1460.6 1135.3 -801.6 Meds/Results Medications: Active Medications Generic Name Dose Route Start Last Admin Trade Name Freq PRN Reason Stop Dose Admin Dextrose 12.5 gm 11/24/24 08:03 Dextrose 50% 25 Gm/50 Ml Syringe IV PUSH PRN PRN Hypoglycemia Protocol Enoxaparin Sodium 40 mg 11/21/24 09:00 11/26/24 08:02 Enoxaparin 40 Mg/0.4 Ml Syringe SUB-Q 40 mg DAILY TAMICA Administration Glucagon 1 mg 11/24/24 08:03 Glucagon For Inj 1 Mg Vial IM PRN PRN Hypoglycemia Protocol Glucose 15 gm 11/24/24 08:03 Glucose Oral Gel 15 Gm Of Glucse In 37.5 Gm Tube PO PRN PRN Hypoglycemia Protocol Hydrocortisone Sodium Succinate 50 mg 11/26/24 18:00 Hydrocortisone Sodium Succinate 100 Mg/2 Ml Vial IV PUSH 11/28/24 06:01 Q12H TAMICA Piperacillin Sod/Tazobactam 50 mls @ 100 mls/hr 11/21/24 00:00 11/26/24 11:56 Sod 3.375 gm/ Sodium Chloride IVPB 100 mls/hr Q6H TAMICA Administration Fentanyl Citrate 2,500 mcg in 250 mls @ 10 mls/hr 11/23/24 14:05 11/26/24 10:00 Fentanyl 2,500 Mcg/Ns 250 Ml IV CONT 100 mcg/hr .Q25H TAMICA 10 mls/hr Titration Protocol 100 MCG/HR Midazolam HCl 100 mg in 100 mls @ 3 mls/hr 11/23/24 21:45 11/26/24 10:00 Versed 100 Mg/Ns 100 Ml IV CONT 3 mg/hr .[id number] TAMICA 3 mls/hr Titration Protocol 3 MG/HR Micafungin Sodium 100 mg/ 100 mls @ 100 mls/hr 11/24/24 09:00 11/26/24 09:01 Sodium Chloride IVPB Infused DAILY TAMICA Infusion Dextrose 1,000 mls @ 100 mls/hr 11/24/24 08:03 Dextrose 5% 1,000 Ml IVPB PRN PRN Hypoglycemia Protocol Multivitamins 1.25 ml/ 1,002.5 mls @ 40 mls/hr 11/25/24 15:00 11/25/24 18:02 Multivitamins 1.25 ml/ Amino IV CONT 40 mls/hr Acids/Dextrose .Q24H TAMICA Administration Protocol Dextrose 1,000 mls @ 50 mls/hr 11/25/24 14:02 Dextrose 10% IV CONT .Q20H PRN if PN is interrupted Fat Emulsion Intravenous 250 mls @ 20.833 mls/hr 11/25/24 15:00 11/25/24 18:03 Lipids 20% IVPB 20.83 mls/hr Q24H TAMICA Administration Sodium Phosphate 20 mm/ 256.6667 mls @ 50 mls/hr 11/26/24 09:00 11/26/24 09:10 Dextrose IVPB 11/26/24 14:07 50 mls/hr ONCE ONE Administration Insulin Aspart 3 - 6 units 11/24/24 09:00 11/26/24 08:01 Insulin Aspart (*Bkc) 100 Units/Ml SUB-Q 4 units Q4H TAMICA Administration Protocol Insulin Glargine 16 units 11/26/24 09:00 11/26/24 08:01 Insulin Glargine (*Bkc) 100 Units/Ml SUB-Q 16 units DAILY TAMICA Administration Ipratropium [place] 0.5 mg 11/23/24 14:00 11/26/24 08:13 Ipratropium Br 0.02% Inh Soln 0.5 Mg/2.5 Ml Vial INHALATION 0.5 mg Q6HRT TAMICA Administration Levalbuterol HCl 0.63 mg 11/23/24 14:00 11/26/24 08:12 Levalbuterol Neb 1.25 Mg/3 Ml INHALATION 0.63 mg Q6HRT TAMICA Administration Midazolam HCl 2 mg 11/23/24 21:45 Midazolam Hcl (*Crx) 2 Mg/2 Ml Vial IV PUSH Q5M PRN ventilator asynchrony Multi-Ingred Cream/Lotion/Oil/Oint 1 applic 11/23/24 21:00 11/26/24 08:01 Mineral Oil/White Petrolatum Ointment EACH EYE 1 applic Q12HR TAMICA Administration Pantoprazole Sodium 40 mg 11/24/24 09:00 11/26/24 08:00 Pantoprazole Sodium Iv 40 Mg Vial IV PUSH 40 mg QAM TAMICA Administration Sodium Chloride 10 ml 11/23/24 14:00 11/26/24 07:57 Central Line Flush IV PUSH 10 ml Q8HR TAMICA Administration Sodium Chloride 10 ml 11/23/24 13:39 Central Line Flush IV PUSH PRN PRN with TPN bag changes Sodium Chloride 20 ml 11/23/24 13:39 Central Line Flush IV PUSH PRN PRN after blood draws Radiology Results: ITS Impressions Chest CTA 11/23/24 05:53 IMPRESSION: 1. Free intraperitoneal air in the upper abdomen. Correlate for recent surgery. In the absence of known surgery this is most likely secondary to bowel perforation. Clinically correlate. 2: No large central pulmonary embolism. Limited evaluation of the secondary and tertiary pulmonary arteries. 3: Small right pleural effusion. Dependent atelectasis. 4: Ascites. Venous Doppler Study 11/23/24 09:56 Impression: No evidence of deep venous thrombosis Abdomen/Pelvis CT 11/23/24 13:00 IMPRESSION: 1. Increasing free intraperitoneal air 11/22/2024, suspicious for bowel leak. Increasing fluid in the mesentery with ascites involving the perihepatic space. No discrete abscess identified. Consider correlation with contrast-enhanced CT abdomen. 2: Increasing consolidation of the lower lobes which may represent atelectasis or pneumonia. 3: Developing small pleural effusions. Abdomen X-Ray 11/23/24 14:04 IMPRESSION: 1: NG tube tip in the stomach. 2: Bibasilar airspace disease, edema versus pneumonia. Chest X-Ray 11/26/24 06:27 IMPRESSION: Moderate right and small left-sided pleural effusion. Endotracheal tube in good position. Advancement of the orogastric tube approximately 4 to 6 cm is recommended for optimal radiographic placement. Labs Labs: Laboratory Results - last 24 hr 11/25/24 11/25/24 11/25/24 11:25 14:11 14:13 WBC 25.5 H RBC 3.22 L Hgb 10.2 L Hct 32.0 L MCV 99.4 MCH 31.7 MCHC 31.9 L RDW 13.5 Plt Count 179 MPV 9.7 Immature Gran % (Auto) Not Reportable Neut % (Auto) Not Reportable Lymph % (Auto) Not Reportable Davidson % (Auto) Not Reportable Eos % (Auto) Not Reportable Baso % (Auto) Not Reportable Lymph # (Auto) Not Reportable Davidson # (Auto) Not Reportable Eos # (Auto) Not Reportable Baso # (Auto) Not Reportable Abs Immat Gran (auto) Not Reportable Absolute Neuts (auto) Not Reportable Absolute Nucleated RBC Not Reportable Total Counted 100 Neutrophils % (Manual) 87 H Band Neutrophils % 9 H Lymphocytes % (Manual) 4 L Nucleated RBC % Not Reportable Abs Neuts (Manual) 24.48 H Abs Lymphs (Manual) 1.02 L Platelet Estimate Adequate Anisocytosis 1+ Antelope Cells 1+ Schistocytes None seen APTT 27.8 Puncture Site ABG pH ABG pCO2 ABG pO2 ABG PO2/FiO2 Ratio ABG HCO3 ABG O2 Saturation ABG O2 Content ABG Base Excess A-a Gradient Oxyhemoglobin Carboxyhemoglobin Methemoglobin Reduced Hemoglobin Total Hemoglobin O2 Delivery Device O2 Liters/Min Minute Volume Vent Rate Vent Mode FiO2 Tidal Volume PEEP Peak Inspir Pressure Pressure Support Sodium 140 Potassium 3.9 Chloride 109 H Carbon Dioxide 27 Anion Gap 4 BUN 34 H Creatinine 1.04 Estim Creat Clear Calc 89 Estimated GFR > 60 Glucose 200 H POC Capillary Glucose 220 H Lactic Acid Calcium 8.1 L Phosphorus Magnesium 2.8 H Transferrin 87 L Total Bilirubin 1.5 H AST 36 ALT 30 Alkaline Phosphatase 80 Total Protein 5.0 L Albumin 2.3 L Triglycerides 316 H 11/25/24 11/25/24 11/26/24 16:11 21:11 04:59 WBC 21.1 H RBC 2.99 L Hgb 9.5 L Hct 29.1 L MCV 97.3 MCH 31.8 MCHC 32.6 RDW 13.8 Plt Count 177 MPV 10.0 Immature Gran % (Auto) 5.5 H Neut % (Auto) 85.4 H Lymph % (Auto) 4.9 L Davidson % (Auto) 3.7 Eos % (Auto) 0.0 Baso % (Auto) 0.5 Lymph # (Auto) 1.03 Davidson # (Auto) 0.8 H Eos # (Auto) 0.0 Baso # (Auto) 0.1 Abs Immat Gran (auto) 1.16 H Absolute Neuts (auto) 18.0 H Absolute Nucleated RBC 0.020 H Total Counted Neutrophils % (Manual) Band Neutrophils % Lymphocytes % (Manual) Nucleated RBC % 0.1 Abs Neuts (Manual) Abs Lymphs (Manual) Platelet Estimate Anisocytosis Kristopher Cells Schistocytes APTT Puncture Site Artline ABG pH 7.463 H ABG pCO2 35.9 ABG pO2 92.4 ABG PO2/FiO2 Ratio 1.23 ABG HCO3 25.1 ABG O2 Saturation 97.5 ABG O2 Content 14.1 L ABG Base Excess 1.5 A-a Gradient 404.2 Oxyhemoglobin 96.5 Carboxyhemoglobin 0.3 Methemoglobin 0.3 Reduced Hemoglobin 2.9 Total Hemoglobin 10.3 L O2 Delivery Device Ventilator O2 Liters/Min Not Reportable Minute Volume Not Reportable Vent Rate 22 Vent Mode Cmv FiO2 75 Tidal Volume 450 PEEP 12 Peak Inspir Pressure Not Reportable Pressure Support Not Reportable Sodium 139 Potassium 3.9 Chloride 108 H Carbon Dioxide 27 Anion Gap 4 BUN 34 H Creatinine 1.00 Estim Creat Clear Calc 93 Estimated GFR > 60 Glucose 295 H POC Capillary Glucose 200 H 246 H Lactic Acid 1.1 Calcium 8.0 L Phosphorus 2.4 L Magnesium 2.9 H Transferrin Total Bilirubin 1.5 H AST 37 ALT 31 Alkaline Phosphatase 88 Total Protein 5.2 L Albumin 2.4 L Triglycerides 11/26/24 07:47 WBC RBC Hgb Hct MCV MCH MCHC RDW Plt Count MPV Immature Gran % (Auto) Neut % (Auto) Lymph % (Auto) Davidson % (Auto) Eos % (Auto) Baso % (Auto) Lymph # (Auto) Davidson # (Auto) Eos # (Auto) Baso # (Auto) Abs Immat Gran (auto) Absolute Neuts (auto) Absolute Nucleated RBC Total Counted Neutrophils % (Manual) Band Neutrophils % Lymphocytes % (Manual) Nucleated RBC % Abs Neuts (Manual) Abs Lymphs (Manual) Platelet Estimate Anisocytosis Kristopher Cells Schistocytes APTT Puncture Site ABG pH ABG pCO2 ABG pO2 ABG PO2/FiO2 Ratio ABG HCO3 ABG O2 Saturation ABG O2 Content ABG Base Excess A-a Gradient Oxyhemoglobin Carboxyhemoglobin Methemoglobin Reduced Hemoglobin Total Hemoglobin O2 Delivery Device O2 Liters/Min Minute Volume Vent Rate Vent Mode FiO2 Tidal Volume PEEP Peak Inspir Pressure Pressure Support Sodium Potassium Chloride Carbon Dioxide Anion Gap BUN Creatinine Estim Creat Clear Calc Estimated GFR Glucose POC Capillary Glucose 296 H Lactic Acid Calcium Phosphorus Magnesium Transferrin Total Bilirubin AST ALT Alkaline Phosphatase Total Protein Albumin Triglycerides
[2024-11-26] MEDS: VANCOMYCIN 1,250 MG/NS 250 ML 1,250 MG/250 ML BAG 166.67 MG IVPB ×2 (15:18→17:24)
[2024-11-26 15:37] LABS: Triglycerides 359 mg/dL (<150)
[2024-11-26] MEDS: MEROPENEM 1 GM in SODIUM CHLORIDE 0.9% IV 100 ML 200 ML IVPB ×2 (15:54→22:38)
[2024-11-26] MEDS: FAT EMULSIONS IV 20% 250 ML 20.83 ML IVPB (15:57)
[2024-11-26] MEDS: AMINO ACIDS 5%/DEXTROSE 15% 1,000 ML with MULTIVITAMINS-12 INJ VIAL 1 1.25 ML, MULTIVIT... 40 ML IV CONT (16:12)
[2024-11-26] MEDS: HYDROCORTISONE SODIUM SUCCINATE 100 MG/2 ML VIAL 50 MG IV PUSH (17:24)
--- NOTE | 2024-11-26 18:53 | PM.IMPN ---
Progress Note: A&P Assessment and Plan (1) Acute hypoxic respiratory failure: Code(s): J96.01 - Acute respiratory failure with hypoxia Status: Acute (2) Status post appendectomy: Onset Date: 11/20/24 Code(s): Z90.49 - Acquired absence of other specified parts of digestive tract Status: Acute (3) Tachycardia: Code(s): R00.0 - Tachycardia, unspecified Status: Acute (4) Low serum bicarbonate: Code(s): R79.89 - Other specified abnormal findings of blood chemistry Status: Acute (5) Hepatic steatosis: Code(s): K76.0 - Fatty (change of) liver, not elsewhere classified Status: Acute (6) Closed right fibular fracture: Qualifiers: Encounter type: subsequent encounter Code(s): S82.401A - Unspecified fracture of shaft of right fibula, initial encounter for closed fracture Status: Acute Plan patient was taken to OR and had emergent exploratory laparotomy, ileocolic resection, patient was transferred to IMU, when I saw the patient he was complaining of severe abdominal pain, I repeat CT scan of the abdomen without contrast and discuss the case with the Bicycle Service Technician Dr. Lugo, who examined the patient and transferred to patient to ICU for close observation and management. appreciate assistance of the main line station engineer and patient was intubated and remain on ventilator, patient has developed septic shock, febrile, blood culture no growth so far, he being weaned off Vasopressors, patient is being treated with Zosyn, and micafungin, patient is seen by main line station engineer, surgery service will monitor and follow. Subjective Date/time seen: 11/26/24 18:53 Interval history: H&P-Narrative Patient is a developed acute hypoxic respiratory failure of uncertain etiology. The patient did at have significant drop in his white count from previous and is now leukopenic instead of having leukocytosis. He remains afebrile. He has been on routine DVT prophylaxis postop with Lovenox. Noticed definite group rooms coordinator possible pulmonary embolism. Patient went for stat CT of the chest which was negative for any large vessel PE but more peripheral exam was limited due to contrast timing and motion artifact. The patient is still having right-sided chest pain and has had rapid increase in oxygen requirement up to 10 L nasal cannula. Patient still remains significantly tachypneic and is struggling to maintain oxygen saturations of 92% on [address] patient on Airvo. ABG demonstrated mild respiratory alkalosis. I had initially ordered a dose of Lasix due to crackles on exam but further laboratory findings demonstrated lactic acidosis in a low serum bicarb. The patient's mucous membranes are dry his lips are peeling. He appears more intervascular volume depleted despite nursing reporting that the patient has drinks 5-6 L of water a day or more and receiving IV fluid hydration. According to the cumulative fluid summary the patient is about 4.5 L positive for admission. Patient has remained on Zosyn since admission. CT of the abdomen pelvis demonstrated stable postoperative findings. It Is unclear if the patient is developing sepsis verses, possible ARDS, pulmonary edema seems less likely given lack of findings on imaging. Stat troponin has been ordered. Will repeat EKG. Will check cheetah score is see if patient is fluid responsive. And check echocardiogram to evaluate cardiac structure and function. Electrolyte panel did demonstrate mild hypokalemia. Will check magnesium level and replace if needed. Will give 40 mEq potassium chloride rider. Given poor contrast timing on CTA will obtain lower extremity Dopplers to rule out DVT. patient was taken to OR and had emergent exploratory laparotomy, ileocolic resection, patient was transferred to IMU, when I saw the patient he was complaining of severe abdominal pain, I repeat CT scan of the abdomen without contrast and discuss the case with the Bicycle Service Technician Dr. Lugo, who examined the patient and transferred to patient to ICU for close observation and management. appreciate assistance of the main line station engineer and patient was intubated and remain on ventilator, patient has developed septic shock, febrile, blood culture no growth so far, he being weaned off Vasopressors, patient is being treated with Zosyn, and micafungin, patient is seen by main line station engineer, surgery service will monitor and follow. Review of Systems Review of Systems: ROS unobtainable: Yes unobtainable due to endotracheal tube Exam Narrative: Patient appears in pain Patient is comfortable, NAD HEENT: eyes are clear and none icteric LUNGS:CTA HEART: RR S1S2 ABD: BS+, distended and tender Lower extremities: no edema SKIN: nonjaundiced Neuro: grossly intact. Objective Data Vital Signs Vital Signs: Vital Signs - 24 hr 11/25/24 20:00 11/25/24 20:00 11/25/24 20:00 Temperature Pulse Rate 87 87 87 Respiratory Rate 24 H Blood Pressure 101/49 L Pulse Oximetry 92 Oxygen Delivery Mechanical Ventilation Fraction of Inspired Oxygen 75 11/25/24 20:00 11/25/24 20:00 11/25/24 20:00 Temperature 38.2 C H Pulse Rate 82 82 Respiratory Rate 22 H 22 H Blood Pressure 101/49 L Pulse Oximetry 93 Oxygen Delivery Fraction of Inspired Oxygen 75 11/25/24 20:00 11/25/24 20:00 11/25/24 20:46 Temperature Pulse Rate 82 82 93 Respiratory Rate 22 H 24 H Blood Pressure 101/49 L Pulse Oximetry Oxygen Delivery Fraction of Inspired Oxygen 11/25/24 20:46 11/25/24 20:50 11/25/24 22:00 Temperature Pulse Rate 95 82 90 Respiratory Rate 24 H Blood Pressure Pulse Oximetry 93 Oxygen Delivery Mechanical Ventilation Fraction of Inspired Oxygen 75 11/25/24 22:00 11/25/24 22:00 11/25/24 22:00 Temperature 38.2 C H Pulse Rate 90 88 87 Respiratory Rate 22 H 22 H 22 H Blood Pressure 102/48 L Pulse Oximetry 92 Oxygen Delivery Fraction of Inspired Oxygen 11/25/24 23:53 11/26/24 00:00 11/26/24 00:00 Temperature Pulse Rate 97 97 97 Respiratory Rate 22 H Blood Pressure 103/54 L Pulse Oximetry 93 93 Oxygen Delivery Mechanical Ventilation Mechanical Ventilation Fraction of Inspired Oxygen 75 75 11/26/24 00:00 11/26/24 00:00 11/26/24 00:00 Temperature 38.3 C H Pulse Rate 97 97 Respiratory Rate 22 H Blood Pressure 103/52 L Pulse Oximetry 93 Oxygen Delivery Fraction of Inspired Oxygen 75 11/26/24 00:00 11/26/24 02:00 11/26/24 02:00 Temperature 38.3 C H Pulse Rate 95 85 85 Respiratory Rate 22 H 22 H Blood Pressure 112/57 L Pulse Oximetry 95 Oxygen Delivery Fraction of Inspired Oxygen 11/26/24 02:00 11/26/24 02:00 11/26/24 02:23 Temperature Pulse Rate 85 85 84 Respiratory Rate 22 H 22 H 26 H Blood Pressure Pulse Oximetry Oxygen Delivery Fraction of Inspired Oxygen 11/26/24 02:24 11/26/24 04:00 11/26/24 04:00 Temperature Pulse Rate 83 83 90 Respiratory Rate 22 H Blood Pressure 107/49 L Pulse Oximetry 93 93 Oxygen Delivery Mechanical Ventilation Mechanical Ventilation Fraction of Inspired Oxygen 75 75 11/26/24 04:00 11/26/24 04:00 11/26/24 04:00 Temperature 38.5 C H Pulse Rate 90 90 Respiratory Rate 90 H Blood Pressure 107/50 L Pulse Oximetry 93 Oxygen Delivery Fraction of Inspired Oxygen 75 11/26/24 06:00 11/26/24 06:00 11/26/24 08:00 Temperature 38.4 C H 38.8 C H Pulse Rate 99 90 100 Respiratory Rate 22 H 21 H Blood Pressure 101/63 118/57 L Pulse Oximetry 93 92 Oxygen Delivery Fraction of Inspired Oxygen 11/26/24 08:00 11/26/24 08:00 11/26/24 08:00 Temperature Pulse Rate 100 Respiratory Rate 21 H Blood Pressure Pulse Oximetry 92 Oxygen Delivery Mechanical Ventilation Fraction of Inspired Oxygen 65 65 11/26/24 08:00 11/26/24 08:00 11/26/24 08:00 Temperature Pulse Rate 100 100 97 Respiratory Rate 21 H Blood Pressure 118/57 L Pulse Oximetry Oxygen Delivery Fraction of Inspired Oxygen 11/26/24 08:13 11/26/24 08:13 11/26/24 08:24 Temperature Pulse Rate 94 94 104 H Respiratory Rate 22 H 32 H Blood Pressure Pulse Oximetry 93 Oxygen Delivery Mechanical Ventilation Fraction of Inspired Oxygen 65 11/26/24 09:28 11/26/24 09:28 11/26/24 09:31 Temperature Pulse Rate 105 H 105 H 104 H Respiratory Rate 25 H 25 H Blood Pressure 124/59 L Pulse Oximetry Oxygen Delivery Fraction of Inspired Oxygen 11/26/24 10:00 11/26/24 10:00 11/26/24 10:00 Temperature 38.8 C H Pulse Rate 112 H 112 H 98 Respiratory Rate 25 H 25 H Blood Pressure 140/66 Pulse Oximetry 92 Oxygen Delivery Fraction of Inspired Oxygen 11/26/24 10:00 11/26/24 11:00 11/26/24 12:00 Temperature Pulse Rate 112 H 103 H Respiratory Rate 25 H Blood Pressure Pulse Oximetry 93 93 Oxygen Delivery Mechanical Ventilation Mechanical Ventilation Fraction of Inspired Oxygen 65 60 11/26/24 12:00 11/26/24 12:00 11/26/24 12:00 Temperature 38.5 C H Pulse Rate 83 80 Respiratory Rate 22 H 23 H Blood Pressure 126/76 Pulse Oximetry 94 Oxygen Delivery Fraction of Inspired Oxygen 60 11/26/24 12:00 11/26/24 12:00 11/26/24 14:00 Temperature 38.3 C H Pulse Rate 80 82 79 Respiratory Rate 23 H 22 H Blood Pressure 124/71 Pulse Oximetry 94 Oxygen Delivery Fraction of Inspired Oxygen 11/26/24 14:00 11/26/24 14:00 11/26/24 14:00 Temperature Pulse Rate 79 79 79 Respiratory Rate 22 H 22 H Blood Pressure Pulse Oximetry Oxygen Delivery Fraction of Inspired Oxygen 11/26/24 14:50 11/26/24 14:50 11/26/24 14:56 Temperature Pulse Rate 89 89 90 Respiratory Rate 22 H 22 H Blood Pressure Pulse Oximetry 95 Oxygen Delivery Mechanical Ventilation Fraction of Inspired Oxygen 60 11/26/24 16:00 11/26/24 16:00 11/26/24 16:00 Temperature Pulse Rate 90 90 Respiratory Rate 25 H 25 H Blood Pressure Pulse Oximetry 95 Oxygen Delivery Mechanical Ventilation Fraction of Inspired Oxygen 55 11/26/24 16:00 11/26/24 16:00 11/26/24 16:00 Temperature 37.9 C H Pulse Rate 96 95 Respiratory Rate 23 H Blood Pressure 142/85 H Pulse Oximetry 95 Oxygen Delivery Fraction of Inspired Oxygen 55 11/26/24 18:00 11/26/24 18:00 11/26/24 18:00 Temperature 37.7 C H Pulse Rate 71 71 71 Respiratory Rate 21 H 20 Blood Pressure 128/75 Pulse Oximetry 96 Oxygen Delivery Fraction of Inspired Oxygen 11/26/24 18:00 Temperature Pulse Rate 71 Respiratory Rate 21 H Blood Pressure Pulse Oximetry Oxygen Delivery Fraction of Inspired Oxygen Intake/Output Intake/Output: Intake & Output 11/23/24 11/24/24 11/25/24 11/26/24 23:59 23:59 23:59 23:59 Intake Total 2342.8 3160.6 2905.3 1716.1 Output Total 800 1700 1770 3295 Balance 1542.8 1460.6 1135.3 -1578.9 Meds/Results Medications: Active Medications Generic Name Dose Route Start Last Admin Trade Name Freq PRN Reason Stop Dose Admin Dextrose 12.5 gm 11/24/24 08:03 Dextrose 50% 25 Gm/50 Ml Syringe IV PUSH PRN PRN Hypoglycemia Protocol Enoxaparin Sodium 40 mg 11/21/24 09:00 11/26/24 08:02 Enoxaparin 40 Mg/0.4 Ml Syringe SUB-Q 40 mg DAILY TAMICA Administration Glucagon 1 mg 11/24/24 08:03 Glucagon For Inj 1 Mg Vial IM PRN PRN Hypoglycemia Protocol Glucose 15 gm 11/24/24 08:03 Glucose Oral Gel 15 Gm Of Glucse In 37.5 Gm Tube PO PRN PRN Hypoglycemia Protocol Hydrocortisone Sodium Succinate 50 mg 11/26/24 18:00 11/26/24 17:24 Hydrocortisone Sodium Succinate 100 Mg/2 Ml Vial IV PUSH 11/28/24 06:01 50 mg Q12H TAMICA Administration Fentanyl Citrate 2,500 mcg in 250 mls @ 12.5 mls/hr 11/23/24 14:05 11/26/24 18:00 Fentanyl 2,500 Mcg/Ns 250 Ml IV CONT 125 mcg/hr .Q20H TAMICA 12.5 mls/hr Titration Protocol 125 MCG/HR Midazolam HCl 100 mg in 100 mls @ 4 mls/hr 11/23/24 21:45 11/26/24 18:00 Versed 100 Mg/Ns 100 Ml IV CONT 4 mg/hr .Q25H TAMICA 4 mls/hr Titration Protocol 4 MG/HR Micafungin Sodium 100 mg/ 100 mls @ 100 mls/hr 11/24/24 09:00 11/26/24 09:01 Sodium Chloride IVPB Infused DAILY TAMICA Infusion Dextrose 1,000 mls @ 100 mls/hr 11/24/24 08:03 Dextrose 5% 1,000 Ml IVPB PRN PRN Hypoglycemia Protocol Multivitamins 1.25 ml/ 1,002.5 mls @ 40 mls/hr 11/25/24 15:00 11/26/24 16:12 Multivitamins 1.25 ml/ Amino IV CONT 40 mls/hr Acids/Dextrose .Q24H TAMICA Administration Protocol Dextrose 1,000 mls @ 50 mls/hr 11/25/24 14:02 Dextrose 10% IV CONT .Q20H PRN if PN is interrupted Fat Emulsion Intravenous 250 mls @ 20.833 mls/hr 11/25/24 15:00 11/26/24 15:57 Lipids 20% IVPB 20.83 mls/hr Q24H TAMICA Administration Meropenem 1 gm/ Sodium 100 mls @ 200 mls/hr 11/26/24 15:00 11/26/24 16:24 Chloride IVPB Infused Q8H TAMICA Infusion Vancomycin HCl 1,250 mg in 250 mls @ 166.667 mls/hr 11/26/24 17:30 11/26/24 17:24 Vancomycin 1,250 Mg/Ns 250 Ml IVPB 11/26/24 18:59 166.67 mls/hr ONCE ONE Administration Vancomycin HCl 1,500 mg in 500 mls @ 250 mls/hr 11/27/24 04:00 Vancomycin 1,500 Mg/Ns 500 Ml IVPB Q12H TAMICA Insulin Aspart 3 - 6 units 11/24/24 09:00 11/26/24 16:12 Insulin Aspart (*Bkc) 100 Units/Ml SUB-Q 3 units Q4H TAMICA Administration Protocol Insulin Glargine 16 units 11/26/24 09:00 11/26/24 08:01 Insulin Glargine (*Bkc) 100 Units/Ml SUB-Q 16 units DAILY TAMICA Administration Ipratropium [place]son 0.5 mg 11/23/24 14:00 11/26/24 14:50 Ipratropium Br 0.02% Inh Soln 0.5 Mg/2.5 Ml Vial INHALATION 0.5 mg Q6HRT TAMICA Administration Levalbuterol HCl 0.63 mg 11/23/24 14:00 11/26/24 14:50 Levalbuterol Neb 1.25 Mg/3 Ml INHALATION 0.63 mg Q6HRT TAMICA Administration Midazolam HCl 2 mg 11/23/24 21:45 Midazolam Hcl (*Crx) 2 Mg/2 Ml Vial IV PUSH Q5M PRN ventilator asynchrony Multi-Ingred Cream/Lotion/Oil/Oint 1 applic 11/23/24 21:00 11/26/24 08:01 Mineral Oil/White Petrolatum Ointment EACH EYE 1 applic Q12HR TAMICA Administration Pantoprazole Sodium 40 mg 11/24/24 09:00 11/26/24 08:00 Pantoprazole Sodium Iv 40 Mg Vial IV PUSH 40 mg QAM TAMICA Administration Sodium Chloride 10 ml 11/23/24 14:00 11/26/24 13:02 Central Line Flush IV PUSH 10 ml Q8HR TAMICA Administration Sodium Chloride 10 ml 11/23/24 13:39 Central Line Flush IV PUSH PRN PRN with TPN bag changes Sodium Chloride 20 ml 11/23/24 13:39 Central Line Flush IV PUSH PRN PRN after blood draws Radiology Results: ITS Impressions Chest CTA 11/23/24 05:53 IMPRESSION: 1. Free intraperitoneal air in the upper abdomen. Correlate for recent surgery. In the absence of known surgery this is most likely secondary to bowel perforation. Clinically correlate. 2: No large central pulmonary embolism. Limited evaluation of the secondary and tertiary pulmonary arteries. 3: Small right pleural effusion. Dependent atelectasis. 4: Ascites. Abdomen/Pelvis CT 11/23/24 13:00 IMPRESSION: 1. Increasing free intraperitoneal air 11/22/2024, suspicious for bowel leak. Increasing fluid in the mesentery with ascites involving the perihepatic space. No discrete abscess identified. Consider correlation with contrast-enhanced CT abdomen. 2: Increasing consolidation of the lower lobes which may represent atelectasis or pneumonia. 3: Developing small pleural effusions. Abdomen X-Ray 11/23/24 14:04 IMPRESSION: 1: NG tube tip in the stomach. 2: Bibasilar airspace disease, edema versus pneumonia. Chest X-Ray 11/26/24 06:27 IMPRESSION: Moderate right and small left-sided pleural effusion. Endotracheal tube in good position. Advancement of the orogastric tube approximately 4 to 6 cm is recommended for optimal radiographic placement. Head CT 11/26/24 14:47 Impression: No acute intracranial hemorrhage or suspicious mass effect. Chest/Abdomen/Pelvis CTA 11/26/24 14:58 IMPRESSION: No pulmonary embolus. No aortic dissection. Small bilateral pleural effusions, right greater than left with adjacent consolidation, an interval change from prior. Gallbladder distention with mural thickening and surrounding inflammatory change. Right middle and lower lobe nodules, for which follow-up may be performed once patient is beyond this acute phase. No discrete intraperitoneal air is appreciated. Simple free fluid within the dependent portions of the abdomen. Venous Doppler Study 11/26/24 15:27 IMPRESSION: 1. No deep venous thrombosis within the bilateral lower extremities, as detailed above. Labs Labs: Laboratory Results - last 24 hr 11/25/24 11/26/24 11/26/24 21:11 04:59 07:47 WBC 21.1 H RBC 2.99 L Hgb 9.5 L Hct 29.1 L MCV 97.3 MCH 31.8 MCHC 32.6 RDW 13.8 Plt Count 177 MPV 10.0 Immature Gran % (Auto) 5.5 H Neut % (Auto) 85.4 H Lymph % (Auto) 4.9 L Harrison % (Auto) 3.7 Eos % (Auto) 0.0 Baso % (Auto) 0.5 Lymph # (Auto) 1.03 Harrison # (Auto) 0.8 H Eos # (Auto) 0.0 Baso # (Auto) 0.1 Abs Immat Gran (auto) 1.16 H Absolute Neuts (auto) 18.0 H Absolute Nucleated RBC 0.020 H Nucleated RBC % 0.1 Puncture Site Artline ABG pH 7.463 H ABG pCO2 35.9 ABG pO2 92.4 ABG PO2/FiO2 Ratio 1.23 ABG HCO3 25.1 ABG O2 Saturation 97.5 ABG O2 Content 14.1 L ABG Base Excess 1.5 A-a Gradient 404.2 Oxyhemoglobin 96.5 Carboxyhemoglobin 0.3 Methemoglobin 0.3 Reduced Hemoglobin 2.9 Total Hemoglobin 10.3 L O2 Delivery Device Ventilator O2 Liters/Min Not Reportable Minute Volume Not Reportable Vent Rate 22 Vent Mode Cmv FiO2 75 Tidal Volume 450 PEEP 12 Peak Inspir Pressure Not Reportable Pressure Support Not Reportable Sodium 139 Potassium 3.9 Chloride 108 H Carbon Dioxide 27 Anion Gap 4 BUN 34 H Creatinine 1.00 Estim Creat Clear Calc 93 Estimated GFR > 60 Glucose 295 H POC Capillary Glucose 246 H 296 H Lactic Acid 1.1 Calcium 8.0 L Phosphorus 2.4 L Magnesium 2.9 H Total Bilirubin 1.5 H AST 37 ALT 31 Alkaline Phosphatase 88 Total Protein 5.2 L Albumin 2.4 L Triglycerides 11/26/24 11/26/24 11/26/24 11:53 15:02 15:53 WBC RBC Hgb Hct MCV MCH MCHC RDW Plt Count MPV Immature Gran % (Auto) Neut % (Auto) Lymph % (Auto) Harrison % (Auto) Eos % (Auto) Baso % (Auto) Lymph # (Auto) Harrison # (Auto) Eos # (Auto) Baso # (Auto) Abs Immat Gran (auto) Absolute Neuts (auto) Absolute Nucleated RBC Nucleated RBC % Puncture Site ABG pH ABG pCO2 ABG pO2 ABG PO2/FiO2 Ratio ABG HCO3 ABG O2 Saturation ABG O2 Content ABG Base Excess A-a Gradient Oxyhemoglobin Carboxyhemoglobin Methemoglobin Reduced Hemoglobin Total Hemoglobin O2 Delivery Device O2 Liters/Min Minute Volume Vent Rate Vent Mode FiO2 Tidal Volume PEEP Peak Inspir Pressure Pressure Support Sodium Potassium Chloride Carbon Dioxide Anion Gap BUN Creatinine Estim Creat Clear Calc Estimated GFR Glucose POC Capillary Glucose 273 H 216 H Lactic Acid Calcium Phosphorus Magnesium Total Bilirubin AST ALT Alkaline Phosphatase Total Protein Albumin Triglycerides 359 H Quality VTE Prophylaxis VTE prophylaxis: pharmacologic ordered (Lovenox 40 mg subQ daily)
[2024-11-26 19:22] LABS: MRSA (PCR) NOT DETECTED (NOT DETECTE)
[2024-11-26] MEDS: FENTANYL 2,500MCG/NS250ML(*CRX 2,500 MCG/250 ML BAG 12.5 MCG IV CONT (22:37)
[2024-11-27] VITALS (29 sets, daily range): BP systolic 111–151; BP diastolic 66–109; PULSE 61–91; RESP 18–22; TEMP 37.8–38.4; O2SAT 95–99
[2024-11-27] MEDS: INSULIN ASPART (*BKC) 100 UNITS/ML SUB-Q ×3 (00:06→12:15)
[2024-11-27] MEDS: IPRATROPIUM BR 0.02% INH SOLN 0.5 MG/2.5 ML VIAL INHALATION ×4 (01:42→21:24)
[2024-11-27] MEDS: VANCOMYCIN 1,500 MG/NS 500 ML 1,500 MG/500 ML BAG 250 MG IVPB ×2 (04:34→16:59)
[2024-11-27 04:42] LABS: Alveolar/Arterial O2 Gradient 225.2 mmHg; Carboxyhemoglobin 0.3 % THb (0-2.0); Fractional Inspired Oxygen 55 %; HCO3 ABG 29.7 mEq/l (22.0-26.0); Methemoglobin ABG 0.3 %THb (0-1.5); Oxygen Content ABG 14.6 %vol (16.0-22.0); Oxygen Saturation ABG 98.5 % (95.0-100.0); PCO2 ABG 42.2 mmHg (35.0-45.0); PO2 ABG 120.0 mmHg (80.0-100.0); PO2 FiO2 Ratio Arterial Blood 2.18 %; Reduced Hemoglobin 1.7 %THb (0-5.0)
[2024-11-27 04:44] LABS: Modified Allen's Test Pass; Site Drawn LEFT RADIAL
[2024-11-27 04:45] LABS: Arterial Blood Gas Tidal Volume 450 ml; Arterial Blood Gas Ventilator rate 20 /MIN
[2024-11-27 04:54] LABS: Hematocrit 29.9 % (42.0-52.0); Hemoglobin 9.6 g/dL (14.0-18.0); Immature Granulocyte Percent A 7.4 % (0-0.5); Lymphocytes Absolute Auto 1.72 K/mm3 (0.9-3.2); Mean Corpuscular HGB Conc 32.1 g/dl (32-36); Mean Corpuscular Hemoglobin 32.2 pg (26-34); Mean Corpuscular Volume 100.3 fl (80-100); Nucleated Red Blood Cells Absolute Auto 0.030 K/mm3 (0.0-0.012); Nucleated Red Blood Cells Perc 0.2 % (0.0-0.2); Platelet Count Result 169 k/mm3 (150-375); Red Blood Count 2.98 M/mm3 (4.6-6.20); White Blood Count 15.9 K/mm3 (4.5-10.0)
[2024-11-27 05:14] LABS: Alanine Aminotransferase 39 U/L (6-50); Albumin Level 2.5 g/dL (3.5-5.1); Alkaline Phosphatase 93 U/L (38-126); Anion Gap 4 mmol/L (4-12); Aspartate Amino Transferase 53 U/L (17-59); Bilirubin,Total 1.3 mg/dL (0.2-1.3); Blood Urea Nitrogen 33 mg/dL (9-20); Calcium 8.2 mg/dL (8.4-10.2); Carbon Dioxide 30 mmol/L (22-30); Chloride 107 mmol/L (98-107); Estimated CRCL calculation 109 ml/min; Estimated Glomerular Filt Rate > 60; Glucose 203 mg/dL (65-110); Magnesium 2.7 mg/dL (1.6-2.3); Potassium 3.4 mmol/L (3.4-5.0); Sodium 141 mmol/L (137-145); Total Protein 5.4 g/dL (6.3-8.2)
[2024-11-27] MEDS: HYDROCORTISONE SODIUM SUCCINATE 100 MG/2 ML VIAL 50 MG IV PUSH ×2 (06:31→16:59)
[2024-11-27] MEDS: CENTRAL LINE FLUSH 10 ML IV PUSH ×3 (06:33→20:10)
[2024-11-27] MEDS: MIDAZOLAM 100MG/NS 100ML(*CRX) 100 MG/100 ML BAG 7 MG IV CONT ×2 (06:38→23:00)
[2024-11-27] MEDS: MEROPENEM 1 GM in SODIUM CHLORIDE 0.9% IV 100 ML 200 ML IVPB ×3 (06:41→23:03)
[2024-11-27] MEDS: PANTOPRAZOLE SODIUM IV 40 MG VIAL IV PUSH (08:54)
[2024-11-27] MEDS: ENOXAPARIN 40 MG/0.4 ML SYRINGE SUB-Q (08:54)
[2024-11-27] MEDS: INSULIN GLARGINE (*BKC) 100 UNITS/ML 16 UNITS SUB-Q (08:55)
[2024-11-27] MEDS: MICAFUNGIN SODIUM 100 MG in SODIUM CHLORIDE 0.9% IV 100 ML IVPB (08:57)
[2024-11-27] MEDS: KCL 40 MEQ/WATER 100 ML 100 ML 25 ML IVPB (08:57)
[2024-11-27] MEDS: MINERAL OIL/WHITE PETROLATUM OINTMENT 1 APPLIC EACH EYE ×2 (08:58→20:09)
--- NOTE | 2024-11-27 11:29 | P.PNINT_ITS ---
Progress Note: A&P Assessment and Plan (1) Acute hypoxic respiratory failure: Code(s): J96.01 - Acute respiratory failure with hypoxia Status: Acute Assessment and Plan: Acute respiratory failure likely related to SIRS/sepsis -11/22: CTA chest: No large central PE, small right pleural effusion, dependent atelectasis, ascites, free intraperitoneal air in the upper abdomen correlate for some recent surgery -patient was initially placed on 10 L nasal cannula, now on high-flow therapy 60 L flow rate and 77% FiO2 -patient significantly tachypneic, breathing 40+ times a minute, with O2 side of 90-92% -11/23: Intubated in the ICU -chest x-ray and ABGs reviewed this morning, ventilator adjusted, increased PEEP to 12 and FiO2 to 70%, wean FiO2 to maintain O2 sats greater than 92% -continue bronchodilators -sedated with fentanyl and Versed infusion, maintain RASS of -2 for now -discontinued IV fluids -11/26:responded well to Bumex -11/27: Will diurese again today (2) Septic shock: Code(s): A41.9 - Sepsis, unspecified organism; R65.21 - Severe sepsis with septic shock Status: Acute Assessment and Plan: Patient POD #3, tachypneic with hypoxic respiratory failure, lactic acidosis, increasing WBC count, anion gap metabolic acidosis -initial lactic acids were elevated on 11/24/2023 when patient was brought to the ICU, adequately fluid-resuscitated before patient was taken to the OR -likely related to SIRS/severe sepsis secondary to ruptured appendicitis -11/22: CT scan of the abdomen and pelvis this morning showed postop changes consider the since surgery likely appendectomy, no abscess identified. Small pleural effusion with dependent atelectasis -11/23: Repeat CT scan of the abdomen and pelvis without contrast showed increasing free intraperitoneal air suspicious for bowel leak. Increasing fluid in the mesentery with ascites involving the perihepatic space. No discrete abscess identified. Increasing consolidation of the lower lobes which may represent atelectasis or pneumonia. Developing small pleural effusions -discussed CT results with surgeon, - 11/23: Exploratory laparotomy with ileocolic resection for bowel perforation (cecal perforation) with spillage of bowel contents in the abdominal cavity -OFF ALL PRESSORS, maintain MAP > 65 mmHg or SBP> 100 mmHg -WEAN stress dose steroids - -11/24: Blood cultures negative x2 -11/24: Sputum cultures pending -11/24: Urine cultures no growth -lactic acid has resolved -continue Zosyn (11/20) and micafungin (11/24) 11/26: Patient has been febrile, Zosyn was discontinued, meropenem and vancomycin added due to consolidation in the right lung > left long as seen on CT scan as under 11/26: CT brain no acute intracranial hemorrhage or suspicious mass effect 11/26: Bilateral lower extremity venous Dopplers were negative for DVTs 11/26/2024: CTA chest/abdomen/pelvis IMPRESSION: No pulmonary embolus. No aortic dissection. Small bilateral pleural effusions, right greater than left with adjacent consolidation, an interval change from prior. Gallbladder distention with mural thickening and surrounding inflammatory change. Right middle and lower lobe nodules, for which follow-up may be performed once patient is beyond this acute phase. No discrete intraperitoneal air is appreciated. Simple free fluid within the dependent portions of the abdomen. (3) Metabolic acidosis: Code(s): E87.20 - Acidosis, unspecified Status: Acute Assessment and Plan: RESOLVED Patient developed metabolic acidosis likely related to lactic acidosis - will give additional IV fluids secondary to severe sepsis -continue urine output, renal function, electrolyte -lactic acid is normal -urine output has been adequate, Normal creatinine for now (4) Status post appendectomy: Onset Date: 11/20/24 Code(s): Z90.49 - Acquired absence of other specified parts of digestive tract Status: Acute Assessment and Plan: 11/20: Discussed with surgery, NG tube will be inserted due to abdominal distension 11/23: Exploratory laparotomy with ileocolic resection for bowel perforation (cecal perforation) with spillage of bowel contents in the abdominal cavity 11/24: Wound VAC placed Treatment plans as above -pain control with fentanyl infusion -11/25: started on TPN after discussing with surgery 11/27: Discussed with surgery, will start trickle tube feeds, started 10 mL, increased to a goal of 20 mL (5) Hyperglycemia: Code(s): R73.9 - Hyperglycemia, unspecified Status: Acute Assessment and Plan: Related to stress response and/or steroids -Accu-Cheks and sliding scale insulin -continue Lantus Plan DVT prophylaxis: Lovenox Stress ulcer prophylaxis: Protonix Nutrition: TPN, starting on trickle tube feeds Code Status: Full code Critical Care Time Spent: 33 minutes Discussed with patient's sister GABRIELA Charles, updated her with patient's condition plan of care. She had patient is only on 1 pressor to this morning, wound will put, acidosis has resolved, kidney functions and normal. I answered all her questions Due to a high probability of clinically significant, life threatening deteri oration, the patient required my highest level of preparedness to intervene emergently and I personally spent this critical care time directly and personally managing the patient. This critical care time included obtaining a history; examining the patient; pulse oximetry; ordering and review of studies; arranging urgent treatment with development of a management plan; evaluation of patient's response to treatment; frequent reassessment; and discussions with other providers. It was exclusive of separately billable procedures and treating other patients and teaching time. Please see Assessment and Plan section and the rest of the note for further information on patient assessment and treatment This dictation may have been done utilizing a voice recognition system. Attempts have been made to correct errors. However, there may be uncorrected grammatical, spelling, and recognitions errors present. Subjective Date/time seen: 11/27/24 11:29 Interval history: Reason for consult: Acute hypoxic respiratory failure requiring intubation and mechanical ventilation, status post appendicectomy 11/22/2024, septic shock 11/23: Exploratory laparotomy with ileocolic resection for bowel perforation (cecal perforation) with spillage of bowel contents in the abdominal cavity 11/27/2024: Patient seen and examined the ICU, remains intubated on CMV mode of ventilation, peep of 12, 50% FiO2, sedated with fentanyl Versed infusion, does not open his eyes or follow simple commands, off all pressors. Urine output has been good in response to diuresis. Fever curve has improved. WBC count trending down. FiO2 requirements are coming down Review of Systems Review of Systems: ROS unobtainable: Yes unobtainable due to endotracheal tube, unobtainable due to medical condition and unobtainable due to mental status Exam Narrative: General: Intubated in singing in acute distress HEENT:? Pupils pinpoint and sluggish, sclera is clear Neck:? Supple Respiratory:? Coarse breath sounds bilaterally, decreased at bases, adequate air entry, no wheezing Cardiac:? S1-S2 is normal, normal sinus rhythm Abdomen:? Abdominal is soft, nondistended, midline incision with dressing in place, unable to hear any bowel sounds Extremities:? No edema, palpable pedal pulses, warm extremities Neuro:? Intubated, sedated, opens his eyes but does not follow simple commands Skin:? Warm and dry Psych:? Unable to assess at this time Objective Data Vital Signs Vital Signs: Vital Signs - 24 hr 11/26/24 12:00 11/26/24 12:00 11/26/24 12:00 Temperature 101.3 F H Pulse Rate 83 Respiratory Rate 22 H Blood Pressure 126/76 Pulse Oximetry 93 94 Oxygen Delivery Mechanical Ventilation Fraction of Inspired Oxygen 60 60 11/26/24 12:00 11/26/24 12:00 11/26/24 12:00 Temperature Pulse Rate 80 80 82 Respiratory Rate 23 H 23 H Blood Pressure Pulse Oximetry Oxygen Delivery Fraction of Inspired Oxygen 11/26/24 14:00 11/26/24 14:00 11/26/24 14:00 Temperature 101 F H Pulse Rate 79 79 79 Respiratory Rate 22 H 22 H Blood Pressure 124/71 Pulse Oximetry 94 Oxygen Delivery Fraction of Inspired Oxygen 11/26/24 14:00 11/26/24 14:50 11/26/24 14:50 Temperature Pulse Rate 79 89 89 Respiratory Rate 22 H 22 H Blood Pressure Pulse Oximetry 95 Oxygen Delivery Mechanical Ventilation Fraction of Inspired Oxygen 60 11/26/24 14:56 11/26/24 16:00 11/26/24 16:00 Temperature Pulse Rate 90 90 90 Respiratory Rate 22 H 25 H 25 H Blood Pressure Pulse Oximetry Oxygen Delivery Fraction of Inspired Oxygen 11/26/24 16:00 11/26/24 16:00 11/26/24 16:00 Temperature 100.3 F H Pulse Rate 96 Respiratory Rate 23 H Blood Pressure 142/85 H Pulse Oximetry 95 95 Oxygen Delivery Mechanical Ventilation Fraction of Inspired Oxygen 55 55 11/26/24 16:00 11/26/24 18:00 11/26/24 18:00 Temperature 100 F H Pulse Rate 95 71 71 Respiratory Rate 21 H Blood Pressure 128/75 Pulse Oximetry 96 Oxygen Delivery Fraction of Inspired Oxygen 11/26/24 18:00 11/26/24 18:00 11/26/24 20:00 Temperature Pulse Rate 71 71 76 Respiratory Rate 20 21 H 20 Blood Pressure Pulse Oximetry Oxygen Delivery Fraction of Inspired Oxygen 11/26/24 20:00 11/26/24 20:00 11/26/24 20:00 Temperature 100.2 F H Pulse Rate 76 76 Respiratory Rate 20 20 Blood Pressure 139/79 Pulse Oximetry 95 Oxygen Delivery Fraction of Inspired Oxygen 55 11/26/24 20:00 11/26/24 20:00 11/26/24 20:02 Temperature Pulse Rate 76 65 Respiratory Rate 22 H Blood Pressure Pulse Oximetry 95 Oxygen Delivery Mechanical Ventilation Fraction of Inspired Oxygen 55 11/26/24 20:03 11/26/24 22:00 11/26/24 22:00 Temperature Pulse Rate 65 82 82 Respiratory Rate 20 20 Blood Pressure Pulse Oximetry 95 Oxygen Delivery Mechanical Ventilation Fraction of Inspired Oxygen 55 11/26/24 22:00 11/26/24 22:00 11/26/24 22:27 Temperature 100.3 F H Pulse Rate 78 78 84 Respiratory Rate 13 Blood Pressure 138/73 Pulse Oximetry 94 97 Oxygen Delivery Mechanical Ventilation Fraction of Inspired Oxygen 55 11/26/24 22:37 11/26/24 23:18 11/26/24 23:28 Temperature Pulse Rate 88 103 H 90 Respiratory Rate 20 20 Blood Pressure Pulse Oximetry 96 Oxygen Delivery Mechanical Ventilation Fraction of Inspired Oxygen 55 11/26/24 23:54 11/27/24 00:00 11/27/24 00:00 Temperature Pulse Rate 79 82 Respiratory Rate 20 20 Blood Pressure Pulse Oximetry Oxygen Delivery Fraction of Inspired Oxygen 55 11/27/24 00:00 11/27/24 00:00 11/27/24 00:00 Temperature 100.4 F H Pulse Rate 79 80 Respiratory Rate 22 H Blood Pressure 132/109 H Pulse Oximetry 96 96 Oxygen Delivery Mechanical Ventilation Fraction of Inspired Oxygen 55 11/27/24 00:13 11/27/24 01:42 11/27/24 01:45 Temperature Pulse Rate 87 64 66 Respiratory Rate 20 20 Blood Pressure Pulse Oximetry 96 Oxygen Delivery Mechanical Ventilation Fraction of Inspired Oxygen 55 11/27/24 02:00 11/27/24 02:00 11/27/24 02:00 Temperature 100.5 F H Pulse Rate 68 68 68 Respiratory Rate 21 H 20 20 Blood Pressure 126/73 Pulse Oximetry 96 Oxygen Delivery Fraction of Inspired Oxygen 11/27/24 02:00 11/27/24 04:00 11/27/24 04:00 Temperature 100.3 F H Pulse Rate 75 65 65 Respiratory Rate 20 20 Blood Pressure 125/70 Pulse Oximetry 96 Oxygen Delivery Fraction of Inspired Oxygen 11/27/24 04:00 11/27/24 04:00 11/27/24 04:00 Temperature Pulse Rate 65 66 Respiratory Rate 20 Blood Pressure Pulse Oximetry 96 Oxygen Delivery Mechanical Ventilation Fraction of Inspired Oxygen 55 11/27/24 04:00 11/27/24 04:25 11/27/24 06:00 Temperature 100.1 F H Pulse Rate 74 80 Respiratory Rate 20 Blood Pressure 146/78 H Pulse Oximetry 96 96 Oxygen Delivery Mechanical Ventilation Fraction of Inspired Oxygen 55 55 11/27/24 06:00 11/27/24 06:00 11/27/24 06:00 Temperature Pulse Rate 80 80 68 Respiratory Rate 20 20 Blood Pressure Pulse Oximetry Oxygen Delivery Fraction of Inspired Oxygen 11/27/24 06:38 11/27/24 06:38 11/27/24 08:00 Temperature Pulse Rate 76 76 70 Respiratory Rate 20 20 20 Blood Pressure Pulse Oximetry Oxygen Delivery Fraction of Inspired Oxygen 11/27/24 08:00 11/27/24 08:00 11/27/24 08:00 Temperature 100.1 F H Pulse Rate 70 77 Respiratory Rate 20 20 Blood Pressure 144/86 H Pulse Oximetry 95 Oxygen Delivery Fraction of Inspired Oxygen 50 11/27/24 08:00 11/27/24 08:00 11/27/24 08:19 Temperature Pulse Rate 61 62 Respiratory Rate 20 Blood Pressure Pulse Oximetry 98 Oxygen Delivery Mechanical Ventilation Fraction of Inspired Oxygen 50 11/27/24 08:21 11/27/24 08:31 11/27/24 10:00 Temperature 100.4 F H Pulse Rate 63 63 72 Respiratory Rate 18 18 Blood Pressure 148/81 H Pulse Oximetry 98 97 Oxygen Delivery Mechanical Ventilation Fraction of Inspired Oxygen 55 11/27/24 10:00 11/27/24 10:00 11/27/24 10:00 Temperature Pulse Rate 70 70 70 Respiratory Rate 18 18 Blood Pressure Pulse Oximetry Oxygen Delivery Fraction of Inspired Oxygen 11/27/24 11:11 Temperature Pulse Rate 73 Respiratory Rate Blood Pressure Pulse Oximetry 97 Oxygen Delivery Mechanical Ventilation Fraction of Inspired Oxygen 50 Intake/Output Intake/Output: Intake & Output 11/24/24 11/25/24 11/26/24 11/27/24 23:59 23:59 23:59 23:59 Intake Total 3160.6 2905.3 2657.2 1083.3 Output Total 1700 1770 3295 1200 Balance 1460.6 1135.3 -637.8 -116.7 Meds/Results Medications: Active Medications Generic Name Dose Route Start Last Admin Trade Name Freq PRN Reason Stop Dose Admin Dextrose 12.5 gm 11/24/24 08:03 Dextrose 50% 25 Gm/50 Ml Syringe IV PUSH PRN PRN Hypoglycemia Protocol Enoxaparin Sodium 40 mg 11/21/24 09:00 11/27/24 08:54 Enoxaparin 40 Mg/0.4 Ml Syringe SUB-Q 40 mg DAILY TAMICA Administration Glucagon 1 mg 11/24/24 08:03 Glucagon For Inj 1 Mg Vial IM PRN PRN Hypoglycemia Protocol Glucose 15 gm 11/24/24 08:03 Glucose Oral Gel 15 Gm Of Glucse In 37.5 Gm Tube PO PRN PRN Hypoglycemia Protocol Hydrocortisone Sodium Succinate 50 mg 11/26/24 18:00 11/27/24 06:31 Hydrocortisone Sodium Succinate 100 Mg/2 Ml Vial IV PUSH 11/28/24 06:01 50 mg Q12H TAMICA Administration Fentanyl Citrate 2,500 mcg in 250 mls @ 12.5 mls/hr 11/23/24 14:05 11/27/24 10:00 Fentanyl 2,500 Mcg/Ns 250 Ml IV CONT 150 mcg/hr .Q20H TAMICA 15 mls/hr Titration Protocol 125 MCG/HR Midazolam HCl 100 mg in 100 mls @ 6 mls/hr 11/23/24 21:45 11/27/24 10:00 Versed 100 Mg/Ns 100 Ml IV CONT 7 mg/hr .[id number] TAMICA 7 mls/hr Titration Protocol 6 MG/HR Micafungin Sodium 100 mg/ 100 mls @ 100 mls/hr 11/24/24 09:00 11/27/24 08:57 Sodium Chloride IVPB 100 mls/hr DAILY TAMICA Administration Dextrose 1,000 mls @ 100 mls/hr 11/24/24 08:03 Dextrose 5% 1,000 Ml IVPB PRN PRN Hypoglycemia Protocol Multivitamins 1.25 ml/ 1,002.5 mls @ 40 mls/hr 11/25/24 15:00 11/26/24 16:12 Multivitamins 1.25 ml/ Amino IV CONT 40 mls/hr Acids/Dextrose .Q24H TAMICA Administration Protocol Dextrose 1,000 mls @ 50 mls/hr 11/25/24 14:02 Dextrose 10% IV CONT .Q20H PRN if PN is interrupted Fat Emulsion Intravenous 250 mls @ 20.833 mls/hr 11/25/24 15:00 11/27/24 03:58 Lipids 20% IVPB Infused Q24H TAMICA Infusion Meropenem 1 gm/ Sodium 100 mls @ 200 mls/hr 11/26/24 15:00 11/27/24 07:11 Chloride IVPB Infused Q8H TAMICA Infusion Vancomycin HCl 1,500 mg in 500 mls @ 250 mls/hr 11/27/24 04:00 11/27/24 06:34 Vancomycin 1,500 Mg/Ns 500 Ml IVPB Infused Q12H TAMICA Infusion Potassium Chloride 100 mls @ 25 mls/hr 11/27/24 07:58 11/27/24 08:57 Kcl 40 Meq/Water 100 Ml IVPB 11/27/24 11:57 25 mls/hr ONCE ONE Administration Insulin Aspart 3 - 6 units 11/24/24 09:00 11/27/24 08:56 Insulin Aspart (*Bkc) 100 Units/Ml SUB-Q Not Given Q4H COUNT INCLUDES THE [facility] Protocol Insulin Glargine 16 units 11/26/24 09:00 11/27/24 08:55 Insulin Glargine (*Bkc) 100 Units/Ml SUB-Q 16 units DAILY TAMICA Administration Ipratropium [place] 0.5 mg 11/23/24 14:00 11/27/24 08:19 Ipratropium Br 0.02% Inh Soln 0.5 Mg/2.5 Ml Vial INHALATION 0.5 mg Q6HRT TAMICA Administration Levalbuterol HCl 0.63 mg 11/23/24 14:00 11/27/24 08:19 Levalbuterol Neb 1.25 Mg/3 Ml INHALATION 0.63 mg Q6HRT TAMICA Administration Midazolam HCl 2 mg 11/23/24 21:45 Midazolam Hcl (*Crx) 2 Mg/2 Ml Vial IV PUSH Q5M PRN ventilator asynchrony Multi-Ingred Cream/Lotion/Oil/Oint 1 applic 11/23/24 21:00 11/27/24 08:58 Mineral Oil/White Petrolatum Ointment EACH EYE 1 applic Q12HR TAMICA Administration Pantoprazole Sodium 40 mg 11/24/24 09:00 11/27/24 08:54 Pantoprazole Sodium Iv 40 Mg Vial IV PUSH 40 mg QAM TAMICA Administration Sodium Chloride 10 ml 11/23/24 14:00 11/27/24 06:33 Central Line Flush IV PUSH 10 ml Q8HR TAMICA Administration Sodium Chloride 10 ml 11/23/24 13:39 Central Line Flush IV PUSH PRN PRN with TPN bag changes Sodium Chloride 20 ml 11/23/24 13:39 Central Line Flush IV PUSH PRN PRN after blood draws Radiology Results: ITS Impressions Chest CTA 11/23/24 05:53 IMPRESSION: 1. Free intraperitoneal air in the upper abdomen. Correlate for recent surgery. In the absence of known surgery this is most likely secondary to bowel perforation. Clinically correlate. 2: No large central pulmonary embolism. Limited evaluation of the secondary and tertiary pulmonary arteries. 3: Small right pleural effusion. Dependent atelectasis. 4: Ascites. Abdomen/Pelvis CT 11/23/24 13:00 IMPRESSION: 1. Increasing free intraperitoneal air 11/22/2024, suspicious for bowel leak. Increasing fluid in the mesentery with ascites involving the perihepatic space. No discrete abscess identified. Consider correlation with contrast-enhanced CT abdomen. 2: Increasing consolidation of the lower lobes which may represent atelectasis or pneumonia. 3: Developing small pleural effusions. Abdomen X-Ray 11/23/24 14:04 IMPRESSION: 1: NG tube tip in the stomach. 2: Bibasilar airspace disease, edema versus pneumonia. Head CT 11/26/24 14:47 Impression: No acute intracranial hemorrhage or suspicious mass effect. Chest/Abdomen/Pelvis CTA 11/26/24 14:58 IMPRESSION: No pulmonary embolus. No aortic dissection. Small bilateral pleural effusions, right greater than left with adjacent consolidation, an interval change from prior. Gallbladder distention with mural thickening and surrounding inflammatory change. Right middle and lower lobe nodules, for which follow-up may be performed once patient is beyond this acute phase. No discrete intraperitoneal air is appreciated. Simple free fluid within the dependent portions of the abdomen. Venous Doppler Study 11/26/24 15:27 IMPRESSION: 1. No deep venous thrombosis within the bilateral lower extremities, as detailed above. Chest X-Ray 11/27/24 07:01 IMPRESSION: Bilateral pleural effusions. Adjacent compressive consolidation as detected on CT examination. Supportive lines and tubes in good position. Labs Labs: Laboratory Results - last 24 hr 11/26/24 11/26/24 11/26/24 11:53 15:02 15:53 WBC RBC Hgb Hct MCV MCH MCHC RDW Plt Count MPV Immature Gran % (Auto) Neut % (Auto) Lymph % (Auto) [place] % (Auto) Eos % (Auto) Baso % (Auto) Lymph # (Auto) [place] # (Auto) Eos # (Auto) Baso # (Auto) Abs Immat Gran (auto) Absolute Neuts (auto) Absolute Nucleated RBC Nucleated RBC % Puncture Site ABG pH ABG pCO2 ABG pO2 ABG PO2/FiO2 Ratio ABG HCO3 ABG O2 Saturation ABG O2 Content ABG Base Excess A-a Gradient Oxyhemoglobin Carboxyhemoglobin Methemoglobin Reduced Hemoglobin Total Hemoglobin O2 Delivery Device O2 Liters/Min Minute Volume FiO2 Peak Inspir Pressure Pressure Support Sodium Potassium Chloride Carbon Dioxide Anion Gap BUN Creatinine Estim Creat Clear Calc Estimated GFR Glucose POC Capillary Glucose 273 H 216 H Calcium Phosphorus Magnesium Total Bilirubin AST ALT Alkaline Phosphatase Total Protein Albumin Triglycerides 359 H Nasal MRSA (PCR) 11/26/24 11/26/24 11/26/24 18:09 19:55 23:57 WBC RBC Hgb Hct MCV MCH MCHC RDW Plt Count MPV Immature Gran % (Auto) Neut % (Auto) Lymph % (Auto) [place] % (Auto) Eos % (Auto) Baso % (Auto) Lymph # (Auto) [place] # (Auto) Eos # (Auto) Baso # (Auto) Abs Immat Gran (auto) Absolute Neuts (auto) Absolute Nucleated RBC Nucleated RBC % Puncture Site ABG pH ABG pCO2 ABG pO2 ABG PO2/FiO2 Ratio ABG HCO3 ABG O2 Saturation ABG O2 Content ABG Base Excess A-a Gradient Oxyhemoglobin Carboxyhemoglobin Methemoglobin Reduced Hemoglobin Total Hemoglobin O2 Delivery Device O2 Liters/Min Minute Volume FiO2 Peak Inspir Pressure Pressure Support Sodium Potassium Chloride Carbon Dioxide Anion Gap BUN Creatinine Estim Creat Clear Calc Estimated GFR Glucose POC Capillary Glucose 198 H 221 H Calcium Phosphorus Magnesium Total Bilirubin AST ALT Alkaline Phosphatase Total Protein Albumin Triglycerides Nasal MRSA (PCR) Not detected 11/27/24 11/27/24 11/27/24 04:33 04:44 05:56 WBC 15.9 H RBC 2.98 L Hgb 9.6 L Hct 29.9 L MCV 100.3 H MCH 32.2 MCHC 32.1 RDW 14.0 Plt Count 169 MPV 9.8 Immature Gran % (Auto) 7.4 H Neut % (Auto) 77.0 H Lymph % (Auto) 10.8 L [place] % (Auto) 4.3 Eos % (Auto) 0.1 Baso % (Auto) 0.4 Lymph # (Auto) 1.72 [place] # (Auto) 0.7 H Eos # (Auto) 0.0 Baso # (Auto) 0.1 Abs Immat Gran (auto) 1.18 H Absolute Neuts (auto) 12.3 H Absolute Nucleated RBC 0.030 H Nucleated RBC % 0.2 Puncture Site Left radial ABG pH 7.466 H ABG pCO2 42.2 ABG pO2 120.0 H ABG PO2/FiO2 Ratio 2.18 ABG HCO3 29.7 H ABG O2 Saturation 98.5 ABG O2 Content 14.6 L ABG Base Excess 5.5 A-a Gradient 225.2 Oxyhemoglobin 97.7 Carboxyhemoglobin 0.3 Methemoglobin 0.3 Reduced Hemoglobin 1.7 Total Hemoglobin 10.5 L O2 Delivery Device Ventilator O2 Liters/Min Not Reportable Minute Volume Not Reportable FiO2 55 Peak Inspir Pressure Not Reportable Pressure Support Not Reportable Sodium 141 Potassium 3.4 Chloride 107 Carbon Dioxide 30 Anion Gap 4 BUN 33 H Creatinine 0.87 Estim Creat Clear Calc 109 Estimated GFR > 60 Glucose 203 H POC Capillary Glucose 204 H 190 H Calcium 8.2 L Phosphorus 2.7 Magnesium 2.7 H Total Bilirubin 1.3 AST 53 ALT 39 Alkaline Phosphatase 93 Total Protein 5.4 L Albumin 2.5 L Triglycerides Nasal MRSA (PCR) 11/27/24 08:45 WBC RBC Hgb Hct MCV MCH MCHC RDW Plt Count MPV Immature Gran % (Auto) Neut % (Auto) Lymph % (Auto) [place] % (Auto) Eos % (Auto) Baso % (Auto) Lymph # (Auto) [place] # (Auto) Eos # (Auto) Baso # (Auto) Abs Immat Gran (auto) Absolute Neuts (auto) Absolute Nucleated RBC Nucleated RBC % Puncture Site ABG pH ABG pCO2 ABG pO2 ABG PO2/FiO2 Ratio ABG HCO3 ABG O2 Saturation ABG O2 Content ABG Base Excess A-a Gradient Oxyhemoglobin Carboxyhemoglobin Methemoglobin Reduced Hemoglobin Total Hemoglobin O2 Delivery Device O2 Liters/Min Minute Volume FiO2 Peak Inspir Pressure Pressure Support Sodium Potassium Chloride Carbon Dioxide Anion Gap BUN Creatinine Estim Creat Clear Calc Estimated GFR Glucose POC Capillary Glucose 193 H Calcium Phosphorus Magnesium Total Bilirubin AST ALT Alkaline Phosphatase Total Protein Albumin Triglycerides Nasal MRSA (PCR) Quality VTE Prophylaxis VTE prophylaxis: pharmacologic ordered (Lovenox 40 mg subQ daily)
--- NOTE | 2024-11-27 11:43 | P.PNGS_ITS ---
Progress Note: A&P Assessment and Plan (1) Perforated abdominal viscus: Code(s): R19.8 - Other specified symptoms and signs involving the digestive system and abdomen Status: Acute Assessment and Plan: * Patient remains intubated and sedated, remains febrile but now low grade. * Off vasopressors, WBC improving * Continue IV Zosyn and micafungin, Vancomycin added for pneumonia * Continue TPN, trickle tube feeds to start today * Wound VAC in place and will be changed on Thursday (2) Septic shock: Code(s): A41.9 - Sepsis, unspecified organism; R65.21 - Severe sepsis with septic shock Status: Acute (3) Acute hypoxic respiratory failure: Code(s): J96.01 - Acute respiratory failure with hypoxia Status: Acute Assessment and Plan: * Vancomycin added for probably pneumonia seen on CT yesterday * Wean and extubate per CCP (4) Appendicitis: Qualifiers: Acute appendicitis type: with generalized peritonitis Appendicitis abscess presence: without abscess Appendicitis gangrene presence: with gangrene Appendicitis perforation presence: with perforation Appendicitis type: acute appendicitis Qualified Code(s): K35.201 - Acute appendicitis with generalized peritonitis, with perforation, without abscess Code(s): K37 - Unspecified appendicitis Status: Acute Subjective Subjective Date/Time Seen: 11/27/24 11:43 Interval history: Pneumonia seen on CT yesterday. Abdomen showed expected postop changes. Fevers slowly coming down. Respiratory status improving as well. No BM yet. Minimal NG output. Exam Const: Other: Remains intubated and sedated GI: Inspection: non-distended and incision (Wound VAC in place, no surrounding redness) GI Palp: Yes Soft to palpation and No Tenderness to palpation present (GI) Auscultation: normal bowel sounds Objective Data Vital Signs Vital Signs: Vital Signs - 24 hr 11/26/24 12:00 11/26/24 12:00 11/26/24 12:00 Temperature 101.3 F H Pulse Rate 83 Respiratory Rate 22 H Blood Pressure 126/76 Pulse Oximetry 93 94 Oxygen Delivery Mechanical Ventilation Fraction of Inspired Oxygen 60 60 11/26/24 12:00 11/26/24 12:00 11/26/24 12:00 Temperature Pulse Rate 80 80 82 Respiratory Rate 23 H 23 H Blood Pressure Pulse Oximetry Oxygen Delivery Fraction of Inspired Oxygen 11/26/24 14:00 11/26/24 14:00 11/26/24 14:00 Temperature 101 F H Pulse Rate 79 79 79 Respiratory Rate 22 H 22 H Blood Pressure 124/71 Pulse Oximetry 94 Oxygen Delivery Fraction of Inspired Oxygen 11/26/24 14:00 11/26/24 14:50 11/26/24 14:50 Temperature Pulse Rate 79 89 89 Respiratory Rate 22 H 22 H Blood Pressure Pulse Oximetry 95 Oxygen Delivery Mechanical Ventilation Fraction of Inspired Oxygen 60 11/26/24 14:56 11/26/24 16:00 11/26/24 16:00 Temperature Pulse Rate 90 90 90 Respiratory Rate 22 H 25 H 25 H Blood Pressure Pulse Oximetry Oxygen Delivery Fraction of Inspired Oxygen 11/26/24 16:00 11/26/24 16:00 11/26/24 16:00 Temperature 100.3 F H Pulse Rate 96 Respiratory Rate 23 H Blood Pressure 142/85 H Pulse Oximetry 95 95 Oxygen Delivery Mechanical Ventilation Fraction of Inspired Oxygen 55 55 11/26/24 16:00 11/26/24 18:00 11/26/24 18:00 Temperature 100 F H Pulse Rate 95 71 71 Respiratory Rate 21 H Blood Pressure 128/75 Pulse Oximetry 96 Oxygen Delivery Fraction of Inspired Oxygen 11/26/24 18:00 11/26/24 18:00 11/26/24 20:00 Temperature Pulse Rate 71 71 76 Respiratory Rate 20 21 H 20 Blood Pressure Pulse Oximetry Oxygen Delivery Fraction of Inspired Oxygen 11/26/24 20:00 11/26/24 20:00 11/26/24 20:00 Temperature 100.2 F H Pulse Rate 76 76 Respiratory Rate 20 20 Blood Pressure 139/79 Pulse Oximetry 95 Oxygen Delivery Fraction of Inspired Oxygen 55 11/26/24 20:00 11/26/24 20:00 11/26/24 20:02 Temperature Pulse Rate 76 65 Respiratory Rate 22 H Blood Pressure Pulse Oximetry 95 Oxygen Delivery Mechanical Ventilation Fraction of Inspired Oxygen 55 11/26/24 20:03 11/26/24 22:00 11/26/24 22:00 Temperature Pulse Rate 65 82 82 Respiratory Rate 20 20 Blood Pressure Pulse Oximetry 95 Oxygen Delivery Mechanical Ventilation Fraction of Inspired Oxygen 55 11/26/24 22:00 11/26/24 22:00 11/26/24 22:27 Temperature 100.3 F H Pulse Rate 78 78 84 Respiratory Rate 13 Blood Pressure 138/73 Pulse Oximetry 94 97 Oxygen Delivery Mechanical Ventilation Fraction of Inspired Oxygen 55 11/26/24 22:37 11/26/24 23:18 11/26/24 23:28 Temperature Pulse Rate 88 103 H 90 Respiratory Rate 20 20 Blood Pressure Pulse Oximetry 96 Oxygen Delivery Mechanical Ventilation Fraction of Inspired Oxygen 55 11/26/24 23:54 11/27/24 00:00 11/27/24 00:00 Temperature Pulse Rate 79 82 Respiratory Rate 20 20 Blood Pressure Pulse Oximetry Oxygen Delivery Fraction of Inspired Oxygen 55 11/27/24 00:00 11/27/24 00:00 11/27/24 00:00 Temperature 100.4 F H Pulse Rate 79 80 Respiratory Rate 22 H Blood Pressure 132/109 H Pulse Oximetry 96 96 Oxygen Delivery Mechanical Ventilation Fraction of Inspired Oxygen 55 11/27/24 00:13 11/27/24 01:42 11/27/24 01:45 Temperature Pulse Rate 87 64 66 Respiratory Rate 20 20 Blood Pressure Pulse Oximetry 96 Oxygen Delivery Mechanical Ventilation Fraction of Inspired Oxygen 55 11/27/24 02:00 11/27/24 02:00 11/27/24 02:00 Temperature 100.5 F H Pulse Rate 68 68 68 Respiratory Rate 21 H 20 20 Blood Pressure 126/73 Pulse Oximetry 96 Oxygen Delivery Fraction of Inspired Oxygen 11/27/24 02:00 11/27/24 04:00 11/27/24 04:00 Temperature 100.3 F H Pulse Rate 75 65 65 Respiratory Rate 20 20 Blood Pressure 125/70 Pulse Oximetry 96 Oxygen Delivery Fraction of Inspired Oxygen 11/27/24 04:00 11/27/24 04:00 11/27/24 04:00 Temperature Pulse Rate 65 66 Respiratory Rate 20 Blood Pressure Pulse Oximetry 96 Oxygen Delivery Mechanical Ventilation Fraction of Inspired Oxygen 55 11/27/24 04:00 11/27/24 04:25 11/27/24 06:00 Temperature 100.1 F H Pulse Rate 74 80 Respiratory Rate 20 Blood Pressure 146/78 H Pulse Oximetry 96 96 Oxygen Delivery Mechanical Ventilation Fraction of Inspired Oxygen 55 55 11/27/24 06:00 11/27/24 06:00 11/27/24 06:00 Temperature Pulse Rate 80 80 68 Respiratory Rate 20 20 Blood Pressure Pulse Oximetry Oxygen Delivery Fraction of Inspired Oxygen 11/27/24 06:38 11/27/24 06:38 11/27/24 08:00 Temperature Pulse Rate 76 76 70 Respiratory Rate 20 20 20 Blood Pressure Pulse Oximetry Oxygen Delivery Fraction of Inspired Oxygen 11/27/24 08:00 11/27/24 08:00 11/27/24 08:00 Temperature 100.1 F H Pulse Rate 70 77 Respiratory Rate 20 20 Blood Pressure 144/86 H Pulse Oximetry 95 Oxygen Delivery Fraction of Inspired Oxygen 50 11/27/24 08:00 11/27/24 08:00 11/27/24 08:19 Temperature Pulse Rate 61 62 Respiratory Rate 20 Blood Pressure Pulse Oximetry 98 Oxygen Delivery Mechanical Ventilation Fraction of Inspired Oxygen 50 11/27/24 08:21 11/27/24 08:31 11/27/24 10:00 Temperature 100.4 F H Pulse Rate 63 63 72 Respiratory Rate 18 18 Blood Pressure 148/81 H Pulse Oximetry 98 97 Oxygen Delivery Mechanical Ventilation Fraction of Inspired Oxygen 55 11/27/24 10:00 11/27/24 10:00 11/27/24 10:00 Temperature Pulse Rate 70 70 70 Respiratory Rate 18 18 Blood Pressure Pulse Oximetry Oxygen Delivery Fraction of Inspired Oxygen 11/27/24 11:11 Temperature Pulse Rate 73 Respiratory Rate Blood Pressure Pulse Oximetry 97 Oxygen Delivery Mechanical Ventilation Fraction of Inspired Oxygen 50 Intake/Output Intake/Output: Intake & Output 11/24/24 11/25/24 11/26/24 11/27/24 23:59 23:59 23:59 23:59 Intake Total 3160.6 2905.3 2657.2 1083.3 Output Total 1700 1770 3295 1200 Balance 1460.6 1135.3 -637.8 -116.7 Meds/Results Medications: Active Medications Generic Name Dose Route Start Last Admin Trade Name Freq PRN Reason Stop Dose Admin Dextrose 12.5 gm 11/24/24 08:03 Dextrose 50% 25 Gm/50 Ml Syringe IV PUSH PRN PRN Hypoglycemia Protocol Enoxaparin Sodium 40 mg 11/21/24 09:00 11/27/24 08:54 Enoxaparin 40 Mg/0.4 Ml Syringe SUB-Q 40 mg DAILY TAMICA Administration Glucagon 1 mg 11/24/24 08:03 Glucagon For Inj 1 Mg Vial IM PRN PRN Hypoglycemia Protocol Glucose 15 gm 11/24/24 08:03 Glucose Oral Gel 15 Gm Of Glucse In 37.5 Gm Tube PO PRN PRN Hypoglycemia Protocol Hydrocortisone Sodium Succinate 50 mg 11/26/24 18:00 11/27/24 06:31 Hydrocortisone Sodium Succinate 100 Mg/2 Ml Vial IV PUSH 11/28/24 06:01 50 mg Q12H TAMICA Administration Fentanyl Citrate 2,500 mcg in 250 mls @ 12.5 mls/hr 11/23/24 14:05 11/27/24 10:00 Fentanyl 2,500 Mcg/Ns 250 Ml IV CONT 150 mcg/hr .Q20H TAMICA 15 mls/hr Titration Protocol 125 MCG/HR Midazolam HCl 100 mg in 100 mls @ 6 mls/hr 11/23/24 21:45 11/27/24 10:00 Versed 100 Mg/Ns 100 Ml IV CONT 7 mg/hr .[id number] TAMICA 7 mls/hr Titration Protocol 6 MG/HR Micafungin Sodium 100 mg/ 100 mls @ 100 mls/hr 11/24/24 09:00 11/27/24 08:57 Sodium Chloride IVPB 100 mls/hr DAILY TAMICA Administration Dextrose 1,000 mls @ 100 mls/hr 11/24/24 08:03 Dextrose 5% 1,000 Ml IVPB PRN PRN Hypoglycemia Protocol Multivitamins 1.25 ml/ 1,002.5 mls @ 40 mls/hr 11/25/24 15:00 11/26/24 16:12 Multivitamins 1.25 ml/ Amino IV CONT 40 mls/hr Acids/Dextrose .Q24H TAMICA Administration Protocol Dextrose 1,000 mls @ 50 mls/hr 11/25/24 14:02 Dextrose 10% IV CONT .Q20H PRN if PN is interrupted Fat Emulsion Intravenous 250 mls @ 20.833 mls/hr 11/25/24 15:00 11/27/24 03:58 Lipids 20% IVPB Infused Q24H TAMICA Infusion Meropenem 1 gm/ Sodium 100 mls @ 200 mls/hr 11/26/24 15:00 11/27/24 07:11 Chloride IVPB Infused Q8H T[facility]ICA Infusion Vancomycin HCl 1,500 mg in 500 mls @ 250 mls/hr 11/27/24 04:00 11/27/24 06:34 Vancomycin 1,500 Mg/Ns 500 Ml IVPB Infused Q12H T[facility]ICA Infusion Potassium Chloride 100 mls @ 25 mls/hr 11/27/24 07:58 11/27/24 08:57 Kcl 40 Meq/Water 100 Ml IVPB 11/27/24 11:57 25 mls/hr ONCE ONE Administration Insulin Aspart 3 - 6 units 11/24/24 09:00 11/27/24 08:56 Insulin Aspart (*Bkc) 100 Units/Ml SUB-Q Not Given Q4H [facility] Protocol Insulin Glargine 16 units 11/26/24 09:00 11/27/24 08:55 Insulin Glargine (*Bkc) 100 Units/Ml SUB-Q 16 units DAILY TAMICA Administration Ipratropium [place] 0.5 mg 11/23/24 14:00 11/27/24 08:19 Ipratropium Br 0.02% Inh Soln 0.5 Mg/2.5 Ml Vial INHALATION 0.5 mg Q6HRT TAMICA Administration Levalbuterol HCl 0.63 mg 11/23/24 14:00 11/27/24 08:19 Levalbuterol Neb 1.25 Mg/3 Ml INHALATION 0.63 mg Q6HRT TAMICA Administration Midazolam HCl 2 mg 11/23/24 21:45 Midazolam Hcl (*Crx) 2 Mg/2 Ml Vial IV PUSH Q5M PRN ventilator asynchrony Multi-Ingred Cream/Lotion/Oil/Oint 1 applic 11/23/24 21:00 11/27/24 08:58 Mineral Oil/White Petrolatum Ointment EACH EYE 1 applic Q12HR TAMICA Administration Pantoprazole Sodium 40 mg 11/24/24 09:00 11/27/24 08:54 Pantoprazole Sodium Iv 40 Mg Vial IV PUSH 40 mg QAM TAMICA Administration Sodium Chloride 10 ml 11/23/24 14:00 11/27/24 06:33 Central Line Flush IV PUSH 10 ml Q8HR TAMICA Administration Sodium Chloride 10 ml 11/23/24 13:39 Central Line Flush IV PUSH PRN PRN with TPN bag changes Sodium Chloride 20 ml 11/23/24 13:39 Central Line Flush IV PUSH PRN PRN after blood draws Radiology Results: ITS Impressions Chest CTA 11/23/24 05:53 IMPRESSION: 1. Free intraperitoneal air in the upper abdomen. Correlate for recent surgery. In the absence of known surgery this is most likely secondary to bowel perforation. Clinically correlate. 2: No large central pulmonary embolism. Limited evaluation of the secondary and tertiary pulmonary arteries. 3: Small right pleural effusion. Dependent atelectasis. 4: Ascites. Abdomen/Pelvis CT 11/23/24 13:00 IMPRESSION: 1. Increasing free intraperitoneal air 11/22/2024, suspicious for bowel leak. Increasing fluid in the mesentery with ascites involving the perihepatic space. No discrete abscess identified. Consider correlation with contrast-enhanced CT abdomen. 2: Increasing consolidation of the lower lobes which may represent atelectasis or pneumonia. 3: Developing small pleural effusions. Abdomen X-Ray 11/23/24 14:04 IMPRESSION: 1: NG tube tip in the stomach. 2: Bibasilar airspace disease, edema versus pneumonia. Head CT 11/26/24 14:47 Impression: No acute intracranial hemorrhage or suspicious mass effect. Chest/Abdomen/Pelvis CTA 11/26/24 14:58 IMPRESSION: No pulmonary embolus. No aortic dissection. Small bilateral pleural effusions, right greater than left with adjacent consolidation, an interval change from prior. Gallbladder distention with mural thickening and surrounding inflammatory change. Right middle and lower lobe nodules, for which follow-up may be performed once patient is beyond this acute phase. No discrete intraperitoneal air is appreciated. Simple free fluid within the dependent portions of the abdomen. Venous Doppler Study 11/26/24 15:27 IMPRESSION: 1. No deep venous thrombosis within the bilateral lower extremities, as detailed above. Chest X-Ray 11/27/24 07:01 IMPRESSION: Bilateral pleural effusions. Adjacent compressive consolidation as detected on CT examination. Supportive lines and tubes in good position. Labs Labs: Laboratory Results - last 24 hr 11/26/24 11/26/24 11/26/24 11:53 15:02 15:53 WBC RBC Hgb Hct MCV MCH MCHC RDW Plt Count MPV Immature Gran % (Auto) Neut % (Auto) Lymph % (Auto) [place] % (Auto) Eos % (Auto) Baso % (Auto) Lymph # (Auto) [place] # (Auto) Eos # (Auto) Baso # (Auto) Abs Immat Gran (auto) Absolute Neuts (auto) Absolute Nucleated RBC Nucleated RBC % Puncture Site ABG pH ABG pCO2 ABG pO2 ABG PO2/FiO2 Ratio ABG HCO3 ABG O2 Saturation ABG O2 Content ABG Base Excess A-a Gradient Oxyhemoglobin Carboxyhemoglobin Methemoglobin Reduced Hemoglobin Total Hemoglobin O2 Delivery Device O2 Liters/Min Minute Volume FiO2 Peak Inspir Pressure Pressure Support Sodium Potassium Chloride Carbon Dioxide Anion Gap BUN Creatinine Estim Creat Clear Calc Estimated GFR Glucose POC Capillary Glucose 273 H 216 H Calcium Phosphorus Magnesium Total Bilirubin AST ALT Alkaline Phosphatase Total Protein Albumin Triglycerides 359 H Nasal MRSA (PCR) 11/26/24 11/26/24 11/26/24 18:09 19:55 23:57 WBC RBC Hgb Hct MCV MCH MCHC RDW Plt Count MPV Immature Gran % (Auto) Neut % (Auto) Lymph % (Auto) [place] % (Auto) Eos % (Auto) Baso % (Auto) Lymph # (Auto) [place] # (Auto) Eos # (Auto) Baso # (Auto) Abs Immat Gran (auto) Absolute Neuts (auto) Absolute Nucleated RBC Nucleated RBC % Puncture Site ABG pH ABG pCO2 ABG pO2 ABG PO2/FiO2 Ratio ABG HCO3 ABG O2 Saturation ABG O2 Content ABG Base Excess A-a Gradient Oxyhemoglobin Carboxyhemoglobin Methemoglobin Reduced Hemoglobin Total Hemoglobin O2 Delivery Device O2 Liters/Min Minute Volume FiO2 Peak Inspir Pressure Pressure Support Sodium Potassium Chloride Carbon Dioxide Anion Gap BUN Creatinine Estim Creat Clear Calc Estimated GFR Glucose POC Capillary Glucose 198 H 221 H Calcium Phosphorus Magnesium Total Bilirubin AST ALT Alkaline Phosphatase Total Protein Albumin Triglycerides Nasal MRSA (PCR) Not detected 11/27/24 11/27/24 11/27/24 04:33 04:44 05:56 WBC 15.9 H RBC 2.98 L Hgb 9.6 L Hct 29.9 L MCV 100.3 H MCH 32.2 MCHC 32.1 RDW 14.0 Plt Count 169 MPV 9.8 Immature Gran % (Auto) 7.4 H Neut % (Auto) 77.0 H Lymph % (Auto) 10.8 L Weak[place] % (Auto) 4.3 Eos % (Auto) 0.1 Baso % (Auto) 0.4 Lymph # (Auto) 1.72 Weak[place] # (Auto) 0.7 H Eos # (Auto) 0.0 Baso # (Auto) 0.1 Abs Immat Gran (auto) 1.18 H Absolute Neuts (auto) 12.3 H Absolute Nucleated RBC 0.030 H Nucleated RBC % 0.2 Puncture Site Left radial ABG pH 7.466 H ABG pCO2 42.2 ABG pO2 120.0 H ABG PO2/FiO2 Ratio 2.18 ABG HCO3 29.7 H ABG O2 Saturation 98.5 ABG O2 Content 14.6 L ABG Base Excess 5.5 A-a Gradient 225.2 Oxyhemoglobin 97.7 Carboxyhemoglobin 0.3 Methemoglobin 0.3 Reduced Hemoglobin 1.7 Total Hemoglobin 10.5 L O2 Delivery Device Ventilator O2 Liters/Min Not Reportable Minute Volume Not Reportable FiO2 55 Peak Inspir Pressure Not Reportable Pressure Support Not Reportable Sodium 141 Potassium 3.4 Chloride 107 Carbon Dioxide 30 Anion Gap 4 BUN 33 H Creatinine 0.87 Estim Creat Clear Calc 109 Estimated GFR > 60 Glucose 203 H POC Capillary Glucose 204 H 190 H Calcium 8.2 L Phosphorus 2.7 Magnesium 2.7 H Total Bilirubin 1.3 AST 53 ALT 39 Alkaline Phosphatase 93 Total Protein 5.4 L Albumin 2.5 L Triglycerides Nasal MRSA (PCR) 11/27/24 08:45 WBC RBC Hgb Hct MCV MCH MCHC RDW Plt Count MPV Immature Gran % (Auto) Neut % (Auto) Lymph % (Auto) [place] % (Auto) Eos % (Auto) Baso % (Auto) Lymph # (Auto) [place] # (Auto) Eos # (Auto) Baso # (Auto) Abs Immat Gran (auto) Absolute Neuts (auto) Absolute Nucleated RBC Nucleated RBC % Puncture Site ABG pH ABG pCO2 ABG pO2 ABG PO2/FiO2 Ratio ABG HCO3 ABG O2 Saturation ABG O2 Content ABG Base Excess A-a Gradient Oxyhemoglobin Carboxyhemoglobin Methemoglobin Reduced Hemoglobin Total Hemoglobin O2 Delivery Device O2 Liters/Min Minute Volume FiO2 Peak Inspir Pressure Pressure Support Sodium Potassium Chloride Carbon Dioxide Anion Gap BUN Creatinine Estim Creat Clear Calc Estimated GFR Glucose POC Capillary Glucose 193 H Calcium Phosphorus Magnesium Total Bilirubin AST ALT Alkaline Phosphatase Total Protein Albumin Triglycerides Nasal MRSA (PCR)
[2024-11-27] MEDS: FENTANYL 2,500MCG/NS250ML(*CRX 2,500 MCG/250 ML BAG 12.5 MCG IV CONT (13:07)
[2024-11-27] MEDS: BUMETANIDE INJ 1 MG/4 ML VIAL IV PUSH ×2 (13:07→20:08)
[2024-11-27 14:04] LABS: Triglycerides 384 mg/dL (<150)
[2024-11-27] MEDS: FAT EMULSIONS IV 20% 250 ML 20.83 ML IVPB (15:20)
[2024-11-27] MEDS: AMINO ACIDS 5%/DEXTROSE 15% 1,000 ML with MULTIVITAMINS-12 INJ VIAL 1 1.25 ML, MULTIVIT... 40 ML IV CONT (15:21)
--- NOTE | 2024-11-27 15:40 | P.PNIM_ITS ---
Progress Note: A&P Assessment and Plan (1) Acute hypoxic respiratory failure: Code(s): J96.01 - Acute respiratory failure with hypoxia Status: Acute (2) Status post appendectomy: Onset Date: 11/20/24 Code(s): Z90.49 - Acquired absence of other specified parts of digestive tract Status: Acute (3) Tachycardia: Code(s): R00.0 - Tachycardia, unspecified Status: Acute (4) Low serum bicarbonate: Code(s): R79.89 - Other specified abnormal findings of blood chemistry Status: Acute (5) Hepatic steatosis: Code(s): K76.0 - Fatty (change of) liver, not elsewhere classified Status: Acute (6) Closed right fibular fracture: Qualifiers: Encounter type: subsequent encounter Code(s): S82.401A - Unspecified fracture of shaft of right fibula, initial encounter for closed fracture Status: Acute Plan patient was taken to OR and had emergent exploratory laparotomy, ileocolic resection, patient was transferred to IMU, when I saw the patient he was complaining of severe abdominal pain, I repeat CT scan of the abdomen without contrast and discuss the case with the Department Operations Manager Dr. Lugo, who examined the patient and transferred to patient to ICU for close observation and management. appreciate assistance of the railroad shop inspector and patient was intubated and remain on ventilator, patient has developed septic shock, febrile, blood culture no growth so far, he being weaned off Vasopressors, patient is being treated with Zosyn, and micafungin, patient clinical symptoms are not improving he is requiring increase peep to 12 and FIO2 of 70% patient is seen by railroad shop inspector, surgery service will monitor and follow. Subjective Date/time seen: 11/27/24 15:40 Interval history: H&P-Narrative Patient is a developed acute hypoxic respiratory failure of uncertain etiology. The patient did at have significant drop in his white count from previous and is now leukopenic instead of having leukocytosis. He remains afebrile. He has been on routine DVT prophylaxis postop with Lovenox. Noticed definite water server possible pulmonary embolism. Patient went for stat CT of the chest which was negative for any large vessel PE but more peripheral exam was limited due to contrast timing and motion artifact. The patient is still having right-sided chest pain and has had rapid increase in oxygen requirement up to 10 L nasal cannula. Patient still remains significantly tachypneic and is struggling to maintain oxygen saturations of 92% on [address] patient on Airvo. ABG demonstrated mild respiratory alkalosis. I had initially ordered a dose of Lasix due to crackles on exam but further laboratory findings demonstrated lactic acidosis in a low serum bicarb. The patient's mucous membranes are dry his lips are peeling. He appears more intervascular volume depleted despite nursing reporting that the patient has drinks 5-6 L of water a day or more and receiving IV fluid hydration. According to the cumulative fluid summary the patient is about 4.5 L positive for admission. Patient has remained on Zosyn since admission. CT of the abdomen pelvis demonstrated stable postoperative findings. It Is unclear if the patient is developing sepsis verses, possible ARDS, pulmonary edema seems less likely given lack of findings on imaging. Stat troponin has been ordered. Will repeat EKG. Will check cheetah score is see if patient is fluid responsive. And check echocardiogram to evaluate cardiac structure and function. Electrolyte panel did demonstrate mild hypokalemia. Will check magnesium level and replace if needed. Will give 40 mEq potassium chloride rider. Given poor contrast timing on CTA will obtain lower extremity Dopplers to rule out DVT. patient was taken to OR and had emergent exploratory laparotomy, ileocolic res ection, patient was transferred to IMU, when I saw the patient he was complaining of severe abdominal pain, I repeat CT scan of the abdomen without contrast and discuss the case with the Department Operations Manager Dr. Lugo, who examined the patient and transferred to patient to ICU for close observation and management. appreciate assistance of the railroad shop inspector and patient was intubated and remain on ventilator, patient has developed septic shock, febrile, blood culture no growth so far, he being weaned off Vasopressors, patient is being treated with Zosyn, and micafungin, patient clinical symptoms are not improving he is requiring increase peep to 12 and FIO2 of 70% patient is seen by railroad shop inspector, surgery service will monitor and follow. Review of Systems Review of Systems: ROS unobtainable: Yes unobtainable due to endotracheal tube Exam Narrative: Patient appears in pain Patient is comfortable, NAD HEENT: eyes are clear and none icteric LUNGS:CTA HEART: RR S1S2 ABD: BS+, distended and tender Lower extremities: no edema SKIN: nonjaundiced Neuro: grossly intact. Objective Data Vital Signs Vital Signs: Vital Signs - 24 hr 11/26/24 16:00 11/26/24 16:00 11/26/24 16:00 Temperature Pulse Rate 90 90 Respiratory Rate 25 H 25 H Blood Pressure Pulse Oximetry 95 Oxygen Delivery Mechanical Ventilation Fraction of Inspired Oxygen 55 11/26/24 16:00 11/26/24 16:00 11/26/24 16:00 Temperature 37.9 C H Pulse Rate 96 95 Respiratory Rate 23 H Blood Pressure 142/85 H Pulse Oximetry 95 Oxygen Delivery Fraction of Inspired Oxygen 55 11/26/24 18:00 11/26/24 18:00 11/26/24 18:00 Temperature 37.7 C H Pulse Rate 71 71 71 Respiratory Rate 21 H 20 Blood Pressure 128/75 Pulse Oximetry 96 Oxygen Delivery Fraction of Inspired Oxygen 11/26/24 18:00 11/26/24 20:00 11/26/24 20:00 Temperature Pulse Rate 71 76 76 Respiratory Rate 21 H 20 20 Blood Pressure Pulse Oximetry Oxygen Delivery Fraction of Inspired Oxygen 11/26/24 20:00 11/26/24 20:00 11/26/24 20:00 Temperature 37.9 C H Pulse Rate 76 76 Respiratory Rate 20 Blood Pressure 139/79 Pulse Oximetry 95 Oxygen Delivery Fraction of Inspired Oxygen 55 11/26/24 20:00 11/26/24 20:02 11/26/24 20:03 Temperature Pulse Rate 65 65 Respiratory Rate 22 H Blood Pressure Pulse Oximetry 95 95 Oxygen Delivery Mechanical Ventilation Mechanical Ventilation Fraction of Inspired Oxygen 55 55 11/26/24 22:00 11/26/24 22:00 11/26/24 22:00 Temperature Pulse Rate 82 82 78 Respiratory Rate 20 20 Blood Pressure Pulse Oximetry Oxygen Delivery Fraction of Inspired Oxygen 11/26/24 22:00 11/26/24 22:27 11/26/24 22:37 Temperature 37.9 C H Pulse Rate 78 84 88 Respiratory Rate 13 20 Blood Pressure 138/73 Pulse Oximetry 94 97 Oxygen Delivery Mechanical Ventilation Fraction of Inspired Oxygen 55 11/26/24 23:18 11/26/24 23:28 11/26/24 23:54 Temperature Pulse Rate 103 H 90 79 Respiratory Rate 20 20 Blood Pressure Pulse Oximetry 96 Oxygen Delivery Mechanical Ventilation Fraction of Inspired Oxygen 55 11/27/24 00:00 11/27/24 00:00 11/27/24 00:00 Temperature Pulse Rate 82 Respiratory Rate 20 Blood Pressure Pulse Oximetry 96 Oxygen Delivery Mechanical Ventilation Fraction of Inspired Oxygen 55 55 11/27/24 00:00 11/27/24 00:00 11/27/24 00:13 Temperature 38.0 C H Pulse Rate 79 80 87 Respiratory Rate 22 H 20 Blood Pressure 132/109 H Pulse Oximetry 96 Oxygen Delivery Fraction of Inspired Oxygen 11/27/24 01:42 11/27/24 01:45 11/27/24 02:00 Temperature 38.1 C H Pulse Rate 64 66 68 Respiratory Rate 20 21 H Blood Pressure 126/73 Pulse Oximetry 96 96 Oxygen Delivery Mechanical Ventilation Fraction of Inspired Oxygen 55 11/27/24 02:00 11/27/24 02:00 11/27/24 02:00 Temperature Pulse Rate 68 68 75 Respiratory Rate 20 20 Blood Pressure Pulse Oximetry Oxygen Delivery Fraction of Inspired Oxygen 11/27/24 04:00 11/27/24 04:00 11/27/24 04:00 Temperature 37.9 C H Pulse Rate 65 65 65 Respiratory Rate 20 20 20 Blood Pressure 125/70 Pulse Oximetry 96 Oxygen Delivery Fraction of Inspired Oxygen 11/27/24 04:00 11/27/24 04:00 11/27/24 04:00 Temperature Pulse Rate 66 Respiratory Rate Blood Pressure Pulse Oximetry 96 Oxygen Delivery Mechanical Ventilation Fraction of Inspired Oxygen 55 55 11/27/24 04:25 11/27/24 06:00 11/27/24 06:00 Temperature 37.8 C H Pulse Rate 74 80 80 Respiratory Rate 20 20 Blood Pressure 146/78 H Pulse Oximetry 96 96 Oxygen Delivery Mechanical Ventilation Fraction of Inspired Oxygen 55 11/27/24 06:00 11/27/24 06:00 11/27/24 06:38 Temperature Pulse Rate 80 68 76 Respiratory Rate 20 20 Blood Pressure Pulse Oximetry Oxygen Delivery Fraction of Inspired Oxygen 11/27/24 06:38 11/27/24 08:00 11/27/24 08:00 Temperature Pulse Rate 76 70 70 Respiratory Rate 20 20 20 Blood Pressure Pulse Oximetry Oxygen Delivery Fraction of Inspired Oxygen 11/27/24 08:00 11/27/24 08:00 11/27/24 08:00 Temperature 37.8 C H Pulse Rate 77 Respiratory Rate 20 Blood Pressure 144/86 H Pulse Oximetry 95 98 Oxygen Delivery Mechanical Ventilation Fraction of Inspired Oxygen 50 50 11/27/24 08:00 11/27/24 08:19 11/27/24 08:21 Temperature Pulse Rate 61 62 63 Respiratory Rate 20 Blood Pressure Pulse Oximetry 98 Oxygen Delivery Mechanical Ventilation Fraction of Inspired Oxygen 55 11/27/24 08:31 11/27/24 10:00 11/27/24 10:00 Temperature 38.0 C H Pulse Rate 63 72 70 Respiratory Rate 18 18 Blood Pressure 148/81 H Pulse Oximetry 97 Oxygen Delivery Fraction of Inspired Oxygen 11/27/24 10:00 11/27/24 10:00 11/27/24 11:11 Temperature Pulse Rate 70 70 73 Respiratory Rate 18 18 Blood Pressure Pulse Oximetry 97 Oxygen Delivery Mechanical Ventilation Fraction of Inspired Oxygen 50 11/27/24 12:00 11/27/24 12:00 11/27/24 12:00 Temperature 38.1 C H Pulse Rate 75 70 77 Respiratory Rate 19 18 18 Blood Pressure 151/85 H Pulse Oximetry 96 Oxygen Delivery Fraction of Inspired Oxygen 11/27/24 12:00 11/27/24 12:00 11/27/24 12:00 Temperature Pulse Rate 88 Respiratory Rate Blood Pressure Pulse Oximetry 96 Oxygen Delivery Mechanical Ventilation Fraction of Inspired Oxygen 50 50 11/27/24 12:44 11/27/24 13:07 11/27/24 13:07 Temperature Pulse Rate 75 75 Respiratory Rate 18 18 Blood Pressure Pulse Oximetry Oxygen Delivery Fraction of Inspired Oxygen 50 11/27/24 14:00 11/27/24 14:00 11/27/24 14:00 Temperature 38.0 C H Pulse Rate 68 68 68 Respiratory Rate 18 18 Blood Pressure 119/77 Pulse Oximetry 96 Oxygen Delivery Fraction of Inspired Oxygen 11/27/24 14:00 11/27/24 14:19 11/27/24 14:20 Temperature Pulse Rate 68 70 70 Respiratory Rate 18 19 Blood Pressure Pulse Oximetry 96 Oxygen Delivery Mechanical Ventilation Fraction of Inspired Oxygen 50 11/27/24 14:28 Temperature Pulse Rate 81 Respiratory Rate 20 Blood Pressure Pulse Oximetry Oxygen Delivery Fraction of Inspired Oxygen Intake/Output Intake/Output: Intake & Output 11/24/24 11/25/24 11/26/24 11/27/24 23:59 23:59 23:59 23:59 Intake Total 3160.6 2905.3 2657.2 2090.3 Output Total 1700 1770 3295 1200 Balance 1460.6 1135.3 -637.8 890.3 Meds/Results Medications: Active Medications Generic Name Dose Route Start Last Admin Trade Name Freq PRN Reason Stop Dose Admin Bumetanide 1 mg 11/27/24 21:00 Bumetanide Inj 1 Mg/4 Ml Vial IV PUSH 11/27/24 21:01 ONCE ONE Dextrose 12.5 gm 11/24/24 08:03 Dextrose 50% 25 Gm/50 Ml Syringe IV PUSH PRN PRN Hypoglycemia Protocol Enoxaparin Sodium 40 mg 11/21/24 09:00 11/27/24 08:54 Enoxaparin 40 Mg/0.4 Ml Syringe SUB-Q 40 mg DAILY TAMICA Administration Glucagon 1 mg 11/24/24 08:03 Glucagon For Inj 1 Mg Vial IM PRN PRN Hypoglycemia Protocol Glucose 15 gm 11/24/24 08:03 Glucose Oral Gel 15 Gm Of Glucse In 37.5 Gm Tube PO PRN PRN Hypoglycemia Protocol Hydrocortisone Sodium Succinate 50 mg 11/26/24 18:00 11/27/24 06:31 Hydrocortisone Sodium Succinate 100 Mg/2 Ml Vial IV PUSH 11/28/24 06:01 50 mg Q12H TAMICA Administration Fentanyl Citrate 2,500 mcg in 250 mls @ 12.5 mls/hr 11/23/24 14:05 11/27/24 14:00 Fentanyl 2,500 Mcg/Ns 250 Ml IV CONT 125 mcg/hr .Q20H TAMICA 12.5 mls/hr Titration Protocol 125 MCG/HR Midazolam HCl 100 mg in 100 mls @ 5 mls/hr 11/23/24 21:45 11/27/24 14:00 Versed 100 Mg/Ns 100 Ml IV CONT 5 mg/hr .Q20H TAMICA 5 mls/hr Titration Protocol 5 MG/HR Micafungin Sodium 100 mg/ 100 mls @ 100 mls/hr 11/24/24 09:00 11/27/24 08:57 Sodium Chloride IVPB 100 mls/hr DAILY TAMICA Administration Dextrose 1,000 mls @ 100 mls/hr 11/24/24 08:03 Dextrose 5% 1,000 Ml IVPB PRN PRN Hypoglycemia Protocol Multivitamins 1.25 ml/ 1,002.5 mls @ 40 mls/hr 11/25/24 15:00 11/27/24 15:21 Multivitamins 1.25 ml/ Amino IV CONT 40 mls/hr Acids/Dextrose .Q24H TAMICA Administration Protocol Dextrose 1,000 mls @ 50 mls/hr 11/25/24 14:02 Dextrose 10% IV CONT .Q20H PRN if PN is interrupted Fat Emulsion Intravenous 250 mls @ 20.833 mls/hr 11/25/24 15:00 11/27/24 15:20 Lipids 20% IVPB 20.83 mls/hr Q24H TAMICA Administration Meropenem 1 gm/ Sodium 100 mls @ 200 mls/hr 11/26/24 15:00 11/27/24 07:11 Chloride IVPB Infused Q8H TAMICA Infusion Vancomycin HCl 1,500 mg in 500 mls @ 250 mls/hr 11/27/24 04:00 11/27/24 06:34 Vancomycin 1,500 Mg/Ns 500 Ml IVPB Infused Q12H TAMICA Infusion Insulin Aspart 3 - 6 units 11/24/24 09:00 11/27/24 12:15 Insulin Aspart (*Bkc) 100 Units/Ml SUB-Q 3 units Q4H TAMICA Administration Protocol Insulin Glargine 16 units 11/26/24 09:00 11/27/24 08:55 Insulin Glargine (*Bkc) 100 Units/Ml SUB-Q 16 units DAILY TAMICA Administration Ipratropium [place] 0.5 mg 11/23/24 14:00 11/27/24 14:18 Ipratropium Br 0.02% Inh Soln 0.5 Mg/2.5 Ml Vial INHALATION 0.5 mg Q6HRT TAMICA Administration Levalbuterol HCl 0.63 mg 11/23/24 14:00 11/27/24 14:18 Levalbuterol Neb 1.25 Mg/3 Ml INHALATION 0.63 mg Q6HRT TAMICA Administration Midazolam HCl 2 mg 11/23/24 21:45 Midazolam Hcl (*Crx) 2 Mg/2 Ml Vial IV PUSH Q5M PRN ventilator asynchrony Multi-Ingred Cream/Lotion/Oil/Oint 1 applic 11/23/24 21:00 11/27/24 08:58 Mineral Oil/White Petrolatum Ointment EACH EYE 1 applic Q12HR TAMICA Administration Pantoprazole Sodium 40 mg 11/24/24 09:00 11/27/24 08:54 Pantoprazole Sodium Iv 40 Mg Vial IV PUSH 40 mg QAM TAMICA Administration Sodium Chloride 10 ml 11/23/24 14:00 11/27/24 13:08 Central Line Flush IV PUSH 10 ml Q8HR TAMICA Administration Sodium Chloride 10 ml 11/23/24 13:39 Central Line Flush IV PUSH PRN PRN with TPN bag changes Sodium Chloride 20 ml 11/23/24 13:39 Central Line Flush IV PUSH PRN PRN after blood draws Radiology Results: ITS Impressions Chest CTA 11/23/24 05:53 IMPRESSION: 1. Free intraperitoneal air in the upper abdomen. Correlate for recent surgery. In the absence of known surgery this is most likely secondary to bowel perforation. Clinically correlate. 2: No large central pulmonary embolism. Limited evaluation of the secondary and tertiary pulmonary arteries. 3: Small right pleural effusion. Dependent atelectasis. 4: Ascites. Abdomen/Pelvis CT 11/23/24 13:00 IMPRESSION: 1. Increasing free intraperitoneal air 11/22/2024, suspicious for bowel leak. Increasing fluid in the mesentery with ascites involving the perihepatic space. No discrete abscess identified. Consider correlation with contrast-enhanced CT abdomen. 2: Increasing consolidation of the lower lobes which may represent atelectasis or pneumonia. 3: Developing small pleural effusions. Abdomen X-Ray 11/23/24 14:04 IMPRESSION: 1: NG tube tip in the stomach. 2: Bibasilar airspace disease, edema versus pneumonia. Head CT 11/26/24 14:47 Impression: No acute intracranial hemorrhage or suspicious mass effect. Chest/Abdomen/Pelvis CTA 11/26/24 14:58 IMPRESSION: No pulmonary embolus. No aortic dissection. Small bilateral pleural effusions, right greater than left with adjacent consolidation, an interval change from prior. Gallbladder distention with mural thickening and surrounding inflammatory change. Right middle and lower lobe nodules, for which follow-up may be performed once patient is beyond this acute phase. No discrete intraperitoneal air is appreciated. Simple free fluid within the dependent portions of the abdomen. Venous Doppler Study 11/26/24 15:27 IMPRESSION: 1. No deep venous thrombosis within the bilateral lower extremities, as detailed above. Chest X-Ray 11/27/24 07:01 IMPRESSION: Bilateral pleural effusions. Adjacent compressive consolidation as detected on CT examination. Supportive lines and tubes in good position. Labs Labs: Laboratory Results - last 24 hr 11/26/24 11/26/24 11/26/24 15:53 18:09 19:55 WBC RBC Hgb Hct MCV MCH MCHC RDW Plt Count MPV Immature Gran % (Auto) Neut % (Auto) Lymph % (Auto) [place] % (Auto) Eos % (Auto) Baso % (Auto) Lymph # (Auto) [place] # (Auto) Eos # (Auto) Baso # (Auto) Abs Immat Gran (auto) Absolute Neuts (auto) Absolute Nucleated RBC Nucleated RBC % Puncture Site ABG pH ABG pCO2 ABG pO2 ABG PO2/FiO2 Ratio ABG HCO3 ABG O2 Saturation ABG O2 Content ABG Base Excess A-a Gradient Oxyhemoglobin Carboxyhemoglobin Methemoglobin Reduced Hemoglobin Total Hemoglobin O2 Delivery Device O2 Liters/Min Minute Volume FiO2 Peak Inspir Pressure Pressure Support Sodium Potassium Chloride Carbon Dioxide Anion Gap BUN Creatinine Estim Creat Clear Calc Estimated GFR Glucose POC Capillary Glucose 216 H 198 H Calcium Phosphorus Magnesium Total Bilirubin AST ALT Alkaline Phosphatase Total Protein Albumin Triglycerides Nasal MRSA (PCR) Not detected 11/26/24 11/27/24 11/27/24 23:57 04:33 04:44 WBC 15.9 H RBC 2.98 L Hgb 9.6 L Hct 29.9 L MCV 100.3 H MCH 32.2 MCHC 32.1 RDW 14.0 Plt Count 169 MPV 9.8 Immature Gran % (Auto) 7.4 H Neut % (Auto) 77.0 H Lymph % (Auto) 10.8 L [place] % (Auto) 4.3 Eos % (Auto) 0.1 Baso % (Auto) 0.4 Lymph # (Auto) 1.72 [place] # (Auto) 0.7 H Eos # (Auto) 0.0 Baso # (Auto) 0.1 Abs Immat Gran (auto) 1.18 H Absolute Neuts (auto) 12.3 H Absolute Nucleated RBC 0.030 H Nucleated RBC % 0.2 Puncture Site Left radial ABG pH 7.466 H ABG pCO2 42.2 ABG pO2 120.0 H ABG PO2/FiO2 Ratio 2.18 ABG HCO3 29.7 H ABG O2 Saturation 98.5 ABG O2 Content 14.6 L ABG Base Excess 5.5 A-a Gradient 225.2 Oxyhemoglobin 97.7 Carboxyhemoglobin 0.3 Methemoglobin 0.3 Reduced Hemoglobin 1.7 Total Hemoglobin 10.5 L O2 Delivery Device Ventilator O2 Liters/Min Not Reportable Minute Volume Not Reportable FiO2 55 Peak Inspir Pressure Not Reportable Pressure Support Not Reportable Sodium 141 Potassium 3.4 Chloride 107 Carbon Dioxide 30 Anion Gap 4 BUN 33 H Creatinine 0.87 Estim Creat Clear Calc 109 Estimated GFR > 60 Glucose 203 H POC Capillary Glucose 221 H 204 H Calcium 8.2 L Phosphorus 2.7 Magnesium 2.7 H Total Bilirubin 1.3 AST 53 ALT 39 Alkaline Phosphatase 93 Total Protein 5.4 L Albumin 2.5 L Triglycerides Nasal MRSA (PCR) 11/27/24 11/27/24 11/27/24 05:56 08:45 12:10 WBC RBC Hgb Hct MCV MCH MCHC RDW Plt Count MPV Immature Gran % (Auto) Neut % (Auto) Lymph % (Auto) [place] % (Auto) Eos % (Auto) Baso % (Auto) Lymph # (Auto) [place] # (Auto) Eos # (Auto) Baso # (Auto) Abs Immat Gran (auto) Absolute Neuts (auto) Absolute Nucleated RBC Nucleated RBC % Puncture Site ABG pH ABG pCO2 ABG pO2 ABG PO2/FiO2 Ratio ABG HCO3 ABG O2 Saturation ABG O2 Content ABG Base Excess A-a Gradient Oxyhemoglobin Carboxyhemoglobin Methemoglobin Reduced Hemoglobin Total Hemoglobin O2 Delivery Device O2 Liters/Min Minute Volume FiO2 Peak Inspir Pressure Pressure Support Sodium Potassium Chloride Carbon Dioxide Anion Gap BUN Creatinine Estim Creat Clear Calc Estimated GFR Glucose POC Capillary Glucose 190 H 193 H 209 H Calcium Phosphorus Magnesium Total Bilirubin AST ALT Alkaline Phosphatase Total Protein Albumin Triglycerides Nasal MRSA (PCR) 11/27/24 13:40 WBC RBC Hgb Hct MCV MCH MCHC RDW Plt Count MPV Immature Gran % (Auto) Neut % (Auto) Lymph % (Auto) [place] % (Auto) Eos % (Auto) Baso % (Auto) Lymph # (Auto) [place] # (Auto) Eos # (Auto) Baso # (Auto) Abs Immat Gran (auto) Absolute Neuts (auto) Absolute Nucleated RBC Nucleated RBC % Puncture Site ABG pH ABG pCO2 ABG pO2 ABG PO2/FiO2 Ratio ABG HCO3 ABG O2 Saturation ABG O2 Content ABG Base Excess A-a Gradient Oxyhemoglobin Carboxyhemoglobin Methemoglobin Reduced Hemoglobin Total Hemoglobin O2 Delivery Device O2 Liters/Min Minute Volume FiO2 Peak Inspir Pressure Pressure Support Sodium Potassium Chloride Carbon Dioxide Anion Gap BUN Creatinine Estim Creat Clear Calc Estimated GFR Glucose POC Capillary Glucose Calcium Phosphorus Magnesium Total Bilirubin AST ALT Alkaline Phosphatase Total Protein Albumin Triglycerides 384 H Nasal MRSA (PCR) Quality VTE Prophylaxis VTE prophylaxis: pharmacologic ordered (Lovenox 40 mg subQ daily)
[2024-11-28] VITALS (46 sets, daily range): BP systolic 116–151; BP diastolic 71–86; PULSE 49–83; RESP 12–29; TEMP 37.4–38.3; O2SAT 97–100
[2024-11-28] MEDS: IPRATROPIUM BR 0.02% INH SOLN 0.5 MG/2.5 ML VIAL INHALATION ×4 (01:54→20:15)
[2024-11-28 04:01] LABS: Hematocrit 31.2 % (42.0-52.0); Hemoglobin 9.9 g/dL (14.0-18.0); Immature Granulocyte Percent A 6.5 % (0-0.5); Lymphocytes Absolute Auto 1.55 K/mm3 (0.9-3.2); Mean Corpuscular HGB Conc 31.7 g/dl (32-36); Mean Corpuscular Hemoglobin 31.0 pg (26-34); Mean Corpuscular Volume 97.8 fl (80-100); Nucleated Red Blood Cells Absolute Auto 0.000 K/mm3 (0.0-0.012); Nucleated Red Blood Cells Perc 0.0 % (0.0-0.2); Platelet Count Result 196 k/mm3 (150-375); Red Blood Count 3.19 M/mm3 (4.6-6.20); White Blood Count 14.7 K/mm3 (4.5-10.0)
[2024-11-28 04:33] LABS: Alanine Aminotransferase 44 U/L (6-50); Albumin Level 2.5 g/dL (3.5-5.1); Alkaline Phosphatase 115 U/L (38-126); Anion Gap 7 mmol/L (4-12); Aspartate Amino Transferase 48 U/L (17-59); Bilirubin,Total 1.3 mg/dL (0.2-1.3); Blood Urea Nitrogen 29 mg/dL (9-20); Calcium 8.1 mg/dL (8.4-10.2); Carbon Dioxide 31 mmol/L (22-30); Chloride 108 mmol/L (98-107); Estimated CRCL calculation 121 ml/min; Estimated Glomerular Filt Rate > 60; Glucose 196 mg/dL (65-110); Magnesium 2.4 mg/dL (1.6-2.3); Potassium 3.0 mmol/L (3.4-5.0); Sodium 146 mmol/L (137-145); Total Protein 5.5 g/dL (6.3-8.2); Transferrin 129 mg/dL (206-381)
[2024-11-28 04:38] LABS: INR 1.1; Prothrombin Time 14.2 Seconds (11.1-14.7)
[2024-11-28 04:39] LABS: Partial Thromboplastin Time 24.6 Seconds (22.3-36.8)
[2024-11-28] MEDS: VANCOMYCIN 1,750 MG/NS 500 ML 1,750 MG/500 ML BAG 250 MG IVPB ×3 (04:57→21:40)
[2024-11-28] MEDS: HYDROCORTISONE SODIUM SUCCINATE 100 MG/2 ML VIAL 50 MG IV PUSH (04:58)
[2024-11-28 05:01] LABS: Alveolar/Arterial O2 Gradient 112.4 mmHg; Carboxyhemoglobin 0.1 % THb (0-2.0); Fractional Inspired Oxygen 35 %; HCO3 ABG 30.9 mEq/l (22.0-26.0); Methemoglobin ABG 0.0 %THb (0-1.5); Oxygen Content ABG 14.9 %vol (16.0-22.0); Oxygen Saturation ABG 97.1 % (95.0-100.0); PCO2 ABG 42.7 mmHg (35.0-45.0); PO2 ABG 87.5 mmHg (80.0-100.0); PO2 FiO2 Ratio Arterial Blood 2.50 %; Reduced Hemoglobin 3.7 %THb (0-5.0)
[2024-11-28] MEDS: CENTRAL LINE FLUSH 10 ML IV PUSH ×3 (05:02→21:40)
[2024-11-28 05:20] LABS: Modified Allen's Test Pass; Site Drawn LEFT RADIAL
[2024-11-28 05:21] LABS: Arterial Blood Gas Tidal Volume 450 ml; Arterial Blood Gas Ventilator rate 18 /MIN
[2024-11-28] MEDS: FENTANYL 2,500MCG/NS250ML(*CRX 2,500 MCG/250 ML BAG 12.5 MCG IV CONT (06:22)
[2024-11-28] MEDS: MEROPENEM 1 GM in SODIUM CHLORIDE 0.9% IV 100 ML 200 ML IVPB ×3 (06:30→22:11)
[2024-11-28] MEDS: PANTOPRAZOLE SODIUM IV 40 MG VIAL IV PUSH (08:42)
[2024-11-28] MEDS: ACETAMINOPHEN ELIXIR 325 MG/10.15 ML UDC 650 MG PO (08:42)
[2024-11-28] MEDS: dexmedeTOMIDine 400 MCG/100 ML 400 MCG/100 ML BAG 5.86 MCG IV CONT (08:44)
[2024-11-28] MEDS: POTASSIUM CHLORIDE 20 MEQ PACKET (FOR LIQUID) 40 MEQ FEED TUBE (08:44)
[2024-11-28] MEDS: ENOXAPARIN 40 MG/0.4 ML SYRINGE SUB-Q (08:45)
[2024-11-28] MEDS: INSULIN ASPART (*BKC) 100 UNITS/ML SUB-Q ×4 (08:45→18:58)
[2024-11-28] MEDS: MICAFUNGIN SODIUM 100 MG in SODIUM CHLORIDE 0.9% IV 100 ML IVPB (08:45)
[2024-11-28] MEDS: INSULIN GLARGINE (*BKC) 100 UNITS/ML 16 UNITS SUB-Q (08:46)
[2024-11-28] MEDS: MINERAL OIL/WHITE PETROLATUM OINTMENT 1 APPLIC EACH EYE ×2 (08:46→21:41)
[2024-11-28] MEDS: KCL 40 MEQ/WATER 100 ML 100 ML 25 ML IVPB (09:53)
--- NOTE | 2024-11-28 10:38 | PCFNICU ---
ICU Rounding Note: Pt current nutrition is Clinmix 5/15E @ 40 ml/h to provide 1182 kcal, 48 g protein, 1210 ml total volume. Vital AF 1.2 @ 20 ml/h for 528 kcal, 33 g protein, 357 ml total free water. Flush 30 ml q 4 h. Nutrition recommendation: Decrease TPN and continue to advance tube feeding to maintain gut motility. Per MD/surgery orders. End goal for Vital AF 1.2 @ 60 ml/h to provide 1584 kcal, 99 g protein, 1070 ml total free water. Last recorded weight is 117.1 kg. Bowel Motility: No bowel yet Labs Reviewed: Hg 9.9, Hct 31.2. Alb 2.5, Na 16, K+ 3.0, BUN 29, Glu 196, TRIG 384, Mag 2.4 Meds Noted: fentanyl, versed, precedex Skin: Wound vac to abdomen Additional Notes: Plan to decrease TPN and increase tube feeding per surgery. Plan to extubate today or tomorrow as tolerated. Following daily in ICU rounds. Will monitor weight, labs, skin, diet orders, meds every Thursday and Thursday. .
--- NOTE | 2024-11-28 11:52 | P.PNINT_ITS ---
Progress Note: A&P Assessment and Plan (1) DVT (deep venous thrombosis): Code(s): I82.409 - Acute embolism and thrombosis of unspecified deep veins of unspecified lower extremity Status: Acute Assessment and Plan: 11/28: Patient continues to have fevers, bilateral upper extremity venous Doppler with evidence of DVT of the right subclavian, axillary and brachial vein -discuss with surgery regarding therapeutic Lovenox to which the agreeable -11/28: Started patient on therapeutic Lovenox -right PICC line in place (2) Acute hypoxic respiratory failure: Code(s): J96.01 - Acute respiratory failure with hypoxia Status: Acute Assessment and Plan: Acute respiratory failure likely related to SIRS/sepsis -11/22: CTA chest: No large central PE, small right pleural effusion, dependent atelectasis, ascites, free intraperitoneal air in the upper abdomen correlate for some recent surgery -patient was initially placed on 10 L nasal cannula, now on high-flow therapy 60 L flow rate and 77% FiO2 -patient significantly tachypneic, breathing 40+ times a minute, with O2 side of 90-92% -11/23: Intubated in the ICU -chest x-ray and ABGs reviewed this morning, ventilator adjusted, increased PEEP to 12 and FiO2 to 70%, wean FiO2 to maintain O2 sats greater than 92% -continue bronchodilators -sedated with fentanyl and Versed infusion, maintain RASS of -2 for now -discontinued IV fluids -11/26:responded well to Bumex -11/27: Will diurese again today Have asked the bedside RN to place patient on Precedex, wean fentanyl and Versed to off, once he is awake, with place patient on SBT and evaluate for extubation (3) Septic shock: Code(s): A41.9 - Sepsis, unspecified organism; R65.21 - Severe sepsis with septic shock Status: Acute Assessment and Plan: Patient POD #3, tachypneic with hypoxic respiratory failure, lactic acidosis, increasing WBC count, anion gap metabolic acidosis -initial lactic acids were elevated on 11/24/2023 when patient was brought to the ICU, adequately fluid-resuscitated before patient was taken to the OR -likely related to SIRS/severe sepsis secondary to ruptured appendicitis -11/22: CT scan of the abdomen and pelvis this morning showed postop changes consider the since surgery likely appendectomy, no abscess identified. Small pleural effusion with dependent atelectasis -11/23: Repeat CT scan of the abdomen and pelvis without contrast showed increasing free intraperitoneal air suspicious for bowel leak. Increasing fluid in the mesentery with ascites involving the perihepatic space. No discrete abscess identified. Increasing consolidation of the lower lobes which may represent atelectasis or pneumonia. Developing small pleural effusions -discussed CT results with surgeon, - 11/23: Exploratory laparotomy with ileocolic resection for bowel perforation (cecal perforation) with spillage of bowel contents in the abdominal cavity -OFF ALL PRESSORS, maintain MAP > 65 mmHg or SBP> 100 mmHg -WEAN stress dose steroids - -11/24: Blood cultures negative x2 -11/24: Sputum cultures pending -11/24: Urine cultures no growth -lactic acid has resolved -continue Zosyn (11/20) and micafungin (11/24) 11/26: Patient has been febrile, Zosyn was discontinued, meropenem and vancomycin added due to consolidation in the right lung > left long as seen on CT scan as under 11/26: CT brain no acute intracranial hemorrhage or suspicious mass effect 11/26: Bilateral lower extremity venous Dopplers were negative for DVTs 11/28: Continues to be febrile despite being on meropenem, vancomycin and micafungin, 11/28: Bilateral upper venous Dopplers showed DVT of the right subclavian, axillary and brachial veins. (patient does have a right arm PICC line. Fevers possibly due to DVT and pneumonia 11/26/2024: CTA chest/abdomen/pelvis IMPRESSION: No pulmonary embolus. No aortic dissection. Small bilateral pleural effusions, right greater than left with adjacent consolidation, an interval change from prior. Gallbladder distention with mural thickening and surrounding inflammatory change. Right middle and lower lobe nodules, for which follow-up may be performed once patient is beyond this acute phase. No discrete intraperitoneal air is appreciated. Simple free fluid within the dependent portions of the abdomen. (4) Metabolic acidosis: Code(s): E87.20 - Acidosis, unspecified Status: Acute Assessment and Plan: RESOLVED Patient developed metabolic acidosis likely related to lactic acidosis - will give additional IV fluids secondary to severe sepsis -continue urine output, renal function, electrolyte -lactic acid is normal -urine output has been adequate, Normal creatinine for now (5) Status post appendectomy: Onset Date: 11/20/24 Code(s): Z90.49 - Acquired absence of other specified parts of digestive tract Status: Acute Assessment and Plan: 11/20: Discussed with surgery, NG tube will be inserted due to abdominal distension 11/23: Exploratory laparotomy with ileocolic resection for bowel perforation (cecal perforation) with spillage of bowel contents in the abdominal cavity 11/24: Wound VAC placed Treatment plans as above -pain control with fentanyl infusion -11/25: started on TPN after discussing with surgery 11/27: Discussed with surgery, will start trickle tube feeds, started 10 mL, increased to a goal of 20 mL Patient is tolerating trickle tube feeds, will discuss with surgery regarding increasing tube feed rate (6) Hyperglycemia: Code(s): R73.9 - Hyperglycemia, unspecified Status: Acute Assessment and Plan: Related to stress response and/or steroids -Accu-Cheks and sliding scale insulin -continue Lantus Plan DVT prophylaxis: Lovenox Stress ulcer prophylaxis: Protonix Nutrition: TPN, tolerating trickle tube feeds Code Status: Full code Critical Care Time Spent: 33 minutes Discussed with patient's sister GABRIELA Charles, updated her with patient's condition plan of care. I answered all her questions Due to a high probability of clinically significant, life threatening deterioration, the patient required my highest level of preparedness to intervene emergently and I personally spent this critical care time directly and personally managing the patient. This critical care time included obtaining a history; examining the patient; pulse oximetry; ordering and review of studies; arranging urgent treatment with development of a management plan; evaluation of patient's response to treatment; frequent reassessment; and discussions with other providers. It was exclusive of separately billable procedures and treating other patients and teaching time. Please see Assessment and Plan section and the rest of the note for further information on patient assessment and treatment This dictation may have been done utilizing a voice recognition system. Attempts have been made to correct errors. However, there may be uncorrected grammatical, spelling, and recognitions errors present. Subjective Date/time seen: 11/28/24 11:52 Interval history: Reason for consult: Acute hypoxic respiratory failure requiring intubation and mechanical ventilation, status post appendicectomy 11/22/2024, septic shock 11/23: Exploratory laparotomy with ileocolic resection for bowel perforation (cecal perforation) with spillage of bowel contents in the abdominal cavity 11/28/2024: Patient seen and examined the ICU, remains intubated on CMV mode of ventilation, peep of 10, 35% FiO2 with adequate O2 sats. Sedated with fentanyl and Versed infusion, patient does not open his eyes or follow simple commands, has been off all pressors. Urine output has been very good in response to diuresis. Patient 2878 8 mL negative fluid balance in the last 24 hours. Continues to be febrile with a T-max of 101.2?. Patient did tolerate trickle tube feeds, remains on TPN Review of Systems Review of Systems: ROS unobtainable: Yes unobtainable due to endotracheal tube, unobtainable due to medical condition and unobtainable due to mental status Exam Narrative: General: Intubated in singing in acute distress HEENT:? Pupils pinpoint and sluggish, sclera is clear Neck:? Supple Respiratory:? Coarse breath sounds bilaterally, decreased at bases, adequate air entry, no wheezing Cardiac:? S1-S2 is normal, normal sinus rhythm Abdomen:? Abdominal is soft, nondistended, midline incision with dressing in place, unable to hear any bowel sounds Extremities:palpable pedal pulses, warm extremities, edema improving, Neuro:? Intubated, sedated, opens his eyes but does not follow simple commands Skin:? Warm and dry Psych:? Unable to assess at this time Objective Data Vital Signs Vital Signs: Vital Signs - 24 hr 11/27/24 12:00 11/27/24 12:00 11/27/24 12:00 Temperature 100.5 F H Pulse Rate 75 70 77 Respiratory Rate 19 18 18 Blood Pressure 151/85 H Pulse Oximetry 96 Oxygen Delivery Fraction of Inspired Oxygen 11/27/24 12:00 11/27/24 12:00 11/27/24 12:00 Temperature Pulse Rate 88 Respiratory Rate Blood Pressure Pulse Oximetry 96 Oxygen Delivery Mechanical Ventilation Fraction of Inspired Oxygen 50 50 11/27/24 12:44 11/27/24 13:07 11/27/24 13:07 Temperature Pulse Rate 75 75 Respiratory Rate 18 18 Blood Pressure Pulse Oximetry Oxygen Delivery Fraction of Inspired Oxygen 50 11/27/24 14:00 11/27/24 14:00 11/27/24 14:00 Temperature 100.4 F H Pulse Rate 68 68 68 Respiratory Rate 18 18 Blood Pressure 119/77 Pulse Oximetry 96 Oxygen Delivery Fraction of Inspired Oxygen 11/27/24 14:00 11/27/24 14:19 11/27/24 14:20 Temperature Pulse Rate 68 70 70 Respiratory Rate 18 19 Blood Pressure Pulse Oximetry 96 Oxygen Delivery Mechanical Ventilation Fraction of Inspired Oxygen 45 11/27/24 14:28 11/27/24 16:00 11/27/24 16:00 Temperature Pulse Rate 81 72 Respiratory Rate 20 Blood Pressure Pulse Oximetry 97 Oxygen Delivery Mechanical Ventilation Fraction of Inspired Oxygen 45 11/27/24 16:00 11/27/24 16:00 11/27/24 16:00 Temperature 100.2 F H Pulse Rate 70 70 Respiratory Rate 19 19 Blood Pressure 111/66 Pulse Oximetry 98 Oxygen Delivery Fraction of Inspired Oxygen 45 11/27/24 16:00 11/27/24 17:05 11/27/24 17:10 Temperature Pulse Rate 70 73 Respiratory Rate 19 Blood Pressure Pulse Oximetry 98 Oxygen Delivery Mechanical Ventilation Fraction of Inspired Oxygen 40 40 11/27/24 18:00 11/27/24 18:00 11/27/24 18:00 Temperature 100.6 F H Pulse Rate 73 74 79 Respiratory Rate 20 20 Blood Pressure 134/80 Pulse Oximetry 98 Oxygen Delivery Fraction of Inspired Oxygen 11/27/24 18:00 11/27/24 20:00 11/27/24 20:00 Temperature 100.9 F H Pulse Rate 79 78 Respiratory Rate 20 18 Blood Pressure 147/79 H Pulse Oximetry 99 99 Oxygen Delivery Mechanical Ventilation Fraction of Inspired Oxygen 40 11/27/24 20:00 11/27/24 20:00 11/27/24 20:00 Temperature Pulse Rate 78 78 Respiratory Rate 18 18 Blood Pressure Pulse Oximetry Oxygen Delivery Fraction of Inspired Oxygen 40 11/27/24 20:00 11/27/24 21:24 11/27/24 21:24 Temperature Pulse Rate 76 81 78 Respiratory Rate 18 Blood Pressure Pulse Oximetry 97 Oxygen Delivery Mechanical Ventilation Fraction of Inspired Oxygen 40 11/27/24 21:34 11/27/24 22:00 11/27/24 22:00 Temperature 101.2 F H Pulse Rate 81 91 91 Respiratory Rate 18 21 H Blood Pressure 145/81 H Pulse Oximetry 97 Oxygen Delivery Fraction of Inspired Oxygen 11/27/24 22:00 11/27/24 22:00 11/27/24 23:00 Temperature Pulse Rate 91 91 87 Respiratory Rate 21 H 21 H 19 Blood Pressure Pulse Oximetry Oxygen Delivery Fraction of Inspired Oxygen 11/27/24 23:00 11/28/24 00:00 11/28/24 00:00 Temperature Pulse Rate 87 66 66 Respiratory Rate 19 24 H 24 H Blood Pressure Pulse Oximetry Oxygen Delivery Fraction of Inspired Oxygen 11/28/24 00:00 11/28/24 00:00 11/28/24 00:00 Temperature 101.0 F H Pulse Rate 66 Respiratory Rate 24 H Blood Pressure 133/79 Pulse Oximetry 97 97 Oxygen Delivery Mechanical Ventilation Fraction of Inspired Oxygen 40 40 11/28/24 00:00 11/28/24 00:28 11/28/24 01:54 Temperature Pulse Rate 66 73 81 Respiratory Rate 18 Blood Pressure Pulse Oximetry 99 Oxygen Delivery Mechanical Ventilation Fraction of Inspired Oxygen 40 11/28/24 02:00 11/28/24 02:00 11/28/24 02:00 Temperature 100.2 F H Pulse Rate 60 61 61 Respiratory Rate 19 19 Blood Pressure 125/76 Pulse Oximetry 98 Oxygen Delivery Fraction of Inspired Oxygen 11/28/24 02:00 11/28/24 02:00 11/28/24 02:04 Temperature Pulse Rate 61 81 Respiratory Rate 19 18 Blood Pressure Pulse Oximetry Oxygen Delivery Fraction of Inspired Oxygen 35 11/28/24 02:19 11/28/24 04:00 11/28/24 04:00 Temperature 99.8 F H Pulse Rate 59 L 75 Respiratory Rate 18 Blood Pressure 121/78 Pulse Oximetry 99 97 Oxygen Delivery Mechanical Ventilation Fraction of Inspired Oxygen 35 35 11/28/24 04:00 11/28/24 04:00 11/28/24 04:00 Temperature Pulse Rate 75 75 Respiratory Rate 18 18 Blood Pressure Pulse Oximetry 97 Oxygen Delivery Mechanical Ventilation Fraction of Inspired Oxygen 35 11/28/24 04:00 11/28/24 05:16 11/28/24 06:00 Temperature Pulse Rate 75 60 67 Respiratory Rate 18 Blood Pressure Pulse Oximetry 98 Oxygen Delivery Mechanical Ventilation Fraction of Inspired Oxygen 35 11/28/24 06:00 11/28/24 06:00 11/28/24 06:00 Temperature 100.1 F H Pulse Rate 67 67 67 Respiratory Rate 18 18 Blood Pressure 124/76 Pulse Oximetry 98 Oxygen Delivery Fraction of Inspired Oxygen 11/28/24 06:22 11/28/24 06:22 11/28/24 08:00 Temperature 100.7 F H Pulse Rate 70 70 72 Respiratory Rate 20 20 22 H Blood Pressure 134/82 Pulse Oximetry 98 Oxygen Delivery Fraction of Inspired Oxygen 11/28/24 08:00 11/28/24 08:00 11/28/24 08:00 Temperature Pulse Rate 62 75 Respiratory Rate 19 Blood Pressure Pulse Oximetry 98 Oxygen Delivery Mechanical Ventilation Fraction of Inspired Oxygen 35 35 11/28/24 08:25 11/28/24 08:38 11/28/24 08:38 Temperature Pulse Rate 73 83 83 Respiratory Rate 19 19 Blood Pressure Pulse Oximetry 99 Oxygen Delivery Mechanical Ventilation Fraction of Inspired Oxygen 35 11/28/24 08:42 11/28/24 08:44 11/28/24 09:08 Temperature 100.9 F H Pulse Rate 79 80 Respiratory Rate 19 12 Blood Pressure Pulse Oximetry Oxygen Delivery Fraction of Inspired Oxygen 11/28/24 09:08 11/28/24 09:55 11/28/24 10:00 Temperature 100.7 F H Pulse Rate 80 71 71 Respiratory Rate 15 20 21 H Blood Pressure 120/71 Pulse Oximetry 98 Oxygen Delivery Fraction of Inspired Oxygen 11/28/24 10:00 11/28/24 10:15 11/28/24 10:45 Temperature Pulse Rate 62 73 58 L Respiratory Rate 19 29 H Blood Pressure Pulse Oximetry Oxygen Delivery Fraction of Inspired Oxygen 11/28/24 10:56 11/28/24 11:00 11/28/24 11:03 Temperature Pulse Rate 59 L 58 L 61 Respiratory Rate 17 16 Blood Pressure Pulse Oximetry 98 Oxygen Delivery Mechanical Ventilation Fraction of Inspired Oxygen 35 11/28/24 11:41 Temperature Pulse Rate 56 L Respiratory Rate 18 Blood Pressure Pulse Oximetry Oxygen Delivery Fraction of Inspired Oxygen Intake/Output Intake/Output: Intake & Output 11/25/24 11/26/24 11/27/24 11/28/24 23:59 23:59 23:59 23:59 Intake Total 2905.3 2657.2 2707.3 1448.0 Output Total 1770 3295 4050 3000 Balance 1135.3 -637.8 -1342.7 -1552.0 Meds/Results Medications: Active Medications Generic Name Dose Route Start Last Admin Trade Name Freq PRN Reason Stop Dose Admin Acetaminophen 650 mg 11/28/24 07:42 11/28/24 08:42 Acetaminophen Elixir 325 Mg/10.15 Ml Udc PO 650 mg Q4H PRN Administration Mild Pain (1-3) or Fever Dextrose 12.5 gm 11/24/24 08:03 Dextrose 50% 25 Gm/50 Ml Syringe IV PUSH PRN PRN Hypoglycemia Protocol Enoxaparin Sodium 115 mg 11/28/24 21:00 Enoxaparin 1 Mg/Kg SUB-Q Q12HR TAMICA Enoxaparin Sodium 75 mg 11/28/24 11:34 Enoxaparin 60 Mg/0.6 Ml Syringe SUB-Q 11/28/24 11:35 ONCE ONE Glucagon 1 mg 11/24/24 08:03 Glucagon For Inj 1 Mg Vial IM PRN PRN Hypoglycemia Protocol Glucose 15 gm 11/24/24 08:03 Glucose Oral Gel 15 Gm Of Glucse In 37.5 Gm Tube PO PRN PRN Hypoglycemia Protocol Fentanyl Citrate 2,500 mcg in 250 mls @ 10 mls/hr 11/23/24 14:05 11/28/24 11:41 Fentanyl 2,500 Mcg/Ns 250 Ml IV CONT 100 mcg/hr .Q25H TAMICA 10 mls/hr Titration Protocol 100 MCG/HR Midazolam HCl 100 mg in 100 mls @ 4 mls/hr 11/23/24 21:45 11/28/24 11:03 Versed 100 Mg/Ns 100 Ml IV CONT 4 mg/hr .Q25H TAMICA 4 mls/hr Titration Protocol 4 MG/HR Micafungin Sodium 100 mg/ 100 mls @ 100 mls/hr 11/24/24 09:00 11/28/24 08:45 Sodium Chloride IVPB 12/01/24 08:59 100 mls/hr DAILY TAMICA Administration Dextrose 1,000 mls @ 100 mls/hr 11/24/24 08:03 Dextrose 5% 1,000 Ml IVPB PRN PRN Hypoglycemia Protocol Multivitamins 1.25 ml/ 1,002.5 mls @ 40 mls/hr 11/25/24 15:00 11/27/24 15:21 Multivitamins 1.25 ml/ Amino IV CONT 40 mls/hr Acids/Dextrose .Q24H TAMICA Administration Protocol Dextrose 1,000 mls @ 50 mls/hr 11/25/24 14:02 Dextrose 10% IV CONT .Q20H PRN if PN is interrupted Fat Emulsion Intravenous 250 mls @ 20.833 mls/hr 11/25/24 15:00 11/28/24 03:21 Lipids 20% IVPB Infused Q24H TAMICA Infusion Meropenem 1 gm/ Sodium 100 mls @ 200 mls/hr 11/26/24 15:00 11/28/24 07:00 Chloride IVPB Infused Q8H TAMICA Infusion Vancomycin HCl 1,750 mg in 500 mls @ 250 mls/hr 11/28/24 05:00 11/28/24 06:57 Vancomycin 1,750 Mg/Ns 500 Ml IVPB Infused Q8H TAMICA Infusion Potassium Chloride 100 mls @ 25 mls/hr 11/28/24 08:00 11/28/24 09:53 Kcl 40 Meq/Water 100 Ml IVPB 11/28/24 11:59 25 mls/hr ONCE ONE Administration Dexmedetomidine HCl 400 mcg in 100 mls @ 23.42 mls/hr 11/28/24 08:20 11/28/24 10:45 Precedex 400 Mcg/100 Ml IV CONT 0.8 mcg/kg/hr .Q4H17M TAMICA 23.42 mls/hr Titration Protocol 0.8 MCG/KG/HR Insulin Aspart 3 - 6 units 11/24/24 09:00 11/28/24 08:45 Insulin Aspart (*Bkc) 100 Units/Ml SUB-Q 3 units Q4H TAMICA Administration Protocol Insulin Glargine 16 units 11/26/24 09:00 11/28/24 08:46 Insulin Glargine (*Bkc) 100 Units/Ml SUB-Q 16 units DAILY TAMICA Administration Ipratropium Colman 0.5 mg 11/23/24 14:00 11/28/24 08:18 Ipratropium Br 0.02% Inh Soln 0.5 Mg/2.5 Ml Vial INHALATION 0.5 mg Q6HRT TAMICA Administration Levalbuterol HCl 0.63 mg 11/23/24 14:00 11/28/24 08:19 Levalbuterol Neb 1.25 Mg/3 Ml INHALATION 0.63 mg Q6HRT TAMICA Administration Midazolam HCl 2 mg 11/23/24 21:45 Midazolam Hcl (*Crx) 2 Mg/2 Ml Vial IV PUSH Q5M PRN ventilator asynchrony Multi-Ingred Cream/Lotion/Oil/Oint 1 applic 11/23/24 21:00 11/28/24 08:46 Mineral Oil/White Petrolatum Ointment EACH EYE 1 applic Q12HR TAMICA Administration Pantoprazole Sodium 40 mg 11/24/24 09:00 11/28/24 08:42 Pantoprazole Sodium Iv 40 Mg Vial IV PUSH 40 mg QAM TAMICA Administration Sodium Chloride 10 ml 11/23/24 14:00 11/28/24 05:02 Central Line Flush IV PUSH 10 ml Q8HR TAMICA Administration Sodium Chloride 10 ml 11/23/24 13:39 Central Line Flush IV PUSH PRN PRN with TPN bag changes Sodium Chloride 20 ml 11/23/24 13:39 Central Line Flush IV PUSH PRN PRN after blood draws Radiology Results: ITS Impressions Chest CTA 11/23/24 05:53 IMPRESSION: 1. Free intraperitoneal air in the upper abdomen. Correlate for recent surgery. In the absence of known surgery this is most likely secondary to bowel perforation. Clinically correlate. 2: No large central pulmonary embolism. Limited evaluation of the secondary and tertiary pulmonary arteries. 3: Small right pleural effusion. Dependent atelectasis. 4: Ascites. Abdomen/Pelvis CT 11/23/24 13:00 IMPRESSION: 1. Increasing free intraperitoneal air 11/22/2024, suspicious for bowel leak. Increasing fluid in the mesentery with ascites involving the perihepatic space. No discrete abscess identified. Consider correlation with contrast-enhanced CT abdomen. 2: Increasing consolidation of the lower lobes which may represent atelectasis or pneumonia. 3: Developing small pleural effusions. Abdomen X-Ray 11/23/24 14:04 IMPRESSION: 1: NG tube tip in the stomach. 2: Bibasilar airspace disease, edema versus pneumonia. Head CT 11/26/24 14:47 Impression: No acute intracranial hemorrhage or suspicious mass effect. Chest/Abdomen/Pelvis CTA 11/26/24 14:58 IMPRESSION: No pulmonary embolus. No aortic dissection. Small bilateral pleural effusions, right greater than left with adjacent consolidation, an interval change from prior. Gallbladder distention with mural thickening and surrounding inflammatory change. Right middle and lower lobe nodules, for which follow-up may be performed once patient is beyond this acute phase. No discrete intraperitoneal air is appreciated. Simple free fluid within the dependent portions of the abdomen. Chest X-Ray 11/28/24 07:17 Impression: 1: Persistent bibasilar airspace disease may represent pneumonia and/or atelectasis. Venous Doppler Study 11/28/24 11:19 IMPRESSION: 1. Deep venous thrombosis of the right subclavian, axillary and brachial veins. Dr. Kam Gongora discussed with the proof clerkLarrybrandon Castaneda at 11/28/2024 11:23 CDT. Labs Labs: Laboratory Results - last 24 hr 11/27/24 11/27/24 11/27/24 12:10 13:40 16:58 WBC RBC Hgb Hct MCV MCH MCHC RDW Plt Count MPV Immature Gran % (Auto) Neut % (Auto) Lymph % (Auto) [place] % (Auto) Eos % (Auto) Baso % (Auto) Lymph # (Auto) [place] # (Auto) Eos # (Auto) Baso # (Auto) Abs Immat Gran (auto) Absolute Neuts (auto) Absolute Nucleated RBC Nucleated RBC % PT INR APTT Puncture Site ABG pH ABG pCO2 ABG pO2 ABG PO2/FiO2 Ratio ABG HCO3 ABG O2 Saturation ABG O2 Content ABG Base Excess A-a Gradient Oxyhemoglobin Carboxyhemoglobin Methemoglobin Reduced Hemoglobin Total Hemoglobin O2 Delivery Device O2 Liters/Min Minute Volume Vent Rate Vent Mode FiO2 Tidal Volume PEEP Peak Inspir Pressure Pressure Support Sodium Potassium Chloride Carbon Dioxide Anion Gap BUN Creatinine Estim Creat Clear Calc Estimated GFR Glucose POC Capillary Glucose 209 H 171 H Calcium Phosphorus Magnesium Transferrin Total Bilirubin AST ALT Alkaline Phosphatase Total Protein Albumin Triglycerides 384 H Vancomycin Trough 11/27/24 11/27/24 11/28/24 19:51 22:55 00:00 WBC RBC Hgb Hct MCV MCH MCHC RDW Plt Count MPV Immature Gran % (Auto) Neut % (Auto) Lymph % (Auto) [place] % (Auto) Eos % (Auto) Baso % (Auto) Lymph # (Auto) [place] # (Auto) Eos # (Auto) Baso # (Auto) Abs Immat Gran (auto) Absolute Neuts (auto) Absolute Nucleated RBC Nucleated RBC % PT INR APTT Puncture Site ABG pH ABG pCO2 ABG pO2 ABG PO2/FiO2 Ratio ABG HCO3 ABG O2 Saturation ABG O2 Content ABG Base Excess A-a Gradient Oxyhemoglobin Carboxyhemoglobin Methemoglobin Reduced Hemoglobin Total Hemoglobin O2 Delivery Device O2 Liters/Min Minute Volume Vent Rate Vent Mode FiO2 Tidal Volume PEEP Peak Inspir Pressure Pressure Support Sodium Potassium Chloride Carbon Dioxide Anion Gap BUN Creatinine Estim Creat Clear Calc Estimated GFR Glucose POC Capillary Glucose 185 H 220 H 223 H Calcium Phosphorus Magnesium Transferrin Total Bilirubin AST ALT Alkaline Phosphatase Total Protein Albumin Triglycerides Vancomycin Trough 11/28/24 11/28/24 11/28/24 03:36 03:52 05:03 WBC 14.7 H RBC 3.19 L Hgb 9.9 L Hct 31.2 L MCV 97.8 MCH 31.0 MCHC 31.7 L RDW 13.3 Plt Count 196 MPV 10.5 H Immature Gran % (Auto) 6.5 H Neut % (Auto) 78.7 H Lymph % (Auto) 10.5 L [place] % (Auto) 3.9 Eos % (Auto) 0.1 Baso % (Auto) 0.3 Lymph # (Auto) 1.55 [place] # (Auto) 0.6 Eos # (Auto) 0.0 Baso # (Auto) 0.0 Abs Immat Gran (auto) 0.95 H Absolute Neuts (auto) 11.6 H Absolute Nucleated RBC 0.000 Nucleated RBC % 0.0 PT 14.2 INR 1.1 APTT 24.6 Puncture Site Left radial ABG pH 7.477 H ABG pCO2 42.7 ABG pO2 87.5 ABG PO2/FiO2 Ratio 2.50 ABG HCO3 30.9 H ABG O2 Saturation 97.1 ABG O2 Content 14.9 L ABG Base Excess 6.7 A-a Gradient 112.4 Oxyhemoglobin 96.2 Carboxyhemoglobin 0.1 Methemoglobin 0.0 Reduced Hemoglobin 3.7 Total Hemoglobin 10.9 L O2 Delivery Device Ventilator O2 Liters/Min Not Reportable Minute Volume Not Reportable Vent Rate 18 Vent Mode Cmv FiO2 35 Tidal Volume 450 PEEP 10 Peak Inspir Pressure Not Reportable Pressure Support Not Reportable Sodium 146 H Potassium 3.0 L Chloride 108 H Carbon Dioxide 31 H Anion Gap 7 BUN 29 H Creatinine 0.77 Estim Creat Clear Calc 121 Estimated GFR > 60 Glucose 196 H POC Capillary Glucose Calcium 8.1 L Phosphorus 2.9 Magnesium 2.4 H Transferrin 129 L Total Bilirubin 1.3 AST 48 ALT 44 Alkaline Phosphatase 115 Total Protein 5.5 L Albumin 2.5 L Triglycerides Vancomycin Trough 8.1 L 11/28/24 08:32 WBC RBC Hgb Hct MCV MCH MCHC RDW Plt Count MPV Immature Gran % (Auto) Neut % (Auto) Lymph % (Auto) [place] % (Auto) Eos % (Auto) Baso % (Auto) Lymph # (Auto) [place] # (Auto) Eos # (Auto) Baso # (Auto) Abs Immat Gran (auto) Absolute Neuts (auto) Absolute Nucleated RBC Nucleated RBC % PT INR APTT Puncture Site ABG pH ABG pCO2 ABG pO2 ABG PO2/FiO2 Ratio ABG HCO3 ABG O2 Saturation ABG O2 Content ABG Base Excess A-a Gradient Oxyhemoglobin Carboxyhemoglobin Methemoglobin Reduced Hemoglobin Total Hemoglobin O2 Delivery Device O2 Liters/Min Minute Volume Vent Rate Vent Mode FiO2 Tidal Volume PEEP Peak Inspir Pressure Pressure Support Sodium Potassium Chloride Carbon Dioxide Anion Gap BUN Creatinine Estim Creat Clear Calc Estimated GFR Glucose POC Capillary Glucose 201 H Calcium Phosphorus Magnesium Transferrin Total Bilirubin AST ALT Alkaline Phosphatase Total Protein Albumin Triglycerides Vancomycin Trough Quality VTE Prophylaxis VTE prophylaxis: pharmacologic ordered (Lovenox 40 mg subQ daily)
--- NOTE | 2024-11-28 13:11 | PM.PNGS ---
Progress Note: A&P Assessment and Plan (1) Perforated abdominal viscus: Code(s): R19.8 - Other specified symptoms and signs involving the digestive system and abdomen Status: Acute Assessment and Plan: Off pressors, still on ventilator, having fevers, may have colocutanous fistula. Spoke with patient's sister, brother, good friend. Explained current condition, areas of improvement, possiblity of fistula, current management plans. (2) Severe sepsis: Code(s): A41.9 - Sepsis, unspecified organism; R65.20 - Severe sepsis without septic shock Status: Acute Assessment and Plan: improving (3) Acute hypoxic respiratory failure: Code(s): J96.01 - Acute respiratory failure with hypoxia Status: Acute Assessment and Plan: Spoke with Dr. Lugo, plan to try to wean next couple of days (4) Open abdominal incision with drainage: Qualifiers: Encounter type: subsequent encounter Qualified Code(s): T81.321D - Disruption or dehiscence of closure of internal operation (surgical) wound of abdominal wall muscle or fascia, subsequent encounter Code(s): T81.321A - Disruption or dehiscence of closure of internal operation (surgical) wound of abdominal wall muscle or fascia, initial encounter Status: Acute Assessment and Plan: First time noted fecal odor and drainage suspicious for fecal material per wound vac. Possibly fistula. Controlled at present, sepsis improving. Continue to follow closely. If a fistula, expect will heal with vac therapy. Leave tube feeds at low rate. (5) DVT (deep venous thrombosis): Code(s): I82.409 - Acute embolism and thrombosis of unspecified deep veins of unspecified lower extremity Status: Acute Assessment and Plan: right arm and subclavian veins, likely due to PICC line. Start anticoagulation for treatment. Discussed with Dr. Lugo. Subjective Subjective Date/Time Seen: 11/28/24 13:11 Patient reports: no bowel movement, fever and other (still on ventilator, off vasopressors) Review of Systems Review of Systems: ROS unobtainable: Yes unobtainable due to endotracheal tube Exam Const: General: patient obtunded (sedated) GI: Inspection: Abdominal wall edema, non-distended, incision (odor, fecal staining lower 1/3), no visible herniation and other (wound vac drainage c/w liquid stool) GI Palp: Yes Soft to palpation, No Rigid due to palpation, No Hernia present and No Palpable mass present Auscultation: normal bowel sounds Other: fecal drainage from lower 1/3 wound suggestive of fistula Urinary Catheter: Urinary Catheter: patent and draining Objective Data Vital Signs Vital Signs: Vital Signs - 24 hr 11/27/24 14:00 11/27/24 14:00 11/27/24 14:00 Temperature 38.0 C H Pulse Rate 68 68 68 Respiratory Rate 18 18 Blood Pressure 119/77 Pulse Oximetry 96 Oxygen Delivery Fraction of Inspired Oxygen 11/27/24 14:00 11/27/24 14:19 11/27/24 14:20 Temperature Pulse Rate 68 70 70 Respiratory Rate 18 19 Blood Pressure Pulse Oximetry 96 Oxygen Delivery Mechanical Ventilation Fraction of Inspired Oxygen 45 11/27/24 14:28 11/27/24 16:00 11/27/24 16:00 Temperature Pulse Rate 81 72 Respiratory Rate 20 Blood Pressure Pulse Oximetry 97 Oxygen Delivery Mechanical Ventilation Fraction of Inspired Oxygen 45 11/27/24 16:00 11/27/24 16:00 11/27/24 16:00 Temperature 37.9 C H Pulse Rate 70 70 Respiratory Rate 19 19 Blood Pressure 111/66 Pulse Oximetry 98 Oxygen Delivery Fraction of Inspired Oxygen 45 11/27/24 16:00 11/27/24 17:05 11/27/24 17:10 Temperature Pulse Rate 70 73 Respiratory Rate 19 Blood Pressure Pulse Oximetry 98 Oxygen Delivery Mechanical Ventilation Fraction of Inspired Oxygen 40 40 11/27/24 18:00 11/27/24 18:00 11/27/24 18:00 Temperature 38.1 C H Pulse Rate 73 74 79 Respiratory Rate 20 20 Blood Pressure 134/80 Pulse Oximetry 98 Oxygen Delivery Fraction of Inspired Oxygen 11/27/24 18:00 11/27/24 20:00 11/27/24 20:00 Temperature 38.3 C H Pulse Rate 79 78 Respiratory Rate 20 18 Blood Pressure 147/79 H Pulse Oximetry 99 99 Oxygen Delivery Mechanical Ventilation Fraction of Inspired Oxygen 40 11/27/24 20:00 11/27/24 20:00 11/27/24 20:00 Temperature Pulse Rate 78 78 Respiratory Rate 18 18 Blood Pressure Pulse Oximetry Oxygen Delivery Fraction of Inspired Oxygen 40 11/27/24 20:00 11/27/24 21:24 11/27/24 21:24 Temperature Pulse Rate 76 81 78 Respiratory Rate 18 Blood Pressure Pulse Oximetry 97 Oxygen Delivery Mechanical Ventilation Fraction of Inspired Oxygen 40 11/27/24 21:34 11/27/24 22:00 11/27/24 22:00 Temperature 38.4 C H Pulse Rate 81 91 91 Respiratory Rate 18 21 H Blood Pressure 145/81 H Pulse Oximetry 97 Oxygen Delivery Fraction of Inspired Oxygen 11/27/24 22:00 11/27/24 22:00 11/27/24 23:00 Temperature Pulse Rate 91 91 87 Respiratory Rate 21 H 21 H 19 Blood Pressure Pulse Oximetry Oxygen Delivery Fraction of Inspired Oxygen 11/27/24 23:00 11/28/24 00:00 11/28/24 00:00 Temperature Pulse Rate 87 66 66 Respiratory Rate 19 24 H 24 H Blood Pressure Pulse Oximetry Oxygen Delivery Fraction of Inspired Oxygen 11/28/24 00:00 11/28/24 00:00 11/28/24 00:00 Temperature 38.3 C H Pulse Rate 66 Respiratory Rate 24 H Blood Pressure 133/79 Pulse Oximetry 97 97 Oxygen Delivery Mechanical Ventilation Fraction of Inspired Oxygen 40 40 11/28/24 00:00 11/28/24 00:28 11/28/24 01:54 Temperature Pulse Rate 66 73 81 Respiratory Rate 18 Blood Pressure Pulse Oximetry 99 Oxygen Delivery Mechanical Ventilation Fraction of Inspired Oxygen 40 11/28/24 02:00 11/28/24 02:00 11/28/24 02:00 Temperature 37.9 C H Pulse Rate 60 61 61 Respiratory Rate 19 19 Blood Pressure 125/76 Pulse Oximetry 98 Oxygen Delivery Fraction of Inspired Oxygen 11/28/24 02:00 11/28/24 02:00 11/28/24 02:04 Temperature Pulse Rate 61 81 Respiratory Rate 19 18 Blood Pressure Pulse Oximetry Oxygen Delivery Fraction of Inspired Oxygen 35 11/28/24 02:19 11/28/24 04:00 11/28/24 04:00 Temperature 37.7 C H Pulse Rate 59 L 75 Respiratory Rate 18 Blood Pressure 121/78 Pulse Oximetry 99 97 Oxygen Delivery Mechanical Ventilation Fraction of Inspired Oxygen 35 35 11/28/24 04:00 11/28/24 04:00 11/28/24 04:00 Temperature Pulse Rate 75 75 Respiratory Rate 18 18 Blood Pressure Pulse Oximetry 97 Oxygen Delivery Mechanical Ventilation Fraction of Inspired Oxygen 35 11/28/24 04:00 11/28/24 05:16 11/28/24 06:00 Temperature Pulse Rate 75 60 67 Respiratory Rate 18 Blood Pressure Pulse Oximetry 98 Oxygen Delivery Mechanical Ventilation Fraction of Inspired Oxygen 35 11/28/24 06:00 11/28/24 06:00 11/28/24 06:00 Temperature 37.8 C H Pulse Rate 67 67 67 Respiratory Rate 18 18 Blood Pressure 124/76 Pulse Oximetry 98 Oxygen Delivery Fraction of Inspired Oxygen 11/28/24 06:22 11/28/24 06:22 11/28/24 08:00 Temperature 38.2 C H Pulse Rate 70 70 72 Respiratory Rate 20 20 22 H Blood Pressure 134/82 Pulse Oximetry 98 Oxygen Delivery Fraction of Inspired Oxygen 11/28/24 08:00 11/28/24 08:00 11/28/24 08:00 Temperature Pulse Rate 62 75 Respiratory Rate 19 Blood Pressure Pulse Oximetry 98 Oxygen Delivery Mechanical Ventilation Fraction of Inspired Oxygen 35 35 11/28/24 08:25 11/28/24 08:38 11/28/24 08:38 Temperature Pulse Rate 73 83 83 Respiratory Rate 19 19 Blood Pressure Pulse Oximetry 99 Oxygen Delivery Mechanical Ventilation Fraction of Inspired Oxygen 35 11/28/24 08:42 11/28/24 08:44 11/28/24 09:08 Temperature 38.3 C H Pulse Rate 79 80 Respiratory Rate 19 12 Blood Pressure Pulse Oximetry Oxygen Delivery Fraction of Inspired Oxygen 11/28/24 09:08 11/28/24 09:42 11/28/24 09:55 Temperature 37.8 C H Pulse Rate 80 71 Respiratory Rate 15 20 Blood Pressure Pulse Oximetry Oxygen Delivery Fraction of Inspired Oxygen 11/28/24 10:00 11/28/24 10:00 11/28/24 10:15 Temperature 38.2 C H Pulse Rate 71 62 73 Respiratory Rate 21 H 19 Blood Pressure 120/71 Pulse Oximetry 98 Oxygen Delivery Fraction of Inspired Oxygen 11/28/24 10:45 11/28/24 10:56 11/28/24 11:00 Temperature Pulse Rate 58 L 59 L 58 L Respiratory Rate 29 H 17 Blood Pressure Pulse Oximetry 98 Oxygen Delivery Mechanical Ventilation Fraction of Inspired Oxygen 35 11/28/24 11:03 11/28/24 11:41 11/28/24 13:02 Temperature Pulse Rate 61 56 L 54 L Respiratory Rate 16 18 17 Blood Pressure Pulse Oximetry Oxygen Delivery Fraction of Inspired Oxygen febrile but temp curve trending down oxygenation improved on vent Intake/Output Intake/Output: Intake & Output 11/25/24 11/26/24 11/27/24 11/28/24 23:59 23:59 23:59 23:59 Intake Total 2905.3 2657.2 2707.3 1461.5 Output Total 1770 3295 4050 3000 Balance 1135.3 -637.8 -1342.7 -1538.5 Meds/Results Medications: Active Medications Generic Name Dose Route Start Last Admin Trade Name Freq PRN Reason Stop Dose Admin Acetaminophen 650 mg 11/28/24 07:42 11/28/24 08:42 Acetaminophen Elixir 325 Mg/10.15 Ml Udc PO 650 mg Q4H PRN Administration Mild Pain (1-3) or Fever Dextrose 12.5 gm 11/24/24 08:03 Dextrose 50% 25 Gm/50 Ml Syringe IV PUSH PRN PRN Hypoglycemia Protocol Enoxaparin Sodium 115 mg 11/28/24 21:00 Enoxaparin 120 Mg/0.8 Ml Syringe SUB-Q Q12HR TAMICA Glucagon 1 mg 11/24/24 08:03 Glucagon For Inj 1 Mg Vial IM PRN PRN Hypoglycemia Protocol Glucose 15 gm 11/24/24 08:03 Glucose Oral Gel 15 Gm Of Glucse In 37.5 Gm Tube PO PRN PRN Hypoglycemia Protocol Fentanyl Citrate 2,500 mcg in 250 mls @ 7.5 mls/hr 11/23/24 14:05 11/28/24 13:02 Fentanyl 2,500 Mcg/Ns 250 Ml IV CONT 75 mcg/hr .[id number] TAMICA 7.5 mls/hr Titration Protocol 75 MCG/HR Midazolam HCl 100 mg in 100 mls @ 4 mls/hr 11/23/24 21:45 11/28/24 11:03 Versed 100 Mg/Ns 100 Ml IV CONT 4 mg/hr .Q25H TAMICA 4 mls/hr Titration Protocol 4 MG/HR Micafungin Sodium 100 mg/ 100 mls @ 100 mls/hr 11/24/24 09:00 11/28/24 08:45 Sodium Chloride IVPB 12/01/24 08:59 100 mls/hr DAILY TAMICA Administration Dextrose 1,000 mls @ 100 mls/hr 11/24/24 08:03 Dextrose 5% 1,000 Ml IVPB PRN PRN Hypoglycemia Protocol Multivitamins 1.25 ml/ 1,002.5 mls @ 40 mls/hr 11/25/24 15:00 11/27/24 15:21 Multivitamins 1.25 ml/ Amino IV CONT 40 mls/hr Acids/Dextrose .Q24H TAMICA Administration Protocol Dextrose 1,000 mls @ 50 mls/hr 11/25/24 14:02 Dextrose 10% IV CONT .Q20H PRN if PN is interrupted Fat Emulsion Intravenous 250 mls @ 20.833 mls/hr 11/25/24 15:00 11/28/24 03:21 Lipids 20% IVPB Infused Q24H TMAICA Infusion Meropenem 1 gm/ Sodium 100 mls @ 200 mls/hr 11/26/24 15:00 11/28/24 07:00 Chloride IVPB Infused Q8H TAMICA Infusion Vancomycin HCl 1,750 mg in 500 mls @ 250 mls/hr 11/28/24 05:00 11/28/24 06:57 Vancomycin 1,750 Mg/Ns 500 Ml IVPB Infused Q8H TAMICA Infusion Dexmedetomidine HCl 400 mcg in 100 mls @ 23.42 mls/hr 11/28/24 08:20 11/28/24 10:45 Precedex 400 Mcg/100 Ml IV CONT 0.8 mcg/kg/hr .Q4H17M TAMICA 23.42 mls/hr Titration Protocol 0.8 MCG/KG/HR Insulin Aspart 3 - 6 units 11/24/24 09:00 11/28/24 08:45 Insulin Aspart (*Bkc) 100 Units/Ml SUB-Q 3 units Q4H TAMICA Administration Protocol Insulin Glargine 16 units 11/26/24 09:00 11/28/24 08:46 Insulin Glargine (*Bkc) 100 Units/Ml SUB-Q 16 units DAILY TAMICA Administration Ipratropium [place] 0.5 mg 11/23/24 14:00 11/28/24 08:18 Ipratropium Br 0.02% Inh Soln 0.5 Mg/2.5 Ml Vial INHALATION 0.5 mg Q6HRT TAMICA Administration Levalbuterol HCl 0.63 mg 11/23/24 14:00 11/28/24 08:19 Levalbuterol Neb 1.25 Mg/3 Ml INHALATION 0.63 mg Q6HRT TAMICA Administration Midazolam HCl 2 mg 11/23/24 21:45 Midazolam Hcl (*Crx) 2 Mg/2 Ml Vial IV PUSH Q5M PRN ventilator asynchrony Multi-Ingred Cream/Lotion/Oil/Oint 1 applic 11/23/24 21:00 11/28/24 08:46 Mineral Oil/White Petrolatum Ointment EACH EYE 1 applic Q12HR TAMICA Administration Pantoprazole Sodium 40 mg 11/24/24 09:00 11/28/24 08:42 Pantoprazole Sodium Iv 40 Mg Vial IV PUSH 40 mg QAM TAMICA Administration Sodium Chloride 10 ml 11/23/24 14:00 11/28/24 05:02 Central Line Flush IV PUSH 10 ml Q8HR TAMICA Administration Sodium Chloride 10 ml 11/23/24 13:39 Central Line Flush IV PUSH PRN PRN with TPN bag changes Sodium Chloride 20 ml 11/23/24 13:39 Central Line Flush IV PUSH PRN PRN after blood draws Radiology Results: ITS Impressions Chest CTA 11/23/24 05:53 IMPRESSION: 1. Free intraperitoneal air in the upper abdomen. Correlate for recent surgery. In the absence of known surgery this is most likely secondary to bowel perforation. Clinically correlate. 2: No large central pulmonary embolism. Limited evaluation of the secondary and tertiary pulmonary arteries. 3: Small right pleural effusion. Dependent atelectasis. 4: Ascites. Abdomen/Pelvis CT 11/23/24 13:00 IMPRESSION: 1. Increasing free intraperitoneal air 11/22/2024, suspicious for bowel leak. Increasing fluid in the mesentery with ascites involving the perihepatic space. No discrete abscess identified. Consider correlation with contrast-enhanced CT abdomen. 2: Increasing consolidation of the lower lobes which may represent atelectasis or pneumonia. 3: Developing small pleural effusions. Abdomen X-Ray 11/23/24 14:04 IMPRESSION: 1: NG tube tip in the stomach. 2: Bibasilar airspace disease, edema versus pneumonia. Head CT 11/26/24 14:47 Impression: No acute intracranial hemorrhage or suspicious mass effect. Chest/Abdomen/Pelvis CTA 11/26/24 14:58 IMPRESSION: No pulmonary embolus. No aortic dissection. Small bilateral pleural effusions, right greater than left with adjacent consolidation, an interval change from prior. Gallbladder distention with mural thickening and surrounding inflammatory change. Right middle and lower lobe nodules, for which follow-up may be performed once patient is beyond this acute phase. No discrete intraperitoneal air is appreciated. Simple free fluid within the dependent portions of the abdomen. Chest X-Ray 11/28/24 07:17 Impression: 1: Persistent bibasilar airspace disease may represent pneumonia and/or atelectasis. Venous Doppler Study 11/28/24 11:19 IMPRESSION: 1. Deep venous thrombosis of the right subclavian, axillary and brachial veins. Dr. Kam Gongora discussed with the grocery clerk stocking]Kurt Castaneda at 11/28/2024 11:23 CDT. Labs Labs: Laboratory Results - last 24 hr 11/27/24 11/27/24 11/27/24 13:40 16:58 19:51 WBC RBC Hgb Hct MCV MCH MCHC RDW Plt Count MPV Immature Gran % (Auto) Neut % (Auto) Lymph % (Auto) Mathews % (Auto) Eos % (Auto) Baso % (Auto) Lymph # (Auto) Mathews # (Auto) Eos # (Auto) Baso # (Auto) Abs Immat Gran (auto) Absolute Neuts (auto) Absolute Nucleated RBC Nucleated RBC % PT INR APTT Puncture Site ABG pH ABG pCO2 ABG pO2 ABG PO2/FiO2 Ratio ABG HCO3 ABG O2 Saturation ABG O2 Content ABG Base Excess A-a Gradient Oxyhemoglobin Carboxyhemoglobin Methemoglobin Reduced Hemoglobin Total Hemoglobin O2 Delivery Device O2 Liters/Min Minute Volume Vent Rate Vent Mode FiO2 Tidal Volume PEEP Peak Inspir Pressure Pressure Support Sodium Potassium Chloride Carbon Dioxide Anion Gap BUN Creatinine Estim Creat Clear Calc Estimated GFR Glucose POC Capillary Glucose 171 H 185 H Calcium Phosphorus Magnesium Transferrin Total Bilirubin AST ALT Alkaline Phosphatase Total Protein Albumin Triglycerides 384 H Vancomycin Trough 11/27/24 11/28/24 11/28/24 22:55 00:00 03:36 WBC RBC Hgb Hct MCV MCH MCHC RDW Plt Count MPV Immature Gran % (Auto) Neut % (Auto) Lymph % (Auto) Mathews % (Auto) Eos % (Auto) Baso % (Auto) Lymph # (Auto) Mathews # (Auto) Eos # (Auto) Baso # (Auto) Abs Immat Gran (auto) Absolute Neuts (auto) Absolute Nucleated RBC Nucleated RBC % PT 14.2 INR 1.1 APTT 24.6 Puncture Site ABG pH ABG pCO2 ABG pO2 ABG PO2/FiO2 Ratio ABG HCO3 ABG O2 Saturation ABG O2 Content ABG Base Excess A-a Gradient Oxyhemoglobin Carboxyhemoglobin Methemoglobin Reduced Hemoglobin Total Hemoglobin O2 Delivery Device O2 Liters/Min Minute Volume Vent Rate Vent Mode FiO2 Tidal Volume PEEP Peak Inspir Pressure Pressure Support Sodium Potassium Chloride Carbon Dioxide Anion Gap BUN Creatinine Estim Creat Clear Calc Estimated GFR Glucose POC Capillary Glucose 220 H 223 H Calcium Phosphorus Magnesium Transferrin Total Bilirubin AST ALT Alkaline Phosphatase Total Protein Albumin Triglycerides Vancomycin Trough 11/28/24 11/28/24 11/28/24 03:52 05:03 08:32 WBC 14.7 H RBC 3.19 L Hgb 9.9 L Hct 31.2 L MCV 97.8 MCH 31.0 MCHC 31.7 L RDW 13.3 Plt Count 196 MPV 10.5 H Immature Gran % (Auto) 6.5 H Neut % (Auto) 78.7 H Lymph % (Auto) 10.5 L Mathews % (Auto) 3.9 Eos % (Auto) 0.1 Baso % (Auto) 0.3 Lymph # (Auto) 1.55 Mathews # (Auto) 0.6 Eos # (Auto) 0.0 Baso # (Auto) 0.0 Abs Immat Gran (auto) 0.95 H Absolute Neuts (auto) 11.6 H Absolute Nucleated RBC 0.000 Nucleated RBC % 0.0 PT INR APTT Puncture Site Left radial ABG pH 7.477 H ABG pCO2 42.7 ABG pO2 87.5 ABG PO2/FiO2 Ratio 2.50 ABG HCO3 30.9 H ABG O2 Saturation 97.1 ABG O2 Content 14.9 L ABG Base Excess 6.7 A-a Gradient 112.4 Oxyhemoglobin 96.2 Carboxyhemoglobin 0.1 Methemoglobin 0.0 Reduced Hemoglobin 3.7 Total Hemoglobin 10.9 L O2 Delivery Device Ventilator O2 Liters/Min Not Reportable Minute Volume Not Reportable Vent Rate 18 Vent Mode Cmv FiO2 35 Tidal Volume 450 PEEP 10 Peak Inspir Pressure Not Reportable Pressure Support Not Reportable Sodium 146 H Potassium 3.0 L Chloride 108 H Carbon Dioxide 31 H Anion Gap 7 BUN 29 H Creatinine 0.77 Estim Creat Clear Calc 121 Estimated GFR > 60 Glucose 196 H POC Capillary Glucose 201 H Calcium 8.1 L Phosphorus 2.9 Magnesium 2.4 H Transferrin 129 L Total Bilirubin 1.3 AST 48 ALT 44 Alkaline Phosphatase 115 Total Protein 5.5 L Albumin 2.5 L Triglycerides Vancomycin Trough 8.1 L 11/28/24 13:06 WBC RBC Hgb Hct MCV MCH MCHC RDW Plt Count MPV Immature Gran % (Auto) Neut % (Auto) Lymph % (Auto) Mathews % (Auto) Eos % (Auto) Baso % (Auto) Lymph # (Auto) Mathews # (Auto) Eos # (Auto) Baso # (Auto) Abs Immat Gran (auto) Absolute Neuts (auto) Absolute Nucleated RBC Nucleated RBC % PT INR APTT Puncture Site ABG pH ABG pCO2 ABG pO2 ABG PO2/FiO2 Ratio ABG HCO3 ABG O2 Saturation ABG O2 Content ABG Base Excess A-a Gradient Oxyhemoglobin Carboxyhemoglobin Methemoglobin Reduced Hemoglobin Total Hemoglobin O2 Delivery Device O2 Liters/Min Minute Volume Vent Rate Vent Mode FiO2 Tidal Volume PEEP Peak Inspir Pressure Pressure Support Sodium Potassium Chloride Carbon Dioxide Anion Gap BUN Creatinine Estim Creat Clear Calc Estimated GFR Glucose POC Capillary Glucose 209 H Calcium Phosphorus Magnesium Transferrin Total Bilirubin AST ALT Alkaline Phosphatase Total Protein Albumin Triglycerides Vancomycin Trough WBC decreasing
[2024-11-28] MEDS: dexmedeTOMIDine 400 MCG/100 ML 400 MCG/100 ML BAG 23.42 MCG IV CONT (14:00)
[2024-11-28 14:26] LABS: Triglycerides 288 mg/dL (<150)
[2024-11-28] MEDS: AMINO ACIDS 5%/DEXTROSE 15% 1,000 ML with MULTIVITAMINS-12 INJ VIAL 1 1.25 ML, MULTIVIT... 40 ML IV CONT (15:18)
[2024-11-28] MEDS: ENOXAPARIN 80 MG/0.8 ML SYRINGE 75 MG SUB-Q (15:18)
[2024-11-28] MEDS: FAT EMULSIONS IV 20% 250 ML 20.83 ML IVPB (15:19)
--- NOTE | 2024-11-28 17:38 | PM.IMPN ---
Progress Note: A&P Assessment and Plan (1) Acute hypoxic respiratory failure: Code(s): J96.01 - Acute respiratory failure with hypoxia Status: Acute Assessment and Plan: Acute respiratory failure likely related to SIRS/sepsis -11/22: CTA chest: No large central PE, small right pleural effusion, dependent atelectasis, ascites, free intraperitoneal air in the upper abdomen correlate for some recent surgery -patient was initially placed on 10 L nasal cannula, now on high-flow therapy 60 L flow rate and 77% FiO2 -patient significantly tachypneic, breathing 40+ times a minute, with O2 side of 90-92% -11/23: Intubated in the ICU -chest x-ray, ventilator settings and ABGs reviewed this morning. 09/08 PSV SBT done for close to an hour. RSBI, ABGI and Vitals acceptable. Pt awake and following commands. Will extubate and monitor. NPO for now. -continue bronchodilators -off fentanyl. Continue to wean Precedex -discontinued IV fluids -11/26:responded well to Bumex -11/27: Will diurese again today 11/29 Lasix was given. Patient was extubated after a successful weaning trial. 11/30 on 2 L nasal cannula. Continue bronchodilators p.r.n. continue incentive spirometry. Pain control (2) Septic shock: Code(s): A41.9 - Sepsis, unspecified organism; R65.21 - Severe sepsis with septic shock Status: Acute Assessment and Plan: Patient POD #3, tachypneic with hypoxic respiratory failure, lactic acidosis, increasing WBC count, anion gap metabolic acidosis -initial lactic acids were elevated on 11/24/2023 when patient was brought to the ICU, adequately fluid-resuscitated before patient was taken to the OR -sepsis secondary to ruptured appendicitis -11/22: CT scan of the abdomen and pelvis this morning showed postop changes consider the since surgery likely appendectomy, no abscess identified. Small pleural effusion with dependent atelectasis -11/23: Repeat CT scan of the abdomen and pelvis without contrast showed increasing free intraperitoneal air suspicious for bowel leak. Increasing fluid in the mesentery with ascites involving the perihepatic space. No discrete abscess identified. Increasing consolidation of the lower lobes which may represent atelectasis or pneumonia. Developing small pleural effusions -discussed CT results with surgeon, - 11/23: Exploratory laparotomy with ileocolic resection for bowel perforation (cecal perforation) with spillage of bowel contents in the abdominal cavity -OFF ALL PRESSORS, maintain MAP > 65 mmHg or SBP> 100 mmHg -WEAN stress dose steroids -11/24: Blood cultures negative x2 -11/24: Sputum cultures pending -11/24: Urine cultures no growth -continue Zosyn (11/20) and micafungin (11/24) 11/26: Patient has been febrile, Zosyn was discontinued, meropenem and vancomycin added due to consolidation in the right lung > left long as seen on CT scan as under 11/26: CT brain no acute intracranial hemorrhage or suspicious mass effect 11/26: Bilateral lower extremity venous Dopplers were negative for DVTs 11/28: Bilateral upper venous Dopplers showed DVT of the right subclavian, axillary and brachial veins. (patient does have a right arm PICC line. Fevers possibly due to DVT and pneumonia 11/26/2024: CTA chest/abdomen/pelvis IMPRESSION: No pulmonary embolus. No aortic dissection. Small bilateral pleural effusions, right greater than left with adjacent consolidation, an interval change from prior. Gallbladder distention with mural thickening and surrounding inflammatory change. Right middle and lower lobe nodules, for which follow-up may be performed once patient is beyond this acute phase. No discrete intraperitoneal air is appreciated. Simple free fluid within the dependent portions of the abdomen. Fever curve is improving. White count is improving Continue meropenem, vancomycin and micafungin, (3) Status post appendectomy: Onset Date: 11/20/24 Code(s): Z90.49 - Acquired absence of other specified parts of digestive tract Status: Acute Assessment and Plan: 11/20: Discussed with surgery, NG tube will be inserted due to abdominal distension 11/23: Exploratory laparotomy with ileocolic resection for bowel perforation (cecal perforation) with spillage of bowel contents in the abdominal cavity 11/24: Wound VAC placed Treatment plans as above -pain control -11/25: started on TPN after discussing with surgery 11/27: Discussed with surgery, will start trickle tube feeds, started 10 mL, increased to a goal of 20 mL Patient is NPO at this time. General surgery is planning to change wound VAC today. Management per General surgery recommendations (4) DVT (deep venous thrombosis): Qualifiers: DVT location: upper extremity Affected thrombotic vein of extremity: axillary Chronicity: acute Laterality: right Qualified Code(s): I82.A11 - Acute embolism and thrombosis of right axillary vein Code(s): I82.409 - Acute embolism and thrombosis of unspecified deep veins of unspecified lower extremity Status: Acute Assessment and Plan: 11/28: Patient continues to have fevers, bilateral upper extremity venous Doppler with evidence of DVT of the right subclavian, axillary and brachial vein -discuss with surgery regarding therapeutic Lovenox to which the agreeable -11/28: Started patient on therapeutic Lovenox -right PICC line in place (5) Hyperglycemia: Code(s): R73.9 - Hyperglycemia, unspecified Status: Acute Assessment and Plan: Related to stress response and/or steroids -Accu-Cheks and sliding scale insulin -increase dose of Lantus (6) Electrolyte abnormality: Code(s): E87.8 - Other disorders of electrolyte and fluid balance, not elsewhere classified Status: Acute Assessment and Plan: Replace low potassium Plan patient was taken to OR and had emergent exploratory laparotomy, ileocolic resection, patient was transferred to IMU, when I saw the patient he was complaining of severe abdominal pain, I repeat CT scan of the abdomen without contrast and discuss the case with the [employer] Supervisor Dr. Lugo, who examined the patient and transferred to patient to ICU for close observation and management. appreciate assistance of the administrative professional and patient was intubated and remain on ventilator, patient has developed septic shock, febrile, blood culture no growth so far, he being weaned off Vasopressors, patient is being treated with Zosyn, and micafungin, patient clinical symptoms are not improving he is requiring increase peep to 12 and FIO2 of 70% patient is seen by administrative professional, surgery service will monitor and follow. DVT prophylaxis: Lovenox Stress ulcer prophylaxis: Protonix Nutrition: TPN, feeding as per General surgery Code Status: Full code Incentive spirometry Subjective Date/time seen: 11/28/24 17:38 Interval history: H&P-Narrative Patient is a developed acute hypoxic respiratory failure of uncertain etiology. The patient did at have significant drop in his white count from previous and is now leukopenic instead of having leukocytosis. He remains afebrile. He has been on routine DVT prophylaxis postop with Lovenox. Noticed definite water server possible pulmonary embolism. Patient went for stat CT of the chest which was negative for any large vessel PE but more peripheral exam was limited due to contrast timing and motion artifact. The patient is still having right-sided chest pain and has had rapid increase in oxygen requirement up to 10 L nasal cannula. Patient still remains significantly tachypneic and is struggling to maintain oxygen saturations of 92% on [address] patient on Airvo. ABG demonstrated mild respiratory alkalosis. I had initially ordered a dose of Lasix due to crackles on exam but further laboratory findings demonstrated lactic acidosis in a low serum bicarb. The patient's mucous membranes are dry his lips are peeling. He appears more intervascular volume depleted despite nursing reporting that the patient has drinks 5-6 L of water a day or more and receiving IV fluid hydration. According to the cumulative fluid summary the patient is about 4.5 L positive for admission. Patient has remained on Zosyn since admission. CT of the abdomen pelvis demonstrated stable postoperative findings. It Is unclear if the patient is developing sepsis verses, possible ARDS, pulmonary edema seems less likely given lack of findings on imaging. Stat troponin has been ordered. Will repeat EKG. Will check cheetah score is see if patient is fluid responsive. And check echocardiogram to evaluate cardiac structure and function. Electrolyte panel did demonstrate mild hypokalemia. Will check magnesium level and replace if needed. Will give 40 mEq potassium chloride rider. Given poor contrast timing on CTA will obtain lower extremity Dopplers to rule out DVT. patient was taken to OR and had emergent exploratory laparotomy, ileocolic resection, patient was transferred to IMU, when I saw the patient he was complaining of severe abdominal pain, I repeat CT scan of the abdomen without contrast and discuss the case with the [employer] Supervisor Dr. Lugo, who examined the patient and transferred to patient to ICU for close observation and management. appreciate assistance of the administrative professional and patient was intubated and remain on ventilator, patient has developed septic shock, febrile, blood culture no growth so far, he being weaned off Vasopressors, patient is being treated with Zosyn, and micafungin, patient clinical symptoms are not improving he is requiring increase peep to 12 and FIO2 of 70% patient is seen by administrative professional, surgery service will monitor and follow. Review of Systems Review of Systems: ROS unobtainable: Yes unobtainable due to endotracheal tube Exam Narrative: Patient appears in pain Patient is comfortable, NAD HEENT: eyes are clear and none icteric LUNGS:CTA HEART: RR S1S2 ABD: BS+, distended and tender Lower extremities: no edema SKIN: nonjaundiced Neuro: grossly intact. Objective Data Vital Signs Vital Signs: Vital Signs - 24 hr 11/27/24 18:00 11/27/24 18:00 11/27/24 18:00 Temperature 38.1 C H Pulse Rate 73 74 79 Respiratory Rate 20 20 Blood Pressure 134/80 Pulse Oximetry 98 Oxygen Delivery Fraction of Inspired Oxygen 11/27/24 18:00 11/27/24 20:00 11/27/24 20:00 Temperature 38.3 C H Pulse Rate 79 78 Respiratory Rate 20 18 Blood Pressure 147/79 H Pulse Oximetry 99 99 Oxygen Delivery Mechanical Ventilation Fraction of Inspired Oxygen 40 11/27/24 20:00 11/27/24 20:00 11/27/24 20:00 Temperature Pulse Rate 78 78 Respiratory Rate 18 18 Blood Pressure Pulse Oximetry Oxygen Delivery Fraction of Inspired Oxygen 40 11/27/24 20:00 11/27/24 21:24 11/27/24 21:24 Temperature Pulse Rate 76 81 78 Respiratory Rate 18 Blood Pressure Pulse Oximetry 97 Oxygen Delivery Mechanical Ventilation Fraction of Inspired Oxygen 40 11/27/24 21:34 11/27/24 22:00 11/27/24 22:00 Temperature 38.4 C H Pulse Rate 81 91 91 Respiratory Rate 18 21 H Blood Pressure 145/81 H Pulse Oximetry 97 Oxygen Delivery Fraction of Inspired Oxygen 11/27/24 22:00 11/27/24 22:00 11/27/24 23:00 Temperature Pulse Rate 91 91 87 Respiratory Rate 21 H 21 H 19 Blood Pressure Pulse Oximetry Oxygen Delivery Fraction of Inspired Oxygen 11/27/24 23:00 11/28/24 00:00 11/28/24 00:00 Temperature Pulse Rate 87 66 66 Respiratory Rate 19 24 H 24 H Blood Pressure Pulse Oximetry Oxygen Delivery Fraction of Inspired Oxygen 11/28/24 00:00 11/28/24 00:00 11/28/24 00:00 Temperature 38.3 C H Pulse Rate 66 Respiratory Rate 24 H Blood Pressure 133/79 Pulse Oximetry 97 97 Oxygen Delivery Mechanical Ventilation Fraction of Inspired Oxygen 40 40 11/28/24 00:00 11/28/24 00:28 11/28/24 01:54 Temperature Pulse Rate 66 73 81 Respiratory Rate 18 Blood Pressure Pulse Oximetry 99 Oxygen Delivery Mechanical Ventilation Fraction of Inspired Oxygen 40 11/28/24 02:00 11/28/24 02:00 11/28/24 02:00 Temperature 37.9 C H Pulse Rate 60 61 61 Respiratory Rate 19 19 Blood Pressure 125/76 Pulse Oximetry 98 Oxygen Delivery Fraction of Inspired Oxygen 11/28/24 02:00 11/28/24 02:00 11/28/24 02:04 Temperature Pulse Rate 61 81 Respiratory Rate 19 18 Blood Pressure Pulse Oximetry Oxygen Delivery Fraction of Inspired Oxygen 35 11/28/24 02:19 11/28/24 04:00 11/28/24 04:00 Temperature 37.7 C H Pulse Rate 59 L 75 Respiratory Rate 18 Blood Pressure 121/78 Pulse Oximetry 99 97 Oxygen Delivery Mechanical Ventilation Fraction of Inspired Oxygen 35 35 11/28/24 04:00 11/28/24 04:00 11/28/24 04:00 Temperature Pulse Rate 75 75 Respiratory Rate 18 18 Blood Pressure Pulse Oximetry 97 Oxygen Delivery Mechanical Ventilation Fraction of Inspired Oxygen 35 11/28/24 04:00 11/28/24 05:16 11/28/24 06:00 Temperature Pulse Rate 75 60 67 Respiratory Rate 18 Blood Pressure Pulse Oximetry 98 Oxygen Delivery Mechanical Ventilation Fraction of Inspired Oxygen 35 11/28/24 06:00 11/28/24 06:00 11/28/24 06:00 Temperature 37.8 C H Pulse Rate 67 67 67 Respiratory Rate 18 18 Blood Pressure 124/76 Pulse Oximetry 98 Oxygen Delivery Fraction of Inspired Oxygen 11/28/24 06:22 11/28/24 06:22 11/28/24 08:00 Temperature 38.2 C H Pulse Rate 70 70 72 Respiratory Rate 20 20 22 H Blood Pressure 134/82 Pulse Oximetry 98 Oxygen Delivery Fraction of Inspired Oxygen 11/28/24 08:00 11/28/24 08:00 11/28/24 08:00 Temperature Pulse Rate 62 75 Respiratory Rate 19 Blood Pressure Pulse Oximetry 98 Oxygen Delivery Mechanical Ventilation Fraction of Inspired Oxygen 35 35 11/28/24 08:00 11/28/24 08:00 11/28/24 08:25 Temperature Pulse Rate 78 72 73 Respiratory Rate 19 15 19 Blood Pressure Pulse Oximetry Oxygen Delivery Fraction of Inspired Oxygen 11/28/24 08:38 11/28/24 08:38 11/28/24 08:42 Temperature 38.3 C H Pulse Rate 83 83 Respiratory Rate 19 Blood Pressure Pulse Oximetry 99 Oxygen Delivery Mechanical Ventilation Fraction of Inspired Oxygen 35 11/28/24 08:44 11/28/24 09:08 11/28/24 09:08 Temperature Pulse Rate 79 80 80 Respiratory Rate 19 12 15 Blood Pressure Pulse Oximetry Oxygen Delivery Fraction of Inspired Oxygen 11/28/24 09:42 11/28/24 09:55 11/28/24 10:00 Temperature 37.8 C H 38.2 C H Pulse Rate 71 71 Respiratory Rate 20 21 H Blood Pressure 120/71 Pulse Oximetry 98 Oxygen Delivery Fraction of Inspired Oxygen 11/28/24 10:00 11/28/24 10:00 11/28/24 10:00 Temperature Pulse Rate 62 65 59 L Respiratory Rate 16 18 Blood Pressure Pulse Oximetry Oxygen Delivery Fraction of Inspired Oxygen 11/28/24 10:00 11/28/24 10:15 11/28/24 10:45 Temperature Pulse Rate 69 73 58 L Respiratory Rate 19 19 29 H Blood Pressure Pulse Oximetry Oxygen Delivery Fraction of Inspired Oxygen 11/28/24 10:56 11/28/24 11:00 11/28/24 11:03 Temperature Pulse Rate 59 L 58 L 61 Respiratory Rate 17 16 Blood Pressure Pulse Oximetry 98 Oxygen Delivery Mechanical Ventilation Fraction of Inspired Oxygen 35 11/28/24 11:41 11/28/24 12:00 11/28/24 12:00 Temperature Pulse Rate 56 L 57 L Respiratory Rate 18 Blood Pressure Pulse Oximetry Oxygen Delivery Fraction of Inspired Oxygen 35 11/28/24 12:00 11/28/24 12:00 11/28/24 12:00 Temperature 37.9 C H Pulse Rate 57 L 53 L 61 Respiratory Rate 17 18 18 Blood Pressure 116/73 Pulse Oximetry 99 98 Oxygen Delivery Mechanical Ventilation Fraction of Inspired Oxygen 35 11/28/24 12:00 11/28/24 12:00 11/28/24 13:02 Temperature Pulse Rate 59 L 60 54 L Respiratory Rate 17 17 17 Blood Pressure Pulse Oximetry Oxygen Delivery Fraction of Inspired Oxygen 11/28/24 14:00 11/28/24 14:00 11/28/24 14:00 Temperature Pulse Rate 56 L 56 L 58 L Respiratory Rate 18 18 20 Blood Pressure Pulse Oximetry Oxygen Delivery Fraction of Inspired Oxygen 11/28/24 14:00 11/28/24 14:00 11/28/24 14:00 Temperature 37.4 C Pulse Rate 67 56 L 57 L Respiratory Rate 16 17 Blood Pressure 125/80 Pulse Oximetry 99 Oxygen Delivery Fraction of Inspired Oxygen 11/28/24 14:20 11/28/24 14:31 11/28/24 14:32 Temperature Pulse Rate 55 L 60 60 Respiratory Rate 18 18 Blood Pressure Pulse Oximetry 98 Oxygen Delivery Mechanical Ventilation Fraction of Inspired Oxygen 35 11/28/24 15:15 11/28/24 15:16 11/28/24 15:28 Temperature Pulse Rate 62 61 58 L Respiratory Rate 17 19 16 Blood Pressure Pulse Oximetry Oxygen Delivery Fraction of Inspired Oxygen 11/28/24 16:00 11/28/24 16:00 11/28/24 16:00 Temperature Pulse Rate 60 56 L 56 L Respiratory Rate 18 18 17 Blood Pressure Pulse Oximetry Oxygen Delivery Fraction of Inspired Oxygen 11/28/24 17:25 Temperature Pulse Rate 61 Respiratory Rate Blood Pressure Pulse Oximetry 98 Oxygen Delivery Mechanical Ventilation Fraction of Inspired Oxygen 35 Intake/Output Intake/Output: Intake & Output 11/25/24 11/26/24 11/27/24 11/28/24 23:59 23:59 23:59 23:59 Intake Total 2905.3 2657.2 2707.3 2584.3 Output Total 1770 3295 4050 3000 Balance 1135.3 -637.8 -1342.7 -415.7 Meds/Results Medications: Active Medications Generic Name Dose Route Start Last Admin Trade Name Freq PRN Reason Stop Dose Admin Acetaminophen 650 mg 11/28/24 07:42 11/28/24 08:42 Acetaminophen Elixir 325 Mg/10.15 Ml Udc PO 650 mg Q4H PRN Administration Mild Pain (1-3) or Fever Dextrose 12.5 gm 11/24/24 08:03 Dextrose 50% 25 Gm/50 Ml Syringe IV PUSH PRN PRN Hypoglycemia Protocol Enoxaparin Sodium 115 mg 11/28/24 21:00 Enoxaparin 120 Mg/0.8 Ml Syringe SUB-Q Q12HR TAMICA Glucagon 1 mg 11/24/24 08:03 Glucagon For Inj 1 Mg Vial IM PRN PRN Hypoglycemia Protocol Glucose 15 gm 11/24/24 08:03 Glucose Oral Gel 15 Gm Of Glucse In 37.5 Gm Tube PO PRN PRN Hypoglycemia Protocol Fentanyl Citrate 2,500 mcg in 250 mls @ 5 mls/hr 11/23/24 14:05 11/28/24 16:00 Fentanyl 2,500 Mcg/Ns 250 Ml IV CONT 50 mcg/hr .Q50H TAMICA 5 mls/hr Titration Protocol 50 MCG/HR Midazolam HCl 100 mg in 100 mls @ 2 mls/hr 11/23/24 21:45 11/28/24 16:00 Versed 100 Mg/Ns 100 Ml IV CONT 2 mg/hr .Q50H TAMICA 2 mls/hr Titration Protocol 2 MG/HR Micafungin Sodium 100 mg/ 100 mls @ 100 mls/hr 11/24/24 09:00 11/28/24 08:45 Sodium Chloride IVPB 12/01/24 08:59 100 mls/hr DAILY TAMICA Administration Dextrose 1,000 mls @ 100 mls/hr 11/24/24 08:03 Dextrose 5% 1,000 Ml IVPB PRN PRN Hypoglycemia Protocol Multivitamins 1.25 ml/ 1,002.5 mls @ 40 mls/hr 11/25/24 15:00 11/28/24 15:18 Multivitamins 1.25 ml/ Amino IV CONT 40 mls/hr Acids/Dextrose .Q24H TAMICA Administration Protocol Dextrose 1,000 mls @ 50 mls/hr 11/25/24 14:02 Dextrose 10% IV CONT .Q20H PRN if PN is interrupted Fat Emulsion Intravenous 250 mls @ 20.833 mls/hr 11/25/24 15:00 11/28/24 15:19 Lipids 20% IVPB 20.83 mls/hr Q24H TAMICA Administration Meropenem 1 gm/ Sodium 100 mls @ 200 mls/hr 11/26/24 15:00 11/28/24 15:30 Chloride IVPB 200 mls/hr Q8H TAMICA Administration Vancomycin HCl 1,750 mg in 500 mls @ 250 mls/hr 11/28/24 05:00 11/28/24 15:18 Vancomycin 1,750 Mg/Ns 500 Ml IVPB 250 mls/hr Q8H TAMICA Administration Dexmedetomidine HCl 400 mcg in 100 mls @ 29.275 mls/hr 11/28/24 08:20 11/28/24 16:00 Precedex 400 Mcg/100 Ml IV CONT 1 mcg/kg/hr .Q3H25M TAMICA 29.28 mls/hr Titration Protocol 1 MCG/KG/HR Insulin Aspart 3 - 6 units 11/24/24 09:00 11/28/24 14:15 Insulin Aspart (*Bkc) 100 Units/Ml SUB-Q 3 units Q4H TAMICA Administration Protocol Insulin Glargine 16 units 11/26/24 09:00 11/28/24 08:46 Insulin Glargine (*Bkc) 100 Units/Ml SUB-Q 16 units DAILY TAMICA Administration Ipratropium [place] 0.5 mg 11/23/24 14:00 11/28/24 14:20 Ipratropium Br 0.02% Inh Soln 0.5 Mg/2.5 Ml Vial INHALATION 0.5 mg Q6HRT TAMICA Administration Levalbuterol HCl 0.63 mg 11/23/24 14:00 11/28/24 14:20 Levalbuterol Neb 1.25 Mg/3 Ml INHALATION 0.63 mg Q6HRT TAMICA Administration Midazolam HCl 2 mg 11/23/24 21:45 Midazolam Hcl (*Crx) 2 Mg/2 Ml Vial IV PUSH Q5M PRN ventilator asynchrony Multi-Ingred Cream/Lotion/Oil/Oint 1 applic 11/23/24 21:00 11/28/24 08:46 Mineral Oil/White Petrolatum Ointment EACH EYE 1 applic Q12HR TAMICA Administration Pantoprazole Sodium 40 mg 11/24/24 09:00 11/28/24 08:42 Pantoprazole Sodium Iv 40 Mg Vial IV PUSH 40 mg QAM TAMICA Administration Sodium Chloride 10 ml 11/23/24 14:00 11/28/24 14:00 Central Line Flush IV PUSH 10 ml Q8HR TAMICA Administration Sodium Chloride 10 ml 11/23/24 13:39 Central Line Flush IV PUSH PRN PRN with TPN bag changes Sodium Chloride 20 ml 11/23/24 13:39 Central Line Flush IV PUSH PRN PRN after blood draws Radiology Results: ITS Impressions Chest CTA 11/23/24 05:53 IMPRESSION: 1. Free intraperitoneal air in the upper abdomen. Correlate for recent surgery. In the absence of known surgery this is most likely secondary to bowel perforation. Clinically correlate. 2: No large central pulmonary embolism. Limited evaluation of the secondary and tertiary pulmonary arteries. 3: Small right pleural effusion. Dependent atelectasis. 4: Ascites. Abdomen/Pelvis CT 11/23/24 13:00 IMPRESSION: 1. Increasing free intraperitoneal air 11/22/2024, suspicious for bowel leak. Increasing fluid in the mesentery with ascites involving the perihepatic space. No discrete abscess identified. Consider correlation with contrast-enhanced CT abdomen. 2: Increasing consolidation of the lower lobes which may represent atelectasis or pneumonia. 3: Developing small pleural effusions. Abdomen X-Ray 11/23/24 14:04 IMPRESSION: 1: NG tube tip in the stomach. 2: Bibasilar airspace disease, edema versus pneumonia. Head CT 11/26/24 14:47 Impression: No acute intracranial hemorrhage or suspicious mass effect. Chest/Abdomen/Pelvis CTA 11/26/24 14:58 IMPRESSION: No pulmonary embolus. No aortic dissection. Small bilateral pleural effusions, right greater than left with adjacent consolidation, an interval change from prior. Gallbladder distention with mural thickening and surrounding inflammatory change. Right middle and lower lobe nodules, for which follow-up may be performed once patient is beyond this acute phase. No discrete intraperitoneal air is appreciated. Simple free fluid within the dependent portions of the abdomen. Chest X-Ray 11/28/24 07:17 Impression: 1: Persistent bibasilar airspace disease may represent pneumonia and/or atelectasis. Venous Doppler Study 11/28/24 11:19 IMPRESSION: 1. Deep venous thrombosis of the right subclavian, axillary and brachial veins. Dr. Kam Gongora discussed with the clinical documentation clerk]Kurt Castaneda at 11/28/2024 11:23 CDT. Labs Labs: Laboratory Results - last 24 hr 11/27/24 11/27/24 11/27/24 16:58 19:51 22:55 WBC RBC Hgb Hct MCV MCH MCHC RDW Plt Count MPV Immature Gran % (Auto) Neut % (Auto) Lymph % (Auto) [place] % (Auto) Eos % (Auto) Baso % (Auto) Lymph # (Auto) [place] # (Auto) Eos # (Auto) Baso # (Auto) Abs Immat Gran (auto) Absolute Neuts (auto) Absolute Nucleated RBC Nucleated RBC % PT INR APTT Puncture Site ABG pH ABG pCO2 ABG pO2 ABG PO2/FiO2 Ratio ABG HCO3 ABG O2 Saturation ABG O2 Content ABG Base Excess A-a Gradient Oxyhemoglobin Carboxyhemoglobin Methemoglobin Reduced Hemoglobin Total Hemoglobin O2 Delivery Device O2 Liters/Min Minute Volume Vent Rate Vent Mode FiO2 Tidal Volume PEEP Peak Inspir Pressure Pressure Support Sodium Potassium Chloride Carbon Dioxide Anion Gap BUN Creatinine Estim Creat Clear Calc Estimated GFR Glucose POC Capillary Glucose 171 H 185 H 220 H Calcium Phosphorus Magnesium Transferrin Total Bilirubin AST ALT Alkaline Phosphatase Total Protein Albumin Triglycerides Vancomycin Trough 11/28/24 11/28/24 11/28/24 00:00 03:36 03:52 WBC 14.7 H RBC 3.19 L Hgb 9.9 L Hct 31.2 L MCV 97.8 MCH 31.0 MCHC 31.7 L RDW 13.3 Plt Count 196 MPV 10.5 H Immature Gran % (Auto) 6.5 H Neut % (Auto) 78.7 H Lymph % (Auto) 10.5 L [place] % (Auto) 3.9 Eos % (Auto) 0.1 Baso % (Auto) 0.3 Lymph # (Auto) 1.55 [place] # (Auto) 0.6 Eos # (Auto) 0.0 Baso # (Auto) 0.0 Abs Immat Gran (auto) 0.95 H Absolute Neuts (auto) 11.6 H Absolute Nucleated RBC 0.000 Nucleated RBC % 0.0 PT 14.2 INR 1.1 APTT 24.6 Puncture Site ABG pH ABG pCO2 ABG pO2 ABG PO2/FiO2 Ratio ABG HCO3 ABG O2 Saturation ABG O2 Content ABG Base Excess A-a Gradient Oxyhemoglobin Carboxyhemoglobin Methemoglobin Reduced Hemoglobin Total Hemoglobin O2 Delivery Device O2 Liters/Min Minute Volume Vent Rate Vent Mode FiO2 Tidal Volume PEEP Peak Inspir Pressure Pressure Support Sodium 146 H Potassium 3.0 L Chloride 108 H Carbon Dioxide 31 H Anion Gap 7 BUN 29 H Creatinine 0.77 Estim Creat Clear Calc 121 Estimated GFR > 60 Glucose 196 H POC Capillary Glucose 223 H Calcium 8.1 L Phosphorus 2.9 Magnesium 2.4 H Transferrin 129 L Total Bilirubin 1.3 AST 48 ALT 44 Alkaline Phosphatase 115 Total Protein 5.5 L Albumin 2.5 L Triglycerides Vancomycin Trough 8.1 L 11/28/24 11/28/24 11/28/24 05:03 08:32 13:06 WBC RBC Hgb Hct MCV MCH MCHC RDW Plt Count MPV Immature Gran % (Auto) Neut % (Auto) Lymph % (Auto) [place] % (Auto) Eos % (Auto) Baso % (Auto) Lymph # (Auto) [place] # (Auto) Eos # (Auto) Baso # (Auto) Abs Immat Gran (auto) Absolute Neuts (auto) Absolute Nucleated RBC Nucleated RBC % PT INR APTT Puncture Site Left radial ABG pH 7.477 H ABG pCO2 42.7 ABG pO2 87.5 ABG PO2/FiO2 Ratio 2.50 ABG HCO3 30.9 H ABG O2 Saturation 97.1 ABG O2 Content 14.9 L ABG Base Excess 6.7 A-a Gradient 112.4 Oxyhemoglobin 96.2 Carboxyhemoglobin 0.1 Methemoglobin 0.0 Reduced Hemoglobin 3.7 Total Hemoglobin 10.9 L O2 Delivery Device Ventilator O2 Liters/Min Not Reportable Minute Volume Not Reportable Vent Rate 18 Vent Mode Cmv FiO2 35 Tidal Volume 450 PEEP 10 Peak Inspir Pressure Not Reportable Pressure Support Not Reportable Sodium Potassium Chloride Carbon Dioxide Anion Gap BUN Creatinine Estim Creat Clear Calc Estimated GFR Glucose POC Capillary Glucose 201 H 209 H Calcium Phosphorus Magnesium Transferrin Total Bilirubin AST ALT Alkaline Phosphatase Total Protein Albumin Triglycerides Vancomycin Trough 11/28/24 13:44 WBC RBC Hgb Hct MCV MCH MCHC RDW Plt Count MPV Immature Gran % (Auto) Neut % (Auto) Lymph % (Auto) [place] % (Auto) Eos % (Auto) Baso % (Auto) Lymph # (Auto) [place] # (Auto) Eos # (Auto) Baso # (Auto) Abs Immat Gran (auto) Absolute Neuts (auto) Absolute Nucleated RBC Nucleated RBC % PT INR APTT Puncture Site ABG pH ABG pCO2 ABG pO2 ABG PO2/FiO2 Ratio ABG HCO3 ABG O2 Saturation ABG O2 Content ABG Base Excess A-a Gradient Oxyhemoglobin Carboxyhemoglobin Methemoglobin Reduced Hemoglobin Total Hemoglobin O2 Delivery Device O2 Liters/Min Minute Volume Vent Rate Vent Mode FiO2 Tidal Volume PEEP Peak Inspir Pressure Pressure Support Sodium Potassium Chloride Carbon Dioxide Anion Gap BUN Creatinine Estim Creat Clear Calc Estimated GFR Glucose POC Capillary Glucose Calcium Phosphorus Magnesium Transferrin Total Bilirubin AST ALT Alkaline Phosphatase Total Protein Albumin Triglycerides 288 H Vancomycin Trough Quality VTE Prophylaxis VTE prophylaxis: pharmacologic ordered
[2024-11-28] MEDS: MIDAZOLAM 100MG/NS 100ML(*CRX) 100 MG/100 ML BAG IV CONT (18:53)
[2024-11-28] MEDS: dexmedeTOMIDine 400 MCG/100 ML 400 MCG/100 ML BAG 29.28 MCG IV CONT ×2 (18:54→20:42)
[2024-11-28] MEDS: ENOXAPARIN 120 MG/0.8 ML SYRINGE 115 MG SUB-Q (21:38)
[2024-11-29] VITALS (31 sets, daily range): BP systolic 104–143; BP diastolic 66–91; PULSE 43–86; RESP 14–29; TEMP 37.5–38.6; O2SAT 94–100
[2024-11-29] MEDS: INSULIN ASPART (*BKC) 100 UNITS/ML SUB-Q (00:06)
[2024-11-29] MEDS: IPRATROPIUM BR 0.02% INH SOLN 0.5 MG/2.5 ML VIAL INHALATION ×4 (02:38→19:41)
[2024-11-29] MEDS: dexmedeTOMIDine 400 MCG/100 ML 400 MCG/100 ML BAG 26.35 MCG IV CONT ×2 (03:42)
[2024-11-29] MEDS: MIDAZOLAM HCL (*CRX) 2 MG/2 ML VIAL IV PUSH (04:01)
[2024-11-29 04:42] LABS: Hematocrit 33.0 % (42.0-52.0); Hemoglobin 10.7 g/dL (14.0-18.0); Immature Granulocyte Percent A 4.8 % (0-0.5); Lymphocytes Absolute Auto 1.22 K/mm3 (0.9-3.2); Mean Corpuscular HGB Conc 32.4 g/dl (32-36); Mean Corpuscular Hemoglobin 31.7 pg (26-34); Mean Corpuscular Volume 97.6 fl (80-100); Nucleated Red Blood Cells Absolute Auto 0.000 K/mm3 (0.0-0.012); Nucleated Red Blood Cells Perc 0.0 % (0.0-0.2); Platelet Count Result 201 k/mm3 (150-375); Red Blood Count 3.38 M/mm3 (4.6-6.20); White Blood Count 13.6 K/mm3 (4.5-10.0)
[2024-11-29 05:07] LABS: Anion Gap 1 mmol/L (4-12); Blood Urea Nitrogen 27 mg/dL (9-20); Calcium 7.8 mg/dL (8.4-10.2); Carbon Dioxide 29 mmol/L (22-30); Chloride 108 mmol/L (98-107); Estimated CRCL calculation 152 ml/min; Estimated Glomerular Filt Rate > 60; Glucose 190 mg/dL (65-110); Potassium 3.5 mmol/L (3.4-5.0); Sodium 138 mmol/L (137-145)
[2024-11-29 05:21] LABS: Alveolar/Arterial O2 Gradient 82.5 mmHg; Carboxyhemoglobin 0.4 % THb (0-2.0); Fractional Inspired Oxygen 30 %; HCO3 ABG 28.2 mEq/l (22.0-26.0); Methemoglobin ABG 0.3 %THb (0-1.5); Oxygen Content ABG 16.2 %vol (16.0-22.0); Oxygen Saturation ABG 97.4 % (95.0-100.0); PCO2 ABG 37.1 mmHg (35.0-45.0); PO2 ABG 87.8 mmHg (80.0-100.0); PO2 FiO2 Ratio Arterial Blood 2.93 %; Reduced Hemoglobin 3.0 %THb (0-5.0)
[2024-11-29 05:24] LABS: Arterial Blood Gas Ventilator rate 18 /MIN; Modified Allen's Test Pass; Site Drawn LEFT RADIAL
[2024-11-29 05:25] LABS: Arterial Blood Gas Tidal Volume 450 ml
[2024-11-29] MEDS: MEROPENEM 1 GM in SODIUM CHLORIDE 0.9% IV 100 ML 200 ML IVPB ×3 (06:11→22:11)
[2024-11-29] MEDS: ACETAMINOPHEN ELIXIR 325 MG/10.15 ML UDC 650 MG PO (06:14)
[2024-11-29] MEDS: CENTRAL LINE FLUSH 10 ML IV PUSH ×3 (06:14→22:11)
[2024-11-29] MEDS: dexmedeTOMIDine 400 MCG/100 ML 400 MCG/100 ML BAG 29.28 MCG IV CONT (06:34)
[2024-11-29] MEDS: VANCOMYCIN 2,000 MG/NS 500 ML 2,000 MG/500 ML BAG 250 MG IVPB ×3 (06:39→22:11)
[2024-11-29] MEDS: INSULIN GLARGINE (*BKC) 100 UNITS/ML 16 UNITS SUB-Q (07:49)
[2024-11-29] MEDS: POTASSIUM BICARBONATE 25 MEQ TABEF FEED TUBE (08:09)
[2024-11-29] MEDS: FUROSEMIDE INJ 40 MG/4 ML VIAL 20 MG IV PUSH (08:09)
[2024-11-29] MEDS: POTASSIUM/PHOSPHORUS/SODIUM 1.5 GM PACKET 1 PACKET FEED TUBE (08:09)
[2024-11-29] MEDS: ENOXAPARIN 120 MG/0.8 ML SYRINGE 115 MG SUB-Q ×2 (08:43→20:32)
[2024-11-29] MEDS: PANTOPRAZOLE SODIUM IV 40 MG VIAL IV PUSH (08:43)
[2024-11-29] MEDS: MICAFUNGIN SODIUM 100 MG in SODIUM CHLORIDE 0.9% IV 100 ML IVPB (08:44)
[2024-11-29 09:26] LABS: Alveolar/Arterial O2 Gradient 70.1 mmHg; Carboxyhemoglobin 0.7 % THb (0-2.0); Fractional Inspired Oxygen 30 %; HCO3 ABG 30.0 mEq/l (22.0-26.0); Methemoglobin ABG 0.1 %THb (0-1.5); Oxygen Content ABG 17.6 %vol (16.0-22.0); Oxygen Saturation ABG 97.0 % (95.0-100.0); PCO2 ABG 46.2 mmHg (35.0-45.0); PO2 ABG 89.5 mmHg (80.0-100.0); PO2 FiO2 Ratio Arterial Blood 2.98 %; Reduced Hemoglobin 3.5 %THb (0-5.0)
[2024-11-29 09:30] LABS: Arterial Blood Gas Pressure Support 5 cmH2O; Modified Allen's Test Pass; Site Drawn RIGHT RADIAL
--- NOTE | 2024-11-29 09:34 | WPDINTPN ---
Progress Note: A&P Assessment and Plan (1) Acute hypoxic respiratory failure: Code(s): J96.01 - Acute respiratory failure with hypoxia Status: Acute Assessment and Plan: Acute respiratory failure likely related to SIRS/sepsis -11/22: CTA chest: No large central PE, small right pleural effusion, dependent atelectasis, ascites, free intraperitoneal air in the upper abdomen correlate for some recent surgery -patient was initially placed on 10 L nasal cannula, now on high-flow therapy 60 L flow rate and 77% FiO2 -patient significantly tachypneic, breathing 40+ times a minute, with O2 side of 90-92% -11/23: Intubated in the ICU -chest x-ray, ventilator settings and ABGs reviewed this morning. 09/08 PSV SBT done for close to an hour. RSBI, ABGI and Vitals acceptable. Pt awake and following commands. Will extubate and monitor. NPO for now. -continue bronchodilators -off fentanyl. Continue to wean Precedex -discontinued IV fluids -11/26:responded well to Bumex -11/27: Will diurese again today 11/29 Lasix IV given (2) Septic shock: Code(s): A41.9 - Sepsis, unspecified organism; R65.21 - Severe sepsis with septic shock Status: Acute Assessment and Plan: Patient POD #3, tachypneic with hypoxic respiratory failure, lactic acidosis, increasing WBC count, anion gap metabolic acidosis -initial lactic acids were elevated on 11/24/2023 when patient was brought to the ICU, adequately fluid-resuscitated before patient was taken to the OR -sepsis secondary to ruptured appendicitis -11/22: CT scan of the abdomen and pelvis this morning showed postop changes consider the since surgery likely appendectomy, no abscess identified. Small pleural effusion with dependent atelectasis -11/23: Repeat CT scan of the abdomen and pelvis without contrast showed increasing free intraperitoneal air suspicious for bowel leak. Increasing fluid in the mesentery with ascites involving the perihepatic space. No discrete abscess identified. Increasing consolidation of the lower lobes which may represent atelectasis or pneumonia. Developing small pleural effusions -discussed CT results with surgeon, - 11/23: Exploratory laparotomy with ileocolic resection for bowel perforation (cecal perforation) with spillage of bowel contents in the abdominal cavity -OFF ALL PRESSORS, maintain MAP > 65 mmHg or SBP> 100 mmHg -WEAN stress dose steroids -11/24: Blood cultures negative x2 -11/24: Sputum cultures pending -11/24: Urine cultures no growth -continue Zosyn (11/20) and micafungin (11/24) 11/26: Patient has been febrile, Zosyn was discontinued, meropenem and vancomycin added due to consolidation in the right lung > left long as seen on CT scan as under 11/26: CT brain no acute intracranial hemorrhage or suspicious mass effect 11/26: Bilateral lower extremity venous Dopplers were negative for DVTs 11/28: Bilateral upper venous Dopplers showed DVT of the right subclavian, axillary and brachial veins. (patient does have a right arm PICC line. Fevers possibly due to DVT and pneumonia 11/26/2024: CTA chest/abdomen/pelvis IMPRESSION: No pulmonary embolus. No aortic dissection. Small bilateral pleural effusions, right greater than left with adjacent consolidation, an interval change from prior. Gallbladder distention with mural thickening and surrounding inflammatory change. Right middle and lower lobe nodules, for which follow-up may be performed once patient is beyond this acute phase. No discrete intraperitoneal air is appreciated. Simple free fluid within the dependent portions of the abdomen. 11/29 still has fevers but white count is down. Continue meropenem, vancomycin and micafungin, (3) Status post appendectomy: Onset Date: 11/20/24 Code(s): Z90.49 - Acquired absence of other specified parts of digestive tract Status: Acute Assessment and Plan: 11/20: Discussed with surgery, NG tube will be inserted due to abdominal distension 11/23: Exploratory laparotomy with ileocolic resection for bowel perforation (cecal perforation) with spillage of bowel contents in the abdominal cavity 11/24: Wound VAC placed Treatment plans as above -pain control -11/25: started on TPN after discussing with surgery 11/27: Discussed with surgery, will start trickle tube feeds, started 10 mL, increased to a goal of 20 mL Patient is tolerating trickle tube feeds. Management per General surgery recommendations (4) DVT (deep venous thrombosis): Code(s): I82.409 - Acute embolism and thrombosis of unspecified deep veins of unspecified lower extremity Status: Acute Assessment and Plan: 11/28: Patient continues to have fevers, bilateral upper extremity venous Doppler with evidence of DVT of the right subclavian, axillary and brachial vein -discuss with surgery regarding therapeutic Lovenox to which the agreeable -11/28: Started patient on therapeutic Lovenox -right PICC line in place (5) Hyperglycemia: Code(s): R73.9 - Hyperglycemia, unspecified Status: Acute Assessment and Plan: Related to stress response and/or steroids -Accu-Cheks and sliding scale insulin -continue Lantus Plan DVT prophylaxis: Lovenox Stress ulcer prophylaxis: Protonix Nutrition: TPN, tolerating trickle tube feeds Code Status: Full code Critical Care Time Spent: 32 minutes Discussed with patient's sister GABRIELA Charles, updated her with patient's condition plan of care. I answered all her questions Due to a high probability of clinically significant, life threatening deterioration, the patient required my highest level of preparedness to intervene emergently and I personally spent this critical care time directly and personally managing the patient. This critical care time included obtaining a history; examining the patient; pulse oximetry; ordering and review of studies; arranging urgent treatment with development of a management plan; evaluation of patient's response to treatment; frequent reassessment; and discussions with other providers. It was exclusive of separately billable procedures and treating other patients and teaching time. Please see Assessment and Plan section and the rest of the note for further information on patient assessment and treatment This dictation may have been done utilizing a voice recognition system. Attempts have been made to correct errors. However, there may be uncorrected grammatical, spelling, and recognitions errors present. Subjective Date/time seen: 11/29/24 Overnight events reviewed. febrile overnight Continues to be on mechanical ventilation 8 of PEEP and 30% FiO2 Continues to be on vasopressors Continues to be sedated with Precedex and low-dose fentanyl Other Vitals acceptable Tolerating tube feed at a low rate. Also on TPN Follows commands Review of Systems Review of Systems: ROS unobtainable: Yes unobtainable due to endotracheal tube, unobtainable due to medical condition and unobtainable due to mental status Exam Narrative: General: Intubated and in no acute distress HEENT:? Pupils pinpoint and sluggish, sclera is clear Neck:? Supple Respiratory:? Coarse breath sounds bilaterally, decreased at bases, adequate air entry, no wheezing Cardiac:? S1-S2 is normal, normal sinus rhythm Abdomen:? Abdominal is soft, nondistended, midline incision wound VAC in place, bowel sounds are present Extremities:palpable pedal pulses, warm extremities, edema improving, Neuro:? Intubated, sedated, opens his eyes and follow simple commands with all 4 extremities Skin:? Warm and dry Psych:? Unable to assess at this time Objective Data Vital Signs Vital Signs: Vital Signs - 24 hr 11/28/24 09:42 11/28/24 09:55 11/28/24 10:00 Temperature 37.8 C H 38.2 C H Pulse Rate 71 71 Respiratory Rate 20 21 H Blood Pressure 120/71 Pulse Oximetry 98 Oxygen Delivery Fraction of Inspired Oxygen 11/28/24 10:00 11/28/24 10:00 11/28/24 10:00 Temperature Pulse Rate 62 65 59 L Respiratory Rate 16 18 Blood Pressure Pulse Oximetry Oxygen Delivery Fraction of Inspired Oxygen 11/28/24 10:00 11/28/24 10:15 11/28/24 10:45 Temperature Pulse Rate 69 73 58 L Respiratory Rate 19 19 29 H Blood Pressure Pulse Oximetry Oxygen Delivery Fraction of Inspired Oxygen 11/28/24 10:56 11/28/24 11:00 11/28/24 11:03 Temperature Pulse Rate 59 L 58 L 61 Respiratory Rate 17 16 Blood Pressure Pulse Oximetry 98 Oxygen Delivery Mechanical Ventilation Fraction of Inspired Oxygen 35 11/28/24 11:41 11/28/24 12:00 11/28/24 12:00 Temperature Pulse Rate 56 L 57 L Respiratory Rate 18 Blood Pressure Pulse Oximetry Oxygen Delivery Fraction of Inspired Oxygen 35 11/28/24 12:00 11/28/24 12:00 11/28/24 12:00 Temperature 37.9 C H Pulse Rate 57 L 53 L 61 Respiratory Rate 17 18 18 Blood Pressure 116/73 Pulse Oximetry 99 98 Oxygen Delivery Mechanical Ventilation Fraction of Inspired Oxygen 35 11/28/24 12:00 11/28/24 12:00 11/28/24 13:02 Temperature Pulse Rate 59 L 60 54 L Respiratory Rate 17 17 17 Blood Pressure Pulse Oximetry Oxygen Delivery Fraction of Inspired Oxygen 11/28/24 14:00 11/28/24 14:00 11/28/24 14:00 Temperature Pulse Rate 56 L 56 L 58 L Respiratory Rate 18 18 20 Blood Pressure Pulse Oximetry Oxygen Delivery Fraction of Inspired Oxygen 11/28/24 14:00 11/28/24 14:00 11/28/24 14:00 Temperature 37.4 C Pulse Rate 67 56 L 51 L Respiratory Rate 16 17 Blood Pressure 151/84 H Pulse Oximetry 99 Oxygen Delivery Fraction of Inspired Oxygen 11/28/24 14:20 11/28/24 14:31 11/28/24 14:32 Temperature Pulse Rate 55 L 60 60 Respiratory Rate 18 18 Blood Pressure Pulse Oximetry 98 Oxygen Delivery Mechanical Ventilation Fraction of Inspired Oxygen 35 11/28/24 15:15 11/28/24 15:16 11/28/24 15:28 Temperature Pulse Rate 62 61 58 L Respiratory Rate 17 19 16 Blood Pressure Pulse Oximetry Oxygen Delivery Fraction of Inspired Oxygen 11/28/24 16:00 11/28/24 16:00 11/28/24 16:00 Temperature Pulse Rate 60 56 L 56 L Respiratory Rate 18 18 17 Blood Pressure Pulse Oximetry Oxygen Delivery Fraction of Inspired Oxygen 11/28/24 16:00 11/28/24 16:00 11/28/24 16:00 Temperature 37.4 C Pulse Rate 57 L 57 L Respiratory Rate 18 Blood Pressure 125/80 Pulse Oximetry Oxygen Delivery Fraction of Inspired Oxygen 35 11/28/24 16:00 11/28/24 17:25 11/28/24 17:43 Temperature Pulse Rate 52 L 61 52 L Respiratory Rate 18 18 Blood Pressure Pulse Oximetry 98 98 Oxygen Delivery Mechanical Ventilation Mechanical Ventilation Fraction of Inspired Oxygen 35 35 11/28/24 18:00 11/28/24 18:00 11/28/24 18:53 Temperature 37.4 C Pulse Rate 55 L 50 L 50 L Respiratory Rate 18 19 Blood Pressure 123/71 Pulse Oximetry Oxygen Delivery Fraction of Inspired Oxygen 11/28/24 18:53 11/28/24 18:54 11/28/24 18:54 Temperature Pulse Rate 50 L 52 L 52 L Respiratory Rate 19 18 19 Blood Pressure Pulse Oximetry Oxygen Delivery Fraction of Inspired Oxygen 11/28/24 20:00 11/28/24 20:00 11/28/24 20:00 Temperature 37.4 C Pulse Rate 49 L 49 L Respiratory Rate 17 17 Blood Pressure 143/86 H Pulse Oximetry 100 Oxygen Delivery Fraction of Inspired Oxygen 35 11/28/24 20:00 11/28/24 20:00 11/28/24 20:00 Temperature Pulse Rate 49 L 49 L Respiratory Rate 17 17 Blood Pressure Pulse Oximetry 100 Oxygen Delivery Mechanical Ventilation Fraction of Inspired Oxygen 35 11/28/24 20:00 11/28/24 20:15 11/28/24 20:28 Temperature Pulse Rate 49 L 49 L 49 L Respiratory Rate 20 Blood Pressure Pulse Oximetry 100 Oxygen Delivery Mechanical Ventilation Fraction of Inspired Oxygen 35 11/28/24 20:42 11/28/24 20:42 11/28/24 22:00 Temperature 37.5 C Pulse Rate 55 L 55 L 53 L Respiratory Rate 19 19 17 Blood Pressure 136/83 Pulse Oximetry 99 Oxygen Delivery Fraction of Inspired Oxygen 11/28/24 22:00 11/28/24 22:00 11/28/24 22:00 Temperature Pulse Rate 53 L 53 L 53 L Respiratory Rate 17 17 17 Blood Pressure Pulse Oximetry Oxygen Delivery Fraction of Inspired Oxygen 11/28/24 22:00 11/28/24 22:00 11/28/24 23:15 Temperature Pulse Rate 53 L 49 L Respiratory Rate Blood Pressure Pulse Oximetry 99 Oxygen Delivery Mechanical Ventilation Fraction of Inspired Oxygen 30 30 11/29/24 00:00 11/29/24 00:00 11/29/24 00:00 Temperature 37.5 C Pulse Rate 49 L 49 L 49 L Respiratory Rate 17 17 20 Blood Pressure 134/85 Pulse Oximetry 100 Oxygen Delivery Fraction of Inspired Oxygen 11/29/24 00:00 11/29/24 00:00 11/29/24 00:00 Temperature Pulse Rate 49 L 49 L 49 L Respiratory Rate 20 20 Blood Pressure Pulse Oximetry Oxygen Delivery Fraction of Inspired Oxygen 11/29/24 00:00 11/29/24 00:00 11/29/24 02:00 Temperature 37.7 C H Pulse Rate 52 L Respiratory Rate 23 H Blood Pressure 127/76 Pulse Oximetry 100 99 Oxygen Delivery Mechanical Ventilation Fraction of Inspired Oxygen 30 30 11/29/24 02:00 11/29/24 02:00 11/29/24 02:00 Temperature Pulse Rate 52 L 52 L 52 L Respiratory Rate 25 H 25 H Blood Pressure Pulse Oximetry Oxygen Delivery Fraction of Inspired Oxygen 11/29/24 02:00 11/29/24 02:39 11/29/24 02:39 Temperature Pulse Rate 52 L 52 L 52 L Respiratory Rate 25 H 25 H Blood Pressure Pulse Oximetry 99 Oxygen Delivery Mechanical Ventilation Fraction of Inspired Oxygen 30 11/29/24 03:42 11/29/24 03:42 11/29/24 04:00 Temperature Pulse Rate 57 L 57 L 67 Respiratory Rate 27 H 27 H 29 H Blood Pressure Pulse Oximetry Oxygen Delivery Fraction of Inspired Oxygen 11/29/24 04:00 11/29/24 04:00 11/29/24 04:00 Temperature 37.9 C H Pulse Rate 58 L Respiratory Rate 20 Blood Pressure 143/91 H Pulse Oximetry 99 99 Oxygen Delivery Mechanical Ventilation Fraction of Inspired Oxygen 30 30 11/29/24 04:00 11/29/24 04:00 11/29/24 04:00 Temperature Pulse Rate 58 L 58 L 58 L Respiratory Rate 20 20 Blood Pressure Pulse Oximetry Oxygen Delivery Fraction of Inspired Oxygen 11/29/24 04:50 11/29/24 06:00 11/29/24 06:00 Temperature 38.3 C H Pulse Rate 56 L 54 L 54 L Respiratory Rate 26 H Blood Pressure 120/77 Pulse Oximetry 99 99 Oxygen Delivery Mechanical Ventilation Fraction of Inspired Oxygen 30 11/29/24 06:00 11/29/24 06:00 11/29/24 06:00 Temperature Pulse Rate 54 L 54 L 54 L Respiratory Rate 26 H 26 H 26 H Blood Pressure Pulse Oximetry Oxygen Delivery Fraction of Inspired Oxygen 11/29/24 06:14 11/29/24 06:30 11/29/24 06:34 Temperature 38.3 C H Pulse Rate 56 L 56 L Respiratory Rate 28 H 22 H Blood Pressure Pulse Oximetry Oxygen Delivery Fraction of Inspired Oxygen 11/29/24 06:34 11/29/24 07:15 11/29/24 07:39 Temperature 38.3 C H 38.5 C H Pulse Rate 56 L 58 L Respiratory Rate 22 H 14 Blood Pressure 119/86 Pulse Oximetry 100 Oxygen Delivery Fraction of Inspired Oxygen 11/29/24 07:55 11/29/24 07:56 11/29/24 08:00 Temperature Pulse Rate 58 L 58 L 76 Respiratory Rate 16 16 Blood Pressure Pulse Oximetry 99 Oxygen Delivery Mechanical Ventilation Fraction of Inspired Oxygen 30 11/29/24 08:00 11/29/24 08:00 11/29/24 08:00 Temperature Pulse Rate 63 63 Respiratory Rate 16 Blood Pressure Pulse Oximetry 99 Oxygen Delivery Mechanical Ventilation Fraction of Inspired Oxygen 30 30 11/29/24 08:40 11/29/24 08:48 Temperature Pulse Rate 86 80 Respiratory Rate 20 20 Blood Pressure Pulse Oximetry Oxygen Delivery Fraction of Inspired Oxygen Intake/Output Intake/Output: Intake & Output 11/26/24 11/27/24 11/28/24 11/29/24 23:59 23:59 23:59 23:59 Intake Total 2657.2 2707.3 4352.0 1030.9 Output Total 3295 4050 4050 1050 Balance -637.8 -1342.7 302.0 -19.1 Meds/Results Medications: Active Medications Generic Name Dose Route Start Last Admin Trade Name Freq PRN Reason Stop Dose Admin Acetaminophen 650 mg 11/28/24 07:42 11/29/24 06:14 Acetaminophen Elixir 325 Mg/10.15 Ml Udc PO 650 mg Q4H PRN Administration Mild Pain (1-3) or Fever Dextrose 12.5 gm 11/24/24 08:03 Dextrose 50% 25 Gm/50 Ml Syringe IV PUSH PRN PRN Hypoglycemia Protocol Enoxaparin Sodium 115 mg 11/28/24 21:00 11/29/24 08:43 Enoxaparin 120 Mg/0.8 Ml Syringe SUB-Q 115 mg Q12HR TAMICA Administration Glucagon 1 mg 11/24/24 08:03 Glucagon For Inj 1 Mg Vial IM PRN PRN Hypoglycemia Protocol Glucose 15 gm 11/24/24 08:03 Glucose Oral Gel 15 Gm Of Glucse In 37.5 Gm Tube PO PRN PRN Hypoglycemia Protocol Fentanyl Citrate 2,500 mcg in 250 mls @ 0 mls/hr 11/23/24 14:05 11/29/24 07:55 Fentanyl 2,500 Mcg/Ns 250 Ml IV CONT 0 mcg/hr .Q0M TAMICA 0 mls/hr Titration Protocol 0 MCG/HR Midazolam HCl 100 mg in 100 mls @ 0 mls/hr 11/23/24 21:45 11/29/24 06:30 Versed 100 Mg/Ns 100 Ml IV CONT 0 mg/hr .Q0M TAMICA 0 mls/hr Titration Protocol Micafungin Sodium 100 mg/ 100 mls @ 100 mls/hr 11/24/24 09:00 11/29/24 08:44 Sodium Chloride IVPB 12/01/24 08:59 100 mls/hr DAILY TAMICA Administration Dextrose 1,000 mls @ 100 mls/hr 11/24/24 08:03 Dextrose 5% 1,000 Ml IVPB PRN PRN Hypoglycemia Protocol Multivitamins 1.25 ml/ 1,002.5 mls @ 40 mls/hr 11/25/24 15:00 11/28/24 15:18 Multivitamins 1.25 ml/ Amino IV CONT 40 mls/hr Acids/Dextrose .Q24H TAMICA Administration Protocol Dextrose 1,000 mls @ 50 mls/hr 11/25/24 14:02 Dextrose 10% IV CONT .Q20H PRN if PN is interrupted Fat Emulsion Intravenous 250 mls @ 20.833 mls/hr 11/25/24 15:00 11/29/24 03:20 Lipids 20% IVPB Infused Q24H TAMICA Infusion Meropenem 1 gm/ Sodium 100 mls @ 200 mls/hr 11/26/24 15:00 11/29/24 06:41 Chloride IVPB Infused Q8H TAMICA Infusion Dexmedetomidine HCl 400 mcg in 100 mls @ 20.493 mls/hr 11/28/24 08:20 11/29/24 07:56 Precedex 400 Mcg/100 Ml IV CONT 0.02 mcg/kg/hr .Q4H53M TAMICA 0.7 mls/hr Titration Protocol 0.7 MCG/KG/HR Vancomycin HCl 2,000 mg in 500 mls @ 250 mls/hr 11/29/24 06:00 11/29/24 06:39 Vancomycin 2,000 Mg/Ns 500 Ml IVPB 250 mls/hr Q8H TAMICA Administration Insulin Aspart 3 - 6 units 11/24/24 09:00 11/29/24 08:43 Insulin Aspart (*Bkc) 100 Units/Ml SUB-Q Not Given Q4H TAMICA Protocol Insulin Glargine 16 units 11/26/24 09:00 11/29/24 07:49 Insulin Glargine (*Bkc) 100 Units/Ml SUB-Q 16 units DAILY TAMICA Administration Ipratropium [place] 0.5 mg 11/23/24 14:00 11/29/24 08:39 Ipratropium Br 0.02% Inh Soln 0.5 Mg/2.5 Ml Vial INHALATION 0.5 mg Q6HRT TAMICA Administration Levalbuterol HCl 0.63 mg 11/23/24 14:00 11/29/24 08:40 Levalbuterol Neb 1.25 Mg/3 Ml INHALATION 0.63 mg Q6HRT TAMICA Administration Midazolam HCl 2 mg 11/23/24 21:45 11/29/24 04:01 Midazolam Hcl (*Crx) 2 Mg/2 Ml Vial IV PUSH 2 mg Q5M PRN Administration ventilator asynchrony Multi-Ingred Cream/Lotion/Oil/Oint 1 applic 11/23/24 21:00 11/29/24 08:44 Mineral Oil/White Petrolatum Ointment EACH EYE Not Given Q12HR TAMICA Pantoprazole Sodium 40 mg 11/24/24 09:00 11/29/24 08:43 Pantoprazole Sodium Iv 40 Mg Vial IV PUSH 40 mg QAM TAMICA Administration Sodium Chloride 10 ml 11/23/24 14:00 11/29/24 06:14 Central Line Flush IV PUSH 10 ml Q8HR TAMICA Administration Sodium Chloride 10 ml 11/23/24 13:39 Central Line Flush IV PUSH PRN PRN with TPN bag changes Sodium Chloride 20 ml 11/23/24 13:39 Central Line Flush IV PUSH PRN PRN after blood draws Radiology Results: ITS Impressions Chest CTA 11/23/24 05:53 IMPRESSION: 1. Free intraperitoneal air in the upper abdomen. Correlate for recent surgery. In the absence of known surgery this is most likely secondary to bowel perforation. Clinically correlate. 2: No large central pulmonary embolism. Limited evaluation of the secondary and tertiary pulmonary arteries. 3: Small right pleural effusion. Dependent atelectasis. 4: Ascites. Abdomen/Pelvis CT 11/23/24 13:00 IMPRESSION: 1. Increasing free intraperitoneal air 11/22/2024, suspicious for bowel leak. Increasing fluid in the mesentery with ascites involving the perihepatic space. No discrete abscess identified. Consider correlation with contrast-enhanced CT abdomen. 2: Increasing consolidation of the lower lobes which may represent atelectasis or pneumonia. 3: Developing small pleural effusions. Abdomen X-Ray 11/23/24 14:04 IMPRESSION: 1: NG tube tip in the stomach. 2: Bibasilar airspace disease, edema versus pneumonia. Head CT 11/26/24 14:47 Impression: No acute intracranial hemorrhage or suspicious mass effect. Chest/Abdomen/Pelvis CTA 11/26/24 14:58 IMPRESSION: No pulmonary embolus. No aortic dissection. Small bilateral pleural effusions, right greater than left with adjacent consolidation, an interval change from prior. Gallbladder distention with mural thickening and surrounding inflammatory change. Right middle and lower lobe nodules, for which follow-up may be performed once patient is beyond this acute phase. No discrete intraperitoneal air is appreciated. Simple free fluid within the dependent portions of the abdomen. Venous Doppler Study 11/28/24 11:19 IMPRESSION: 1. Deep venous thrombosis of the right subclavian, axillary and brachial veins. Dr. Kam Gongora discussed with the delinquent account clerk]Kurt Castaneda at 11/28/2024 11:23 CDT. Chest X-Ray 11/29/24 06:36 Impression: 1: Stable bilateral airspace disease which may represent pneumonia, edema and/or atelectasis. 2: Small pleural effusions. Labs Labs: Laboratory Results - last 24 hr 11/27/24 11/28/24 11/28/24 04:33 13:06 13:44 WBC RBC Hgb Hct MCV MCH MCHC RDW Plt Count MPV Immature Gran % (Auto) Neut % (Auto) Lymph % (Auto) [place] % (Auto) Eos % (Auto) Baso % (Auto) Lymph # (Auto) [place] # (Auto) Eos # (Auto) Baso # (Auto) Abs Immat Gran (auto) Absolute Neuts (auto) Absolute Nucleated RBC Nucleated RBC % Puncture Site ABG pH ABG pCO2 ABG pO2 ABG PO2/FiO2 Ratio ABG HCO3 ABG O2 Saturation ABG O2 Content ABG Base Excess A-a Gradient Oxyhemoglobin Carboxyhemoglobin Methemoglobin Reduced Hemoglobin Total Hemoglobin O2 Delivery Device O2 Liters/Min Minute Volume Vent Rate 20 Vent Mode Cmv FiO2 Tidal Volume 450 PEEP 12 Peak Inspir Pressure Pressure Support Sodium Potassium Chloride Carbon Dioxide Anion Gap BUN Creatinine Estim Creat Clear Calc Estimated GFR Glucose POC Capillary Glucose 209 H Calcium Phosphorus Triglycerides 288 H Vancomycin Trough 11/28/24 11/28/24 11/29/24 18:57 21:36 00:06 WBC RBC Hgb Hct MCV MCH MCHC RDW Plt Count MPV Immature Gran % (Auto) Neut % (Auto) Lymph % (Auto) [place] % (Auto) Eos % (Auto) Baso % (Auto) Lymph # (Auto) [place] # (Auto) Eos # (Auto) Baso # (Auto) Abs Immat Gran (auto) Absolute Neuts (auto) Absolute Nucleated RBC Nucleated RBC % Puncture Site ABG pH ABG pCO2 ABG pO2 ABG PO2/FiO2 Ratio ABG HCO3 ABG O2 Saturation ABG O2 Content ABG Base Excess A-a Gradient Oxyhemoglobin Carboxyhemoglobin Methemoglobin Reduced Hemoglobin Total Hemoglobin O2 Delivery Device O2 Liters/Min Minute Volume Vent Rate Vent Mode FiO2 Tidal Volume PEEP Peak Inspir Pressure Pressure Support Sodium Potassium Chloride Carbon Dioxide Anion Gap BUN Creatinine Estim Creat Clear Calc Estimated GFR Glucose POC Capillary Glucose 213 H 177 H 207 H Calcium Phosphorus Triglycerides Vancomycin Trough 11/29/24 11/29/24 11/29/24 04:34 04:58 07:17 WBC 13.6 H RBC 3.38 L Hgb 10.7 L Hct 33.0 L MCV 97.6 MCH 31.7 MCHC 32.4 RDW 12.6 Plt Count 201 MPV 10.5 H Immature Gran % (Auto) 4.8 H Neut % (Auto) 80.0 H Lymph % (Auto) 9.0 L [place] % (Auto) 4.1 Eos % (Auto) 2.0 Baso % (Auto) 0.1 L Lymph # (Auto) 1.22 [place] # (Auto) 0.6 Eos # (Auto) 0.3 Baso # (Auto) 0.0 Abs Immat Gran (auto) 0.65 H Absolute Neuts (auto) 10.9 H Absolute Nucleated RBC 0.000 Nucleated RBC % 0.0 Puncture Site Left radial ABG pH 7.499 H ABG pCO2 37.1 ABG pO2 87.8 ABG PO2/FiO2 Ratio 2.93 ABG HCO3 28.2 H ABG O2 Saturation 97.4 ABG O2 Content 16.2 ABG Base Excess 4.9 A-a Gradient 82.5 Oxyhemoglobin 96.3 Carboxyhemoglobin 0.4 Methemoglobin 0.3 Reduced Hemoglobin 3.0 Total Hemoglobin 11.9 L O2 Delivery Device Ventilator O2 Liters/Min Not Reportable Minute Volume Not Reportable Vent Rate 18 Vent Mode Cmv FiO2 30 Tidal Volume 450 PEEP 8 Peak Inspir Pressure Not Reportable Pressure Support Not Reportable Sodium 138 Potassium 3.5 Chloride 108 H Carbon Dioxide 29 Anion Gap 1 L BUN 27 H Creatinine 0.60 L Estim Creat Clear Calc 152 Estimated GFR > 60 Glucose 190 H POC Capillary Glucose 197 H Calcium 7.8 L Phosphorus 2.3 L Triglycerides Vancomycin Trough 12.9 11/29/24 09:21 WBC RBC Hgb Hct MCV MCH MCHC RDW Plt Count MPV Immature Gran % (Auto) Neut % (Auto) Lymph % (Auto) [place] % (Auto) Eos % (Auto) Baso % (Auto) Lymph # (Auto) [place] # (Auto) Eos # (Auto) Baso # (Auto) Abs Immat Gran (auto) Absolute Neuts (auto) Absolute Nucleated RBC Nucleated RBC % Puncture Site Right radial ABG pH 7.430 ABG pCO2 46.2 H ABG pO2 89.5 ABG PO2/FiO2 Ratio 2.98 ABG HCO3 30.0 H ABG O2 Saturation 97.0 ABG O2 Content 17.6 ABG Base Excess 4.9 A-a Gradient 70.1 Oxyhemoglobin 95.7 Carboxyhemoglobin 0.7 Methemoglobin 0.1 Reduced Hemoglobin 3.5 Total Hemoglobin 13.0 O2 Delivery Device Ventilator O2 Liters/Min Not Reportable Minute Volume Not Reportable Vent Rate Not Reportable Vent Mode Spontaneous FiO2 30 Tidal Volume Not Reportable PEEP 8 Peak Inspir Pressure Not Reportable Pressure Support 5 Sodium Potassium Chloride Carbon Dioxide Anion Gap BUN Creatinine Estim Creat Clear Calc Estimated GFR Glucose POC Capillary Glucose Calcium Phosphorus Triglycerides Vancomycin Trough Quality VTE Prophylaxis VTE prophylaxis: pharmacologic ordered
--- NOTE | 2024-11-29 11:33 | PM.PNGS ---
Progress Note: A&P Assessment and Plan (1) Perforated abdominal viscus: Code(s): R19.8 - Other specified symptoms and signs involving the digestive system and abdomen Status: Acute Assessment and Plan: Patient extubated this morning. Sitting up in bed, seems to be doing okay. Patient is still febrile and tachypneic. Possible fecal and liquid in wound VAC canister, with serosanguineous fluid primarily filling the rest of the canister. WBC continues to decrease, now at 13.6. Will evaluate the wound for colocutaneous fistula tomorrow during wound VAC change. Continue vancomycin, as well as all other current medical treatments. (2) Severe sepsis: Code(s): A41.9 - Sepsis, unspecified organism; R65.20 - Severe sepsis without septic shock Status: Acute Assessment and Plan: improving (3) Acute hypoxic respiratory failure: Code(s): J96.01 - Acute respiratory failure with hypoxia Status: Acute Assessment and Plan: Patient extubated today. Appears to be doing well. O2 98. (4) Open abdominal incision with drainage: Qualifiers: Encounter type: subsequent encounter Qualified Code(s): T81.321D - Disruption or dehiscence of closure of internal operation (surgical) wound of abdominal wall muscle or fascia, subsequent encounter Code(s): T81.321A - Disruption or dehiscence of closure of internal operation (surgical) wound of abdominal wall muscle or fascia, initial encounter Status: Acute Assessment and Plan: Fecal odor and drainage suspicious for fecal material noted in wound VAC canister yesterday. Upon examination today, the wound VAC appears to have some possible fascicular and material concentrated at the bottom, with serosanguineous fluid primarily filling the rest of the canister. We will continue to follow closely and evaluate further for colocutaneous fistula tomorrow during wound VAC change. (5) DVT (deep venous thrombosis): Code(s): I82.409 - Acute embolism and thrombosis of unspecified deep veins of unspecified lower extremity Status: Acute Assessment and Plan: right arm and subclavian veins, likely due to PICC line. Continue Lovenox 115 mg. Plan Discussed patient's case and plan of care with Dr. Cortez. Subjective Subjective Date/Time Seen: 11/29/24 11:33 Interval history: Patient extubated this morning. Sitting in bed doing well. States that he feels like he needs to have a bowel movement.WBC continues to decrease at 13.6. He was noted to have DVTs of right subclavian, axillary, and brachial veins. He has been continued on Lovenox. Patient remains febrile at 1:01 a.m. 0.3. Slightly tachy at 22 breaths per minute. Exam GI: Inspection: distended, incision (odor, fecal staining lower 1/3) and obesity GI Palp: Yes Soft to palpation and No Guarding due to palpation present (GI) Other: Wound VAC dressing in place with tight seal. Vacuum functioning properly. Canister appears to have some thick fluid concentrated to the bottom, possibly liquid stool, with serosanguineous fluid atop of this filling the rest of the canister. Objective Data Vital Signs Vital Signs: Vital Signs - 24 hr 11/28/24 11:41 11/28/24 12:00 11/28/24 12:00 Temperature Pulse Rate 56 L 57 L Respiratory Rate 18 Blood Pressure Pulse Oximetry Oxygen Delivery Oxygen Flow Rate Fraction of Inspired Oxygen 35 11/28/24 12:00 11/28/24 12:00 11/28/24 12:00 Temperature 100.3 F H Pulse Rate 57 L 53 L 61 Respiratory Rate 17 18 18 Blood Pressure 116/73 Pulse Oximetry 99 98 Oxygen Delivery Mechanical Ventilation Oxygen Flow Rate Fraction of Inspired Oxygen 35 11/28/24 12:00 11/28/24 12:00 11/28/24 13:02 Temperature Pulse Rate 59 L 60 54 L Respiratory Rate 17 17 17 Blood Pressure Pulse Oximetry Oxygen Delivery Oxygen Flow Rate Fraction of Inspired Oxygen 11/28/24 14:00 11/28/24 14:00 11/28/24 14:00 Temperature Pulse Rate 56 L 56 L 58 L Respiratory Rate 18 18 20 Blood Pressure Pulse Oximetry Oxygen Delivery Oxygen Flow Rate Fraction of Inspired Oxygen 11/28/24 14:00 11/28/24 14:00 11/28/24 14:00 Temperature 99.4 F Pulse Rate 67 56 L 51 L Respiratory Rate 16 17 Blood Pressure 151/84 H Pulse Oximetry 99 Oxygen Delivery Oxygen Flow Rate Fraction of Inspired Oxygen 11/28/24 14:20 11/28/24 14:31 11/28/24 14:32 Temperature Pulse Rate 55 L 60 60 Respiratory Rate 18 18 Blood Pressure Pulse Oximetry 98 Oxygen Delivery Mechanical Ventilation Oxygen Flow Rate Fraction of Inspired Oxygen 35 11/28/24 15:15 11/28/24 15:16 11/28/24 15:28 Temperature Pulse Rate 62 61 58 L Respiratory Rate 17 19 16 Blood Pressure Pulse Oximetry Oxygen Delivery Oxygen Flow Rate Fraction of Inspired Oxygen 11/28/24 16:00 11/28/24 16:00 11/28/24 16:00 Temperature Pulse Rate 60 56 L 56 L Respiratory Rate 18 18 17 Blood Pressure Pulse Oximetry Oxygen Delivery Oxygen Flow Rate Fraction of Inspired Oxygen 11/28/24 16:00 11/28/24 16:00 11/28/24 16:00 Temperature 99.4 F Pulse Rate 57 L 57 L Respiratory Rate 18 Blood Pressure 125/80 Pulse Oximetry Oxygen Delivery Oxygen Flow Rate Fraction of Inspired Oxygen 35 11/28/24 16:00 11/28/24 17:25 11/28/24 17:43 Temperature Pulse Rate 52 L 61 52 L Respiratory Rate 18 18 Blood Pressure Pulse Oximetry 98 98 Oxygen Delivery Mechanical Ventilation Mechanical Ventilation Oxygen Flow Rate Fraction of Inspired Oxygen 35 35 11/28/24 18:00 11/28/24 18:00 11/28/24 18:53 Temperature 99.3 F Pulse Rate 55 L 50 L 50 L Respiratory Rate 18 19 Blood Pressure 123/71 Pulse Oximetry Oxygen Delivery Oxygen Flow Rate Fraction of Inspired Oxygen 11/28/24 18:53 11/28/24 18:54 11/28/24 18:54 Temperature Pulse Rate 50 L 52 L 52 L Respiratory Rate 19 18 19 Blood Pressure Pulse Oximetry Oxygen Delivery Oxygen Flow Rate Fraction of Inspired Oxygen 11/28/24 20:00 11/28/24 20:00 11/28/24 20:00 Temperature 99.4 F Pulse Rate 49 L 49 L Respiratory Rate 17 17 Blood Pressure 143/86 H Pulse Oximetry 100 Oxygen Delivery Oxygen Flow Rate Fraction of Inspired Oxygen 35 11/28/24 20:00 11/28/24 20:00 11/28/24 20:00 Temperature Pulse Rate 49 L 49 L Respiratory Rate 17 17 Blood Pressure Pulse Oximetry 100 Oxygen Delivery Mechanical Ventilation Oxygen Flow Rate Fraction of Inspired Oxygen 35 11/28/24 20:00 11/28/24 20:15 11/28/24 20:28 Temperature Pulse Rate 49 L 49 L 49 L Respiratory Rate 20 Blood Pressure Pulse Oximetry 100 Oxygen Delivery Mechanical Ventilation Oxygen Flow Rate Fraction of Inspired Oxygen 35 11/28/24 20:42 11/28/24 20:42 11/28/24 22:00 Temperature 99.5 F Pulse Rate 55 L 55 L 53 L Respiratory Rate 19 19 17 Blood Pressure 136/83 Pulse Oximetry 99 Oxygen Delivery Oxygen Flow Rate Fraction of Inspired Oxygen 11/28/24 22:00 11/28/24 22:00 11/28/24 22:00 Temperature Pulse Rate 53 L 53 L 53 L Respiratory Rate 17 17 17 Blood Pressure Pulse Oximetry Oxygen Delivery Oxygen Flow Rate Fraction of Inspired Oxygen 11/28/24 22:00 11/28/24 22:00 11/28/24 23:15 Temperature Pulse Rate 53 L 49 L Respiratory Rate Blood Pressure Pulse Oximetry 99 Oxygen Delivery Mechanical Ventilation Oxygen Flow Rate Fraction of Inspired Oxygen 30 30 11/29/24 00:00 11/29/24 00:00 11/29/24 00:00 Temperature 99.5 F Pulse Rate 49 L 49 L 49 L Respiratory Rate 17 17 20 Blood Pressure 134/85 Pulse Oximetry 100 Oxygen Delivery Oxygen Flow Rate Fraction of Inspired Oxygen 11/29/24 00:00 11/29/24 00:00 11/29/24 00:00 Temperature Pulse Rate 49 L 49 L 49 L Respiratory Rate 20 20 Blood Pressure Pulse Oximetry Oxygen Delivery Oxygen Flow Rate Fraction of Inspired Oxygen 11/29/24 00:00 11/29/24 00:00 11/29/24 02:00 Temperature 99.8 F H Pulse Rate 52 L Respiratory Rate 23 H Blood Pressure 127/76 Pulse Oximetry 100 99 Oxygen Delivery Mechanical Ventilation Oxygen Flow Rate Fraction of Inspired Oxygen 30 30 11/29/24 02:00 11/29/24 02:00 11/29/24 02:00 Temperature Pulse Rate 52 L 52 L 52 L Respiratory Rate 25 H 25 H Blood Pressure Pulse Oximetry Oxygen Delivery Oxygen Flow Rate Fraction of Inspired Oxygen 11/29/24 02:00 11/29/24 02:39 11/29/24 02:39 Temperature Pulse Rate 52 L 52 L 52 L Respiratory Rate 25 H 25 H Blood Pressure Pulse Oximetry 99 Oxygen Delivery Mechanical Ventilation Oxygen Flow Rate Fraction of Inspired Oxygen 30 11/29/24 03:42 11/29/24 03:42 11/29/24 04:00 Temperature Pulse Rate 57 L 57 L 67 Respiratory Rate 27 H 27 H 29 H Blood Pressure Pulse Oximetry Oxygen Delivery Oxygen Flow Rate Fraction of Inspired Oxygen 11/29/24 04:00 11/29/24 04:00 11/29/24 04:00 Temperature 100.3 F H Pulse Rate 58 L Respiratory Rate 20 Blood Pressure 143/91 H Pulse Oximetry 99 99 Oxygen Delivery Mechanical Ventilation Oxygen Flow Rate Fraction of Inspired Oxygen 30 30 11/29/24 04:00 11/29/24 04:00 11/29/24 04:00 Temperature Pulse Rate 58 L 58 L 58 L Respiratory Rate 20 20 Blood Pressure Pulse Oximetry Oxygen Delivery Oxygen Flow Rate Fraction of Inspired Oxygen 11/29/24 04:50 11/29/24 06:00 11/29/24 06:00 Temperature 100.9 F H Pulse Rate 56 L 54 L 54 L Respiratory Rate 26 H Blood Pressure 120/77 Pulse Oximetry 99 99 Oxygen Delivery Mechanical Ventilation Oxygen Flow Rate Fraction of Inspired Oxygen 30 11/29/24 06:00 11/29/24 06:00 11/29/24 06:00 Temperature Pulse Rate 54 L 54 L 54 L Respiratory Rate 26 H 26 H 26 H Blood Pressure Pulse Oximetry Oxygen Delivery Oxygen Flow Rate Fraction of Inspired Oxygen 11/29/24 06:14 11/29/24 06:30 11/29/24 06:34 Temperature 101.0 F H Pulse Rate 56 L 56 L Respiratory Rate 28 H 22 H Blood Pressure Pulse Oximetry Oxygen Delivery Oxygen Flow Rate Fraction of Inspired Oxygen 11/29/24 06:34 11/29/24 07:15 11/29/24 07:39 Temperature 101 F H 101.3 F H Pulse Rate 56 L 58 L Respiratory Rate 22 H 14 Blood Pressure 119/86 Pulse Oximetry 100 Oxygen Delivery Oxygen Flow Rate Fraction of Inspired Oxygen 11/29/24 07:55 11/29/24 07:56 11/29/24 08:00 Temperature Pulse Rate 58 L 58 L 76 Respiratory Rate 16 16 Blood Pressure Pulse Oximetry 99 Oxygen Delivery Mechanical Ventilation Oxygen Flow Rate Fraction of Inspired Oxygen 30 11/29/24 08:00 11/29/24 08:00 11/29/24 08:00 Temperature Pulse Rate 63 63 Respiratory Rate 16 Blood Pressure Pulse Oximetry 99 Oxygen Delivery Mechanical Ventilation Oxygen Flow Rate Fraction of Inspired Oxygen 30 30 11/29/24 08:40 11/29/24 08:48 11/29/24 09:35 Temperature Pulse Rate 86 80 65 Respiratory Rate 20 20 20 Blood Pressure Pulse Oximetry 96 Oxygen Delivery Oxygen Flow Rate 2 Fraction of Inspired Oxygen 28 11/29/24 10:00 11/29/24 10:00 11/29/24 10:00 Temperature 101.3 F H Pulse Rate 60 60 60 Respiratory Rate 20 25 H Blood Pressure 104/66 Pulse Oximetry 98 Oxygen Delivery Oxygen Flow Rate Fraction of Inspired Oxygen 11/29/24 11:00 Temperature Pulse Rate 63 Respiratory Rate 22 H Blood Pressure Pulse Oximetry Oxygen Delivery Oxygen Flow Rate Fraction of Inspired Oxygen Intake/Output Intake/Output: Intake & Output 11/26/24 11/27/24 11/28/24 11/29/24 23:59 23:59 23:59 23:59 Intake Total 2657.2 2707.3 4352.0 1087.8 Output Total 3295 4050 4050 1050 Balance -637.8 -1342.7 302.0 37.8 Meds/Results Medications: Active Medications Generic Name Dose Route Start Last Admin Trade Name Freq PRN Reason Stop Dose Admin Acetaminophen 650 mg 11/29/24 09:42 Acetaminophen 325 Mg Tablet PO Q4H PRN Mild Pain (1-3) or Fever Hydrocodone Bitart/Acetaminophen 1 tab 11/29/24 09:42 Hydrocodone/Acetaminophen (*Crx) 5-325 Mg Tablet PO Q4H PRN Pain Rated 4-6 Dextrose 12.5 gm 11/24/24 08:03 Dextrose 50% 25 Gm/50 Ml Syringe IV PUSH PRN PRN Hypoglycemia Protocol Enoxaparin Sodium 115 mg 11/28/24 21:00 11/29/24 08:43 Enoxaparin 120 Mg/0.8 Ml Syringe SUB-Q 115 mg Q12HR TAMICA Administration Glucagon 1 mg 11/24/24 08:03 Glucagon For Inj 1 Mg Vial IM PRN PRN Hypoglycemia Protocol Glucose 15 gm 11/24/24 08:03 Glucose Oral Gel 15 Gm Of Glucse In 37.5 Gm Tube PO PRN PRN Hypoglycemia Protocol Micafungin Sodium 100 mg/ 100 mls @ 100 mls/hr 11/24/24 09:00 11/29/24 08:44 Sodium Chloride IVPB 12/01/24 08:59 100 mls/hr DAILY TAMICA Administration Dextrose 1,000 mls @ 100 mls/hr 11/24/24 08:03 Dextrose 5% 1,000 Ml IVPB PRN PRN Hypoglycemia Protocol Multivitamins 1.25 ml/ 1,002.5 mls @ 40 mls/hr 11/25/24 15:00 11/28/24 15:18 Multivitamins 1.25 ml/ Amino IV CONT 40 mls/hr Acids/Dextrose .Q24H TAMICA Administration Protocol Dextrose 1,000 mls @ 50 mls/hr 11/25/24 14:02 Dextrose 10% IV CONT .Q20H PRN if PN is interrupted Fat Emulsion Intravenous 250 mls @ 20.833 mls/hr 11/25/24 15:00 11/29/24 03:20 Lipids 20% IVPB Infused Q24H TAMICA Infusion Meropenem 1 gm/ Sodium 100 mls @ 200 mls/hr 11/26/24 15:00 11/29/24 06:41 Chloride IVPB Infused Q8H TAMICA Infusion Dexmedetomidine HCl 400 mcg in 100 mls @ 0 mls/hr 11/28/24 08:20 11/29/24 11:00 Precedex 400 Mcg/100 Ml IV CONT 0 mcg/kg/hr .Q0M TAMICA 0 mls/hr Titration Protocol Vancomycin HCl 2,000 mg in 500 mls @ 250 mls/hr 11/29/24 06:00 11/29/24 06:39 Vancomycin 2,000 Mg/Ns 500 Ml IVPB 250 mls/hr Q8H TAMICA Administration Insulin Aspart 3 - 6 units 11/24/24 09:00 11/29/24 08:43 Insulin Aspart (*Bkc) 100 Units/Ml SUB-Q Not Given Q4H TAMICA Protocol Insulin Glargine 16 units 11/26/24 09:00 11/29/24 07:49 Insulin Glargine (*Bkc) 100 Units/Ml SUB-Q 16 units DAILY TAMICA Administration Ipratropium [place] 0.5 mg 11/23/24 14:00 11/29/24 08:39 Ipratropium Br 0.02% Inh Soln 0.5 Mg/2.5 Ml Vial INHALATION 0.5 mg Q6HRT TAMICA Administration Levalbuterol HCl 0.63 mg 11/23/24 14:00 11/29/24 08:40 Levalbuterol Neb 1.25 Mg/3 Ml INHALATION 0.63 mg Q6HRT TAMICA Administration Midazolam HCl 2 mg 11/23/24 21:45 11/29/24 04:01 Midazolam Hcl (*Crx) 2 Mg/2 Ml Vial IV PUSH 2 mg Q5M PRN Administration ventilator asynchrony Morphine Sulfate 4 mg 11/29/24 09:42 Morphine Sulfate (*Crx) 4 Mg/Ml Inj IV PUSH Q2H PRN Pain Rated 7-10 Multi-Ingred Cream/Lotion/Oil/Oint 1 applic 11/23/24 21:00 11/29/24 08:44 Mineral Oil/White Petrolatum Ointment EACH EYE Not Given Q12HR TAMICA Pantoprazole Sodium 40 mg 11/24/24 09:00 11/29/24 08:43 Pantoprazole Sodium Iv 40 Mg Vial IV PUSH 40 mg QAM TAMICA Administration Sodium Chloride 10 ml 11/23/24 14:00 11/29/24 06:14 Central Line Flush IV PUSH 10 ml Q8HR TAMICA Administration Sodium Chloride 10 ml 11/23/24 13:39 Central Line Flush IV PUSH PRN PRN with TPN bag changes Sodium Chloride 20 ml 11/23/24 13:39 Central Line Flush IV PUSH PRN PRN after blood draws Radiology Results: ITS Impressions Chest CTA 11/23/24 05:53 IMPRESSION: 1. Free intraperitoneal air in the upper abdomen. Correlate for recent surgery. In the absence of known surgery this is most likely secondary to bowel perforation. Clinically correlate. 2: No large central pulmonary embolism. Limited evaluation of the secondary and tertiary pulmonary arteries. 3: Small right pleural effusion. Dependent atelectasis. 4: Ascites. Abdomen/Pelvis CT 11/23/24 13:00 IMPRESSION: 1. Increasing free intraperitoneal air 11/22/2024, suspicious for bowel leak. Increasing fluid in the mesentery with ascites involving the perihepatic space. No discrete abscess identified. Consider correlation with contrast-enhanced CT abdomen. 2: Increasing consolidation of the lower lobes which may represent atelectasis or pneumonia. 3: Developing small pleural effusions. Abdomen X-Ray 11/23/24 14:04 IMPRESSION: 1: NG tube tip in the stomach. 2: Bibasilar airspace disease, edema versus pneumonia. Head CT 11/26/24 14:47 Impression: No acute intracranial hemorrhage or suspicious mass effect. Chest/Abdomen/Pelvis CTA 11/26/24 14:58 IMPRESSION: No pulmonary embolus. No aortic dissection. Small bilateral pleural effusions, right greater than left with adjacent consolidation, an interval change from prior. Gallbladder distention with mural thickening and surrounding inflammatory change. Right middle and lower lobe nodules, for which follow-up may be performed once patient is beyond this acute phase. No discrete intraperitoneal air is appreciated. Simple free fluid within the dependent portions of the abdomen. Venous Doppler Study 11/28/24 11:19 IMPRESSION: 1. Deep venous thrombosis of the right subclavian, axillary and brachial veins. Dr. Kam Gongora discussed with the passenger booking clerk]Kurt Castaneda at 11/28/2024 11:23 CDT. Chest X-Ray 11/29/24 06:36 Impression: 1: Stable bilateral airspace disease which may represent pneumonia, edema and/or atelectasis. 2: Small pleural effusions. Labs Labs: Laboratory Results - last 24 hr 11/27/24 11/28/24 11/28/24 04:33 13:06 13:44 WBC RBC Hgb Hct MCV MCH MCHC RDW Plt Count MPV Immature Gran % (Auto) Neut % (Auto) Lymph % (Auto) [place] % (Auto) Eos % (Auto) Baso % (Auto) Lymph # (Auto) [place] # (Auto) Eos # (Auto) Baso # (Auto) Abs Immat Gran (auto) Absolute Neuts (auto) Absolute Nucleated RBC Nucleated RBC % Puncture Site ABG pH ABG pCO2 ABG pO2 ABG PO2/FiO2 Ratio ABG HCO3 ABG O2 Saturation ABG O2 Content ABG Base Excess A-a Gradient Oxyhemoglobin Carboxyhemoglobin Methemoglobin Reduced Hemoglobin Total Hemoglobin O2 Delivery Device O2 Liters/Min Minute Volume Vent Rate 20 Vent Mode Cmv FiO2 Tidal Volume 450 PEEP 12 Peak Inspir Pressure Pressure Support Sodium Potassium Chloride Carbon Dioxide Anion Gap BUN Creatinine Estim Creat Clear Calc Estimated GFR Glucose POC Capillary Glucose 209 H Calcium Phosphorus Triglycerides 288 H Vancomycin Trough 11/28/24 11/28/24 11/29/24 18:57 21:36 00:06 WBC RBC Hgb Hct MCV MCH MCHC RDW Plt Count MPV Immature Gran % (Auto) Neut % (Auto) Lymph % (Auto) [place] % (Auto) Eos % (Auto) Baso % (Auto) Lymph # (Auto) [place] # (Auto) Eos # (Auto) Baso # (Auto) Abs Immat Gran (auto) Absolute Neuts (auto) Absolute Nucleated RBC Nucleated RBC % Puncture Site ABG pH ABG pCO2 ABG pO2 ABG PO2/FiO2 Ratio ABG HCO3 ABG O2 Saturation ABG O2 Content ABG Base Excess A-a Gradient Oxyhemoglobin Carboxyhemoglobin Methemoglobin Reduced Hemoglobin Total Hemoglobin O2 Delivery Device O2 Liters/Min Minute Volume Vent Rate Vent Mode FiO2 Tidal Volume PEEP Peak Inspir Pressure Pressure Support Sodium Potassium Chloride Carbon Dioxide Anion Gap BUN Creatinine Estim Creat Clear Calc Estimated GFR Glucose POC Capillary Glucose 213 H 177 H 207 H Calcium Phosphorus Triglycerides Vancomycin Trough 11/29/24 11/29/24 11/29/24 04:34 04:58 07:17 WBC 13.6 H RBC 3.38 L Hgb 10.7 L Hct 33.0 L MCV 97.6 MCH 31.7 MCHC 32.4 RDW 12.6 Plt Count 201 MPV 10.5 H Immature Gran % (Auto) 4.8 H Neut % (Auto) 80.0 H Lymph % (Auto) 9.0 L [place] % (Auto) 4.1 Eos % (Auto) 2.0 Baso % (Auto) 0.1 L Lymph # (Auto) 1.22 [place] # (Auto) 0.6 Eos # (Auto) 0.3 Baso # (Auto) 0.0 Abs Immat Gran (auto) 0.65 H Absolute Neuts (auto) 10.9 H Absolute Nucleated RBC 0.000 Nucleated RBC % 0.0 Puncture Site Left radial ABG pH 7.499 H ABG pCO2 37.1 ABG pO2 87.8 ABG PO2/FiO2 Ratio 2.93 ABG HCO3 28.2 H ABG O2 Saturation 97.4 ABG O2 Content 16.2 ABG Base Excess 4.9 A-a Gradient 82.5 Oxyhemoglobin 96.3 Carboxyhemoglobin 0.4 Methemoglobin 0.3 Reduced Hemoglobin 3.0 Total Hemoglobin 11.9 L O2 Delivery Device Ventilator O2 Liters/Min Not Reportable Minute Volume Not Reportable Vent Rate 18 Vent Mode Cmv FiO2 30 Tidal Volume 450 PEEP 8 Peak Inspir Pressure Not Reportable Pressure Support Not Reportable Sodium 138 Potassium 3.5 Chloride 108 H Carbon Dioxide 29 Anion Gap 1 L BUN 27 H Creatinine 0.60 L Estim Creat Clear Calc 152 Estimated GFR > 60 Glucose 190 H POC Capillary Glucose 197 H Calcium 7.8 L Phosphorus 2.3 L Triglycerides Vancomycin Trough 12.9 11/29/24 09:21 WBC RBC Hgb Hct MCV MCH MCHC RDW Plt Count MPV Immature Gran % (Auto) Neut % (Auto) Lymph % (Auto) [place] % (Auto) Eos % (Auto) Baso % (Auto) Lymph # (Auto) [place] # (Auto) Eos # (Auto) Baso # (Auto) Abs Immat Gran (auto) Absolute Neuts (auto) Absolute Nucleated RBC Nucleated RBC % Puncture Site Right radial ABG pH 7.430 ABG pCO2 46.2 H ABG pO2 89.5 ABG PO2/FiO2 Ratio 2.98 ABG HCO3 30.0 H ABG O2 Saturation 97.0 ABG O2 Content 17.6 ABG Base Excess 4.9 A-a Gradient 70.1 Oxyhemoglobin 95.7 Carboxyhemoglobin 0.7 Methemoglobin 0.1 Reduced Hemoglobin 3.5 Total Hemoglobin 13.0 O2 Delivery Device Ventilator O2 Liters/Min Not Reportable Minute Volume Not Reportable Vent Rate Not Reportable Vent Mode Spontaneous FiO2 30 Tidal Volume Not Reportable PEEP 8 Peak Inspir Pressure Not Reportable Pressure Support 5 Sodium Potassium Chloride Carbon Dioxide Anion Gap BUN Creatinine Estim Creat Clear Calc Estimated GFR Glucose POC Capillary Glucose Calcium Phosphorus Triglycerides Vancomycin Trough
[2024-11-29] MEDS: HYDROcodone/acetaminophen (*CRX) 5-325 MG TABLET 1 TAB PO ×2 (12:18→18:03)
--- NOTE | 2024-11-29 12:59 | PCNFU ---
Nutrition Follow-Up Complete: Altered GI function as related to Perforated Bowel as evidenced by NPO. goal: Meet estimated nutritional needs. Patient will continue current goal. Pt current nutrition is Vital AF 1.2 at 20 ml/hr and Clinimix E 5/15 at 40 ml/hr. Last recorded weight is 117.1 kg, up from 112 kg on admit. Bowel Motility: Last reported BM 11/22 Labs Reviewed: Glu 190, Cr 0.6, BUN 27, PO4 2.3, Alb 2.5 Meds Noted: Protonix, Lantus, Clinimix E 5/15 at 40 ml/hr with 250 ml of 20% Lipid Emulsion. Skin: wound vac-abdomen. Additional Notes: Patient has been extubated. Tube feedings are on hold at this time. NGT remains. TPN providing an additional 1182 kcal and 48 gm protein. Spoke with [employer] today regarding nutrition, plans to discuss with surgery. Will monitor weight, labs, skin, diet orders, meds every Thursday and Thursday.
[2024-11-29] MEDS: AMINO ACIDS 5%/DEXTROSE 15% 1,000 ML with MULTIVITAMINS-12 INJ VIAL 1 1.25 ML, MULTIVIT... 40 ML IV CONT (14:59)
[2024-11-29] MEDS: FAT EMULSIONS IV 20% 250 ML 20.83 ML IVPB (14:59)
[2024-11-30] VITALS (18 sets, daily range): BP systolic 129–154; BP diastolic 73–92; PULSE 64–77; RESP 19–31; TEMP 37.3–37.9; O2SAT 92–98
[2024-11-30] MEDS: HYDROcodone/acetaminophen (*CRX) 5-325 MG TABLET 1 TAB PO ×4 (01:43→22:10)
[2024-11-30] MEDS: IPRATROPIUM BR 0.02% INH SOLN 0.5 MG/2.5 ML VIAL INHALATION ×2 (02:13→08:06)
[2024-11-30] MEDS: CENTRAL LINE FLUSH 10 ML IV PUSH ×3 (04:35→22:02)
[2024-11-30 05:08] LABS: Alveolar/Arterial O2 Gradient 69.6 mmHg; Carboxyhemoglobin 0.7 % THb (0-2.0); Fractional Inspired Oxygen 24 %; HCO3 ABG 28.3 mEq/l (22.0-26.0); Methemoglobin ABG 0.3 %THb (0-1.5); Oxygen Content ABG 14.8 %vol (16.0-22.0); Oxygen Saturation ABG 93.7 % (95.0-100.0); PCO2 ABG 34.7 mmHg (35.0-45.0); PO2 ABG 60.2 mmHg (80.0-100.0); PO2 FiO2 Ratio Arterial Blood 2.51 %; Reduced Hemoglobin 8.3 %THb (0-5.0)
[2024-11-30 05:11] LABS: Liters per Minute 1.0 LPM; Modified Allen's Test Pass; Site Drawn LEFT RADIAL
[2024-11-30 05:15] LABS: Anion Gap 1 mmol/L (4-12); Blood Urea Nitrogen 26 mg/dL (9-20); Calcium 7.6 mg/dL (8.4-10.2); Carbon Dioxide 28 mmol/L (22-30); Chloride 109 mmol/L (98-107); Estimated CRCL calculation 167 ml/min; Estimated Glomerular Filt Rate > 60; Glucose 189 mg/dL (65-110); Potassium 3.2 mmol/L (3.4-5.0); Sodium 138 mmol/L (137-145); Triglycerides 216 mg/dL (<150)
[2024-11-30] MEDS: VANCOMYCIN 2,000 MG/NS 500 ML 2,000 MG/500 ML BAG 250 MG IVPB ×3 (05:59→22:02)
[2024-11-30] MEDS: MEROPENEM 1 GM in SODIUM CHLORIDE 0.9% IV 100 ML 200 ML IVPB ×3 (06:02→22:02)
[2024-11-30 09:16] LABS: Hematocrit 29.7 % (42.0-52.0); Hemoglobin 9.8 g/dL (14.0-18.0); Immature Granulocyte Percent A 2.7 % (0-0.5); Lymphocytes Absolute Auto 1.05 K/mm3 (0.9-3.2); Mean Corpuscular HGB Conc 33.0 g/dl (32-36); Mean Corpuscular Hemoglobin 31.7 pg (26-34); Mean Corpuscular Volume 96.1 fl (80-100); Nucleated Red Blood Cells Absolute Auto 0.000 K/mm3 (0.0-0.012); Nucleated Red Blood Cells Perc 0.0 % (0.0-0.2); Platelet Count Result 268 k/mm3 (150-375); Red Blood Count 3.09 M/mm3 (4.6-6.20); White Blood Count 13.2 K/mm3 (4.5-10.0)
[2024-11-30] MEDS: MICAFUNGIN SODIUM 100 MG in SODIUM CHLORIDE 0.9% IV 100 ML IVPB (09:19)
[2024-11-30] MEDS: PANTOPRAZOLE SODIUM IV 40 MG VIAL IV PUSH (09:19)
[2024-11-30] MEDS: MORPHINE SULFATE (*CRX) 4 MG/ML INJ IV PUSH ×5 (09:20→20:00)
[2024-11-30] MEDS: INSULIN GLARGINE (*BKC) 100 UNITS/ML 18 UNITS SUB-Q (09:22)
[2024-11-30] MEDS: POTASSIUM BICARBONATE 25 MEQ TABEF 50 MEQ PO (09:23)
[2024-11-30] MEDS: INSULIN ASPART (*BKC) 100 UNITS/ML SUB-Q (09:26)
[2024-11-30] MEDS: KCL 40 MEQ/WATER 100 ML 100 ML 25 ML IVPB (09:28)
--- NOTE | 2024-11-30 09:45 | P.PNINT_ITS ---
Progress Note: A&P Assessment and Plan (1) Acute hypoxic respiratory failure: Code(s): J96.01 - Acute respiratory failure with hypoxia Status: Acute Assessment and Plan: Acute respiratory failure likely related to SIRS/sepsis -11/22: CTA chest: No large central PE, small right pleural effusion, dependent atelectasis, ascites, free intraperitoneal air in the upper abdomen correlate for some recent surgery -patient was initially placed on 10 L nasal cannula, now on high-flow therapy 60 L flow rate and 77% FiO2 -patient significantly tachypneic, breathing 40+ times a minute, with O2 side of 90-92% -11/23: Intubated in the ICU -chest x-ray, ventilator settings and ABGs reviewed this morning. 09/08 PSV SBT done for close to an hour. RSBI, ABGI and Vitals acceptable. Pt awake and following commands. Will extubate and monitor. NPO for now. -continue bronchodilators -off fentanyl. Continue to wean Precedex -discontinued IV fluids -11/26:responded well to Bumex -11/27: Will diurese again today 11/29 Lasix was given. Patient was extubated after a successful weaning trial. 11/30 on 2 L nasal cannula. Continue bronchodilators p.r.n. continue incentive spirometry. Pain control (2) Septic shock: Code(s): A41.9 - Sepsis, unspecified organism; R65.21 - Severe sepsis with septic shock Status: Acute Assessment and Plan: Patient POD #3, tachypneic with hypoxic respiratory failure, lactic acidosis, increasing WBC count, anion gap metabolic acidosis -initial lactic acids were elevated on 11/24/2023 when patient was brought to the ICU, adequately fluid-resuscitated before patient was taken to the OR -sepsis secondary to ruptured appendicitis -11/22: CT scan of the abdomen and pelvis this morning showed postop changes consider the since surgery likely appendectomy, no abscess identified. Small pleural effusion with dependent atelectasis -11/23: Repeat CT scan of the abdomen and pelvis without contrast showed increasing free intraperitoneal air suspicious for bowel leak. Increasing fluid in the mesentery with ascites involving the perihepatic space. No discrete abscess identified. Increasing consolidation of the lower lobes which may represent atelectasis or pneumonia. Developing small pleural effusions -discussed CT results with surgeon, - 11/23: Exploratory laparotomy with ileocolic resection for bowel perforation (cecal perforation) with spillage of bowel contents in the abdominal cavity -OFF ALL PRESSORS, maintain MAP > 65 mmHg or SBP> 100 mmHg -WEAN stress dose steroids -11/24: Blood cultures negative x2 -11/24: Sputum cultures pending -11/24: Urine cultures no growth -continue Zosyn (11/20) and micafungin (11/24) 11/26: Patient has been febrile, Zosyn was discontinued, meropenem and vancomycin added due to consolidation in the right lung > left long as seen on CT scan as under 11/26: CT brain no acute intracranial hemorrhage or suspicious mass effect 11/26: Bilateral lower extremity venous Dopplers were negative for DVTs 11/28: Bilateral upper venous Dopplers showed DVT of the right subclavian, axillary and brachial veins. (patient does have a right arm PICC line. Fevers possibly due to DVT and pneumonia 11/26/2024: CTA chest/abdomen/pelvis IMPRESSION: No pulmonary embolus. No aortic dissection. Small bilateral pleural effusions, right greater than left with adjacent consolidation, an interval change from prior. Gallbladder distention with mural thickening and surrounding inflammatory change. Right middle and lower lobe nodules, for which follow-up may be performed once patient is beyond this acute phase. No discrete intraperitoneal air is appreciated. Simple free fluid within the dependent portions of the abdomen. Fever curve is improving. White count is improving Continue meropenem, vancomycin and micafungin, (3) Status post appendectomy: Onset Date: 11/20/24 Code(s): Z90.49 - Acquired absence of other specified parts of digestive tract Status: Acute Assessment and Plan: 11/20: Discussed with surgery, NG tube will be inserted due to abdominal distension 11/23: Exploratory laparotomy with ileocolic resection for bowel perforation (cecal perforation) with spillage of bowel contents in the abdominal cavity 11/24: Wound VAC placed Treatment plans as above -pain control -11/25: started on TPN after discussing with surgery 11/27: Discussed with surgery, will start trickle tube feeds, started 10 mL, increased to a goal of 20 mL Patient is NPO at this time. General surgery is planning to change wound VAC today. Management per General surgery recommendations (4) DVT (deep venous thrombosis): Code(s): I82.409 - Acute embolism and thrombosis of unspecified deep veins of unspecified lower extremity Status: Acute Assessment and Plan: 11/28: Patient continues to have fevers, bilateral upper extremity venous Doppler with evidence of DVT of the right subclavian, axillary and brachial vein -discuss with surgery regarding therapeutic Lovenox to which the agreeable -11/28: Started patient on therapeutic Lovenox -right PICC line in place (5) Hyperglycemia: Code(s): R73.9 - Hyperglycemia, unspecified Status: Acute Assessment and Plan: Related to stress response and/or steroids -Accu-Cheks and sliding scale insulin -increase dose of Lantus (6) Electrolyte abnormality: Code(s): E87.8 - Other disorders of electrolyte and fluid balance, not elsewhere classified Status: Acute Assessment and Plan: Replace low potassium Plan DVT prophylaxis: Lovenox Stress ulcer prophylaxis: Protonix Nutrition: TPN, feeding as per General surgery Code Status: Full code Incentive spirometry Discussed with patient's sister GABRIELA Charles, updated her with patient's condition plan of care. I answered all her questions Critical Care Time Spent: 30 minutes Due to a high probability of clinically significant, life threatening deterioration, the patient required my highest level of preparedness to intervene emergently and I personally spent this critical care time directly and personally managing the patient. This critical care time included obtaining a history; examining the patient; pulse oximetry; ordering and review of studies; arranging urgent treatment with development of a management plan; evaluation of patient's response to treatment; frequent reassessment; and discussions with other providers. It was exclusive of separately billable procedures and treating other patients and teaching time. Please see Assessment and Plan section and the rest of the note for further information on patient assessment and treatment This dictation may have been done utilizing a voice recognition system. Attempts have been made to correct errors. However, there may be uncorrected grammatical, spelling, and recognitions errors present. Subjective Date/time seen: 11/30/24 Patient was extubated yesterday after a successful weaning trial. He has done well and is on nasal cannula 2 L. he states he has abdominal pain which is intermittent and sometimes at 10/10. He states he feels better if he does not take deep breathing and uses ice. He denies any nausea vomiting. He did had a bowel movement today. He is NPO. NG tube is in place. He is on TPN. No the IV infusions at this time. Fever curve has gone down and he has been afebrile this morning. Good urine output. Other vital signs stable. Blood pressure is slightly on the higher side. All other systems were reviewed and were negative. Review of Systems Review of Systems: All systems reviewed & are unremarkable except as noted in HPI and below Exam Narrative: General: Alert awake and in no distress HEENT:? Pupils reactive to light sclera is clear Neck:? Supple Respiratory:? Coarse breath sounds bilaterally, decreased at bases, adequate air entry, no wheezing, shallow breathing with slightly elevated respiratory rate but no respiratory distress and able to speak full sentence Cardiac:? S1-S2 is normal, normal sinus rhythm Abdomen:? Abdominal is soft, mild tenderness to palpation specially on the right side bruising on the abdominal wall skin, midline incision wound VAC in place with brownish liquid, bowel sounds are present Extremities:palpable pedal pulses, warm extremities, edema improving, Neuro:? AO x3, moves all 4 extremities and follows commands. Skin:? Warm and dry Psych:? Normal speech and affect Objective Data Vital Signs Vital Signs: Vital Signs - 24 hr 11/29/24 10:00 11/29/24 10:00 11/29/24 10:00 Temperature 38.5 C H Pulse Rate 60 60 60 Respiratory Rate 20 25 H Blood Pressure 104/66 Pulse Oximetry 98 Oxygen Delivery Oxygen Flow Rate Fraction of Inspired Oxygen 11/29/24 11:00 11/29/24 11:54 11/29/24 12:00 Temperature 38.6 C H Pulse Rate 63 63 74 Respiratory Rate 22 H 22 H 22 H Blood Pressure 106/70 Pulse Oximetry 99 Oxygen Delivery Oxygen Flow Rate Fraction of Inspired Oxygen 11/29/24 12:00 11/29/24 12:00 11/29/24 14:00 Temperature Pulse Rate 68 68 72 Respiratory Rate 22 H Blood Pressure Pulse Oximetry 95 Oxygen Delivery Nasal Cannula Oxygen Flow Rate 2 Fraction of Inspired Oxygen 28 11/29/24 14:00 11/29/24 15:11 11/29/24 15:20 Temperature 38.2 C H Pulse Rate 72 86 80 Respiratory Rate 21 H 20 20 Blood Pressure 125/78 Pulse Oximetry 95 Oxygen Delivery Oxygen Flow Rate Fraction of Inspired Oxygen 11/29/24 16:00 11/29/24 16:00 11/29/24 16:00 Temperature 38.1 C H Pulse Rate 79 78 78 Respiratory Rate 24 H 23 H Blood Pressure 129/79 Pulse Oximetry 94 94 Oxygen Delivery Nasal Cannula Oxygen Flow Rate 2 Fraction of Inspired Oxygen 28 11/29/24 18:00 11/29/24 18:00 11/29/24 19:41 Temperature 38.2 C H Pulse Rate 71 71 43 L Respiratory Rate 25 H 16 Blood Pressure 134/78 Pulse Oximetry 95 Oxygen Delivery Oxygen Flow Rate Fraction of Inspired Oxygen 11/29/24 19:59 11/29/24 20:00 11/29/24 20:00 Temperature 38.2 C H Pulse Rate 82 84 Respiratory Rate 16 27 H Blood Pressure 143/78 H Pulse Oximetry 97 96 96 Oxygen Delivery Nasal Cannula Nasal Cannula Oxygen Flow Rate 1 1 Fraction of Inspired Oxygen 11/29/24 20:00 11/29/24 22:00 11/29/24 22:00 Temperature 37.9 C H Pulse Rate 84 74 74 Respiratory Rate 28 H Blood Pressure 138/82 Pulse Oximetry 96 Oxygen Delivery Oxygen Flow Rate Fraction of Inspired Oxygen 11/30/24 00:00 11/30/24 00:00 11/30/24 00:00 Temperature 37.7 C H Pulse Rate 74 72 Respiratory Rate 30 H Blood Pressure 150/82 H Pulse Oximetry 95 95 Oxygen Delivery Nasal Cannula Oxygen Flow Rate 1 Fraction of Inspired Oxygen 11/30/24 02:00 11/30/24 02:00 11/30/24 02:13 Temperature 37.6 C H Pulse Rate 66 66 65 Respiratory Rate 27 H 21 H Blood Pressure 147/82 H Pulse Oximetry 98 Oxygen Delivery Oxygen Flow Rate Fraction of Inspired Oxygen 11/30/24 04:00 11/30/24 04:00 11/30/24 04:00 Temperature 37.3 C Pulse Rate 68 69 Respiratory Rate 30 H Blood Pressure 153/84 H Pulse Oximetry 95 95 Oxygen Delivery Nasal Cannula Oxygen Flow Rate 1 Fraction of Inspired Oxygen 11/30/24 06:00 11/30/24 06:00 11/30/24 08:00 Temperature 37.4 C 37.4 C Pulse Rate 64 64 64 Respiratory Rate 24 H 31 H Blood Pressure 154/89 H 148/77 H Pulse Oximetry 95 95 Oxygen Delivery Oxygen Flow Rate Fraction of Inspired Oxygen 11/30/24 08:08 11/30/24 08:08 11/30/24 08:25 Temperature Pulse Rate 67 67 71 Respiratory Rate 24 H 24 H 29 H Blood Pressure Pulse Oximetry 95 Oxygen Delivery Nasal Cannula Oxygen Flow Rate 1 Fraction of Inspired Oxygen Intake/Output Intake/Output: Intake & Output 11/27/24 11/28/24 11/29/24 11/30/24 23:59 23:59 23:59 23:59 Intake Total 2707.3 4352.0 3475.1 980 Output Total 4050 4050 3500 1060 Balance -1342.7 302.0 -24.9 -80 Meds/Results Medications: Active Medications Generic Name Dose Route Start Last Admin Trade Name Freq PRN Reason Stop Dose Admin Acetaminophen 650 mg 11/29/24 09:42 Acetaminophen 325 Mg Tablet PO Q4H PRN Mild Pain (1-3) or Fever Hydrocodone Bitart/Acetaminophen 1 tab 11/29/24 09:42 11/30/24 06:45 Hydrocodone/Acetaminophen (*Crx) 5-325 Mg Tablet PO 1 tab Q4H PRN Administration Pain Rated 4-6 Dextrose 12.5 gm 11/24/24 08:03 Dextrose 50% 25 Gm/50 Ml Syringe IV PUSH PRN PRN Hypoglycemia Protocol Enoxaparin Sodium 115 mg 11/28/24 21:00 11/29/24 20:32 Enoxaparin 120 Mg/0.8 Ml Syringe SUB-Q 115 mg Q12HR TAMICA Administration Furosemide 20 mg 11/30/24 12:00 Furosemide Inj 40 Mg/4 Ml Vial IV PUSH 11/30/24 12:01 ONCE ONE Glucagon 1 mg 11/24/24 08:03 Glucagon For Inj 1 Mg Vial IM PRN PRN Hypoglycemia Protocol Glucose 15 gm 11/24/24 08:03 Glucose Oral Gel 15 Gm Of Glucse In 37.5 Gm Tube PO PRN PRN Hypoglycemia Protocol Hydralazine HCl 20 mg 11/30/24 08:04 Hydralazine Hcl 20 Mg/Ml Vial IV PUSH Q4H PRN SBP more than 160 Micafungin Sodium 100 mg/ 100 mls @ 100 mls/hr 11/24/24 09:00 11/30/24 09:19 Sodium Chloride IVPB 12/01/24 08:59 100 mls/hr DAILY TAMICA Administration Dextrose 1,000 mls @ 100 mls/hr 11/24/24 08:03 Dextrose 5% 1,000 Ml IVPB PRN PRN Hypoglycemia Protocol Multivitamins 1.25 ml/ 1,002.5 mls @ 40 mls/hr 11/25/24 15:00 11/29/24 14:59 Multivitamins 1.25 ml/ Amino IV CONT 40 mls/hr Acids/Dextrose .Q24H TAMICA Administration Protocol Dextrose 1,000 mls @ 50 mls/hr 11/25/24 14:02 Dextrose 10% IV CONT .Q20H PRN if PN is interrupted Fat Emulsion Intravenous 250 mls @ 20.833 mls/hr 11/25/24 15:00 11/30/24 03:00 Lipids 20% IVPB Infused Q24H TAMICA Infusion Meropenem 1 gm/ Sodium 100 mls @ 200 mls/hr 11/26/24 15:00 11/30/24 06:32 Chloride IVPB Infused Q8H TAMICA Infusion Vancomycin HCl 2,000 mg in 500 mls @ 250 mls/hr 11/29/24 06:00 11/30/24 05:59 Vancomycin 2,000 Mg/Ns 500 Ml IVPB 250 mls/hr Q8H TAMICA Administration Potassium Chloride 100 mls @ 25 mls/hr 11/30/24 08:15 11/30/24 09:28 Kcl 40 Meq/Water 100 Ml IVPB 11/30/24 12:14 25 mls/hr ONCE ONE Administration Insulin Aspart 3 - 6 units 11/24/24 09:00 11/30/24 09:26 Insulin Aspart (*Bkc) 100 Units/Ml SUB-Q 3 units Q4H TAMICA Administration Protocol Insulin Glargine 18 units 11/30/24 09:00 11/30/24 09:22 Insulin Glargine (*Bkc) 100 Units/Ml SUB-Q 18 units DAILY TAMICA Administration Ipratropium [place] 0.5 mg 11/23/24 14:00 11/30/24 08:06 Ipratropium Br 0.02% Inh Soln 0.5 Mg/2.5 Ml Vial INHALATION 0.5 mg Q6HRT TAMICA Administration Levalbuterol HCl 0.63 mg 11/23/24 14:00 11/30/24 08:06 Levalbuterol Neb 1.25 Mg/3 Ml INHALATION 0.63 mg Q6HRT TAMICA Administration Morphine Sulfate 4 mg 11/29/24 09:42 11/30/24 09:20 Morphine Sulfate (*Crx) 4 Mg/Ml Inj IV PUSH 4 mg Q2H PRN Administration Pain Rated 7-10 Pantoprazole Sodium 40 mg 11/24/24 09:00 11/30/24 09:19 Pantoprazole Sodium Iv 40 Mg Vial IV PUSH 40 mg QAM TAMICA Administration Sodium Chloride 10 ml 11/23/24 14:00 11/30/24 04:35 Central Line Flush IV PUSH 10 ml Q8HR TAMICA Administration Sodium Chloride 10 ml 11/23/24 13:39 Central Line Flush IV PUSH PRN PRN with TPN bag changes Sodium Chloride 20 ml 11/23/24 13:39 Central Line Flush IV PUSH PRN PRN after blood draws Radiology Results: ITS Impressions Chest CTA 11/23/24 05:53 IMPRESSION: 1. Free intraperitoneal air in the upper abdomen. Correlate for recent surgery. In the absence of known surgery this is most likely secondary to bowel perforation. Clinically correlate. 2: No large central pulmonary embolism. Limited evaluation of the secondary and tertiary pulmonary arteries. 3: Small right pleural effusion. Dependent atelectasis. 4: Ascites. Abdomen/Pelvis CT 11/23/24 13:00 IMPRESSION: 1. Increasing free intraperitoneal air 11/22/2024, suspicious for bowel leak. Increasing fluid in the mesentery with ascites involving the perihepatic space. No discrete abscess identified. Consider correlation with contrast-enhanced CT abdomen. 2: Increasing consolidation of the lower lobes which may represent atelectasis or pneumonia. 3: Developing small pleural effusions. Abdomen X-Ray 11/23/24 14:04 IMPRESSION: 1: NG tube tip in the stomach. 2: Bibasilar airspace disease, edema versus pneumonia. Head CT 11/26/24 14:47 Impression: No acute intracranial hemorrhage or suspicious mass effect. Chest/Abdomen/Pelvis CTA 11/26/24 14:58 IMPRESSION: No pulmonary embolus. No aortic dissection. Small bilateral pleural effusions, right greater than left with adjacent consolidation, an interval change from prior. Gallbladder distention with mural thickening and surrounding inflammatory change. Right middle and lower lobe nodules, for which follow-up may be performed once patient is beyond this acute phase. No discrete intraperitoneal air is appreciated. Simple free fluid within the dependent portions of the abdomen. Venous Doppler Study 11/28/24 11:19 IMPRESSION: 1. Deep venous thrombosis of the right subclavian, axillary and brachial veins. Dr. Kam Gongora discussed with the proof clerk]Kurt Castaneda at 11/28/2024 11:23 CDT. Chest X-Ray 11/30/24 06:18 IMPRESSION: Small bilateral pleural effusions. Nasogastric tube and PICC line in good position. Labs Labs: Laboratory Results - last 24 hr 11/29/24 11/29/24 11/29/24 12:55 15:50 20:33 WBC RBC Hgb Hct MCV MCH MCHC RDW Plt Count MPV Immature Gran % (Auto) Neut % (Auto) Lymph % (Auto) [place] % (Auto) Eos % (Auto) Baso % (Auto) Lymph # (Auto) [place] # (Auto) Eos # (Auto) Baso # (Auto) Abs Immat Gran (auto) Absolute Neuts (auto) Absolute Nucleated RBC Nucleated RBC % Puncture Site ABG pH ABG pCO2 ABG pO2 ABG PO2/FiO2 Ratio ABG HCO3 ABG O2 Saturation ABG O2 Content ABG Base Excess A-a Gradient Oxyhemoglobin Carboxyhemoglobin Methemoglobin Reduced Hemoglobin Total Hemoglobin O2 Delivery Device O2 Liters/Min FiO2 Sodium Potassium Chloride Carbon Dioxide Anion Gap BUN Creatinine Estim Creat Clear Calc Estimated GFR Glucose POC Capillary Glucose 182 H 181 H 177 H Calcium Phosphorus Triglycerides Vancomycin Trough 11/29/24 11/30/24 11/30/24 23:06 03:12 04:43 WBC RBC Hgb Hct MCV MCH MCHC RDW Plt Count MPV Immature Gran % (Auto) Neut % (Auto) Lymph % (Auto) [place] % (Auto) Eos % (Auto) Baso % (Auto) Lymph # (Auto) [place] # (Auto) Eos # (Auto) Baso # (Auto) Abs Immat Gran (auto) Absolute Neuts (auto) Absolute Nucleated RBC Nucleated RBC % Puncture Site ABG pH ABG pCO2 ABG pO2 ABG PO2/FiO2 Ratio ABG HCO3 ABG O2 Saturation ABG O2 Content ABG Base Excess A-a Gradient Oxyhemoglobin Carboxyhemoglobin Methemoglobin Reduced Hemoglobin Total Hemoglobin O2 Delivery Device O2 Liters/Min FiO2 Sodium 138 Potassium 3.2 L Chloride 109 H Carbon Dioxide 28 Anion Gap 1 L BUN 26 H Creatinine 0.54 L Estim Creat Clear Calc 167 Estimated GFR > 60 Glucose 189 H POC Capillary Glucose 164 H 183 H Calcium 7.6 L Phosphorus 2.5 Triglycerides 216 H Vancomycin Trough 13.7 11/30/24 11/30/24 11/30/24 04:53 07:22 09:09 WBC 13.2 H RBC 3.09 L Hgb 9.8 L Hct 29.7 L MCV 96.1 MCH 31.7 MCHC 33.0 RDW 12.4 Plt Count 268 MPV 10.9 H Immature Gran % (Auto) 2.7 H Neut % (Auto) 85.0 H Lymph % (Auto) 8.0 L [place] % (Auto) 4.0 Eos % (Auto) 0.1 Baso % (Auto) 0.2 Lymph # (Auto) 1.05 [place] # (Auto) 0.5 Eos # (Auto) 0.0 Baso # (Auto) 0.0 Abs Immat Gran (auto) 0.35 H Absolute Neuts (auto) 11.2 H Absolute Nucleated RBC 0.000 Nucleated RBC % 0.0 Puncture Site Left radial ABG pH 7.529 H* ABG pCO2 34.7 L ABG pO2 60.2 L ABG PO2/FiO2 Ratio 2.51 ABG HCO3 28.3 H ABG O2 Saturation 93.7 L ABG O2 Content 14.8 L ABG Base Excess 5.5 A-a Gradient 69.6 Oxyhemoglobin 90.7 Carboxyhemoglobin 0.7 Methemoglobin 0.3 Reduced Hemoglobin 8.3 H Total Hemoglobin 11.6 L O2 Delivery Device Nasal cannula O2 Liters/Min 1.0 FiO2 24 Sodium Potassium Chloride Carbon Dioxide Anion Gap BUN Creatinine Estim Creat Clear Calc Estimated GFR Glucose POC Capillary Glucose 201 H Calcium Phosphorus Triglycerides Vancomycin Trough Quality VTE Prophylaxis VTE prophylaxis: pharmacologic ordered
--- NOTE | 2024-11-30 10:15 | PM.PNGS ---
Progress Note: A&P Assessment and Plan (1) Perforated abdominal viscus: Code(s): R19.8 - Other specified symptoms and signs involving the digestive system and abdomen Status: Acute Assessment and Plan: Active bowel sounds, no signs of peritonitis. Wound healing with no fecal odor or fecal presence. Continue NPO except ice chips or meds. DC NG tube. (2) Severe sepsis: Code(s): A41.9 - Sepsis, unspecified organism; R65.20 - Severe sepsis without septic shock Status: Acute Assessment and Plan: Much improved. Off pressors and off of ventilator yesterday. Still confused. (3) Acute hypoxic respiratory failure: Code(s): J96.01 - Acute respiratory failure with hypoxia Status: Acute Assessment and Plan: Off ventilator yesterday, respiratory status stable. (4) Open abdominal incision with drainage: Qualifiers: Encounter type: subsequent encounter Qualified Code(s): T81.321D - Disruption or dehiscence of closure of internal operation (surgical) wound of abdominal wall muscle or fascia, subsequent encounter Code(s): T81.321A - Disruption or dehiscence of closure of internal operation (surgical) wound of abdominal wall muscle or fascia, initial encounter Status: Acute Assessment and Plan: Healing with no sign of fistula either from wound VAC drainage or wound evaluation. Continue wound VAC therapy. (5) DVT (deep venous thrombosis): Qualifiers: DVT location: upper extremity Affected thrombotic vein of extremity: axillary Chronicity: acute Laterality: right Qualified Code(s): I82.A11 - Acute embolism and thrombosis of right axillary vein Code(s): I82.409 - Acute embolism and thrombosis of unspecified deep veins of unspecified lower extremity Status: Acute Assessment and Plan: On therapeutic dose of Lovenox (6) Protein-calorie malnutrition, severe: Code(s): E43 - Unspecified severe protein-calorie malnutrition Status: Acute Assessment and Plan: Increase TPN to 60 cc an hour today. Hopefully can try some liquids tomorrow. With potential enterocutaneous fistula, will need to go slowly with oral intake. Subjective Subjective Date/Time Seen: 11/30/24 10:15 Patient reports: no new complaints, bowel movement, fever (Maximum temperature 38.6?) and other (Patient extubated yesterday,) Exam Const: General: comfortable, awake, confusion and tired appearing Nutritional Appearance: overweight Orientation/consciousness: confusion GI: Inspection: non-distended, obesity and other (No stool in wound VAC canister, wound pain and healing) GI Palp: Yes Firmness to palpation present (GI), Yes Tenderness to palpation present (GI), No Hernia present and No Palpable mass present Auscultation: normoactive bowel sounds Other: No stool or odor in abdominal wound, pink with beefy red granulation tissue, healing Urinary Catheter: Urinary Catheter: patent and draining Neuro: General: confusion Extrem: General: edema Psych: Speech and movement: Clear speech present Affect: Blunted affect present Attitude: cooperative Insight: Limited insight present (Psych) Judgement: Limited judgement present (Psych) Objective Data Vital Signs Vital Signs: Vital Signs - 24 hr 11/29/24 11:00 11/29/24 11:54 11/29/24 12:00 Temperature 38.6 C H Pulse Rate 63 63 74 Respiratory Rate 22 H 22 H 22 H Blood Pressure 106/70 Pulse Oximetry 99 Oxygen Delivery Oxygen Flow Rate Fraction of Inspired Oxygen 11/29/24 12:00 11/29/24 12:00 11/29/24 14:00 Temperature Pulse Rate 68 68 72 Respiratory Rate 22 H Blood Pressure Pulse Oximetry 95 Oxygen Delivery Nasal Cannula Oxygen Flow Rate 2 Fraction of Inspired Oxygen 28 11/29/24 14:00 11/29/24 15:11 11/29/24 15:20 Temperature 38.2 C H Pulse Rate 72 86 80 Respiratory Rate 21 H 20 20 Blood Pressure 125/78 Pulse Oximetry 95 Oxygen Delivery Oxygen Flow Rate Fraction of Inspired Oxygen 11/29/24 16:00 11/29/24 16:00 11/29/24 16:00 Temperature 38.1 C H Pulse Rate 79 78 78 Respiratory Rate 24 H 23 H Blood Pressure 129/79 Pulse Oximetry 94 94 Oxygen Delivery Nasal Cannula Oxygen Flow Rate 2 Fraction of Inspired Oxygen 11/29/24 18:00 11/29/24 18:00 11/29/24 19:41 Temperature 38.2 C H Pulse Rate 71 71 43 L Respiratory Rate 25 H 16 Blood Pressure 134/78 Pulse Oximetry 95 Oxygen Delivery Oxygen Flow Rate Fraction of Inspired Oxygen 11/29/24 19:59 11/29/24 20:00 11/29/24 20:00 Temperature 38.2 C H Pulse Rate 82 84 Respiratory Rate 16 27 H Blood Pressure 143/78 H Pulse Oximetry 97 96 96 Oxygen Delivery Nasal Cannula Nasal Cannula Oxygen Flow Rate 1 1 Fraction of Inspired Oxygen 11/29/24 20:00 11/29/24 22:00 11/29/24 22:00 Temperature 37.9 C H Pulse Rate 84 74 74 Respiratory Rate 28 H Blood Pressure 138/82 Pulse Oximetry 96 Oxygen Delivery Oxygen Flow Rate Fraction of Inspired Oxygen 11/30/24 00:00 11/30/24 00:00 11/30/24 00:00 Temperature 37.7 C H Pulse Rate 74 72 Respiratory Rate 30 H Blood Pressure 150/82 H Pulse Oximetry 95 95 Oxygen Delivery Nasal Cannula Oxygen Flow Rate 1 Fraction of Inspired Oxygen 11/30/24 02:00 11/30/24 02:00 11/30/24 02:13 Temperature 37.6 C H Pulse Rate 66 66 65 Respiratory Rate 27 H 21 H Blood Pressure 147/82 H Pulse Oximetry 98 Oxygen Delivery Oxygen Flow Rate Fraction of Inspired Oxygen 11/30/24 04:00 11/30/24 04:00 11/30/24 04:00 Temperature 37.3 C Pulse Rate 68 69 Respiratory Rate 30 H Blood Pressure 153/84 H Pulse Oximetry 95 95 Oxygen Delivery Nasal Cannula Oxygen Flow Rate 1 Fraction of Inspired Oxygen 11/30/24 06:00 11/30/24 06:00 11/30/24 08:00 Temperature 37.4 C 37.4 C Pulse Rate 64 64 64 Respiratory Rate 24 H 31 H Blood Pressure 154/89 H 148/77 H Pulse Oximetry 95 95 Oxygen Delivery Oxygen Flow Rate Fraction of Inspired Oxygen 11/30/24 08:08 11/30/24 08:08 11/30/24 08:25 Temperature Pulse Rate 67 67 71 Respiratory Rate 24 H 24 H 29 H Blood Pressure Pulse Oximetry 95 Oxygen Delivery Nasal Cannula Oxygen Flow Rate 1 Fraction of Inspired Oxygen 11/30/24 10:00 Temperature 37.5 C Pulse Rate 69 Respiratory Rate 20 Blood Pressure 129/73 Pulse Oximetry 94 Oxygen Delivery Oxygen Flow Rate Fraction of Inspired Oxygen Intake/Output Intake/Output: Intake & Output 11/27/24 11/28/24 11/29/24 11/30/24 23:59 23:59 23:59 23:59 Intake Total 2707.3 4352.0 3475.1 980 Output Total 4050 4050 3500 1060 Balance -1342.7 302.0 -24.9 -80 Meds/Results Medications: Active Medications Generic Name Dose Route Start Last Admin Trade Name Layla PRN Reason Stop Dose Admin Acetaminophen 650 mg 11/29/24 09:42 Acetaminophen 325 Mg Tablet PO Q4H PRN Mild Pain (1-3) or Fever Hydrocodone Bitart/Acetaminophen 1 tab 11/29/24 09:42 11/30/24 06:45 Hydrocodone/Acetaminophen (*Crx) 5-325 Mg Tablet PO 1 tab Q4H PRN Administration Pain Rated 4-6 Dextrose 12.5 gm 11/24/24 08:03 Dextrose 50% 25 Gm/50 Ml Syringe IV PUSH PRN PRN Hypoglycemia Protocol Enoxaparin Sodium 115 mg 11/28/24 21:00 11/29/24 20:32 Enoxaparin 120 Mg/0.8 Ml Syringe SUB-Q 115 mg Q12HR TAMICA Administration Furosemide 20 mg 11/30/24 12:00 Furosemide Inj 40 Mg/4 Ml Vial IV PUSH 11/30/24 12:01 ONCE ONE Glucagon 1 mg 11/24/24 08:03 Glucagon For Inj 1 Mg Vial IM PRN PRN Hypoglycemia Protocol Glucose 15 gm 11/24/24 08:03 Glucose Oral Gel 15 Gm Of Glucse In 37.5 Gm Tube PO PRN PRN Hypoglycemia Protocol Hydralazine HCl 20 mg 11/30/24 08:04 Hydralazine Hcl 20 Mg/Ml Vial IV PUSH Q4H PRN SBP more than 160 Micafungin Sodium 100 mg/ 100 mls @ 100 mls/hr 11/24/24 09:00 11/30/24 09:19 Sodium Chloride IVPB 12/01/24 08:59 100 mls/hr DAILY TAMICA Administration Dextrose 1,000 mls @ 100 mls/hr 11/24/24 08:03 Dextrose 5% 1,000 Ml IVPB PRN PRN Hypoglycemia Protocol Multivitamins 1.25 ml/ 1,002.5 mls @ 40 mls/hr 11/25/24 15:00 11/29/24 14:59 Multivitamins 1.25 ml/ Amino IV CONT 40 mls/hr Acids/Dextrose .Q24H TAMICA Administration Protocol Dextrose 1,000 mls @ 50 mls/hr 11/25/24 14:02 Dextrose 10% IV CONT .Q20H PRN if PN is interrupted Fat Emulsion Intravenous 250 mls @ 20.833 mls/hr 11/25/24 15:00 11/30/24 03:00 Lipids 20% IVPB Infused Q24H TAMICA Infusion Meropenem 1 gm/ Sodium 100 mls @ 200 mls/hr 11/26/24 15:00 11/30/24 06:32 Chloride IVPB Infused Q8H TAMICA Infusion Vancomycin HCl 2,000 mg in 500 mls @ 250 mls/hr 11/29/24 06:00 11/30/24 05:59 Vancomycin 2,000 Mg/Ns 500 Ml IVPB 250 mls/hr Q8H TAMICA Administration Potassium Chloride 100 mls @ 25 mls/hr 11/30/24 08:15 11/30/24 09:28 Kcl 40 Meq/Water 100 Ml IVPB 11/30/24 12:14 25 mls/hr ONCE ONE Administration Insulin Aspart 3 - 6 units 11/24/24 09:00 11/30/24 09:26 Insulin Aspart (*Bkc) 100 Units/Ml SUB-Q 3 units Q4H TAMICA Administration Protocol Insulin Glargine 18 units 11/30/24 09:00 11/30/24 09:22 Insulin Glargine (*Bkc) 100 Units/Ml SUB-Q 18 units DAILY TAMICA Administration Ipratropium Grant 0.5 mg 11/30/24 09:51 Ipratropium Br 0.02% Inh Soln 0.5 Mg/2.5 Ml Vial INHALATION Q6HRT PRN Wheezing Levalbuterol HCl 0.63 mg 11/30/24 09:51 Levalbuterol Neb 1.25 Mg/3 Ml INHALATION Q6HRT PRN Wheezing Morphine Sulfate 4 mg 11/29/24 09:42 11/30/24 09:20 Morphine Sulfate (*Crx) 4 Mg/Ml Inj IV PUSH 4 mg Q2H PRN Administration Pain Rated 7-10 Pantoprazole Sodium 40 mg 11/24/24 09:00 11/30/24 09:19 Pantoprazole Sodium Iv 40 Mg Vial IV PUSH 40 mg QAM TAMICA Administration Sodium Chloride 10 ml 11/23/24 14:00 11/30/24 04:35 Central Line Flush IV PUSH 10 ml Q8HR TAMICA Administration Sodium Chloride 10 ml 11/23/24 13:39 Central Line Flush IV PUSH PRN PRN with TPN bag changes Sodium Chloride 20 ml 11/23/24 13:39 Central Line Flush IV PUSH PRN PRN after blood draws Radiology Results: ITS Impressions Chest CTA 11/23/24 05:53 IMPRESSION: 1. Free intraperitoneal air in the upper abdomen. Correlate for recent surgery. In the absence of known surgery this is most likely secondary to bowel perforation. Clinically correlate. 2: No large central pulmonary embolism. Limited evaluation of the secondary and tertiary pulmonary arteries. 3: Small right pleural effusion. Dependent atelectasis. 4: Ascites. Abdomen/Pelvis CT 11/23/24 13:00 IMPRESSION: 1. Increasing free intraperitoneal air 11/22/2024, suspicious for bowel leak. Increasing fluid in the mesentery with ascites involving the perihepatic space. No discrete abscess identified. Consider correlation with contrast-enhanced CT abdomen. 2: Increasing consolidation of the lower lobes which may represent atelectasis or pneumonia. 3: Developing small pleural effusions. Abdomen X-Ray 11/23/24 14:04 IMPRESSION: 1: NG tube tip in the stomach. 2: Bibasilar airspace disease, edema versus pneumonia. Head CT 11/26/24 14:47 Impression: No acute intracranial hemorrhage or suspicious mass effect. Chest/Abdomen/Pelvis CTA 11/26/24 14:58 IMPRESSION: No pulmonary embolus. No aortic dissection. Small bilateral pleural effusions, right greater than left with adjacent consolidation, an interval change from prior. Gallbladder distention with mural thickening and surrounding inflammatory change. Right middle and lower lobe nodules, for which follow-up may be performed once patient is beyond this acute phase. No discrete intraperitoneal air is appreciated. Simple free fluid within the dependent portions of the abdomen. Venous Doppler Study 11/28/24 11:19 IMPRESSION: 1. Deep venous thrombosis of the right subclavian, axillary and brachial veins. Dr. Kam Gongora discussed with the repair service clerk]Kurt Castaneda at 11/28/2024 11:23 CDT. Chest X-Ray 11/30/24 06:18 IMPRESSION: Small bilateral pleural effusions. Nasogastric tube and PICC line in good position. Labs Labs: Laboratory Results - last 24 hr 11/29/24 11/29/24 11/29/24 12:55 15:50 20:33 WBC RBC Hgb Hct MCV MCH MCHC RDW Plt Count MPV Immature Gran % (Auto) Neut % (Auto) Lymph % (Auto) [place] % (Auto) Eos % (Auto) Baso % (Auto) Lymph # (Auto) [place] # (Auto) Eos # (Auto) Baso # (Auto) Abs Immat Gran (auto) Absolute Neuts (auto) Absolute Nucleated RBC Nucleated RBC % Puncture Site ABG pH ABG pCO2 ABG pO2 ABG PO2/FiO2 Ratio ABG HCO3 ABG O2 Saturation ABG O2 Content ABG Base Excess A-a Gradient Oxyhemoglobin Carboxyhemoglobin Methemoglobin Reduced Hemoglobin Total Hemoglobin O2 Delivery Device O2 Liters/Min FiO2 Sodium Potassium Chloride Carbon Dioxide Anion Gap BUN Creatinine Estim Creat Clear Calc Estimated GFR Glucose POC Capillary Glucose 182 H 181 H 177 H Calcium Phosphorus Triglycerides Vancomycin Trough 11/29/24 11/30/24 11/30/24 23:06 03:12 04:43 WBC RBC Hgb Hct MCV MCH MCHC RDW Plt Count MPV Immature Gran % (Auto) Neut % (Auto) Lymph % (Auto) [place] % (Auto) Eos % (Auto) Baso % (Auto) Lymph # (Auto) [place] # (Auto) Eos # (Auto) Baso # (Auto) Abs Immat Gran (auto) Absolute Neuts (auto) Absolute Nucleated RBC Nucleated RBC % Puncture Site ABG pH ABG pCO2 ABG pO2 ABG PO2/FiO2 Ratio ABG HCO3 ABG O2 Saturation ABG O2 Content ABG Base Excess A-a Gradient Oxyhemoglobin Carboxyhemoglobin Methemoglobin Reduced Hemoglobin Total Hemoglobin O2 Delivery Device O2 Liters/Min FiO2 Sodium 138 Potassium 3.2 L Chloride 109 H Carbon Dioxide 28 Anion Gap 1 L BUN 26 H Creatinine 0.54 L Estim Creat Clear Calc 167 Estimated GFR > 60 Glucose 189 H POC Capillary Glucose 164 H 183 H Calcium 7.6 L Phosphorus 2.5 Triglycerides 216 H Vancomycin Trough 13.7 11/30/24 11/30/24 11/30/24 04:53 07:22 09:09 WBC 13.2 H RBC 3.09 L Hgb 9.8 L Hct 29.7 L MCV 96.1 MCH 31.7 MCHC 33.0 RDW 12.4 Plt Count 268 MPV 10.9 H Immature Gran % (Auto) 2.7 H Neut % (Auto) 85.0 H Lymph % (Auto) 8.0 L [place] % (Auto) 4.0 Eos % (Auto) 0.1 Baso % (Auto) 0.2 Lymph # (Auto) 1.05 [place] # (Auto) 0.5 Eos # (Auto) 0.0 Baso # (Auto) 0.0 Abs Immat Gran (auto) 0.35 H Absolute Neuts (auto) 11.2 H Absolute Nucleated RBC 0.000 Nucleated RBC % 0.0 Puncture Site Left radial ABG pH 7.529 H* ABG pCO2 34.7 L ABG pO2 60.2 L ABG PO2/FiO2 Ratio 2.51 ABG HCO3 28.3 H ABG O2 Saturation 93.7 L ABG O2 Content 14.8 L ABG Base Excess 5.5 A-a Gradient 69.6 Oxyhemoglobin 90.7 Carboxyhemoglobin 0.7 Methemoglobin 0.3 Reduced Hemoglobin 8.3 H Total Hemoglobin 11.6 L O2 Delivery Device Nasal cannula O2 Liters/Min 1.0 FiO2 24 Sodium Potassium Chloride Carbon Dioxide Anion Gap BUN Creatinine Estim Creat Clear Calc Estimated GFR Glucose POC Capillary Glucose 201 H Calcium Phosphorus Triglycerides Vancomycin Trough
[2024-11-30] MEDS: ENOXAPARIN 120 MG/0.8 ML SYRINGE 115 MG SUB-Q ×2 (10:53→22:02)
--- NOTE | 2024-11-30 10:59 | PCFNICU ---
ICU Rounding Note: Pt current nutrition is TPN at 40 ml/hr. Last recorded weight is 117 kg, up from 112.9 kg on admit. Bowel Motility: Last reported BM 11/29 Labs Reviewed: Glu 189, BUN 26, Cr 0.54,K 3.2, Alb 2.5 Meds Noted: Clinimix E 5/15 at 40 ml/hr with 250 ml of 20% Lipid Emulsion. Skin: would vac-abdomen. Additional Notes: Spoke with surgery today, tube feedings have been discontinued. TPN remains at 40 ml/hr providing 1182 kcal and 48 gm protein. Plans to start liquids this week. Following daily in ICU rounds. Will monitor weight, labs, skin, diet orders, meds every Thursday and Thursday.
[2024-11-30] MEDS: FUROSEMIDE INJ 40 MG/4 ML VIAL 20 MG IV PUSH (11:16)
[2024-11-30] MEDS: AMINO ACIDS 5%/DEXTROSE 15% 1,000 ML with MULTIVITAMINS-12 INJ VIAL 1 1.25 ML, MULTIVIT... 40 ML IV CONT (13:49)
[2024-11-30] MEDS: FAT EMULSIONS IV 20% 250 ML 20.83 ML IVPB (15:35)
[2024-11-30 16:42] LABS: Anion Gap 2 mmol/L (4-12); Blood Urea Nitrogen 22 mg/dL (9-20); Calcium 7.5 mg/dL (8.4-10.2); Carbon Dioxide 27 mmol/L (22-30); Chloride 106 mmol/L (98-107); Estimated CRCL calculation 178 ml/min; Estimated Glomerular Filt Rate > 60; Glucose 174 mg/dL (65-110); Potassium 3.4 mmol/L (3.4-5.0); Sodium 135 mmol/L (137-145)
[2024-12-01] VITALS (12 sets, daily range): BP systolic 137–142; BP diastolic 75–87; PULSE 68–82; RESP 18–25; TEMP 36.9–38.2; O2SAT 96–98
[2024-12-01] MEDS: MORPHINE SULFATE (*CRX) 4 MG/ML INJ IV PUSH (00:06)
[2024-12-01] MEDS: HYDROcodone/acetaminophen (*CRX) 5-325 MG TABLET 1 TAB PO ×3 (04:33→22:10)
[2024-12-01] MEDS: CENTRAL LINE FLUSH 10 ML IV PUSH ×3 (04:35→22:10)
[2024-12-01 04:47] LABS: Hematocrit 28.9 % (42.0-52.0); Hemoglobin 9.9 g/dL (14.0-18.0); Immature Granulocyte Percent A 1.5 % (0-0.5); Lymphocytes Absolute Auto 1.18 K/mm3 (0.9-3.2); Mean Corpuscular HGB Conc 34.3 g/dl (32-36); Mean Corpuscular Hemoglobin 31.8 pg (26-34); Mean Corpuscular Volume 92.9 fl (80-100); Nucleated Red Blood Cells Absolute Auto 0.000 K/mm3 (0.0-0.012); Nucleated Red Blood Cells Perc 0.0 % (0.0-0.2); Platelet Count Result 353 k/mm3 (150-375); Red Blood Count 3.11 M/mm3 (4.6-6.20); White Blood Count 14.4 K/mm3 (4.5-10.0)
[2024-12-01 05:00] LABS: Alanine Aminotransferase 35 U/L (6-50); Albumin Level 2.4 g/dL (3.5-5.1); Alkaline Phosphatase 130 U/L (38-126); Anion Gap 1 mmol/L (4-12); Aspartate Amino Transferase 33 U/L (17-59); Bilirubin,Total 1.1 mg/dL (0.2-1.3); Blood Urea Nitrogen 24 mg/dL (9-20); Calcium 7.5 mg/dL (8.4-10.2); Carbon Dioxide 26 mmol/L (22-30); Chloride 105 mmol/L (98-107); Estimated CRCL calculation 178 ml/min; Estimated Glomerular Filt Rate > 60; Glucose 196 mg/dL (65-110); Magnesium 2.3 mg/dL (1.6-2.3); Potassium 3.4 mmol/L (3.4-5.0); Sodium 132 mmol/L (137-145); Total Protein 5.4 g/dL (6.3-8.2)
[2024-12-01] MEDS: VANCOMYCIN 2,000 MG/NS 500 ML 2,000 MG/500 ML BAG 250 MG IVPB ×3 (05:36→22:09)
[2024-12-01] MEDS: MEROPENEM 1 GM in SODIUM CHLORIDE 0.9% IV 100 ML 200 ML IVPB ×3 (06:20→22:09)
--- NOTE | 2024-12-01 09:28 | P.PNGS_ITS ---
Progress Note: A&P Assessment and Plan (1) Perforated abdominal viscus: Code(s): R19.8 - Other specified symptoms and signs involving the digestive system and abdomen Status: Acute Assessment and Plan: * Patient with good bowel sounds and having bowel movements. One dark bloody BM this morning, will continue to monitor and repeat labs tomorrow. Wound vac with serosanguineous drainage, no feculent drainage. Will plan to change the wound vac dressing tomorrow and reassess the wound. Will start clear liquids today. (2) Severe sepsis: Code(s): A41.9 - Sepsis, unspecified organism; R65.20 - Severe sepsis without septic shock Status: Acute Assessment and Plan: * Improving. Patient downgraded from ICU to IMU status. Has been off vasopressors and remained stable after extubation a few days ago. Overall downward trend of fevers, continue to monitor. Continue IV antibiotics. (3) Acute hypoxic respiratory failure: Code(s): J96.01 - Acute respiratory failure with hypoxia Status: Acute Assessment and Plan: * Improved, stable since extubation. (4) Open abdominal incision with drainage: Qualifiers: Encounter type: subsequent encounter Qualified Code(s): T81.321D - Disruption or dehiscence of closure of internal operation (surgical) wound of abdominal wall muscle or fascia, subsequent encounter Code(s): T81.321A - Disruption or dehiscence of closure of internal operation (surgical) wound of abdominal wall muscle or fascia, initial encounter Status: Acute Assessment and Plan: * Healing with no sign of fistula either from wound VAC drainage or wound evaluation yesterday. Continue wound VAC therapy and plan for dressing change tomorrow. (5) DVT (deep venous thrombosis): Qualifiers: DVT location: upper extremity Affected thrombotic vein of extremity: axillary Chronicity: acute Laterality: right Qualified Code(s): I82.A11 - Acute embolism and thrombosis of right axillary vein Code(s): I82.409 - Acute embolism and thrombosis of unspecified deep veins of unspecified lower extremity Status: Acute Assessment and Plan: * On therapeutic dose of Lovenox (6) Protein-calorie malnutrition, severe: Code(s): E43 - Unspecified severe protein-calorie malnutrition Status: Acute Assessment and Plan: * Continue TPN today at 60 cc/hr. Will start a clear liquid diet and may be able to titrate down on TPN tomorrow. Plan I have discussed the patient's case and plan of care with Dr. Cortez. Subjective Subjective Date/Time Seen: 12/01/24 09:28 Post Op day: 8 (exploratory laparotomy, ileocolic resection) Patient reports: no new complaints and fever (low grade tmax 100.3F last night. ) Interval history: Patient seen in ICU as IMU overflow. He appears comfortable. He reports some abdominal pain near the abdominal wound, but unchanged from how it has been the past few days. Aggravated by dressing changes. No new pain. He reports a productive cough this morning. He had a BM this morning that the nurse reports as dark red/maroon. Hgb 9.9 this morning with hgb 9.8 yesterday. He denies nausea or vomiting. Exam Const: General: comfortable and no acute distress Orientation/consciousness: patient oriented x3 GI: Inspection: non-distended, incision (midline abdominal wound vac dressing dry and intact) and other (serosanguineous drainage in wound vac canister) GI Palp: Yes Soft to palpation, Yes Tenderness to palpation present (GI) (minimal tenderness near abdominal wound, otherwise nontender) and No Guarding due to palpation present (GI) Auscultation: normal bowel sounds Other: Port site incisions healing well, dry and glue intact without erythema Objective Data Vital Signs Vital Signs: Vital Signs - 24 hr 11/30/24 10:00 11/30/24 10:00 11/30/24 12:00 Temperature 99.5 F 99.4 F Pulse Rate 69 70 71 Respiratory Rate 20 19 Blood Pressure 129/73 143/83 H Pulse Oximetry 94 93 Oxygen Delivery Fraction of Inspired Oxygen 11/30/24 12:00 11/30/24 14:00 11/30/24 14:00 Temperature 99.5 F Pulse Rate 68 66 70 Respiratory Rate 27 H Blood Pressure 150/92 H Pulse Oximetry 92 Oxygen Delivery Fraction of Inspired Oxygen 11/30/24 15:41 11/30/24 15:46 11/30/24 16:00 Temperature 99.6 F Pulse Rate 69 67 Respiratory Rate 20 Blood Pressure 140/80 Pulse Oximetry 94 94 Oxygen Delivery Room Air Fraction of Inspired Oxygen 11/30/24 18:00 11/30/24 20:00 11/30/24 20:00 Temperature 100.3 F H Pulse Rate 75 74 Respiratory Rate 21 H Blood Pressure 142/84 H Pulse Oximetry 94 Oxygen Delivery Room Air Fraction of Inspired Oxygen 11/30/24 20:00 11/30/24 20:43 11/30/24 22:00 Temperature Pulse Rate 77 77 Respiratory Rate Blood Pressure Pulse Oximetry 93 Oxygen Delivery Room Air Fraction of Inspired Oxygen 12/01/24 00:00 12/01/24 00:00 12/01/24 00:00 Temperature 99.4 F Pulse Rate 74 74 Respiratory Rate 22 H Blood Pressure 139/81 Pulse Oximetry 98 Oxygen Delivery Room Air Fraction of Inspired Oxygen 12/01/24 02:00 12/01/24 04:00 12/01/24 04:00 Temperature 99.4 F Pulse Rate 77 75 Respiratory Rate 18 Blood Pressure 137/84 Pulse Oximetry 96 Oxygen Delivery Room Air Fraction of Inspired Oxygen 12/01/24 04:00 12/01/24 06:00 12/01/24 08:00 Temperature Pulse Rate 77 70 78 Respiratory Rate 25 H Blood Pressure Pulse Oximetry 96 Oxygen Delivery Room Air Fraction of Inspired Oxygen 28 12/01/24 08:00 12/01/24 08:00 Temperature 98.4 F Pulse Rate 78 78 Respiratory Rate 25 H Blood Pressure 138/85 Pulse Oximetry 96 Oxygen Delivery Fraction of Inspired Oxygen Intake/Output Intake/Output: Intake & Output 11/28/24 11/29/24 11/30/24 12/01/24 23:59 23:59 23:59 23:59 Intake Total 4352.0 3475.1 3653.3 750 Output Total 4050 3500 3910 1000 Balance 302.0 -24.9 -256.7 -250 Meds/Results Medications: Active Medications Generic Name Dose Route Start Last Admin Trade Name Freq PRN Reason Stop Dose Admin Acetaminophen 650 mg 11/29/24 09:42 Acetaminophen 325 Mg Tablet PO Q4H PRN Mild Pain (1-3) or Fever Hydrocodone Bitart/Acetaminophen 1 tab 11/29/24 09:42 12/01/24 04:33 Hydrocodone/Acetaminophen (*Crx) 5-325 Mg Tablet PO 1 tab Q4H PRN Administration Pain Rated 4-6 Dextrose 12.5 gm 11/24/24 08:03 Dextrose 50% 25 Gm/50 Ml Syringe IV PUSH PRN PRN Hypoglycemia Protocol Enoxaparin Sodium 115 mg 11/28/24 21:00 11/30/24 22:02 Enoxaparin 120 Mg/0.8 Ml Syringe SUB-Q 115 mg Q12HR TAMICA Administration Glucagon 1 mg 11/24/24 08:03 Glucagon For Inj 1 Mg Vial IM PRN PRN Hypoglycemia Protocol Glucose 15 gm 11/24/24 08:03 Glucose Oral Gel 15 Gm Of Glucse In 37.5 Gm Tube PO PRN PRN Hypoglycemia Protocol Hydralazine HCl 20 mg 11/30/24 08:04 Hydralazine Hcl 20 Mg/Ml Vial IV PUSH Q4H PRN SBP more than 160 Dextrose 1,000 mls @ 100 mls/hr 11/24/24 08:03 Dextrose 5% 1,000 Ml IVPB PRN PRN Hypoglycemia Protocol Multivitamins 1.25 ml/ 1,002.5 mls @ 60 mls/hr 11/25/24 15:00 11/30/24 13:49 Multivitamins 1.25 ml/ Amino IV CONT 40 mls/hr Acids/Dextrose .[id number] TAMICA Administration Protocol Dextrose 1,000 mls @ 50 mls/hr 11/25/24 14:02 Dextrose 10% IV CONT .Q20H PRN if PN is interrupted Fat Emulsion Intravenous 250 mls @ 20.833 mls/hr 11/25/24 15:00 12/01/24 03:36 Lipids 20% IVPB Infused Q24H TAMICA Infusion Meropenem 1 gm/ Sodium 100 mls @ 200 mls/hr 11/26/24 15:00 12/01/24 06:20 Chloride IVPB 200 mls/hr Q8H TAMICA Administration Vancomycin HCl 2,000 mg in 500 mls @ 250 mls/hr 11/29/24 06:00 12/01/24 05:36 Vancomycin 2,000 Mg/Ns 500 Ml IVPB 250 mls/hr Q8H TAMICA Administration Insulin Aspart 3 - 6 units 11/24/24 09:00 12/01/24 05:35 Insulin Aspart (*Bkc) 100 Units/Ml SUB-Q Not Given Q4H [facility] Protocol Insulin Glargine 18 units 11/30/24 09:00 11/30/24 09:22 Insulin Glargine (*Bkc) 100 Units/Ml SUB-Q 18 units DAILY TAMICA Administration Ipratropium Erwin 0.5 mg 11/30/24 09:51 Ipratropium Br 0.02% Inh Soln 0.5 Mg/2.5 Ml Vial INHALATION Q6HRT PRN Wheezing Levalbuterol HCl 0.63 mg 11/30/24 09:51 Levalbuterol Neb 1.25 Mg/3 Ml INHALATION Q6HRT PRN Wheezing Melatonin 5 mg 11/30/24 19:20 Melatonin 5 Mg Tablet PO HS PRN sleep Morphine Sulfate 4 mg 11/29/24 09:42 12/01/24 00:06 Morphine Sulfate (*Crx) 4 Mg/Ml Inj IV PUSH 4 mg Q2H PRN Administration Pain Rated 7-10 Pantoprazole Sodium 40 mg 12/01/24 09:00 Pantoprazole 40 Mg Tablet PO QAM TAMICA Sodium Chloride 10 ml 11/23/24 14:00 12/01/24 04:35 Central Line Flush IV PUSH 10 ml Q8HR TAMICA Administration Sodium Chloride 10 ml 11/23/24 13:39 Central Line Flush IV PUSH PRN PRN with TPN bag changes Sodium Chloride 20 ml 11/23/24 13:39 Central Line Flush IV PUSH PRN PRN after blood draws Radiology Results: ITS Impressions Chest CTA 11/23/24 05:53 IMPRESSION: 1. Free intraperitoneal air in the upper abdomen. Correlate for recent surgery. In the absence of known surgery this is most likely secondary to bowel perforation. Clinically correlate. 2: No large central pulmonary embolism. Limited evaluation of the secondary and tertiary pulmonary arteries. 3: Small right pleural effusion. Dependent atelectasis. 4: Ascites. Abdomen/Pelvis CT 11/23/24 13:00 IMPRESSION: 1. Increasing free intraperitoneal air 11/22/2024, suspicious for bowel leak. Increasing fluid in the mesentery with ascites involving the perihepatic space. No discrete abscess identified. Consider correlation with contrast-enhanced CT abdomen. 2: Increasing consolidation of the lower lobes which may represent atelectasis or pneumonia. 3: Developing small pleural effusions. Abdomen X-Ray 11/23/24 14:04 IMPRESSION: 1: NG tube tip in the stomach. 2: Bibasilar airspace disease, edema versus pneumonia. Head CT 11/26/24 14:47 Impression: No acute intracranial hemorrhage or suspicious mass effect. Chest/Abdomen/Pelvis CTA 11/26/24 14:58 IMPRESSION: No pulmonary embolus. No aortic dissection. Small bilateral pleural effusions, right greater than left with adjacent consolidation, an interval change from prior. Gallbladder distention with mural thickening and surrounding inflammatory change. Right middle and lower lobe nodules, for which follow-up may be performed once patient is beyond this acute phase. No discrete intraperitoneal air is appreciated. Simple free fluid within the dependent portions of the abdomen. Venous Doppler Study 11/28/24 11:19 IMPRESSION: 1. Deep venous thrombosis of the right subclavian, axillary and brachial veins. Dr. Kam Gongora discussed with the gas station clerk]Kurt Castaneda at 11/28/2024 11:23 CDT. Chest X-Ray 12/01/24 06:08 IMPRESSION: Small left-sided pleural effusion without focal infiltrate. Labs Labs: Laboratory Results - last 24 hr 11/30/24 11/30/24 11/30/24 12:40 15:32 19:56 WBC RBC Hgb Hct MCV MCH MCHC RDW Plt Count MPV Immature Gran % (Auto) Neut % (Auto) Lymph % (Auto) [place] % (Auto) Eos % (Auto) Baso % (Auto) Lymph # (Auto) [place] # (Auto) Eos # (Auto) Baso # (Auto) Abs Immat Gran (auto) Absolute Neuts (auto) Absolute Nucleated RBC Nucleated RBC % Sodium 135 L Potassium 3.4 Chloride 106 Carbon Dioxide 27 Anion Gap 2 L BUN 22 H Creatinine 0.50 L Estim Creat Clear Calc 178 Estimated GFR > 60 Glucose 174 H POC Capillary Glucose 166 H 167 H Calcium 7.5 L Phosphorus Magnesium Total Bilirubin AST ALT Alkaline Phosphatase Total Protein Albumin Vancomycin Trough 12/01/24 12/01/24 00:02 04:38 WBC 14.4 H RBC 3.11 L Hgb 9.9 L Hct 28.9 L MCV 92.9 MCH 31.8 MCHC 34.3 RDW 12.4 Plt Count 353 MPV 10.6 H Immature Gran % (Auto) 1.5 H Neut % (Auto) 84.7 H Lymph % (Auto) 8.2 L [place] % (Auto) 4.9 Eos % (Auto) 0.5 Baso % (Auto) 0.2 Lymph # (Auto) 1.18 [place] # (Auto) 0.7 H Eos # (Auto) 0.1 Baso # (Auto) 0.0 Abs Immat Gran (auto) 0.22 H Absolute Neuts (auto) 12.2 H Absolute Nucleated RBC 0.000 Nucleated RBC % 0.0 Sodium 132 L Potassium 3.4 Chloride 105 Carbon Dioxide 26 Anion Gap 1 L BUN 24 H Creatinine 0.50 L Estim Creat Clear Calc 178 Estimated GFR > 60 Glucose 196 H POC Capillary Glucose 177 H Calcium 7.5 L Phosphorus 2.0 L Magnesium 2.3 Total Bilirubin 1.1 AST 33 ALT 35 Alkaline Phosphatase 130 H Total Protein 5.4 L Albumin 2.4 L Vancomycin Trough 14.0
[2024-12-01] MEDS: AMINO ACIDS 5%/DEXTROSE 15% 1,000 ML with MULTIVITAMINS-12 INJ VIAL 1 1.25 ML, MULTIVIT... 40 ML IV CONT (09:42)
[2024-12-01] MEDS: INSULIN GLARGINE (*BKC) 100 UNITS/ML 18 UNITS SUB-Q (09:44)
[2024-12-01] MEDS: PANTOPRAZOLE 40 MG TABLET PO (09:44)
[2024-12-01] MEDS: ENOXAPARIN 120 MG/0.8 ML SYRINGE 115 MG SUB-Q (09:44)
[2024-12-01] MEDS: FAT EMULSIONS IV 20% 250 ML 21 ML IVPB (14:51)
--- NOTE | 2024-12-01 14:51 | P.PNIM_ITS ---
Progress Note: A&P Assessment and Plan (1) Acute hypoxic respiratory failure: Code(s): J96.01 - Acute respiratory failure with hypoxia Status: Acute Assessment and Plan: Acute respiratory failure likely related to SIRS/sepsis -11/22: CTA chest: No large central PE, small right pleural effusion, dependent atelectasis, ascites, free intraperitoneal air in the upper abdomen correlate for some recent surgery -patient was initially placed on 10 L nasal cannula, now on high-flow therapy 60 L flow rate and 77% FiO2 -patient significantly tachypneic, breathing 40+ times a minute, with O2 side of 90-92% -11/23: Intubated in the ICU -chest x-ray, ventilator settings and ABGs reviewed this morning. 09/08 PSV SBT done for close to an hour. RSBI, ABGI and Vitals acceptable. Pt awake and following commands. Will extubate and monitor. NPO for now. -continue bronchodilators -off fentanyl. Continue to wean Precedex -discontinued IV fluids -11/26:responded well to Bumex -11/27: Will diurese again today 11/29 Lasix was given. Patient was extubated after a successful weaning trial. 11/30 on 2 L nasal cannula. Continue bronchodilators p.r.n. continue incentive spirometry. Pain control (2) Septic shock: Code(s): A41.9 - Sepsis, unspecified organism; R65.21 - Severe sepsis with septic shock Status: Acute Assessment and Plan: Patient POD #3, tachypneic with hypoxic respiratory failure, lactic acidosis, increasing WBC count, anion gap metabolic acidosis -initial lactic acids were elevated on 11/24/2023 when patient was brought to the ICU, adequately fluid-resuscitated before patient was taken to the OR -sepsis secondary to ruptured appendicitis -11/22: CT scan of the abdomen and pelvis this morning showed postop changes consider the since surgery likely appendectomy, no abscess identified. Small pleural effusion with dependent atelectasis -11/23: Repeat CT scan of the abdomen and pelvis without contrast showed increasing free intraperitoneal air suspicious for bowel leak. Increasing fluid in the mesentery with ascites involving the perihepatic space. No discrete abscess identified. Increasing consolidation of the lower lobes which may represent atelectasis or pneumonia. Developing small pleural effusions -discussed CT results with surgeon, - 11/23: Exploratory laparotomy with ileocolic resection for bowel perforation (cecal perforation) with spillage of bowel contents in the abdominal cavity -OFF ALL PRESSORS, maintain MAP > 65 mmHg or SBP> 100 mmHg -WEAN stress dose steroids -11/24: Blood cultures negative x2 -11/24: Sputum cultures pending -11/24: Urine cultures no growth -continue Zosyn (11/20) and micafungin (11/24) 11/26: Patient has been febrile, Zosyn was discontinued, meropenem and vancomycin added due to consolidation in the right lung > left long as seen on CT scan as under 11/26: CT brain no acute intracranial hemorrhage or suspicious mass effect 11/26: Bilateral lower extremity venous Dopplers were negative for DVTs 11/28: Bilateral upper venous Dopplers showed DVT of the right subclavian, axillary and brachial veins. (patient does have a right arm PICC line. Fevers possibly due to DVT and pneumonia 11/26/2024: CTA chest/abdomen/pelvis IMPRESSION: No pulmonary embolus. No aortic dissection. Small bilateral pleural effusions, right greater than left with adjacent consolidation, an interval change from prior. Gallbladder distention with mural thickening and surrounding inflammatory change. Right middle and lower lobe nodules, for which follow-up may be performed once patient is beyond this acute phase. No discrete intraperitoneal air is appreciated. Simple free fluid within the dependent portions of the abdomen. Fever curve is improving. White count is improving Continue meropenem, vancomycin and micafungin, (3) Status post appendectomy: Onset Date: 11/20/24 Code(s): Z90.49 - Acquired absence of other specified parts of digestive tract Status: Acute Assessment and Plan: 11/20: Discussed with surgery, NG tube will be inserted due to abdominal distension 11/23: Exploratory laparotomy with ileocolic resection for bowel perforation (cecal perforation) with spillage of bowel contents in the abdominal cavity 11/24: Wound VAC placed Treatment plans as above -pain control -11/25: started on TPN after discussing with surgery 11/27: Discussed with surgery, will start trickle tube feeds, started 10 mL, increased to a goal of 20 mL Patient is NPO at this time. General surgery is planning to change wound VAC today. Management per General surgery recommendations (4) DVT (deep venous thrombosis): Qualifiers: DVT location: upper extremity Affected thrombotic vein of extremity: axillary Chronicity: acute Laterality: right Qualified Code(s): I82.A11 - Acute embolism and thrombosis of right axillary vein Code(s): I82.409 - Acute embolism and thrombosis of unspecified deep veins of unspecified lower extremity Status: Acute Assessment and Plan: 11/28: Patient continues to have fevers, bilateral upper extremity venous Doppler with evidence of DVT of the right subclavian, axillary and brachial vein -discuss with surgery regarding therapeutic Lovenox to which the agreeable -11/28: Started patient on therapeutic Lovenox -right PICC line in place (5) Hyperglycemia: Code(s): R73.9 - Hyperglycemia, unspecified Status: Acute Assessment and Plan: Related to stress response and/or steroids -Accu-Cheks and sliding scale insulin -increase dose of Lantus (6) Electrolyte abnormality: Code(s): E87.8 - Other disorders of electrolyte and fluid balance, not elsewhere classified Status: Acute Assessment and Plan: Replace low potassium Plan patient was taken to OR and had emergent exploratory laparotomy, ileocolic resection, patient was transferred to IMU, when I saw the patient he was complaining of severe abdominal pain, I repeat CT scan of the abdomen without contrast and discuss the case with the Senior Medical Billing Specialist Dr. Lugo, who examined the patient and transferred to patient to ICU for close observation and management. appreciate assistance of the ruby on rails consultant and patient was intubated and remain on ventilator, patient has developed septic shock, febrile, blood culture no growth so far, he being weaned off Vasopressors, patient is being treated with Zosyn, and micafungin, patient clinical symptoms are not improving he is requiring increase peep to 12 and FIO2 of 70% patient is seen by ruby on rails consultant, surgery service will monitor and follow. patient was extubated on 11/30, currently on clear liquids and having BM, today there is some blood with stool, surgery is aware, patient is on Lovenox, patient sister is present in the room and gave updates. DVT prophylaxis: Lovenox Stress ulcer prophylaxis: Protonix Nutrition: TPN, feeding as per General surgery Code Status: Full code Incentive spirometry Subjective Date/time seen: 12/01/24 14:51 Interval history: H&P-Narrative Patient is a developed acute hypoxic respiratory failure of uncertain etiology. The patient did at have significant drop in his white count from previous and is now leukopenic instead of having leukocytosis. He remains afebrile. He has been on routine DVT prophylaxis postop with Lovenox. 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 Patient went for stat CT of the chest which was negative for any large vessel PE but more peripheral exam was limited due to contrast timing and motion artifact. The patient is still having right-sided chest pain and has had rapid increase in oxygen requirement up to 10 L nasal cannula. Patient still remains significantly tachypneic and is struggling to ma intain oxygen saturations of 92% on [address] patient on Airvo. ABG demonstrated mild respiratory alkalosis. I had initially ordered a dose of Lasix due to crackles on exam but further laboratory findings demonstrated lactic acidosis in a low serum bicarb. The patient's mucous membranes are dry his lips are peeling. He appears more intervascular volume depleted despite nursing reporting that the patient has drinks 5-6 L of water a day or more and receiving IV fluid hydration. According to the cumulative fluid summary the patient is about 4.5 L positive for admission. Patient has remained on Zosyn since admission. CT of the abdomen pelvis demonstrated stable postoperative findings. It Is unclear if the patient is developing sepsis verses, possible ARDS, pulmonary edema seems less likely given lack of findings on imaging. Stat troponin has been ordered. Will repeat EKG. Will check cheetah score is see if patient is fluid responsive. And check echocardiogram to evaluate cardiac structure and function. Electrolyte panel did demonstrate mild hypokalemia. Will check magnesium level and replace if needed. Will give 40 mEq potassium chloride rider. Given poor contrast timing on CTA will obtain lower extremity Dopplers to rule out DVT. patient was taken to OR and had emergent exploratory laparotomy, ileocolic resection, patient was transferred to IMU, when I saw the patient he was complaining of severe abdominal pain, I repeat CT scan of the abdomen without contrast and discuss the case with the Senior Medical Billing Specialist Dr. Lugo, who examined the patient and transferred to patient to ICU for close observation and management. appreciate assistance of the ruby on rails consultant and patient was intubated and remain on ventilator, patient has developed septic shock, febrile, blood culture no growth so far, he being weaned off Vasopressors, patient is being treated with Zosyn, and micafungin, patient clinical symptoms are not improving he is requiring increase peep to 12 and FIO2 of 70% patient is seen by ruby on rails consultant, surgery service will monitor and follow. patient was extubated on 11/30, currently on clear liquids and having BM, today there is some blood with stool, surgery is aware, patient is on Lovenox, patient sister is present in the room and gave updates. Review of Systems Review of Systems: ROS unobtainable: Yes unobtainable due to mental status Exam Narrative: Patient appears in pain Patient is comfortable, NAD HEENT: eyes are clear and none icteric LUNGS:CTA HEART: RR S1S2 ABD: BS+, distended and tender Lower extremities: no edema SKIN: nonjaundiced Neuro: grossly intact. Objective Data Vital Signs Vital Signs: Vital Signs - 24 hr 11/30/24 15:41 11/30/24 15:46 11/30/24 16:00 Temperature 37.6 C Pulse Rate 69 67 Respiratory Rate 20 Blood Pressure 140/80 Pulse Oximetry 94 94 Oxygen Delivery Room Air Fraction of Inspired Oxygen 11/30/24 18:00 11/30/24 20:00 11/30/24 20:00 Temperature 37.9 C H Pulse Rate 75 74 Respiratory Rate 21 H Blood Pressure 142/84 H Pulse Oximetry 94 Oxygen Delivery Room Air Fraction of Inspired Oxygen 11/30/24 20:00 11/30/24 20:43 11/30/24 22:00 Temperature Pulse Rate 77 77 Respiratory Rate Blood Pressure Pulse Oximetry 93 Oxygen Delivery Room Air Fraction of Inspired Oxygen 12/01/24 00:00 12/01/24 00:00 12/01/24 00:00 Temperature 37.4 C Pulse Rate 74 74 Respiratory Rate 22 H Blood Pressure 139/81 Pulse Oximetry 98 Oxygen Delivery Room Air Fraction of Inspired Oxygen 12/01/24 02:00 12/01/24 04:00 12/01/24 04:00 Temperature 37.4 C Pulse Rate 77 75 Respiratory Rate 18 Blood Pressure 137/84 Pulse Oximetry 96 Oxygen Delivery Room Air Fraction of Inspired Oxygen 12/01/24 04:00 12/01/24 06:00 12/01/24 08:00 Temperature Pulse Rate 77 70 78 Respiratory Rate 25 H Blood Pressure Pulse Oximetry 96 Oxygen Delivery Room Air Fraction of Inspired Oxygen 28 12/01/24 08:00 12/01/24 08:00 12/01/24 10:00 Temperature 36.9 C Pulse Rate 78 78 78 Respiratory Rate 25 H Blood Pressure 138/85 Pulse Oximetry 96 Oxygen Delivery Fraction of Inspired Oxygen 12/01/24 12:00 12/01/24 12:00 12/01/24 12:00 Temperature 38.2 C H Pulse Rate 78 78 76 Respiratory Rate 25 H 23 H Blood Pressure 142/87 H Pulse Oximetry 96 98 Oxygen Delivery Room Air Fraction of Inspired Oxygen 28 Intake/Output Intake/Output: Intake & Output 11/28/24 11/29/24 11/30/24 12/01/24 23:59 23:59 23:59 23:59 Intake Total 4352.0 3475.1 3653.3 2245.3 Output Total 4050 3500 3910 1000 Balance 302.0 -24.9 -256.7 1245.3 Meds/Results Medications: Active Medications Generic Name Dose Route Start Last Admin Trade Name Freq PRN Reason Stop Dose Admin Acetaminophen 650 mg 11/29/24 09:42 Acetaminophen 325 Mg Tablet PO Q4H PRN Mild Pain (1-3) or Fever Hydrocodone Bitart/Acetaminophen 1 tab 11/29/24 09:42 12/01/24 04:33 Hydrocodone/Acetaminophen (*Crx) 5-325 Mg Tablet PO 1 tab Q4H PRN Administration Pain Rated 4-6 Dextrose 12.5 gm 11/24/24 08:03 Dextrose 50% 25 Gm/50 Ml Syringe IV PUSH PRN PRN Hypoglycemia Protocol Enoxaparin Sodium 115 mg 11/28/24 21:00 12/01/24 09:44 Enoxaparin 120 Mg/0.8 Ml Syringe SUB-Q 115 mg Q12HR TAMICA Administration Glucagon 1 mg 11/24/24 08:03 Glucagon For Inj 1 Mg Vial IM PRN PRN Hypoglycemia Protocol Glucose 15 gm 11/24/24 08:03 Glucose Oral Gel 15 Gm Of Glucse In 37.5 Gm Tube PO PRN PRN Hypoglycemia Protocol Hydralazine HCl 20 mg 11/30/24 08:04 Hydralazine Hcl 20 Mg/Ml Vial IV PUSH Q4H PRN SBP more than 160 Dextrose 1,000 mls @ 100 mls/hr 11/24/24 08:03 Dextrose 5% 1,000 Ml IVPB PRN PRN Hypoglycemia Protocol Multivitamins 1.25 ml/ 1,002.5 mls @ 60 mls/hr 11/25/24 15:00 12/01/24 09:42 Multivitamins 1.25 ml/ Amino IV CONT 40 mls/hr Acids/Dextrose .[id number] TAMICA Administration Protocol Dextrose 1,000 mls @ 50 mls/hr 11/25/24 14:02 Dextrose 10% IV CONT .Q20H PRN if PN is interrupted Fat Emulsion Intravenous 250 mls @ 20.833 mls/hr 11/25/24 15:00 12/01/24 03:36 Lipids 20% IVPB Infused Q24H TAMICA Infusion Meropenem 1 gm/ Sodium 100 mls @ 200 mls/hr 11/26/24 15:00 12/01/24 06:50 Chloride IVPB Infused Q8H TAMICA Infusion Vancomycin HCl 2,000 mg in 500 mls @ 250 mls/hr 11/29/24 06:00 12/01/24 14:17 Vancomycin 2,000 Mg/Ns 500 Ml IVPB 250 mls/hr Q8H TAMICA Administration Insulin Aspart 3 - 6 units 11/24/24 09:00 12/01/24 13:51 Insulin Aspart (*Bkc) 100 Units/Ml SUB-Q Not Given Q4H [facility] Protocol Insulin Glargine 18 units 11/30/24 09:00 12/01/24 09:44 Insulin Glargine (*Bkc) 100 Units/Ml SUB-Q 18 units DAILY TAMICA Administration Ipratropium [place] 0.5 mg 11/30/24 09:51 Ipratropium Br 0.02% Inh Soln 0.5 Mg/2.5 Ml Vial INHALATION Q6HRT PRN Wheezing Levalbuterol HCl 0.63 mg 11/30/24 09:51 Levalbuterol Neb 1.25 Mg/3 Ml INHALATION Q6HRT PRN Wheezing Melatonin 5 mg 11/30/24 19:20 Melatonin 5 Mg Tablet PO HS PRN sleep Morphine Sulfate 4 mg 11/29/24 09:42 12/01/24 00:06 Morphine Sulfate (*Crx) 4 Mg/Ml Inj IV PUSH 4 mg Q2H PRN Administration Pain Rated 7-10 Pantoprazole Sodium 40 mg 12/01/24 09:00 12/01/24 09:44 Pantoprazole 40 Mg Tablet PO 40 mg QAM TAMICA Administration Sodium Chloride 10 ml 11/23/24 14:00 12/01/24 13:52 Central Line Flush IV PUSH 10 ml Q8HR TAMICA Administration Sodium Chloride 10 ml 11/23/24 13:39 Central Line Flush IV PUSH PRN PRN with TPN bag changes Sodium Chloride 20 ml 11/23/24 13:39 Central Line Flush IV PUSH PRN PRN after blood draws Radiology Results: ITS Impressions Chest CTA 11/23/24 05:53 IMPRESSION: 1. Free intraperitoneal air in the upper abdomen. Correlate for recent surgery. In the absence of known surgery this is most likely secondary to bowel perforation. Clinically correlate. 2: No large central pulmonary embolism. Limited evaluation of the secondary and tertiary pulmonary arteries. 3: Small right pleural effusion. Dependent atelectasis. 4: Ascites. Abdomen/Pelvis CT 11/23/24 13:00 IMPRESSION: 1. Increasing free intraperitoneal air 11/22/2024, suspicious for bowel leak. Increasing fluid in the mesentery with ascites involving the perihepatic space. No discrete abscess identified. Consider correlation with contrast-enhanced CT abdomen. 2: Increasing consolidation of the lower lobes which may represent atelectasis or pneumonia. 3: Developing small pleural effusions. Abdomen X-Ray 11/23/24 14:04 IMPRESSION: 1: NG tube tip in the stomach. 2: Bibasilar airspace disease, edema versus pneumonia. Head CT 11/26/24 14:47 Impression: No acute intracranial hemorrhage or suspicious mass effect. Chest/Abdomen/Pelvis CTA 11/26/24 14:58 IMPRESSION: No pulmonary embolus. No aortic dissection. Small bilateral pleural effusions, right greater than left with adjacent consolidation, an interval change from prior. Gallbladder distention with mural thickening and surrounding inflammatory change. Right middle and lower lobe nodules, for which follow-up may be performed once patient is beyond this acute phase. No discrete intraperitoneal air is appreciated. Simple free fluid within the dependent portions of the abdomen. Venous Doppler Study 11/28/24 11:19 IMPRESSION: 1. Deep venous thrombosis of the right subclavian, axillary and brachial veins. Dr. Kam Gongora discussed with the cost accounting clerk]Kurt Castaneda at 11/28/2024 11:23 CDT. Chest X-Ray 12/01/24 06:08 IMPRESSION: Small left-sided pleural effusion without focal infiltrate. Labs Labs: Laboratory Results - last 24 hr 11/30/24 11/30/24 12/01/24 15:32 19:56 00:02 WBC RBC Hgb Hct MCV MCH MCHC RDW Plt Count MPV Immature Gran % (Auto) Neut % (Auto) Lymph % (Auto) [place] % (Auto) Eos % (Auto) Baso % (Auto) Lymph # (Auto) [place] # (Auto) Eos # (Auto) Baso # (Auto) Abs Immat Gran (auto) Absolute Neuts (auto) Absolute Nucleated RBC Nucleated RBC % Sodium 135 L Potassium 3.4 Chloride 106 Carbon Dioxide 27 Anion Gap 2 L BUN 22 H Creatinine 0.50 L Estim Creat Clear Calc 178 Estimated GFR > 60 Glucose 174 H POC Capillary Glucose 167 H 177 H Calcium 7.5 L Phosphorus Magnesium Total Bilirubin AST ALT Alkaline Phosphatase Total Protein Albumin Vancomycin Trough 12/01/24 12/01/24 12/01/24 04:38 09:41 13:44 WBC 14.4 H RBC 3.11 L Hgb 9.9 L Hct 28.9 L MCV 92.9 MCH 31.8 MCHC 34.3 RDW 12.4 Plt Count 353 MPV 10.6 H Immature Gran % (Auto) 1.5 H Neut % (Auto) 84.7 H Lymph % (Auto) 8.2 L [place] % (Auto) 4.9 Eos % (Auto) 0.5 Baso % (Auto) 0.2 Lymph # (Auto) 1.18 [place] # (Auto) 0.7 H Eos # (Auto) 0.1 Baso # (Auto) 0.0 Abs Immat Gran (auto) 0.22 H Absolute Neuts (auto) 12.2 H Absolute Nucleated RBC 0.000 Nucleated RBC % 0.0 Sodium 132 L Potassium 3.4 Chloride 105 Carbon Dioxide 26 Anion Gap 1 L BUN 24 H Creatinine 0.50 L Estim Creat Clear Calc 178 Estimated GFR > 60 Glucose 196 H POC Capillary Glucose 185 H 183 H Calcium 7.5 L Phosphorus 2.0 L Magnesium 2.3 Total Bilirubin 1.1 AST 33 ALT 35 Alkaline Phosphatase 130 H Total Protein 5.4 L Albumin 2.4 L Vancomycin Trough 14.0 Quality VTE Prophylaxis VTE prophylaxis: pharmacologic ordered
[2024-12-01] MEDS: MELATONIN 5 MG TABLET PO (22:10)
[2024-12-02] VITALS (18 sets, daily range): BP systolic 96–149; BP diastolic 57–86; PULSE 63–82; RESP 19–25; TEMP 36.9–38.4; O2SAT 95–100
[2024-12-02] MEDS: CENTRAL LINE FLUSH 10 ML IV PUSH ×3 (05:09→20:38)
[2024-12-02 05:24] LABS: Hematocrit 26.2 % (42.0-52.0); Hemoglobin 8.7 g/dL (14.0-18.0); Mean Corpuscular HGB Conc 33.2 g/dl (32-36); Mean Corpuscular Hemoglobin 30.9 pg (26-34); Mean Corpuscular Volume 92.9 fl (80-100); Platelet Count Result 374 k/mm3 (150-375); Red Blood Count 2.82 M/mm3 (4.6-6.20); White Blood Count 13.2 K/mm3 (4.5-10.0)
[2024-12-02 05:45] LABS: Alanine Aminotransferase 43 U/L (6-50); Albumin Level 2.3 g/dL (3.5-5.1); Alkaline Phosphatase 172 U/L (38-126); Anion Gap 3 mmol/L (4-12); Aspartate Amino Transferase 47 U/L (17-59); Bilirubin,Total 0.9 mg/dL (0.2-1.3); Blood Urea Nitrogen 21 mg/dL (9-20); Calcium 7.3 mg/dL (8.4-10.2); Carbon Dioxide 25 mmol/L (22-30); Chloride 103 mmol/L (98-107); Estimated CRCL calculation 179 ml/min; Estimated Glomerular Filt Rate > 60; Glucose 164 mg/dL (65-110); Magnesium 2.3 mg/dL (1.6-2.3); Potassium 2.9 mmol/L (3.4-5.0); Sodium 131 mmol/L (137-145); Total Protein 5.1 g/dL (6.3-8.2)
[2024-12-02] MEDS: HYDROcodone/acetaminophen (*CRX) 5-325 MG TABLET 1 TAB PO ×2 (05:47→20:20)
[2024-12-02] MEDS: VANCOMYCIN 2,000 MG/NS 500 ML 2,000 MG/500 ML BAG 250 MG IVPB ×3 (05:48→23:27)
[2024-12-02] MEDS: MEROPENEM 1 GM in SODIUM CHLORIDE 0.9% IV 100 ML 200 ML IVPB ×3 (05:58→22:42)
[2024-12-02] MEDS: INSULIN GLARGINE (*BKC) 100 UNITS/ML 18 UNITS SUB-Q (09:50)
[2024-12-02] MEDS: PANTOPRAZOLE 40 MG TABLET PO ×2 (09:51→20:21)
--- NOTE | 2024-12-02 10:30 | P.CONGI_ITS ---
Assessment and Plan Assessment and plan (1) ABLA (acute blood loss anemia): Code(s): D62 - Acute posthemorrhagic anemia Status: Acute (2) Melena: Code(s): K92.1 - Melena Status: Acute (3) Diarrhea: Qualifiers: Diarrhea type: unspecified type Qualified Code(s): R19.7 - Diarrhea, unspecified Code(s): R19.7 - Diarrhea, unspecified Status: Acute Plan 1. ABLA/melena/diarrhea: Patient has never had an EGD. Last colonoscopy 10/13/2023 with hyperplastic polyps removed. Patient had a proximal fibula fracture on November 05. He admitted for acute pancreatitis with perforation and had an open appendectomy performed November 20. Patient then had exploratory laparotomy performed 11/23/2024 for bowel perforation sepsis and a ileocolonic resection was performed. Patient had been on TPN and did not start having bowel movements post surgery until 2 days ago over the past 24 hours he has been having diarrhea and BM today was large and black. He has mild nausea without vomiting. He denies any known use of NSAIDs prior to admission but he does have some confusion post intubation. He was on Lovenox for DVT but this is currently on hold. Labs today show WBCs 13, HGB 9, HCT 26, MCV 93, platelets 374. Prior to surgery the patient's hemoglobin was at 16. DDX: PUD vs AVM vs trauma from orogastric tube or intubation earlier this admission vs small bowel source less likely secondary to recent surgery given the dark color of stool. * diarrhea likely related to tube feeding and upper GI bleed * Continue PPI * EGD today * Keep patient NPO * Further recommendations to follow endoscopy Thank you very much for allowing me to share in the care of this very nice patient. This report may have been done utilizing a voice recognition system. Attempts have been made to correct errors. However, there may be uncorrected grammatical, spelling, and recognition errors present. GI Consult Note Consult date/time: 12/02/24 10:30 Reason for consult: Acute GI bleed HPI: Chris Calvillo is a 54 year old male with history of JACKIE, anxiety, HLD, and closed right femoral fracture last month. Patient presented to the emergency room November 20 with complaints of abdominal pain and diarrhea the and was admitted for appendicitis with perforation. GI has been consulted for acute GI bleed. Patient was accompanied by his sister Araceli throughout the entire visit. Patient had an open appendectomy performed for retrograde appendicitis with generalized peritonitis on 11/20/[address] Cortez. Patient was then taken back to surgery 11/23/2024 for exploratory laparotomy for bowel perforation sepsis and underwent an ileocolonic resection. Patient went into acute hypoxic respiratory failure thought to be secondary to SIRS/sepsis on 11/23 requiring intubation and he was extubated on the . Patient with bilateral upper extremity venous Doppler with evidence of DVT of the right subclavian, axillary and brachial vein on Lovenox, Lovenox held. Patient was receiving tube which have been discontinued with the plan to change to oral intake wants anemia and melena has been addressed. Patient is having incisional abdominal pain secondary to large midline surgical incision with wound VAC in place. He complains of occasional nausea but has not had any vomiting. He has been having diarrhea on tube feedings and started having liquid stools yesterday. Over the past 24 hours his stools have been black and tarry. He denies any bloating, odynophagia, dysphagia, reflux, regurgitation, unexplained weight loss or appetite loss prior to hospitalization. Denies any bright red blood per rectum. Denies any rectal pain. Patient is unable to say if he had been taking NSAIDs prior to admission as he has some confusion following his intubation. Patient's mother had a benign pancreatic tumor but family history of otherwise negative for CRC or IBD. ENDOSCOPY HISTORY: EGD: Patient has never had an EGD COLONOSCOPY: 10/13/[address] Ronquillo for CRC screening Findings: There were 4 5 mm to 12 mm pedunculated polyps observed in the sigmoid colon. The appearance seemed adenomatous in nature. Multiple hot snare polypectomies were performed and polyps were completely excised and retrieved Bx results: Sigmoid polyp, polypectomy: - Hyperplastic polyp. LABS AND STOOL STUDIES: Labs 12/02/2024: Sodium 131, potassium 2.9, BUN 21, creatinine 0.50, GFR >60, calcium 7.3 WBC 13, Hgb 9, Hct 26, MCV 93, platelets 374 Total bilirubin 0.9, AST 47, ALT 43, Alkaline Phos 172, albumin 2.3 Labs 12/01/2024: WBC 14, Hgb 10, Hct 29, MCV 93, platelets 353 Sodium 132, potassium 3.4, BUN 24, creatinine 0.50, GFR >60, calcium 7.5 Total bilirubin 1.1, AST 33, ALT 35, Alkaline Phos 130, albumin 2.4 INR 1.1 (11/28/2024) IMAGING: CTA chest/abd/pelvis w/contrast 11/26/2024: IMPRESSION: No pulmonary embolus. No aortic dissection. Small bilateral pleural effusions, right greater than left with adjacent consolidation, an interval change from prior. Gallbladder distention with mural thickening and surrounding inflammatory change. Right middle and lower lobe nodules, for which follow-up may be performed once patient is beyond this acute phase. No discrete intraperitoneal air is appreciated. Simple free fluid within the dependent portions of the abdomen. CT abd/pelvis w/o contrast 11/23/2024: IMPRESSION: 1. Increasing free intraperitoneal air 11/22/2024, suspicious for bowel leak. Increasing fluid in the mesentery with ascites involving the perihepatic space. No discrete abscess identified. Consider correlation with contrast-enhanced CT abdomen. 2: Increasing consolidation of the lower lobes which may represent atelectasis or pneumonia. 3: Developing small pleural effusions. CT abd/pelvis w/contrast 11/20/2024: IMPRESSION: Severe appendicitis, with findings concerning for wall breakdown/necrosis and appendiceal rupture. No periappendiceal abscess. Review of Systems 2 Constitutional: Constitutional: Reports as per HPI ENT: Reports as per HPI Cardiovascular: Cardiovascular: Reports as per HPI, Denies chest pain and Denies dyspnea Respiratory: Respiratory: Denies cough, Denies hemoptysis and Denies dyspnea Gastrointestinal: Gastrointestinal: Reports as per HPI, Reports melena and Reports nausea Genitourinary: Genitourinary: Reports no additional male genitourinary complaints Comments: saleh Musculoskeletal: Musculoskeletal: Reports as per HPI Integumentary/Breasts: Skin/Breast: Reports as per HPI and Reports wounds Psychiatric: Psychiatric: Reports as per HPI Endocrine: Endocrine: Reports no additional endocrine complaints Hematologic/Lymphatic: Hematologic/Lymphatic: Reports no additional hematologic/lymphatic complaints [facility] Past Medical History Medical History Obstructive sleep apnea Anxiety disorder, unspecified Pure hypercholesterolemia Erectile dysfunction Umbilical hernia Closed right fibular fracture November 2024 Surgical History Surgical History Status post appendectomy (11/20/24) Due to perforated appendicitis with generalized peritonitis H/O colonoscopy October 2023, Dr Ronquillo Family History Family History Other Diabetes mellitus Social History Social History Social History: The patient is a former smoker. He drinks a couple of beers each night. He he denies history of illicit substance use. 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 He has a 13-year-old son. He denies illicit substance use. Code status: Full code Surrogate decision maker: Araceli Simms (sister) Smoking packs per day: 1 Smoking cigarettes per day: 20.0 Years smoked: 16 Smoking pack-years: 16.00 Smoking status: Former smoker Tobacco type: cigarettes Second hand tobacco smoke exposure: No Smoking end date: 05/04/05 Alcohol intake: current Drinks per week: 14 Alcohol use details: social Substance use: never Substance use type: does not use Do You Feel Safe in your Home?: Yes Lack of Transportation: No Lack of Food: Never True Current Housing: I Have Housing Concerned About Future Housing: No Difficulty Paying Gas/Electric Bills: No Difficulty Paying for Meds: No Currently Unemployed: No Education: Trade/Vocational Certificate Difficulty w/ Childcare or Family Care: No Living arrangements: with family Occupation/Education: occupation Gender identity (if verbalized by the patient): Male Sexual Orientation (if Verbalized by the Patient): Straight or Heterosexual Spiritual care concerns: No Meds Home Medications and Allergies Home Medications ?Medication ?Instructions ?Recorded ?Confirmed ?Type tadalafil 5 mg tablet See Rx Instructions .Route 10/31/24 11/20/24 Rx .COMPLEX #90 tabs fluticasone propionate 93 1 spray intranasal Q12H 11/20/24 11/20/24 History mcg/actuation breath activated aerosol (Xhance) Allergies Allergy/AdvReac Type Severity Reaction Status Date / Time No Known Allergies Allergy Unknown Verified 11/23/24 23:23 Vital Signs Vital Signs - 24 hr 12/01/24 12:00 12/01/24 12:00 12/01/24 12:00 Temperature 100.8 F H Pulse Rate 78 78 76 Respiratory Rate 25 H 23 H Blood Pressure 142/87 H Pulse Oximetry 96 98 Oxygen Delivery Room Air Fraction of Inspired Oxygen 28 12/01/24 14:00 12/01/24 16:00 12/01/24 16:00 Temperature Pulse Rate 72 75 75 Respiratory Rate 24 H Blood Pressure Pulse Oximetry 96 Oxygen Delivery Room Air Fraction of Inspired Oxygen 28 12/01/24 16:00 12/01/24 18:00 12/01/24 20:00 Temperature 100.4 F H 100.7 F H Pulse Rate 75 78 82 Respiratory Rate 24 H 20 Blood Pressure 140/75 141/82 H Pulse Oximetry 96 98 Oxygen Delivery Fraction of Inspired Oxygen 12/01/24 20:00 12/01/24 20:00 12/01/24 22:00 Temperature Pulse Rate 79 68 Respiratory Rate Blood Pressure Pulse Oximetry Oxygen Delivery Room Air Fraction of Inspired Oxygen 12/02/24 00:00 12/02/24 00:00 12/02/24 00:00 Temperature 99.6 F Pulse Rate 68 67 Respiratory Rate 19 Blood Pressure 136/79 Pulse Oximetry 96 Oxygen Delivery Room Air Fraction of Inspired Oxygen 12/02/24 02:00 12/02/24 04:00 12/02/24 04:00 Temperature Pulse Rate 69 63 Respiratory Rate Blood Pressure Pulse Oximetry Oxygen Delivery Room Air Fraction of Inspired Oxygen 12/02/24 04:00 12/02/24 06:00 12/02/24 08:00 Temperature 99.7 F H 100 F H Pulse Rate 71 68 82 Respiratory Rate 21 H 21 H Blood Pressure 138/79 137/83 Pulse Oximetry 98 95 Oxygen Delivery Fraction of Inspired Oxygen Exam 2 Const: General: cooperative, healthy appearing, comfortable, no acute distress and well developed Orientation/consciousness: oriented to person, oriented to place, oriented to time and patient oriented x3 HENMT: Head: normal to inspection, normocephalic and atraumatic Mouth: Yes Normal oral and palatal mucosa present and Yes moist mucous membranes Eyes: General: appearance normal, both eyes and all related structures C onjunctivae: conjunctivae normal Sclera: sclerae normal Pupils: Equal, round and reactive pupils present Neck: Neck: normal visual inspection Chest: Chest palpation & inspection: normal inspection of the chest Resp: Effort & Inspection: normal respiratory effort and able to speak in complete sentences Auscultation: clear to auscultation bilaterally Cardio: Jugular venous distension: no JVD Rate: regular rate Rhythm: r egular rhythm Heart sounds: S1 normal heart sound present and S2 normal heart sound present GI: Inspection: distended GI Palp: Yes Soft to palpation, Yes Tenderness to palpation present (GI) and Yes Guarding due to palpation present (GI) A uscultation: normal bowel sounds Rectal Exam: deferred Other: patient has large midline incision with wound vac in place Urinary Catheter: Urinary Catheter: patent and draining Skin: General skin exam: normal color and no rashes or lesions noted W ounds: wounds noted Neuro: General: oriented to person, oriented to place, oriented to time and patient oriented x3 Cranial nerves: Yes Equal, round and reactive pupils present Speech: normal speech Extrem: Other: broken right leg Psych: Appearance: grossly normal and well kempt Affect: normal affect Results Labs 12/02/24 05:12 12/02/24 05:12 Labs: Short CBC 12/02/24 Range/Units 05:12 WBC 13.2 H (4.5-10.0) K/mm3 Hgb 8.7 L (14.0-18.0) g/dL Hct 26.2 L (42.0-52.0) % Plt Count 374 (150-375) k/mm3 BMP 12/02/24 05:12 Sodium 131 L Potassium 2.9 L Chloride 103 Carbon Dioxide 25 BUN 21 H Creatinine 0.50 L Glucose 164 H Calcium 7.3 L Liver Function 12/02/24 Range/Units 05:12 Total Bilirubin 0.9 (0.2-1.3) mg/dL AST 47 (17-59) U/L ALT 43 (6-50) U/L Alkaline Phosphatase 172 H (38-126) U/L Albumin 2.3 L (3.5-5.1) g/dL
[2024-12-02] MEDS: MORPHINE SULFATE (*CRX) 4 MG/ML INJ IV PUSH (10:32)
--- NOTE | 2024-12-02 10:38 | PCPTNOTE ---
Attempted to see pt for PT evaluation however pt getting ready to have a wound vac change. Will continue to follow.
--- NOTE | 2024-12-02 10:38 | PCOTNOTE ---
Attempted to see pt for OT evaluation however pt getting ready to have a wound vac change. Will continue to follow.
--- NOTE | 2024-12-02 11:13 | PCNFU ---
Nutrition Follow-Up Complete: Altered GI function as related to Perforated Bowel as evidenced by NPO. Goal: Meet estimated nutritional needs. Patient will continue current goal. Pt current nutrition is TPN at 60 ml/hr. Last recorded weight is 119.4 kg, up from 112.9 kg on admit. Bowel Motility: Glu 164, BUN 21, Cr 0.5, Alb 2.3, Na 131, Hct 26.2, Hgb 8.7 Labs Reviewed:Glu 164, BUN 21, Alb 2.3, K 2.9, Na 131 Meds Noted: Lantus, NovoLog, Lovenox, Clinimix E 5/15 at 60 ml/hr with 250 ml of 20% Lipid Emulsion. Skin: wound vac-abdomen. Additional Notes: Spoke with nursing today, Patient is now NPO for GI bleed. TPN remains advancing to 60 ml/hr today. Total Nutrition: 1522 kcal/72 gm protein. Providing 92% kcal needs at 22 kcal/kg IBW and 48% protein needs at 2.0 gm/kg IBW. Agree with diet orders at this time. Will monitor weight, labs, skin, diet orders, meds every Thursday and Thursday.
[2024-12-02] MEDS: PANTOPRAZOLE SODIUM IV 80 MG in SODIUM CHLORIDE 0.9% IV 500 ML 50 MG IV CONT (11:21)
[2024-12-02] MEDS: AMINO ACIDS 5%/DEXTROSE 15% 1,000 ML with MULTIVITAMINS-12 INJ VIAL 1 1.25 ML, MULTIVIT... 60 ML IV CONT (11:22)
[2024-12-02 11:48] LABS: Hematocrit 25.3 % (42.0-52.0); Hemoglobin 8.9 g/dL (14.0-18.0)
--- NOTE | 2024-12-02 11:48 | P.PNGS_ITS ---
Progress Note: A&P Assessment and Plan (1) Perforated abdominal viscus: Code(s): R19.8 - Other specified symptoms and signs involving the digestive system and abdomen Status: Acute Assessment and Plan: Overall continuing to improve nicely. He is awake and alert. Fully lucid. Tolerated liquids with no evidence of stool in the wound VAC canister or in the base of the wound. Continue IV antibiotics. Continue wound VAC therapy. He is currently NPO due to melena and pending GI evaluation. Will advance to soft diet once the GI bleeding issue has been further evaluated. (2) Status post appendectomy: Onset Date: 11/20/24 Code(s): Z90.49 - Acquired absence of other specified parts of digestive tract Status: Acute Assessment and Plan: Initial procedure prior to the cecal perforation and ileocolic resection. (3) Melena: Code(s): K92.1 - Melena Status: Acute Assessment and Plan: H&H slowly decreasing. GI has been consulted and patient is now on Protonix drip. I spoke with the nurse practitioner from Gastroenterology and it seems as though EGD is planned in the near future. Unlikely this is due to the ileocolic resection anastomosis but that is also a consideration. (4) Open abdominal incision with drainage: Qualifiers: Encounter type: subsequent encounter Qualified Code(s): T81.321D - Disruption or dehiscence of closure of internal operation (surgical) wound of abdominal wall muscle or fascia, subsequent encounter Code(s): T81.321A - Disruption or dehiscence of closure of internal operation (surgical) wound of abdominal wall muscle or fascia, initial encounter Status: Acute Assessment and Plan: Healing well with wound VAC therapy. No changes (5) Protein-calorie malnutrition, severe: Code(s): E43 - Unspecified severe protein-calorie malnutrition Status: Acute Assessment and Plan: Will increase TPN to 70 cc an hour. Advance diet to soft once patient can eat again. (6) DVT (deep venous thrombosis): Qualifiers: DVT location: upper extremity Affected thrombotic vein of extremity: axillary Chronicity: acute Laterality: right Qualified Code(s): I82.A11 - Acute embolism and thrombosis of right axillary vein Code(s): I82.409 - Acute embolism and thrombosis of unspecified deep veins of unspecified lower extremity Status: Acute Assessment and Plan: Right axillary DVT associated with PICC line. PICC line still working well. (7) Chronic anticoagulation: Code(s): Z79.01 - longterm (current) use of anticoagulants Status: Acute Assessment and Plan: Therapeutic dose of Lovenox has been stopped. Would recommend heparin drip when anticoagulation to be restarted. Subjective Subjective Date/Time Seen: 12/02/24 11:48 Post Op day: #9 Patient reports: pain is less, tolerating liquids well, bowel movement, blood in stool (Maroon stools suggestive of GI bleeding) and afebrile Exam Const: General: cooperative, comfortable, alert and awake Nutritional Appe arance: well nourished Orientation/consciousness: patient oriented x3 and No confusion GI: Inspection: abdominal wall ecchymosis (Trocar site bruising), obesity, no visible herniation and other (Abdominal wound looks good, no stool in canister or in base of wound.) GI Palp: Yes Firmness to palpation present (GI), Yes Tenderness to palpation present (GI), No Guarding due to palpation present (GI), No Hernia present and No Palpable mass present Auscultation: normal bowel sounds Objective Data Vital Signs Vital Signs: Vital Signs - 24 hr 12/01/24 12:00 12/01/24 12:00 12/01/24 12:00 Temperature 38.2 C H Pulse Rate 78 78 76 Respiratory Rate 25 H 23 H Blood Pressure 142/87 H Pulse Oximetry 96 98 Oxygen Delivery Room Air Fraction of Inspired Oxygen 12/01/24 14:00 12/01/24 16:00 12/01/24 16:00 Temperature Pulse Rate 72 75 75 Respiratory Rate 24 H Blood Pressure Pulse Oximetry 96 Oxygen Delivery Room Air Fraction of Inspired Oxygen 12/01/24 16:00 12/01/24 18:00 12/01/24 20:00 Temperature 38.0 C H 38.2 C H Pulse Rate 75 78 82 Respiratory Rate 24 H 20 Blood Pressure 140/75 141/82 H Pulse Oximetry 96 98 Oxygen Delivery Fraction of Inspired Oxygen 12/01/24 20:00 12/01/24 20:00 12/01/24 22:00 Temperature Pulse Rate 79 68 Respiratory Rate Blood Pressure Pulse Oximetry Oxygen Delivery Room Air Fraction of Inspired Oxygen 12/02/24 00:00 12/02/24 00:00 12/02/24 00:00 Temperature 37.6 C Pulse Rate 68 67 Respiratory Rate 19 Blood Pressure 136/79 Pulse Oximetry 96 Oxygen Delivery Room Air Fraction of Inspired Oxygen 12/02/24 02:00 12/02/24 04:00 12/02/24 04:00 Temperature Pulse Rate 69 63 Respiratory Rate Blood Pressure Pulse Oximetry Oxygen Delivery Room Air Fraction of Inspired Oxygen 12/02/24 04:00 12/02/24 06:00 12/02/24 08:00 Temperature 37.6 C H 37.7 C H Pulse Rate 71 68 82 Respiratory Rate 21 H 21 H Blood Pressure 138/79 137/83 Pulse Oximetry 98 95 Oxygen Delivery Fraction of Inspired Oxygen 12/02/24 08:00 12/02/24 08:00 12/02/24 10:00 Temperature Pulse Rate 64 69 Respiratory Rate Blood Pressure Pulse Oximetry 95 Oxygen Delivery Room Air Fraction of Inspired Oxygen Intake/Output Intake/Output: Intake & Output 11/29/24 11/30/24 12/01/24 12/02/24 23:59 23:59 23:59 23:59 Intake Total 3475.1 3653.3 3605.3 2452.5 Output Total 3500 3910 2550 1775 Balance -24.9 -256.7 1055.3 677.5 Meds/Results Medications: Active Medications Generic Name Dose Route Start Last Admin Trade Name Freq PRN Reason Stop Dose Admin Acetaminophen 650 mg 11/29/24 09:42 Acetaminophen 325 Mg Tablet PO Q4H PRN Mild Pain (1-3) or Fever Hydrocodone Bitart/Acetaminophen 1 tab 11/29/24 09:42 12/02/24 05:47 Hydrocodone/Acetaminophen (*Crx) 5-325 Mg Tablet PO 1 tab Q4H PRN Administration Pain Rated 4-6 Dextrose 12.5 gm 11/24/24 08:03 Dextrose 50% 25 Gm/50 Ml Syringe IV PUSH PRN PRN Hypoglycemia Protocol Enoxaparin Sodium 115 mg 11/28/24 21:00 12/02/24 10:07 Enoxaparin 120 Mg/0.8 Ml Syringe SUB-Q Not Given Q12HR TAMICA Glucagon 1 mg 11/24/24 08:03 Glucagon For Inj 1 Mg Vial IM PRN PRN Hypoglycemia Protocol Glucose 15 gm 11/24/24 08:03 Glucose Oral Gel 15 Gm Of Glucse In 37.5 Gm Tube PO PRN PRN Hypoglycemia Protocol Hydralazine HCl 20 mg 11/30/24 08:04 Hydralazine Hcl 20 Mg/Ml Vial IV PUSH Q4H PRN SBP more than 160 Dextrose 1,000 mls @ 100 mls/hr 11/24/24 08:03 Dextrose 5% 1,000 Ml IVPB PRN PRN Hypoglycemia Protocol Multivitamins 1.25 ml/ 1,002.5 mls @ 60 mls/hr 11/25/24 15:00 12/02/24 11:22 Multivitamins 1.25 ml/ Amino IV CONT 60 mls/hr Acids/Dextrose .[id number] TAMICA Administration Protocol Dextrose 1,000 mls @ 50 mls/hr 11/25/24 14:02 Dextrose 10% IV CONT .Q20H PRN if PN is interrupted Fat Emulsion Intravenous 250 mls @ 20.833 mls/hr 11/25/24 15:00 12/02/24 02:46 Lipids 20% IVPB Infused Q24H TAMICA Infusion Meropenem 1 gm/ Sodium 100 mls @ 200 mls/hr 11/26/24 15:00 12/02/24 06:28 Chloride IVPB Infused Q8H TAMICA Infusion Vancomycin HCl 2,000 mg in 500 mls @ 250 mls/hr 11/29/24 06:00 12/02/24 07:54 Vancomycin 2,000 Mg/Ns 500 Ml IVPB Infused Q8H TAMICA Infusion Pantoprazole Sodium 80 mg/ 500 mls @ 50 mls/hr 12/02/24 10:15 12/02/24 11:21 Sodium Chloride IV CONT 50 mls/hr .Q10H TAMICA Administration Insulin Aspart 3 - 6 units 11/24/24 09:00 12/02/24 09:51 Insulin Aspart (*Bkc) 100 Units/Ml SUB-Q Not Given Q4H TAMICA Protocol Insulin Glargine 18 units 11/30/24 09:00 12/02/24 09:50 Insulin Glargine (*Bkc) 100 Units/Ml SUB-Q 18 units DAILY TAMICA Administration Ipratropium Nedrow 0.5 mg 11/30/24 09:51 Ipratropium Br 0.02% Inh Soln 0.5 Mg/2.5 Ml Vial INHALATION Q6HRT PRN Wheezing Levalbuterol HCl 0.63 mg 11/30/24 09:51 Levalbuterol Neb 1.25 Mg/3 Ml INHALATION Q6HRT PRN Wheezing Melatonin 5 mg 11/30/24 19:20 12/01/24 22:10 Melatonin 5 Mg Tablet PO 5 mg HS PRN Administration sleep Morphine Sulfate 4 mg 11/29/24 09:42 12/02/24 10:32 Morphine Sulfate (*Crx) 4 Mg/Ml Inj IV PUSH 4 mg Q2H PRN Administration Pain Rated 7-10 Sodium Chloride 10 ml 11/23/24 14:00 12/02/24 05:09 Central Line Flush IV PUSH 10 ml Q8HR TAMICA Administration Sodium Chloride 10 ml 11/23/24 13:39 Central Line Flush IV PUSH PRN PRN with TPN bag changes Sodium Chloride 20 ml 11/23/24 13:39 Central Line Flush IV PUSH PRN PRN after blood draws Radiology Results: ITS Impressions Chest CTA 11/23/24 05:53 IMPRESSION: 1. Free intraperitoneal air in the upper abdomen. Correlate for recent surgery. In the absence of known surgery this is most likely secondary to bowel perforation. Clinically correlate. 2: No large central pulmonary embolism. Limited evaluation of the secondary and tertiary pulmonary arteries. 3: Small right pleural effusion. Dependent atelectasis. 4: Ascites. Abdomen/Pelvis CT 11/23/24 13:00 IMPRESSION: 1. Increasing free intraperitoneal air 11/22/2024, suspicious for bowel leak. Increasing fluid in the mesentery with ascites involving the perihepatic space. No discrete abscess identified. Consider correlation with contrast-enhanced CT abdomen. 2: Increasing consolidation of the lower lobes which may represent atelectasis or pneumonia. 3: Developing small pleural effusions. Abdomen X-Ray 11/23/24 14:04 IMPRESSION: 1: NG tube tip in the stomach. 2: Bibasilar airspace disease, edema versus pneumonia. Head CT 11/26/24 14:47 Impression: No acute intracranial hemorrhage or suspicious mass effect. Chest/Abdomen/Pelvis CTA 11/26/24 14:58 IMPRESSION: No pulmonary embolus. No aortic dissection. Small bilateral pleural effusions, right greater than left with adjacent consolidation, an interval change from prior. Gallbladder distention with mural thickening and surrounding inflammatory change. Right middle and lower lobe nodules, for which follow-up may be performed once patient is beyond this acute phase. No discrete intraperitoneal air is appreciated. Simple free fluid within the dependent portions of the abdomen. Venous Doppler Study 11/28/24 11:19 IMPRESSION: 1. Deep venous thrombosis of the right subclavian, axillary and brachial veins. Dr. Kam Gongora discussed with the suggestion clerk]Kurt Castaneda at 11/28/2024 11:23 CDT. Chest X-Ray 12/02/24 06:08 IMPRESSION: Mild pulmonary vascular congestion with increasing bilateral pleural effusions, as detailed above. Labs Labs: Laboratory Results - last 24 hr 12/01/24 12/01/24 12/01/24 13:44 16:52 20:15 WBC RBC Hgb Hct MCV MCH MCHC RDW Plt Count MPV Sodium Potassium Chloride Carbon Dioxide Anion Gap BUN Creatinine Estim Creat Clear Calc Estimated GFR Glucose POC Capillary Glucose 183 H 123 H 123 H Calcium Phosphorus Magnesium Total Bilirubin AST ALT Alkaline Phosphatase Total Protein Albumin 12/02/24 12/02/24 12/02/24 00:08 04:07 05:12 WBC 13.2 H RBC 2.82 L Hgb 8.7 L Hct 26.2 L MCV 92.9 MCH 30.9 MCHC 33.2 RDW 11.9 Plt Count 374 MPV 10.1 Sodium 131 L Potassium 2.9 L Chloride 103 Carbon Dioxide 25 Anion Gap 3 L BUN 21 H Creatinine 0.50 L Estim Creat Clear Calc 179 Estimated GFR > 60 Glucose 164 H POC Capillary Glucose 154 H 171 H Calcium 7.3 L Phosphorus 2.0 L Magnesium 2.3 Total Bilirubin 0.9 AST 47 ALT 43 Alkaline Phosphatase 172 H Total Protein 5.1 L Albumin 2.3 L 12/02/24 09:46 WBC RBC Hgb Hct MCV MCH MCHC RDW Plt Count MPV Sodium Potassium Chloride Carbon Dioxide Anion Gap BUN Creatinine Estim Creat Clear Calc Estimated GFR Glucose POC Capillary Glucose 154 H Calcium Phosphorus Magnesium Total Bilirubin AST ALT Alkaline Phosphatase Total Protein Albumin
--- NOTE | 2024-12-02 13:19 | PC.NURSE ---
Patient transported to GI lab.
--- NOTE | 2024-12-02 13:49 | WPDANESEPPF ---
Anes - Initial Pre Proc Eval Procedure: Operation Date: 11/20/24 16:30 Proposed Procedures p Laparoscopic Appendectomy - Rojelio Cortez MD Operation Date: 11/23/24 14:30 Proposed Procedures p Exploratory Laparotomy for Possible Bowel Perforation - Rojelio Cortez MD Operation Date: 12/02/24 15:15 Proposed Procedures p Esophagogastroduodenoscopy - Charly Domingo MD Date/Time: 12/02/24 13:49 Surgeon: Rojelio Cortez MD Pre Op Diagnosis: acute hypoxemic respiratory failure Patient Data Age: 54 Gender: M Height: 1.78 m Weight: 119.4 kg Last Vital Signs Temp 36.9 C 12/02/24 13:44 Pulse 74 12/02/24 13:44 Resp 20 12/02/24 13:44 BP 149/82 H 12/02/24 13:44 Pulse Ox 98 12/02/24 13:44 O2 Del Method Room Air 12/02/24 13:44 O2 Flow Rate 1 11/30/24 08:08 FiO2 28 12/01/24 16:00 Allergies Allergy/AdvReac Type Severity Reaction Status Date / Time No Known Allergies Allergy Unknown Verified 11/23/24 23:23 Home Medications ?Medication ?Instructions ?Recorded ?Confirmed ?Type tadalafil 5 mg tablet See Rx Instructions .Route 10/31/24 11/20/24 Rx .COMPLEX #90 tabs fluticasone propionate 93 1 spray intranasal Q12H 11/20/24 11/20/24 History mcg/actuation breath activated aerosol (Xhance) Laboratory Tests 12/01/24 12/01/24 12/02/24 16:52 20:15 00:08 WBC RBC Hgb Hct MCV MCH MCHC RDW Plt Count MPV Sodium Potassium Chloride Carbon Dioxide Anion Gap BUN Creatinine Estim Creat Clear Calc Estimated GFR Glucose POC Capillary Glucose 123 H mg/dl 123 H mg/dl 154 H mg/dl (65-105) (65-105) (65-105) Calcium Phosphorus Magnesium Total Bilirubin AST ALT Alkaline Phosphatase Total Protein Albumin 12/02/24 12/02/24 12/02/24 04:07 05:12 09:46 WBC 13.2 H K/mm3 (4.5-10.0) RBC 2.82 L M/mm3 (4.6-6.20) Hgb 8.7 L g/dL (14.0-18.0) Hct 26.2 L % (42.0-52.0) MCV 92.9 fl (80-100) MCH 30.9 pg (26-34) MCHC 33.2 g/dl (32-36) RDW 11.9 % (11.5-14.5) Plt Count 374 k/mm3 (150-375) MPV 10.1 fl (7.4-10.4) Sodium 131 L mmol/L (137-145) Potassium 2.9 L mmol/L (3.4-5.0) Chloride 103 mmol/L (98-107) Carbon Dioxide 25 mmol/L (22-30) Anion Gap 3 L mmol/L (4-12) BUN 21 H mg/dL (9-20) Creatinine 0.50 L mg/dL (0.7-1.3) Estim Creat Clear Calc 179 ml/min Estimated GFR > 60 (59 - ) Glucose 164 H mg/dL (65-110) POC Capillary Glucose 171 H mg/dl 154 H mg/dl (65-105) (65-105) Calcium 7.3 L mg/dL (8.4-10.2) Phosphorus 2.0 L mg/dL (2.5-4.5) Magnesium 2.3 mg/dL (1.6-2.3) Total Bilirubin 0.9 mg/dL (0.2-1.3) AST 47 U/L (17-59) ALT 43 U/L (6-50) Alkaline Phosphatase 172 H U/L (38-126) Total Protein 5.1 L g/dL (6.3-8.2) Albumin 2.3 L g/dL (3.5-5.1) 12/02/24 12/02/24 11:32 11:41 WBC RBC Hgb 8.9 L g/dL (14.0-18.0) Hct 25.3 L % (42.0-52.0) MCV MCH MCHC RDW Plt Count MPV Sodium Potassium Chloride Carbon Dioxide Anion Gap BUN Creatinine Estim Creat Clear Calc Estimated GFR Glucose POC Capillary Glucose 148 H mg/dl (65-105) Calcium Phosphorus Magnesium Total Bilirubin AST ALT Alkaline Phosphatase Total Protein Albumin Patient hx anesthesia problems: none Family hx anesthesia problems: none Results Review: All pre-operative results and documents have been reviewed as part of the pre-operative evaluation. [facility] Past Medical History Medical History Obstructive sleep apnea Anxiety disorder, unspecified Pure hypercholesterolemia Erectile dysfunction Umbilical hernia Closed right fibular fracture November 2024 Surgical History Surgical History Status post appendectomy (11/20/24) Due to perforated appendicitis with generalized peritonitis H/O colonoscopy October 2023, Dr Ronquillo Family History Family History Other Diabetes mellitus Social History Social History Social History: The patient is a former smoker. He drinks a couple of beers each night. He he denies history of illicit substance use. 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 He has a 13-year-old son. He denies illicit substance use. Code status: Full code Surrogate decision maker: Araceli Simms (sister) Smoking packs per day: 1 Smoking cigarettes per day: 20.0 Years smoked: 16 Smoking pack-years: 16.00 Smoking status: Former smoker Tobacco type: cigarettes Second hand tobacco smoke exposure: No Smoking end date: 05/04/05 Alcohol intake: current Drinks per week: 14 Alcohol use details: social Substance use: never Substance use type: does not use Do You Feel Safe in your Home?: Yes Lack of Transportation: No Lack of Food: Never True Current Housing: I Have Housing Concerned About Future Housing: No Difficulty Paying Gas/Electric Bills: No Difficulty Paying for Meds: No Currently Unemployed: No Education: Trade/Vocational Certificate Difficulty w/ Childcare or Family Care: No Living arrangements: with family Occupation/Education: occupation Gender identity (if verbalized by the patient): Male Sexual Orientation (if Verbalized by the Patient): Straight or Heterosexual Spiritual care concerns: No Anes - Eval Final PreProcedure Day of Procedure 12/02/24 13:49 Patient weight: obese Heart: regular rate and rhythm Lungs: decreased breath sounds Airway: Mallampati scale class III Neurological: alert and oriented Last oral intake: >/= 8 hours ASA classification: III Emergent: no Anesthetic plan: proceed Anesthesia type and monitoring: general GIVS and standard monitoring Results Review: All pre-operative results and documents have been reviewed as part of the pre-operative evaluation. Informed Consent: The patient's anesthetic plan and its attendant risks and benefits were discussed with the patient/family/POA. Questions were solicited and answers provided to the satisfaction of the patient/family/POA.
[2024-12-02] MEDS: LACTATED RINGERS 1,000 ML 150 ML IV CONT (13:53)
--- NOTE | 2024-12-02 13:53 | P.PNIM_ITS ---
Progress Note: A&P Assessment and Plan (1) Acute hypoxic respiratory failure: Code(s): J96.01 - Acute respiratory failure with hypoxia Status: Acute Assessment and Plan: Acute respiratory failure likely related to SIRS/sepsis -11/22: CTA chest: No large central PE, small right pleural effusion, dependent atelectasis, ascites, free intraperitoneal air in the upper abdomen correlate for some recent surgery -patient was initially placed on 10 L nasal cannula, now on high-flow therapy 60 L flow rate and 77% FiO2 -patient significantly tachypneic, breathing 40+ times a minute, with O2 side of 90-92% -11/23: Intubated in the ICU -chest x-ray, ventilator settings and ABGs reviewed this morning. 09/08 PSV SBT done for close to an hour. RSBI, ABGI and Vitals acceptable. Pt awake and following commands. Will extubate and monitor. NPO for now. -continue bronchodilators -off fentanyl. Continue to wean Precedex -discontinued IV fluids -11/26:responded well to Bumex -11/27: Will diurese again today 11/29 Lasix was given. Patient was extubated after a successful weaning trial. 11/30 on 2 L nasal cannula. Continue bronchodilators p.r.n. continue incentive spirometry. 12/02/2024 on room air (2) Septic shock: Code(s): A41.9 - Sepsis, unspecified organism; R65.21 - Severe sepsis with septic shock Status: Acute Assessment and Plan: Patient POD #3, tachypneic with hypoxic respiratory failure, lactic acidosis, increasing WBC count, anion gap metabolic acidosis -initial lactic acids were elevated on 11/24/2023 when patient was brought to the ICU, adequately fluid-resuscitated before patient was taken to the OR -sepsis secondary to ruptured appendicitis -11/22: CT scan of the abdomen and pelvis this morning showed postop changes consider the since surgery likely appendectomy, no abscess identified. Small pleural effusion with dependent atelectasis -11/23: Repeat CT scan of the abdomen and pelvis without contrast showed increasing free intraperitoneal air suspicious for bowel leak. Increasing fluid in the mesentery with ascites involving the perihepatic space. No discrete abscess identified. Increasing consolidation of the lower lobes which may represent atelectasis or pneumonia. Developing small pleural effusions -discussed CT results with surgeon, - 11/23: Exploratory laparotomy with ileocolic resection for bowel perforation (cecal perforation) with spillage of bowel contents in the abdominal cavity -OFF ALL PRESSORS, maintain MAP > 65 mmHg or SBP> 100 mmHg -WEAN stress dose steroids -11/24: Blood cultures negative x2 -11/24: Sputum cultures pending -11/24: Urine cultures no growth -continue Zosyn (11/20) and micafungin (11/24) 11/26: Patient has been febrile, Zosyn was discontinued, meropenem and vancomycin added due to consolidation in the right lung > left long as seen on CT scan as under 11/26: CT brain no acute intracranial hemorrhage or suspicious mass effect 11/26: Bilateral lower extremity venous Dopplers were negative for DVTs 11/28: Bilateral upper venous Dopplers showed DVT of the right subclavian, axillary and brachial veins. (patient does have a right arm PICC line. Fevers possibly due to DVT and pneumonia 11/26/2024: CTA chest/abdomen/pelvis IMPRESSION: No pulmonary embolus. No aortic dissection. Small bilateral pleural effusions, right greater than left with adjacent consolidation, an interval change from prior. Gallbladder distention with mural thickening and surrounding inflammatory change. Right middle and lower lobe nodules, for which follow-up may be performed once patient is beyond this acute phase. No discrete intraperitoneal air is appreciated. Simple free fluid within the dependent portions of the abdomen. Fever curve is improving. White count is improving Continue meropenem, vancomycin and micafungin, Completes micafungin (3) Status post appendectomy: Onset Date: 11/20/24 Code(s): Z90.49 - Acquired absence of other specified parts of digestive tract Status: Acute Assessment and Plan: 11/20: Discussed with surgery, NG tube will be inserted due to abdominal distension 11/23: Exploratory laparotomy with ileocolic resection for bowel perforation (cecal perforation) with spillage of bowel contents in the abdominal cavity 11/24: Wound VAC placed Treatment plans as above -pain control -11/25: started on TPN after discussing with surgery 11/27: Discussed with surgery, will start trickle tube feeds, started 10 mL, increased to a goal of 20 mL Patient is NPO at this time. Wound VAC placed on. Management per General surgery recommendations (4) DVT (deep venous thrombosis): Qualifiers: Affected thrombotic vein of extremity: axillary Chronicity: acute DVT location: upper extremity Laterality: right Qualified Code(s): I82.A11 - Acute embolism and thrombosis of right axillary vein Code(s): I82.409 - Acute embolism and thrombosis of unspecified deep veins of unspecified lower extremity Status: Acute Assessment and Plan: 11/28: Patient continues to have fevers, bilateral upper extremity venous Doppler with evidence of DVT of the right subclavian, axillary and brachial vein -discuss with surgery regarding therapeutic Lovenox to which the agreeable -11/28: Started patient on therapeutic Lovenox -right PICC line in place Lovenox on hold due to GI bleed (5) Hyperglycemia: Code(s): R73.9 - Hyperglycemia, unspecified Status: Acute Assessment and Plan: Related to stress response and/or steroids -Accu-Cheks and sliding scale insulin Adjust dose of insulin as needed (6) Electrolyte abnormality: Code(s): E87.8 - Other disorders of electrolyte and fluid balance, not elsewhere classified Status: Acute Assessment and Plan: Replace low potassium (7) Melena: Code(s): K92.1 - Melena Status: Acute Assessment and Plan: 12/02/2024 having melena Monitor H&H Protonix drip Hold Lovenox GI consultation Plan DVT prophylaxis: Lovenox Stress ulcer prophylaxis: Protonix Nutrition: TPN, feeding as per General surgery Code Status: Full code Incentive spirometry Subjective Date/time seen: 12/02/24 13:53 Interval history: Patient started having dark maroon-colored stool since this a.m.. Denies dizziness or lightheadedness. Denies any increased abdominal pain. No nausea vomiting. Review of Systems Review of Systems: All systems reviewed & are unremarkable except as noted in HPI and below Exam Narrative: Patient is comfortable, NAD HEENT: eyes are clear and none icteric LUNGS:CTA HEART: RR S1S2 ABD: BS+, distended surgical incision site with wound VAC in place Lower extremities: no edema SKIN: nonjaundiced Neuro: grossly intact. Objective Data Vital Signs Vital Signs: Vital Signs - 24 hr 12/01/24 14:00 12/01/24 16:00 12/01/24 16:00 Temperature Pulse Rate 72 75 75 Respiratory Rate 24 H Blood Pressure Pulse Oximetry 96 Oxygen Delivery Room Air Fraction of Inspired Oxygen 28 12/01/24 16:00 12/01/24 18:00 12/01/24 20:00 Temperature 100.4 F H 100.7 F H Pulse Rate 75 78 82 Respiratory Rate 24 H 20 Blood Pressure 140/75 141/82 H Pulse Oximetry 96 98 Oxygen Delivery Fraction of Inspired Oxygen 12/01/24 20:00 12/01/24 20:00 12/01/24 22:00 Temperature Pulse Rate 79 68 Respiratory Rate Blood Pressure Pulse Oximetry Oxygen Delivery Room Air Fraction of Inspired Oxygen 12/02/24 00:00 12/02/24 00:00 12/02/24 00:00 Temperature 99.6 F Pulse Rate 68 67 Respiratory Rate 19 Blood Pressure 136/79 Pulse Oximetry 96 Oxygen Delivery Room Air Fraction of Inspired Oxygen 12/02/24 02:00 12/02/24 04:00 12/02/24 04:00 Temperature Pulse Rate 69 63 Respiratory Rate Blood Pressure Pulse Oximetry Oxygen Delivery Room Air Fraction of Inspired Oxygen 12/02/24 04:00 12/02/24 06:00 12/02/24 08:00 Temperature 99.7 F H 100 F H Pulse Rate 71 68 82 Respiratory Rate 21 H 21 H Blood Pressure 138/79 137/83 Pulse Oximetry 98 95 Oxygen Delivery Fraction of Inspired Oxygen 12/02/24 08:00 12/02/24 08:00 12/02/24 10:00 Temperature Pulse Rate 64 69 Respiratory Rate Blood Pressure Pulse Oximetry 95 Oxygen Delivery Room Air Fraction of Inspired Oxygen 12/02/24 12:00 12/02/24 12:00 12/02/24 12:00 Temperature 100 F H Pulse Rate 68 66 Respiratory Rate 19 Blood Pressure 136/78 Pulse Oximetry 98 98 Oxygen Delivery Room Air Fraction of Inspired Oxygen 12/02/24 12:00 12/02/24 13:44 Temperature 98.5 F Pulse Rate 74 Respiratory Rate 20 Blood Pressure 149/82 H Pulse Oximetry 98 98 Oxygen Delivery Room Air Room Air Fraction of Inspired Oxygen Intake/Output Intake/Output: Intake & Output 11/29/24 11/30/24 12/01/24 12/02/24 23:59 23:59 23:59 23:59 Intake Total 3475.1 3653.3 3605.3 2452.5 Output Total 3500 3910 2550 1775 Balance -24.9 -256.7 1055.3 677.5 Meds/Results Medications: Active Medications Generic Name Dose Route Start Last Admin Trade Name Freq PRN Reason Stop Dose Admin Acetaminophen 650 mg 11/29/24 09:42 Acetaminophen 325 Mg Tablet PO Q4H PRN Mild Pain (1-3) or Fever Hydrocodone Bitart/Acetaminophen 1 tab 11/29/24 09:42 12/02/24 05:47 Hydrocodone/Acetaminophen (*Crx) 5-325 Mg Tablet PO 1 tab Q4H PRN Administration Pain Rated 4-6 Dextrose 12.5 gm 11/24/24 08:03 Dextrose 50% 25 Gm/50 Ml Syringe IV PUSH PRN PRN Hypoglycemia Protocol Enoxaparin Sodium 115 mg 11/28/24 21:00 12/02/24 10:07 Enoxaparin 120 Mg/0.8 Ml Syringe SUB-Q Not Given Q12HR TAMICA Glucagon 1 mg 11/24/24 08:03 Glucagon For Inj 1 Mg Vial IM PRN PRN Hypoglycemia Protocol Glucose 15 gm 11/24/24 08:03 Glucose Oral Gel 15 Gm Of Glucse In 37.5 Gm Tube PO PRN PRN Hypoglycemia Protocol Hydralazine HCl 20 mg 11/30/24 08:04 Hydralazine Hcl 20 Mg/Ml Vial IV PUSH Q4H PRN SBP more than 160 Dextrose 1,000 mls @ 100 mls/hr 11/24/24 08:03 Dextrose 5% 1,000 Ml IVPB PRN PRN Hypoglycemia Protocol Multivitamins 1.25 ml/ 1,002.5 mls @ 60 mls/hr 11/25/24 15:00 12/02/24 11:22 Multivitamins 1.25 ml/ Amino IV CONT 60 mls/hr Acids/Dextrose .[id number] TAMICA Administration Protocol Dextrose 1,000 mls @ 50 mls/hr 11/25/24 14:02 Dextrose 10% IV CONT .Q20H PRN if PN is interrupted Fat Emulsion Intravenous 250 mls @ 20.833 mls/hr 11/25/24 15:00 12/02/24 02:46 Lipids 20% IVPB Infused Q24H TAMICA Infusion Meropenem 1 gm/ Sodium 100 mls @ 200 mls/hr 11/26/24 15:00 12/02/24 06:28 Chloride IVPB Infused Q8H TAMICA Infusion Vancomycin HCl 2,000 mg in 500 mls @ 250 mls/hr 11/29/24 06:00 12/02/24 07:54 Vancomycin 2,000 Mg/Ns 500 Ml IVPB Infused Q8H TAMICA Infusion Pantoprazole Sodium 80 mg/ 500 mls @ 50 mls/hr 12/02/24 10:15 12/02/24 11:21 Sodium Chloride IV CONT 50 mls/hr .Q10H TAMICA Administration Lactated Ringer's 1,000 mls @ 150 mls/hr 12/02/24 13:40 Lr - Lactated Ringers Iv IV CONT .Q6H40M [facility] Insulin Aspart 3 - 6 units 11/24/24 09:00 12/02/24 12:08 Insulin Aspart (*Bkc) 100 Units/Ml SUB-Q Not Given Q4H [facility] Protocol Insulin Glargine 18 units 11/30/24 09:00 12/02/24 09:50 Insulin Glargine (*Bkc) 100 Units/Ml SUB-Q 18 units DAILY TAMICA Administration Ipratropium [place] 0.5 mg 11/30/24 09:51 Ipratropium Br 0.02% Inh Soln 0.5 Mg/2.5 Ml Vial INHALATION Q6HRT PRN Wheezing Levalbuterol HCl 0.63 mg 11/30/24 09:51 Levalbuterol Neb 1.25 Mg/3 Ml INHALATION Q6HRT PRN Wheezing Melatonin 5 mg 11/30/24 19:20 12/01/24 22:10 Melatonin 5 Mg Tablet PO 5 mg HS PRN Administration sleep Morphine Sulfate 4 mg 11/29/24 09:42 12/02/24 10:32 Morphine Sulfate (*Crx) 4 Mg/Ml Inj IV PUSH 4 mg Q2H PRN Administration Pain Rated 7-10 Sodium Chloride 10 ml 11/23/24 14:00 12/02/24 05:09 Central Line Flush IV PUSH 10 ml Q8HR TAMICA Administration Sodium Chloride 10 ml 11/23/24 13:39 Central Line Flush IV PUSH PRN PRN with TPN bag changes Sodium Chloride 20 ml 11/23/24 13:39 Central Line Flush IV PUSH PRN PRN after blood draws Radiology Results: ITS Impressions Chest CTA 11/23/24 05:53 IMPRESSION: 1. Free intraperitoneal air in the upper abdomen. Correlate for recent surgery. In the absence of known surgery this is most likely secondary to bowel perforation. Clinically correlate. 2: No large central pulmonary embolism. Limited evaluation of the secondary and tertiary pulmonary arteries. 3: Small right pleural effusion. Dependent atelectasis. 4: Ascites. Abdomen/Pelvis CT 11/23/24 13:00 IMPRESSION: 1. Increasing free intraperitoneal air 11/22/2024, suspicious for bowel leak. Increasing fluid in the mesentery with ascites involving the perihepatic space. No discrete abscess identified. Consider correlation with contrast-enhanced CT abdomen. 2: Increasing consolidation of the lower lobes which may represent atelectasis or pneumonia. 3: Developing small pleural effusions. Abdomen X-Ray 11/23/24 14:04 IMPRESSION: 1: NG tube tip in the stomach. 2: Bibasilar airspace disease, edema versus pneumonia. Head CT 11/26/24 14:47 Impression: No acute intracranial hemorrhage or suspicious mass effect. Chest/Abdomen/Pelvis CTA 11/26/24 14:58 IMPRESSION: No pulmonary embolus. No aortic dissection. Small bilateral pleural effusions, right greater than left with adjacent consolidation, an interval change from prior. Gallbladder distention with mural thickening and surrounding inflammatory change. Right middle and lower lobe nodules, for which follow-up may be performed once patient is beyond this acute phase. No discrete intraperitoneal air is appreciated. Simple free fluid within the dependent portions of the abdomen. Venous Doppler Study 11/28/24 11:19 IMPRESSION: 1. Deep venous thrombosis of the right subclavian, axillary and brachial veins. Dr. Kam Gongora discussed with the retail receiving clerk]Kurt Castaneda at 11/28/2024 11:23 CDT. Chest X-Ray 12/02/24 06:08 IMPRESSION: Mild pulmonary vascular congestion with increasing bilateral pleural effusions, as detailed above. Labs Labs: Laboratory Results - last 24 hr 12/01/24 12/01/24 12/02/24 16:52 20:15 00:08 WBC RBC Hgb Hct MCV MCH MCHC RDW Plt Count MPV Sodium Potassium Chloride Carbon Dioxide Anion Gap BUN Creatinine Estim Creat Clear Calc Estimated GFR Glucose POC Capillary Glucose 123 H 123 H 154 H Calcium Phosphorus Magnesium Total Bilirubin AST ALT Alkaline Phosphatase Total Protein Albumin 12/02/24 12/02/24 12/02/24 04:07 05:12 09:46 WBC 13.2 H RBC 2.82 L Hgb 8.7 L Hct 26.2 L MCV 92.9 MCH 30.9 MCHC 33.2 RDW 11.9 Plt Count 374 MPV 10.1 Sodium 131 L Potassium 2.9 L Chloride 103 Carbon Dioxide 25 Anion Gap 3 L BUN 21 H Creatinine 0.50 L Estim Creat Clear Calc 179 Estimated GFR > 60 Glucose 164 H POC Capillary Glucose 171 H 154 H Calcium 7.3 L Phosphorus 2.0 L Magnesium 2.3 Total Bilirubin 0.9 AST 47 ALT 43 Alkaline Phosphatase 172 H Total Protein 5.1 L Albumin 2.3 L 12/02/24 12/02/24 11:32 11:41 WBC RBC Hgb 8.9 L Hct 25.3 L MCV MCH MCHC RDW Plt Count MPV Sodium Potassium Chloride Carbon Dioxide Anion Gap BUN Creatinine Estim Creat Clear Calc Estimated GFR Glucose POC Capillary Glucose 148 H Calcium Phosphorus Magnesium Total Bilirubin AST ALT Alkaline Phosphatase Total Protein Albumin
--- NOTE | 2024-12-02 14:47 | S_PTH ---
PATIENT: Chris Calvillo LOC: [facility] #:[id number] AGE/SX: 54/M ROOM: 201 RE11/20/[address]: Opal Wilkerson PA-C : 1970 BED: 01 DIS: 12/09/2024 SPEC #: [id number] RECD: 12/05/24 08:24 STATUS: FAIZANTheresa RECollin #: [id number] TONI: 12/02/24 14:[address]: Charly Domingo DEPT: [facility] Surgical RECD BY: Page Kent ENTERED: 12/05/24 08:24 SP TYPE: Surgical OTHR DR: MD Joanie Sosa DO Zohair H. Karmally, MD Charles A. Lane, MD Tissues: A - Gastric Biopsy Procedures: Hematoxylin and Eosin Stain Gross and Microscopic Level 4
--- NOTE | 2024-12-02 15:32 | PC.NURSE ---
Patient arrived back to ICU 8 from GI lab.
[2024-12-02 15:54] LABS: Hematocrit 26.8 % (42.0-52.0); Hemoglobin 9.1 g/dL (14.0-18.0)
[2024-12-02] MEDS: FAT EMULSIONS IV 20% 250 ML 20.8 ML IVPB (16:20)
[2024-12-02 17:05] LABS: INR 1.2; Prothrombin Time 14.9 Seconds (11.1-14.7)
[2024-12-02 17:06] LABS: Partial Thromboplastin Time 32.2 Seconds (22.3-36.8)
[2024-12-02] MEDS: HEPARIN SOD/D5W 100 UNITS/ML 25,000 UNITS/250 ML BAG 15 UNITS IV CONT (17:21)
[2024-12-02] MEDS: ACETAMINOPHEN 325 MG TABLET 650 MG PO (20:20)
[2024-12-02] MEDS: MELATONIN 5 MG TABLET PO (20:20)
[2024-12-02 23:36] LABS: Hematocrit 24.4 % (42.0-52.0); Hemoglobin 8.4 g/dL (14.0-18.0)
[2024-12-02 23:46] LABS: Partial Thromboplastin Time 49.9 Seconds (22.3-36.8)
[2024-12-03] VITALS (16 sets, daily range): BP systolic 129–152; BP diastolic 65–84; PULSE 62–98; RESP 16–24; TEMP 37–38; O2SAT 95–100
[2024-12-03] MEDS: AMINO ACIDS 5%/DEXTROSE 15% 1,000 ML with MULTIVITAMINS-12 INJ VIAL 1 1.25 ML, MULTIVIT... 70 ML IV CONT ×2 (06:00→22:48)
[2024-12-03] MEDS: CENTRAL LINE FLUSH 10 ML IV PUSH ×3 (06:07→22:31)
[2024-12-03] MEDS: MEROPENEM 1 GM in SODIUM CHLORIDE 0.9% IV 100 ML 200 ML IVPB ×3 (06:07→22:41)
[2024-12-03 06:18] LABS: Hematocrit 25.8 % (42.0-52.0); Hemoglobin 8.6 g/dL (14.0-18.0); Mean Corpuscular HGB Conc 33.3 g/dl (32-36); Mean Corpuscular Hemoglobin 31.0 pg (26-34); Mean Corpuscular Volume 93.1 fl (80-100); Platelet Count Result 410 k/mm3 (150-375); Red Blood Count 2.77 M/mm3 (4.6-6.20); White Blood Count 15.2 K/mm3 (4.5-10.0)
[2024-12-03 06:36] LABS: Partial Thromboplastin Time 144.9 Seconds (22.3-36.8)
--- NOTE | 2024-12-03 06:50 | PC.NURSE ---
PTT 144; heparin placed on hold per heparin protocol. Drip will resume at 0742 at a rate of 16ml/1600 units per hour.
[2024-12-03 07:06] LABS: Alanine Aminotransferase 71 U/L (6-50); Albumin Level 2.2 g/dL (3.5-5.1); Alkaline Phosphatase 167 U/L (38-126); Anion Gap 4 mmol/L (4-12); Aspartate Amino Transferase 67 U/L (17-59); Bilirubin,Total 0.7 mg/dL (0.2-1.3); Blood Urea Nitrogen 15 mg/dL (9-20); Calcium 7.3 mg/dL (8.4-10.2); Carbon Dioxide 26 mmol/L (22-30); Chloride 105 mmol/L (98-107); Estimated CRCL calculation 166 ml/min; Estimated Glomerular Filt Rate > 60; Glucose 155 mg/dL (65-110); Magnesium 2.1 mg/dL (1.6-2.3); Potassium 2.5 mmol/L (3.4-5.0); Sodium 135 mmol/L (137-145); Total Protein 5.1 g/dL (6.3-8.2)
[2024-12-03] MEDS: POTASSIUM CHLORIDE 20 MEQ PACKET (FOR LIQUID) 40 MEQ PO (08:22)
[2024-12-03] MEDS: KCL 20 MEQ/SW 100 ML 100 ML 50 MEQ IVPB (08:22)
[2024-12-03] MEDS: PANTOPRAZOLE 40 MG TABLET PO ×2 (08:22→22:40)
[2024-12-03] MEDS: INSULIN GLARGINE (*BKC) 100 UNITS/ML 18 UNITS SUB-Q (08:26)
[2024-12-03] MEDS: VANCOMYCIN 2,000 MG/NS 500 ML 2,000 MG/500 ML BAG 250 MG IVPB (08:26)
[2024-12-03] MEDS: HEPARIN SOD/D5W 100 UNITS/ML 25,000 UNITS/250 ML BAG 16 UNITS IV CONT (10:31)
--- NOTE | 2024-12-03 11:24 | P.PNIM_ITS ---
Progress Note: A&P Assessment and Plan (1) Acute hypoxic respiratory failure: Code(s): J96.01 - Acute respiratory failure with hypoxia Status: Acute Assessment and Plan: Acute respiratory failure likely related to SIRS/sepsis -11/22: CTA chest: No large central PE, small right pleural effusion, dependent atelectasis, ascites, free intraperitoneal air in the upper abdomen correlate for some recent surgery -patient was initially placed on 10 L nasal cannula, now on high-flow therapy 60 L flow rate and 77% FiO2 -patient significantly tachypneic, breathing 40+ times a minute, with O2 side of 90-92% -11/23: Intubated in the ICU -chest x-ray, ventilator settings and ABGs reviewed this morning. 09/08 PSV SBT done for close to an hour. RSBI, ABGI and Vitals acceptable. Pt awake and following commands. Will extubate and monitor. NPO for now. -continue bronchodilators -off fentanyl. Continue to wean Precedex -discontinued IV fluids -11/26:responded well to Bumex -11/27: Will diurese again today 11/29 Lasix was given. Patient was extubated after a successful weaning trial. 11/30 on 2 L nasal cannula. Continue bronchodilators p.r.n. continue incentive spirometry. 12/02/2024 on room air (2) Septic shock: Code(s): A41.9 - Sepsis, unspecified organism; R65.21 - Severe sepsis with septic shock Status: Acute Assessment and Plan: Patient POD #3, tachypneic with hypoxic respiratory failure, lactic acidosis, increasing WBC count, anion gap metabolic acidosis -initial lactic acids were elevated on 11/24/2023 when patient was brought to the ICU, adequately fluid-resuscitated before patient was taken to the OR -sepsis secondary to ruptured appendicitis -11/22: CT scan of the abdomen and pelvis this morning showed postop changes consider the since surgery likely appendectomy, no abscess identified. Small pleural effusion with dependent atelectasis -11/23: Repeat CT scan of the abdomen and pelvis without contrast showed increasing free intraperitoneal air suspicious for bowel leak. Increasing fluid in the mesentery with ascites involving the perihepatic space. No discrete abscess identified. Increasing consolidation of the lower lobes which may represent atelectasis or pneumonia. Developing small pleural effusions -discussed CT results with surgeon, - 11/23: Exploratory laparotomy with ileocolic resection for bowel perforation (cecal perforation) with spillage of bowel contents in the abdominal cavity -OFF ALL PRESSORS, maintain MAP > 65 mmHg or SBP> 100 mmHg -WEAN stress dose steroids -11/24: Blood cultures negative x2 -11/24: Sputum cultures pending -11/24: Urine cultures no growth -continue Zosyn (11/20) and micafungin (11/24) 11/26: Patient has been febrile, Zosyn was discontinued, meropenem and vancomycin added due to consolidation in the right lung > left long as seen on CT scan as under 11/26: CT brain no acute intracranial hemorrhage or suspicious mass effect 11/26: Bilateral lower extremity venous Dopplers were negative for DVTs 11/28: Bilateral upper venous Dopplers showed DVT of the right subclavian, axillary and brachial veins. (patient does have a right arm PICC line. Fevers possibly due to DVT and pneumonia 11/26/2024: CTA chest/abdomen/pelvis IMPRESSION: No pulmonary embolus. No aortic dissection. Small bilateral pleural effusions, right greater than left with adjacent consolidation, an interval change from prior. Gallbladder distention with mural thickening and surrounding inflammatory change. Right middle and lower lobe nodules, for which follow-up may be performed once patient is beyond this acute phase. No discrete intraperitoneal air is appreciated. Simple free fluid within the dependent portions of the abdomen. Fever curve is improving. White count is improving Continue meropenem, vancomycin and micafungin, Completes micafungin (3) Status post appendectomy: Onset Date: 11/20/24 Code(s): Z90.49 - Acquired absence of other specified parts of digestive tract Status: Acute Assessment and Plan: 11/20: Discussed with surgery, NG tube will be inserted due to abdominal distension 11/23: Exploratory laparotomy with ileocolic resection for bowel perforation (cecal perforation) with spillage of bowel contents in the abdominal cavity 11/24: Wound VAC placed Treatment plans as above -pain control -11/25: started on TPN after discussing with surgery 11/27: Discussed with surgery, will start trickle tube feeds, started 10 mL, increased to a goal of 20 mL Patient is NPO at this time. Wound VAC placed on. Management per General surgery recommendations patient started on oral diet (4) DVT (deep venous thrombosis): Qualifiers: DVT location: upper extremity Affected thrombotic vein of extremity: axillary Chronicity: acute Laterality: right Qualified Code(s): I82.A11 - Acute embolism and thrombosis of right axillary vein Code(s): I82.409 - Acute embolism and thrombosis of unspecified deep veins of unspecified lower extremity Status: Acute Assessment and Plan: 11/28: Patient continues to have fevers, bilateral upper extremity venous Doppler with evidence of DVT of the right subclavian, axillary and brachial vein -discuss with surgery regarding therapeutic Lovenox to which the agreeable -11/28: Started patient on therapeutic Lovenox -right PICC line in place Lovenox on hold due to GI bleed switched to heparin gtt. (5) Hyperglycemia: Code(s): R73.9 - Hyperglycemia, unspecified Status: Acute Assessment and Plan: Related to stress response and/or steroids -Accu-Cheks and sliding scale insulin Adjust dose of insulin as needed (6) Electrolyte abnormality: Code(s): E87.8 - Other disorders of electrolyte and fluid balance, not elsewhere classified Status: Acute Assessment and Plan: Replace low potassium (7) Melena: Code(s): K92.1 - Melena Status: Acute Assessment and Plan: 12/02/2024 having melena Monitor H&H Protonix drip Hold Lovenox GI consultation underwent EGD : gastritis/duodenitis on ppi bid GI okay with anticoagulation and started on heparin gtt. monitor on heparin gtt for now Plan DVT prophylaxis: Lovenox now on heparin gtt Stress ulcer prophylaxis: Protonix Nutrition: TPN, feeding as per General surgery Code Status: Full code Incentive spirometry Subjective Date/time seen: 12/03/24 11:24 Interval history: underwent egd yesterday, no further bleeding. on protonix bid, no further bm. working with therapy this am. Review of Systems Review of Systems: All systems reviewed & are unremarkable except as noted in HPI and below Exam Narrative: Patient is comfortable, NAD HEENT: eyes are clear and none icteric LUNGS:CTA HEART: RR S1S2 ABD: BS+, distended surgical incision site with wound VAC in place Lower extremities: no edema SKIN: nonjaundiced Neuro: grossly intact. Objective Data Vital Signs Vital Signs: Vital Signs - 24 hr 12/02/24 12:00 12/02/24 12:00 12/02/24 12:00 Temperature 100 F H Pulse Rate 68 66 Respiratory Rate 19 Blood Pressure 136/78 Pulse Oximetry 98 98 Oxygen Delivery Room Air Oxygen Flow Rate 12/02/24 12:00 12/02/24 13:44 12/02/24 14:48 Temperature 98.5 F Pulse Rate 74 82 Respiratory Rate 20 22 H Blood Pressure 149/82 H 96/57 L Pulse Oximetry 98 98 97 Oxygen Delivery Room Air Room Air Nasal Cannula Oxygen Flow Rate 2 12/02/24 14:58 12/02/24 15:08 12/02/24 15:40 Temperature 100.2 F H Pulse Rate 68 70 68 Respiratory Rate 20 22 H 20 Blood Pressure 131/74 126/77 139/83 Pulse Oximetry 100 98 100 Oxygen Delivery Nasal Cannula Room Air Oxygen Flow Rate 2 12/02/24 16:00 12/02/24 16:00 12/02/24 16:00 Temperature 100.6 F H Pulse Rate 71 69 Respiratory Rate 25 H Blood Pressure 146/86 H Pulse Oximetry 95 95 Oxygen Delivery Room Air Oxygen Flow Rate 12/02/24 18:00 12/02/24 20:00 12/02/24 20:00 Temperature 101.2 F H Pulse Rate 72 76 76 Respiratory Rate 25 H 25 H Blood Pressure 137/77 Pulse Oximetry 99 99 Oxygen Delivery Room Air Oxygen Flow Rate 12/02/24 20:00 12/02/24 20:20 12/02/24 21:10 Temperature 101.2 F H 100.9 F H Pulse Rate 69 Respiratory Rate Blood Pressure Pulse Oximetry Oxygen Delivery Oxygen Flow Rate 12/02/24 22:00 12/03/24 00:00 12/03/24 00:00 Temperature 100.1 F H Pulse Rate 67 68 Respiratory Rate 21 H Blood Pressure 132/72 Pulse Oximetry 95 95 Oxygen Delivery Room Air Oxygen Flow Rate 12/03/24 00:00 12/03/24 02:00 12/03/24 02:09 Temperature 98.8 F Pulse Rate 62 63 Respiratory Rate Blood Pressure Pulse Oximetry Oxygen Delivery Oxygen Flow Rate 12/03/24 02:15 12/03/24 04:00 12/03/24 04:00 Temperature Pulse Rate 70 Respiratory Rate Blood Pressure Pulse Oximetry 100 100 Oxygen Delivery Nasal Cannula Nasal Cannula Oxygen Flow Rate 2 2 12/03/24 06:28 12/03/24 06:28 12/03/24 08:00 Temperature 100.4 F H Pulse Rate 62 62 72 Respiratory Rate 19 20 Blood Pressure 141/81 H 152/82 H Pulse Oximetry 98 95 Oxygen Delivery Oxygen Flow Rate 12/03/24 08:00 12/03/24 08:00 12/03/24 08:51 Temperature Pulse Rate 69 Respiratory Rate Blood Pressure Pulse Oximetry 100 100 Oxygen Delivery Room Air Room Air Oxygen Flow Rate 12/03/24 09:05 12/03/24 09:26 12/03/24 10:00 Temperature Pulse Rate 72 Respiratory Rate Blood Pressure Pulse Oximetry Oxygen Delivery Room Air Room Air Oxygen Flow Rate Intake/Output Intake/Output: Intake & Output 11/30/24 12/01/24 12/02/24 12/03/24 23:59 23:59 23:59 23:59 Intake Total 3653.3 3605.3 4280.8 2084.2 Output Total 3910 2550 3600 6225 Balance -256.7 1055.3 680.8 -4140.8 Meds/Results Medications: Active Medications Generic Name Dose Route Start Last Admin Trade Name Freq PRN Reason Stop Dose Admin Acetaminophen 650 mg 11/29/24 09:42 12/02/24 20:20 Acetaminophen 325 Mg Tablet PO 650 mg Q4H PRN Administration Mild Pain (1-3) or Fever Hydrocodone Bitart/Acetaminophen 1 tab 11/29/24 09:42 12/02/24 20:20 Hydrocodone/Acetaminophen (*Crx) 5-325 Mg Tablet PO 1 tab Q4H PRN Administration Pain Rated 4-6 Dextrose 12.5 gm 11/24/24 08:03 Dextrose 50% 25 Gm/50 Ml Syringe IV PUSH PRN PRN Hypoglycemia Protocol Enoxaparin Sodium 115 mg 11/28/24 21:00 12/02/24 10:07 Enoxaparin 120 Mg/0.8 Ml Syringe SUB-Q Not Given Q12HR TAMICA Glucagon 1 mg 11/24/24 08:03 Glucagon For Inj 1 Mg Vial IM PRN PRN Hypoglycemia Protocol Glucose 15 gm 11/24/24 08:03 Glucose Oral Gel 15 Gm Of Glucse In 37.5 Gm Tube PO PRN PRN Hypoglycemia Protocol Heparin Sodium (Porcine) 7,500 units 12/02/24 16:13 12/03/24 00:15 Heparin Sodium 5,000 Units/Ml Vial IV PUSH 7,500 units PRN PRN Administration aPTT less than 55 seconds Heparin Sodium (Porcine) 3,500 units 12/02/24 16:13 Heparin Sodium 5,000 Units/Ml Vial IV PUSH PRN PRN aPTT 55 - 70 seconds Hydralazine HCl 20 mg 11/30/24 08:04 Hydralazine Hcl 20 Mg/Ml Vial IV PUSH Q4H PRN SBP more than 160 Dextrose 1,000 mls @ 100 mls/hr 11/24/24 08:03 Dextrose 5% 1,000 Ml IVPB PRN PRN Hypoglycemia Protocol Multivitamins 1.25 ml/ 1,002.5 mls @ 70 mls/hr 11/25/24 15:00 12/03/24 06:00 Multivitamins 1.25 ml/ Amino IV CONT 70 mls/hr Acids/Dextrose .[id number] TAMICA Administration Protocol Dextrose 1,000 mls @ 50 mls/hr 11/25/24 14:02 Dextrose 10% IV CONT .Q20H PRN if PN is interrupted Fat Emulsion Intravenous 250 mls @ 20.833 mls/hr 11/25/24 15:00 12/03/24 05:15 Lipids 20% IVPB Infused Q24H TAMICA Infusion Meropenem 1 gm/ Sodium 100 mls @ 200 mls/hr 11/26/24 15:00 12/03/24 06:53 Chloride IVPB Infused Q8H TAMICA Infusion Heparin Sodium/Dextrose 25,000 units in 250 mls @ 16 mls/hr 12/02/24 16:15 12/03/24 10:31 Heparin Sodium/D5w 100 Units/Ml IV CONT 1,600 units/hr .[id number] TAMICA 16 mls/hr Administration Protocol 1,600 UNITS/HR Vancomycin HCl 2,000 mg in 500 mls @ 250 mls/hr 12/03/24 00:00 12/03/24 08:26 Vancomycin 2,000 Mg/Ns 500 Ml IVPB 250 mls/hr Q8H TAMICA Administration Insulin Aspart 3 - 6 units 11/24/24 09:00 12/03/24 08:23 Insulin Aspart (*Bkc) 100 Units/Ml SUB-Q Not Given Q4H [facility] Protocol Insulin Glargine 18 units 11/30/24 09:00 12/03/24 08:26 Insulin Glargine (*Bkc) 100 Units/Ml SUB-Q 18 units DAILY TAMICA Administration Ipratropium [place] 0.5 mg 11/30/24 09:51 Ipratropium Br 0.02% Inh Soln 0.5 Mg/2.5 Ml Vial INHALATION Q6HRT PRN Wheezing Levalbuterol HCl 0.63 mg 11/30/24 09:51 Levalbuterol Neb 1.25 Mg/3 Ml INHALATION Q6HRT PRN Wheezing Melatonin 5 mg 11/30/24 19:20 12/02/24 20:20 Melatonin 5 Mg Tablet PO 5 mg HS PRN Administration sleep Morphine Sulfate 4 mg 11/29/24 09:42 12/02/24 10:32 Morphine Sulfate (*Crx) 4 Mg/Ml Inj IV PUSH 4 mg Q2H PRN Administration Pain Rated 7-10 Pantoprazole Sodium 40 mg 12/02/24 21:00 12/03/24 08:22 Pantoprazole 40 Mg Tablet PO 40 mg Q12HR TAMICA Administration Sodium Chloride 10 ml 11/23/24 14:00 12/03/24 06:07 Central Line Flush IV PUSH 10 ml Q8HR TAMICA Administration Sodium Chloride 10 ml 11/23/24 13:39 Central Line Flush IV PUSH PRN PRN with TPN bag changes Sodium Chloride 20 ml 11/23/24 13:39 Central Line Flush IV PUSH PRN PRN after blood draws Radiology Results: ITS Impressions Chest CTA 11/23/24 05:53 IMPRESSION: 1. Free intraperitoneal air in the upper abdomen. Correlate for recent surgery. In the absence of known surgery this is most likely secondary to bowel perforation. Clinically correlate. 2: No large central pulmonary embolism. Limited evaluation of the secondary and tertiary pulmonary arteries. 3: Small right pleural effusion. Dependent atelectasis. 4: Ascites. Abdomen/Pelvis CT 11/23/24 13:00 IMPRESSION: 1. Increasing free intraperitoneal air 11/22/2024, suspicious for bowel leak. Increasing fluid in the mesentery with ascites involving the perihepatic space. No discrete abscess identified. Consider correlation with contrast-enhanced CT abdomen. 2: Increasing consolidation of the lower lobes which may represent atelectasis or pneumonia. 3: Developing small pleural effusions. Abdomen X-Ray 11/23/24 14:04 IMPRESSION: 1: NG tube tip in the stomach. 2: Bibasilar airspace disease, edema versus pneumonia. Head CT 11/26/24 14:47 Impression: No acute intracranial hemorrhage or suspicious mass effect. Chest/Abdomen/Pelvis CTA 11/26/24 14:58 IMPRESSION: No pulmonary embolus. No aortic dissection. Small bilateral pleural effusions, right greater than left with adjacent consolidation, an interval change from prior. Gallbladder distention with mural thickening and surrounding inflammatory change. Right middle and lower lobe nodules, for which follow-up may be performed once patient is beyond this acute phase. No discrete intraperitoneal air is appreciated. Simple free fluid within the dependent portions of the abdomen. Venous Doppler Study 11/28/24 11:19 IMPRESSION: 1. Deep venous thrombosis of the right subclavian, axillary and brachial veins. Dr. Kam Gongora discussed with the field clerk]Kurt Castaneda at 11/28/2024 11:23 CDT. Chest X-Ray 12/03/24 06:44 IMPRESSION: 1. Persistent small bilateral pleural effusions. Labs Labs: Laboratory Results - last 24 hr 12/02/24 12/02/24 12/02/24 11:32 11:41 13:35 WBC RBC Hgb 8.9 L Hct 25.3 L MCV MCH MCHC RDW Plt Count MPV PT INR APTT Sodium Potassium Chloride Carbon Dioxide Anion Gap BUN Creatinine Estim Creat Clear Calc Estimated GFR Glucose POC Capillary Glucose 148 H 128 H Calcium Phosphorus Magnesium Total Bilirubin AST ALT Alkaline Phosphatase Total Protein Albumin Vancomycin Trough 12/02/24 12/02/24 12/02/24 15:19 15:44 16:27 WBC RBC Hgb 9.1 L Hct 26.8 L MCV MCH MCHC RDW Plt Count MPV PT INR APTT Sodium Potassium Chloride Carbon Dioxide Anion Gap BUN Creatinine Estim Creat Clear Calc Estimated GFR Glucose POC Capillary Glucose 96 104 Calcium Phosphorus Magnesium Total Bilirubin AST ALT Alkaline Phosphatase Total Protein Albumin Vancomycin Trough 9.6 L 12/02/24 12/02/24 12/02/24 16:36 20:32 23:19 WBC RBC Hgb 8.4 L Hct 24.4 L MCV MCH MCHC RDW Plt Count MPV PT 14.9 H INR 1.2 APTT 32.2 49.9 H Sodium Potassium Chloride Carbon Dioxide Anion Gap BUN Creatinine Estim Creat Clear Calc Estimated GFR Glucose POC Capillary Glucose 144 H Calcium Phosphorus Magnesium Total Bilirubin AST ALT Alkaline Phosphatase Total Protein Albumin Vancomycin Trough 12/02/24 12/03/24 12/03/24 23:50 04:46 05:59 WBC 15.2 H RBC 2.77 L Hgb 8.6 L Hct 25.8 L MCV 93.1 MCH 31.0 MCHC 33.3 RDW 11.9 Plt Count 410 H MPV 10.4 PT INR APTT 144.9 H Sodium 135 L Potassium 2.5 L* Chloride 105 Carbon Dioxide 26 Anion Gap 4 BUN 15 D Creatinine 0.54 L Estim Creat Clear Calc 166 Estimated GFR > 60 Glucose 155 H POC Capillary Glucose 118 H 173 H Calcium 7.3 L Phosphorus 2.4 L Magnesium 2.1 Total Bilirubin 0.7 AST 67 H ALT 71 H Alkaline Phosphatase 167 H Total Protein 5.1 L Albumin 2.2 L Vancomycin Trough 12/03/24 08:18 WBC RBC Hgb Hct MCV MCH MCHC RDW Plt Count MPV PT INR APTT Sodium Potassium Chloride Carbon Dioxide Anion Gap BUN Creatinine Estim Creat Clear Calc Estimated GFR Glucose POC Capillary Glucose 158 H Calcium Phosphorus Magnesium Total Bilirubin AST ALT Alkaline Phosphatase Total Protein Albumin Vancomycin Trough
--- NOTE | 2024-12-03 12:59 | WPDANESPN ---
Anes - Prog Note Post-Op Date/Time: 12/03/24 12:59 Cardiovascular status: normal and other Respiratory status: normal and other Airway patency: baseline and other Mental status: baseline and other Post-Op hydration status: normal and other Vital Signs: Last Vital Signs Temp 100.1 F H 12/03/24 12:00 Pulse 83 12/03/24 12:00 Resp 16 12/03/24 12:00 BP 144/84 H 12/03/24 12:00 Pulse Ox 97 12/03/24 12:00 O2 Del Method Room Air 12/03/24 09:26 O2 Flow Rate 2 12/03/24 04:00 FiO2 28 12/01/24 16:00 Pain Score (VAS): 0 I/O: Intake & Output 12/02/24 12/03/24 12/03/24 23:59 07:59 15:59 Intake Total 1553.3 1580.2 984 Output Total 525 4625 1600 Balance 1028.3 -3044.8 -616 Laboratory Tests 12/03/24 05:59 12/03/24 05:59 12/02/24 12/02/24 12/02/24 13:35 15:19 15:44 WBC RBC Hgb 9.1 L Hct 26.8 L MCV MCH MCHC RDW Plt Count MPV PT INR APTT Sodium Potassium Chloride Carbon Dioxide Anion Gap BUN Creatinine Estim Creat Clear Calc Estimated GFR Glucose POC Capillary Glucose 128 H 96 Calcium Phosphorus Magnesium Total Bilirubin AST ALT Alkaline Phosphatase Total Protein Albumin Vancomycin Trough 9.6 L 12/02/24 12/02/24 12/02/24 16:27 16:36 20:32 WBC RBC Hgb Hct MCV MCH MCHC RDW Plt Count MPV PT 14.9 H INR 1.2 APTT 32.2 Sodium Potassium Chloride Carbon Dioxide Anion Gap BUN Creatinine Estim Creat Clear Calc Estimated GFR Glucose POC Capillary Glucose 104 144 H Calcium Phosphorus Magnesium Total Bilirubin AST ALT Alkaline Phosphatase Total Protein Albumin Vancomycin Trough 12/02/24 12/02/24 12/03/24 23:19 23:50 04:46 WBC RBC Hgb 8.4 L Hct 24.4 L MCV MCH MCHC RDW Plt Count MPV PT INR APTT 49.9 H Sodium Potassium Chloride Carbon Dioxide Anion Gap BUN Creatinine Estim Creat Clear Calc Estimated GFR Glucose POC Capillary Glucose 118 H 173 H Calcium Phosphorus Magnesium Total Bilirubin AST ALT Alkaline Phosphatase Total Protein Albumin Vancomycin Trough 12/03/24 12/03/24 12/03/24 05:59 08:18 11:28 WBC 15.2 H RBC 2.77 L Hgb 8.6 L Hct 25.8 L MCV 93.1 MCH 31.0 MCHC 33.3 RDW 11.9 Plt Count 410 H MPV 10.4 PT INR APTT 144.9 H Sodium 135 L Potassium 2.5 L* Chloride 105 Carbon Dioxide 26 Anion Gap 4 BUN 15 D Creatinine 0.54 L Estim Creat Clear Calc 166 Estimated GFR > 60 Glucose 155 H POC Capillary Glucose 158 H 165 H Calcium 7.3 L Phosphorus 2.4 L Magnesium 2.1 Total Bilirubin 0.7 AST 67 H ALT 71 H Alkaline Phosphatase 167 H Total Protein 5.1 L Albumin 2.2 L Vancomycin Trough Post-procedural complaints: none Patient Feedback: Patient satisfied with anesthetic care.
--- NOTE | 2024-12-03 14:16 | WPDGIPROGNO ---
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 Status: Acute (4) Perforated abdominal viscus: Code(s): R19.8 - Other specified symptoms and signs involving the digestive system and abdomen Status: Acute Assessment and Plan: per surgery team (5) Protein-calorie malnutrition, severe: Code(s): E43 - Unspecified severe protein-calorie malnutrition Status: Acute Subjective Date/time seen: 12/03/24 14:16 Interval history: egd noted gastritis and duodenitis without active bleeding he has been eating, comfortable Review of Systems Review of Systems: All systems reviewed & are unremarkable except as noted in HPI and below Exam Narrative: Patient is comfortable, NAD NECK: supple HEENT: eyes are clear and none icteric LUNGS:CTA HEART: RR S1S2 ABD: BS+, distended surgical incision site with wound VAC in place Lower extremities: no edema SKIN: nonjaundiced Neuro: grossly intact. Psych: normal affect Objective Data Vital Signs Vital Signs: Vital Signs - 24 hr 12/02/24 14:48 12/02/24 14:58 12/02/24 15:08 Temperature Pulse Rate 82 68 70 Respiratory Rate 22 H 20 22 H Blood Pressure 96/57 L 131/74 126/77 Pulse Oximetry 97 100 98 Oxygen Delivery Nasal Cannula Nasal Cannula Room Air Oxygen Flow Rate 2 2 12/02/24 15:40 12/02/24 16:00 12/02/24 16:00 Temperature 100.2 F H 100.6 F H Pulse Rate 68 71 Respiratory Rate 20 25 H Blood Pressure 139/83 146/86 H Pulse Oximetry 100 95 95 Oxygen Delivery Room Air Oxygen Flow Rate 12/02/24 16:00 12/02/24 18:00 12/02/24 20:00 Temperature 101.2 F H Pulse Rate 69 72 76 Respiratory Rate 25 H Blood Pressure 137/77 Pulse Oximetry 99 Oxygen Delivery Oxygen Flow Rate 12/02/24 20:00 12/02/24 20:00 12/02/24 20:20 Temperature 101.2 F H Pulse Rate 76 69 Respiratory Rate 25 H Blood Pressure Pulse Oximetry 99 Oxygen Delivery Room Air Oxygen Flow Rate 12/02/24 21:10 12/02/24 22:00 12/03/24 00:00 Temperature 100.9 F H 100.1 F H Pulse Rate 67 68 Respiratory Rate 21 H Blood Pressure 132/72 Pulse Oximetry 95 Oxygen Delivery Oxygen Flow Rate 12/03/24 00:00 12/03/24 00:00 12/03/24 02:00 Temperature Pulse Rate 62 63 Respiratory Rate Blood Pressure Pulse Oximetry 95 Oxygen Delivery Room Air Oxygen Flow Rate 12/03/24 02:09 12/03/24 02:15 12/03/24 04:00 Temperature 98.8 F Pulse Rate 70 Respiratory Rate Blood Pressure Pulse Oximetry 100 Oxygen Delivery Nasal Cannula Oxygen Flow Rate 2 12/03/24 04:00 12/03/24 06:28 12/03/24 06:28 Temperature Pulse Rate 62 62 Respiratory Rate 19 Blood Pressure 141/81 H Pulse Oximetry 100 98 Oxygen Delivery Nasal Cannula Oxygen Flow Rate 2 12/03/24 08:00 12/03/24 08:00 12/03/24 08:00 Temperature 100.4 F H Pulse Rate 72 69 Respiratory Rate 20 Blood Pressure 152/82 H Pulse Oximetry 95 100 Oxygen Delivery Room Air Oxygen Flow Rate 12/03/24 08:51 12/03/24 09:05 12/03/24 09:26 Temperature Pulse Rate Respiratory Rate Blood Pressure Pulse Oximetry 100 Oxygen Delivery Room Air Room Air Room Air Oxygen Flow Rate 12/03/24 10:00 12/03/24 12:00 Temperature 100.1 F H Pulse Rate 72 83 Respiratory Rate 16 Blood Pressure 144/84 H Pulse Oximetry 97 Oxygen Delivery Oxygen Flow Rate Intake/Output Intake/Output: Intake & Output 11/30/24 12/01/24 12/02/24 12/03/24 23:59 23:59 23:59 23:59 Intake Total 3653.3 3605.3 4280.8 2564.2 Output Total 3910 2550 3600 6225 Balance -256.7 1055.3 680.8 -3660.8 Meds/Results Medications: Active Medications Generic Name Dose Route Start Last Admin Trade Name Freq PRN Reason Stop Dose Admin Acetaminophen 650 mg 11/29/24 09:42 12/02/24 20:20 Acetaminophen 325 Mg Tablet PO 650 mg Q4H PRN Administration Mild Pain (1-3) or Fever Hydrocodone Bitart/Acetaminophen 1 tab 11/29/24 09:42 12/02/24 20:20 Hydrocodone/Acetaminophen (*Crx) 5-325 Mg Tablet PO 1 tab Q4H PRN Administration Pain Rated 4-6 Dextrose 12.5 gm 11/24/24 08:03 Dextrose 50% 25 Gm/50 Ml Syringe IV PUSH PRN PRN Hypoglycemia Protocol Enoxaparin Sodium 115 mg 11/28/24 21:00 12/02/24 10:07 Enoxaparin 120 Mg/0.8 Ml Syringe SUB-Q Not Given Q12HR [facility] Glucagon 1 mg 11/24/24 08:03 Glucagon For Inj 1 Mg Vial IM PRN PRN Hypoglycemia Protocol Glucose 15 gm 11/24/24 08:03 Glucose Oral Gel 15 Gm Of Glucse In 37.5 Gm Tube PO PRN PRN Hypoglycemia Protocol Heparin Sodium (Porcine) 7,500 units 12/02/24 16:13 12/03/24 00:15 Heparin Sodium 5,000 Units/Ml Vial IV PUSH 7,500 units PRN PRN Administration aPTT less than 55 seconds Heparin Sodium (Porcine) 3,500 units 12/02/24 16:13 Heparin Sodium 5,000 Units/Ml Vial IV PUSH PRN PRN aPTT 55 - 70 seconds Hydralazine HCl 20 mg 11/30/24 08:04 Hydralazine Hcl 20 Mg/Ml Vial IV PUSH Q4H PRN SBP more than 160 Dextrose 1,000 mls @ 100 mls/hr 11/24/24 08:03 Dextrose 5% 1,000 Ml IVPB PRN PRN Hypoglycemia Protocol Multivitamins 1.25 ml/ 1,002.5 mls @ 70 mls/hr 11/25/24 15:00 12/03/24 06:00 Multivitamins 1.25 ml/ Amino IV CONT 70 mls/hr Acids/Dextrose .[id number] TAMICA Administration Protocol Dextrose 1,000 mls @ 50 mls/hr 11/25/24 14:02 Dextrose 10% IV CONT .Q20H PRN if PN is interrupted Fat Emulsion Intravenous 250 mls @ 20.833 mls/hr 11/25/24 15:00 12/03/24 05:15 Lipids 20% IVPB Infused Q24H [facility] Infusion Meropenem 1 gm/ Sodium 100 mls @ 200 mls/hr 11/26/24 15:00 12/03/24 06:53 Chloride IVPB Infused Q8H [facility] Infusion Heparin Sodium/Dextrose 25,000 units in 250 mls @ 16 mls/hr 12/02/24 16:15 12/03/24 10:31 Heparin Sodium/D5w 100 Units/Ml IV CONT 1,600 units/hr .[id number] TAMICA 16 mls/hr Administration Protocol 1,600 UNITS/HR Vancomycin HCl 2,000 mg in 500 mls @ 250 mls/hr 12/03/24 00:00 12/03/24 08:26 Vancomycin 2,000 Mg/Ns 500 Ml IVPB 250 mls/hr Q8H [facility] Administration Insulin Aspart 3 - 6 units 11/24/24 09:00 12/03/24 14:04 Insulin Aspart (*Bkc) 100 Units/Ml SUB-Q Not Given Q4H [facility] Protocol Insulin Glargine 18 units 11/30/24 09:00 12/03/24 08:26 Insulin Glargine (*Bkc) 100 Units/Ml SUB-Q 18 units DAILY TAMICA Administration Ipratropium [place] 0.5 mg 11/30/24 09:51 Ipratropium Br 0.02% Inh Soln 0.5 Mg/2.5 Ml Vial INHALATION Q6HRT PRN Wheezing Levalbuterol HCl 0.63 mg 11/30/24 09:51 Levalbuterol Neb 1.25 Mg/3 Ml INHALATION Q6HRT PRN Wheezing Melatonin 5 mg 11/30/24 19:20 12/02/24 20:20 Melatonin 5 Mg Tablet PO 5 mg HS PRN Administration sleep Morphine Sulfate 4 mg 11/29/24 09:42 12/02/24 10:32 Morphine Sulfate (*Crx) 4 Mg/Ml Inj IV PUSH 4 mg Q2H PRN Administration Pain Rated 7-10 Pantoprazole Sodium 40 mg 12/02/24 21:00 12/03/24 08:22 Pantoprazole 40 Mg Tablet PO 40 mg Q12HR T[facility]ICA Administration Sodium Chloride 10 ml 11/23/24 14:00 12/03/24 06:07 Central Line Flush IV PUSH 10 ml Q8HR TAMICA Administration Sodium Chloride 10 ml 11/23/24 13:39 Central Line Flush IV PUSH PRN PRN with TPN bag changes Sodium Chloride 20 ml 11/23/24 13:39 Central Line Flush IV PUSH PRN PRN after blood draws Radiology Results: ITS Impressions Chest CTA 11/23/24 05:53 IMPRESSION: 1. Free intraperitoneal air in the upper abdomen. Correlate for recent surgery. In the absence of known surgery this is most likely secondary to bowel perforation. Clinically correlate. 2: No large central pulmonary embolism. Limited evaluation of the secondary and tertiary pulmonary arteries. 3: Small right pleural effusion. Dependent atelectasis. 4: Ascites. Abdomen/Pelvis CT 11/23/24 13:00 IMPRESSION: 1. Increasing free intraperitoneal air 11/22/2024, suspicious for bowel leak. Increasing fluid in the mesentery with ascites involving the perihepatic space. No discrete abscess identified. Consider correlation with contrast-enhanced CT abdomen. 2: Increasing consolidation of the lower lobes which may represent atelectasis or pneumonia. 3: Developing small pleural effusions. Abdomen X-Ray 11/23/24 14:04 IMPRESSION: 1: NG tube tip in the stomach. 2: Bibasilar airspace disease, edema versus pneumonia. Head CT 11/26/24 14:47 Impression: No acute intracranial hemorrhage or suspicious mass effect. Chest/Abdomen/Pelvis CTA 11/26/24 14:58 IMPRESSION: No pulmonary embolus. No aortic dissection. Small bilateral pleural effusions, right greater than left with adjacent consolidation, an interval change from prior. Gallbladder distention with mural thickening and surrounding inflammatory change. Right middle and lower lobe nodules, for which follow-up may be performed once patient is beyond this acute phase. No discrete intraperitoneal air is appreciated. Simple free fluid within the dependent portions of the abdomen. Venous Doppler Study 11/28/24 11:19 IMPRESSION: 1. Deep venous thrombosis of the right subclavian, axillary and brachial veins. Dr. Kam Gongora discussed with the examiner rating clerk]Kurt Castaneda at 11/28/2024 11:23 CDT. Chest X-Ray 12/03/24 06:44 IMPRESSION: 1. Persistent small bilateral pleural effusions. Labs Labs: Laboratory Results - last 24 hr 12/02/24 12/02/24 12/02/24 15:19 15:44 16:27 WBC RBC Hgb 9.1 L Hct 26.8 L MCV MCH MCHC RDW Plt Count MPV PT INR APTT Sodium Potassium Chloride Carbon Dioxide Anion Gap BUN Creatinine Estim Creat Clear Calc Estimated GFR Glucose POC Capillary Glucose 96 104 Calcium Phosphorus Magnesium Total Bilirubin AST ALT Alkaline Phosphatase Total Protein Albumin Vancomycin Trough 9.6 L 12/02/24 12/02/24 12/02/24 16:36 20:32 23:19 WBC RBC Hgb 8.4 L Hct 24.4 L MCV MCH MCHC RDW Plt Count MPV PT 14.9 H INR 1.2 APTT 32.2 49.9 H Sodium Potassium Chloride Carbon Dioxide Anion Gap BUN Creatinine Estim Creat Clear Calc Estimated GFR Glucose POC Capillary Glucose 144 H Calcium Phosphorus Magnesium Total Bilirubin AST ALT Alkaline Phosphatase Total Protein Albumin Vancomycin Trough 12/02/24 12/03/24 12/03/24 23:50 04:46 05:59 WBC 15.2 H RBC 2.77 L Hgb 8.6 L Hct 25.8 L MCV 93.1 MCH 31.0 MCHC 33.3 RDW 11.9 Plt Count 410 H MPV 10.4 PT INR APTT 144.9 H Sodium 135 L Potassium 2.5 L* Chloride 105 Carbon Dioxide 26 Anion Gap 4 BUN 15 D Creatinine 0.54 L Estim Creat Clear Calc 166 Estimated GFR > 60 Glucose 155 H POC Capillary Glucose 118 H 173 H Calcium 7.3 L Phosphorus 2.4 L Magnesium 2.1 Total Bilirubin 0.7 AST 67 H ALT 71 H Alkaline Phosphatase 167 H Total Protein 5.1 L Albumin 2.2 L Vancomycin Trough 12/03/24 12/03/24 08:18 11:28 WBC RBC Hgb Hct MCV MCH MCHC RDW Plt Count MPV PT INR APTT Sodium Potassium Chloride Carbon Dioxide Anion Gap BUN Creatinine Estim Creat Clear Calc Estimated GFR Glucose POC Capillary Glucose 158 H 165 H Calcium Phosphorus Magnesium Total Bilirubin AST ALT Alkaline Phosphatase Total Protein Albumin Vancomycin Trough
--- NOTE | 2024-12-03 15:01 | P.PN_ITS ---
Progress Note: A&P Assessment and Plan (1) DVT (deep venous thrombosis): Qualifiers: DVT location: upper extremity Affected thrombotic vein of extremity: axillary Chronicity: acute Laterality: right Qualified Code(s): I82.A11 - Acute embolism and thrombosis of right axillary vein Code(s): I82.409 - Acute embolism and thrombosis of unspecified deep veins of unspecified lower extremity Status: Acute Assessment and Plan: Right actually vein DVT. Patient now on a heparin drip. He did have some GI bleeding and after upper endoscopy likely due to stress-induced gastritis and NG to. Hemoglobin is relatively stable. Continue to monitor. (2) Protein-calorie malnutrition, severe: Code(s): E43 - Unspecified severe protein-calorie malnutrition Status: Acute Assessment and Plan: On TPN. He is also getting some supplemental low-fiber diet and yogurt. Will renew the TPN today. (3) Status post appendectomy: Onset Date: 11/20/24 Code(s): Z90.49 - Acquired absence of other specified parts of digestive tract Status: Acute Assessment and Plan: Underwent laparoscopic appendectomy due to perforated appendicitis. Unfortunate also suffered a cecal injury which resulted in fecal peritonitis in the postoperative period. Status post ileocolic resection. (4) Perforated abdominal viscus: Code(s): R19.8 - Other specified symptoms and signs involving the digestive system and abdomen Status: Acute Assessment and Plan: Status post ileocolic resection. Bowel function seems to have returned. Sepsis and peritonitis is improving. Continue IV antibiotics. White blood cell count has been decreasing but increased slightly to 15,200 today. Will need to follow the trend. Midline wound is open and packed with a wound VAC. Wound VAC will be changed Thursday. Continue with PT and OT. Discussed with him remove the Mancini catheter and he would like to leave it in 1 more day until therapy works with Catie again. We will plan on removing the Mancini catheter tomorrow the next day. (5) Melena: Code(s): K92.1 - Melena Status: Acute Assessment and Plan: Due to stress gastritis. Continue PPI. NG tube is out. (6) Severe sepsis: Code(s): A41.9 - Sepsis, unspecified organism; R65.20 - Severe sepsis without septic shock Status: Acute Assessment and Plan: Improved. No high spiking fevers now. White blood count had decreased markedly but just increased a little bit since yesterday. Will need to follow the trend. Continue broad-spectrum IV antibiotics to cover enteric organisms. Subjective Date/time seen: 12/03/24 15:01 Interval history: Patient moved out of the ICU to the step-down IMU. He is awake and alert. Tolerating low-fiber diet. Having multiple loose bowel movements today. Some with old blood within it. No complaints of any particular bad pains in his abdomen. No shortness of breath and no cough. Wound VAC in place without enteric contents coming out of the wound VAC. White blood cell count today is 15,200. Slightly elevated from 13,200 yesterday. Afebrile. He is still on TPN for now. Exam GI: Other: Abdomen is soft and nondistended. Wound VAC in place an open midline wound. Drainage from the wound VAC is not enteric. No spreading redness across the abdominal wall. Urinary Catheter: Urinary Catheter: patent and draining and urine clear Objective Data Vital Signs Vital Signs: Vital Signs - 24 hr 12/02/24 15:08 12/02/24 15:40 12/02/24 16:00 Temperature 37.9 C H 38.1 C H Pulse Rate 70 68 71 Respiratory Rate 22 H 20 25 H Blood Pressure 126/77 139/83 146/86 H Pulse Oximetry 98 100 95 Oxygen Delivery Room Air Oxygen Flow Rate 12/02/24 16:00 12/02/24 16:00 12/02/24 18:00 Temperature Pulse Rate 69 72 Respiratory Rate Blood Pressure Pulse Oximetry 95 Oxygen Delivery Room Air Oxygen Flow Rate 12/02/24 20:00 12/02/24 20:00 12/02/24 20:00 Temperature 38.4 C H Pulse Rate 76 76 69 Respiratory Rate 25 H 25 H Blood Pressure 137/77 Pulse Oximetry 99 99 Oxygen Delivery Room Air Oxygen Flow Rate 12/02/24 20:20 12/02/24 21:10 12/02/24 22:00 Temperature 38.4 C H 38.3 C H Pulse Rate 67 Respiratory Rate Blood Pressure Pulse Oximetry Oxygen Delivery Oxygen Flow Rate 12/03/24 00:00 12/03/24 00:00 12/03/24 00:00 Temperature 37.8 C H Pulse Rate 68 62 Respiratory Rate 21 H Blood Pressure 132/72 Pulse Oximetry 95 95 Oxygen Delivery Room Air Oxygen Flow Rate 12/03/24 02:00 12/03/24 02:09 12/03/24 02:15 Temperature 37.1 C Pulse Rate 63 Respiratory Rate Blood Pressure Pulse Oximetry 100 Oxygen Delivery Nasal Cannula Oxygen Flow Rate 2 12/03/24 04:00 12/03/24 04:00 12/03/24 06:28 Temperature Pulse Rate 70 62 Respiratory Rate Blood Pressure Pulse Oximetry 100 Oxygen Delivery Nasal Cannula Oxygen Flow Rate 2 12/03/24 06:28 12/03/24 08:00 12/03/24 08:00 Temperature 38.0 C H Pulse Rate 62 72 Respiratory Rate 19 20 Blood Pressure 141/81 H 152/82 H Pulse Oximetry 98 95 100 Oxygen Delivery Room Air Oxygen Flow Rate 12/03/24 08:00 12/03/24 08:51 12/03/24 09:05 Temperature Pulse Rate 69 Respiratory Rate Blood Pressure Pulse Oximetry 100 Oxygen Delivery Room Air Room Air Oxygen Flow Rate 12/03/24 09:26 12/03/24 10:00 12/03/24 12:00 Temperature 37.8 C H Pulse Rate 72 83 Respiratory Rate 16 Blood Pressure 144/84 H Pulse Oximetry 97 Oxygen Delivery Room Air Oxygen Flow Rate 12/03/24 12:00 Temperature Pulse Rate Respiratory Rate Blood Pressure Pulse Oximetry 100 Oxygen Delivery Room Air Oxygen Flow Rate Intake/Output Intake/Output: Intake & Output 11/30/24 12/01/24 12/02/24 12/03/24 23:59 23:59 23:59 23:59 Intake Total 3653.3 3605.3 4280.8 2564.2 Output Total 3910 2550 3600 6225 Balance -256.7 1055.3 680.8 -3660.8 Meds/Results Medications: Active Medications Generic Name Dose Route Start Last Admin Trade Name Freq PRN Reason Stop Dose Admin Acetaminophen 650 mg 11/29/24 09:42 12/02/24 20:20 Acetaminophen 325 Mg Tablet PO 650 mg Q4H PRN Administration Mild Pain (1-3) or Fever Hydrocodone Bitart/Acetaminophen 1 tab 11/29/24 09:42 12/02/24 20:20 Hydrocodone/Acetaminophen (*Crx) 5-325 Mg Tablet PO 1 tab Q4H PRN Administration Pain Rated 4-6 Dextrose 12.5 gm 11/24/24 08:03 Dextrose 50% 25 Gm/50 Ml Syringe IV PUSH PRN PRN Hypoglycemia Protocol Enoxaparin Sodium 115 mg 11/28/24 21:00 12/02/24 10:07 Enoxaparin 120 Mg/0.8 Ml Syringe SUB-Q Not Given Q12HR [facility] Glucagon 1 mg 11/24/24 08:03 Glucagon For Inj 1 Mg Vial IM PRN PRN Hypoglycemia Protocol Glucose 15 gm 11/24/24 08:03 Glucose Oral Gel 15 Gm Of Glucse In 37.5 Gm Tube PO PRN PRN Hypoglycemia Protocol Heparin Sodium (Porcine) 7,500 units 12/02/24 16:13 12/03/24 00:15 Heparin Sodium 5,000 Units/Ml Vial IV PUSH 7,500 units PRN PRN Administration aPTT less than 55 seconds Heparin Sodium (Porcine) 3,500 units 12/02/24 16:13 Heparin Sodium 5,000 Units/Ml Vial IV PUSH PRN PRN aPTT 55 - 70 seconds Hydralazine HCl 20 mg 11/30/24 08:04 Hydralazine Hcl 20 Mg/Ml Vial IV PUSH Q4H PRN SBP more than 160 Dextrose 1,000 mls @ 100 mls/hr 11/24/24 08:03 Dextrose 5% 1,000 Ml IVPB PRN PRN Hypoglycemia Protocol Multivitamins 1.25 ml/ 1,002.5 mls @ 70 mls/hr 11/25/24 15:00 12/03/24 06:00 Multivitamins 1.25 ml/ Amino IV CONT 70 mls/hr Acids/Dextrose .[id number] TAMICA Administration Protocol Dextrose 1,000 mls @ 50 mls/hr 11/25/24 14:02 Dextrose 10% IV CONT .Q20H PRN if PN is interrupted Fat Emulsion Intravenous 250 mls @ 20.833 mls/hr 11/25/24 15:00 12/03/24 05:15 Lipids 20% IVPB Infused Q24H [facility] Infusion Meropenem 1 gm/ Sodium 100 mls @ 200 mls/hr 11/26/24 15:00 12/03/24 06:53 Chloride IVPB Infused Q8H [facility] Infusion Heparin Sodium/Dextrose 25,000 units in 250 mls @ 16 mls/hr 12/02/24 16:15 12/03/24 10:31 Heparin Sodium/D5w 100 Units/Ml IV CONT 1,600 units/hr .[id number] [facility]ICA 16 mls/hr Administration Protocol 1,600 UNITS/HR Vancomycin HCl 2,000 mg in 500 mls @ 250 mls/hr 12/03/24 00:00 12/03/24 08:26 Vancomycin 2,000 Mg/Ns 500 Ml IVPB 250 mls/hr Q8H [facility] Administration Potassium Phosphate 15 mmol/ 255 mls @ 63.75 mls/hr 12/03/24 15:00 Sodium Chloride IVPB 12/03/24 18:59 ONCE ONE Insulin Aspart 3 - 6 units 11/24/24 09:00 12/03/24 14:04 Insulin Aspart (*Bkc) 100 Units/Ml SUB-Q Not Given Q4H [facility] Protocol Insulin Glargine 18 units 11/30/24 09:00 12/03/24 08:26 Insulin Glargine (*Bkc) 100 Units/Ml SUB-Q 18 units DAILY TAMICA Administration Ipratropium [place] 0.5 mg 11/30/24 09:51 Ipratropium Br 0.02% Inh Soln 0.5 Mg/2.5 Ml Vial INHALATION Q6HRT PRN Wheezing Levalbuterol HCl 0.63 mg 11/30/24 09:51 Levalbuterol Neb 1.25 Mg/3 Ml INHALATION Q6HRT PRN Wheezing Melatonin 5 mg 11/30/24 19:20 12/02/24 20:20 Melatonin 5 Mg Tablet PO 5 mg HS PRN Administration sleep Morphine Sulfate 4 mg 11/29/24 09:42 12/02/24 10:32 Morphine Sulfate (*Crx) 4 Mg/Ml Inj IV PUSH 4 mg Q2H PRN Administration Pain Rated 7-10 Pantoprazole Sodium 40 mg 12/02/24 21:00 12/03/24 08:22 Pantoprazole 40 Mg Tablet PO 40 mg Q12HR TAMICA Administration Sodium Chloride 10 ml 11/23/24 14:00 12/03/24 06:07 Central Line Flush IV PUSH 10 ml Q8HR T[facility]ICA Administration Sodium Chloride 10 ml 11/23/24 13:39 Central Line Flush IV PUSH PRN PRN with TPN bag changes Sodium Chloride 20 ml 11/23/24 13:39 Central Line Flush IV PUSH PRN PRN after blood draws Radiology Results: ITS Impressions Chest CTA 11/23/24 05:53 IMPRESSION: 1. Free intraperitoneal air in the upper abdomen. Correlate for recent surgery. In the absence of known surgery this is most likely secondary to bowel perforation. Clinically correlate. 2: No large central pulmonary embolism. Limited evaluation of the secondary and tertiary pulmonary arteries. 3: Small right pleural effusion. Dependent atelectasis. 4: Ascites. Abdomen/Pelvis CT 11/23/24 13:00 IMPRESSION: 1. Increasing free intraperitoneal air 11/22/2024, suspicious for bowel leak. Increasing fluid in the mesentery with ascites involving the perihepatic space. No discrete abscess identified. Consider correlation with contrast-enhanced CT abdomen. 2: Increasing consolidation of the lower lobes which may represent atelectasis or pneumonia. 3: Developing small pleural effusions. Abdomen X-Ray 11/23/24 14:04 IMPRESSION: 1: NG tube tip in the stomach. 2: Bibasilar airspace disease, edema versus pneumonia. Head CT 11/26/24 14:47 Impression: No acute intracranial hemorrhage or suspicious mass effect. Chest/Abdomen/Pelvis CTA 11/26/24 14:58 IMPRESSION: No pulmonary embolus. No aortic dissection. Small bilateral pleural effusions, right greater than left with adjacent consolidation, an interval change from prior. Gallbladder distention with mural thickening and surrounding inflammatory change. Right middle and lower lobe nodules, for which follow-up may be performed once patient is beyond this acute phase. No discrete intraperitoneal air is appreciated. Simple free fluid within the dependent portions of the abdomen. Venous Doppler Study 11/28/24 11:19 IMPRESSION: 1. Deep venous thrombosis of the right subclavian, axillary and brachial veins. Dr. Kam Gongora discussed with the time clerk]Kurt Castaneda at 11/28/2024 11:23 CDT. Chest X-Ray 12/03/24 06:44 IMPRESSION: 1. Persistent small bilateral pleural effusions. Labs Labs: Laboratory Results - last 24 hr 12/02/24 12/02/24 12/02/24 15:19 15:44 16:27 WBC RBC Hgb 9.1 L Hct 26.8 L MCV MCH MCHC RDW Plt Count MPV PT INR APTT Sodium Potassium Chloride Carbon Dioxide Anion Gap BUN Creatinine Estim Creat Clear Calc Estimated GFR Glucose POC Capillary Glucose 96 104 Calcium Phosphorus Magnesium Total Bilirubin AST ALT Alkaline Phosphatase Total Protein Albumin Vancomycin Trough 9.6 L 12/02/24 12/02/24 12/02/24 16:36 20:32 23:19 WBC RBC Hgb 8.4 L Hct 24.4 L MCV MCH MCHC RDW Plt Count MPV PT 14.9 H INR 1.2 APTT 32.2 49.9 H Sodium Potassium Chloride Carbon Dioxide Anion Gap BUN Creatinine Estim Creat Clear Calc Estimated GFR Glucose POC Capillary Glucose 144 H Calcium Phosphorus Magnesium Total Bilirubin AST ALT Alkaline Phosphatase Total Protein Albumin Vancomycin Trough 12/02/24 12/03/24 12/03/24 23:50 04:46 05:59 WBC 15.2 H RBC 2.77 L Hgb 8.6 L Hct 25.8 L MCV 93.1 MCH 31.0 MCHC 33.3 RDW 11.9 Plt Count 410 H MPV 10.4 PT INR APTT 144.9 H Sodium 135 L Potassium 2.5 L* Chloride 105 Carbon Dioxide 26 Anion Gap 4 BUN 15 D Creatinine 0.54 L Estim Creat Clear Calc 166 Estimated GFR > 60 Glucose 155 H POC Capillary Glucose 118 H 173 H Calcium 7.3 L Phosphorus 2.4 L Magnesium 2.1 Total Bilirubin 0.7 AST 67 H ALT 71 H Alkaline Phosphatase 167 H Total Protein 5.1 L Albumin 2.2 L Vancomycin Trough 12/03/24 12/03/24 08:18 11:28 WBC RBC Hgb Hct MCV MCH MCHC RDW Plt Count MPV PT INR APTT Sodium Potassium Chloride Carbon Dioxide Anion Gap BUN Creatinine Estim Creat Clear Calc Estimated GFR Glucose POC Capillary Glucose 158 H 165 H Calcium Phosphorus Magnesium Total Bilirubin AST ALT Alkaline Phosphatase Total Protein Albumin Vancomycin Trough
[2024-12-03 15:42] LABS: Hematocrit 26.0 % (42.0-52.0); Hemoglobin 8.7 g/dL (14.0-18.0)
[2024-12-03] MEDS: FAT EMULSIONS IV 20% 250 ML 20.8 ML IVPB (15:45)
[2024-12-03 15:56] LABS: Partial Thromboplastin Time 41.7 Seconds (22.3-36.8)
[2024-12-03 16:16] LABS: Anion Gap 3 mmol/L (4-12); Blood Urea Nitrogen 16 mg/dL (9-20); Calcium 7.6 mg/dL (8.4-10.2); Carbon Dioxide 26 mmol/L (22-30); Chloride 102 mmol/L (98-107); Estimated CRCL calculation 163 ml/min; Estimated Glomerular Filt Rate > 60; Glucose 133 mg/dL (65-110); Potassium 2.7 mmol/L (3.4-5.0); Sodium 131 mmol/L (137-145)
[2024-12-03] MEDS: POTASSIUM CHLORIDE 20 MEQ ER TABLET 40 MEQ PO (17:04)
[2024-12-03] MEDS: POTASSIUM PHOS,M-BASIC-D-BASIC 15 MMOL in SODIUM CHLORIDE 0.9% IV 250 ML 63.75 MMOL IVPB (17:04)
[2024-12-03] MEDS: CENTRAL LINE FLUSH 20 ML IV PUSH (22:32)
[2024-12-03] MEDS: MELATONIN 5 MG TABLET PO (22:40)
[2024-12-03 22:52] LABS: Partial Thromboplastin Time 72.0 Seconds (22.3-36.8)
[2024-12-03 22:53] LABS: Potassium 2.8 mmol/L (3.4-5.0)
[2024-12-04] VITALS (18 sets, daily range): BP systolic 124–136; BP diastolic 63–79; PULSE 70–99; RESP 16–32; TEMP 36.7–37.1; O2SAT 93–100
[2024-12-04] MEDS: VANCOMYCIN 2,000 MG/NS 500 ML 2,000 MG/500 ML BAG 250 MG IVPB ×3 (00:12→16:13)
[2024-12-04] MEDS: POTASSIUM CHLORIDE 20 MEQ ER TABLET 40 MEQ PO ×3 (00:12→09:28)
[2024-12-04] MEDS: POTASSIUM PHOS,M-BASIC-D-BASIC 40 MMOL in SODIUM CHLORIDE 0.9% IV 250 ML 43.89 MMOL IVPB (00:43)
[2024-12-04] MEDS: HEPARIN SOD/D5W 100 UNITS/ML 25,000 UNITS/250 ML BAG 20 UNITS IV CONT ×2 (01:20→14:29)
[2024-12-04] MEDS: CENTRAL LINE FLUSH 20 ML IV PUSH (04:49)
[2024-12-04] MEDS: CENTRAL LINE FLUSH 10 ML IV PUSH ×3 (05:02→22:57)
[2024-12-04 05:13] LABS: Hematocrit 24.2 % (42.0-52.0); Hemoglobin 8.2 g/dL (14.0-18.0); Mean Corpuscular HGB Conc 33.9 g/dl (32-36); Mean Corpuscular Hemoglobin 31.8 pg (26-34); Mean Corpuscular Volume 93.8 fl (80-100); Platelet Count Result 422 k/mm3 (150-375); Red Blood Count 2.58 M/mm3 (4.6-6.20); White Blood Count 15.1 K/mm3 (4.5-10.0)
[2024-12-04 05:38] LABS: Alanine Aminotransferase 63 U/L (6-50); Albumin Level 2.1 g/dL (3.5-5.1); Alkaline Phosphatase 160 U/L (38-126); Anion Gap 3 mmol/L (4-12); Aspartate Amino Transferase 41 U/L (17-59); Bilirubin,Total 0.6 mg/dL (0.2-1.3); Blood Urea Nitrogen 15 mg/dL (9-20); Calcium 7.3 mg/dL (8.4-10.2); Carbon Dioxide 26 mmol/L (22-30); Chloride 102 mmol/L (98-107); Estimated CRCL calculation 169 ml/min; Estimated Glomerular Filt Rate > 60; Glucose 162 mg/dL (65-110); Magnesium 2.1 mg/dL (1.6-2.3); Potassium 3.3 mmol/L (3.4-5.0); Sodium 131 mmol/L (137-145); Total Protein 4.9 g/dL (6.3-8.2)
[2024-12-04 05:39] LABS: Partial Thromboplastin Time 89.2 Seconds (22.3-36.8)
[2024-12-04] MEDS: MEROPENEM 1 GM in SODIUM CHLORIDE 0.9% IV 100 ML 200 ML IVPB ×3 (06:24→23:00)
[2024-12-04] MEDS: PANTOPRAZOLE 40 MG TABLET PO ×2 (09:29→22:57)
[2024-12-04] MEDS: INSULIN GLARGINE (*BKC) 100 UNITS/ML 18 UNITS SUB-Q (09:30)
--- NOTE | 2024-12-04 11:24 | P.PNIM_ITS ---
Progress Note: A&P Assessment and Plan (1) Acute hypoxic respiratory failure: Code(s): J96.01 - Acute respiratory failure with hypoxia Status: Acute Assessment and Plan: Acute respiratory failure likely related to SIRS/sepsis -11/22: CTA chest: No large central PE, small right pleural effusion, dependent atelectasis, ascites, free intraperitoneal air in the upper abdomen correlate for some recent surgery -patient was initially placed on 10 L nasal cannula, now on high-flow therapy 60 L flow rate and 77% FiO2 -patient significantly tachypneic, breathing 40+ times a minute, with O2 side of 90-92% -11/23: Intubated in the ICU -chest x-ray, ventilator settings and ABGs reviewed this morning. 09/08 PSV SBT done for close to an hour. RSBI, ABGI and Vitals acceptable. Pt awake and following commands. Will extubate and monitor. NPO for now. -continue bronchodilators -off fentanyl. Continue to wean Precedex -discontinued IV fluids -11/26:responded well to Bumex -11/27: Will diurese again today 11/29 Lasix was given. Patient was extubated after a successful weaning trial. 11/30 on 2 L nasal cannula. Continue bronchodilators p.r.n. continue incentive spirometry. 12/02/2024 on room air (2) Septic shock: Code(s): A41.9 - Sepsis, unspecified organism; R65.21 - Severe sepsis with septic shock Status: Acute Assessment and Plan: Patient POD #3, tachypneic with hypoxic respiratory failure, lactic acidosis, increasing WBC count, anion gap metabolic acidosis -initial lactic acids were elevated on 11/24/2023 when patient was brought to the ICU, adequately fluid-resuscitated before patient was taken to the OR -sepsis secondary to ruptured appendicitis -11/22: CT scan of the abdomen and pelvis this morning showed postop changes consider the since surgery likely appendectomy, no abscess identified. Small pleural effusion with dependent atelectasis -11/23: Repeat CT scan of the abdomen and pelvis without contrast showed increasing free intraperitoneal air suspicious for bowel leak. Increasing fluid in the mesentery with ascites involving the perihepatic space. No discrete abscess identified. Increasing consolidation of the lower lobes which may represent atelectasis or pneumonia. Developing small pleural effusions -discussed CT results with surgeon, - 11/23: Exploratory laparotomy with ileocolic resection for bowel perforation (cecal perforation) with spillage of bowel contents in the abdominal cavity -OFF ALL PRESSORS, maintain MAP > 65 mmHg or SBP> 100 mmHg -WEAN stress dose steroids -11/24: Blood cultures negative x2 -11/24: Sputum cultures pending -11/24: Urine cultures no growth -continue Zosyn (11/20) and micafungin (11/24) 11/26: Patient has been febrile, Zosyn was discontinued, meropenem and vancomycin added due to consolidation in the right lung > left long as seen on CT scan as under 11/26: CT brain no acute intracranial hemorrhage or suspicious mass effect 11/26: Bilateral lower extremity venous Dopplers were negative for DVTs 11/28: Bilateral upper venous Dopplers showed DVT of the right subclavian, axillary and brachial veins. (patient does have a right arm PICC line. Fevers possibly due to DVT and pneumonia 11/26/2024: CTA chest/abdomen/pelvis IMPRESSION: No pulmonary embolus. No aortic dissection. Small bilateral pleural effusions, right greater than left with adjacent consolidation, an interval change from prior. Gallbladder distention with mural thickening and surrounding inflammatory change. Right middle and lower lobe nodules, for which follow-up may be performed once patient is beyond this acute phase. No discrete intraperitoneal air is appreciated. Simple free fluid within the dependent portions of the abdomen. Fever curve is improving. White count is improving Continue meropenem(Since 11/26) vancomycin (since 11/26)and micafungin (11/24- 11/30), day 9 currently. leukocytosis persist but stable. paitnet fever coming down. plan to taper off antibiotics tomorrow if remains afebrile (3) Status post appendectomy: Onset Date: 11/20/24 Code(s): Z90.49 - Acquired absence of other specified parts of digestive tract Status: Acute Assessment and Plan: 11/20: Discussed with surgery, NG tube will be inserted due to abdominal distension 11/23: Exploratory laparotomy with ileocolic resection for bowel perforation (cecal perforation) with spillage of bowel contents in the abdominal cavity 11/24: Wound VAC placed Treatment plans as above -pain control -11/25: started on TPN after discussing with surgery 11/27: Discussed with surgery, will start trickle tube feeds, started 10 mL, increased to a goal of 20 mL Patient is NPO at this time. Wound VAC placed on. Management per General surgery recommendations patient started on oral diet Hold off further TPN and monitor oral diet if okay with surgery (4) DVT (deep venous thrombosis): Qualifiers: DVT location: upper extremity Affected thrombotic vein of extremity: axillary Chronicity: acute Laterality: right Qualified Code(s): I82.A11 - Acute embolism and thrombosis of right axillary vein Code(s): I82.409 - Acute embolism and thrombosis of unspecified deep veins of unspecified lower extremity Status: Acute Assessment and Plan: 11/28: Patient continues to have fevers, bilateral upper extremity venous Doppler with evidence of DVT of the right subclavian, axillary and brachial vein -discuss with surgery regarding therapeutic Lovenox to which the agreeable -11/28: Started patient on therapeutic Lovenox -right PICC line in place Lovenox on hold due to GI bleed switched to heparin gtt. Monitor H&H may switch to oral anticoagulation if remains stable (5) Hyperglycemia: Code(s): R73.9 - Hyperglycemia, unspecified Status: Acute Assessment and Plan: Related to stress response and/or steroids -Accu-Cheks and sliding scale insulin Adjust dose of insulin as needed (6) Electrolyte abnormality: Code(s): E87.8 - Other disorders of electrolyte and fluid balance, not elsewhere classified Status: Acute Assessment and Plan: Replace low potassium (7) Melena: Code(s): K92.1 - Melena Status: Acute Assessment and Plan: 12/02/2024 having melena Monitor H&H Protonix drip Hold Lovenox GI consultation underwent EGD : gastritis/duodenitis on ppi bid GI okay with anticoagulation and started on heparin gtt. monitor on heparin gtt for now Plan DVT prophylaxis: Lovenox now on heparin gtt Stress ulcer prophylaxis: Protonix Nutrition: TPN, feeding as per General surgery Code Status: Full code Incentive spirometry Subjective Date/time seen: 12/04/24 11:24 Interval history: No overnight events. Patient had a dark stool yesterday. No further bowel movement since then. Some gas pain reported no nausea vomiting tolerating diet. Work with therapy yesterday. Review of Systems Review of Systems: All systems reviewed & are unremarkable except as noted in HPI and below Exam Narrative: Patient is comfortable, NAD HEENT: eyes are clear and none icteric LUNGS:CTA HEART: RR S1S2 ABD: BS+, distended surgical incision site with wound VAC in place Lower extremities: Trace edema SKIN: nonjaundiced Neuro: grossly intact. Objective Data Vital Signs Vital Signs: Vital Signs - 24 hr 12/03/24 12:00 12/03/24 12:00 12/03/24 12:00 Temperature 100.1 F H Pulse Rate 83 91 Respiratory Rate 16 Blood Pressure 144/84 H Pulse Oximetry 97 100 Oxygen Delivery Room Air 12/03/24 14:00 12/03/24 16:00 12/03/24 16:00 Temperature 98.8 F Pulse Rate 93 84 Respiratory Rate 24 H Blood Pressure 134/65 Pulse Oximetry 98 100 Oxygen Delivery Room Air 12/03/24 16:00 12/03/24 18:00 12/03/24 20:00 Temperature 98.6 F Pulse Rate 87 98 89 Respiratory Rate 16 Blood Pressure 129/70 Pulse Oximetry 96 Oxygen Delivery 12/03/24 20:00 12/03/24 21:30 12/03/24 22:00 Temperature Pulse Rate 86 89 75 Respiratory Rate 16 Blood Pressure Pulse Oximetry 96 Oxygen Delivery Room Air 12/04/24 00:00 12/04/24 00:00 12/04/24 00:12 Temperature 98.6 F Pulse Rate 78 76 78 Respiratory Rate 18 18 Blood Pressure 127/68 Pulse Oximetry 93 93 Oxygen Delivery Room Air 12/04/24 02:00 12/04/24 04:00 12/04/24 04:00 Temperature 98.5 F Pulse Rate 70 72 77 Respiratory Rate 16 Blood Pressure 127/63 Pulse Oximetry 97 Oxygen Delivery 12/04/24 04:30 12/04/24 06:00 12/04/24 08:00 Temperature 98.7 F Pulse Rate 72 76 78 Respiratory Rate 16 24 H Blood Pressure 129/68 Pulse Oximetry 97 94 Oxygen Delivery Room Air Intake/Output Intake/Output: Intake & Output 12/01/24 12/02/24 12/03/24 12/04/24 23:59 23:59 23:59 23:59 Intake Total 3605.3 4280.8 6064.3 2704.1 Output Total 2550 3600 9425 2810 Balance 1055.3 680.8 -3360.7 -105.9 Meds/Results Medications: Active Medications Generic Name Dose Route Start Last Admin Trade Name Frekadeem PRN Reason Stop Dose Admin Acetaminophen 650 mg 11/29/24 09:42 12/02/24 20:20 Acetaminophen 325 Mg Tablet PO 650 mg Q4H PRN Administration Mild Pain (1-3) or Fever Hydrocodone Bitart/Acetaminophen 1 tab 11/29/24 09:42 12/02/24 20:20 Hydrocodone/Acetaminophen (*Crx) 5-325 Mg Tablet PO 1 tab Q4H PRN Administration Pain Rated 4-6 Dextrose 12.5 gm 11/24/24 08:03 Dextrose 50% 25 Gm/50 Ml Syringe IV PUSH PRN PRN Hypoglycemia Protocol Enoxaparin Sodium 115 mg 11/28/24 21:00 12/02/24 10:07 Enoxaparin 120 Mg/0.8 Ml Syringe SUB-Q Not Given Q12HR TAMICA Glucagon 1 mg 11/24/24 08:03 Glucagon For Inj 1 Mg Vial IM PRN PRN Hypoglycemia Protocol Glucose 15 gm 11/24/24 08:03 Glucose Oral Gel 15 Gm Of Glucse In 37.5 Gm Tube PO PRN PRN Hypoglycemia Protocol Heparin Sodium (Porcine) 7,500 units 12/02/24 16:13 12/03/24 16:07 Heparin Sodium 5,000 Units/Ml Vial IV PUSH 7,500 units PRN PRN Administration aPTT less than 55 seconds Heparin Sodium (Porcine) 3,500 units 12/02/24 16:13 Heparin Sodium 5,000 Units/Ml Vial IV PUSH PRN PRN aPTT 55 - 70 seconds Hydralazine HCl 20 mg 11/30/24 08:04 Hydralazine Hcl 20 Mg/Ml Vial IV PUSH Q4H PRN SBP more than 160 Dextrose 1,000 mls @ 100 mls/hr 11/24/24 08:03 Dextrose 5% 1,000 Ml IVPB PRN PRN Hypoglycemia Protocol Multivitamins 1.25 ml/ 1,002.5 mls @ 70 mls/hr 11/25/24 15:00 12/03/24 22:48 Multivitamins 1.25 ml/ Amino IV CONT 70 mls/hr Acids/Dextrose .[id number] TAMICA Administration Protocol Dextrose 1,000 mls @ 50 mls/hr 11/25/24 14:02 Dextrose 10% IV CONT .Q20H PRN if PN is interrupted Fat Emulsion Intravenous 250 mls @ 20.833 mls/hr 11/25/24 15:00 12/04/24 04:59 Lipids 20% IVPB Infused Q24H TAMICA Infusion Meropenem 1 gm/ Sodium 100 mls @ 200 mls/hr 11/26/24 15:00 12/04/24 09:29 Chloride IVPB 200 mls/hr Q8H TAMICA Administration Heparin Sodium/Dextrose 25,000 units in 250 mls @ 20 mls/hr 12/02/24 16:15 12/04/24 04:58 Heparin Sodium/D5w 100 Units/Ml IV CONT 2,000 units/hr .[id number] TAMICA 20 mls/hr Titration Protocol 2,000 UNITS/HR Vancomycin HCl 2,000 mg in 500 mls @ 250 mls/hr 12/03/24 00:00 12/04/24 10:34 Vancomycin 2,000 Mg/Ns 500 Ml IVPB 250 mls/hr Q8H TAMICA Administration Insulin Aspart 3 - 6 units 11/24/24 09:00 12/04/24 08:02 Insulin Aspart (*Bkc) 100 Units/Ml SUB-Q Not Given Q4H [facility] Protocol Insulin Glargine 18 units 11/30/24 09:00 12/04/24 09:30 Insulin Glargine (*Bkc) 100 Units/Ml SUB-Q 18 units DAILY TAMICA Administration Ipratropium [place] 0.5 mg 11/30/24 09:51 Ipratropium Br 0.02% Inh Soln 0.5 Mg/2.5 Ml Vial INHALATION Q6HRT PRN Wheezing Levalbuterol HCl 0.63 mg 11/30/24 09:51 Levalbuterol Neb 1.25 Mg/3 Ml INHALATION Q6HRT PRN Wheezing Melatonin 5 mg 11/30/24 19:20 12/03/24 22:40 Melatonin 5 Mg Tablet PO 5 mg HS PRN Administration sleep Morphine Sulfate 4 mg 11/29/24 09:42 12/02/24 10:32 Morphine Sulfate (*Crx) 4 Mg/Ml Inj IV PUSH 4 mg Q2H PRN Administration Pain Rated 7-10 Pantoprazole Sodium 40 mg 12/02/24 21:00 12/04/24 09:29 Pantoprazole 40 Mg Tablet PO 40 mg Q12HR TAMICA Administration Sodium Chloride 10 ml 11/23/24 14:00 12/04/24 05:02 Central Line Flush IV PUSH 10 ml Q8HR TAMICA Administration Sodium Chloride 10 ml 11/23/24 13:39 Central Line Flush IV PUSH PRN PRN with TPN bag changes Sodium Chloride 20 ml 11/23/24 13:39 12/04/24 04:49 Central Line Flush IV PUSH 20 ml PRN PRN Administration after blood draws Radiology Results: ITS Impressions Chest CTA 11/23/24 05:53 IMPRESSION: 1. Free intraperitoneal air in the upper abdomen. Correlate for recent surgery. In the absence of known surgery this is most likely secondary to bowel perforation. Clinically correlate. 2: No large central pulmonary embolism. Limited evaluation of the secondary and tertiary pulmonary arteries. 3: Small right pleural effusion. Dependent atelectasis. 4: Ascites. Abdomen/Pelvis CT 11/23/24 13:00 IMPRESSION: 1. Increasing free intraperitoneal air 11/22/2024, suspicious for bowel leak. Increasing fluid in the mesentery with ascites involving the perihepatic space. No discrete abscess identified. Consider correlation with contrast-enhanced CT abdomen. 2: Increasing consolidation of the lower lobes which may represent atelectasis or pneumonia. 3: Developing small pleural effusions. Abdomen X-Ray 11/23/24 14:04 IMPRESSION: 1: NG tube tip in the stomach. 2: Bibasilar airspace disease, edema versus pneumonia. Head CT 11/26/24 14:47 Impression: No acute intracranial hemorrhage or suspicious mass effect. Chest/Abdomen/Pelvis CTA 11/26/24 14:58 IMPRESSION: No pulmonary embolus. No aortic dissection. Small bilateral pleural effusions, right greater than left with adjacent consolidation, an interval change from prior. Gallbladder distention with mural thickening and surrounding inflammatory change. Right middle and lower lobe nodules, for which follow-up may be performed once patient is beyond this acute phase. No discrete intraperitoneal air is appreciated. Simple free fluid within the dependent portions of the abdomen. Venous Doppler Study 11/28/24 11:19 IMPRESSION: 1. Deep venous thrombosis of the right subclavian, axillary and brachial veins. Dr. Kam Gongora discussed with the audit clerks supervisor]Kurt Castaneda at 11/28/2024 11:23 CDT. Chest X-Ray 12/03/24 06:44 IMPRESSION: 1. Persistent small bilateral pleural effusions. Labs Labs: Laboratory Results - last 24 hr 12/03/24 12/03/24 12/03/24 11:28 15:37 17:01 WBC RBC Hgb 8.7 L Hct 26.0 L MCV MCH MCHC RDW Plt Count MPV APTT 41.7 H Sodium 131 L Potassium 2.7 L* Chloride 102 Carbon Dioxide 26 Anion Gap 3 L BUN 16 Creatinine 0.55 L Estim Creat Clear Calc 163 Estimated GFR > 60 Glucose 133 H POC Capillary Glucose 165 H 144 H Calcium 7.6 L Phosphorus Magnesium Total Bilirubin AST ALT Alkaline Phosphatase Total Protein Albumin Vancomycin Trough 14.0 12/03/24 12/03/24 12/04/24 19:48 22:16 00:47 WBC RBC Hgb Hct MCV MCH MCHC RDW Plt Count MPV APTT 72.0 H Sodium Potassium 2.8 L* Chloride Carbon Dioxide Anion Gap BUN Creatinine Estim Creat Clear Calc Estimated GFR Glucose POC Capillary Glucose 179 H 161 H Calcium Phosphorus Magnesium Total Bilirubin AST ALT Alkaline Phosphatase Total Protein Albumin Vancomycin Trough 12/04/24 12/04/24 12/04/24 04:19 04:58 07:37 WBC 15.1 H RBC 2.58 L Hgb 8.2 L Hct 24.2 L MCV 93.8 MCH 31.8 MCHC 33.9 RDW 12.6 Plt Count 422 H MPV 10.4 APTT 89.2 H Sodium 131 L Potassium 3.3 L Chloride 102 Carbon Dioxide 26 Anion Gap 3 L BUN 15 Creatinine 0.53 L Estim Creat Clear Calc 169 Estimated GFR > 60 Glucose 162 H POC Capillary Glucose 137 H 181 H Calcium 7.3 L Phosphorus 3.4 Magnesium 2.1 Total Bilirubin 0.6 AST 41 ALT 63 H Alkaline Phosphatase 160 H Total Protein 4.9 L Albumin 2.1 L Vancomycin Trough
--- NOTE | 2024-12-04 14:41 | WPDPN ---
Progress Note: A&P Assessment and Plan (1) DVT (deep venous thrombosis): Qualifiers: DVT location: upper extremity Affected thrombotic vein of extremity: axillary Chronicity: acute Laterality: right Qualified Code(s): I82.A11 - Acute embolism and thrombosis of right axillary vein Code(s): I82.409 - Acute embolism and thrombosis of unspecified deep veins of unspecified lower extremity Status: Acute Assessment and Plan: Right upper extremity DVT. No further evidence of GI bleeding. May try to restart systemic anticoagulation orally and next 1 to 2 days. (2) Protein-calorie malnutrition, severe: Code(s): E43 - Unspecified severe protein-calorie malnutrition Status: Acute Assessment and Plan: Albumin is 2.1 today. Continue TPN for today and possibly wean off tomorrow and maybe advanced diet with supplements tomorrow. (3) Status post appendectomy: Onset Date: 11/20/24 Code(s): Z90.49 - Acquired absence of other specified parts of digestive tract Status: Acute (4) Perforated abdominal viscus: Code(s): R19.8 - Other specified symptoms and signs involving the digestive system and abdomen Status: Acute Assessment and Plan: Status post ileocolic resection for perforated cecum postoperatively and sepsis. Wound open and wound VAC in place. No evidence of EC fistula at this time. Patient is having some bowel movements. He continues to be stable with probably transfer him to regular floor tomorrow. Continue IV antibiotics given his sepsis and fecal peritonitis. Subjective Date/time seen: 12/04/24 14:41 Interval history: Patient continues to slowly improve. Got up and managed to mobilize with physical therapy and occupational therapy today. Gets tired pretty quickly. Tolerating low-fiber diet and yogurt. Having bowel movements which are soft and still has a small amount of old blood. No bright red blood or melanotic stools. White blood count continues to to be stable. It is 15,000 again today. No high fevers over the past 24hours. He looks to be in better spirits. He continues on TPN for right now. Exam GI: Other: Abdomen is soft and nondistended. Midline incision wound VAC in place. Output from the wound VAC is not feculent and non bilious. No redness around the dressing. Objective Data Vital Signs Vital Signs: Vital Signs - 24 hr 12/03/24 16:00 12/03/24 16:00 12/03/24 16:00 Temperature 37.1 C Pulse Rate 84 87 Respiratory Rate 24 H Blood Pressure 134/65 Pulse Oximetry 98 100 Oxygen Delivery Room Air 12/03/24 18:00 12/03/24 20:00 12/03/24 20:00 Temperature 37.0 C Pulse Rate 98 89 86 Respiratory Rate 16 Blood Pressure 129/70 Pulse Oximetry 96 Oxygen Delivery 12/03/24 21:30 12/03/24 22:00 12/04/24 00:00 Temperature 37.0 C Pulse Rate 89 75 78 Respiratory Rate 16 18 Blood Pressure 127/68 Pulse Oximetry 96 93 Oxygen Delivery Room Air 12/04/24 00:00 12/04/24 00:12 12/04/24 02:00 Temperature Pulse Rate 76 78 70 Respiratory Rate 18 Blood Pressure Pulse Oximetry 93 Oxygen Delivery Room Air 12/04/24 04:00 12/04/24 04:00 12/04/24 04:30 Temperature 36.9 C Pulse Rate 72 77 72 Respiratory Rate 16 16 Blood Pressure 127/63 Pulse Oximetry 97 97 Oxygen Delivery Room Air 12/04/24 06:00 12/04/24 08:00 12/04/24 08:00 Temperature 37.1 C Pulse Rate 76 78 89 Respiratory Rate 24 H 16 Blood Pressure 129/68 Pulse Oximetry 94 100 Oxygen Delivery Room Air 12/04/24 08:00 12/04/24 10:00 12/04/24 11:49 Temperature 36.7 C Pulse Rate 86 93 92 Respiratory Rate 32 H Blood Pressure 124/68 Pulse Oximetry 99 Oxygen Delivery 12/04/24 12:00 Temperature Pulse Rate 89 Respiratory Rate 16 Blood Pressure Pulse Oximetry 100 Oxygen Delivery Room Air Intake/Output Intake/Output: Intake & Output 12/01/24 12/02/24 12/03/24 12/04/24 23:59 23:59 23:59 23:59 Intake Total 3605.3 4280.8 6064.3 3121.4 Output Total 2550 3600 9425 2810 Balance 1055.3 680.8 -3360.7 311.4 Meds/Results Medications: Active Medications Generic Name Dose Route Start Last Admin Trade Name Freq PRN Reason Stop Dose Admin Acetaminophen 650 mg 11/29/24 09:42 12/02/24 20:20 Acetaminophen 325 Mg Tablet PO 650 mg Q4H PRN Administration Mild Pain (1-3) or Fever Hydrocodone Bitart/Acetaminophen 1 tab 11/29/24 09:42 12/02/24 20:20 Hydrocodone/Acetaminophen (*Crx) 5-325 Mg Tablet PO 1 tab Q4H PRN Administration Pain Rated 4-6 Dextrose 12.5 gm 11/24/24 08:03 Dextrose 50% 25 Gm/50 Ml Syringe IV PUSH PRN PRN Hypoglycemia Protocol Enoxaparin Sodium 115 mg 11/28/24 21:00 12/02/24 10:07 Enoxaparin 120 Mg/0.8 Ml Syringe SUB-Q Not Given Q12HR TAMICA Glucagon 1 mg 11/24/24 08:03 Glucagon For Inj 1 Mg Vial IM PRN PRN Hypoglycemia Protocol Glucose 15 gm 11/24/24 08:03 Glucose Oral Gel 15 Gm Of Glucse In 37.5 Gm Tube PO PRN PRN Hypoglycemia Protocol Heparin Sodium (Porcine) 7,500 units 12/02/24 16:13 12/03/24 16:07 Heparin Sodium 5,000 Units/Ml Vial IV PUSH 7,500 units PRN PRN Administration aPTT less than 55 seconds Heparin Sodium (Porcine) 3,500 units 12/02/24 16:13 Heparin Sodium 5,000 Units/Ml Vial IV PUSH PRN PRN aPTT 55 - 70 seconds Hydralazine HCl 20 mg 11/30/24 08:04 Hydralazine Hcl 20 Mg/Ml Vial IV PUSH Q4H PRN SBP more than 160 Dextrose 1,000 mls @ 100 mls/hr 11/24/24 08:03 Dextrose 5% 1,000 Ml IVPB PRN PRN Hypoglycemia Protocol Multivitamins 1.25 ml/ 1,002.5 mls @ 70 mls/hr 11/25/24 15:00 12/03/24 22:48 Multivitamins 1.25 ml/ Amino IV CONT 70 mls/hr Acids/Dextrose .[id number] TAMICA Administration Protocol Dextrose 1,000 mls @ 50 mls/hr 11/25/24 14:02 Dextrose 10% IV CONT .Q20H PRN if PN is interrupted Fat Emulsion Intravenous 250 mls @ 20.833 mls/hr 11/25/24 15:00 12/04/24 04:59 Lipids 20% IVPB Infused Q24H TAMICA Infusion Meropenem 1 gm/ Sodium 100 mls @ 200 mls/hr 11/26/24 15:00 12/04/24 09:29 Chloride IVPB 200 mls/hr Q8H TAMICA Administration Heparin Sodium/Dextrose 25,000 units in 250 mls @ 20 mls/hr 12/02/24 16:15 12/04/24 14:29 Heparin Sodium/D5w 100 Units/Ml IV CONT 2,000 units/hr .[id number] TAMICA 20 mls/hr Administration Protocol 2,000 UNITS/HR Vancomycin HCl 2,000 mg in 500 mls @ 250 mls/hr 12/03/24 00:00 12/04/24 10:34 Vancomycin 2,000 Mg/Ns 500 Ml IVPB 250 mls/hr Q8H TAMICA Administration Insulin Aspart 3 - 6 units 11/24/24 09:00 12/04/24 11:58 Insulin Aspart (*Bkc) 100 Units/Ml SUB-Q Not Given Q4H [facility] Protocol Insulin Glargine 18 units 11/30/24 09:00 12/04/24 09:30 Insulin Glargine (*Bkc) 100 Units/Ml SUB-Q 18 units DAILY TAMICA Administration Ipratropium [place] 0.5 mg 11/30/24 09:51 Ipratropium Br 0.02% Inh Soln 0.5 Mg/2.5 Ml Vial INHALATION Q6HRT PRN Wheezing Levalbuterol HCl 0.63 mg 11/30/24 09:51 Levalbuterol Neb 1.25 Mg/3 Ml INHALATION Q6HRT PRN Wheezing Melatonin 5 mg 11/30/24 19:20 12/03/24 22:40 Melatonin 5 Mg Tablet PO 5 mg HS PRN Administration sleep Morphine Sulfate 4 mg 11/29/24 09:42 12/02/24 10:32 Morphine Sulfate (*Crx) 4 Mg/Ml Inj IV PUSH 4 mg Q2H PRN Administration Pain Rated 7-10 Pantoprazole Sodium 40 mg 12/02/24 21:00 12/04/24 09:29 Pantoprazole 40 Mg Tablet PO 40 mg Q12HR TAMICA Administration Sodium Chloride 10 ml 11/23/24 14:00 12/04/24 05:02 Central Line Flush IV PUSH 10 ml Q8HR TAMICA Administration Sodium Chloride 10 ml 11/23/24 13:39 Central Line Flush IV PUSH PRN PRN with TPN bag changes Sodium Chloride 20 ml 11/23/24 13:39 12/04/24 04:49 Central Line Flush IV PUSH 20 ml PRN PRN Administration after blood draws Radiology Results: ITS Impressions Chest CTA 11/23/24 05:53 IMPRESSION: 1. Free intraperitoneal air in the upper abdomen. Correlate for recent surgery. In the absence of known surgery this is most likely secondary to bowel perforation. Clinically correlate. 2: No large central pulmonary embolism. Limited evaluation of the secondary and tertiary pulmonary arteries. 3: Small right pleural effusion. Dependent atelectasis. 4: Ascites. Abdomen/Pelvis CT 11/23/24 13:00 IMPRESSION: 1. Increasing free intraperitoneal air 11/22/2024, suspicious for bowel leak. Increasing fluid in the mesentery with ascites involving the perihepatic space. No discrete abscess identified. Consider correlation with contrast-enhanced CT abdomen. 2: Increasing consolidation of the lower lobes which may represent atelectasis or pneumonia. 3: Developing small pleural effusions. Abdomen X-Ray 11/23/24 14:04 IMPRESSION: 1: NG tube tip in the stomach. 2: Bibasilar airspace disease, edema versus pneumonia. Head CT 11/26/24 14:47 Impression: No acute intracranial hemorrhage or suspicious mass effect. Chest/Abdomen/Pelvis CTA 11/26/24 14:58 IMPRESSION: No pulmonary embolus. No aortic dissection. Small bilateral pleural effusions, right greater than left with adjacent consolidation, an interval change from prior. Gallbladder distention with mural thickening and surrounding inflammatory change. Right middle and lower lobe nodules, for which follow-up may be performed once patient is beyond this acute phase. No discrete intraperitoneal air is appreciated. Simple free fluid within the dependent portions of the abdomen. Venous Doppler Study 11/28/24 11:19 IMPRESSION: 1. Deep venous thrombosis of the right subclavian, axillary and brachial veins. Dr. Kam Gongora discussed with the referral clerkPhilippe Castaneda at 11/28/2024 11:23 CDT. Chest X-Ray 12/03/24 06:44 IMPRESSION: 1. Persistent small bilateral pleural effusions. Labs Labs: Laboratory Results - last 24 hr 12/03/24 12/03/24 12/03/24 15:37 17:01 19:48 WBC RBC Hgb 8.7 L Hct 26.0 L MCV MCH MCHC RDW Plt Count MPV APTT 41.7 H Sodium 131 L Potassium 2.7 L* Chloride 102 Carbon Dioxide 26 Anion Gap 3 L BUN 16 Creatinine 0.55 L Estim Creat Clear Calc 163 Estimated GFR > 60 Glucose 133 H POC Capillary Glucose 144 H 179 H Calcium 7.6 L Phosphorus Magnesium Total Bilirubin AST ALT Alkaline Phosphatase Total Protein Albumin Vancomycin Trough 14.0 12/03/24 12/04/24 12/04/24 22:16 00:47 04:19 WBC RBC Hgb Hct MCV MCH MCHC RDW Plt Count MPV APTT 72.0 H Sodium Potassium 2.8 L* Chloride Carbon Dioxide Anion Gap BUN Creatinine Estim Creat Clear Calc Estimated GFR Glucose POC Capillary Glucose 161 H 137 H Calcium Phosphorus Magnesium Total Bilirubin AST ALT Alkaline Phosphatase Total Protein Albumin Vancomycin Trough 12/04/24 12/04/24 12/04/24 04:58 07:37 11:22 WBC 15.1 H RBC 2.58 L Hgb 8.2 L Hct 24.2 L MCV 93.8 MCH 31.8 MCHC 33.9 RDW 12.6 Plt Count 422 H MPV 10.4 APTT 89.2 H Sodium 131 L Potassium 3.3 L Chloride 102 Carbon Dioxide 26 Anion Gap 3 L BUN 15 Creatinine 0.53 L Estim Creat Clear Calc 169 Estimated GFR > 60 Glucose 162 H POC Capillary Glucose 181 H 181 H Calcium 7.3 L Phosphorus 3.4 Magnesium 2.1 Total Bilirubin 0.6 AST 41 ALT 63 H Alkaline Phosphatase 160 H Total Protein 4.9 L Albumin 2.1 L Vancomycin Trough
[2024-12-04] MEDS: AMINO ACIDS 5%/DEXTROSE 15% 1,000 ML with MULTIVITAMINS-12 INJ VIAL 1 1.25 ML, MULTIVIT... 70 ML IV CONT (16:12)
[2024-12-04] MEDS: MELATONIN 5 MG TABLET PO (22:57)
[2024-12-05] VITALS (18 sets, daily range): BP systolic 112–131; BP diastolic 67–89; PULSE 70–119; RESP 18–22; TEMP 36.7–37.1; O2SAT 93–100
[2024-12-05] MEDS: VANCOMYCIN 2,000 MG/NS 500 ML 2,000 MG/500 ML BAG 250 MG IVPB ×2 (00:40→09:21)
[2024-12-05] MEDS: HEPARIN SOD/D5W 100 UNITS/ML 25,000 UNITS/250 ML BAG 20 UNITS IV CONT ×2 (04:16→17:29)
[2024-12-05] MEDS: CENTRAL LINE FLUSH 10 ML IV PUSH ×2 (06:46→15:58)
[2024-12-05] MEDS: MEROPENEM 1 GM in SODIUM CHLORIDE 0.9% IV 100 ML 200 ML IVPB ×3 (06:46→23:26)
[2024-12-05] MEDS: CENTRAL LINE FLUSH 20 ML IV PUSH (06:57)
[2024-12-05 07:18] LABS: Hematocrit 21.6 % (42.0-52.0); Hemoglobin 7.1 g/dL (14.0-18.0); Immature Granulocyte Percent A 1.5 % (0-0.5); Lymphocytes Absolute Auto 1.46 K/mm3 (0.9-3.2); Mean Corpuscular HGB Conc 32.9 g/dl (32-36); Mean Corpuscular Hemoglobin 31.3 pg (26-34); Mean Corpuscular Volume 95.2 fl (80-100); Nucleated Red Blood Cells Absolute Auto 0.000 K/mm3 (0.0-0.012); Nucleated Red Blood Cells Perc 0.0 % (0.0-0.2); Platelet Count Result 371 k/mm3 (150-375); Red Blood Count 2.27 M/mm3 (4.6-6.20); White Blood Count 11.0 K/mm3 (4.5-10.0)
[2024-12-05 07:33] LABS: Partial Thromboplastin Time 99.3 Seconds (22.3-36.8)
[2024-12-05 07:39] LABS: Alanine Aminotransferase 46 U/L (6-50); Albumin Level 2.0 g/dL (3.5-5.1); Alkaline Phosphatase 142 U/L (38-126); Anion Gap 1 mmol/L (4-12); Aspartate Amino Transferase 32 U/L (17-59); Bilirubin,Total 0.5 mg/dL (0.2-1.3); Blood Urea Nitrogen 13 mg/dL (9-20); Calcium 7.4 mg/dL (8.4-10.2); Carbon Dioxide 27 mmol/L (22-30); Chloride 109 mmol/L (98-107); Estimated CRCL calculation 175 ml/min; Estimated Glomerular Filt Rate > 60; Glucose 152 mg/dL (65-110); Magnesium 2.1 mg/dL (1.6-2.3); Potassium 2.9 mmol/L (3.4-5.0); Sodium 137 mmol/L (137-145); Total Protein 4.7 g/dL (6.3-8.2)
[2024-12-05] MEDS: INSULIN GLARGINE (*BKC) 100 UNITS/ML 18 UNITS SUB-Q (09:21)
[2024-12-05] MEDS: PANTOPRAZOLE 40 MG TABLET PO ×2 (09:22→21:26)
--- NOTE | 2024-12-05 10:20 | PCOTNOTE ---
Attempted to see Patient at this time. Patient unavailable at this time, Patient has staff present, doing his wound care change. Will try back at a later time.
[2024-12-05] MEDS: MORPHINE SULFATE (*CRX) 4 MG/ML INJ IV PUSH (10:32)
--- NOTE | 2024-12-05 14:32 | PCPTNOTE ---
Attempted to see patient for PT, however patient was working with OT.
--- NOTE | 2024-12-05 15:26 | P.PNGS_ITS ---
Progress Note: A&P Assessment and Plan (1) Perforated abdominal viscus: Code(s): R19.8 - Other specified symptoms and signs involving the digestive system and abdomen Status: Acute Assessment and Plan: * Status post ileocolic resection on 11/23 for perforated cecum postoperatively and sepsis. Wound VAC changed today. It appears he has developed a hematoma in the wound bed. There is no active bleeding at this time, but we will discontinue the wound VAC for now until evaluated by Dr. Mckeon. Continue IV antibiotics given his sepsis and fecal peritonitis. WBC count trending down to 11,000 (day 10 of IV Meropenem). (2) DVT (deep venous thrombosis): Qualifiers: DVT location: upper extremity Affected thrombotic vein of extremity: axillary Chronicity: acute Laterality: right Qualified Code(s): I82.A11 - A cute embolism and thrombosis of right axillary vein Code(s): I82.409 - Acute embolism and thrombosis of unspecified deep veins of unspecified lower extremity Status: Acute Assessment and Plan: * Right upper extremity DVT. No longer having bloody stools. He is currently on a heparin infusion. (3) Protein-calorie malnutrition, severe: Code(s): E43 - Unspecified severe protein-calorie malnutrition Status: Acute Assessment and Plan: * Patient tolerating a solid diet well. Reportedly eating more than 75% of his meals. Will stop TPN. Albumin still low at 2.0. Will add dietary supplements today. (4) Status post appendectomy: Onset Date: 11/20/24 Code(s): Z90.49 - Acquired absence of other specified parts of digestive tract Status: Acute Assessment and Plan: * S/p attempted laparoscopic appendectomy, open appendectomy on 11/20. Plan I have discussed the patient's case and plan of care with Dr. Mckeon. Subjective Subjective Date/Time Seen: 12/05/24 10:26 Patient reports: no new complaints, tolerating a regular diet, voiding w/o difficulty, bowel movement, diarrhea (no blood in stool) and afebrile (since 12/03) Interval history: Patient seen with wound care nurses for wound VAC change. No specific complaints at this time. Patient denies any abdominal pain other than with dressing changes. He is tolerating a diet and eating well. His bowels are moving. WBC count down from 15 to 11 today. Exam Const: General: comfortable and no acute distress Orientation/consciousness: patient oriented x3 GI: Inspection: other (abdomen is mildly distended) GI Palp: Yes Soft to palpation, No Tenderness to palpation present (GI) (only tender at the abdominal wound with removing the dressing), No Guarding due to palpation present (GI) and No Rebound tenderness present Auscultation: normal bowel sounds Other: Wound VAC dressing removed. Moderate bloody output from the wound VAC which is not feculent and nonbilious. No redness around the wound. Abdominal wound measures 24 x 8.5 x 3.8 cm with the width of the wound extending beneath the skin subcutaneous tissue. There is undermining more on the right than left. The fascial sutures are visible in the base of the wound with small areas of pink tissue and majority pale yellow slough at the base of the wound, circumferential borders of the wound have pink granulating tissue. There is a 4cm raised dark red/purple area in the right lower aspect of the wound bed that has the appearance of a hematoma within the deeper tissues. No active bleeding within the wound. Wet to dry dressing applied. Objective Data Vital Signs Vital Signs: Vital Signs - 24 hr 12/04/24 16:00 12/04/24 16:00 12/04/24 18:00 Temperature 98.3 F Pulse Rate 93 89 99 Respiratory Rate 20 16 Blood Pressure 125/79 Pulse Oximetry 100 100 Oxygen Delivery Room Air Fraction of Inspired Oxygen 12/04/24 19:47 12/04/24 20:00 12/04/24 20:33 Temperature 98.4 F Pulse Rate 90 88 Respiratory Rate 20 Blood Pressure 136/69 Pulse Oximetry 100 98 Oxygen Delivery Room Air Fraction of Inspired Oxygen 12/04/24 22:00 12/04/24 22:31 12/05/24 00:00 Temperature Pulse Rate 90 90 85 Respiratory Rate 20 Blood Pressure Pulse Oximetry 100 Oxygen Delivery Room Air Fraction of Inspired Oxygen 12/05/24 00:00 12/05/24 00:33 12/05/24 02:00 Temperature 98.8 F Pulse Rate 79 79 70 Respiratory Rate 20 20 Blood Pressure 128/67 Pulse Oximetry 93 93 Oxygen Delivery Room Air Fraction of Inspired Oxygen 12/05/24 04:00 12/05/24 04:07 12/05/24 04:20 Temperature 98.1 F Pulse Rate 74 77 77 Respiratory Rate 18 18 Blood Pressure 131/67 Pulse Oximetry 97 97 Oxygen Delivery Room Air Fraction of Inspired Oxygen 12/05/24 05:20 12/05/24 08:00 12/05/24 08:00 Temperature Pulse Rate 75 97 87 Respiratory Rate 18 Blood Pressure Pulse Oximetry 98 Oxygen Delivery Room Air Fraction of Inspired Oxygen 12/05/24 08:05 12/05/24 10:00 12/05/24 11:40 Temperature 98.2 F 98.3 F Pulse Rate 78 99 93 Respiratory Rate 20 20 Blood Pressure 112/89 122/70 Pulse Oximetry 93 98 Oxygen Delivery Fraction of Inspired Oxygen 12/05/24 12:00 12/05/24 12:00 12/05/24 14:00 Temperature Pulse Rate 93 96 94 Respiratory Rate 20 Blood Pressure Pulse Oximetry 98 Oxygen Delivery Room Air Fraction of Inspired Oxygen 28 Intake/Output Intake/Output: Intake & Output 12/02/24 12/03/24 12/04/24 12/05/24 23:59 23:59 23:59 23:59 Intake Total 4280.8 6664.3 5913.9 2584.3 Output Total 3600 9425 4561 3955 Balance 680.8 -2760.7 1352.9 -1370.7 Meds/Results Medications: Active Medications Generic Name Dose Route Start Last Admin Trade Name Freq PRN Reason Stop Dose Admin Acetaminophen 650 mg 11/29/24 09:42 12/02/24 20:20 Acetaminophen 325 Mg Tablet PO 650 mg Q4H PRN Administration Mild Pain (1-3) or Fever Hydrocodone Bitart/Acetaminophen 1 tab 11/29/24 09:42 12/02/24 20:20 Hydrocodone/Acetaminophen (*Crx) 5-325 Mg Tablet PO 1 tab Q4H PRN Administration Pain Rated 4-6 Dextrose 12.5 gm 11/24/24 08:03 Dextrose 50% 25 Gm/50 Ml Syringe IV PUSH PRN PRN Hypoglycemia Protocol Enoxaparin Sodium 115 mg 11/28/24 21:00 12/02/24 10:07 Enoxaparin 120 Mg/0.8 Ml Syringe SUB-Q Not Given Q12HR TAMICA Glucagon 1 mg 11/24/24 08:03 Glucagon For Inj 1 Mg Vial IM PRN PRN Hypoglycemia Protocol Glucose 15 gm 11/24/24 08:03 Glucose Oral Gel 15 Gm Of Glucse In 37.5 Gm Tube PO PRN PRN Hypoglycemia Protocol Heparin Sodium (Porcine) 7,500 units 12/02/24 16:13 12/03/24 16:07 Heparin Sodium 5,000 Units/Ml Vial IV PUSH 7,500 units PRN PRN Administration aPTT less than 55 seconds Heparin Sodium (Porcine) 3,500 units 12/02/24 16:13 Heparin Sodium 5,000 Units/Ml Vial IV PUSH PRN PRN aPTT 55 - 70 seconds Hydralazine HCl 20 mg 11/30/24 08:04 Hydralazine Hcl 20 Mg/Ml Vial IV PUSH Q4H PRN SBP more than 160 Dextrose 1,000 mls @ 100 mls/hr 11/24/24 08:03 Dextrose 5% 1,000 Ml IVPB PRN PRN Hypoglycemia Protocol Multivitamins 1.25 ml/ 1,002.5 mls @ 70 mls/hr 11/25/24 15:00 12/04/24 16:12 Multivitamins 1.25 ml/ Amino IV CONT 70 mls/hr Acids/Dextrose .[id number] TAMICA Administration Protocol Dextrose 1,000 mls @ 50 mls/hr 11/25/24 14:02 Dextrose 10% IV CONT .Q20H PRN if PN is interrupted Fat Emulsion Intravenous 250 mls @ 20.833 mls/hr 11/25/24 15:00 12/04/24 04:59 Lipids 20% IVPB Infused Q24H TAMICA Infusion Meropenem 1 gm/ Sodium 100 mls @ 200 mls/hr 11/26/24 15:00 12/05/24 06:46 Chloride IVPB 200 mls/hr Q8H TAMICA Administration Heparin Sodium/Dextrose 25,000 units in 250 mls @ 20 mls/hr 12/02/24 16:15 12/05/24 06:59 Heparin Sodium/D5w 100 Units/Ml IV CONT 2,000 units/hr .[id number] TAMICA 20 mls/hr Titration Protocol 2,000 UNITS/HR Insulin Aspart 3 - 6 units 11/24/24 09:00 12/05/24 14:09 Insulin Aspart (*Bkc) 100 Units/Ml SUB-Q Not Given Q4H [facility] Protocol Insulin Glargine 18 units 11/30/24 09:00 12/05/24 09:21 Insulin Glargine (*Bkc) 100 Units/Ml SUB-Q 18 units DAILY TAMICA Administration Ipratropium [place] 0.5 mg 11/30/24 09:51 Ipratropium Br 0.02% Inh Soln 0.5 Mg/2.5 Ml Vial INHALATION Q6HRT PRN Wheezing Levalbuterol HCl 0.63 mg 11/30/24 09:51 Levalbuterol Neb 1.25 Mg/3 Ml INHALATION Q6HRT PRN Wheezing Melatonin 5 mg 11/30/24 19:20 12/04/24 22:57 Melatonin 5 Mg Tablet PO 5 mg HS PRN Administration sleep Miscellaneous Information 1 each 12/06/24 00:01 Please Renew Meropenem 1 Gm. Per [employer] Procedure, It Will Discontinue If Not Renewed XX 01/05/25 00:00 CLARIFY TAMICA Morphine Sulfate 4 mg 11/29/24 09:42 12/05/24 10:32 Morphine Sulfate (*Crx) 4 Mg/Ml Inj IV PUSH 4 mg Q2H PRN Administration Pain Rated 7-10 Pantoprazole Sodium 40 mg 12/02/24 21:00 12/05/24 09:22 Pantoprazole 40 Mg Tablet PO 40 mg Q12HR TAMICA Administration Sodium Chloride 10 ml 11/23/24 14:00 12/05/24 06:46 Central Line Flush IV PUSH 10 ml Q8HR TAMICA Administration Sodium Chloride 10 ml 11/23/24 13:39 Central Line Flush IV PUSH PRN PRN with TPN bag changes Sodium Chloride 20 ml 11/23/24 13:39 12/05/24 06:57 Central Line Flush IV PUSH 20 ml PRN PRN Administration after blood draws Radiology Results: ITS Impressions Chest CTA 11/23/24 05:53 IMPRESSION: 1. Free intraperitoneal air in the upper abdomen. Correlate for recent surgery. In the absence of known surgery this is most likely secondary to bowel perforation. Clinically correlate. 2: No large central pulmonary embolism. Limited evaluation of the secondary and tertiary pulmonary arteries. 3: Small right pleural effusion. Dependent atelectasis. 4: Ascites. Abdomen/Pelvis CT 11/23/24 13:00 IMPRESSION: 1. Increasing free intraperitoneal air 11/22/2024, suspicious for bowel leak. Increasing fluid in the mesentery with ascites involving the perihepatic space. No discrete abscess identified. Consider correlation with contrast-enhanced CT abdomen. 2: Increasing consolidation of the lower lobes which may represent atelectasis or pneumonia. 3: Developing small pleural effusions. Abdomen X-Ray 11/23/24 14:04 IMPRESSION: 1: NG tube tip in the stomach. 2: Bibasilar airspace disease, edema versus pneumonia. Head CT 11/26/24 14:47 Impression: No acute intracranial hemorrhage or suspicious mass effect. Chest/Abdomen/Pelvis CTA 11/26/24 14:58 IMPRESSION: No pulmonary embolus. No aortic dissection. Small bilateral pleural effusions, right greater than left with adjacent consolidation, an interval change from prior. Gallbladder distention with mural thickening and surrounding inflammatory change. Right middle and lower lobe nodules, for which follow-up may be performed once patient is beyond this acute phase. No discrete intraperitoneal air is appreciated. Simple free fluid within the dependent portions of the abdomen. Venous Doppler Study 11/28/24 11:19 IMPRESSION: 1. Deep venous thrombosis of the right subclavian, axillary and brachial veins. Dr. Kam Gongora discussed with the bookkeeping clerks supervisorPhilippe Castaneda at 11/28/2024 11:23 CDT. Chest X-Ray 12/03/24 06:44 IMPRESSION: 1. Persistent small bilateral pleural effusions. Labs Labs: Laboratory Results - last 24 hr 12/04/24 12/04/24 12/05/24 15:43 19:53 01:03 WBC RBC Hgb Hct MCV MCH MCHC RDW Plt Count MPV Immature Gran % (Auto) Neut % (Auto) Lymph % (Auto) [place] % (Auto) Eos % (Auto) Baso % (Auto) Lymph # (Auto) [place] # (Auto) Eos # (Auto) Baso # (Auto) Abs Immat Gran (auto) Absolute Neuts (auto) Absolute Nucleated RBC Nucleated RBC % APTT Sodium Potassium Chloride Carbon Dioxide Anion Gap BUN Creatinine Estim Creat Clear Calc Estimated GFR Glucose POC Capillary Glucose 116 H 172 H 163 H Calcium Phosphorus Magnesium Total Bilirubin AST ALT Alkaline Phosphatase Total Protein Albumin Vancomycin Trough 12/05/24 12/05/24 12/05/24 04:26 06:59 07:01 WBC 11.0 H RBC 2.27 L Hgb 7.1 L Hct 21.6 L MCV 95.2 MCH 31.3 MCHC 32.9 RDW 13.0 Plt Count 371 MPV 9.9 Immature Gran % (Auto) 1.5 H Neut % (Auto) 76.3 H Lymph % (Auto) 13.2 L [place] % (Auto) 7.2 Eos % (Auto) 1.7 Baso % (Auto) 0.1 L Lymph # (Auto) 1.46 [place] # (Auto) 0.8 H Eos # (Auto) 0.2 Baso # (Auto) 0.0 Abs Immat Gran (auto) 0.16 H Absolute Neuts (auto) 8.4 H Absolute Nucleated RBC 0.000 Nucleated RBC % 0.0 APTT 99.3 H Sodium 137 Potassium 2.9 L Chloride 109 H Carbon Dioxide 27 Anion Gap 1 L BUN 13 Creatinine 0.51 L Estim Creat Clear Calc 175 Estimated GFR > 60 Glucose 152 H POC Capillary Glucose 165 H Calcium 7.4 L Phosphorus 2.7 Magnesium 2.1 Total Bilirubin 0.5 AST 32 ALT 46 Alkaline Phosphatase 142 H Total Protein 4.7 L Albumin 2.0 L Vancomycin Trough 14.5 12/05/24 12/05/24 07:34 11:29 WBC RBC Hgb Hct MCV MCH MCHC RDW Plt Count MPV Immature Gran % (Auto) Neut % (Auto) Lymph % (Auto) [place] % (Auto) Eos % (Auto) Baso % (Auto) Lymph # (Auto) [place] # (Auto) Eos # (Auto) Baso # (Auto) Abs Immat Gran (auto) Absolute Neuts (auto) Absolute Nucleated RBC Nucleated RBC % APTT Sodium Potassium Chloride Carbon Dioxide Anion Gap BUN Creatinine Estim Creat Clear Calc Estimated GFR Glucose POC Capillary Glucose 141 H 147 H Calcium Phosphorus Magnesium Total Bilirubin AST ALT Alkaline Phosphatase Total Protein Albumin Vancomycin Trough
--- NOTE | 2024-12-05 15:51 | P.PNIM_ITS ---
Progress Note: A&P Assessment and Plan (1) Acute hypoxic respiratory failure: Code(s): J96.01 - Acute respiratory failure with hypoxia Status: Acute Assessment and Plan: Acute respiratory failure likely related to SIRS/sepsis -11/22: CTA chest: No large central PE, small right pleural effusion, dependent atelectasis, ascites, free intraperitoneal air in the upper abdomen correlate for some recent surgery -patient was significantly tachypneic and initially placed on 10 L nasal cannula -11/23: Intubated in the ICU Remained stable on MV. He was following commands. He was able to be extubated 11/29 Continues to recover and now on room air. Encourage IS use. Bronchodilators available as needed. (2) Septic shock: Code(s): A41.9 - Sepsis, unspecified organism; R65.21 - Severe sepsis with septic shock Status: Acute Assessment and Plan: Patient developed sepsis on POD #3 2nd to bowel leak. He underwent exploratory laparotomy with ileocolic resection for bowel perforation (cecal perforation) with spillage of bowel contents in the abdominal cavity Weaned pressors and stress dose steroids -11/24: Blood culture positive for Eggerthella lenta (1 anaerobic bottle only) -11/24: Sputum cultures negative -11/24: Urine cultures negative Treated with Zosyn (11/20) and micafungin (11/24) 11/26: Zosyn was discontinued, meropenem and vancomycin added 11/26: CT brain no acute intracranial hemorrhage or suspicious mass effect 11/26: Bilateral lower extremity venous Dopplers were negative for DVTs 11/28: Bilateral upper venous Dopplers showed DVT of the right subclavian, axillary and brachial veins. (patient does have a right arm PICC line. Fevers possibly due to DVT and pneumonia Completed micafungin x 7 days. Vancomycin stopped today x 9 days. Meropenem Day 9 (since 11/26) Leukocytosis trending down. Fever curve better. (3) Status post appendectomy: Onset Date: 11/20/24 Code(s): Z90.49 - Acquired absence of other specified parts of digestive tract Status: Acute Assessment and Plan: 11/20: Discussed with surgery, NG tube will be inserted due to abdominal distension 11/23: Exploratory laparotomy with ileocolic resection for bowel perforation (cecal perforation) with spillage of bowel contents in the abdominal cavity 11/24: Wound VAC placed Started on TPN Oral diet started and TPN to be stopped. Dietary to help with supplements. (4) DVT (deep venous thrombosis): Qualifiers: Affected thrombotic vein of extremity: axillary Chronicity: acute DVT location: upper extremity Laterality: right Qualified Code(s): I82.A11 - Acute embolism and thrombosis of right axillary vein Code(s): I82.409 - Acute embolism and thrombosis of unspecified deep veins of unspecified lower extremity Status: Acute Assessment and Plan: Patient having fevers Bilateral upper extremity venous Doppler (11/28) with DVT of the right subclavian, axillary and brachial vein -discuss with surgery regarding therapeutic Lovenox to which the agreeable -11/28: Started patient on therapeutic Lovenox -right PICC line in place Lovenox on hold due to GI bleed switched to heparin gtt. Hgb dropped to 7.1 possibly related to hematoma and oozing from site. Monitor H&H (5) Hyperglycemia: Code(s): R73.9 - Hyperglycemia, unspecified Status: Acute Assessment and Plan: A1c 6.0% in August 2023. The patient's blood glucose was reviewed on 12/05 Hyperglycemia related to stress response and/or steroids and/or TPN Glucose remains well controlled. Continue AccuCheks covering with sliding scale. Hypoglycemia protocol available as needed. Continue Lantus (6) Melena: Code(s): K92.1 - Melena Status: Acute Assessment and Plan: 12/02/2024 having melena. GI consulted. EGD on 12/02: gastritis/duodenitis On oral Protonix. GI okay with anticoagulation and started on heparin gtt. Monitor H&H Plan DVT prophylaxis: heparin gtt Stress ulcer prophylaxis: Protonix Nutrition: TPN, feeding as per General surgery Code Status: Full code Incentive spirometry Subjective Date/time seen: 12/05/24 15:51 Interval history: 54yo male with recent closed right fibular fx (November 2024) who presented to the ED on 11/20 for fever, abdominal pain and diarrhea and found to have a ruptured appendix. He underwent an attempted laparoscopic appendectomy but converted to an open appendectomy on 11/20/24. Patient taken back to the OR for possible bowel perforation on 11/23 showing a 1 mm cecal opening with enteric content in the abdomen. He underwent an ileocolic resection and the wound was left open in anticipation of wound VAC therapy. Patient with melena so EGD performed 12/02 showing gastritis and duodenitis. Assuming care. Chart reviewed. He is feeling alot better. Voiding since Mancini is out. No CP or SOB. Stooling with stool incontinence. Out of bed to the chair yesterday. Wound vac with bright red blood in canister. Wound vac removed and noted to have small hematoma in wound bed. Exam Narrative: AF 98.7 131/70 106 22 100% ra Gen - NARD lying semi-recumbent iin bed Chest - lungs clear anteriorly and in flanks. CV - RRR S1/S2. Tele showing in significant dysrhythmias Abd - Soft, Positive BS. larege open midline abdominal wound with relatively clean wound bed except for small (quarter sized) hematoma right lower area of wound. no active bleeding. no strong odor. no firmness or erythema surrounding wound. Ext - 1+ pedal edema; negative Homans Neuro - Alert and appropriate Psych - Nml mood and affect Skin - Warm and dry Objective Data Vital Signs Vital Signs: Vital Signs - 24 hr 12/04/24 16:00 12/04/24 16:00 12/04/24 18:00 Temperature 98.3 F Pulse Rate 93 89 99 Respiratory Rate 20 16 Blood Pressure 125/79 Pulse Oximetry 100 100 Oxygen Delivery Room Air Fraction of Inspired Oxygen 12/04/24 19:47 12/04/24 20:00 12/04/24 20:33 Temperature 98.4 F Pulse Rate 90 88 Respiratory Rate 20 Blood Pressure 136/69 Pulse Oximetry 100 98 Oxygen Delivery Room Air Fraction of Inspired Oxygen 12/04/24 22:00 12/04/24 22:31 12/05/24 00:00 Temperature Pulse Rate 90 90 85 Respiratory Rate 20 Blood Pressure Pulse Oximetry 100 Oxygen Delivery Room Air Fraction of Inspired Oxygen 12/05/24 00:00 12/05/24 00:33 12/05/24 02:00 Temperature 98.8 F Pulse Rate 79 79 70 Respiratory Rate 20 20 Blood Pressure 128/67 Pulse Oximetry 93 93 Oxygen Delivery Room Air Fraction of Inspired Oxygen 12/05/24 04:00 12/05/24 04:07 12/05/24 04:20 Temperature 98.1 F Pulse Rate 74 77 77 Respiratory Rate 18 18 Blood Pressure 131/67 Pulse Oximetry 97 97 Oxygen Delivery Room Air Fraction of Inspired Oxygen 12/05/24 05:20 12/05/24 08:00 12/05/24 08:00 Temperature Pulse Rate 75 97 87 Respiratory Rate 18 Blood Pressure Pulse Oximetry 98 Oxygen Delivery Room Air Fraction of Inspired Oxygen 12/05/24 08:05 12/05/24 10:00 12/05/24 11:40 Temperature 98.2 F 98.3 F Pulse Rate 78 99 93 Respiratory Rate 20 20 Blood Pressure 112/89 122/70 Pulse Oximetry 93 98 Oxygen Delivery Fraction of Inspired Oxygen 12/05/24 12:00 12/05/24 12:00 12/05/24 14:00 Temperature Pulse Rate 93 96 94 Respiratory Rate 20 Blood Pressure Pulse Oximetry 98 Oxygen Delivery Room Air Fraction of Inspired Oxygen 28 Intake/Output Intake/Output: Intake & Output 12/02/24 12/03/24 12/04/24 12/05/24 23:59 23:59 23:59 23:59 Intake Total 4280.8 6664.3 5913.9 2584.3 Output Total 3600 9425 4561 3955 Balance 680.8 -2760.7 1352.9 -1370.7 Meds/Results Medications: Active Medications Generic Name Dose Route Start Last Admin Trade Name Freq PRN Reason Stop Dose Admin Acetaminophen 650 mg 11/29/24 09:42 12/02/24 20:20 Acetaminophen 325 Mg Tablet PO 650 mg Q4H PRN Administration Mild Pain (1-3) or Fever Hydrocodone Bitart/Acetaminophen 1 tab 11/29/24 09:42 12/02/24 20:20 Hydrocodone/Acetaminophen (*Crx) 5-325 Mg Tablet PO 1 tab Q4H PRN Administration Pain Rated 4-6 Dextrose 12.5 gm 11/24/24 08:03 Dextrose 50% 25 Gm/50 Ml Syringe IV PUSH PRN PRN Hypoglycemia Protocol Enoxaparin Sodium 115 mg 11/28/24 21:00 12/02/24 10:07 Enoxaparin 120 Mg/0.8 Ml Syringe SUB-Q Not Given Q12HR TAMICA Glucagon 1 mg 11/24/24 08:03 Glucagon For Inj 1 Mg Vial IM PRN PRN Hypoglycemia Protocol Glucose 15 gm 11/24/24 08:03 Glucose Oral Gel 15 Gm Of Glucse In 37.5 Gm Tube PO PRN PRN Hypoglycemia Protocol Heparin Sodium (Porcine) 7,500 units 12/02/24 16:13 12/03/24 16:07 Heparin Sodium 5,000 Units/Ml Vial IV PUSH 7,500 units PRN PRN Administration aPTT less than 55 seconds Heparin Sodium (Porcine) 3,500 units 12/02/24 16:13 Heparin Sodium 5,000 Units/Ml Vial IV PUSH PRN PRN aPTT 55 - 70 seconds Hydralazine HCl 20 mg 11/30/24 08:04 Hydralazine Hcl 20 Mg/Ml Vial IV PUSH Q4H PRN SBP more than 160 Dextrose 1,000 mls @ 100 mls/hr 11/24/24 08:03 Dextrose 5% 1,000 Ml IVPB PRN PRN Hypoglycemia Protocol Dextrose 1,000 mls @ 50 mls/hr 11/25/24 14:02 Dextrose 10% IV CONT .Q20H PRN if PN is interrupted Fat Emulsion Intravenous 250 mls @ 20.833 mls/hr 11/25/24 15:00 12/04/24 04:59 Lipids 20% IVPB Infused Q24H TAMICA Infusion Meropenem 1 gm/ Sodium 100 mls @ 200 mls/hr 11/26/24 15:00 12/05/24 06:46 Chloride IVPB 200 mls/hr Q8H TAMICA Administration Heparin Sodium/Dextrose 25,000 units in 250 mls @ 20 mls/hr 12/02/24 16:15 12/05/24 06:59 Heparin Sodium/D5w 100 Units/Ml IV CONT 2,000 units/hr .[id number] TAMICA 20 mls/hr Titration Protocol 2,000 UNITS/HR Insulin Aspart 3 - 6 units 11/24/24 09:00 12/05/24 14:09 Insulin Aspart (*Bkc) 100 Units/Ml SUB-Q Not Given Q4H TAMICA Protocol Insulin Glargine 18 units 11/30/24 09:00 12/05/24 09:21 Insulin Glargine (*Bkc) 100 Units/Ml SUB-Q 18 units DAILY TAMICA Administration Ipratropium [place] 0.5 mg 11/30/24 09:51 Ipratropium Br 0.02% Inh Soln 0.5 Mg/2.5 Ml Vial INHALATION Q6HRT PRN Wheezing Levalbuterol HCl 0.63 mg 11/30/24 09:51 Levalbuterol Neb 1.25 Mg/3 Ml INHALATION Q6HRT PRN Wheezing Melatonin 5 mg 11/30/24 19:20 12/04/24 22:57 Melatonin 5 Mg Tablet PO 5 mg HS PRN Administration sleep Miscellaneous Information 1 each 12/06/24 00:01 Please Renew Meropenem 1 Gm. Per [employer] Procedure, It Will Discontinue If Not Renewed XX 01/05/25 00:00 CLARIFY TAMICA Morphine Sulfate 4 mg 11/29/24 09:42 12/05/24 10:32 Morphine Sulfate (*Crx) 4 Mg/Ml Inj IV PUSH 4 mg Q2H PRN Administration Pain Rated 7-10 Pantoprazole Sodium 40 mg 12/02/24 21:00 12/05/24 09:22 Pantoprazole 40 Mg Tablet PO 40 mg Q12HR TAMICA Administration Sodium Chloride 10 ml 11/23/24 14:00 12/05/24 06:46 Central Line Flush IV PUSH 10 ml Q8HR TAMICA Administration Sodium Chloride 10 ml 11/23/24 13:39 Central Line Flush IV PUSH PRN PRN with TPN bag changes Sodium Chloride 20 ml 11/23/24 13:39 12/05/24 06:57 Central Line Flush IV PUSH 20 ml PRN PRN Administration after blood draws Radiology Results: ITS Impressions Chest CTA 11/23/24 05:53 IMPRESSION: 1. Free intraperitoneal air in the upper abdomen. Correlate for recent surgery. In the absence of known surgery this is most likely secondary to bowel perforation. Clinically correlate. 2: No large central pulmonary embolism. Limited evaluation of the secondary and tertiary pulmonary arteries. 3: Small right pleural effusion. Dependent atelectasis. 4: Ascites. Abdomen/Pelvis CT 11/23/24 13:00 IMPRESSION: 1. Increasing free intraperitoneal air 11/22/2024, suspicious for bowel leak. Increasing fluid in the mesentery with ascites involving the perihepatic space. No discrete abscess identified. Consider correlation with contrast-enhanced CT abdomen. 2: Increasing consolidation of the lower lobes which may represent atelectasis or pneumonia. 3: Developing small pleural effusions. Abdomen X-Ray 11/23/24 14:04 IMPRESSION: 1: NG tube tip in the stomach. 2: Bibasilar airspace disease, edema versus pneumonia. Head CT 11/26/24 14:47 Impression: No acute intracranial hemorrhage or suspicious mass effect. Chest/Abdomen/Pelvis CTA 11/26/24 14:58 IMPRESSION: No pulmonary embolus. No aortic dissection. Small bilateral pleural effusions, right greater than left with adjacent consolidation, an interval change from prior. Gallbladder distention with mural thickening and surrounding inflammatory change. Right middle and lower lobe nodules, for which follow-up may be performed once patient is beyond this acute phase. No discrete intraperitoneal air is appreciated. Simple free fluid within the dependent portions of the abdomen. Venous Doppler Study 11/28/24 11:19 IMPRESSION: 1. Deep venous thrombosis of the right subclavian, axillary and brachial veins. Dr. Kam Gongora discussed with the charting clerk]Kurt Castaneda at 11/28/2024 11:23 CDT. Chest X-Ray 12/03/24 06:44 IMPRESSION: 1. Persistent small bilateral pleural effusions. Labs Labs: Laboratory Results - last 24 hr 12/04/24 12/04/24 12/05/24 15:43 19:53 01:03 WBC RBC Hgb Hct MCV MCH MCHC RDW Plt Count MPV Immature Gran % (Auto) Neut % (Auto) Lymph % (Auto) [place] % (Auto) Eos % (Auto) Baso % (Auto) Lymph # (Auto) [place] # (Auto) Eos # (Auto) Baso # (Auto) Abs Immat Gran (auto) Absolute Neuts (auto) Absolute Nucleated RBC Nucleated RBC % APTT Sodium Potassium Chloride Carbon Dioxide Anion Gap BUN Creatinine Estim Creat Clear Calc Estimated GFR Glucose POC Capillary Glucose 116 H 172 H 163 H Calcium Phosphorus Magnesium Total Bilirubin AST ALT Alkaline Phosphatase Total Protein Albumin Vancomycin Trough 12/05/24 12/05/24 12/05/24 04:26 06:59 07:01 WBC 11.0 H RBC 2.27 L Hgb 7.1 L Hct 21.6 L MCV 95.2 MCH 31.3 MCHC 32.9 RDW 13.0 Plt Count 371 MPV 9.9 Immature Gran % (Auto) 1.5 H Neut % (Auto) 76.3 H Lymph % (Auto) 13.2 L [place] % (Auto) 7.2 Eos % (Auto) 1.7 Baso % (Auto) 0.1 L Lymph # (Auto) 1.46 [place] # (Auto) 0.8 H Eos # (Auto) 0.2 Baso # (Auto) 0.0 Abs Immat Gran (auto) 0.16 H Absolute Neuts (auto) 8.4 H Absolute Nucleated RBC 0.000 Nucleated RBC % 0.0 APTT 99.3 H Sodium 137 Potassium 2.9 L Chloride 109 H Carbon Dioxide 27 Anion Gap 1 L BUN 13 Creatinine 0.51 L Estim Creat Clear Calc 175 Estimated GFR > 60 Glucose 152 H POC Capillary Glucose 165 H Calcium 7.4 L Phosphorus 2.7 Magnesium 2.1 Total Bilirubin 0.5 AST 32 ALT 46 Alkaline Phosphatase 142 H Total Protein 4.7 L Albumin 2.0 L Vancomycin Trough 14.5 12/05/24 12/05/24 12/05/24 07:34 11:29 15:40 WBC RBC Hgb Hct MCV MCH MCHC RDW Plt Count MPV Immature Gran % (Auto) Neut % (Auto) Lymph % (Auto) [place] % (Auto) Eos % (Auto) Baso % (Auto) Lymph # (Auto) [place] # (Auto) Eos # (Auto) Baso # (Auto) Abs Immat Gran (auto) Absolute Neuts (auto) Absolute Nucleated RBC Nucleated RBC % APTT Sodium Potassium Chloride Carbon Dioxide Anion Gap BUN Creatinine Estim Creat Clear Calc Estimated GFR Glucose POC Capillary Glucose 141 H 147 H 159 H Calcium Phosphorus Magnesium Total Bilirubin AST ALT Alkaline Phosphatase Total Protein Albumin Vancomycin Trough
[2024-12-05 18:03] LABS: Hematocrit 24.7 % (42.0-52.0); Hemoglobin 8.3 g/dL (14.0-18.0)
[2024-12-05] MEDS: POTASSIUM CHLORIDE 20 MEQ ER TABLET 40 MEQ PO ×2 (18:33→23:27)
[2024-12-05] MEDS: MELATONIN 5 MG TABLET PO (21:26)
[2024-12-06] VITALS (15 sets, daily range): BP systolic 100–125; BP diastolic 54–67; PULSE 76–110; RESP 16–18; TEMP 36.6–37.1; O2SAT 96–98
[2024-12-06] MEDS: HEPARIN SOD/D5W 100 UNITS/ML 25,000 UNITS/250 ML BAG 20 UNITS IV CONT ×2 (04:11→16:43)
[2024-12-06] MEDS: CENTRAL LINE FLUSH 10 ML IV PUSH ×4 (04:16→22:36)
[2024-12-06 04:23] LABS: Hematocrit 22.2 % (42.0-52.0); Hemoglobin 7.4 g/dL (14.0-18.0); Immature Granulocyte Percent A 1.1 % (0-0.5); Lymphocytes Absolute Auto 2.22 K/mm3 (0.9-3.2); Mean Corpuscular HGB Conc 33.3 g/dl (32-36); Mean Corpuscular Hemoglobin 31.6 pg (26-34); Mean Corpuscular Volume 94.9 fl (80-100); Nucleated Red Blood Cells Absolute Auto 0.000 K/mm3 (0.0-0.012); Nucleated Red Blood Cells Perc 0.0 % (0.0-0.2); Platelet Count Result 399 k/mm3 (150-375); Red Blood Count 2.34 M/mm3 (4.6-6.20); White Blood Count 11.7 K/mm3 (4.5-10.0)
[2024-12-06 04:43] LABS: Partial Thromboplastin Time 96.1 Seconds (22.3-36.8)
[2024-12-06 04:56] LABS: Albumin Level 2.2 g/dL (3.5-5.1); Anion Gap 1 mmol/L (4-12); Blood Urea Nitrogen 12 mg/dL (9-20); Calcium 7.7 mg/dL (8.4-10.2); Carbon Dioxide 28 mmol/L (22-30); Chloride 107 mmol/L (98-107); Estimated CRCL calculation 161 ml/min; Estimated Glomerular Filt Rate > 60; Glucose 92 mg/dL (65-110); Magnesium 2.1 mg/dL (1.6-2.3); Potassium 3.5 mmol/L (3.4-5.0); Sodium 136 mmol/L (137-145)
[2024-12-06] MEDS: ACETAMINOPHEN 325 MG TABLET 650 MG PO (05:30)
[2024-12-06] MEDS: MEROPENEM 1 GM in SODIUM CHLORIDE 0.9% IV 100 ML 200 ML IVPB ×3 (06:08→22:33)
[2024-12-06] MEDS: PANTOPRAZOLE 40 MG TABLET PO ×2 (08:57→20:21)
[2024-12-06] MEDS: MORPHINE SULFATE (*CRX) 4 MG/ML INJ IV PUSH (10:23)
--- NOTE | 2024-12-06 12:14 | PCNFU ---
Nutrition Follow-Up Complete: Altered GI function as related to Perforated Bowel as evidenced by NPO. Goal:Meet estimated nutritional needs. Pt progressing towards goal via PO Pt current nutrition is Low fiber diet. Nutrition recommendation: Add Ensure TID for an additional 350kcals, 20g protein per shake, MAI BID for wound healing Last recorded weight is 116.7 kg. Bowel Motility: +BM 12/05 Labs Reviewed: Hgb:7.4, HCT:22.2, Alb:2.2, Na:136, Cr:0.5 Meds Noted: protonix Skin: wound vac to abdomen Additional Notes: Pt no longer on TPN, started on a low fiber diet, pt reports a great appetite and ate 100% of all meals so far. Ensure added TID and pt consumed. MAI BID to be added for wound healing and pt in agreement. Will monitor weight, labs, skin, diet orders, meds. Follow up in 3 days.
--- NOTE | 2024-12-06 13:27 | PM.PNGS ---
Progress Note: A&P Assessment and Plan (1) Perforated abdominal viscus: Code(s): R19.8 - Other specified symptoms and signs involving the digestive system and abdomen Status: Acute Assessment and Plan: Status post ileocolic resection on 11/23 for perforated cecum postoperatively and sepsis. Wound VAC placed today after wet to dry dressing was in place overnight. Hematoma that was first noticed yesterday appears stable with no active bleeding. Vaseline gauze applied to the area before wound vac placed. Next wound vac change will be Thursday, 12/09. Continue IV antibiotics given his sepsis and fecal peritonitis. WBC 11.7 (day 11 of IV Meropenem). Care coordination planning discharge to [facility] They will start auth closer to time of discharge after wound is reassessed on Thursday. (2) DVT (deep venous thrombosis): Qualifiers: DVT location: upper extremity Affected thrombotic vein of extremity: axillary Chronicity: acute Laterality: right Qualified Code(s): I82.A11 - Acute embolism and thrombosis of right axillary vein Code(s): I82.409 - Acute embolism and thrombosis of unspecified deep veins of unspecified lower extremity Status: Acute Assessment and Plan: Right upper extremity DVT. No longer having bloody stools. He is currently on a heparin infusion. (3) Protein-calorie malnutrition, severe: Code(s): E43 - Unspecified severe protein-calorie malnutrition Status: Acute Assessment and Plan: Patient tolerating a solid diet well. Reportedly eating more than 75% of his meals. TPN stopped yesterday. Albumin 2.2 today, up from 2.0 yesterday. Continue low fiber diet with dietary supplements. (4) Status post appendectomy: Onset Date: 11/20/24 Code(s): Z90.49 - Acquired absence of other specified parts of digestive tract Status: Acute Assessment and Plan: S/p attempted laparoscopic appendectomy, open appendectomy on 11/20. Plan I have discussed the patient's case and plan of care with Dr. Mckeon. Subjective Subjective Date/Time Seen: 12/06/24 13:27 Patient reports: no new complaints Interval history: Patient is doing well today. Up and walking the halls with PT. States less pain with wound vac placement. WBC 11.7. Vital signs stable. Exam GI: Inspection: normal to inspection, abdominal wall ecchymosis (Trocar site bruising), Abdominal wall edema, non-distended, incision (midline abdominal wound vac dressing dry and intact), obesity, no scars, no visible herniation and other (abdomen is mildly distended) Auscultation: normal bowel sounds, Hypoactive bowel sounds present and normoactive bowel sounds Other: Wound VAC placed today. Wet to dry dressing saturated with serosanguineous fluid. No redness around the wound. Abdominal wound fairly unchanged from when seen yesterday. There is undermining more on the right than left. The fascial sutures are visible in the base of the wound with small areas of pink tissue and majority pale yellow slough at the base of the wound, circumferential borders of the wound have pink granulating tissue. Hematoma in the right lower aspect of the wound appears stable with no active bleeding. Perhaps slightly smaller than yesterday. Covered with vaseline gauze dressing before wound vac placement toay. Objective Data Vital Signs Vital Signs: Vital Signs - 24 hr 12/05/24 14:00 12/05/24 16:00 12/05/24 16:00 Temperature Pulse Rate 94 119 H 102 H Respiratory Rate 20 Blood Pressure Pulse Oximetry 98 Oxygen Delivery Room Air 12/05/24 16:02 12/05/24 18:00 12/05/24 20:00 Temperature 98.7 F 98.7 F Pulse Rate 106 H 108 H 103 H Respiratory Rate 22 H 18 Blood Pressure 131/70 123/72 Pulse Oximetry 100 95 Oxygen Delivery 12/05/24 20:00 12/05/24 20:00 12/05/24 22:00 Temperature Pulse Rate 101 H 91 Respiratory Rate Blood Pressure Pulse Oximetry Oxygen Delivery Room Air 12/06/24 00:00 12/06/24 00:00 12/06/24 00:00 Temperature 98.7 F Pulse Rate 89 84 Respiratory Rate 16 Blood Pressure 122/66 Pulse Oximetry 96 Oxygen Delivery Room Air 12/06/24 02:00 12/06/24 04:00 12/06/24 04:00 Temperature 97.8 F Pulse Rate 87 76 Respiratory Rate 16 Blood Pressure 110/67 Pulse Oximetry 98 Oxygen Delivery Room Air 12/06/24 04:00 12/06/24 06:00 12/06/24 07:47 Temperature 98.1 F Pulse Rate 76 80 88 Respiratory Rate 18 Blood Pressure 119/54 L Pulse Oximetry 97 Oxygen Delivery 12/06/24 08:00 12/06/24 08:00 12/06/24 10:00 Temperature Pulse Rate 95 92 Respiratory Rate Blood Pressure Pulse Oximetry Oxygen Delivery Room Air 12/06/24 10:56 12/06/24 12:00 12/06/24 12:00 Temperature 98.4 F Pulse Rate 93 96 Respiratory Rate 18 Blood Pressure 111/61 Pulse Oximetry 96 Oxygen Delivery Room Air Intake/Output Intake/Output: Intake & Output 12/03/24 12/04/24 12/05/24 12/06/24 23:59 23:59 23:59 23:59 Intake Total 6664.3 5913.9 4722.5 2194 Output Total 9425 4561 4255 4050 Balance -2760.7 1352.9 467.5 -1856 Meds/Results Medications: Active Medications Generic Name Dose Route Start Last Admin Trade Name Freq PRN Reason Stop Dose Admin Acetaminophen 650 mg 11/29/24 09:42 12/06/24 05:30 Acetaminophen 325 Mg Tablet PO 650 mg Q4H PRN Administration Mild Pain (1-3) or Fever Hydrocodone Bitart/Acetaminophen 1 tab 11/29/24 09:42 12/02/24 20:20 Hydrocodone/Acetaminophen (*Crx) 5-325 Mg Tablet PO 1 tab Q4H PRN Administration Pain Rated 4-6 Dextrose 12.5 gm 11/24/24 08:03 Dextrose 50% 25 Gm/50 Ml Syringe IV PUSH PRN PRN Hypoglycemia Protocol Glucagon 1 mg 11/24/24 08:03 Glucagon For Inj 1 Mg Vial IM PRN PRN Hypoglycemia Protocol Glucose 15 gm 11/24/24 08:03 Glucose Oral Gel 15 Gm Of Glucse In 37.5 Gm Tube PO PRN PRN Hypoglycemia Protocol Heparin Sodium (Porcine) 7,500 units 12/02/24 16:13 12/03/24 16:07 Heparin Sodium 5,000 Units/Ml Vial IV PUSH 7,500 units PRN PRN Administration aPTT less than 55 seconds Heparin Sodium (Porcine) 3,500 units 12/02/24 16:13 Heparin Sodium 5,000 Units/Ml Vial IV PUSH PRN PRN aPTT 55 - 70 seconds Hydralazine HCl 20 mg 11/30/24 08:04 Hydralazine Hcl 20 Mg/Ml Vial IV PUSH Q4H PRN SBP more than 160 Dextrose 1,000 mls @ 100 mls/hr 11/24/24 08:03 Dextrose 5% 1,000 Ml IVPB PRN PRN Hypoglycemia Protocol Fat Emulsion Intravenous 250 mls @ 20.833 mls/hr 11/25/24 15:00 12/04/24 04:59 Lipids 20% IVPB Infused Q24H TAMICA Infusion Meropenem 1 gm/ Sodium 100 mls @ 200 mls/hr 11/26/24 15:00 12/06/24 06:08 Chloride IVPB 200 mls/hr Q8H ATMICA Administration Heparin Sodium/Dextrose 25,000 units in 250 mls @ 20 mls/hr 12/02/24 16:15 12/06/24 04:11 Heparin Sodium/D5w 100 Units/Ml IV CONT 2,000 units/hr .[id number] TAMICA 20 mls/hr Administration Protocol 2,000 UNITS/HR Ipratropium [place] 0.5 mg 11/30/24 09:51 Ipratropium Br 0.02% Inh Soln 0.5 Mg/2.5 Ml Vial INHALATION Q6HRT PRN Wheezing Levalbuterol HCl 0.63 mg 11/30/24 09:51 Levalbuterol Neb 1.25 Mg/3 Ml INHALATION Q6HRT PRN Wheezing Melatonin 5 mg 11/30/24 19:20 12/05/24 21:26 Melatonin 5 Mg Tablet PO 5 mg HS PRN Administration sleep Morphine Sulfate 4 mg 11/29/24 09:42 12/06/24 10:23 Morphine Sulfate (*Crx) 4 Mg/Ml Inj IV PUSH 4 mg Q2H PRN Administration Pain Rated 7-10 Pantoprazole Sodium 40 mg 12/02/24 21:00 12/06/24 08:57 Pantoprazole 40 Mg Tablet PO 40 mg Q12HR TAMICA Administration Sodium Chloride 10 ml 11/23/24 14:00 12/06/24 04:16 Central Line Flush IV PUSH 10 ml Q8HR TAMICA Administration Sodium Chloride 10 ml 11/23/24 13:39 Central Line Flush IV PUSH PRN PRN with TPN bag changes Sodium Chloride 20 ml 11/23/24 13:39 12/05/24 06:57 Central Line Flush IV PUSH 20 ml PRN PRN Administration after blood draws Radiology Results: ITS Impressions Chest CTA 11/23/24 05:53 IMPRESSION: 1. Free intraperitoneal air in the upper abdomen. Correlate for recent surgery. In the absence of known surgery this is most likely secondary to bowel perforation. Clinically correlate. 2: No large central pulmonary embolism. Limited evaluation of the secondary and tertiary pulmonary arteries. 3: Small right pleural effusion. Dependent atelectasis. 4: Ascites. Abdomen/Pelvis CT 11/23/24 13:00 IMPRESSION: 1. Increasing free intraperitoneal air 11/22/2024, suspicious for bowel leak. Increasing fluid in the mesentery with ascites involving the perihepatic space. No discrete abscess identified. Consider correlation with contrast-enhanced CT abdomen. 2: Increasing consolidation of the lower lobes which may represent atelectasis or pneumonia. 3: Developing small pleural effusions. Abdomen X-Ray 11/23/24 14:04 IMPRESSION: 1: NG tube tip in the stomach. 2: Bibasilar airspace disease, edema versus pneumonia. Head CT 11/26/24 14:47 Impression: No acute intracranial hemorrhage or suspicious mass effect. Chest/Abdomen/Pelvis CTA 11/26/24 14:58 IMPRESSION: No pulmonary embolus. No aortic dissection. Small bilateral pleural effusions, right greater than left with adjacent consolidation, an interval change from prior. Gallbladder distention with mural thickening and surrounding inflammatory change. Right middle and lower lobe nodules, for which follow-up may be performed once patient is beyond this acute phase. No discrete intraperitoneal air is appreciated. Simple free fluid within the dependent portions of the abdomen. Venous Doppler Study 11/28/24 11:19 IMPRESSION: 1. Deep venous thrombosis of the right subclavian, axillary and brachial veins. Dr. Kam Gongora discussed with the flat sorting machine clerk]Kurt Castaneda at 11/28/2024 11:23 CDT. Chest X-Ray 12/03/24 06:44 IMPRESSION: 1. Persistent small bilateral pleural effusions. Labs Labs: Laboratory Results - last 24 hr 12/05/24 12/05/24 12/05/24 15:40 17:45 20:17 WBC RBC Hgb 8.3 L Hct 24.7 L MCV MCH MCHC RDW Plt Count MPV Immature Gran % (Auto) Neut % (Auto) Lymph % (Auto) [place] % (Auto) Eos % (Auto) Baso % (Auto) Lymph # (Auto) [place] # (Auto) Eos # (Auto) Baso # (Auto) Abs Immat Gran (auto) Absolute Neuts (auto) Absolute Nucleated RBC Nucleated RBC % APTT Sodium Potassium Chloride Carbon Dioxide Anion Gap BUN Creatinine Estim Creat Clear Calc Estimated GFR Glucose POC Capillary Glucose 159 H 91 Calcium Phosphorus Magnesium Albumin 12/06/24 04:09 WBC 11.7 H RBC 2.34 L Hgb 7.4 L Hct 22.2 L MCV 94.9 MCH 31.6 MCHC 33.3 RDW 13.0 Plt Count 399 H MPV 9.8 Immature Gran % (Auto) 1.1 H Neut % (Auto) 71.2 Lymph % (Auto) 19.1 [place] % (Auto) 6.9 Eos % (Auto) 1.5 Baso % (Auto) 0.2 Lymph # (Auto) 2.22 [place] # (Auto) 0.8 H Eos # (Auto) 0.2 Baso # (Auto) 0.0 Abs Immat Gran (auto) 0.13 H Absolute Neuts (auto) 8.3 H Absolute Nucleated RBC 0.000 Nucleated RBC % 0.0 APTT 96.1 H Sodium 136 L Potassium 3.5 Chloride 107 Carbon Dioxide 28 Anion Gap 1 L BUN 12 Creatinine 0.56 L Estim Creat Clear Calc 161 Estimated GFR > 60 Glucose 92 POC Capillary Glucose Calcium 7.7 L Phosphorus 3.1 Magnesium 2.1 Albumin 2.2 L
--- NOTE | 2024-12-06 15:48 | P.PNIM_ITS ---
Progress Note: A&P Assessment and Plan (1) Acute hypoxic respiratory failure: Code(s): J96.01 - Acute respiratory failure with hypoxia Status: Acute Assessment and Plan: Acute respiratory failure likely related to SIRS/sepsis -11/22: CTA chest: No large central PE, small right pleural effusion, dependent atelectasis, ascites, free intraperitoneal air in the upper abdomen correlate for some recent surgery -patient was significantly tachypneic and initially placed on 10 L nasal cannula -11/23: Intubated in the ICU Remained stable on MV. He was following commands. He was able to be extubated 11/29 Continues to recover and now on room air. Encourage IS use. Bronchodilators available as needed. (2) Septic shock: Code(s): A41.9 - Sepsis, unspecified organism; R65.21 - Severe sepsis with septic shock Status: Acute Assessment and Plan: Patient developed sepsis on POD #3 2nd to bowel leak. He underwent exploratory laparotomy with ileocolic resection for bowel perforation (cecal perforation) with spillage of bowel contents in the abdominal cavity Weaned pressors and stress dose steroids -11/24: Blood culture positive for Eggerthella lenta (1 anaerobic bottle only) -11/24: Sputum cultures negative -11/24: Urine cultures negative Treated with Zosyn (11/20) and micafungin (11/24) 11/26: Zosyn was discontinued; Meropenem and vancomycin added 11/26: CT brain no acute intracranial hemorrhage or suspicious mass effect 11/26: Bilateral lower extremity venous Dopplers were negative for DVTs 11/28: Bilateral upper venous Dopplers showed DVT of the right subclavian, axillary and brachial veins. (patient does have a right arm PICC line. Fevers possibly due to DVT and pneumonia Completed micafungin x 7 days. Vancomycin stopped x 9 days (last dose 12/05). Remains on Meropenem (since 11/26) Leukocytosis about the same. Fevers resolved. Monitor (3) Status post appendectomy: Onset Date: 11/20/24 Code(s): Z90.49 - Acquired absence of other specified parts of digestive tract Status: Acute Assessment and Plan: 11/20: NG tube inserted due to abdominal distension. Patient underwent attempted laparoscopic appendectomy but converted to an open appendectomy 11/23: Exploratory laparotomy with ileocolic resection for bowel perforation (cecal perforation) with spillage of bowel contents in the abdominal cavity 11/24: Wound VAC placed Started on TPN Oral diet started and TPN stopped. Dietary to help with supplements. (4) DVT (deep venous thrombosis): Qualifiers: Affected thrombotic vein of extremity: axillary Chronicity: acute DVT location: upper extremity Laterality: right Qualified Code(s): I82.A11 - Acute embolism and thrombosis of right axillary vein Code(s): I82.409 - Acute embolism and thrombosis of unspecified deep veins of unspecified lower extremity Status: Acute Assessment and Plan: Patient having fevers Bilateral upper extremity venous Doppler (11/28) with DVT of the right subclavian, axillary and brachial vein -discuss with surgery regarding therapeutic Lovenox to which the agreeable -11/28: Started patient on therapeutic Lovenox -right PICC line in place Lovenox on hold due to GI bleed but ultimately switched to heparin gtt. Hgb low but stable in the 7-8 range possibly related to hematoma and oozing from site. Monitor H&H. Change to Eliquis when close to discharge. (5) Hyperglycemia: Code(s): R73.9 - Hyperglycemia, unspecified Status: Acute Assessment and Plan: A1c 6.0% in August 2023. The patient's blood glucose was reviewed on 12/06 Hyperglycemia related to stress response and/or steroids and/or TPN TPN stopped and diet started. Lantus was stopped 12/05 Glucose reasonably well controlled. Continue AccuCheks covering with sliding scale. Hypoglycemia protocol available as needed. monitor off lantus (6) Melena: Code(s): K92.1 - Melena Status: Acute Assessment and Plan: 12/02/2024 having melena. GI consulted. EGD on 12/02: gastritis/duodenitis On oral Protonix. GI okay with anticoagulation and started on heparin gtt. Monitor H&H Plan DVT prophylaxis: heparin gtt Stress ulcer prophylaxis: Protonix Code Status: Full code Incentive spirometry Subjective Date/time seen: 12/06/24 15:48 Interval history: 54yo male with recent closed right fibular fx (November 2024) who presented to the ED on 11/20 for fever, abdominal pain and diarrhea and found to have a ruptured appendix. He underwent an attempted laparoscopic appendectomy but converted to an open appendectomy on 11/20/24. Patient taken back to the OR for possible bowel perforation on 11/23 showing a 1 mm cecal opening with enteric content in the abdomen. He underwent an ileocolic resection and the wound was left open in anticipation of wound VAC therapy. Patient with melena so EGD performed 12/02 showing gastritis and duodenitis. Walknig in halls. Pain controlled. No CP or SOB. Tolerating oral intake. Stooling. Exam Narrative: AF 98.4 125/63 108 18 96% ra Gen - NARD sitting up in chair Chest - right base crackles o/w clear. nml RR CV - RRR S1/S2. Tele showing in significant dysrhythmias Abd - Soft, Positive BS. Wound vac in place with blood tinged serous fluid in canister. Ext - 1+ pedal edema; LLE compression hose in place. Right LE in brace Neuro - Alert and appropriate Psych - Nml mood and affect Skin - Warm and dry Objective Data Vital Signs Vital Signs: Vital Signs - 24 hr 12/05/24 16:00 12/05/24 16:00 12/05/24 16:02 Temperature 98.7 F Pulse Rate 119 H 102 H 106 H Respiratory Rate 20 22 H Blood Pressure 131/70 Pulse Oximetry 98 100 Oxygen Delivery Room Air 12/05/24 18:00 12/05/24 20:00 12/05/24 20:00 Temperature 98.7 F Pulse Rate 108 H 103 H Respiratory Rate 18 Blood Pressure 123/72 Pulse Oximetry 95 Oxygen Delivery Room Air 12/05/24 20:00 12/05/24 22:00 12/06/24 00:00 Temperature 98.7 F Pulse Rate 101 H 91 89 Respiratory Rate 16 Blood Pressure 122/66 Pulse Oximetry 96 Oxygen Delivery 12/06/24 00:00 12/06/24 00:00 12/06/24 02:00 Temperature Pulse Rate 84 87 Respiratory Rate Blood Pressure Pulse Oximetry Oxygen Delivery Room Air 12/06/24 04:00 12/06/24 04:00 12/06/24 04:00 Temperature 97.8 F Pulse Rate 76 76 Respiratory Rate 16 Blood Pressure 110/67 Pulse Oximetry 98 Oxygen Delivery Room Air 12/06/24 06:00 12/06/24 07:47 12/06/24 08:00 Temperature 98.1 F Pulse Rate 80 88 Respiratory Rate 18 Blood Pressure 119/54 L Pulse Oximetry 97 Oxygen Delivery Room Air 12/06/24 08:00 12/06/24 10:00 12/06/24 10:56 Temperature 98.4 F Pulse Rate 95 92 93 Respiratory Rate 18 Blood Pressure 111/61 Pulse Oximetry 96 Oxygen Delivery 12/06/24 12:00 12/06/24 12:00 Temperature Pulse Rate 96 Respiratory Rate Blood Pressure Pulse Oximetry Oxygen Delivery Room Air Intake/Output Intake/Output: Intake & Output 12/03/24 12/04/24 12/05/24 12/06/24 23:59 23:59 23:59 23:59 Intake Total 6664.3 5913.9 4722.5 2294 Output Total 9476 4561 4255 4700 Balance -2760.7 1352.9 467.5 -2406 Meds/Results Medications: Active Medications Generic Name Dose Route Start Last Admin Trade Name Freq PRN Reason Stop Dose Admin Acetaminophen 650 mg 11/29/24 09:42 12/06/24 05:30 Acetaminophen 325 Mg Tablet PO 650 mg Q4H PRN Administration Mild Pain (1-3) or Fever Hydrocodone Bitart/Acetaminophen 1 tab 11/29/24 09:42 12/02/24 20:20 Hydrocodone/Acetaminophen (*Crx) 5-325 Mg Tablet PO 1 tab Q4H PRN Administration Pain Rated 4-6 Dextrose 12.5 gm 11/24/24 08:03 Dextrose 50% 25 Gm/50 Ml Syringe IV PUSH PRN PRN Hypoglycemia Protocol Glucagon 1 mg 11/24/24 08:03 Glucagon For Inj 1 Mg Vial IM PRN PRN Hypoglycemia Protocol Glucose 15 gm 11/24/24 08:03 Glucose Oral Gel 15 Gm Of Glucse In 37.5 Gm Tube PO PRN PRN Hypoglycemia Protocol Heparin Sodium (Porcine) 7,500 units 12/02/24 16:13 12/03/24 16:07 Heparin Sodium 5,000 Units/Ml Vial IV PUSH 7,500 units PRN PRN Administration aPTT less than 55 seconds Heparin Sodium (Porcine) 3,500 units 12/02/24 16:13 Heparin Sodium 5,000 Units/Ml Vial IV PUSH PRN PRN aPTT 55 - 70 seconds Hydralazine HCl 20 mg 11/30/24 08:04 Hydralazine Hcl 20 Mg/Ml Vial IV PUSH Q4H PRN SBP more than 160 Dextrose 1,000 mls @ 100 mls/hr 11/24/24 08:03 Dextrose 5% 1,000 Ml IVPB PRN PRN Hypoglycemia Protocol Fat Emulsion Intravenous 250 mls @ 20.833 mls/hr 11/25/24 15:00 12/04/24 04:59 Lipids 20% IVPB Infused Q24H TAMICA Infusion Meropenem 1 gm/ Sodium 100 mls @ 200 mls/hr 11/26/24 15:00 12/06/24 15:07 Chloride IVPB 200 mls/hr Q8H TAMICA Administration Heparin Sodium/Dextrose 25,000 units in 250 mls @ 20 mls/hr 12/02/24 16:15 12/06/24 04:11 Heparin Sodium/D5w 100 Units/Ml IV CONT 2,000 units/hr .[id number] TAMICA 20 mls/hr Administration Protocol 2,000 UNITS/HR Ipratropium [place] 0.5 mg 11/30/24 09:51 Ipratropium Br 0.02% Inh Soln 0.5 Mg/2.5 Ml Vial INHALATION Q6HRT PRN Wheezing Levalbuterol HCl 0.63 mg 11/30/24 09:51 Levalbuterol Neb 1.25 Mg/3 Ml INHALATION Q6HRT PRN Wheezing Melatonin 5 mg 11/30/24 19:20 12/05/24 21:26 Melatonin 5 Mg Tablet PO 5 mg HS PRN Administration sleep Morphine Sulfate 4 mg 11/29/24 09:42 12/06/24 10:23 Morphine Sulfate (*Crx) 4 Mg/Ml Inj IV PUSH 4 mg Q2H PRN Administration Pain Rated 7-10 Pantoprazole Sodium 40 mg 12/02/24 21:00 12/06/24 08:57 Pantoprazole 40 Mg Tablet PO 40 mg Q12HR TAMICA Administration Sodium Chloride 10 ml 11/23/24 14:00 12/06/24 15:22 Central Line Flush IV PUSH 10 ml Q8HR TAMICA Administration Sodium Chloride 10 ml 11/23/24 13:39 Central Line Flush IV PUSH PRN PRN with TPN bag changes Sodium Chloride 20 ml 11/23/24 13:39 12/05/24 06:57 Central Line Flush IV PUSH 20 ml PRN PRN Administration after blood draws Radiology Results: ITS Impressions Chest CTA 11/23/24 05:53 IMPRESSION: 1. Free intraperitoneal air in the upper abdomen. Correlate for recent surgery. In the absence of known surgery this is most likely secondary to bowel perforation. Clinically correlate. 2: No large central pulmonary embolism. Limited evaluation of the secondary and tertiary pulmonary arteries. 3: Small right pleural effusion. Dependent atelectasis. 4: Ascites. Abdomen/Pelvis CT 11/23/24 13:00 IMPRESSION: 1. Increasing free intraperitoneal air 11/22/2024, suspicious for bowel leak. Increasing fluid in the mesentery with ascites involving the perihepatic space. No discrete abscess identified. Consider correlation with contrast-enhanced CT abdomen. 2: Increasing consolidation of the lower lobes which may represent atelectasis or pneumonia. 3: Developing small pleural effusions. Abdomen X-Ray 11/23/24 14:04 IMPRESSION: 1: NG tube tip in the stomach. 2: Bibasilar airspace disease, edema versus pneumonia. Head CT 11/26/24 14:47 Impression: No acute intracranial hemorrhage or suspicious mass effect. Chest/Abdomen/Pelvis CTA 11/26/24 14:58 IMPRESSION: No pulmonary embolus. No aortic dissection. Small bilateral pleural effusions, right greater than left with adjacent consolidation, an interval change from prior. Gallbladder distention with mural thickening and surrounding inflammatory change. Right middle and lower lobe nodules, for which follow-up may be performed once patient is beyond this acute phase. No discrete intraperitoneal air is appreciated. Simple free fluid within the dependent portions of the abdomen. Venous Doppler Study 11/28/24 11:19 IMPRESSION: 1. Deep venous thrombosis of the right subclavian, axillary and brachial veins. Dr. Kam Gongora discussed with the postal clerk]Kurt Castaneda at 11/28/2024 11:23 CDT. Chest X-Ray 12/03/24 06:44 IMPRESSION: 1. Persistent small bilateral pleural effusions. Labs Labs: Laboratory Results - last 24 hr 12/05/24 12/05/24 12/06/24 17:45 20:17 04:09 WBC 11.7 H RBC 2.34 L Hgb 8.3 L 7.4 L Hct 24.7 L 22.2 L MCV 94.9 MCH 31.6 MCHC 33.3 RDW 13.0 Plt Count 399 H MPV 9.8 Immature Gran % (Auto) 1.1 H Neut % (Auto) 71.2 Lymph % (Auto) 19.1 [place] % (Auto) 6.9 Eos % (Auto) 1.5 Baso % (Auto) 0.2 Lymph # (Auto) 2.22 [place] # (Auto) 0.8 H Eos # (Auto) 0.2 Baso # (Auto) 0.0 Abs Immat Gran (auto) 0.13 H Absolute Neuts (auto) 8.3 H Absolute Nucleated RBC 0.000 Nucleated RBC % 0.0 APTT 96.1 H Sodium 136 L Potassium 3.5 Chloride 107 Carbon Dioxide 28 Anion Gap 1 L BUN 12 Creatinine 0.56 L Estim Creat Clear Calc 161 Estimated GFR > 60 Glucose 92 POC Capillary Glucose 91 Calcium 7.7 L Phosphorus 3.1 Magnesium 2.1 Albumin 2.2 L
[2024-12-06] MEDS: HYDROcodone/acetaminophen (*CRX) 5-325 MG TABLET 1 TAB PO ×2 (16:44→22:32)
[2024-12-06] MEDS: MELATONIN 5 MG TABLET PO (20:21)
[2024-12-07] VITALS (9 sets, daily range): BP systolic 100–121; BP diastolic 51–73; PULSE 68–123; RESP 16–24; TEMP 36.6–37.2; O2SAT 93–97
[2024-12-07] MEDS: HEPARIN SOD/D5W 100 UNITS/ML 25,000 UNITS/250 ML BAG 20 UNITS IV CONT (05:46)
[2024-12-07] MEDS: MEROPENEM 1 GM in SODIUM CHLORIDE 0.9% IV 100 ML 200 ML IVPB (06:08)
[2024-12-07] MEDS: CENTRAL LINE FLUSH 10 ML IV PUSH ×3 (06:09→21:35)
--- NOTE | 2024-12-07 08:34 | PM.IMPN ---
Progress Note: A&P Assessment and Plan (1) Acute hypoxic respiratory failure: Code(s): J96.01 - Acute respiratory failure with hypoxia Status: Acute Assessment and Plan: Acute respiratory failure likely related to SIRS/sepsis -11/22: CTA chest: No large central PE, small right pleural effusion, dependent atelectasis, ascites, free intraperitoneal air in the upper abdomen correlate for some recent surgery -patient was significantly tachypneic and initially placed on 10 L nasal cannula -11/23: Intubated in the ICU Remained stable on MV. He was following commands. He was able to be extubated 11/29 Continues to recover and now on room air. Encourage IS use. Bronchodilators available as needed. (2) Septic shock: Code(s): A41.9 - Sepsis, unspecified organism; R65.21 - Severe sepsis with septic shock Status: Acute Assessment and Plan: Patient developed sepsis on POD #3 2nd to bowel leak. He underwent exploratory laparotomy with ileocolic resection for bowel perforation (cecal perforation) with spillage of bowel contents in the abdominal cavity Weaned pressors and stress dose steroids -11/24: Blood culture positive for Eggerthella lenta (1 anaerobic bottle only) -11/24: Sputum cultures negative -11/24: Urine cultures negative Treated with Zosyn (11/20) and micafungin (11/24) 11/26: Zosyn was discontinued; Meropenem and vancomycin added 11/26: CT brain no acute intracranial hemorrhage or suspicious mass effect 11/26: Bilateral lower extremity venous Dopplers were negative for DVTs 11/28: Bilateral upper venous Dopplers showed DVT of the right subclavian, axillary and brachial veins. (patient does have a right arm PICC line. Fevers possibly due to DVT and pneumonia Completed micafungin x 7 days. Vancomycin stopped x 9 days (last dose 12/05). Remains on Meropenem (since 11/26) Leukocytosis slowly improving Fevers resolved. Monitor Tentative meropenem plan to continue for 2 weeks total. Per General surgery (3) Status post appendectomy: Onset Date: 11/20/24 Code(s): Z90.49 - Acquired absence of other specified parts of digestive tract Status: Acute Assessment and Plan: 11/20: NG tube inserted due to abdominal distension. Patient underwent attempted laparoscopic appendectomy but converted to an open appendectomy 11/23: Exploratory laparotomy with ileocolic resection for bowel perforation (cecal perforation) with spillage of bowel contents in the abdominal cavity 11/24: Wound VAC placed Started on TPN Oral diet started and TPN stopped. Dietary to help with supplements. (4) DVT (deep venous thrombosis): Qualifiers: DVT location: upper extremity Affected thrombotic vein of extremity: axillary Chronicity: acute Laterality: right Qualified Code(s): I82.A11 - Acute embolism and thrombosis of right axillary vein Code(s): I82.409 - Acute embolism and thrombosis of unspecified deep veins of unspecified lower extremity Status: Acute Assessment and Plan: Patient having fevers Bilateral upper extremity venous Doppler (11/28) with DVT of the right subclavian, axillary and brachial vein -discuss with surgery regarding therapeutic Lovenox to which the agreeable -11/28: Started patient on therapeutic Lovenox -right PICC line in place Lovenox on hold due to GI bleed but ultimately switched to heparin gtt. Hgb low but stable in the 7-8 range possibly related to hematoma and oozing from site. Monitor H&H. Change to Eliquis when close to discharge. Will check with care coordination any coverage issue with oral anticoagulation (5) Hyperglycemia: Code(s): R73.9 - Hyperglycemia, unspecified Status: Acute Assessment and Plan: A1c 6.0% in August 2023. The patient's blood glucose was reviewed on 12/06 Hyperglycemia related to stress response and/or steroids and/or TPN TPN stopped and diet started. Lantus was stopped 12/05 Glucose reasonably well controlled. Continue AccuCheks covering with sliding scale. Hypoglycemia protocol available as needed. monitor off lantus (6) Melena: Code(s): K92.1 - Melena Status: Acute Assessment and Plan: 12/02/2024 having melena. GI consulted. EGD on 12/02: gastritis/duodenitis On oral Protonix. GI okay with anticoagulation and started on heparin gtt. Monitor H&H No further melena Plan DVT prophylaxis: heparin gtt. Will switch to oral anticoagulation. General surgery okay with oral anticoagulation Stress ulcer prophylaxis: Protonix Code Status: Full code Incentive spirometry Subjective Date/time seen: 12/07/24 08:34 Interval history: No overnight events. Remains afebrile. Working with therapy. Pain is controlled. Breathing better. Bowel movement reported to be brown. Labs reviewed. Review of Systems Review of Systems: All systems reviewed & are unremarkable except as noted in HPI and below Exam Narrative: Gen - NARD sitting up in chair Chest - right base crackles o/w clear. nml RR CV - RRR S1/S2. Tele showing in significant dysrhythmias Abd - Soft, Positive BS. Wound vac in place with blood tinged serous fluid in canister. Ext - 1+ pedal edema; LLE compression hose in place. Right LE in brace Neuro - Alert and appropriate Psych - Nml mood and affect Skin - Warm and dry Objective Data Vital Signs Vital Signs: Vital Signs - 24 hr 12/06/24 10:00 12/06/24 10:56 12/06/24 12:00 Temperature 98.4 F Pulse Rate 92 93 Respiratory Rate 18 Blood Pressure 111/61 Pulse Oximetry 96 Oxygen Delivery Room Air 12/06/24 12:00 12/06/24 14:00 12/06/24 15:59 Temperature Pulse Rate 96 98 108 H Respiratory Rate 18 Blood Pressure 125/63 Pulse Oximetry 96 Oxygen Delivery 12/06/24 16:00 12/06/24 16:00 12/06/24 18:00 Temperature Pulse Rate 110 H 109 H Respiratory Rate Blood Pressure Pulse Oximetry Oxygen Delivery Room Air 12/06/24 20:00 12/06/24 20:00 12/06/24 20:00 Temperature 98.4 F Pulse Rate 108 H 107 H Respiratory Rate 16 Blood Pressure 100/60 Pulse Oximetry 96 Oxygen Delivery Room Air 12/06/24 22:00 12/07/24 00:00 12/07/24 00:00 Temperature 98.3 F Pulse Rate 85 85 Respiratory Rate 18 Blood Pressure 111/71 Pulse Oximetry 97 Oxygen Delivery Room Air 12/07/24 00:00 12/07/24 02:00 12/07/24 04:00 Temperature 97.8 F Pulse Rate 87 68 76 Respiratory Rate 16 Blood Pressure 115/59 L Pulse Oximetry 97 Oxygen Delivery 12/07/24 04:00 12/07/24 04:00 12/07/24 06:00 Temperature Pulse Rate 78 89 Respiratory Rate Blood Pressure Pulse Oximetry Oxygen Delivery Room Air 12/07/24 07:59 Temperature 98.4 F Pulse Rate 101 H Respiratory Rate 20 Blood Pressure 121/73 Pulse Oximetry 97 Oxygen Delivery Intake/Output Intake/Output: Intake & Output 12/04/24 12/05/24 12/06/24 12/07/24 23:59 23:59 23:59 23:59 Intake Total 5913.9 4722.5 2984 1450 Output Total 4561 4255 5200 1350 Balance 1352.9 467.5 -2216 100 Meds/Results Medications: Active Medications Generic Name Dose Route Start Last Admin Trade Name Freq PRN Reason Stop Dose Admin Acetaminophen 650 mg 11/29/24 09:42 12/06/24 05:30 Acetaminophen 325 Mg Tablet PO 650 mg Q4H PRN Administration Mild Pain (1-3) or Fever Hydrocodone Bitart/Acetaminophen 1 tab 11/29/24 09:42 12/06/24 22:32 Hydrocodone/Acetaminophen (*Crx) 5-325 Mg Tablet PO 1 tab Q4H PRN Administration Pain Rated 4-6 Dextrose 12.5 gm 11/24/24 08:03 Dextrose 50% 25 Gm/50 Ml Syringe IV PUSH PRN PRN Hypoglycemia Protocol Glucagon 1 mg 11/24/24 08:03 Glucagon For Inj 1 Mg Vial IM PRN PRN Hypoglycemia Protocol Glucose 15 gm 11/24/24 08:03 Glucose Oral Gel 15 Gm Of Glucse In 37.5 Gm Tube PO PRN PRN Hypoglycemia Protocol Hydralazine HCl 20 mg 11/30/24 08:04 Hydralazine Hcl 20 Mg/Ml Vial IV PUSH Q4H PRN SBP more than 160 Dextrose 1,000 mls @ 100 mls/hr 11/24/24 08:03 Dextrose 5% 1,000 Ml IVPB PRN PRN Hypoglycemia Protocol Meropenem 1 gm/ Sodium 100 mls @ 200 mls/hr 11/26/24 15:00 12/07/24 06:08 Chloride IVPB 200 mls/hr Q8H TAMICA Administration Ipratropium [place] 0.5 mg 11/30/24 09:51 Ipratropium Br 0.02% Inh Soln 0.5 Mg/2.5 Ml Vial INHALATION Q6HRT PRN Wheezing Levalbuterol HCl 0.63 mg 11/30/24 09:51 Levalbuterol Neb 1.25 Mg/3 Ml INHALATION Q6HRT PRN Wheezing Melatonin 5 mg 11/30/24 19:20 08/05/25 20:21 Melatonin 5 Mg Tablet PO 5 mg HS PRN Administration sleep Morphine Sulfate 4 mg 11/29/24 09:42 12/06/24 10:23 Morphine Sulfate (*Crx) 4 Mg/Ml Inj IV PUSH 4 mg Q2H PRN Administration Pain Rated 7-10 Pantoprazole Sodium 40 mg 12/02/24 21:00 12/06/24 20:21 Pantoprazole 40 Mg Tablet PO 40 mg Q12HR TAMICA Administration Sodium Chloride 10 ml 11/23/24 14:00 12/07/24 06:09 Central Line Flush IV PUSH 10 ml Q8HR TAMICA Administration Sodium Chloride 10 ml 11/23/24 13:39 Central Line Flush IV PUSH PRN PRN with TPN bag changes Sodium Chloride 20 ml 11/23/24 13:39 12/05/24 06:57 Central Line Flush IV PUSH 20 ml PRN PRN Administration after blood draws Radiology Results: ITS Impressions Chest CTA 11/23/24 05:53 IMPRESSION: 1. Free intraperitoneal air in the upper abdomen. Correlate for recent surgery. In the absence of known surgery this is most likely secondary to bowel perforation. Clinically correlate. 2: No large central pulmonary embolism. Limited evaluation of the secondary and tertiary pulmonary arteries. 3: Small right pleural effusion. Dependent atelectasis. 4: Ascites. Abdomen/Pelvis CT 11/23/24 13:00 IMPRESSION: 1. Increasing free intraperitoneal air 11/22/2024, suspicious for bowel leak. Increasing fluid in the mesentery with ascites involving the perihepatic space. No discrete abscess identified. Consider correlation with contrast-enhanced CT abdomen. 2: Increasing consolidation of the lower lobes which may represent atelectasis or pneumonia. 3: Developing small pleural effusions. Abdomen X-Ray 11/23/24 14:04 IMPRESSION: 1: NG tube tip in the stomach. 2: Bibasilar airspace disease, edema versus pneumonia. Head CT 11/26/24 14:47 Impression: No acute intracranial hemorrhage or suspicious mass effect. Chest/Abdomen/Pelvis CTA 11/26/24 14:58 IMPRESSION: No pulmonary embolus. No aortic dissection. Small bilateral pleural effusions, right greater than left with adjacent consolidation, an interval change from prior. Gallbladder distention with mural thickening and surrounding inflammatory change. Right middle and lower lobe nodules, for which follow-up may be performed once patient is beyond this acute phase. No discrete intraperitoneal air is appreciated. Simple free fluid within the dependent portions of the abdomen. Venous Doppler Study 11/28/24 11:19 IMPRESSION: 1. Deep venous thrombosis of the right subclavian, axillary and brachial veins. Dr. Kam Gongora discussed with the code and test clerk]Kurt Castaneda at 11/28/2024 11:23 CDT. Chest X-Ray 12/03/24 06:44 IMPRESSION: 1. Persistent small bilateral pleural effusions.
[2024-12-07] MEDS: PANTOPRAZOLE 40 MG TABLET PO ×2 (09:29→21:33)
[2024-12-07] MEDS: APIXABAN 5 MG TABLET PO ×2 (09:29→21:33)
--- NOTE | 2024-12-07 09:31 | P.PNGS_ITS ---
Progress Note: A&P Assessment and Plan (1) Perforated abdominal viscus: Code(s): R19.8 - Other specified symptoms and signs involving the digestive system and abdomen Status: Acute Assessment and Plan: * Status post ileocolic resection on 11/23 for perforated cecum postoperatively and sepsis. WBC 12.6. Wound VAC in place. Patent draining red bloody fluid. Plan for wound VAC change tomorrow in hopeful discharge to rehab facility by the end of this week. Care coordination anticipating [facility] (Former[facility]). Currently on day 12 of meropenem for sepsis and fecal peritonitis. Patient did have pneumonia in the ICU that has been adequately treated. Consider switch to oral antibiotics. ID pharmacist recommending Augmentin +/- Flagyl. (2) DVT (deep venous thrombosis): Qualifiers: DVT location: upper extremity Affected thrombotic vein of extremity: axillary Chronicity: acute Laterality: right Qualified Code(s): I82.A11 - Acute embolism and thrombosis of right axillary vein Code(s): I82.409 - Acute embolism and thrombosis of unspecified deep veins of unspecified lower extremity Status: Acute Assessment and Plan: * Right upper extremity DVT. No longer having bloody stools. On heparin, but switching to oral anticoagulation today per hospitalist recommendations. (3) Protein-calorie malnutrition, severe: Code(s): E43 - Unspecified severe protein-calorie malnutrition Status: Acute Assessment and Plan: * Patient tolerating a solid diet well. Reportedly eating more than 75% of his meals. Albumin today still pending. Will continue to trend labs. (4) Status post appendectomy: Onset Date: 11/20/24 Code(s): Z90.49 - Acquired absence of other specified parts of digestive tract Status: Acute Assessment and Plan: * S/p attempted laparoscopic appendectomy, open appendectomy on 11/20. Plan I have discussed the patient's case and plan of care with Dr. Mckeon. Subjective Subjective Date/Time Seen: 12/07/24 09:31 Patient reports: no new complaints, tolerating a regular diet and bowel movement Interval history: Patient is doing well today. He was up walking the halls yesterday and up in the chair for a while. He feels hopeful to do this again today. Afebrile. Labs not yet obtained today. Exam GI: Inspection: abdominal wall ecchymosis (Trocar site bruising), Abdominal wall edema and incision (midline abdominal wound vac dressing dry and intact) GI Palp: No Tenderness to palpation present (GI) Other: Wound VAC dressing clean, dry, and intact. Red bloody output in wound VAC canister. No redness around the wound. Objective Data Vital Signs Vital Signs: Vital Signs - 24 hr 12/06/24 10:00 12/06/24 10:56 12/06/24 12:00 Temperature 98.4 F Pulse Rate 92 93 Respiratory Rate 18 Blood Pressure 111/61 Pulse Oximetry 96 Oxygen Delivery Room Air 12/06/24 12:00 12/06/24 14:00 12/06/24 15:59 Temperature Pulse Rate 96 98 108 H Respiratory Rate 18 Blood Pressure 125/63 Pulse Oximetry 96 Oxygen Delivery 12/06/24 16:00 12/06/24 16:00 12/06/24 18:00 Temperature Pulse Rate 110 H 109 H Respiratory Rate Blood Pressure Pulse Oximetry Oxygen Delivery Room Air 12/06/24 20:00 12/06/24 20:00 12/06/24 20:00 Temperature 98.4 F Pulse Rate 108 H 107 H Respiratory Rate 16 Blood Pressure 100/60 Pulse Oximetry 96 Oxygen Delivery Room Air 12/06/24 22:00 12/07/24 00:00 12/07/24 00:00 Temperature 98.3 F Pulse Rate 85 85 Respiratory Rate 18 Blood Pressure 111/71 Pulse Oximetry 97 Oxygen Delivery Room Air 12/07/24 00:00 12/07/24 02:00 12/07/24 04:00 Temperature 97.8 F Pulse Rate 87 68 76 Respiratory Rate 16 Blood Pressure 115/59 L Pulse Oximetry 97 Oxygen Delivery 12/07/24 04:00 12/07/24 04:00 12/07/24 06:00 Temperature Pulse Rate 78 89 Respiratory Rate Blood Pressure Pulse Oximetry Oxygen Delivery Room Air 12/07/24 07:59 Temperature 98.4 F Pulse Rate 101 H Respiratory Rate 20 Blood Pressure 121/73 Pulse Oximetry 97 Oxygen Delivery Intake/Output Intake/Output: Intake & Output 12/04/24 12/05/24 12/06/24 12/07/24 23:59 23:59 23:59 23:59 Intake Total 5913.9 4722.5 2984 1690 Output Total 4561 7094 3930 1800 Balance 1352.9 467.5 -2216 -110 Meds/Results Medications: Active Medications Generic Name Dose Route Start Last Admin Trade Name Freq PRN Reason Stop Dose Admin Acetaminophen 650 mg 11/29/24 09:42 12/06/24 05:30 Acetaminophen 325 Mg Tablet PO 650 mg Q4H PRN Administration Mild Pain (1-3) or Fever Hydrocodone Bitart/Acetaminophen 1 tab 11/29/24 09:42 12/06/24 22:32 Hydrocodone/Acetaminophen (*Crx) 5-325 Mg Tablet PO 1 tab Q4H PRN Administration Pain Rated 4-6 Apixaban 5 mg 12/07/24 09:00 12/07/24 09:29 Apixaban 5 Mg Tablet PO 5 mg Q12HR TAMICA Administration Dextrose 12.5 gm 11/24/24 08:03 Dextrose 50% 25 Gm/50 Ml Syringe IV PUSH PRN PRN Hypoglycemia Protocol Glucagon 1 mg 11/24/24 08:03 Glucagon For Inj 1 Mg Vial IM PRN PRN Hypoglycemia Protocol Glucose 15 gm 11/24/24 08:03 Glucose Oral Gel 15 Gm Of Glucse In 37.5 Gm Tube PO PRN PRN Hypoglycemia Protocol Hydralazine HCl 20 mg 11/30/24 08:04 Hydralazine Hcl 20 Mg/Ml Vial IV PUSH Q4H PRN SBP more than 160 Dextrose 1,000 mls @ 100 mls/hr 11/24/24 08:03 Dextrose 5% 1,000 Ml IVPB PRN PRN Hypoglycemia Protocol Meropenem 1 gm/ Sodium 100 mls @ 200 mls/hr 11/26/24 15:00 12/07/24 06:08 Chloride IVPB 200 mls/hr Q8H TAMICA Administration Ipratropium [place] 0.5 mg 11/30/24 09:51 Ipratropium Br 0.02% Inh Soln 0.5 Mg/2.5 Ml Vial INHALATION Q6HRT PRN Wheezing Levalbuterol HCl 0.63 mg 11/30/24 09:51 Levalbuterol Neb 1.25 Mg/3 Ml INHALATION Q6HRT PRN Wheezing Melatonin 5 mg 11/30/24 19:20 12/06/24 20:21 Melatonin 5 Mg Tablet PO 5 mg HS PRN Administration sleep Morphine Sulfate 4 mg 11/29/24 09:42 12/06/24 10:23 Morphine Sulfate (*Crx) 4 Mg/Ml Inj IV PUSH 4 mg Q2H PRN Administration Pain Rated 7-10 Pantoprazole Sodium 40 mg 12/02/24 21:00 12/07/24 09:29 Pantoprazole 40 Mg Tablet PO 40 mg Q12HR TAMICA Administration Sodium Chloride 10 ml 11/23/24 14:00 12/07/24 06:09 Central Line Flush IV PUSH 10 ml Q8HR TAMICA Administration Sodium Chloride 10 ml 11/23/24 13:39 Central Line Flush IV PUSH PRN PRN with TPN bag changes Sodium Chloride 20 ml 11/23/24 13:39 12/05/24 06:57 Central Line Flush IV PUSH 20 ml PRN PRN Administration after blood draws Radiology Results: ITS Impressions Chest CTA 11/23/24 05:53 IMPRESSION: 1. Free intraperitoneal air in the upper abdomen. Correlate for recent surgery. In the absence of known surgery this is most likely secondary to bowel perforation. Clinically correlate. 2: No large central pulmonary embolism. Limited evaluation of the secondary and tertiary pulmonary arteries. 3: Small right pleural effusion. Dependent atelectasis. 4: Ascites. Abdomen/Pelvis CT 11/23/24 13:00 IMPRESSION: 1. Increasing free intraperitoneal air 11/22/2024, suspicious for bowel leak. Increasing fluid in the mesentery with ascites involving the perihepatic space. No discrete abscess identified. Consider correlation with contrast-enhanced CT abdomen. 2: Increasing consolidation of the lower lobes which may represent atelectasis or pneumonia. 3: Developing small pleural effusions. Abdomen X-Ray 11/23/24 14:04 IMPRESSION: 1: NG tube tip in the stomach. 2: Bibasilar airspace disease, edema versus pneumonia. Head CT 11/26/24 14:47 Impression: No acute intracranial hemorrhage or suspicious mass effect. Chest/Abdomen/Pelvis CTA 11/26/24 14:58 IMPRESSION: No pulmonary embolus. No aortic dissection. Small bilateral pleural effusions, right greater than left with adjacent consolidation, an interval change from prior. Gallbladder distention with mural thickening and surrounding inflammatory change. Right middle and lower lobe nodules, for which follow-up may be performed once patient is beyond this acute phase. No discrete intraperitoneal air is appreciated. Simple free fluid within the dependent portions of the abdomen. Venous Doppler Study 11/28/24 11:19 IMPRESSION: 1. Deep venous thrombosis of the right subclavian, axillary and brachial veins. Dr. Kam Gongora discussed with the apparel rental clerk]Kurt Castaneda at 11/28/2024 11:23 CDT. Chest X-Ray 12/03/24 06:44 IMPRESSION: 1. Persistent small bilateral pleural effusions.
[2024-12-07 09:46] LABS: Hematocrit 24.2 % (42.0-52.0); Hemoglobin 7.8 g/dL (14.0-18.0); Immature Granulocyte Percent A 0.9 % (0-0.5); Lymphocytes Absolute Auto 1.51 K/mm3 (0.9-3.2); Mean Corpuscular HGB Conc 32.2 g/dl (32-36); Mean Corpuscular Hemoglobin 31.1 pg (26-34); Mean Corpuscular Volume 96.4 fl (80-100); Nucleated Red Blood Cells Absolute Auto 0.000 K/mm3 (0.0-0.012); Nucleated Red Blood Cells Perc 0.0 % (0.0-0.2); Platelet Count Result 374 k/mm3 (150-375); Red Blood Count 2.51 M/mm3 (4.6-6.20); White Blood Count 12.6 K/mm3 (4.5-10.0)
[2024-12-07 10:12] LABS: Alanine Aminotransferase 48 U/L (6-50); Albumin Level 2.4 g/dL (3.5-5.1); Alkaline Phosphatase 158 U/L (38-126); Anion Gap 5 mmol/L (4-12); Aspartate Amino Transferase 41 U/L (17-59); Bilirubin,Total 0.4 mg/dL (0.2-1.3); Blood Urea Nitrogen 17 mg/dL (9-20); Calcium 7.9 mg/dL (8.4-10.2); Carbon Dioxide 27 mmol/L (22-30); Chloride 104 mmol/L (98-107); Estimated CRCL calculation 146 ml/min; Estimated Glomerular Filt Rate > 60; Glucose 151 mg/dL (65-110); Magnesium 2.2 mg/dL (1.6-2.3); Potassium 3.6 mmol/L (3.4-5.0); Sodium 136 mmol/L (137-145); Total Protein 5.5 g/dL (6.3-8.2)
[2024-12-07] MEDS: metroNIDAZOLE 500 MG/ISO 100ML 500 MG/100 ML BAG 100 MG IVPB (12:01)
[2024-12-07] MEDS: SODIUM CHLORIDE 0.9% IV 500 ML 999 ML IV CONT (13:52)
[2024-12-07] MEDS: MELATONIN 5 MG TABLET PO (21:32)
[2024-12-07] MEDS: HYDROcodone/acetaminophen (*CRX) 5-325 MG TABLET 1 TAB PO (21:45)
[2024-12-08] VITALS: BP 104/57; PULSE 80; RESP 16; TEMP 36.6; O2SAT 95
[2024-12-08 04:43] LABS: Hematocrit 22.8 % (42.0-52.0); Hemoglobin 7.3 g/dL (14.0-18.0); Immature Granulocyte Percent A 1.1 % (0-0.5); Lymphocytes Absolute Auto 1.49 K/mm3 (0.9-3.2); Mean Corpuscular HGB Conc 32.0 g/dl (32-36); Mean Corpuscular Hemoglobin 30.9 pg (26-34); Mean Corpuscular Volume 96.6 fl (80-100); Nucleated Red Blood Cells Absolute Auto 0.000 K/mm3 (0.0-0.012); Nucleated Red Blood Cells Perc 0.0 % (0.0-0.2); Platelet Count Result 302 k/mm3 (150-375); Red Blood Count 2.36 M/mm3 (4.6-6.20); White Blood Count 9.4 K/mm3 (4.5-10.0)
[2024-12-08 05:12] LABS: Alanine Aminotransferase 42 U/L (6-50); Albumin Level 2.2 g/dL (3.5-5.1); Alkaline Phosphatase 144 U/L (38-126); Anion Gap 4 mmol/L (4-12); Aspartate Amino Transferase 33 U/L (17-59); Bilirubin,Total 0.4 mg/dL (0.2-1.3); Blood Urea Nitrogen 16 mg/dL (9-20); Calcium 7.7 mg/dL (8.4-10.2); Carbon Dioxide 27 mmol/L (22-30); Chloride 107 mmol/L (98-107); Estimated CRCL calculation 157 ml/min; Estimated Glomerular Filt Rate > 60; Glucose 107 mg/dL (65-110); Magnesium 2.3 mg/dL (1.6-2.3); Potassium 3.4 mmol/L (3.4-5.0); Sodium 138 mmol/L (137-145); Total Protein 5.3 g/dL (6.3-8.2)
[2024-12-08] MEDS: CENTRAL LINE FLUSH 10 ML IV PUSH ×3 (05:52→21:08)
[2024-12-08 07:43] VITALS: BP 122/71; PULSE 98; RESP 18; TEMP 37; O2SAT 96
[2024-12-08 08:00] VITALS: PULSE 98; RESP 18; O2SAT 96
[2024-12-08] MEDS: HYDROcodone/acetaminophen (*CRX) 5-325 MG TABLET 1 TAB PO ×2 (08:38→21:07)
[2024-12-08] MEDS: PANTOPRAZOLE 40 MG TABLET PO ×2 (08:39→21:08)
--- NOTE | 2024-12-08 10:32 | PM.IMPN ---
Progress Note: A&P Assessment and Plan (1) Acute hypoxic respiratory failure: Code(s): J96.01 - Acute respiratory failure with hypoxia Status: Acute Assessment and Plan: Acute respiratory failure likely related to SIRS/sepsis -11/22: CTA chest: No large central PE, small right pleural effusion, dependent atelectasis, ascites, free intraperitoneal air in the upper abdomen correlate for some recent surgery -patient was significantly tachypneic and initially placed on 10 L nasal cannula -11/23: Intubated in the ICU Remained stable on MV. He was following commands. He was able to be extubated 11/29 Continues to recover and now on room air. Encourage IS use. Bronchodilators available as needed. (2) Septic shock: Code(s): A41.9 - Sepsis, unspecified organism; R65.21 - Severe sepsis with septic shock Status: Acute Assessment and Plan: Patient developed sepsis on POD #3 2nd to bowel leak. He underwent exploratory laparotomy with ileocolic resection for bowel perforation (cecal perforation) with spillage of bowel contents in the abdominal cavity Weaned pressors and stress dose steroids -11/24: Blood culture positive for Eggerthella lenta (1 anaerobic bottle only) -11/24: Sputum cultures negative -11/24: Urine cultures negative Treated with Zosyn (11/20) and micafungin (11/24) 11/26: Zosyn was discontinued; Meropenem and vancomycin added 11/26: CT brain no acute intracranial hemorrhage or suspicious mass effect 11/26: Bilateral lower extremity venous Dopplers were negative for DVTs 11/28: Bilateral upper venous Dopplers showed DVT of the right subclavian, axillary and brachial veins. (patient does have a right arm PICC line. Fevers possibly due to DVT and pneumonia) Completed micafungin x 7 days. Vancomycin stopped x 9 days (last dose 12/05). Meropenem from 11/26 2 12/07/2024. Metronidazole 500 mg q.8 hours and amoxicillin clavulanic acid 1000 mg p.o. q.8 hours started on 12/07/2024. Leukocytosis now resolved. (3) Status post appendectomy: Onset Date: 11/20/24 Code(s): Z90.49 - Acquired absence of other specified parts of digestive tract Status: Acute Assessment and Plan: 11/20: NG tube inserted due to abdominal distension. Patient underwent attempted laparoscopic appendectomy but converted to an open appendectomy 11/23: Exploratory laparotomy with ileocolic resection for bowel perforation (cecal perforation) with spillage of bowel contents in the abdominal cavity 11/24: Wound VAC placed Started on TPN Oral diet started and TPN stopped. Dietary to help with supplements. Currently on bland diet low-fiber low residue with dietary supplements (4) DVT (deep venous thrombosis): Qualifiers: DVT location: upper extremity Affected thrombotic vein of extremity: axillary Chronicity: acute Laterality: right Qualified Code(s): I82.A11 - Acute embolism and thrombosis of right axillary vein Code(s): I82.409 - Acute embolism and thrombosis of unspecified deep veins of unspecified lower extremity Status: Acute Assessment and Plan: Patient had fevers Bilateral upper extremity venous Doppler (11/28) with DVT of the right subclavian, axillary and brachial vein -discuss with surgery regarding therapeutic Lovenox to which the agreeable -11/28: Started patient on therapeutic Lovenox -right PICC line in place Lovenox on hold due to GI bleed but ultimately switched to heparin gtt. Hgb low but stable in the 7-8 range possibly related to hematoma and oozing from site. Eliquis 5 mg p.o. b.i.d. started on 12/07/2024. Hemoglobin low but stable. Continue to trend. Patient having brown bowel movements. (5) Hyperglycemia: Code(s): R73.9 - Hyperglycemia, unspecified Status: Acute Assessment and Plan: A1c 6.0% in August 2023. Hyperglycemia related to stress response and/or steroids and/or TPN TPN stopped and diet started. Lantus was stopped 12/05 Glucose reasonably well controlled. Continue AccuCheks covering with sliding scale. Hypoglycemia protocol available as needed. (6) Melena: Code(s): K92.1 - Melena Status: Acute Assessment and Plan: 12/02/2024 having melena. GI consulted. EGD on 12/02: gastritis/duodenitis On oral Protonix. GI okay with anticoagulation and started on heparin gtt. Monitor H&H No further melena Plan Patient tripped on 11/05/2024 prior to admission. Found to have a right closed fibular fracture. He has been seen in the office by Dr. Regan. He continues to wear knee immobilizer with non operative management. Follow-up with Dr. Regan. DVT prophylaxis: Continue Eliquis 5 mg p.o. b.i.d. Stress ulcer prophylaxis: Protonix 40 mg p.o. b.i.d. Code Status: Full code Incentive spirometry. Tyson hose stockings, knee-high. Saline lock IV. Subjective Date/time seen: 12/08/24 10:32 Interval history: Patient rest comfortably. Denies pain. Brown bowel movement this morning. Tolerating diet well. Review of Systems Review of Systems: All systems reviewed & are unremarkable except as noted in HPI and below (Subjective) Exam Const: General: comfortable and no acute distress Other: A&O x3 HENMT: Mouth: Yes moist mucous membranes Eyes: Pupils: Equal, round and reactive pupils present Neck: Neck: supple Resp: Effort & Inspection: normal respiratory effort Auscultation: clear to auscultation bilaterally Cardio: Rate: regular rate Rhythm: regular rhythm GI: Other: Slight distension, large belly due to body habitus, wound VAC in place without any extending erythema, or active drainage noted. Neuro: Motor exam (neuro): 5/5 motor strength present throughout Extrem: Other: 2+ bilateral lower extremity edema below the knees. Objective Data Vital Signs Vital Signs: Vital Signs - 24 hr 12/07/24 11:38 12/07/24 16:00 12/07/24 20:00 Temperature 98.4 F 99 F 98.4 F Pulse Rate 123 H 108 H 104 H Respiratory Rate 20 24 H 16 Blood Pressure 105/51 L 114/61 100/52 L Pulse Oximetry 97 95 93 Oxygen Delivery Fraction of Inspired Oxygen 12/07/24 20:00 12/08/24 00:00 12/08/24 07:43 Temperature 98 F 98.6 F Pulse Rate 80 98 Respiratory Rate 16 18 Blood Pressure 104/57 L 122/71 Pulse Oximetry 95 96 Oxygen Delivery Room Air Fraction of Inspired Oxygen 12/08/24 08:00 Temperature Pulse Rate 98 Respiratory Rate 18 Blood Pressure Pulse Oximetry 96 Oxygen Delivery Room Air Fraction of Inspired Oxygen 28 Intake/Output Intake/Output: Intake & Output 12/05/24 12/06/24 12/07/24 12/08/24 23:59 23:59 23:59 23:59 Intake Total 4722.5 2984 2150 1240 Output Total 4475 5152 2355 1200 Balance 467.5 -2216 -200 40 Meds/Results Medications: Active Medications Generic Name Dose Route Start Last Admin Trade Name Freq PRN Reason Stop Dose Admin Acetaminophen 650 mg 11/29/24 09:42 12/06/24 05:30 Acetaminophen 325 Mg Tablet PO 650 mg Q4H PRN Administration Mild Pain (1-3) or Fever Hydrocodone Bitart/Acetaminophen 1 tab 11/29/24 09:42 12/08/24 08:38 Hydrocodone/Acetaminophen (*Crx) 5-325 Mg Tablet PO 1 tab Q4H PRN Administration Pain Rated 4-6 Amoxicillin/Clavulanate Potassium 1 tablet 12/07/24 12:00 12/08/24 05:51 Amoxicillin/Clavulanate K 875-125 Mg Tab PO 1 tablet Q8HR TAMICA Administration Apixaban 5 mg 12/07/24 09:00 12/07/24 21:33 Apixaban 5 Mg Tablet PO 5 mg Q12HR TAMICA Administration Dextrose 12.5 gm 11/24/24 08:03 Dextrose 50% 25 Gm/50 Ml Syringe IV PUSH PRN PRN Hypoglycemia Protocol Glucagon 1 mg 11/24/24 08:03 Glucagon For Inj 1 Mg Vial IM PRN PRN Hypoglycemia Protocol Glucose 15 gm 11/24/24 08:03 Glucose Oral Gel 15 Gm Of Glucse In 37.5 Gm Tube PO PRN PRN Hypoglycemia Protocol Hydralazine HCl 20 mg 11/30/24 08:04 Hydralazine Hcl 20 Mg/Ml Vial IV PUSH Q4H PRN SBP more than 160 Dextrose 1,000 mls @ 100 mls/hr 11/24/24 08:03 Dextrose 5% 1,000 Ml IVPB PRN PRN Hypoglycemia Protocol Ipratropium [place] 0.5 mg 11/30/24 09:51 Ipratropium Br 0.02% Inh Soln 0.5 Mg/2.5 Ml Vial INHALATION Q6HRT PRN Wheezing Levalbuterol HCl 0.63 mg 11/30/24 09:51 Levalbuterol Neb 1.25 Mg/3 Ml INHALATION Q6HRT PRN Wheezing Melatonin 5 mg 11/30/24 19:20 12/07/24 21:32 Melatonin 5 Mg Tablet PO 5 mg HS PRN Administration sleep Metronidazole 500 mg 12/07/24 21:00 12/08/24 05:50 Metronidazole 500 Mg Tablet PO 500 mg Q8HR TAMICA Administration Miscellaneous Information 0 each 12/08/24 00:01 Please Renew [place]. Per [employer] Procedure, It Will Discontinue If Not Renewed XX 01/07/25 00:00 CLARIFY TAMICA Pantoprazole Sodium 40 mg 12/02/24 21:00 12/08/24 08:39 Pantoprazole 40 Mg Tablet PO 40 mg Q12HR TAMICA Administration Sodium Chloride 10 ml 11/23/24 14:00 12/08/24 05:52 Central Line Flush IV PUSH 10 ml Q8HR TAMICA Administration Sodium Chloride 10 ml 11/23/24 13:39 Central Line Flush IV PUSH PRN PRN with TPN bag changes Sodium Chloride 20 ml 11/23/24 13:39 12/05/24 06:57 Central Line Flush IV PUSH 20 ml PRN PRN Administration after blood draws Radiology Results: ITS Impressions Chest CTA 11/23/24 05:53 IMPRESSION: 1. Free intraperitoneal air in the upper abdomen. Correlate for recent surgery. In the absence of known surgery this is most likely secondary to bowel perforation. Clinically correlate. 2: No large central pulmonary embolism. Limited evaluation of the secondary and tertiary pulmonary arteries. 3: Small right pleural effusion. Dependent atelectasis. 4: Ascites. Abdomen/Pelvis CT 11/23/24 13:00 IMPRESSION: 1. Increasing free intraperitoneal air 11/22/2024, suspicious for bowel leak. Increasing fluid in the mesentery with ascites involving the perihepatic space. No discrete abscess identified. Consider correlation with contrast-enhanced CT abdomen. 2: Increasing consolidation of the lower lobes which may represent atelectasis or pneumonia. 3: Developing small pleural effusions. Abdomen X-Ray 11/23/24 14:04 IMPRESSION: 1: NG tube tip in the stomach. 2: Bibasilar airspace disease, edema versus pneumonia. Head CT 11/26/24 14:47 Impression: No acute intracranial hemorrhage or suspicious mass effect. Chest/Abdomen/Pelvis CTA 11/26/24 14:58 IMPRESSION: No pulmonary embolus. No aortic dissection. Small bilateral pleural effusions, right greater than left with adjacent consolidation, an interval change from prior. Gallbladder distention with mural thickening and surrounding inflammatory change. Right middle and lower lobe nodules, for which follow-up may be performed once patient is beyond this acute phase. No discrete intraperitoneal air is appreciated. Simple free fluid within the dependent portions of the abdomen. Venous Doppler Study 11/28/24 11:19 IMPRESSION: 1. Deep venous thrombosis of the right subclavian, axillary and brachial veins. Dr. Kam Gongora discussed with the supervisor audit clerks]Kurt Castaneda at 11/28/2024 11:23 CDT. Chest X-Ray 12/03/24 06:44 IMPRESSION: 1. Persistent small bilateral pleural effusions. Knee X-Ray 12/07/24 16:00 IMPRESSION: 1. No significant change in 2 to 2.5 cm proximal distraction of an avulsion fracture of a portion of the proximal tip of the fibula. 2. Mild widening of the lateral compartment joint space likely secondary to compromise of the stabilizing function of the fibular collateral ligament complex resulting from the avulsion fracture. Labs Labs: Laboratory Results - last 24 hr 12/08/24 04:27 WBC 9.4 RBC 2.36 L Hgb 7.3 L Hct 22.8 L MCV 96.6 MCH 30.9 MCHC 32.0 RDW 13.2 Plt Count 302 MPV 9.3 Immature Gran % (Auto) 1.1 H Neut % (Auto) 73.6 H Lymph % (Auto) 15.9 L [place] % (Auto) 7.3 Eos % (Auto) 1.9 Baso % (Auto) 0.2 Lymph # (Auto) 1.49 [place] # (Auto) 0.7 H Eos # (Auto) 0.2 Baso # (Auto) 0.0 Abs Immat Gran (auto) 0.10 H Absolute Neuts (auto) 6.9 H Absolute Nucleated RBC 0.000 Nucleated RBC % 0.0 Sodium 138 Potassium 3.4 Chloride 107 Carbon Dioxide 27 Anion Gap 4 BUN 16 Creatinine 0.57 L Estim Creat Clear Calc 157 Estimated GFR > 60 Glucose 107 Calcium 7.7 L Magnesium 2.3 Total Bilirubin 0.4 AST 33 ALT 42 Alkaline Phosphatase 144 H Total Protein 5.3 L Albumin 2.2 L
--- NOTE | 2024-12-08 10:34 | PM.PNORT ---
Progress Note: A&P Assessment and Plan (1) Closed right fibular fracture: Qualifiers: Encounter type: subsequent encounter Fibula location: proximal Fracture healing: with routine healing Fracture morphology: other fracture Qualified Code(s): S82.831D - Other fracture of upper and lower end of right fibula, subsequent encounter for closed fracture with routine healing Code(s): S82.401A - Unspecified fracture of shaft of right fibula, initial encounter for closed fracture Status: Acute Assessment and Plan: 4.5 weeks right knee injury with lateral avulsion fracture and lateral knee instability. Subsequent to his knee injury developed appendicitis and has undergone 2 abdominal surgeries. This time he still recuperating from his abdominal surgeries. His knee radiographs show no significant change. He still has instability of the lateral aspect of the knee. Reviewed with the patient. He is not an operative candidate at this time due to his abdominal condition. Continue hinged knee brace when weight-bearing. May weight bear as tolerated right leg. May perform range of motion and strengthening exercises as tolerated. Follow-up with Orthopedics when medically stable and in approximately the next 4 weeks. Subjective Subjective Date/Time Seen: 12/08/24 10:34 Principal diagnosis: Right knee femur fracture Interval history: 4.5 weeks status post right knee injury with distal femur fracture and lateral collateral ligament injury. After orthopedic office visit developed appendicitis and has been in the hospital the past 3 weeks. He has a hinged knee brace for the right knee. States pain and swelling have improved. He has been ambulating with weight on the right leg with the knee brace. Ambulation with assistance. Denies numbness or tingling. Exam Const: General: No confusion Orientation/consciousness: patient oriented x3 and No confusion Extrem: General: capillary refill normal Right upper extremity: normal to inspection Left upper extremity: normal to inspection Right lower extremity: hip/thigh Details: normal to inspection and normal ROM; no tenderness, knee Details: normal to inspection, tenderness Location: of the medial joint line, swelling Location: of the pre-patellar area, abnormal ROM Details: pain with active ROM during Details: in extension and in flexion and with range as follows ( -5 degrees - flexion 120?) and Jane's Test Details: positive medially, ankle ( able to actively flex and extend ankle) Details: no tenderness and foot Details: normal capillary refill, toes with normal ROM, vascular exam Details: dorsalis pedis pulse present and normal capillary refill and motor-sensory exam Details: light-touch normal Location: in all toes; no tenderness Left lower extremity: normal to inspection, hip/thigh Details: no tenderness and no swelling, lower leg, ankle (no calf tenderness) Details: normal ROM; no tenderness and foot Details: normal capillary refill, vascular exam Details: dorsalis pedis pulse present and normal capillary refill and motor-sensory exam light-touch normal in all toes Psych: Affect: normal affect Objective Data Vital Signs Vital Signs: Vital Signs - 24 hr 12/07/24 11:38 12/07/24 16:00 12/07/24 20:00 Temperature 98.4 F 99 F 98.4 F Pulse Rate 123 H 108 H 104 H Respiratory Rate 20 24 H 16 Blood Pressure 105/51 L 114/61 100/52 L Pulse Oximetry 97 95 93 Oxygen Delivery Fraction of Inspired Oxygen 12/07/24 20:00 12/08/24 00:00 12/08/24 07:43 Temperature 98 F 98.6 F Pulse Rate 80 98 Respiratory Rate 16 18 Blood Pressure 104/57 L 122/71 Pulse Oximetry 95 96 Oxygen Delivery Room Air Fraction of Inspired Oxygen 12/08/24 08:00 Temperature Pulse Rate 98 Respiratory Rate 18 Blood Pressure Pulse Oximetry 96 Oxygen Delivery Room Air Fraction of Inspired Oxygen 28 Intake/Output Intake/Output: Intake & Output 12/05/24 12/06/24 12/07/24 12/08/24 23:59 23:59 23:59 23:59 Intake Total 4722.5 2984 2150 1240 Output Total 4255 5200 2350 1200 Balance 467.5 -5456 -200 40 Meds/Results Medications: Active Medications Generic Name Dose Route Start Last Admin Trade Name Freq PRN Reason Stop Dose Admin Acetaminophen 650 mg 11/29/24 09:42 12/06/24 05:30 Acetaminophen 325 Mg Tablet PO 650 mg Q4H PRN Administration Mild Pain (1-3) or Fever Hydrocodone Bitart/Acetaminophen 1 tab 11/29/24 09:42 12/08/24 08:38 Hydrocodone/Acetaminophen (*Crx) 5-325 Mg Tablet PO 1 tab Q4H PRN Administration Pain Rated 4-6 Amoxicillin/Clavulanate Potassium 1 tablet 12/07/24 12:00 12/08/24 05:51 Amoxicillin/Clavulanate K 875-125 Mg Tab PO 1 tablet Q8HR TAMICA Administration Apixaban 5 mg 12/07/24 09:00 12/07/24 21:33 Apixaban 5 Mg Tablet PO 5 mg Q12HR TAMICA Administration Dextrose 12.5 gm 11/24/24 08:03 Dextrose 50% 25 Gm/50 Ml Syringe IV PUSH PRN PRN Hypoglycemia Protocol Glucagon 1 mg 11/24/24 08:03 Glucagon For Inj 1 Mg Vial IM PRN PRN Hypoglycemia Protocol Glucose 15 gm 11/24/24 08:03 Glucose Oral Gel 15 Gm Of Glucse In 37.5 Gm Tube PO PRN PRN Hypoglycemia Protocol Hydralazine HCl 20 mg 11/30/24 08:04 Hydralazine Hcl 20 Mg/Ml Vial IV PUSH Q4H PRN SBP more than 160 Dextrose 1,000 mls @ 100 mls/hr 11/24/24 08:03 Dextrose 5% 1,000 Ml IVPB PRN PRN Hypoglycemia Protocol Ipratropium [place] 0.5 mg 11/30/24 09:51 Ipratropium Br 0.02% Inh Soln 0.5 Mg/2.5 Ml Vial INHALATION Q6HRT PRN Wheezing Levalbuterol HCl 0.63 mg 11/30/24 09:51 Levalbuterol Neb 1.25 Mg/3 Ml INHALATION Q6HRT PRN Wheezing Melatonin 5 mg 11/30/24 19:20 12/07/24 21:32 Melatonin 5 Mg Tablet PO 5 mg HS PRN Administration sleep Metronidazole 500 mg 12/07/24 21:00 12/08/24 05:50 Metronidazole 500 Mg Tablet PO 500 mg Q8HR TAMICA Administration Miscellaneous Information 0 each 12/08/24 00:01 Please Renew [place]. Per [employer] Procedure, It Will Discontinue If Not Renewed XX 01/07/25 00:00 CLARIFY TAMICA Pantoprazole Sodium 40 mg 12/02/24 21:00 12/08/24 08:39 Pantoprazole 40 Mg Tablet PO 40 mg Q12HR TAMICA Administration Sodium Chloride 10 ml 11/23/24 14:00 12/08/24 05:52 Central Line Flush IV PUSH 10 ml Q8HR TAMICA Administration Sodium Chloride 10 ml 11/23/24 13:39 Central Line Flush IV PUSH PRN PRN with TPN bag changes Sodium Chloride 20 ml 11/23/24 13:39 12/05/24 06:57 Central Line Flush IV PUSH 20 ml PRN PRN Administration after blood draws Radiology Results: Knee X-Ray 12/07/24 16:00 IMPRESSION: 1. No significant change in 2 to 2.5 cm proximal distraction of an avulsion fracture of a portion of the proximal tip of the fibula. 2. Mild widening of the lateral compartment joint space likely secondary to compromise of the stabilizing function of the fibular collateral ligament complex resulting from the avulsion fracture. Labs Labs: Laboratory Results - last 24 hr 12/08/24 04:27 WBC 9.4 RBC 2.36 L Hgb 7.3 L Hct 22.8 L MCV 96.6 MCH 30.9 MCHC 32.0 RDW 13.2 Plt Count 302 MPV 9.3 Immature Gran % (Auto) 1.1 H Neut % (Auto) 73.6 H Lymph % (Auto) 15.9 L [place] % (Auto) 7.3 Eos % (Auto) 1.9 Baso % (Auto) 0.2 Lymph # (Auto) 1.49 [place] # (Auto) 0.7 H Eos # (Auto) 0.2 Baso # (Auto) 0.0 Abs Immat Gran (auto) 0.10 H Absolute Neuts (auto) 6.9 H Absolute Nucleated RBC 0.000 Nucleated RBC % 0.0 Sodium 138 Potassium 3.4 Chloride 107 Carbon Dioxide 27 Anion Gap 4 BUN 16 Creatinine 0.57 L Estim Creat Clear Calc 157 Estimated GFR > 60 Glucose 107 Calcium 7.7 L Magnesium 2.3 Total Bilirubin 0.4 AST 33 ALT 42 Alkaline Phosphatase 144 H Total Protein 5.3 L Albumin 2.2 L Imaging My impression: Right knee radiographs reviewed which show avulsion from the lateral knee, most likely distal femur. Mild widening of the lateral joint. Minimal change compared to previous injury radiographs.
[2024-12-08] MEDS: APIXABAN 5 MG TABLET PO ×2 (11:30→21:07)
[2024-12-08 16:00] VITALS: BP 138/54; PULSE 88; RESP 20; TEMP 36.7; O2SAT 93
--- NOTE | 2024-12-08 16:07 | PM.PNGS ---
Progress Note: A&P Assessment and Plan (1) Perforated abdominal viscus: Code(s): R19.8 - Other specified symptoms and signs involving the digestive system and abdomen Status: Acute Assessment and Plan: Status post ileocolic resection on 11/23 for perforated cecum postoperatively and sepsis. WBC normalized. He has transitioned to oral antibiotics, which we would recommend to continue for another week. Continue wound VAC therapy. Wound vac was changed today and there are new areas of granulating tissue. Hematoma appears stable and no issues with bleeding. Plan is for patient to discharge to [facility] We are awaiting insurance approval. Patient is surgically stable for discharge once placement is set up. (2) DVT (deep venous thrombosis): Qualifiers: DVT location: upper extremity Affected thrombotic vein of extremity: axillary Chronicity: acute Laterality: right Qualified Code(s): I82.A11 - Acute embolism and thrombosis of right axillary vein Code(s): I82.409 - Acute embolism and thrombosis of unspecified deep veins of unspecified lower extremity Status: Acute Assessment and Plan: Right upper extremity DVT. Patient has been transitioned to Eliquis. (3) Protein-calorie malnutrition, severe: Code(s): E43 - Unspecified severe protein-calorie malnutrition Status: Acute (4) Status post appendectomy: Onset Date: 11/20/24 Code(s): Z90.49 - Acquired absence of other specified parts of digestive tract Status: Acute Assessment and Plan: S/p attempted laparoscopic appendectomy, open appendectomy on 11/20. Plan I have discussed the patient's case and plan of care with Dr. Mckeon. Subjective Subjective Date/Time Seen: 12/08/24 09:07 Patient reports: no new complaints, flatus, bowel movement and afebrile Interval history: No acute events overnight. Patient tolerating activity and walking in the halls with nursing staff without any issues. He has transitioned to oral antibiotics and is tolerating this well. His WBC count was normal today. No nausea or vomiting. Tolerating his diet and supplements. Patient seen with wound care for wound vac change. Exam Const: General: comfortable and no acute distress GI: Inspection: other (mildly distended) GI Palp: Yes Soft to palpation, No Tenderness to palpation present (GI), No Guarding due to palpation present (GI) and No Rebound tenderness present Auscultation: normal bowel sounds Other: Abdominal wound VAC removed and open wound is showing a few small islands of granulating tissue in the base, still yellow slough visible over the fascia, but fascia intact. No areas of necrotic tissue. Hematoma noted in the right inferior aspect of the wound that is smaller (3.5 cm) today with no active bleeding and is more firm today. The undermining on the right is coming in. Objective Data Vital Signs Vital Signs: Vital Signs - 24 hr 12/07/24 20:00 12/07/24 20:00 12/08/24 00:00 Temperature 98.4 F 98 F Pulse Rate 104 H 80 Respiratory Rate 16 16 Blood Pressure 100/52 L 104/57 L Pulse Oximetry 93 95 Oxygen Delivery Room Air Fraction of Inspired Oxygen 12/08/24 07:43 12/08/24 08:00 Temperature 98.6 F Pulse Rate 98 98 Respiratory Rate 18 18 Blood Pressure 122/71 Pulse Oximetry 96 96 Oxygen Delivery Room Air Fraction of Inspired Oxygen 28 Intake/Output Intake/Output: Intake & Output 12/05/24 12/06/24 12/07/24 12/08/24 23:59 23:59 23:59 23:59 Intake Total 4722.5 2984 2150 1480 Output Total 4255 5200 2350 1200 Balance 467.5 2216 200 280 Meds/Results Medications: Active Medications Generic Name Dose Route Start Last Admin Trade Name Freq PRN Reason Stop Dose Admin Acetaminophen 650 mg 11/29/24 09:42 12/06/24 05:30 Acetaminophen 325 Mg Tablet PO 650 mg Q4H PRN Administration Mild Pain (1-3) or Fever Hydrocodone Bitart/Acetaminophen 1 tab 11/29/24 09:42 12/08/24 08:38 Hydrocodone/Acetaminophen (*Crx) 5-325 Mg Tablet PO 1 tab Q4H PRN Administration Pain Rated 4-6 Amoxicillin/Clavulanate Potassium 1 tablet 12/07/24 12:00 12/08/24 15:39 Amoxicillin/Clavulanate K 875-125 Mg Tab PO 1 tablet Q8HR TAMICA Administration Apixaban 5 mg 12/07/24 09:00 12/08/24 11:30 Apixaban 5 Mg Tablet PO 5 mg Q12HR TAMICA Administration Dextrose 12.5 gm 11/24/24 08:03 Dextrose 50% 25 Gm/50 Ml Syringe IV PUSH PRN PRN Hypoglycemia Protocol Glucagon 1 mg 11/24/24 08:03 Glucagon For Inj 1 Mg Vial IM PRN PRN Hypoglycemia Protocol Glucose 15 gm 11/24/24 08:03 Glucose Oral Gel 15 Gm Of Glucse In 37.5 Gm Tube PO PRN PRN Hypoglycemia Protocol Hydralazine HCl 20 mg 11/30/24 08:04 Hydralazine Hcl 20 Mg/Ml Vial IV PUSH Q4H PRN SBP more than 160 Dextrose 1,000 mls @ 100 mls/hr 11/24/24 08:03 Dextrose 5% 1,000 Ml IVPB PRN PRN Hypoglycemia Protocol Ipratropium [place] 0.5 mg 11/30/24 09:51 Ipratropium Br 0.02% Inh Soln 0.5 Mg/2.5 Ml Vial INHALATION Q6HRT PRN Wheezing Levalbuterol HCl 0.63 mg 11/30/24 09:51 Levalbuterol Neb 1.25 Mg/3 Ml INHALATION Q6HRT PRN Wheezing Melatonin 5 mg 11/30/24 19:20 12/07/24 21:32 Melatonin 5 Mg Tablet PO 5 mg HS PRN Administration sleep Metronidazole 500 mg 12/07/24 21:00 12/08/24 15:39 Metronidazole 500 Mg Tablet PO 500 mg Q8HR TAMICA Administration Miscellaneous Information 0 each 12/08/24 00:01 Please Renew [place]. Per [employer] Procedure, It Will Discontinue If Not Renewed XX 01/07/25 00:00 CLARIFY TAMICA Pantoprazole Sodium 40 mg 12/02/24 21:00 12/08/24 08:39 Pantoprazole 40 Mg Tablet PO 40 mg Q12HR TAMICA Administration Sodium Chloride 10 ml 11/23/24 14:00 12/08/24 15:39 Central Line Flush IV PUSH 10 ml Q8HR TAMICA Administration Sodium Chloride 10 ml 11/23/24 13:39 Central Line Flush IV PUSH PRN PRN with TPN bag changes Sodium Chloride 20 ml 11/23/24 13:39 12/05/24 06:57 Central Line Flush IV PUSH 20 ml PRN PRN Administration after blood draws Radiology Results: ITS Impressions Chest CTA 11/23/24 05:53 IMPRESSION: 1. Free intraperitoneal air in the upper abdomen. Correlate for recent surgery. In the absence of known surgery this is most likely secondary to bowel perforation. Clinically correlate. 2: No large central pulmonary embolism. Limited evaluation of the secondary and tertiary pulmonary arteries. 3: Small right pleural effusion. Dependent atelectasis. 4: Ascites. Abdomen/Pelvis CT 11/23/24 13:00 IMPRESSION: 1. Increasing free intraperitoneal air 11/22/2024, suspicious for bowel leak. Increasing fluid in the mesentery with ascites involving the perihepatic space. No discrete abscess identified. Consider correlation with contrast-enhanced CT abdomen. 2: Increasing consolidation of the lower lobes which may represent atelectasis or pneumonia. 3: Developing small pleural effusions. Abdomen X-Ray 11/23/24 14:04 IMPRESSION: 1: NG tube tip in the stomach. 2: Bibasilar airspace disease, edema versus pneumonia. Head CT 11/26/24 14:47 Impression: No acute intracranial hemorrhage or suspicious mass effect. Chest/Abdomen/Pelvis CTA 11/26/24 14:58 IMPRESSION: No pulmonary embolus. No aortic dissection. Small bilateral pleural effusions, right greater than left with adjacent consolidation, an interval change from prior. Gallbladder distention with mural thickening and surrounding inflammatory change. Right middle and lower lobe nodules, for which follow-up may be performed once patient is beyond this acute phase. No discrete intraperitoneal air is appreciated. Simple free fluid within the dependent portions of the abdomen. Venous Doppler Study 11/28/24 11:19 IMPRESSION: 1. Deep venous thrombosis of the right subclavian, axillary and brachial veins. Dr. Kam Gongora discussed with the sales and distribution clerk]Kurt Castaneda at 11/28/2024 11:23 CDT. Chest X-Ray 12/03/24 06:44 IMPRESSION: 1. Persistent small bilateral pleural effusions. Knee X-Ray 12/07/24 16:00 IMPRESSION: 1. No significant change in 2 to 2.5 cm proximal distraction of an avulsion fracture of a portion of the proximal tip of the fibula. 2. Mild widening of the lateral compartment joint space likely secondary to compromise of the stabilizing function of the fibular collateral ligament complex resulting from the avulsion fracture. Labs Labs: Laboratory Results - last 24 hr 12/08/24 04:27 WBC 9.4 RBC 2.36 L Hgb 7.3 L Hct 22.8 L MCV 96.6 MCH 30.9 MCHC 32.0 RDW 13.2 Plt Count 302 MPV 9.3 Immature Gran % (Auto) 1.1 H Neut % (Auto) 73.6 H Lymph % (Auto) 15.9 L Campbell % (Auto) 7.3 Eos % (Auto) 1.9 Baso % (Auto) 0.2 Lymph # (Auto) 1.49 Campbell # (Auto) 0.7 H Eos # (Auto) 0.2 Baso # (Auto) 0.0 Abs Immat Gran (auto) 0.10 H Absolute Neuts (auto) 6.9 H Absolute Nucleated RBC 0.000 Nucleated RBC % 0.0 Sodium 138 Potassium 3.4 Chloride 107 Carbon Dioxide 27 Anion Gap 4 BUN 16 Creatinine 0.57 L Estim Creat Clear Calc 157 Estimated GFR > 60 Glucose 107 Calcium 7.7 L Magnesium 2.3 Total Bilirubin 0.4 AST 33 ALT 42 Alkaline Phosphatase 144 H Total Protein 5.3 L Albumin 2.2 L
[2024-12-08 20:00] VITALS: PULSE 88; RESP 20; O2SAT 93
[2024-12-08] MEDS: MELATONIN 5 MG TABLET PO (21:07)
[2024-12-09] VITALS: BP 100/45; PULSE 84; RESP 16; TEMP 36.8; O2SAT 93
[2024-12-09] MEDS: CENTRAL LINE FLUSH 10 ML IV PUSH ×2 (05:06→14:04)
[2024-12-09 08:00] VITALS: BP 116/59; PULSE 102; RESP 28; TEMP 36.9; O2SAT 95
[2024-12-09] MEDS: PANTOPRAZOLE 40 MG TABLET PO (08:35)
[2024-12-09] MEDS: APIXABAN 5 MG TABLET PO (08:35)
[2024-12-09 08:47] LABS: Hematocrit 25.5 % (42.0-52.0); Hemoglobin 8.2 g/dL (14.0-18.0); Immature Granulocyte Percent A 0.7 % (0-0.5); Lymphocytes Absolute Auto 1.57 K/mm3 (0.9-3.2); Mean Corpuscular HGB Conc 32.2 g/dl (32-36); Mean Corpuscular Hemoglobin 30.6 pg (26-34); Mean Corpuscular Volume 95.1 fl (80-100); Nucleated Red Blood Cells Absolute Auto 0.020 K/mm3 (0.0-0.012); Nucleated Red Blood Cells Perc 0.2 % (0.0-0.2); Platelet Count Result 333 k/mm3 (150-375); Red Blood Count 2.68 M/mm3 (4.6-6.20); White Blood Count 12.3 K/mm3 (4.5-10.0)
[2024-12-09 09:36] LABS: Anion Gap 6 mmol/L (4-12); Blood Urea Nitrogen 18 mg/dL (9-20); Calcium 7.9 mg/dL (8.4-10.2); Carbon Dioxide 25 mmol/L (22-30); Chloride 104 mmol/L (98-107); Estimated CRCL calculation 136 ml/min; Estimated Glomerular Filt Rate > 60; Glucose 179 mg/dL (65-110); Potassium 3.6 mmol/L (3.4-5.0); Sodium 135 mmol/L (137-145)
--- NOTE | 2024-12-09 11:09 | PCNFU ---
Nutrition Follow-Up Complete: Altered GI function as related to Perforated Bowel as evidenced by NPO. Goal:Meet estimated nutritional needs. Pt meeting goal Pt current nutrition is Low fiber, Ensure TID, MAI BID. Nutrition recommendation: continue with current plan of care Last recorded weight is 115 kg. Bowel Motility: +BM 12/08 Labs Reviewed: Hgb:8.2, HCT:25.5, NA:135, Cr:0.67, Glu:179 Meds Noted: protonix, eliquis Skin: wound vac to abdomen Additional Notes: Pt continues on a low fiber diet, intake excellent at 100% all meals, pt tolerating well, also drinking Ensure TID and MAI BID for wound healing. Encourage continued good intake Will monitor weight, labs, skin, diet orders, meds. Follow up in 5 days.
[2024-12-09 11:13] LABS: Magnesium 2.3 mg/dL (1.6-2.3)
--- NOTE | 2024-12-09 14:16 | WNDPHOTO ---
PHOTO ONLY - See Nursing Notes and/ or assessments for documentation.
--- NOTE | 2024-12-09 14:27 | PM.DS ---
DS: Admitting Diagnosis Discharge Date 12/09/2024 Admitting Diagnosis Ruptured appendicitis with generalized peritonitis DS: Discharge Diagnosis Discharge Diagnosis (1) DVT (deep venous thrombosis): Qualifiers: Affected thrombotic vein of extremity: axillary Chronicity: acute DVT location: upper extremity Laterality: right Qualified Code(s): I82.A11 - Acute embolism and thrombosis of right axillary vein Code(s): I82.409 - Acute embolism and thrombosis of unspecified deep veins of unspecified lower extremity Status: Acute (2) Perforated abdominal viscus: Code(s): R19.8 - Other specified symptoms and signs involving the digestive system and abdomen Status: Acute (3) Status post appendectomy: Onset Date: 11/20/24 Code(s): Z90.49 - Acquired absence of other specified parts of digestive tract Status: Acute (4) Appendicitis: Qualifiers: Acute appendicitis type: with generalized peritonitis Appendicitis abscess presence: without abscess Appendicitis gangrene presence: with gangrene Appendicitis perforation presence: with perforation Appendicitis type: acute appendicitis Qualified Code(s): K35.201 - Acute appendicitis with generalized peritonitis, with perforation, without abscess Code(s): K37 - Unspecified appendicitis Status: Acute (5) Closed right fibular fracture: Qualifiers: Encounter type: subsequent encounter Fibula location: proximal Fracture healing: with routine healing Fracture morphology: other fracture Qualified Code(s): S82.831D - Other fracture of upper and lower end of right fibula, subsequent encounter for closed fracture with routine healing Code(s): S82.401A - Unspecified fracture of shaft of right fibula, initial encounter for closed fracture Status: Acute Assessment and Plan: Managed by Ortho outpatient. Continue to use hinged knee brace for ambulation. Weightbearing as tolerated. DS: Summary Hospital Course Reason for hospitalization: Patient had been experiencing abdominal pain diarrhea and fevers for at least 3 days. When he woke up again in the morning with fever and abdominal pain he decided to come to the emergency room. Evaluation there showed [place] to [place] [address] and diffuse abdominal tenderness. CT showed evidence of ruptured appendicitis with appendicoliths. Hospital Course: Patient presented to the ED on 11/20/2024 emotion to have a fever of 38.1. His white blood cell count was 22.[address] scan was obtained and showed a 2.4 cm dilated appendix with mid appendiceal appendicolith. Patient was taken to the OR the same day for laparoscopic appendectomy. Unfortunately, due to severe adhesion of the appendix, distal ileum and ileal mesentery, procedure was converted to open. The colon and small intestine were carefully evaluated for any signs of perforation or significant in. Surgery lasted 3 hours, which is 4-5 times longer than usual. Right lower quadrant [address] drain was placed in the area of the abscess. Patient was awakened and taken to recovery in good condition. Patient continued on IV Zosyn. On postop day 1 patient denied any abdominal pain or nausea. Not out of bed yet. NG tube with minimal output overnight. Pod 2 patient started experiencing abdominal pain. Reported feeling more sore, but he was able to walk the halls and tolerated it well. Bloody drainage on dressing that require dressing change. NG tube with 400 cc out. Passing flatus. Overnight, patient developed acute hypoxic respiratory failure of uncertain etiology. He patient became leukopenic. Remained afebrile. Patient [address] of chest which was negative for any large vessel P the more peripheral exam was limited due to contrast timing and motion artifact. Patient is still complaining of right-sided chest pain. He had rapid increase in oxygen requirement up to 10 L nasal cannula. Patient tachypneic and struggling to maintain oxygen sats of 92% on 10 L. patient placed on Airvo. ABG demonstrated mild respiratory alkalosis. No discrete abscess identified. Increasing consolidation of the lower lobes which may represent atelectasis or pneumonia. Developing small pleural effusions. Stat troponin ordered. CT demonstrated postoperative changes consistent with recent surgery. No abscess identified. EKG repeated and demonstrated sinus tachycardia with nonspecific T-wave abnormalities. Cheetah score checked to see if patient is fluid responsive. Echocardiogram ordered and fairly normal.. Electrolyte panel with mild hypokalemia 40 mEq of potassium chloride rider given. Lower extremity Dopplers obtained to rule out DVT. Pulmonary was consulted for acute respiratory failure. Patient transferred to ICU. Repeat CT of the abdomen and pelvis demonstrated increasing free intraperitoneal air suspicious for bowel leak. Increasing fluid in the mesentery with ascites involving the perihepatic space.CT results discussed with the surgeon who agreed to take patient back to OR on 11/23 for exploratory laparotomy. Patient was intubated successfully and placed on mechanical ventilation. Sedated with propofol and fentanyl infusion. In the OR there was a 1 mm opening in the cecum about 2 and a 0.5 cm from the appendiceal stump. There was a lot of enteric content in the abdomen. Given the perforation was relatively small, the area around the perforation and so it may have been injured as well. Ileocolic resection with hand-sewn 2 layer [id number] anastomosis was performed. The wound was left open in anticipation of wound VAC therapy. Patient was tachycardic through the procedure but did not require any vasopressor agents. The patient was kept intubated and transferred directly to the ICU. Postop day 1 patient was febrile, tachycardic, tachypneic overnight. Also hypotensive. Currently still intubated on pressors. Wound VAC was applied today which patient tolerated well. Fascial plane intact with no dehiscence. Arterial line placed by shanker out. On 11/25 patient was still significantly hypoxemic requiring FiO2 70% and 12 of PEEP on the ventilator Lovenox continued. WBC higher, but likely due to maturation of band forms as his number of bands has decreased on the differential. Pathology did not see any sign of a tumor or other unexpected finding. Showed perforation but otherwise normal mucosa. Zosyn and micafungin continued TPN started per Dr. Lugo. On 11/26 patient was down to only 1 pressor, acidosis resolved, kidney functions are normal. Eventually wean completely pressors. CTA chest abdomen pelvis demonstrated right middle and lower lobe nodules and small bilateral pleural effusions, right greater than left with adjacent consolidation. 11/27 patient remained intubated and sedated. Still febrile but now low-grade. WBC improving. TPN and wound VAC therapy continued, as well as IV Zosyn and micafungin. Vancomycin added for pneumonia. Patient being diuresed with Bumex. Bilateral upper venous Doppler showed DVT of the right subclavian, axillary and brachial veins. Patient does have a right arm PICC. Fevers possibly due to DVT and pneumonia. Anticoagulation continued. On 11/28 fecal drainage from the lower 1/3 of the wound was noted suggestive of colocutaneous fistula. Patient extubated on 11/29. Still febrile and tachypneic. WBC decreasing. On 11/30 no stool or odor an abdominal wound noted. Patient moved to IMU. Clear liquids started 12/01. There was concern for upper GI bleed with dark stool and anemia. GI consulted and agreed to proceed with urgent EGD. EGD demonstrated mild patchy gastritis. No mucosal bleeding. Moderate duodenitis. No mucosal bleeding. PPI daily. Bowel function returned. Sepsis and peritonitis continue to improve. PT and OT on board. On 12/04 patient tolerating low-fiber diet and yogurt. Having bowel movements still with a small amount of old blood, but no bright red or melanotic stools. TPN still continued. On 12/05 it was noted that his hematoma had developed in the wound bed. No active bleeding but wound VAC discontinued. Wet to dry dressing applied. On 12/06 hematoma appeared stable Vaseline gauze was applied to the area before the wound VAC was placed again. IV antibiotics continued given his sepsis and fecal peritonitis. Care coordination planning discharge to [facility]. 12/07 patient switch to oral antibiotics Augmentin and Flagyl. Orthopedic surgeon re-evaluated patient on 12/08 and recommending continued hinged knee brace when weight-bearing. Weightbearing as tolerated on right leg. Patient doing well walking halls with PT. 12/08 patient stable for discharge, just waiting insurance approval. 12/09 patient stable for discharge. Insurance approved [facility]. Patient did know that he got the wound VAC cord stuck in the chair that pulled a little, but no other complaints. Status at Discharge Functional status at discharge: uses cane/walker Overall status at discharge: patient is progressing back to baseline Time Spent with Patient Time attestation: Total time spent providing and/or coordinating discharge services: Time spent: Greater than 30 minutes Exam Const: General: comfortable and no acute distress Eyes: General: appearance normal, both eyes and all related structures Neck: Neck: supple Resp: Other: Sitting up talking, without shortness breath. GI: Other: Wound VAC in place draining minimal serosanguineous fluid. No surrounding redness or erythema to the wound. All other laparoscopic sites with glue intact. Skin: General skin exam: normal color Extrem: General: normal to inspection Psych: Mental Status: mental status grossly normal DS: Data Data Completed and Pending Completed studies during hospitalization: Pending at discharge 11/20/24 18:56 Surgical [PTH] Routine 11/23/24 15:56 Surgical [PTH] Routine 12/02/24 14:47 Surgical [PTH] Routine Labs on day of discharge: Labs from last 24 hours 12/09/24 08:35 WBC 12.3 H RBC 2.68 L Hgb 8.2 L Hct 25.5 L MCV 95.1 MCH 30.6 MCHC 32.2 RDW 13.0 Plt Count 333 MPV 9.1 Immature Gran % (Auto) 0.7 H Neut % (Auto) 80.4 H Lymph % (Auto) 12.8 L Hampton % (Auto) 5.2 Eos % (Auto) 0.7 Baso % (Auto) 0.2 Lymph # (Auto) 1.57 [place] # (Auto) 0.6 Eos # (Auto) 0.1 Baso # (Auto) 0.0 Abs Immat Gran (auto) 0.09 H Absolute Neuts (auto) 9.9 H Absolute Nucleated RBC 0.020 H Nucleated RBC % 0.2 Sodium 135 L Potassium 3.6 Chloride 104 Carbon Dioxide 25 Anion Gap 6 BUN 18 Creatinine 0.67 L Estim Creat Clear Calc 136 Estimated GFR > 60 Glucose 179 H Calcium 7.9 L Magnesium 2.3 Procalcitonin Pending Discharge Plan Discharge Attending physician on discharge: Yariel Mckeon Consulting providers: Joanie Rivas; Isabelle Lugo Discharging Clinician: Opal Wilkerson Anticipated Discharge Date/Time: 12/09/24 15:28 Patient Disposition: [facility] Activity: no shower Diet: regular Wound Care Instructions: follow printed instructions Discharge Instructions: Wound vac to abdomen to be changed 3 times per week. There is a small hematoma in the distal part of the wound bed. Cover this with Fenestrated Vaseline gauze, then apply Black wound vac foam to wound bed. Settings: -125 mmHg low continuous pressure Contact wound center when patient close to discharge to set up follow up with Dr. Cortez. [phone] OK for patient to have regular diet. Continue Eliquis for recent DVT. Patient Instructions: Antibiotic Form Patient Language: Khmer Follow-up/Referrals: Delroy Cueto MD [Primary Care Provider] - Discharge Medications: New amoxicillin-pot clavulanate 875-125 mg tablet 1 tablet PO Q8H Qty: 21 0RF metronidazole 500 mg tablet 500 mg PO Q8H Qty: 21 0RF No Action Xhance 93 mcg/actuation aerosol breath activated 1 spray INTRANASAL Q12H tadalafil 5 mg tablet See Rx Instructions .ROUTE .COMPLEX Qty: 90 0RF Dose Instruction: TAKE 1 TABLET BY MOUTH EVERY DAY Rx Instructions: TAKE 1 TABLET BY MOUTH EVERY DAY Date of admission: 11/20/24 21:10 Primary Care Provider: Delroy Cueto Admitting Provider: Rojelio Cortez Attending physician on admission: Rojelio Cortez Condition: Stable
[2024-12-09 14:55] LABS: Procalcitonin 0.3 ng/mL
--- NOTE | 2024-12-09 16:35 | PC.NURSE ---
[facility].
== END 2024-12-09 16:45 | DRG 329 ==
LOC: ANHED 12:14 → ANHSURGERY 16:19 → ANH2MED 11-21 11:26 → ANHIMU 11-23 08:47 → ANHICU 11-23 13:51 → ANHIMU 12-09 13:48 → ANH2MED 12-12 09:09 → ANHICU 12-12 09:09 → ANHIMU 12-12 09:09
PROVIDERS: General Practice; Internal Medicine; Internal Medicine Gastroenterology; Nurse Practitioner Family; Surgery; Admitting Provider Surgery; Emergency Provider Student in an Organized Health Care Education/Training Program; PCP Family Medicine
PROC: 0DTJ4ZZ Resection of Appendix, Percutaneous Endoscopic Approach (ICD-10-PCS; CPT 44970; principal; 2024-11-20 16:30)
PROC: 0DTH0ZZ Resection of Cecum, Open Approach (ICD-10-PCS; CPT 49000; principal; 2024-11-23 14:30)
PROC: 0DJ08ZZ Inspection of Upper Intestinal Tract, Via Natural or Artificial Opening Endoscopic (ICD-10-PCS; principal; 2024-12-02 15:15)
DX: K35.201 Acute appendicitis with generalized peritonitis, with perforation, without abscess (principal); A41.9 Sepsis, unspecified organism; E43 Unspecified severe protein-calorie malnutrition; J96.01 Acute respiratory failure with hypoxia; R65.21 Severe sepsis with septic shock; E87.4 Mixed disorder of acid-base balance; I82.621 Acute embolism and thrombosis of deep veins of right upper extremity; I82.B11 Acute embolism and thrombosis of right subclavian vein; I82.A11 Acute embolism and thrombosis of right axillary vein; T82.868A Thrombosis due to vascular prosthetic devices, implants and grafts, initial encounter; K91.870 Postprocedural hematoma of a digestive system organ or structure following a digestive system procedure; K91.71 Accidental puncture and laceration of a digestive system organ or structure during a digestive system procedure; K92.1 Melena; D62 Acute posthemorrhagic anemia; E87.6 Hypokalemia; K29.70 Gastritis, unspecified, without bleeding; K29.80 Duodenitis without bleeding; R73.9 Hyperglycemia, unspecified; S82.401D Unspecified fracture of shaft of right fibula, subsequent encounter for closed fracture with routine healing; G47.33 Obstructive sleep apnea (adult) (pediatric); F41.9 Anxiety disorder, unspecified; K76.0 Fatty (change of) liver, not elsewhere classified; Z20.822 Contact with and (suspected) exposure to COVID-19; E78.00 Pure hypercholesterolemia, unspecified; N52.9 Male erectile dysfunction, unspecified; K42.9 Umbilical hernia without obstruction or gangrene; Z53.31 Laparoscopic surgical procedure converted to open procedure; Z87.891 Personal history of nicotine dependence; Y83.8 Other surgical procedures as the cause of abnormal reaction of the patient, or of later complication, without mention of misadventure at the time of the procedure
CPT/HCPCS: 31500; 36415; 36569; 36600; 70450; 71045; 71275; 73564; 74176; 74177; 80048; 80053; 80069; 80202; 81001; 82375; 82550; 82805; 82948; 83050; 83605; 83690; 83735; 83880; 84100; 84132; 84145; 84466; 84478; 84484; 85014; 85018; 85025; 85027; 85610; 85730; 86140; 86850; 86900; 86901; 87040; 87070; 87086; 87205; 87637; 87641; 88304; 88305; 88307; 93005; 93970; 94002; 94003; 94640; 94667; 96361; 96365; 96372; 96375; 97110; 97116; 97162; 97163; 97165; 97530; 97535; 99285; A9270; C1751; C8929; J0616; J1100; J1171; J1644; J1650; J1720; J1741; J1815; J1836; J1938; J1939; J2003; J2185; J2248; J2250; J2270; J2371; J2405; J2470; J2543; J2704; J3010; J3373; J3480; J7030; J7040; J7050; J7060; J7120; Q9957; Q9967

== ENCOUNTER 2024-12-23 10:02 | Outpatient (CLI) | payer BC, SELFPAY ==
--- OUTSIDE RECORDS SUMMARY | 2024-12-23 10:05 | XMS_ITS | Clinical Summary ---
Author Organization [facility] Address [address] [place] [id number] Care Team Providers Care Can Conveyor Feeder Name Role Phone Unavailable Primary Care Provider [...]
[2024-12-23 10:33] LABS: Hematocrit 34.5 % (42.0-52.0); Hemoglobin 10.4 g/dL (14.0-18.0); Immature Granulocyte Percent A 0.6 % (0-0.5); Lymphocytes Absolute Auto 2.51 K/mm3 (0.9-3.2); Mean Corpuscular HGB Conc 30.1 g/dl (32-36); Mean Corpuscular Hemoglobin 28.8 pg (26-34); Mean Corpuscular Volume 95.6 fl (80-100); Nucleated Red Blood Cells Absolute Auto 0.000 K/mm3 (0.0-0.012); Nucleated Red Blood Cells Perc 0.0 % (0.0-0.2); Platelet Count Result 469 k/mm3 (150-375); Red Blood Count 3.61 M/mm3 (4.6-6.20); White Blood Count 6.8 K/mm3 (4.5-10.0)
== END 2024-12-23 10:03 | disposition home or self-care (01) ==
LOC: ANHLAB 10:03
PROVIDERS: PCP Family Medicine; Visit Provider Student in an Organized Health Care Education/Training Program
DX: D64.9 Anemia, unspecified (principal)
CPT/HCPCS: 36415; 85025

== ENCOUNTER 2025-03-03 14:15 | Outpatient (CLI) | payer BC, SELFPAY ==
--- NOTE | ~2025-03-03 | US_ITS ---
EXAMINATION: US venous doppler UE RT, 03/03/2025 14:37 CDT HISTORY: I82.A11 - Acute embolism and thrombosis of right axillary... Comparison: None Technique: Multiple lugo scale and color Doppler sonographic images were obtained of the internal jugular, subclavian, axillary, brachial, basilar, radial and ulnar veins. Findings: Venous System:Normal flow, augmentation and compressibility. No echogenic thrombus identified. Soft tissues: Soft tissues are unremarkable. Impression: Negative for DVT. Reviewed, dictated and finalized at location P. Impression: Negative for DVT.
--- OUTSIDE RECORDS SUMMARY | 2025-03-03 14:20 | XMS_ITS | Clinical Summary ---
Author Organization [facility] Address [address] [place] [id number] Care Team Providers Care Bar Gauger And Lubricator Tender Name Role Phone Unavailable Primary Care Provider [...] Vaccines (1 of 2) 2019 COVID-19 Vaccine ( - 2024-2 6 season) 2025 Influenza Adult (#1) 2025 Hepatitis A Vaccines Aged Out No long er eligible based on patient's age to complete this topic Meningococcal B Vaccine Aged Out No l onger eligible based on patient's age to complete this topic Meningococcal Vaccine Aged Out No olive zev eligible based on patient's age to complete this topic RSV Immunizations Under 20 Months Aged Out No longer eligible based on patient's age to complete this topic
== END 2025-03-03 14:16 | disposition home or self-care (01) ==
PROVIDERS: PCP Family Medicine; Visit Provider Student in an Organized Health Care Education/Training Program
DX: I82.A11 Acute embolism and thrombosis of right axillary vein (principal)
CPT/HCPCS: 93971

== ENCOUNTER 2025-03-16 07:06 | Outpatient (RCR) | payer BC, SELFPAY ==
--- NOTE | 2024-12-19 08:42 | WNDPHOTO ---
PHOTO ONLY - See Nursing Notes and/ or assessments for documentation.
[2024-12-19 10:54] VITALS: BMI 35.4
== END 2025-03-19 23:59 | disposition home or self-care (01) ==
LOC: ANHWOC 07:06
PROVIDERS: PCP Family Medicine; Visit Provider Surgery
DX: T81.320A Disruption or dehiscence of gastrointestinal tract anastomosis, repair, or closure, initial encounter (principal); S31.109A Unspecified open wound of abdominal wall, unspecified quadrant without penetration into peritoneal cavity, initial encounter
CPT/HCPCS: 97606; 99213; 99214; G0463

== ENCOUNTER 2025-03-19 09:57 | Outpatient (CLI) | payer BC, SELFPAY ==
--- NOTE | ~2025-03-19 | CT_ITS ---
EXAMINATION: CT abdomen w con DATE: 03/19/2025 10:55 INDICATION: Abdominal hernia. TECHNIQUE: Computed tomography (CT) of the abdomen was performed with 100 mL Omnipaque 350 intravenous contrast. Automated exposure control and iterative reconstruction technique were employed. The dose-length product was 645.15 mGy-cm. COMPARISON: CT abdomen and pelvis 11/26/24 FINDINGS: The visualized portions of the lung bases demonstrate mild atelectasis. A calcified right lung nodule and calcified right hilar lymph nodes are consistent with old granulomatous disease. No pleural effusion. The heart size is normal. No pericardial effusion. The liver, gallbladder, pancreas, and adrenal glands are normal. Calcifications in the spleen are consistent with old granulomatous disease. The kidneys are normal. There is a widemouthed ventral hernia containing nonobstructed small and large bowel. There are surgical changes in the right colon. There are no pathologically enlarged lymph nodes. There is no ascites. There is mild thoracic and lumbar spondylosis. IMPRESSION: 1. Widemouthed hernia containing nonobstructed small and large bowel. Reviewed, dictated and finalized at location E. E [facility]
== END 2025-03-19 09:58 | disposition home or self-care (01) ==
PROVIDERS: PCP Family Medicine; Visit Provider Physician Assistant
DX: R19.8 Other specified symptoms and signs involving the digestive system and abdomen (principal); K43.9 Ventral hernia without obstruction or gangrene; K35.201 Acute appendicitis with generalized peritonitis, with perforation, without abscess; Z90.49 Acquired absence of other specified parts of digestive tract
CPT/HCPCS: 74160; Q9967